=== PATIENT | female | born 1950 | race Caucasian/White ===

== ENCOUNTER 2022-09-08 12:07 | Outpatient (OUT) | payer MEDICARE, SELFPAY ==
[2022-09-08 12:39] LABS: Hematocrit 42.4 % (36.0-48.0); Hemoglobin 13.9 g/dL (12.0-16.0)
[2022-09-08 12:42] LABS: Bilirubin Urine NEGATIVE (NEGATIVE); Blood Urine NEGATIVE (NEGATIVE); Clarity Urine CLEAR (CLEAR); Color Urine LT. YELLOW (YELLOW); Glucose Urine UA NEGATIVE (NEGATIVE); Ketones Urine NEGATIVE (NEGATIVE); Leukocyte Esterase Urine LARGE (NEGATIVE); Nitrite Urine NEGATIVE (NEGATIVE); Protein Urine TRACE mg/dL (NEG/TRACE); pH Urine 6.5 (5.0-9.0)
[2022-09-08 13:08] LABS: Creatinine Urine Random 140.56 mg/dL (20.00-300.00); Protein Creatinine Ratio Urine 0.23
[2022-09-08 13:15] LABS: Alanine Aminotransferase 23 U/L (14-59); Albumin Globulin Ratio 1.1; Alkaline Phosphatase 73 U/L (46-116); Anion Gap 8.6; Aspartate Amino Transferase 20 U/L (15-37); BUN Creatinine Ratio 16.3; Bilirubin Total 0.4 mg/dL (0.2-1.0); Calcium 9.9 mg/dL (8.5-10.1); Carbon Dioxide 27.6 mmol/L (21.0-32.0); Chloride 100 mmol/L (98-107); Estimated GFR (African America >60 (>=60); Estimated GFR (Non-African Ame 55 (>=60); Globulin 3.5 g/dL; Glucose 103 mg/dL (74-106); Potassium 4.2 mmol/L (3.5-5.1); Sodium 132 mmol/L (136-145); Total Protein 7.5 g/dL (6.4-8.2); Uric Acid 2.9 mg/dL (2.6-6.0)
[2022-09-09 10:09] LABS: PTH, Intact 19 pg/mL (15-65)
== END 2022-09-08 12:08 | disposition home or self-care (01) ==
LOC: LAB 12:13
PROVIDERS: PCP Family Medicine; Visit Provider Internal Medicine Nephrology
DX: E10.21 Type 1 diabetes mellitus with diabetic nephropathy (principal); N18.32 Chronic kidney disease, stage 3b; E78.5 Hyperlipidemia, unspecified; I10 Essential (primary) hypertension
CPT/HCPCS: 36415; 80053; 81003; 82306; 82570; 83735; 83970; 84100; 84156; 84550; 85014; 85018

== ENCOUNTER 2022-12-30 14:15 | Outpatient (OUT) | payer MEDICARE, SELFPAY ==
--- NOTE | 2022-12-30 14:23 | XR_ITS ---
[address] [address] Patient Name: NETTA DAWSON MRN: [id number] date: 1950 Sex: F Assigned Patient Location: [facility] Current Patient Location: Accession/Order Number: [id number] Exam Date: 12/30/2022 14:40 Report Date: 12/31/2022 02:53 At the request of: DEWAYNE RICHEY Procedure: XR DEXA axial skeleton EXAMINATION: XR DEXA axial skeleton HISTORY: Primary Ovarian Failure Z00.01 COMPARISON: DEXA bone densitometry 09/28/2017 TECHNIQUE: Dual-energy X-ray absorptiometry (DXA) was performed. FINDINGS: SPINE ANALYSIS: Average bone mineral density is 1.209 g/cm2. T-score (standard deviation relative to young adult mean): 0.1 . -0.3% change since prior study. HIP ANALYSIS: Lowest bone mineral density is within the right femoral neck, 0.711 g/cm2. T-score (standard deviation relative to young adult mean): -2.4 . -10.7% change since prior study. XR/XR DEXA axial skeleton IMPRESSION: [employer] Classification: Osteopenia - Moderate Fracture Risk Electronically authenticated by: LISETTE FELIX Date: 12/31/2022 02:53
--- NOTE | 2022-12-30 14:23 | MM_ITS ---
Patient Name: NETTA DAWSON MR#: [id number] : 1950 Exam Date: 12/30/2022 Ordering Doctor: DR. DEWAYNE RICHEY . RADIOLOGY REPORT PROCEDURE: MM TOMOSYNTHESIS SCREENING BI COMPARISON: MG MAMM SCREEN 3D LESIA CAD, 12/01/2021. MG MAMM SCREEN 3D LESIA CAD, 11/28/2020. MG MAMM SCREEN LESIA W CAD, 11/16/2019. MG MAMM LESIA SCRN W CAD DIG, 04/17/2013. INDICATIONS: Screening Calculator Name NCI Breast Cancer Risk Assessment Tool 5 Year Breast Cancer Risk 1.50% Lifetime Breast Cancer Risk 3.50% Personal Breast Cancer No Personal Ovarian Cancer No Treatments None Family Cancers None LOCATION: [facility] BREAST COMPOSITION: Scattered areas fibroglandular density. FINDINGS: DIAGNOSTIC CATEGORY 2--BENIGN FINDING: RIGHT BREAST: No significant suspicious finding. Scattered benign-appearing calcifications are present. No significant change has occurred. LEFT BREAST: No significant suspicious finding. Scattered benign-appearing calcifications are present. No significant change has occurred. RECOMMENDATIONS: ROUTINE MAMMOGRAM AND CLINICAL EVALUATION IN 12 MONTHS. PLEASE NOTE: A NORMAL MAMMOGRAM DOES NOT EXCLUDE THE POSSIBILITY OF BREAST CANCER. A CLINICALLY SUSPICIOUS PALPABLE LUMP SHOULD BE BIOPSIED. Dictated by: Daniel Patel M.D. on 01/05/2023 at 12:59 Approved by: Daniel Patel M.D. on 01/05/2023 at 13:02
== END 2022-12-30 14:16 | disposition home or self-care (01) ==
LOC: MAMMO 14:15
PROVIDERS: PCP Family Medicine; Visit Provider Family Medicine
DX: Z12.31 Encounter for screening mammogram for malignant neoplasm of breast (principal); Z00.01 Encounter for general adult medical examination with abnormal findings; E28.39 Other primary ovarian failure; M85.80 Other specified disorders of bone density and structure, unspecified site
CPT/HCPCS: 77063; 77067; 77080

== ENCOUNTER 2023-02-22 12:31 | Outpatient (OUT) | payer MEDICARE, SELFPAY ==
--- OUTSIDE RECORDS SUMMARY | 2023-02-22 12:34 | XMS_ITS | CCD ---
Author Name Unknown Address [address] [place] [address] Organization [facility] Care Team Providers Care Midwife Practitioner Name Role Phone Darlene Hatfield Unavailable Unavailable Unavailable [facility] Consulting MIKEY Olson Attending Unavailable AMARILIS PIERCE Admitting Unavailable DARLENE HATFIEDL Primary Care Unavailable [facility], [facility] Consulting Unavailable Oxana Felipe Unavailable Ramsey Steward Unavailable Selene, Dr. Darlene Elena Primary Care Unavailab le McGuinn II, Dr. Zak Kendall Referring Unavailable McGuinn II, Dr. Zak Kendall Attending Unavailable Selene, Dr. Darlene Elena Primary Care Unavailab le McGuinn II, Dr. Zak Kendall Attending Unavailable McGuinn II, Dr. Zak Kendall Referring Unavailable Hatfield, Dr. Darlene Elena Primary Care Unavailab le McGuinpatricia II, Dr. Zak Kendall Attending Unavailable Abramuinn II, Dr. Zak Kendall Referring Unavailable Hatfield, Dr. Darlene Elena Primary Care Unavailab le McGuinn II, Dr. Zak Kendall Referring Unavailable McGuinn II, Dr. Zak Kendall Attending Unavailable Hatfield, Dr. Darlene Elena Primary Care Unavailab le McGuinn II, Dr. Zak Kendall Attending Unavailable McGuinn II, Dr. Zak Kendall Referring Unavailable Hatfield, Dr. Darlene Elena Primary Care Unavailab le McGuinn II, Dr. Zak Kendall Attending Unavailable McGuinn II, Dr. Zak Kendall Referring Unavailable Selene, Dr. Darlene Elena Primary Care Unavailab le McGuinn II, Dr. Zak Kendall Referring Unavailable McGuinn II, Dr. Zak Kendall Attending Unavailable Hatfield, Dr. Darlene Elena Primary Care Unavailab deloris Nguyen II, Dr. Zak Kendall Attending Unavailable McGuinn II, Dr. Zak Kendall Referring Unavailable Hatfield, Dr. Darlene Elena Primary Care Unavailab deloris Nguyen II, Dr. Zak Kendall Attending Unavailable McGuinn II, Dr. Zak Kendall Referring Unavailable DEWAYNE RICHEY Primary Care Unavailable HATFIELD ., DR DARLENE Cuevas Attending Unavailable HATFIELD ., DR DARLENE Cuevas Admitting Unavailable HATFIELD ., DR DARLENE Cuevas Consulting Unavailable HATFIELD ., DR DARLENE Cuevas Primary Care Unavailable RADHA OGLESBY Consulting Unavailable BAKHOUS, AZIZ Admitting Unavailable BAKHOUS, AZIZ Attending Unavailable BAKHOUS, AZIZ Consulting Unavailable HATFIELD ., DR DARLENE Cuevas Primary Care Unavailable HATFIELD ., DR DARLENE Cuevas Attending Unavailable HATFIELD ., DR DARLENE Cuevas Admitting Unavailable HATFIELD ., DR DARLENE Cuevas Consulting Unavailable HATFIELD ., DR DARLENE Cuevas Primary Care Unavailable HATFIELD ., DR DARLENE Cuevas Admitting Unavailable HATFIELD ., DR DARLENE Cuevas Attending Unavailable HATFIELD ., DR DARLENE Cuevas Consulting Unavailable HATFIELD ., DR DARLENE Cuevas Admitting Unavailable HATFIELD ., DR DARLENE Cuevas Attending Unavailable HATIFELD ., DR DARLENE Cuevas Consulting Unavailable HATFIELD ., DR DARLENE Cuevas Primary Care Unavailable [place], DR JAVAD Katz Consulting Unavailable HATFIELD ., DR DARLENE Cuevas Consulting Unavailable HATFIELD ., DR DARLENE Cuevas Admitting Unavailable HATFIELD ., DR DARLENE Cuevas Attending Unavailable HATFIELD ., DR DARLENE Cuevas Primary Care Unavailable HATFIELD ., DR DARLENE Cuevas Admitting Unavailable HATFIELD ., DR DARLENE Cuevas Attending Unavailable HATFIELD ., DR DARLENE Cuevas Consulting Unavailable HATFIELD ., DR DARLENE Cuevas Primary Care Unavailable HATFIELD ., DR DARLENE Cuevas Admitting Unavailable HATFIELD ., DR DARLENE Cuevas Attending Unavailable HATFIELD ., DR DARLENE Cuevas Consulting Unavailable HATFIELD ., DR DARLENE Cuevas Primary Care Unavailable HATFIELDDARLENE Primary Care Physician [phone] Dewayne Richey. Primary Care Physician [phone] Dewayne Richey. Attending Unavailable Pilar Rodriguez Attending Unavailable HATFIELD, DARLENE Cuevas Attending Unavailable Dewayne Richey. Admitting Unavailable Dewayne Richey. Attending Unavailable HATFIELDDARLENE Admitting Unavailable HATFIELD, DARLENE Cuevas Attending Unavailable Denia Rowell Attending Unavailable Denia Rowell Attending Unavailable Denia Rowell Attending Unavailable Denia Rowell Attending Unavailable Denia Rowell Attending Unavailable Denia Rowell Attending Unavailable Denia Rowell Attending Unavailable Denia Rowell Attending Unavailable Denia Rowell Attending Unavailable Denia Rowell Attending Unavailable Dewayne Richey Attending Unavailable Dewayne Richey Attending Unavailable DARLENE HATFIELD Attending Unavailable Allergies Allergy Classification Reported Allergen(s) Allergy Type Date of Onset Reaction(s) Facility (12 sources) Diclofenac / miSOPROStol; Translations: [diclofenac-miso prostol] Drug Allergy Unknown (qualifier value) [facility] (1 source) Diclofenac / miSOPROStol; Translations: [Arthrotec] Drug Allergy [facility] Repository Medications Current Medications Medication Drug Class(es) Dates Sig (Normalized) Sig (Original) amLODIPine 5 mg oral tablet (20 sources) Dihydropyridine Calcium Channel Autumn Start: 12-21-2022 take 5 mg by mouth once daily amlodipine 5 mg, Oral, Daily, Refills(s) 0 Start Date: 12/21/22 Status: Ordered Start: 05-25-2022 take 0.5 tablet by [facility] once daily amLODIPine 10 mg Tab See Instructions, 1/2 tab(s) Oral Daily, Refills(s) 0 Start Date: 05/25/22 Status: Ordered Start: 08-27-2021 take 1 tablet by li th once daily amLODIPine Besylate 5 MG Oral Tablet TAKE 1 TABLET DAILY. Quantity: 90 Refills: 3 Ordered: 07-Oct-2022 Zak Nguyen MD Start : 27-Aug-2021 Active dose decrease take 1 tablet by li th once daily amLODIPine Besylate 10 MG Oral Tablet TAKE 1 TABLET DAILY DIRECTED. Quantity: 90 Refills: 3 Ordered: 22-Jul-2021 DO Active Aspir-81 81 MG (4 sources) Aspir-81 81 MG Orally Once a day Active aspirin 81 mg delayed release oral tablet (20 sources) Platelet Aggregation Inhibitor, Nonsteroidal Anti-inflammatory Drug Start: 3 take 1 tablet by mouth once daily aspirin 81 mg Oral EC Tab 81 mg = 1 tab(s), Oral, Daily, Refills(s) 0 Start Date: 05/25/22 Status: Ordered calcium carbonate 1500 mg oral tablet (3 sources) take 1 tablet by mouth every twenty-four hours Calcium 600 MG 1 tablet with meals Orally Once a day Active canagliflozin (1 source) Sodium-Glucose Cotransporter 2 Inhibitor Invokana Active cinnamon preparation 500 mg oral tablet (4 sources) Non-Standardized Food Allergenic Extract take 500 mg by mouth once daily Cinnamon 500 MG as directed Orally ONCE A DAY Active Cinnamon Active clopidogrel 75 mg oral tablet (20 sources) P2Y12 Platelet Inhibitor Start: 12-11-2020 take 1 tablet by mouth once daily clopidogrel 75 mg Tab 75 mg = 1 tab(s), Oral, Daily, Refills(s) 0 Start Date: 05/25/22 Status: Ordered Foltanx oral tablet (7 sources) Start: 12-22-2022 Foltanx oral t ablet 1 tab(s), Oral, Daily, 90 tab(s), Refill(s) 0, [id number], 158, cm, 12/21/22 13:46:00 EST, Height/Length Dosing, 81.6, kg, 12/21/22 13:46:00 EST, Weight Dosing Start Date: 12/22/22 Status: Ordered HumaLOG KwikPen (1 source) HumaLOG KwikPen Active 3 ml insulin glargine 100 unt/ml pen injector (20 sources) Insulin Analog Start: 10-21-2022 Lantus Solosta r Pen 100 units/mL subcutaneous solution 15 unit(s), SubCutaneous, Once a day (at bedtime), # 15 mL, Refills(s) 3, [facility] 157.5, cm, 10/05/22 16:38:00 EDT, Height/Length Dosing, 82.4, kg, 10/05/22 16:38:00 EDT, Weight Dosing Start Date: 10/21/22 Status: Ordered Start: 05-25-2022 Lantus Solosta r Pen 100 units/mL subcutaneous solution 15 unit(s), SubCutaneous, Once a day (at bedtime), Refills(s) 0 Start Date: 05/25/22 Status: Ordered Lantus 100 UNIT/ ML Subcutaneous Solution INJECT SUBCUTANEOUSLY DIRECTED. Quantity: 0 Refills: 0 Ordered: 22-Jul-2021 DO Active inject 15 [IU] by sandhu bcutaneous injection once daily at bedtime Lantus 100 UNIT/ML 15 units Subcutaneous qhs Active inject 20 [IU] by sanhdu bcutaneous injection once daily at bedtime Lantus 100 UNIT/ML 20 units Subcutaneous qhs Active 3 ml insulin lispro 100 unt/ml pen injector (20 sources) Insulin Analog Start: 12-01-2022 HumaLOG KwikPe n 100 units/mL injectable solution See Instructions, AC & HS coverage 150-200 2U, 201-250 4U, 251-300 6U. 301-350 8U. 351-400 10U with carb coverage, # 15 EA, Refills(s) 3, Pharmacy: [facility] ([facility]), 157.5, cm, 10/05/22 16:38:00 EDT, Height/Length Dosing, 82.4, kg, 10/05/22 16:38:00 EDT, Weight Dosing Start Date: 12/01/22 Status: Ordered Start: 05-25-2022 HumaLOG KwikPe n 100 units/mL injectable solution See Instructions, AC & HS coverage 150-200 2U, 201-250 4U, 251-300 6U. 301-350 8U. 351-400 10U with carb coverage, Refills(s) 0 Start Date: 05/25/22 Status: Ordered HumaLOG KwikPen 100 UNIT/ML Subcutaneous Solution Pen-injector USE DIRECTED Quantity: 0 Refills: 0 Ordered: 22-Jul-2021 DO Active HumaLOG KwikPen 100 UNIT/ML as directed Subcutaneous SLIDING SCALE Active C-Ytcfcapylcyw-Q5-B12 3-35-2 MG (3 sources) take 1 tablet by mouth twice daily V-Ewkcpgepxzqd-W3-B12 3-35-2 MG 1 tablet Orally Twice a day Active losartan potassium 100 mg oral tablet (20 sources) Angiotensin 2 Receptor Autumn Start : 05-25 take 1 tablet by mouth once daily losartan 100 mg Tab 100 mg = 1 tab(s), Oral, Daily, Refills(s) 0 Start Date: 05/25/22 Status: Ordered Losartan Potassi um 50 MG Orally qhs Active meclizine hydrochloride 12.5 mg oral tablet (20 sources) Antiemetic Start: 05-25-2022 take 1 tablet by mouth three times daily as needed for dizziness meclizine 12.5 mg Tab 12.5 mg = 1 tab(s), Oral, TID, as needed for dizziness, Refills(s) 0 Start Date: 05/25/22 Status: Ordered Meclizine HCl Ac tive Multivitamin preparation (4 sources) take 1 tablet by li th once daily Multivitamin - 1 tablet Orally Once a day Active Multivitamin Act tra nitroglycerin 0.4 mg sublingual tablet (20 sources) Nitrate Vasodilator Start: 05-25-2022 NitroStat 0.4 mg Tab See Instructions, use as needed for chest pain, Refills(s) 0 Start Date: 05/25/22 Status: Ordered Nitroglycerin 0. 4 MG Sublingual Tablet Sublingual PL[address] 1 TABLET UNDER THE TONGUE EVERY 5 MINUTES FOR UP TO 3 DOSES NEEDED FOR CHEST PAIN.CALL 911 IF PAIN PERSISTS. Quantity: 25 Refills: 11 Ordered: 22-Jul-2021 DO Active Nitroglycerin Ac tive Pen Eighty Eight (5 sources) Start: 01-05-2023 Pen Eighty Eight Pe n Eighty Eight, See Instructions, 300 EA, 1, To be used with admin. of insulin QID. Dx: E11.22, [facility], Supply, 158, cm, 12/21/22 13:46:00 EST, Height/Length Dosing, 81.6, kg, 12/21/22 13:46:00 EST, Weight Dosing Start Date: 01/05/23 Status: Ordered rosuvastatin calcium 20 mg oral tablet (20 sources) HMG-CoA Reductase Inhibitor Start: 02-04-2021 take 1 tablet by mouth once daily rosuvastatin 20 mg Tab 20 mg = 1 tab(s), Oral, Daily, Refills(s) 0 Start Date: 05/25/22 Status: Ordered Rosuvastatin Taco [employer]ium Active SITagliptin 100 mg oral tablet (20 sources) Dipeptidyl Peptidase 4 Inhibitor Start: 12-17-2022 take 1 tablet by mouth once daily Januvia 100 mg Tab See Instructions, TAKE 1 TABLET BY MOUTH DAILY, # 90 tab(s), Refills(s) 3, Pharmacy: [facility], 157.5, cm, 10/05/22 16:38:00 EDT, Height/Length Dosing, 82.4, kg, 10/05/22 16:38:00 EDT, Weight Dosing Start Date: 12/17/22 Status: Ordered take 1 tablet by mouth once magi y Januvia 100 MG Oral Tablet TAKE 1 TABLET DAILY. Quantity: 0 Refills: 0 Ordered: 22-Jul-2021 DO Active Januvia Active Ticagrelor (1 source) Brilinta Active Completed/Discontinued Medications Medication Drug Class(es) Dates Sig (Normalized) Sig (Original) amitriptyline hydrochloride 25 mg oral tablet (5 sources) Tricyclic Antidepressant take 1 tablet by mouth at bedtime Amitriptyline HCl - 25 MG Oral Tablet TAKE 1 TABLET AT BEDTIME. Quantity: 0 Refills: 0 Ordered: 22-Jul-2021 DO Active Amitriptyline HC l 50 MG 2 Orally qhs Active biotin 1 mg oral tablet (16 sources) take 1 tablet by li th once daily Biotin 1000 MCG Oral Tablet Take 1 tablet daily Quantity: 0 Refills: 0 Ordered: 05-Dec-2021 DO Active take 1 tablet by li th every twenty-four hours Biotin 1000 MCG 1 tablet Orally Once a day Active Biotin 1000 MCG Oral Tablet TAKE DIRECTED PER PACKAGE INSTRUCTIONS. Quantity: 0 Refills: 0 Ordered: 22-Jul-2021 DO Active Biotin Active Calcium (9 sources) Phosphate Binder, Calcium Calciu m 600 TABS TAKE 1 TABLET DAILY. Quantity: 0 Refills: 0 Ordered: 05-Dec-2021 DO Active Calcium Active cinnamon bark 500 mg oral capsule (12 sources) Cinnamon 500 MG Oral Capsule TAKE DIRECTED. Quantity: 0 Refills: 0 Ordered: 22-Jul-2021 DO Active Ketorolac (6 sources) Nonsteroidal Anti-inflammatory Drug, Cyclooxygenase Inhibitor Start: 04-20-2019 Toradol per 15 mg Apr, 15 mg Start: 01-09-2018 Toradol per 15 mg Jan, 30 mg V-Bdhyozohavbv-D3-B12 3-35-2 MG Oral Tablet (8 sources) take 1 tablet by mouth once daily M-Dtplqixqyftw-Y0-B12 3-35-2 MG Oral Tablet Take 1 tablet daily Quantity: 0 Refills: 0 Ordered: 22-Jul-2021 DO Active N-Xrqbjmojgrny-P5-B12 3-35-2 MG TABS (4 sources) Z-Iqbadyrojpeo-P 6-B12 3-35-2 MG TABS Take 1 tablet daily Quantity: 0 Refills: 0 Ordered: 22-Jul-2021 DO Active lutein 25 mg / zeaxanthin 5 mg oral capsule (12 sources) take 1 capsule by mouth once daily Lutein-Zeaxanthin 25-5 MG Oral Capsule TAKE 1 CAPSULE Daily Quantity: 0 Refills: 0 Ordered: 05-Dec-2021 DO Active Lutein-Zeaxanthi n 25-5 MG as directed Orally ONCE A DAY Active Lutein-Zeaxanthi n Active melatonin 10 mg oral capsule (12 sources) take 1 capsule by mo uth at bedtime [facility] Melatonin 10 MG Oral Capsule TAKE 1 CAPSULE Bedtime Quantity: 0 Refills: 0 Ordered: 05-Dec-2021 DO Active take 1 tablet by li th once daily at bedtime as needed Melatonin 10 MG 1 tablet at bedtime as needed Orally Once a day Active Melatonin 3 MG 2 Orally qhs Active 24 hr metoprolol succinate 50 mg extended release oral tablet (5 sources) beta-Adrenergic Autumn Start: 08-27-2021 Metopr olol Succinate ER 50 MG Oral Tablet Extended Release 24 Hour take 1/2 tablet daily for 2 weeks, then take 1/2 tablet every other day for 2 weeks, then discontiune. Quantity: 90 Refills: 0 Ordered: 27-Aug-2021 Zak Nguyen MD Start : 27-Aug-2021 Active Start: 02-04-2021 take 1 tablet by li th once daily Metoprolol Succinate ER 50 MG Oral Tablet Extended Release 24 Hour Take 1 tablet daily Quantity: 90 Refills: 3 Ordered: 04-Feb-2021 Christie Hilliard Start : 04-Feb-2021 Active Metoprolol Succi sadie Active Multi Vitamin TABS (8 sources) Multi Vitamin TA BS TAKE 1 TABLET DAILY. Quantity: 0 Refills: 0 Ordered: 05-Dec-2021 DO Active Triamcinolone (6 sources) Corticosteroid Start: 04-20-2019 KENALOG - 10 m g Apr, 40 mg Start: 12-05-2018 KENALOG - 10 m g Nov, 40 mg Problems Active Problems Problem Classification Problem Date Documented Date Episodic/Chronic Adjustment disorders (12 sources) Adjustment disorder; Translations: [Prolonged grief disorder] 12-28-2022 Chronic Anxiety disorders (5 sources) Complex posttraumatic stress disorder 01-04-2023 Chronic Cardiac dysrhythmias (12 sources) Ventricular premature beats; Translations: [Other premature beats] Chronic Chronic kidney disease (15 sources) Chronic kidney disease stage 3; Translations: [Chronic kidney disease, stage 3 unspecified] 05-25-2022 Chronic Conditions associated with dizziness or vertigo (12 sources) Vertigo; Translations: [Dizziness and giddiness] Episodic Coronary atherosclerosis and other heart disease (13 sources) Coronary arteriosclerosis; Translations: [Coronary atherosclerosis of unspecified type of vessel, [place] or graft] Chronic Diabetes mellitus with complications (19 sources) Renal disorder due to type 1 diabetes mellitus; 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] Onset: 01-10-2022 Chronic Diabetes mellitus without complication (20 sources) Diabetes mellitus; Translations: [Diabetes mellitus without mention of complication, type II or unspecified type, not stated as uncontrolled] Onset: 04-06-2022 Chronic Disorders of lipid metabolism (20 sources) Hyperlipidemia; Translations: [Other and unspecified hyperlipidemia] Onset: 01-07-2022 Chronic Esophageal disorders (9 sources) Gastroesophageal reflux disease 05-25-2022 Chronic Essential hypertension (17 sources) Benign essential hypertension; Translations: [Benign essential hypertension] Chronic Hypertension with complications and secondary hypertension (1 source) Hypertensive chronic kidney disease with stage 1 through stage 4 chronic kidney disease, or unspecified chronic kidney disease; Translations: [HTN CKD W/STAGE 1-4 CKD/UNS CKD] Onset: 05-31-2022 Chronic Other bone disease and musculoskeletal deformities (4 sources) Osteopenia 01-06-2023 Episodic Other diseases of kidney and ureters (1 source) Cyst of kidney, acquired; Translations: [CYST OF KIDNEY ACQUIRED] Onset: 05-31-2022 Episodic Other disorders of stomach and duodenum (9 sources) Gastroparesis syndrome 05-25-2022 Episodic Other nutritional; endocrine; and metabolic disorders (13 sources) Obesity; Translations: [Obesity, unspecified] Chronic Unclassified (3 sources) CHRN KIDNEY DISEASE STG 3 UNSP; Translations: [CHRN KIDNEY DISEASE STG 3 UNSP] Onset: 08-08-2021 Viral infection (4 sources) Postherpetic neuralgia; Translations: [Other postherpetic nervous system involvement] Episodic Past or Other Problems Problem Classification Problem Date Documented Da te Episodic/Chronic Chronic kidney disease (3 sources) Chronic kidney disease; Translations: [CHRONIC KIDNEY DISEASE STAGE 3B] Onset: 05-31-2022 Other injuries and conditions due to external causes (1 source) Unspecified injury of lower back, initial encounter; Translations: [Injury of back, initial encounter S39.92XA] Onset: 11-18-2020 Resolved: 11-18-2020 Episodic Other screening for suspected conditions (not mental disorders or infectious disease) (4 sources) Encounter for screening mammogram for malignant neoplasm of breast; Translations: [ENC SCR MAMMO MALIG NEOPLASM BREAST] Onset: 12-01-2021 Episodic Unclassified (12 sources) Never smoked tobacco; Translations: [Never smoker] Unclassified (1 source) CHRN KIDNEY DISEASE STG 3 UNSP; Translations: [CHRN KIDNEY DISEASE STG 3 UNSP] Onset: 08-06-2021 Results Test Name Value Interpretation Reference Range Facil ity Dexa Scanson 01-06-2023 Dexa Scans [id number] 02 [id number]#1.00 TIFF Normal [facility] Outside Mammographyon 2022 Outside Mammography [id number] 10 [id number]#1.0 0TIFF Normal [facility] RAD - MISCon 01-06-2023 RAD - MISC [id number] 10 [id number]#1.0 0TIFF Normal [facility] Interdisciplinary Note - Soc ial Workeron 01-04-2023 Interdisciplinary Note - Sewing Line Baler This SW made a tc to patient today to follow up on her positive depression screen. Patient states things are going well and she has gotten connected with [facility] through [facility]. She has been following with Denia for 2 weeks. SW will remain available. Normal [facility] Family Medicine Office/Clini c Noteon 12-24-2022 Family Medicine Office/Clinic Note Chief Complaint Subsequent Medicare Wellness Visit History of Present Illness I was in the office and available for consultation and to provide direct supervision at the time of this visit. I have provided supervision of the care team and have reviewed this chart and office note and agree with the plan of care. Covid-19, MERS, Ebola Screen *Contact With Person With Highly Contagious Disease Like Ebola/MERS/COVID-19 AND Have One or More of the Symptoms Below : No *Travel to a Country With Wide-Spread Ebola/MERS/COVID-19 in the Past 21 Days AND Have One or More of the Symptoms Below : No Patient Reported Covid-19 Testing : No *Verify Droplet, Contact Precautions for Ebola (Reference for CDC) : N/A *Verify Airborne, Droplet Precautions for MERS/COVID-19 : N/A Jimy Mueller - 12/21/2022 13:43 EST Medicare/Medicaid Summary Systolic Blood Pressure : 136 mmHg Diastolic Blood Pressure : 68 mmHg Blood Pressure Location : Right arm Blood Pressure Position : Sitting O2 Sat Resting/Exertion Alpha : Resting Peripheral Pulse Rate : 80 bpm SpO2 : 98 % Jmiy Mueller - 12/21/2022 13:43 EST Chief Complaint : Subsequent Medicare Wellness Visit Patient Counseled : Nutrition, Physical activity Height/Length Measured : 158 cm(Converted to: 5 ft 2 in, 62.20 in) Weight Measured : 81.6 kg(Converted to: 179 lb 14 Ounces, 179.897 lb) Body Mass Index Measured : 32.69 kg/m2 Height in Inches : 62 in Weight in Pounds : 179.52 lb Waist Measurement : 101 cm(Converted to: 40 in) Pain Present : No actual or suspected pain Jimy Mueller - 12/21/2022 12:53 EST Hearing and Vision Screening FT FT Whisper Test Comments : no issues or concerns Jimy Mueller 12/21/2022 12:53 EST Vision Screen Comments : wears corrective lenses, follows with [facility]/ Dr. Cui yearly or as needed Jimy Mueller 12/21/2022 13:43 EST Advance Directive FT Advance Directive : Yes Type of Advance Directive : Living will, Medical durable power of assistant attorney general Location of Advance Directive : Unable to obtain copy Patient Wishes to Receive Further Information on Advance Directives : No Organ Donation Consent : Yes Jimy Mueller 12/21/2022 12:53 EST Procedures / Surgeries FT - Procedure History (As Of: 12/21/2022 13:46:58 EST) Anesthesia Minutes: 0 ; Procedure Name: Cholecystectomy ; Procedure Minutes: 0 ; Last Reviewed Dt/Tm: 12/21/2022 12:56:55 EST Anesthesia Minutes: 0 ; Procedure Name: Cataracts ; Procedure Minutes: 0 ; Last Reviewed Dt/Tm: 12/21/2022 12:56:55 EST Anesthesia Minutes: 0 ; Procedure Name: Appendectomy ; Procedure Minutes: 0 ; Last Reviewed Dt/Tm: 12/21/2022 12:56:55 EST Anesthesia Minutes: 0 ; Procedure Name: Tonsillectomy and adenoidectomy ; Procedure Minutes: 0 ; Last Reviewed Dt/Tm: 12/21/2022 12:56:55 EST Anesthesia Minutes: 0 ; Procedure Name: Arthroscopy ; Procedure Minutes: 0 ; Comments: 05/25/2022 14:14 EDT - Ivonne Singh LPN left knee ; Last Reviewed Dt/Tm: 12/21/2022 12:56:55 EST Family History Family History (As Of: 12/21/2022 13:46:58 EST) Negative History Medicare/Medicaid Social History FT Social History (As Of: 12/21/2022 13:46:58 EST) Alcohol: Household alcohol concerns: No. Comments: 12/21/2022 12:57 - Jimy Mueller: denies (Last Updated: 12/21/2022 12:57:14 EST by Jimy Mueller) Tobacco: Never (less than 100 in lifetime) Tobacco Use:. Never Smokeless Tobacco Use:. Household tobacco concerns: No. Comments: 12/21/2022 12:57 - Jimy Mueller: never a smoker (Last Updated: 12/21/2022 12:57:32 EST by Jimy Mueller) Health Risk Assessment FT Hazards in your house? : No Fall Risk Past Year : No Worried About Falling : No Use a Cane or Walker? : No Someone Helps You in the Morning : No Fallen or felt dizzy standing up? : No Assistance with personal care? : No Trouble taking meds correctly? : No HRA Pain Present : No Able to walk without help? : Yes Ability to shop w/out help : Yes Prepare your own meals? : Yes Housework without help? : Yes Handle money without help : Yes Track own medications without help? : Yes Overall mood for past four weeks : Good and bad parts about equal General health rating : Good Someone avail. to help if needed? : Yes, as much as I wanted Phys. & emotional health limit social act? : Slightly Confident you control health problems : Very confident Difficulties driving your car? : No Seatbelts : I always fasten my seat belt Jimy Mueller - 12/21/2022 13:43 EST HRA little interest or pleasure? : Yes HRA down, depressed, or hopeless? : Yes Jimy Mueller - 12/21/2022 12:53 EST Misc Health Risks Grid Trouble eating well : Seldom Teeth or denture problems : Never Problems using the telephone : Never (Comment: doesn't like cooking for self sometimes [Jimy Mueller - 12/21/2022 12:53 EST] ) Depression Screening Little Interest, Pleasure in Activities (ref) : Nearly every (more content not included)... [facility] Comment on above: Result Comment: Elec tronically Signed By: Dewayne Richey MD\.br\Date and Time Signed: 12/24/22 12:39 EST\.br\Electronically Co-Signed By: Jimy Mueller\.br\Date and Time Co-Signed: 12/21/22 15:15 EST Consent for Flu Vaccineon Consent for Flu Vaccine [id number] TIFF [facility] Screenson 12-22-2022 Screens [id number]. 00TIFF [facility] Ambulatory Visit Summaryon 1 02-20-2022 Ambulatory Visit Summary VICKI DAWSON :1950 Visit Date:12/21/2022 Ambulatory Visit Instructions Your Diagnosis Annual visit for general adult medical examination with abnormal findings Need for influenza vaccination Ovarian failure Screening mammogram for breast cancer Chronic kidney disease (CKD), stage III (moderate) DM type 2 causing CKD stage 3 Diabetic retinopathy GERD (gastroesophageal reflux disease) Hypercholesterolemia Class 1 obesity due to excess calories in adult Adult BMI 32.0-32.9 kg/sq m Tests Performed BD Bone Density DEXA -- Results Pending -- MA Mamm Screen w/CAD if perf and 3D [place] -- Results Pending -- Please visit your patient portal for your results or contact your primary care physician. Your Care Team Attending Physician - Dewayne Richey MD Primary Care Physician - Dewayne Richey MD This Is Your Medications List amlodipine aspirin (aspirin 81 mg Oral EC Tab) clopidogrel (clopidogrel 75 mg Tab) insulin glargine (Lantus Solostar Pen 100 units/mL subcutaneous solution) insulin lispro (HumaLOG KwikPen 100 units/mL injectable solution) losartan (losartan 100 mg Tab) meclizine (meclizine 12.5 mg Tab) multivitamin (Foltanx oral tablet) nitroglycerin (NitroStat 0.4 mg Tab) rosuvastatin (rosuvastatin 20 mg Tab) sitagliptin (Januvia 100 mg Tab) Procedures Performed Appendectomy, Arthroscopy, Cataracts, Cholecystectomy, Tonsillectomy and adenoidectomy. Discharge Vitals Heart Rate (Peripheral) 80 Blood Pressure 136/68 Height 158 cm Height 62 in Weight 81.6 kg Weight 179.52 lb BMI 32.69 What to do next Scheduled Follow-Up Appointments Wednesday 10:00 AM EST With: Denia Ding Where: [facility] Wednesday 10:00 AM EST With: Dewayne Richey MD Where: [place] [id number]- \.br\ Medications\.br \ What How Much When Instructions\.b r\ Unchanged amlodipine 5 Milligram By Mouth Every day\.br\ Unchanged aspirin (aspirin 81 mg Oral EC Tab) 1 Tablets By Mouth Every day\.br\ Unchanged clopidogrel (clopidogrel 75 mg Tab) 1 Tablets By Mouth Every day\.br\ Unchanged insulin glargine (Lantus Solostar Pen 100 units/ mL subcutaneous solution) 15 Units Subcutaneous Once a day (at bedtime)\.br\ Unchanged insulin lispro (HumaLOG KwikPen 100 units/ mL injectable solution) See instructions AC & HS coverage 150-200 2U, 201-250 4U, 251-300 6U. 301-350 8U. 351-400 10U with carb coverage \.br\ Unchanged losartan (losartan 100 mg Tab) 1 Tablets By Mouth Every day\.br\ Unchanged meclizine (meclizine 12.5 mg Tab) 1 Tablets By Mouth 3 times a day as needed for dizziness \.br\ Unchanged multivitamin (Foltanx oral tablet) 1 Tablets By Mouth Every day\.br\ Unchanged nitroglycerin (NitroStat 0.4 mg Tab) See instructions use as needed for chest pain \.br\ Unchanged rosuvastatin (rosuvastatin 20 mg Tab) 1 Tablets By Mouth Every day\.br\ Unchanged sitagliptin (Januvia 100 mg Tab) See instructions TAKE 1 TABLET BY MOUTH DAILY \.br\ Medications and Immunizations Administered\.b r\ Given\.br\ influenza virus vaccine, inactivated HIGH DOSE preservative-fr ee quadrivalent intramuscular susp, 0.7 mL, IntraMuscular. For: Need for influenza vaccination\.br \ influenza virus vaccine, inactivated, IntraMuscular\. br\ Allergies\.br\ Arthrotec (Unknown)\.br\ Problems\.br\ Ongoing - Any problem that you are currently receiving treatment for.\.br\ Chronic kidney disease (CKD), stage III (moderate)\.br\ Diabetic retinopathy\.br \ DM type 2 causing CKD stage 3\.br\ Gastroparesis\. br\ GERD (gastroesophage al reflux disease)\.br\ Hypercholestero lemia\.br\ Patient Survey\.br\ You may receive a survey via text or e-mail asking about your office visit. Please share your experience with us by completing your survey. We appreciate your feedback and thank you for choosing us for your care.\.br\ Education Materials\.br\ Fall Prevention in the Home, Adult\.br\ Falls can cause injuries and affect people of all ages. There are many simple things that you can do to make your home safe and to help prevent falls. Ask for help when making these changes, if needed.\.br\ What actions can I take to prevent falls?\.br\ General instructions\.b r\ ? \.br\ Use good lighting in all rooms. Replace any light bulbs that burn out, turn on lights if it is dark, and use night-lights.\. br\ ? \.br\ Place frequently used items in rgpq-ga-ctffr places. Lower the shelves around your home if necessary.\.br\ ? \.br\ Set up furniture so that there are clear paths around it. Avoid moving your furniture around.\.br\ ? \.br\ Remove throw rugs and other tripping hazards from the floor.\.br\ ? \.br\ Avoid walking on wet floors.\.br\ ? \.br\ Fix any uneven floor surfaces.\.br\ ? \.br\ Add color or contrast paint or tape to grab bars and handrails in your home. Place contrasting color strips on the first and last steps of staircases.\.br \ ? \.br\ When you use a stepladder, make sure that it is completely opened and that the sides and supports are firmly locked. Have someone hold the ladder while you are using it. Do not climb a closed stepladder.\.br \ ? \.br\ Know where your pets are when moving through your home.\.br\ What can I do in the bathroom?\.br\ \.br\ \.br\ ? \.br\ Keep the floor dry. Immediately clean up any water that is on the floor.\.br\ ? \.br\ Remove soap buildup in the tub or shower regularly.\.br\ ? \.br\ Use nonskid mats or decals on the floor of the tub or shower.\.br\ ? \.br\ Attach bath mats securely with double-sided, nonslip rug tape.\.br\ ? \.br\ If you need to sit down while you are in the shower, use a plastic, nonslip stool.\.br\ ? \.br\ Install grab bars by the toilet and in the tub and shower. Do not use towel bars as grab bars.\.br\ What can I do in the bedroom?\.br\ ? \.br\ Make sure that a bedside light is easy to reach.\.br\ ? \.br\ Do not use oversized bedding that reaches the floor.\.br\ ? \.br\ Have a firm chair that has side arms to use for getting dressed.\.br\ What can I do in the kitchen?\.br\ ? \.br\ Clean up any spills right away.\.br\ ? \.br\ If you need to reach for something above you, use a sturdy step stool that has a grab bar.\.br\ ? \.br\ Keep electrical cables out of the way.\.br\ ? \.br\ Do not use floor micronesian or wax that makes floors slippery. If you must use wax, make sure that it is non-skid floor wax.\.br\ What can I do with my stairs?\.br\ ? \.br\ Do not leave any items on the stairs.\.br\ ? \.br\ Make sure that you have a light switch at the top and the bottom of the stairs. Have them installed if you do not have them.\.br\ ? \.br\ Make sure that there are handrails on both sides of the stairs. Fix handrails that are broken or loose. Make sure that handrails are as long as the staircases.\.br \ ? \.br\ Install non-slip stair treads on all stairs in your home.\.br\ ? \.br\ Avoid having throw rugs at the top or bottom of stairs, or secure the rugs with carpet tape to prevent them from moving.\.br\ ? \.br\ Choose a carpet design that does not hide the edge of steps on the stairs.\.br\ ? \.br\ Check any carpeting to make sure that it is firmly attached to the stairs. Fix any carpet that is loose or worn.\.br\ What can I do on the outside of my home?\.br\ ? \.br\ Use bright outdoor lighting.\.br\ ? \.br\ Regularly repair the edges of walkways and driveways and fix any cracks.\.br\ ? \.br\ Remove high doorway thresholds.\.br \ ? \.br\ Trim any shrubbery on the main path into your home.\.br\ ? \.br\ Regularly check that handrails are securely fastened and in good repair. Both sides of all steps should have handrails.\.br\ ? \.br\ Install guardrails along the edges of any raised decks or porches.\.br\ ? \.br\ Clear walkways of debris and clutter, including tools and rocks.\.br\ ? \.br\ Have leaves, snow, and ice cleared regularly.\.br\ ? \.br\ Use sand or salt on walkways during winter months.\.br\ ? \.br\ In the garage, clean up any spills right away, including grease or oil spills.\.br\ What other actions can I take?\.br\ ? \.br\ Wear closed-toe shoes that fit well and support your feet. Wear shoes that have rubber soles or low heels.\.br\ ? \.br\ Use mobility aids as needed, such as canes, walkers, scooters, and crutches.\.br\ ? \.br\ Review your medicines with your health care provider. Some medicines can cause dizziness or changes in blood pressure, which increase your risk of falling.\.br\ Talk with your health care provider about other ways that you can decrease your risk of falls. This may include working with a physical therapist or applications trainer to improve your strength, balance, and endurance.\.br\ Where to find more information\.br \ ? \.br\ Centers for Disease Control and Prevention, [place]: www.cdc.gov\.br \ ? \.br\ [place] on Aging: www.melissa.nih.gov \.br\ Contact a health care provider if:\.br\ ? \.br\ You are afraid of falling at home.\.br\ ? \.br\ You feel weak, drowsy, or dizzy at home.\.br\ ? \.br\ You fall at home.\.br\ Summary\.br\ ? \.br\ There are many simple things that you can do to make your home safe [facility] Patient Educationon 12-22-19 23 Patient Education Caregiving Fall Prevention in the Home, Adult Falls can cause injuries and affect people of all ages. There are many simple things that you can do to make your home safe and to help prevent falls. Ask for help when making these changes, if needed. What actions can I take to prevent falls? General instructions ? Use good lighting in all rooms. Replace any light bulbs that burn out, turn on lights if it is dark, and use night-lights. ? Place frequently used items in gtwf-xf-otveo places. Lower the shelves around your home if necessary. ? Set up furniture so that there are clear paths around it. Avoid moving your furniture around. ? Remove throw rugs and other tripping hazards from the floor. ? Avoid walking on wet floors. ? Fix any uneven floor surfaces. ? Add color or contrast paint or tape to grab bars and handrails in your home. Place contrasting color strips on the first and last steps of staircases. ? When you use a stepladder, make sure that it is completely opened and that the sides and supports are firmly locked. Have someone hold the ladder while you are using it. Do not climb a closed stepladder. ? Know where your pets are when moving through your home. What can I do in the bathroom? ? Keep the floor dry. Immediately clean up any water that is on the floor. ? Remove soap buildup in the tub or shower regularly. ? Use nonskid mats or decals on the floor of the tub or shower. ? Attach bath mats securely with double-sided, nonslip rug tape. ? If you need to sit down while you are in the shower, use a plastic, nonslip stool. ? Install grab bars by the toilet and in the tub and shower. Do not use towel bars as grab bars. What can I do in the bedroom? ? Make sure that a bedside light is easy to reach. ? Do not use oversized bedding that reaches the floor. ? Have a firm chair that has side arms to use for getting dressed. What can I do in the kitchen? ? Clean up any spills right away. ? If you need to reach for something above you, use a sturdy step stool that has a grab bar. ? Keep electrical cables out of the way. ? Do not use floor micronesian or wax that makes floors slippery. If you must use wax, make sure that it is non-skid floor wax. What can I do with my stairs? ? Do not leave any items on the stairs. ? Make sure that you have a light switch at the top and the bottom of the stairs. Have them installed if you do not have them. ? Make sure that there are handrails on both sides of the stairs. Fix handrails that are broken or loose. Make sure that handrails are as long as the staircases. ? Install non-slip stair treads on all stairs in your home. ? Avoid having throw rugs at the top or bottom of stairs, or secure the rugs with carpet tape to prevent them from moving. ? Choose a carpet design that does not hide the edge of steps on the stairs. ? Check any carpeting to make sure that it is firmly attached to the stairs. Fix any carpet that is loose or worn. What can I do on the outside of my home? ? Use bright outdoor lighting. ? Regularly repair the edges of walkways and driveways and fix any cracks. ? Remove high doorway thresholds. ? Trim any shrubbery on the main path into your home. ? Regularly check that handrails are securely fastened and in good repair. Both sides of all steps should have handrails. ? Install guardrails along the edges of any raised decks or porches. ? Clear walkways of debris and clutter, including tools and rocks. ? Have leaves, snow, and ice cleared regularly. ? Use sand or salt on walkways during winter months. ? In the garage, clean up any spills right away, including grease or oil spills. What other actions can I take? ? Wear closed-toe shoes that fit well and support your feet. Wear shoes that have rubber soles or low heels. ? Use mobility aids as needed, such as canes, walkers, scooters, and crutches. ? Review your medicines with your health care provider. Some medicines can cause dizziness or changes in blood pressure, which increase your risk of falling. Talk with your health care provider about other ways that you can decrease your risk of falls. This may include working with a physical therapist or applications trainer to improve your strength, balance, and endurance. Where to find more information ? Centers for Disease Control and Prevention, [place]: www.cdc.gov ? National [place] A[place]: www.melissa.nih.gov Contact a health care provider if: ? You are afraid of falling at home. ? You feel weak, drowsy, or dizzy at home. ? You fall at home. Summary ? There are many simple things that you can do to make your home safe and to help prevent falls. ? Ways to make your home safe include removing tripping hazards and installing grab bars in the bathroom. ? Ask for help when making these changes in your home. This information is not intended to replace advice given to you by your health ca (more content not included)... Normal [facility] - Clinical Noteon Retail - Clinical Note [id number] 0CD:127 Normal [facility] Auto Diffon 10-06-2022 Basophils/100 WBC (Bld) 0.4 % Normal 0.0-2.0 [facility] Comment on above: Order Comment: Order Added by Discern Expert. Performed By: #### 2 999432, 0243615, 5387719, 613314663, 39665948, 8481804 ####[facility] [address] [place] [address] Basophils/Leukocytes Auto (Bld) [Pure # fraction] 0.0 E9/L Normal 0.0-0.2 [facility] Comment on above: Order Comment: Order Added by Discern Expert. Performed By: #### 2 376459, 8526864, 1752792, 984748220, 66466370, 6187739 ####[facility] [address] [place] [address] Eosinophils/100 WBC (Bld) 3.3 % Normal 0.0-8.0 [facility] Comment on above: Order Comment: Order Added by Discern Expert. Performed By: #### 2 190150, 2695084, 8466501, 876468619, 65110923, 7641769 ####[facility] [address] [place] [address] Eosinophils/Leukocyt es Auto (Bld) [Pure # fraction] 0.2 E9/L Normal 0.0-0.5 [facility] Comment on above: Order Comment: Order Added by Discern Expert. Performed By: #### 2 020895, 3044495, 4605485, 255654494, 87742408, 2796570 ####[facility] [address] [place] [address] Lymphocytes/100 WBC (Bld) 27.9 % Normal 14.0-50.0 [facility] Comment on above: Order Comment: Order Added by Discern Expert. Performed By: #### 2 340321, 2835804, 0547121, 334916811, 38280249, 4175720 ####[facility] [address] [place] [address] Lymphocytes/Leukocyt es Auto (Bld) [Pure # fraction] 2.0 E9/L Normal 1.0-4.0 [facility] Comment on above: Order Comment: Order Added by Discern Expert. Performed By: #### 2 570594, 0959419, 0084123, 823797996, 58011793, 4540047 ####[address] [address] Monocytes/100 WBC (Bld) 10.0 % Normal 4.0-14.0 [facility] Comment on above: Order Comment: Order Added by Moe Expert. Performed By: #### 2 869525, 8411354, 2349656, 221837957, 36096762, 1560533 ####[address] [address] Monocytes/Leukocytes Auto (Bld) [Pure # fraction] 0.7 E9/L Normal 0.2-1.0 [facility] Comment on above: Order Comment: Order Added by Moe Expert. Performed By: #### 2 147489, 9676104, 1145726, 999586327, 05442565, 0293882 ####[address] [address] Neutrophils/100 WBC (Bld) 58.4 % Normal 36.0-75.0 [facility] Comment on above: Order Comment: Order Added by Moe Expert. Performed By: #### 2 503772, 9412783, 5231675, 982811206, 53640344, 7422291 ####[address] [address] Neutrophils/Leukocyt es Auto (Bld) [Pure # fraction] 4.2 E9/L Normal 2.0-7.5 [facility] Comment on above: Order Comment: Order Added by Discern Expert. Performed By: #### 2 442354, 4195021, 4529729, 476511031, 12718226, 7119983 ####[place] [address] [place] [address] CBC w/ Auto Diffon 3 Erythrocyte distribution width (RBC) [Ratio] 16.9 % High 10.9-14.2 [facility] Comment on above: Performed By: #### 2 367100, 8693192, 1767522, 443945204, 29737558, 5478217 ####[place] [address] [place] [address] Hematocrit (Bld) [Volume fraction] 43.2 % Normal 34.0-46.0 [facility] Comment on above: Performed By: #### 2 466199, 9040689, 8702586, 004756412, 51882846, 7105853 ####[address] [address] Hemoglobin (Bld) [Mass/Vol] 13.6 g/dL Normal 12.0-16.0 [facility] Comment on above: Performed By: #### 2 976084, 1213488, 0387984, 810343801, 70534437, 5337339 ####[address] [address] MCH (RBC) [Entitic mass] 26.9 pg Low 27.0-34.0 [facility] Comment on above: Performed By: #### 2 424234, 4381317, 5441770, 511574105, 05915992, 3313738 ####[place] [address] [place] [address] MCHC (RBC) [Mass/Vol] 31.5 g/dL Normal 31.4-36.0 [facility] Comment on above: Performed By: #### 2 078779, 0164683, 2131914, 042100540, 94700968, 6223461 ####[facility] [address] [place] [address] MCV (RBC) [Entitic vol] 85.5 fL Normal 80.0-100.0 [facility] Comment on above: Performed By: #### 2 875038, 5795885, 0320040, 109333201, 03313066, 9605255 ####[place] [address] [place] [address] Platelet mean volume (Bld) [Entitic vol] 11.1 fL High 6.4-10.8 [facility] Comment on above: Performed By: #### 2 808677, 0199872, 6396279, 998265198, 10853559, 8764149 ####[address] [address] Platelets (Bld) [#/Vol] 184.0 E9/L Normal 150.0-500.0 [facility] Comment on above: Performed By: #### 2 218884, 2237165, 5894126, 355754134, 89413560, 0199108 ####[address] [address] RBC (Bld) [#/Vol] 5.1 E12/L Normal 4.3-5.9 [facility] Comment on above: Performed By: #### 2 777132, 6842957, 1690024, 730505890, 53199003, 8887838 ####[address] [address] WBC corrected for nucl RBC Auto (Bld) [#/Vol] 7.1 E9/L Normal 4.0-11.0 [facility] Comment on above: Performed By: #### 2 312887, 7145414, 2793386, 044699703, 82757452, 8025882 ####[place] [place] [address] CMPon 10-06-2022 Albumin [Mass/Vol] 4.0 g/dL Normal 3.3-5.0 [facility] Comment on above: Performed By: #### 2 191751, 5748322, 8985288, 216692086, 60363420, 5124693 ####[facility] [address] [place] [address] Albumin/Globulin (S) [Mass conc ratio] 1.1 Normal 1.1-2.2 [facility] Comment on above: Performed By: #### 2 229258, 1869155, 6907002, 024488841, 52827259, 3559884 ####[facility] [address] [place] [address] ALP [Catalytic activity/Vol] 62 Int._Unit/L Normal 21-98 [facility] Comment on above: Performed By: #### 2 708700, 8660200, 2119027, 939730088, 25511198, 4367655 ####[facility] [address] [place] [address] ALT No additional P-5'-P [Catalytic activity/Vol] 17 Int._Unit/L Normal 6-46 [facility] Comment on above: Performed By: #### 2 280791, 8027397, 9072833, 707862798, 64232807, 0950487 ####[facility] [address] [place] [address] Anion gap [Moles/Vol] 11 mmol/L Normal 6-16 [facility] Comment on above: Performed By: #### 2 609719, 2270897, 0013504, 979242961, 43753409, 9806067 ####[facility] [address] [place] [address] AST [Catalytic activity/Vol] 26 Int._Unit/L Normal 5-43 [facility] Comment on above: Performed By: #### 2 263956, 5565430, 0252543, 766121174, 93942497, 3261469 ####[facility] [address] [place] [address] Bilirubin [Mass/Vol] 0.3 mg/dL Normal 0.0-1.1 [facility] Comment on above: Performed By: #### 2 066092, 1448797, 3426761, 565901058, 68625827, 7737592 ####[facility] [address] [place] [address] Calcium [Mass/Vol] 10.1 mg/dL Normal 8.9-11.1 [facility] Comment on above: Performed By: #### 2 831755, 5004406, 1113575, 982873929, 96969214, 9816580 ####[facility] [address] [place] [address] Chloride [Moles/Vol] 102 mmol/L Normal 101-111 [facility] Comment on above: Performed By: #### 2 996161, 2357831, 5711644, 508536019, 56443238, 7170669 ####[facility] [address] [place] [address] CO2 [Moles/Vol] 28 mmol/L Normal 21-31 [facility] Comment on above: Performed By: #### 2 209028, 1459250, 3558633, 958948637, 86485739, 1085650 ####[facility] [address] [place] [address] Creatinine [Mass/Vol] 1.0 mg/dL Normal 0.5-1.3 [facility] Comment on above: Performed By: #### 2 778127, 9742573, 5494913, 394495942, 86739214, 6555874 ####[facility] [address] [place] [address] Globulin (S) [Mass/Vol] 3.5 g/dL Normal 1.4-4.0 [facility] Comment on above: Performed By: #### 2 463489, 9296089, 1752687, 612624714, 37577983, 2648176 ####[facility] [address] [place] [address] Glucose [Mass/Vol] 51 mg/dL Low 55-199 [facility] Comment on above: Result Comment: If t his glucose result represents a fasting glucose, interpretation should refer to the following reference range: 55-99 mg/dL Performed By: #### 2 049252, 4802952, 6425017, 560219883, 53149612, 9369196 ####[facility] [address] [place] [address] Potassium [Moles/Vol] 4.4 mmol/L Normal 3.5-5.3 [facility] Comment on above: Performed By: #### 2 011661, 6597525, 8583308, 224222273, 29204446, 9572042 ####[facility] [address] [place] [address] Protein [Mass/Vol] 7.5 g/dL Normal 6.0-7.8 [facility] Comment on above: Performed By: #### 2 580102, 4140095, 6769324, 820339762, 66907721, 6827727 ####[facility] [address] [place] [address] Sodium [Moles/Vol] 137 mmol/L Normal 135-145 [facility] Comment on above: Performed By: #### 2 367937, 1912975, 2244819, 902909484, 56407885, 0567683 ####[facility] [address] [place] [address] Urea nitrogen [Mass/Vol] 16 mg/dL Normal 5-21 [facility] Comment on above: Performed By: #### 2 789456, 0065476, 3250095, 718915038, 15838592, 9874942 ####[facility] [address] [place] [address] Urea nitrogen/Creatinine [Mass ratio] 16 No Units Normal 10-20 [facility] Comment on above: Performed By: #### 2 117839, 2009829, 2978254, 797745051, 43051107, 6153402 ####[facility] [address] [facility] [place] [address] JthS1zpp 10-06-2022 HbA1c (Bld) [Mass fraction] 7.0 % High <=5.9 [facility] Comment on above: Performed By: #### 2 935481, 9913488, 8870012, 230721298, 73397034, 1771435 ####[facility] [address] [place] [address] Lipid Panelon 10-06-2022 Cholesterol [Mass/Vol] 124 mg/dL Normal 120-200 [facility] Comment on above: Performed By: #### 2 356432, 5714326, 7614051, 858800229, [id number], [id number] ####[facility] [address] [place] [address] Cholesterol in HDL [Mass/Vol] 47 mg/dL Invalid Interpretation Code [facility] Comment on above: Result Comment: HDL > or equal to 60 mg/dL: Low cardiovascular risk HDL < 40 mg/dL : High cardiovascular risk Performed By: #### 2 [id number], [id number], [id number], [id number], [id number], [id number] ####[facility] [address] [place] [address] Cholesterol in LDL [Mass/Vol] 72 mg/dL Normal <=129 [facility] Comment on above: Performed By: #### 2 [id number], [id number], [id number], [id number], [id number], [id number] ####[facility] [address] [place] [address] Cholesterol in VLDL [Mass/Vol] 17 mg/dL Normal 7-40 [facility] Comment on above: Performed By: #### 2 [id number], [id number], [id number], [id number], [id number], [id number] ####[facility] [address] [place] [address] Triglyceride [Mass/Vol] 85 mg/dL Normal <=149 [facility] Comment on above: Performed By: #### 2 [id number], [id number], [id number], [id number], [id number], [id number] ####[facility] [address] [place] [address] U Microalbon 10-06-2022 Albumin DL <= 20 mg/L (U) [Mass/Vol] 63.6 microgram/mL High 0.0-19.0 [facility] Comment on above: Performed By: #### 1 [id number], [id number] ####[facility] [address] [place] [address] U Protein/Creat Ratioon 09-09 Albumin Elph (U) [Mass fraction] 16.5 mg/dL Invalid Interpretation Code [facility] Comment on above: Result Comment: The reference range and other method performance specifications have not been established for this test; results should be integrated into the clinical context for interpretation. Performed By: #### 1 [id number], [id number] ####[address] [address] Creatinine (U) [Mass/Vol] 85.4 mg/dL Invalid Interpretation Code [facility] Comment on above: Result Comment: The reference range and other method performance specifications have not been established for this test; results should be integrated into the clinical context for interpretation. Performed By: #### 1 [id number], [id number] ####[facility] [address] [place] [id number] U Prot/Creat Ratio 193.20 mg/gm Cr Normal .00-200.00 [facility] Comment on above: Performed By: #### 1 [id number], [id number] ####[address] [place] [address] eGFRon 10-06-2022 GFR/1.73 sq M.predicted among non-blacks MDRD (S/P/Bld) [Vol rate/Area] 59 mL/min/1.73 m2 Normal >=59 [facility] Comment on above: Order Comment: Order added by Discern Expert. Result Comment: Mutuel Teller seven kidney disease could be indicated at eGFR's of less than 60 mL/min/1.73m2. Kidney failure is indicated at less than 15 mL/min/1.73m2. Performed By: #### 2 [id number], [id number], [id number], [id number], [id number], [id number] ####[facility] [address] [place] [address] Family Medicine Office/Clini c Noteon 10-05-2022 Family Medicine Office/Clinic Note Chief Complaint establish care, medication check HPI Staff Vicki is a 72 year old female presenting to establish care Establish Care: History:DM, CKD,GERD,Hypercholeste rolemia Last provider: Selene Any recent labs: A1C 6.7 (07/07/22) Health Maintenance UTD: Colonoscopy: age 68 was normal told wouldn't need another one Mammogram: Due Nov 2022 Pelvic/Pap: doesn't do anymore covid: UTD Acute: Current issues/complaints: cold sxs but feels much better today than she did a week ago, runny nose yet ( grandson was sick and she was there last week) History of Present Illness Patient presents to establish care with me today. Patient has no concerns. Patient would like to talk about her diabetic medications. No other issues at this time. Review of Systems PHQ Score Initial Depression Screen Score: 2 Physical Exam Vitals & Measurements T: 36.8 ?C(Oral) HR: 74(Peripheral) RR: 14 BP: 140/68 SpO2: 97% HT: 62 in HT: 157.48 cm WT: 82.4 kg WT: 181.28 lb BMI: 33.23 General: alert, no acute distress ENMT: oral mucosa moist, Cardiovascular: regular rate and rhythm, normal peripheral perfusion Respiratory: Lungs CTA, respirations non labored Extremities: no deformity, no trauma Neurological: oriented x 4, LOC appropriate for age, CN II-XII intact, motor strength equal & normal bilaterally, speech normal Abdomen: Soft, Nontender, Non-distended, + BS Assessment/Plan 1. DM type 2 causing CKD stage 3 (E11.22: Type 2 diabetes mellitus with diabetic chronic kidney disease) - We will go ahead and recheck labs today -We will adjust medication as needed -At this time we will see the patient back in 6 months. ?May need to monitor blood sugars given her recent bout of hypoglycemia. Precautions discussed in detail and patient will call us when needed. Ordered: CBC w/ Auto Diff Comprehensive Metabolic Panel HgbA1c Lipid Panel Microalbumin Level Urine U Protein/Creat Ratio 2. GERD (gastroesophageal reflux disease) (K21.9: Gastro-esophageal reflux disease without esophagitis) - Controlled. ?We will refill medication when needed. Ordered: Body Mass Index (BMI) documented 3008F CBC w/ Auto Diff Comprehensive Metabolic Panel Current tobacco non-user 1036F Depression Screening Negative 3352F HgbA1c Lipid Panel Microalbumin Level Urine Most recent diastolic blood pressure <80 mm Hg 3078F Most recent systolic blood pressure >= 140 mm Hg 3077F Patient screen for fall risk: no falls in last year or 1 fall with no injury in last year 1101F U Protein/Creat Ratio 3. Hypercholesterolemia (E78.00: Pure hypercholesterolemia, unspecified) - Continue on cholesterol medication at this time. Ordered: Body Mass Index (BMI) documented 3008F CBC w/ Auto Diff Comprehensive Metabolic Panel Current tobacco non-user 1036F Depression Screening Negative 3352F HgbA1c Lipid Panel Microalbumin Level Urine Most recent diastolic blood pressure <80 mm Hg 3078F Most recent systolic blood pressure >= 140 mm Hg 3077F Patient screen for fall risk: no falls in last year or 1 fall with no injury in last year 1101F U Protein/Creat Ratio 4. Class 1 obesity due to excess calories in adult (E66.09: Other obesity due to excess calories) ? BMI education given patient is doing a phenomenal job losing weight. Ordered: Body Mass Index (BMI) documented 3008F CBC w/ Auto Diff Comprehensive Metabolic Panel Current tobacco non-user 1036F Depression Screening Negative 3352F HgbA1c Lipid Panel Microalbumin Level Urine Most recent diastolic blood pressure <80 mm Hg 3078F Most recent systolic blood pressure >= 140 mm Hg 3077F Patient screen for fall risk: no falls in last year or 1 fall with no injury in last year 1101F U Protein/Creat Ratio 5. Diabetic retinopathy (E11.319: Type 2 diabetes mellitus with unspecified diabetic retinopathy without macular edema) ? Continue to see ophthalmology Ordered: CBC w/ Auto Diff Comprehensive Metabolic Panel HgbA1c Lipid Panel Microalbumin Level Urine U Protein/Creat Ratio 6. BMI 33.0-33.9,adult (Z68.33: Body mass index [BMI] 33.0-33.9, adult) As above. Ordered: Body Mass Index (BMI) documented 3008F CBC w/ Auto Diff Comprehensive Metabolic Panel Current tobacco non-user 1036F Depression Screening Negative 3352F HgbA1c Lipid Panel Microalbumin Level Urine Most recent diastolic blood pressure <80 mm Hg 3078F Most recent systolic blood pressure >= 140 mm Hg 3077F Patient screen for fall risk: no falls in last year or 1 fall with no injury in last year 1101F U Protein/Creat Ratio Follow-up No qualifying data available Patient Education BMI for Adults Problem List/Past Medical History Ongoing Chronic kidney disease (CKD), stage III (moderate) Diabetic retinopathy DM type 2 causing CKD stage 3 Gastroparesis GERD (gastroesophageal reflux disease) Hypercholesterolemia Historical No qualifying data Pro (more content not included)... Normal [facility] Comment on above: Result Comment: Elec tronically Signed By: Mat JIMENEZ, Dewayne Zhao\.br\Date and Time Signed: 10/05/22 17:05 EDT Patient Educationon 10-06-19 Patient Education Nutrition BMI for Adults What is BMI? Body mass index (BMI) is a number that is calculated from a person's weight and height. BMI can help estimate how much of a person's weight is composed of fat. BMI does not measure body fat directly. Rather, it is an alternative to procedures that directly measure body fat, which can be difficult and expensive. BMI can help identify people who may be at higher risk for certain medical problems. What are BMI measurements used for? BMI is used as a screening tool to identify possible weight problems. It helps determine whether a person is obese, overweight, a healthy weight, or underweight. BMI is useful for: ? Identifying a weight problem that may be related to a medical condition or may increase the risk for medical problems. ? Promoting changes, such as changes in diet and exercise, to help reach a healthy weight. BMI screening can be repeated to see if these changes are working. How is BMI calculated? BMI involves measuring your weight in relation to your height. Both height and weight are measured, and the BMI is calculated from those numbers. This can be done either in [place] or metric measurements. Note that charts and online BMI calculators are available to help you find your BMI quickly and easily without having to do these calculations yourself. To calculate your BMI in [place] measurements: 1. Measure your weight in pounds (lb). 2. Multiply the number of pounds by 703. ? For example, for a person who weighs 180 lb, multiply that number by 703, which equals 126,540. 3. Measure your height in inches. Then multiply that number by itself to get a measurement called inches squared. ? For example, for a person who is 70 inches tall, the inches squared measurement is 70 inches x 70 inches, which equals 4,900 inches squared. 4. Divide the total from step 2 (number of lb x 703) by the total from step 3 (inches squared): 126,540 ? 4,900 = 25.8. This is your BMI. To calculate your BMI in metric measurements: 1. Measure your weight in kilograms (kg). 2. Measure your height in meters (m). Then multiply that number by itself to get a measurement called meters squared. ? For example, for a person who is 1.75 m tall, the meters squared measurement is 1.75 m x 1.75 m, which is equal to 3.1 meters squared. 3. Divide the number of kilograms (your weight) by the meters squared number. In this example: 70 ? 3.1 = 22.6. This is your BMI. What do the results mean? BMI charts are used to identify whether you are underweight, normal weight, overweight, or obese. The following guidelines will be used: ? Underweight: BMI less than 18.5. ? Normal weight: BMI between 18.5 and 24.9. ? Overweight: BMI between 25 and 29.9. ? Obese: BMI of 30 or above. Keep these notes in mind: ? Weight includes both fat and muscle, so someone with a muscular build, such as an athlete, may have a BMI that is higher than 24.9. In cases like these, BMI is not an accurate measure of body fat. ? To determine if excess body fat is the cause of a BMI of 25 or higher, further assessments may need to be done by a health care provider. ? BMI is usually interpreted in the same way for men and women. Where to find more information For more information about BMI, including tools to quickly calculate your BMI, go to these websites: ? Centers for Disease Control and Prevention: www.cdc.gov ? [place] [employer]: www.heart.org ? National Heart, Lung, and Blood [place]: www.nhlbi.nih.gov Summary ? Body mass index (BMI) is a number that is calculated from a person's weight and height. ? BMI may help estimate how much of a person's weight is composed of fat. BMI can help identify those who may be at higher risk for certain medical problems. ? BMI can be measured using Scottish measurements or metric measurements. ? BMI charts are used to identify whether you are underweight, normal weight, overweight, or obese. This information is not intended to replace advice given to you by your health care provider. Make sure you discuss any questions you have with your health care provider. Document Revised: 10/18/2019 Document Reviewed: 08/25/2019 [email or web address] Patient Education ? 2022 [employer] [facility] Lab Reportson 07-08-2022 Lab Reports [id number] [facility] Ambulatory Visit Summaryon 0 07-07-2022 Ambulatory Visit Summary VICKI DAWSON :1950 Visit Date:07/07/2022 Ambulatory Visit Instructions Your Diagnosis Diabetes mellitus type I Chronic kidney disease (CKD), stage III (moderate) GERD (gastroesophageal reflux disease) Gastroparesis BMI 34.0-34.9,adult Class 1 obesity due to excess calories in adult Your Care Team Attending Physician - DARLENE HATFIELD MD Primary Care Physician - DARLENE HATFIELD MD This Is Your Medications List amlodipine (amLODIPine 10 mg Tab) aspirin (aspirin 81 mg Oral EC Tab) clopidogrel (clopidogrel 75 mg Tab) insulin glargine (Lantus Solostar Pen 100 units/mL subcutaneous solution) insulin lispro (HumaLOG KwikPen 100 units/mL injectable solution) losartan (losartan 100 mg Tab) meclizine (meclizine 12.5 mg Tab) nitroglycerin (NitroStat 0.4 mg Tab) rosuvastatin (rosuvastatin 20 mg Tab) [Image Removed: STOP]Stop taking these medications amitriptyline (amitriptyline 25 mg Tab) fluoxetine (fluoxetine 10 mg oral tablet) glucagon (Glucagon Emergency Kit for Low Blood Sugar 1 mg injection) metoprolol (metoprolol 50 mg ER Tab) Procedures Performed Appendectomy, Arthroscopy, Cataracts, Cholecystectomy, Tonsillectomy and adenoidectomy. Discharge Vitals Heart Rate (Peripheral) 88 Respiratory Rate 16 Blood Pressure 120/74 Height 157.48 cm Height 62 in Weight 84.8 kg Weight 186.56 lb BMI 34.19 What to do next Scheduled Follow-Up Appointments Wednesday 4:40 PM EDT With: Mat JIMENEZ, Dewayne Zhao Where: [facility] Family [facility] Office/Clini c Noteon 07-07-2022 Family Medicine Office/Clinic Note Chief Complaint follow up and meds check HPI Staff follow up and meds check Health Maintenance: Colonoscopy: 4 years ago Dexa: nothing recent, unsure when last one was Mammo: Nov 2021 Pap: no longer does these Last Labs: A1C 3 mos ago covid: UTD questions/concerns: some sleeping issues History of Present Illness IDDM WITH EPISODES OF SEVERE HYPOGLYCEMIA WITHOUYT SYMPTOMS. GERD GASTROPARESIS hyperCHOLESTEROLEMIA SOME TROUBLE SLEEPING Review of Systems PHQ Score Initial Depression Screen Score: 1 Constitutional: no fever, no chills, no sweats, no weakness Skin: no Jaundice, no rash, no lesions, nopetechiae ENMT: no ear pain, no sore throat, no congestion, no hoarseness Respiratory: no shortness of breath, no cough, no orthopnea, no wheezing Cardiovascular: no chest pain, no palpitations, no edema Gastrointestinal: no nausea, no vomiting, no diarrhea, no GI bleeding Genitourinary: no dysuria, no hematuria, no discharge, no pain Musculoskeletal: no back pain, no trauma Neurologic: no headache, no dizziness, no numbness, no weakness Psychiatric: no sleeping problems, no irritability, no mood swings/depression. Additional ROS info: Except as noted in the above Review of Systems and in the History of Present Illness all other systems have been reviewed and are negative or noncontributory. Physical Exam Vitals & Measurements HR: 88(Peripheral) RR: 16 BP: 120/74 SpO2: 99% HT: 62 in HT: 157.48 cm WT: 84.8 kg WT: 186.56 lb BMI: 34.19 General: alert, no acute distress Skin: warm, dry Head: no trauma, normocephalic Neck: Trachea midline, no adenopathy, no tenderness Eye: normal conjunctiva, sclera clear ENMT: TM's clear, oral mucosa moist, no pharyngeal erythema or exudate Cardiovascular: regular rate and rhythm, normal peripheral perfusion Respiratory: Lungs CTA, respirations non labored Chest wall: no deformity. Gastrointestinal: soft, non distended, no tenderness, no guarding. Back: No tenderness, Normal ROM, Normal alignment. Extremities: no deformity, no trauma Neurological: oriented x 4, LOC appropriate for age, CN II-XII intact, motor strength equal & normal bilaterally, sensation equal & normal bilaterally, speech normal Psychiatric: cooperative, affect appropriate for age, normal judgement, normal psychiatric thoughts. Assessment/Plan ED. ON DX PROCESSES PROPER FU EXPLAINED. CHECK A1C TODAY. CONTINUE WITH WEIGHT LOSS DOING WELL. 1. Diabetes mellitus type I (E10.9: Type 1 diabetes mellitus without complications) Ordered: HgbA1c 2. Chronic kidney disease (CKD), stage III (moderate) (N18.30: Chronic kidney disease, stage 3 unspecified) 3. GERD (gastroesophageal reflux disease) (K21.9: Gastro-esophageal reflux disease without esophagitis) 4. Gastroparesis (K31.84: Gastroparesis) 5. BMI 34.0-34.9,adult (Z68.34: Body mass index [BMI] 34.0-34.9, adult) Ordered: Body Mass Index (BMI) documented 3008F Current tobacco non-user 1036F Depression Screening Negative 3352F Influenza immunization status assessed 1030F Most recent diastolic blood pressure <80 mm Hg 3078F Patient screen for fall risk: no falls in last year or 1 fall with no injury in last year 1101F Systolic BP <130 mm Hg (Most Recent) 3074F 6. Class 1 obesity due to excess calories in adult (E66.09: Other obesity due to excess calories) Ordered: Body Mass Index (BMI) documented 3008F Current tobacco non-user 1036F Depression Screening Negative 3352F Influenza immunization status assessed 1030F Most recent diastolic blood pressure <80 mm Hg 3078F Patient screen for fall risk: no falls in last year or 1 fall with no injury in last year 1101F Systolic BP <130 mm Hg (Most Recent) 3074F Follow-up No qualifying data available Problem List/Past Medical History Ongoing Chronic kidney disease (CKD), stage III (moderate) Diabetes mellitus type I Diabetic retinopathy Gastroparesis GERD (gastroesophageal reflux disease) Hypercholesterolemia Historical No qualifying data Procedure/Surgical History Appendectomy, Arthroscopy, Cataracts, Cholecystectomy, Tonsillectomy and adenoidectomy. Medications amLODIPine 10 mg Tab, See Instructions aspirin 81 mg Oral EC Tab, 81 mg= 1 tab(s), Oral, Daily clopidogrel 75 mg Tab, 75 mg= 1 tab(s), Oral, Daily HumaLOG KwikPen 100 units/mL injectable solution, See Instructions Lantus Solostar Pen 100 units/mL subcutaneous solution, 15 unit(s), SubCutaneous, Once a day (at bedtime) losartan 100 mg Tab, 100 mg= 1 tab(s), Oral, Daily meclizine 12.5 mg Tab, 12.5 mg= 1 tab(s), Oral, TID NitroStat 0.4 mg Tab, See Instructions rosuvastatin 20 mg Tab, 20 mg= 1 tab(s), Oral, Daily Allergies Arthrotec (Unknown) Social History Tobacco Never (less than 100 in lifetime) Tobacco Use:. Never Smokeless Tobacco Use:., 07/07/2022 Family History Family history is negative Normal [facility] Comment on above: Result Comment: Elec tronically Signed By: SELENE JIMENEZ, DARLENE Cuevas\.br\Date and Time Signed: 07/07/22 09:16 EDT GLYCOHEMOGLOBIN A1Con 2022 ADA RECOMMENDATION SEE BELOW Normal [facility] Comment on above: Result Comment: ADA RECOMMENDED LIMIT 4.0 - 6.0 ADA THERAPEUTIC TARGET < 7.0 ACTION SUGGESTED > 7.0 Performed By: #### A 1C #### [facility] [address] [address] [address] Adarsh Skinner Glucose [Mass/Vol] 146 mg/dL Normal [facility] Comment on above: Performed By: #### A 1C #### [facility] [address] [address] [address] Adarsh Skinner HbA1c (Bld) [Mass fraction] 6.7 % Critically high 4.5-6.2 [facility] Comment on above: Performed By: #### A 1C #### [facility] [address] [address] [address] Adarsh Skinner Office Visit (Cardiology)on 06-19-2022 Follow-up visit Diagnoses/Problems Assessed Diabetes (250.00) (E11.9) Hyperlipidemia (272.4) (E78.5) Benign essential hypertension (401.1) (I10) CAD (coronary artery disease) (414.00) (I25.10) PVC's (premature ventricular contractions) (427.69) (I49.3) Status post insertion of drug-eluting stent into left anterior descending (LAD) artery (V45.82) (Z95.5) Class 1 obesity with body mass index (BMI) of 34.0 to 34.9 in adult (278.00,V85.34) (E66.9,Z68.34) Never smoker Orders Benign essential hypertension, CAD (coronary artery disease), Diabetes Renew: Losartan Potassium 100 MG Oral Tablet; TAKE 1 TABLET DAILY CAD (coronary artery disease), Hyperlipidemia Renew: Aspirin 81 MG Oral Tablet Delayed Release; TAKE 1 TABLET DAILY Class 1 obesity with body mass index (BMI) of 34.0 to 34.9 in adult Healthy Weight Tips; Status:Complete - Retrospective Authorization; Done: [id number] Some eating tips that can help you lose weight.; Status:Complete - Retrospective Authorization; Done: [id number] Hyperlipidemia Renew: Rosuvastatin Calcium 20 MG Oral Tablet; TAKE 1 TABLET AT BEDTIME SocHx: Never smoker Tobacco Use Screening; Status:Complete; Done: [id number] Patient Instructions Please bring all medicines, vitamins, and herbal supplements with you when you come to the office. Prescriptions will not be filled unless you are compliant with your follow up appointments or have a follow up appointment scheduled as per instruction of your physician. Refills should be requested at the time of your visit. Follow up in 9 months - 1 year Chief Complaint NETTA DAWSON is being seen for a 6 month follow-up of. History of Present Illness Patient returns in follow-up of problems as noted. In the interim she is done well. Her coronary disease is asymptomatic and consequently we believe it to be stable. Hypertension diabetes and hyperlipidemia appear to be adequately managed. In regards to PVCs her recent Holter showed 9000 PVCs. The previous Holter 160,000 PVCs. We believe them to be potentiated and/or triggered by amitriptyline therapy and after stopping it there was a obvious dramatic reduction in the frequency of ventricular ectopy and all of her symptoms resolved. Because of this she will stay off of it. I suggested if she needs something to help sleep she try Tylenol PM. The merits of diet and weight loss were advocated. She was educated also regarding arrhythmia symptoms and encouraged to call if they arise or occur. Surgical History Problems History of Appendectomy History of Bladder surgery History of Cardiac catheterization with stent placement History of Cataract surgery History of Cholecystectomy History of Complete colonoscopy History of Exploratory laparoscopy History of Hysterectomy History of Knee surgery History of Lumpectomy History of Tonsillectomy with adenoidectomy Current Meds Medication NameInstruction amLODIPine Besylate 5 MG Oral TabletTAKE 1 TABLET DAILY. Aspirin 81 MG Oral Tablet Delayed ReleaseTAKE 1 TABLET DAILY. Biotin 1000 MCG Oral TabletTake 1 tablet daily Calcium 600 TABSTAKE 1 TABLET DAILY. Cinnamon 500 MG Oral CapsuleTAKE DIRECTED. Clopidogrel Bisulfate 75 MG Oral TabletTake 1 tablet daily [facility] Melatonin 10 MG Oral CapsuleTAKE 1 CAPSULE Bedtime HumaLOG KwikPen 100 UNIT/ML Subcutaneous Solution Pen-injectorUSE DIRECTED Januvia 100 MG Oral TabletTAKE 1 TABLET DAILY. Lantus 100 UNIT/ML Subcutaneous SolutionINJECT SUBCUTANEOUSLY DIRECTED. R-[id number] 3-35-2 MG TABSTake 1 tablet daily Losartan Potassium 100 MG Oral TabletTAKE 1 TABLET DAILY. Lutein-Zeaxanthin 25-5 MG Oral CapsuleTAKE 1 CAPSULE Daily Meclizine HCl - 12.5 MG Oral TabletTAKE 1 TABLET 3 TIMES DAILY NEEDED. Multi Vitamin TABSTAKE 1 TABLET DAILY. Nitroglycerin 0.4 MG Sublingual Tablet SublingualPLACE 1 TABLET UNDER THE TONGUE EVERY 5 MINUTES FOR UP TO 3 DOSES NEEDED FOR CHEST PAIN.CALL 911 IF PAIN PERSISTS. Rosuvastatin Calcium 20 MG Oral TabletTAKE 1 TABLET AT BEDTIME Allergies Medication No Known Drug Allergies Recorded By: Jimy Mueller; 12/11/2020 8:48:04 AM Social History Problems Caffeine use (V49.89) (Z78.9) Occas coffee Never smoker No alcohol use No illicit drug use Review of Systems Constitutional: not feeling tired. Eyes: no eyesight problems. ENT: no hearing loss and no nosebleeds. Cardiovascular: no intermittent leg claudication and as noted in HPI. Respiratory: no chronic cough and no shortness of breath. Gastrointestinal: no change in bowel habits and no blood in stools. Genitourinary: no urinary frequency. Skin: no skin rashes. Neurological: no seizures and no frequent falls. Psychiatric: no depression and not suicidal. All other systems have been reviewed and are negative for complaint. Vitals Vital Signs Recorded: [id number] 10:14AM Heart Rate66, R Radial Mbxwsruo782, RUE, Sitting Dlkyzyfxy72, RUE, Sitting Height5 ft 2 in (more content not included)... Normal [employer] Tobacco Screening.on 023 Adult depression screening assessment Yes [facility] Brenda faria 600 DO Work Phone: [phone] Adult depression screening assessment No [facility] Brenda Mahmood DO Work Phone: Adult depression screening assessment Mild (5-9) [facility] Brenda faria 600 DO Work Phone: [phone] Fall risk assessment a) No falls within the last year [facility] Brenda faria 600 DO Work Phone: Tobacco use status CP b) No [facility] Brenda faria 600 DO Work Phone: Tobacco Screening. 1-Several days [facility] Brenda faria 600 DO Work Phone: Tobacco Screening. 3-Nearly every day [facility] Brenda Mahmood DO Work Phone: Tobacco Screening. 2-More than half the days [facility] Brenda faria 600 DO Work Phone: Tobacco Screening. 0-Not at all [facility] Brenda faria 600 DO Work Phone: Tobacco Screening. Somewhat Difficult [facility] Brenda faria 600 DO Work Phone: RAD - Ultrasound Reporton RAD - Ultrasound Report [id number] 0CD:127 Normal [facility] Retail - Clinical Noteon Retail - Clinical Note [id number] 0CD:127 Normal [facility] Consultation Noteon 04-29-19 Consultation Note [id number] 0CD:127 Normal [facility] GLYCOHEMOGLOBIN A1Con 2022 ADA RECOMMENDATION SEE BELOW Normal [facility] Comment on above: Result Comment: ADA RECOMMENDED LIMIT 4.0 - 6.0 ADA THERAPEUTIC TARGET < 7.0 ACTION SUGGESTED > 7.0 Performed By: #### A 1C #### [facility] [address] [place], [place] [address] Dr. Adarsh Skinner Glucose [Mass/Vol] 148 mg/dL Normal [facility] Comment on above: Performed By: #### A 1C #### [facility] [address] [place], [place] [address] Dr. Adarsh Skinner HbA1c (Bld) [Mass fraction] 6.8 % Critically high 4.5-6.2 [facility] Comment on above: Performed By: #### A 1C #### [facility] [address] [place], [place] [address] Dr. Adarsh Skinner Cardiovas Arrhythmia Result son 02-23-2022 Cardiovasc Arrhythmia Results Reason For Visit Reason for Visit: Holter Monitor: NETTA is here for the application of a 24 hour Holter monitor. Ordering Physician: Dr. Zak Nguyen MD Diagnosis: pvc [facility] equipment agreement signed. NETTA understands monitor is to be returned on: 02/24/22 Monitor number [id number] applied. Holter monitor returned and downloaded. Holter monitor printed and placed on Dr. Zak Nguyen MD desk to dictate. Diagnosis/Problems Assessed PVC's (premature ventricular contractions) (427.69) (I49.3) Patient Discussion/Summary Patient underwent 24-hour Holter monitoring for complaints of shortness of breath, palpitation, and PVCs. The following observations are made: 1. Rhythm is sinus with heart rates ranging between 57 and 120 bpm. The average heart rate is 79 bpm. Longest pause is 1.3 seconds. 2. There were 9438 ventricular ectopic beats noted. There were predominantly isolated beats. There were 1887 couplets and 75 triplets. There were 4 runs of ventricular tachyarrhythmia up to 4 beats in length at rates up to 162 bpm. 3. There were 11 isolated PACs. 4. There were no complaints or symptoms reported in the diary. Future Appointments Date/TimeProviderSpeci altySite 06/19/2022 10:10 Zak Moe [id number] 600 DO Signatures Electronically signed by : Fanny Zelaya L.P.N.; Feb 24 2022 11:03AM EST (Author) Electronically signed by : Zak Nguyen MD; Mar 05 2022 11:58AM EST (Author) Normal [employer] Office Visit (Cardiology)on 01-19-2022 Follow-up visit Diagnoses/Problems Assessed PVC's (premature ventricular contractions) (427.69) (I49.3) Hyperlipidemia (272.4) (E78.5) CAD (coronary artery disease) (414.00) (I25.10) Benign essential hypertension (401.1) (I10) Status post insertion of drug-eluting stent into left anterior descending (LAD) artery (V45.82) (Z95.5) Diabetes (250.00) (E11.9) Never smoker Class 2 obesity with body mass index (BMI) of 35.0 to 35.9 in adult (278.00,V85.35) (E66.9,Z68.35) Orders Class 2 obesity with body mass index (BMI) of 35.0 to 35.9 in adult Healthy Weight Tips; Status:Complete; Done: [id number] Some eating tips that can help you lose weight.; Status:Complete; Done: [id number] PVC's (premature ventricular contractions) IO Holter Monitor up to 48 Hrs; Status:Complete; Done: 06Eft0647 SocHx: Never smoker Tobacco Use Screening; Status:Complete; Done: [id number] Patient Instructions Please bring all medicines, vitamins, and herbal supplements with you when you come to the office. Prescriptions will not be filled unless you are compliant with your follow up appointments or have a follow up appointment scheduled as per instruction of your physician. Refills should be requested at the time of your visit. 24 hour holter monitor. Follow up in 6 months Chief Complaint NETTA DAWSON is being seen for a 4-6 weeks week follow-up of. History of Present Illness Patient returns again in follow-up of frequent PVCs. As before auscultation and palpation demonstrates a completely regular rhythm and we find this confusing and somewhat paradoxical. I am still suspicious that there may have been an environmental trigger such as beta-blockers, amitriptyline, or possibly a resolving myocarditis from a viral infection. Nonetheless I suggested to her that now that she is off amitriptyline, doing okay, that she not resume this medicine or the metoprolol. We discussed, as before, repeating another Holter monitor to ascertain whether the arrhythmia has resolved and she and her are very interested in doing this to exclude other sim unrecognized frequent ventricular arrhythmias that may escape detection during this brief office patient encounter. Because of this we will do a Holter monitor to evaluate her PVCs and/or frequent ventricular arrhythmia. Review of her other symptoms associate with heart disease demonstrates she has no symptoms of coronary disease superseded her original diagnosis and subsequent PTCA. Lipids blood pressure also appear to be adequately addressed. As before we did advocate the merits of diet and weight loss. Surgical History Problems History of Appendectomy History of Bladder surgery History of Cardiac catheterization with stent placement History of Cataract surgery History of Cholecystectomy History of Complete colonoscopy History of Exploratory laparoscopy History of Hysterectomy History of Knee surgery History of Lumpectomy History of Tonsillectomy with adenoidectomy Current Meds Medication NameInstruction amLODIPine Besylate 5 MG Oral TabletTAKE 1 TABLET DAILY. Aspirin 81 MG Oral Tablet Delayed ReleaseTAKE 1 TABLET DAILY. Biotin 1000 MCG Oral TabletTake 1 tablet daily Calcium 600 TABSTAKE 1 TABLET DAILY. Cinnamon 500 MG Oral CapsuleTAKE DIRECTED. Clopidogrel Bisulfate 75 MG Oral TabletTake 1 tablet daily [facility] Melatonin 10 MG Oral CapsuleTAKE 1 CAPSULE Bedtime HumaLOG KwikPen 100 UNIT/ML Subcutaneous Solution Pen-injectorUSE DIRECTED Januvia 100 MG Oral TabletTAKE 1 TABLET DAILY. Lantus 100 UNIT/ML Subcutaneous SolutionINJECT SUBCUTANEOUSLY DIRECTED. Z-Hbqywvoblqnp-N8-B12 3-35-2 MG Oral TabletTake 1 tablet daily Losartan Potassium 100 MG Oral TabletTAKE 1 TABLET DAILY. Lutein-Zeaxanthin 25-5 MG Oral CapsuleTAKE 1 CAPSULE Daily Meclizine HCl - 12.5 MG Oral TabletTAKE 1 TABLET 3 TIMES DAILY NEEDED. Multi Vitamin TABSTAKE 1 TABLET DAILY. Nitroglycerin 0.4 MG Sublingual Tablet SublingualPLACE 1 TABLET UNDER THE TONGUE EVERY 5 MINUTES FOR UP TO 3 DOSES NEEDED FOR CHEST PAIN.CALL 911 IF PAIN PERSISTS. Rosuvastatin Calcium 20 MG Oral TabletTAKE 1 TABLET AT BEDTIME Patient did not bring medication list or bottles. Updated verbally with patient Allergies Medication No Known Drug Allergies Recorded By: Jimy Mueller; 12/11/2020 8:48:04 AM Social History Problems Caffeine use (V49.89) (Z78.9) Occas coffee Never smoker No alcohol use No illicit drug use Review of Systems Constitutional: not feeling tired. Eyes: no eyesight problems. ENT: no hearing loss and no nosebleeds. Cardiovascular: no intermittent leg claudication and as noted in HPI. Respiratory: no chronic cough and no shortness of breath. Gastrointestinal: no change in bowel habits and no blood in stools. Genitourinary: no urinary frequency. Skin: no skin rashes. Neurological: no seizures and no frequent falls. Psychiatric: no depression and not suicidal. All other systems have been (more content not included)... Normal [employer] Tobacco Screening.on 022 Fall risk assessment a) No falls within the last year [facility] 600 DO Work Phone: Tobacco use status CP b) No [facility] [employer] 600 DO Work Phone: CBC AUTO DIFFon 01-07-2022 BASO # 0.1 103/ul Normal 0.0-0.1 [facility] Comment on above: Performed By: #### C BC #### [facility] [address] [place], [place] [address] Dr. Adarsh Skinner Basophils/100 WBC (Bld) 0.7 % Normal 0.2-2.0 [facility] Comment on above: Performed By: #### C BC #### [facility] [address] [place], [place] [address] Dr. Adarsh Skinner EO # 0.2 103/ul Normal 0.0-0.7 [facility] Comment on above: Performed By: #### C BC #### [facility] [address] [place] [address] Dr. Adarsh Skinner Eosinophils/100 WBC (Bld) 2.0 % Normal 0.9-7.0 [facility] Comment on above: Performed By: #### C BC #### [facility] [address] [place] [address] Dr. Adarsh Skinner Erythrocyte distribution width (RBC) [Ratio] 15.9 % Critically high 11.0-15.0 [facility] Comment on above: Performed By: #### C BC #### [facility] [address] [place] [address] Dr. Adarsh Skinner Hematocrit (Bld) [Volume fraction] 41.7 % Normal 36.0-48.0 [facility] Comment on above: Performed By: #### C BC #### [facility] [address] [place] [address] Dr. Adarsh Skinner Hemoglobin (Bld) [Mass/Vol] 13.2 g/dL Normal 12.0-16.0 [facility] Comment on above: Performed By: #### C BC #### [facility] [address] [place] [address] Dr. Adarsh Skinner IG # 0.03 10e3/ul Normal 0.00-0.03 [facility] Comment on above: Performed By: #### C BC #### [facility] [address] [place] [address] Dr. Adarsh Skinner IG % 0.3 % Normal 0.0-0.5 [facility] Comment on above: Performed By: #### C BC #### [facility] [address] [place] [address] Dr. Adarsh Skinner LYMPH # 1.9 103/ul Normal 1.2-3.8 [facility] Comment on above: Performed By: #### C BC #### [facility] [address] [place] [address] Dr. Adarsh Skinner Lymphocytes/100 WBC (Bld) 20.6 % Normal 20.5-60.0 [facility] Comment on above: Performed By: #### C BC #### [facility] [address] [place] [address] Dr. Adarsh Skinner MANUAL DIFF REQ NO Normal [facility] Comment on above: Performed By: #### C BC #### [facility] [address] [place] [address] Dr. Adarsh Skinner MCH (RBC) [Entitic mass] 26.8 pg Normal 26.7-34.0 [facility] Comment on above: Performed By: #### C BC #### [facility] [address] [place] [address] Dr. Adarsh Skinner MCHC (RBC) [Mass/Vol] 31.7 g/dL Normal 29.9-35.2 [facility] Comment on above: Performed By: #### C BC #### [facility] [address] [place] [address] Dr. Adarsh Skinner MCV (RBC) [Entitic vol] 84.8 fL Normal 81.0-99.0 [facility] Comment on above: Performed By: #### C BC #### [facility] [address] [place] [address] Dr. Adarsh Skinner MONO # 0.7 103/ul Normal 0.3-0.8 [facility] Comment on above: Performed By: #### C BC #### [facility] [address] [place] [address] Dr. Adarsh Skinner Monocytes/100 WBC (Bld) 7.2 % Normal 1.7-12.0 [facility] Comment on above: Performed By: #### C BC #### [facility] [address] [place] [address] Dr. Adarsh Skinner NEUT # 6.4 103/ul Normal 1.4-6.5 [facility] Comment on above: Performed By: #### C BC #### [facility] [address] [place] [address] Dr. Adarsh Skinner Neutrophils/100 WBC (Bld) 69.2 % Normal 43.0-75.0 [facility] Comment on above: Performed By: #### C BC #### [facility] [address] [place] [address] Dr. Adarsh Skinner Platelet mean volume (Bld) [Entitic vol] 12.2 fL Normal 9.5-13.5 [facility] Comment on above: Performed By: #### C BC #### [facility] [address] [place] [address] [address] Adarsh Skinner PLT 217 103/ul Normal 150-450 [facility] Comment on above: Performed By: #### C BC #### [facility] [address] [place] [address] [address] Adarsh Skinner RBC 4.92 106/ul Normal 4.20-5.40 [facility] Comment on above: Performed By: #### C BC #### [facility] [address] [place] [address] [address] Adarsh Skinner WBC 9.2 103/ul Normal 4.0-11.0 [facility] Comment on above: Performed By: #### C BC #### [facility] [address] [place] [address] [address] Adarsh Skinner GLYCOHEMOGLOBIN A1Con 2021 ADA RECOMMENDATION SEE BELOW Normal [facility] Comment on above: Result Comment: ADA RECOMMENDED LIMIT 4.0 - 6.0 ADA THERAPEUTIC TARGET < 7.0 ACTION SUGGESTED > 7.0 Performed By: #### A 1C ####[facility] [id number] [place] [address]Dr. Adarsh Skinner Glucose [Mass/Vol] 143 mg/dL Normal [facility] Comment on above: Performed By: #### A 1C ####[facility] [id number] [place] [address]Dr. Adarsh Skinner HbA1c (Bld) [Mass fraction] 6.6 % Critically high 4.5-6.2 [facility] Comment on above: Performed By: #### A 1C ####[facility] [id number] [place] [address]Dr. Adarsh Skinner LIPID PROFILEon 01-07-2022 CHOL-HDL RATIO NORM SEE BELOW Normal [facility] Comment on above: Result Comment: 3.3 - 4.4 LOW RISK 4.4 - 7.1 AVERAGE RISK 7.1 - 11.0 MODERATE RISK >11.0 HIGH RISK Performed By: #### C MP, LIPID #### [facility] [address] [place] [address] [address] Adarsh Skinner Cholesterol [Mass/Vol] 121 mg/dL Normal <=200 [facility] Comment on above: Performed By: #### C MP, LIPID #### [facility] [address] [place] [address] Dr. Adarsh Skinner Cholesterol in HDL [Mass/Vol] 55 mg/dL Normal 40-60 [facility] Comment on above: Performed By: #### C MP, LIPID #### [facility] [address] [place] [address] Dr. Adarsh Skinner Cholesterol in LDL [Mass/Vol] 50.8 mg/dL Normal [facility] Comment on above: Performed By: #### C MP, LIPID #### [facility] [address] [place] [address] Dr. Adarsh Skinner Cholesterol.total/Ch olesterol in HDL [Mass ratio] 2.2 {ratio} Normal [facility] Comment on above: Performed By: #### C MP, LIPID #### [facility] [address] [place] [address] Dr. Adarsh Skinner HDL NORMAL > or = 60 mg/dl - LO W CARDIOVASCULAR RISK <40 mg/dl - HIGH CARDIOVASCULAR RISK Normal [facility] Comment on above: Performed By: #### C MP, LIPID #### [facility] [address] [place] [address] Dr. Adarsh Skinner LDL CALC NORMAL SEE BELOW Normal [facility] Comment on above: Result Comment: <100 mg/dl OPTIMAL 100 - 129 mg/dl NEAR OR ABOVE OPTIMAL 130 - 159 mg/dl BORDERLINE HIGH 160 - 189 mg/dl HIGH >190 mg/dl VERY HIGH Performed By: #### C MP, LIPID #### [facility] [address] [place] [address] Dr. Adarsh Skinner Triglyceride [Mass/Vol] 76 mg/dL Normal <=150 [facility] Comment on above: Performed By: #### C MP, LIPID #### [facility] [address] [place] [address] Dr. Adarsh Skinner VLDL CALC 15.2 mg/dL Normal [facility] Comment on above: Performed By: #### C MP, LIPID #### [facility] [address] [place] [address] Dr. Adarsh Skinner PROF 14(COMP METB)on 022 Albumin [Mass/Vol] 3.6 g/dL Normal 3.4-5.0 [facility] Comment on above: Performed By: #### C MP, LIPID #### [facility] [address] [place] [address] Dr. Adarsh Skinner Albumin/Globulin [Mass ratio] 1.1 {ratio} Normal [facility] Comment on above: Performed By: #### C MP, LIPID #### [facility] [address] [place] [address] Dr. Adarsh Skinner ALP [Catalytic activity/Vol] 57 U/L Normal 46-116 [facility] Comment on above: Performed By: #### C MP, LIPID #### [facility] [address] [place] [address] Dr. Adarsh Skinner ALT [Catalytic activity/Vol] 23 U/L Normal 14-59 [facility] Comment on above: Performed By: #### C MP, LIPID #### [facility] [address] [place] [address] Dr. Adarsh Skinner Anion gap [Moles/Vol] 14.7 mmol/L Normal [facility] Comment on above: Performed By: #### C MP, LIPID #### [facility] [address] [place] [address] Dr. Adarsh Skinner AST [Catalytic activity/Vol] 29 U/L Normal 15-37 [facility] Comment on above: Performed By: #### C MP, LIPID #### [facility] [address] [place] [address] Dr. Adarsh Skinner Bilirubin [Mass/Vol] 0.8 mg/dL Normal 0.2-1.0 [facility] Comment on above: Performed By: #### C MP, LIPID #### [facility] [address] [place] [address] [address] Adarsh Skinner Calcium [Mass/Vol] 10.2 mg/dL Critically high 8.5-10.1 [facility] Comment on above: Performed By: #### C MP, LIPID #### [facility] [address] [place] [address] [address] Adarsh Skinner Chloride [Moles/Vol] 104 mmol/L Normal 98-107 [facility] Comment on above: Performed By: #### C MP, LIPID #### [facility] [address] [place] [address] Dr. Adarsh Skinner CO2 [Moles/Vol] 25.0 mmol/L Normal 21.0-32.0 [facility] Comment on above: Performed By: #### C MP, LIPID #### [facility] [address] [place] [address] Dr. Adarsh Skinner Creatinine [Mass/Vol] 1.32 mg/dL Critically high 0.55-1.02 [facility] Comment on above: Performed By: #### C MP, LIPID #### [facility] [address] [place] [address] Dr. Adarsh Skinner EGFR-AF S[place]FR[place] 48 mL/min/1.73m2 Critically low >=60 [facility] Comment on above: Performed By: #### C MP, LIPID #### [facility] [address] [place] [address] Dr. Adarsh Skinner EGFR-NON AF [place] 39 mL/min/1.73m2 Critically low >=60 [facility] Comment on above: Performed By: #### C MP, LIPID #### [facility] [address] [place] [address] Dr. Adarsh Skinner Globulin (S) [Mass/Vol] 3.4 g/dL Normal [facility] Comment on above: Performed By: #### C MP, LIPID #### [facility] [address] [place] [address] Dr. Adarsh Skinner Glucose [Mass/Vol] 177 mg/dL Critically high 74-106 [facility] Comment on above: Performed By: #### C MP, LIPID #### [facility] [address] [address] [address] Adarsh Skinner Potassium [Moles/Vol] 4.7 mmol/L Normal 3.5-5.1 [facility] Comment on above: Performed By: #### C MP, LIPID #### [facility] [address] [address] [address] Adarsh Skinner Protein [Mass/Vol] 7.0 g/dL Normal 6.4-8.2 [facility] Comment on above: Performed By: #### C MP, LIPID #### [facility] [address] [place] [address] [address] Adarsh Skinner Sodium [Moles/Vol] 139 mmol/L Normal 136-145 [facility] Comment on above: Performed By: #### C MP, LIPID #### [facility] [address] [place] [address] [address] Adarsh Skinner Urea nitrogen [Mass/Vol] 20.0 mg/dL Critically high 7.0-18.0 [facility] Comment on above: Performed By: #### C MP, LIPID #### [facility] [address] [address] [address] Adarsh Skinner Urea nitrogen/Creatinine [Mass ratio] 15.2 mg/mg Normal [facility] Comment on above: Performed By: #### C MP, LIPID #### [facility] [address] [address] [address] Adarsh Skinner Tobacco Screening.on 022 Fall risk assessment a) No falls within the last year [facility] k 600 DO Work Phone: Tobacco use status CPHS b) No [facility] k 600 DO Work Phone: MG MAMM SCREEN 3D GILSON CADon 12-01-2021 MG MAMM SCREEN 3D GILSON CAD Patient: NETTA DAWSON Exam Date: 12/01/2021 : 1950 Gender:F Ordering : DR DARLENE HATFIELD . Admission #: [id number] Family : Order #: [id number] CLICK HERE TO VIEW EXAM RADIOLOGY REPORT PROCEDURE: MAMMOGRAM SCREENING 3D BILATERAL CAD COMPARISON: MG MAMM SCREEN GILSON W CAD, 11/16/2019. MG MAMM SCREEN 3D GILSON CAD, 11/28/2020. INDICATIONS: Screening mammography Calculator Name NCI Breast Cancer Risk Assessment Tool 5 Year Breast Cancer Risk 1.50% Lifetime Breast Cancer Risk 3.70% Personal Breast Cancer No Personal Ovarian Cancer No Treatments None Family Cancers None LOCATION: [facility] BREAST COMPOSITION: Scattered areas fibroglandular density. FINDINGS: DIAGNOSTIC CATEGORY 2--BENIGN FINDING. NO CHANGE FROM COMPARISON. Scattered benign-appearing calcifications are present. Scattered benign-appearing lymph nodes are present. RIGHT BREAST: No significant suspicious finding. LEFT BREAST: No significant suspicious finding. RECOMMENDATIONS: ROUTINE MAMMOGRAM AND CLINICAL EVALUATION IN 12 MONTHS. PLEASE NOTE: A NORMAL MAMMOGRAM DOES NOT EXCLUDE THE POSSIBILITY OF BREAST CANCER. A CLINICALLY SUSPICIOUS PALPABLE LUMP SHOULD BE BIOPSIED. Dictated by: Javad Kendall MD on 12/01/2021 at 11:20 Approved by: Javad Kendall MD on 12/01/2021 at 11:22 Normal [facility] GLYCOHEMOGLOBIN A1Con 2021 ADA RECOMMENDATION SEE BELOW Normal [facility] Comment on above: Result Comment: ADA RECOMMENDED LIMIT 4.0 - 6.0 ADA THERAPEUTIC TARGET < 7.0 ACTION SUGGESTED > 7.0 Performed By: #### A 1C #### [facility] [address] [place] [address] Dr. Adarsh Skinner Glucose [Mass/Vol] 154 mg/dL Normal [facility] Comment on above: Performed By: #### A 1C #### [facility] [address] [place] [address] Dr. Adarsh Skinner HbA1c (Bld) [Mass fraction] 7.0 % Critically high 4.5-6.2 [facility] Comment on above: Performed By: #### A 1C #### [facility] [address] [place] [address] Dr. Adarsh Skinner Tobacco Screening.on 022 Fall risk assessment a) No falls within the last year [facility] 600 DO Work Phone: Tobacco use status [facility]PH[facility] b) No [facility] 600 DO Work Phone: MICROALBUMIN, RAND URon 07-0 mALB 17.9 mg/L Normal <=30.0 [facility] Comment on above: Performed By: #### M ALBR #### [facility] [address] [address] [address] Adarsh Skinner PROF CHEM 8 (BAS METB)on Anion gap [Moles/Vol] 20.0 mmol/L Normal [facility] Comment on above: Performed By: #### B MP #### [facility] [address] [address] [address] Adarsh Skinner Calcium [Mass/Vol] 9.6 mg/dL Normal 8.5-10.1 [facility] Comment on above: Performed By: #### B MP #### [facility] [address] [place] [address] Dr. Adarsh Skinner Chloride [Moles/Vol] 106 mmol/L Normal 98-107 [facility] Comment on above: Performed By: #### B MP #### [facility] [address] [address] [address] Adarsh Skinner CO2 [Moles/Vol] 17.4 mmol/L Critically low 21.0-32.0 [facility] Comment on above: Performed By: #### B MP #### [facility] [address] [address] [address] Adarsh Skinner Creatinine [Mass/Vol] 1.28 mg/dL Critically high 0.55-1.02 [facility] Comment on above: Performed By: #### B MP #### [facility] [address] [address] [address] Adarsh Skinner EGFR-AF SOUTH [place]FR[place] 50 mL/min/1.73m2 Critically low >=60 [facility] Comment on above: Performed By: #### B MP #### [facility] [address] [address] [address] Adarsh Skinner EGFR-NON AF [place]FR[place] 41 mL/min/1.73m2 Critically low >=60 [facility] Comment on above: Performed By: #### B MP #### [facility] [address] [address] [address] Adarsh Skinner Glucose [Mass/Vol] 50 mg/dL Critically low 74-106 [facility] Comment on above: Performed By: #### B MP #### [facility] [address] [address] [address] Adarsh Skinner Potassium [Moles/Vol] 4.3 mmol/L Normal 3.5-5.1 [facility] Comment on above: Performed By: #### B MP #### [facility] [address] [address] [address] Adarsh Skinner Sodium [Moles/Vol] 141 mmol/L Normal 136-145 [facility] Comment on above: Performed By: #### B MP #### [facility] [address] [address] [address] Adarsh Skinner Urea nitrogen [Mass/Vol] 17.0 mg/dL Normal 7.0-18.0 [facility] Comment on above: Performed By: #### B MP #### [facility] [address] [address] [address] Adarsh Skinner Urea nitrogen/Creatinine [Mass ratio] 13.2 mg/mg Normal [facility] Comment on above: Performed By: #### B MP #### [facility] [address] [address] [address] Adarsh Skinner PHQ-2 VITALSon 07-22-2021 Adult depression screening assessment Yes [facility] [address] DO Work Phone: [phone] Adult depression screening assessment No [facility] [address] DO Work Phone: [phone] PHQ-2 VITALS 0-Not at all [facility] 250 DO Work Phone: [phone] PHQ-2 VITALS 1-Several days [facility] 250 DO Work Phone: [phone] PHQ-2 VITALS 3-Nearly every day [facility] 250 DO Work Phone: [phone] PHQ-2 VITALS Not difficult at all [facility] Pe[facility]@[employer] [facility]u 250 DO Work Phone: Tobacco Screening.on 022 Fall risk assessment b) One or more fall s in the last year [facility] [employer] [facility] 250 DO Work Phone: Tobacco use status CPHS b) No [facility] [place] 250 DO Work Phone: NM MYOCARDIAL PERFUSION MULT I SPECTon 07-02-2021 NM MYOCARDIAL PERFUSION MULTI SPECT Patient Info Name: NETTA DAWSON Age: 71 years : 1950 Gender: Female Ht: 157 cm Wt: 98 kg BSA: 2.13 m2 Exam Date: 07/02/2021 12:11 PM Patient Status: Inpatient Exam Type: NM MYOCARDIAL PERFUSION MULTI SPECT Study Info Indications - CAD screening, intermediate CAD risk, not treadmill candidate Attending Physician: Sierra Jc [id number] Primary Nurse: Violet Hope RN Secondary Nurse: Emily Sullivan RN Supervising Stress Physician: Shaheed Jc MD BMI: 39.69 kg/m2 Summary 1. Resting SPECT images and Stress Gated SPECT images obtained post Sestamibi injection. 2. Normal SPECT myocardial perfusion imaging study. No inducible ischemia identified. Normal left ventricular systolic function, with calculated ejection fraction 86 %. Normal TID = 1.2. 3. Gated SPECT imaging reveals normal myocardial wall motion. 4. Gated SPECT imaging reveals normal myocardial wall thickening with stress. 5. Non-diagnostic ECG response due to resting abnormalities. 6. Overall low-risk study based on SCAI criteria (<1% predicted annual cardiac mortality). Stress ECG Details Protocol: LEXISCAN Rest HR: 93 bpm Peak HR: 103 bpm Rest Sys BP: 125 mmHg Peak Sys BP: 125 mmHg Max Pred HR: 147 bpm % Max Pred HR: 70 % Target HR: 125 bpm Max RPP: 12,875 bpm*mmHg Termination Reason: Per Protocol Cardiac Symptoms: Shortness of breath Total Time: 4 min : 0 sec Rest Blankenship BP: 61 mmHg Peak Blankenship BP: 61 mmHg Total Dose: 0.4 mg Resting ECG Sinus rhythm with frequent and consecutive premature ventricular complexes and fusion complexes. Possible Left Atrial enlargement. Incomplete Right Bundle Branch Block. Left anterior fascicular block. Left ventricular hypertrophy with repolarization abnormality. Prolonged QT. Possible Lateral infarct, age undetermined. Stress ECG Non-diagnostic ECG response due to resting abnormalities. Arrhythmias Frequent PVCs. Frequent PACs. Exercise Tolerance Tolerated medication infusion. LEXISCAN. Radiopharmaceutical: Tc-99m Sestamibi Camera Used: [email or web address] Radiopharmaceutical: Tc-99m Sestamibi Camera Used: [email or web address] Image Protocol Protocol: Rest/Stress 1 Day Rest Radiopharmaceutical Dose: 10.7 mCi Patient Position: supine Stress Radiopharmaceutical Dose: 30.8 mCi Imaging Date AND Time: 07/02/2021 2:18 PM Patient Position: supine Injection Date AND Time: 07/02/2021 9:40 AM Injection Date AND Time: 07/02/2021 12:45 PM Procedure(s): Resting SPECT images and Stress Gated SPECT images obtained post Sestamibi injection. SPECT Results Perfusion Findings Normal left ventricular size. The stress/rest left ventricular cavity ratio (Transient Ischemic Dilatation ratio) = 1.21 . SPECT images demonstrate homogeneous tracer distribution throughout the myocardium. Study Limitations: Breast / Chest Attenuation, Patient Motion Artifact Summed Difference Score: 0 Summed Stress Score: 0 Summed Rest Score: 1 Perfusion Quantitative Results Stress Extent Global Stress Extent: 1 % Rest Extent Global Rest Extent: 0 % Ischemia Extent Global Ischemia Extent: 1 % Functional Results ---- Name Value Normal ---- Stress ---- Stress LV Ejection Fraction 86 % 55-70 Stress LV End Systolic Volume 11.00 ml Nuclear Stress Cardiac Output 5.90 l/min Stress LV End Diastolic Volume 78.00 ml Transient Ischemic Dilatation 1.21 Nuclear Stress Myocardial Mass 126.00 g Functional Results ---- Name Value Normal ---- Rest ---- Resting LV Ejection Fraction 78 % 55-70 Resting LV End Systolic Volume 16.00 ml Nuclear Rest Myocardial Mass 110.00 g Resting LV End Diastolic Volume 72.00 ml Nuclear Rest Cardiac Output 4.60 l/min Functional Findings Overall left ventricular systolic function was normal without regional wall motion abnormalities. Gated SPECT imaging reveals normal myocardial wall thickening. Post stress left ventricular ejection fraction is normal, 86 %. Left ventricular cavity size is normal. Gated SPECT imaging reveals normal myocardial wall motion. All other levy appear normal at rest. Gated SPECT imaging reveals normal myocardial wall thickening with stress. Resting left ventricular ejection fraction is hyperdynamic , 78 %. Post stress left ventricular ejection fraction is hyperdynamic, 86 %. Report Signatures MPI SPECT Finalized by Shaheed Jc MD on 07/02/2021 03:34 PM Stress Finalized by Shaheed Jc MD on 07/02/2021 03:34 PM Dict (more content not included)... Normal [facility] Comment on above: Order Comment: Injur y/Trauma or Illness?:Illness/Other How long have you had these symptoms (acute/chronic)?:Acute Reason for exam?:CAD screening Type of Exam?:Ongoing Additional signs and symptoms?:no ECHOCARDIOGRAM COMPLETEon ECHOCARDIOGRAM COMPLETE Patient Info Name: NETTA DAWSON Age: 71 years : 1950 Gender: Female Ht: 157 cm Wt: 64 kg BSA: 1.68 m2 BP: 160 / 79 mmHg Exam Date: 07/01/2021 10:16 AM Patient Status: Inpatient Child Welfare Caseworker: Laura Shaw RDMS, RVT Exam Type: ECHOCARDIOGRAM COMPLETE Study Info Indications - Other - Palpitations Attending Physician: [facility] FAYE Referring Physician: STAN Lechuga; [id number] BMI: 25.61 kg/m2 Summary 1. Normal cardiac chamber sizes. 2. Mild left ventricular concentric hypertrophy. 3. Left ventricular systolic function is normal, with ejection fraction estimated at 58%. 4. Left ventricular segmental wall motion is normal. 5. There is grade 3 diastolic dysfunction, consistent with markedly elevated left atrial pressure (restrictive LV filling). 6. There is moderate mitral valve regurgitation. 7. There is no pericardial effusion. Procedure(s): Complete two-dimensional, color flow and Doppler transthoracic echocardiogram is performed. Left Ventricle Left ventricular chamber dimension is normal. Left ventricular segmental wall motion is normal. Mild left ventricular concentric hypertrophy. Left ventricular systolic function is normal, with ejection fraction estimated at 58%. There is grade 3 diastolic dysfunction, consistent with markedly elevated left atrial pressure (restrictive LV filling). Right Ventricle Right ventricular chamber dimension is normal. Right ventricular systolic function is normal. Ventricular Septum Intact interventricular septum visualized by 2D imaging. Left Atria Left atrial chamber dimension is normal. Right Atria Right atrial chamber dimension is normal. Atrial Septum Intact interatrial septum visualized by 2D imaging. Aortic Valve The aortic valve is trileaflet. There is mild aortic valve sclerosis. There is no aortic valve stenosis with a peak velocity of 1.3 m/s, mean gradient of 3 mmHg, and aortic valve area of 1.8 cm2. There is no aortic valve regurgitation. Pulmonic Valve The pulmonic valve is normal. There is no pulmonic valve stenosis. There is trace pulmonic regurgitation. Mitral Valve The mitral valve has calcified leaflets and calcified annulus. There is no mitral valve stenosis. There is moderate mitral valve regurgitation. Tricuspid Valve The tricuspid valve leaflets are normal. There is no significant tricuspid valve stenosis. There is moderate tricuspid valve regurgitation. There is pulmonary hypertension, estimated right ventricle systolic pressure is 52 mmHg. Pericardium/Pleural The pericardium appears normal. There is no pericardial effusion. Inferior Vena Cava Normal inferior vena cava with >50% collapse upon inspiration consistent with normal right atrial pressure. Aorta The aortic measurements are indexed to age and body surface area. Normal aortic root appearance and dimension. Left Ventricular Outflow Tract ---- Name Value Normal ---- LVOT 2D ---- LVOT Diameter 1.8 cm LVOT Doppler ---- LVOT Peak Velocity 0.8 m/s LVOT Peak Gradient 3 mmHg LVOT Mean Gradient 2 mmHg LVOT VTI 23 cm LVOT VTI/AV VTI Ratio 0.7 LVOT Stroke Volume 57 ml LVOT Stroke Index 33.94 ml/m2 Pulmonic Valve ---- Name Value Normal ---- PV Doppler ---- PV Peak Velocity 0.77 m/s PV Peak Gradient 2 mmHg Mitral Valve ---- Name Value Normal ---- MV Doppler ---- MV Decel [place] 593 cm/s2 MV PHT 39 ms MV Area (PHT) 5.7 cm2 4.0-5.0 MV Regurgitation Doppler ---- MR Peak Gradient 138 mmHg MV Diastolic Function ---- MV E Peak Velocity 0.79 m/s MV A Peak Velocity 0.88 m/s MV E/A 0.9 MV Decel Time 133 ms MV Annular TDI ---- MV Septal e' Velocity 4.6 cm/s >=8.0 MV E/e' (Septal) 17.2 <=8.0 MV Lateral e' Velocity 6.2 cm/s >=10.0 MV E/e' (Lateral) 12.8 <=8.0 MV e' Average 5.38 cm/s MV E/e' (Average) 15.0 Tricuspid Valve ---- Name Value Normal - (more content not included)... Normal [facility] XR CHEST PA/APon 06-30-2021 XR CHEST PA/AP EXAMINATION: XR CHEST PA/AP 06/30/2021 9:51 pm HISTORY: ORDERING SYSTEM PROVIDED HISTORY: irreg heart davina, TECHNOLOGIST PROVIDED HISTORY: Illness/Other Reason for exam: irreg heart beat Cancer History: [place] Surgery, RadiationHistory: cardiac stent Encounter Type: Initial Additional signs and symptoms: Patient was unable to get out of vehicle and was assisted out of car by staff. Patient was screaming help me and slouched in wheelchair. Patient was taken straight back to room 14. Family states her blood sugar was really low at the [facility]. Pt is having runs of virginai harris MD aware. Pads attached to monitor at this time ORDERING SYSTEM PROVIDED DIAGNOSIS CODES: E16.2 Hypoglycemia COMPARISON: None. FINDINGS: Portable AP upright view of the chest. Prominent bilateral interstitial lung markings. Small right basilar opacity with blunting of the right costophrenic angle. No pneumothorax. Enlarged cardiomediastinal silhouette. No overt pulmonary vascular congestion. No acute osseous or soft tissue abnormalities. IMPRESSION: 1. Small right basilar opacity with blunting of the right costophrenic angle could reflect a combination of small pleural effusion, atelectasis, and/or airspace disease. 2. Prominent bilateral interstitial lung markings are nonspecific and could reflect small airways disease or pneumonitis. 3. Enlarged cardiomediastinal silhouette. Workstation ID: [id number] Dictated by: GRETCHEN MEYER on WedJune 30, 2021 10:21:35 PM EDT Transcribed by: GRETCHEN MEYER on WedJune 30, 2021 10:21:35 PM EDT Finalized by: GRETCHEN MEYER on WedJune 30, 2021 10:21:35 PM EDT Normal [facility] Comment on above: Order Comment: Injur y/Trauma or Illness?:Illness/Other How long have you had these symptoms (acute/chronic)?:Acute Reason for exam?:irreg heart beat History of cancer?:[place] Surgeries, chemotherapy, or radiation?:cardiac stent Type of Exam?:Initial Additional signs and symptoms?:Patient was unable to get out of vehicle and was assisted out of car by staff. Patient was screaming help me and slouched in wheelchair. Patient was taken straight back to room 14. [place] Pt is having runs of [place] harris MD aware. Pads attached to monitor at this time Vital Signs Date Time Vital Sign Value Performing Clinician Facility 09-15-2022 11:40-0400 Body height 157.48 cm Ramsey Steward Other [facility] Other 09-15-2022 11:40-0400 Body mass index (BMI) [Ratio] 32.92 kg/m2 Ramsey Steward Other [facility] Other 09-15-2022 11:40-0400 Body temperature 96.1 [degF] Ramsey Stewrad Other [facility] Other 09-15-2022 11:40-0400 Body weight 81.65 kg Ramsey Steward Other [facility] Other 09-15-2022 11:40-0400 Diastolic blood pressure 72 mm[Hg] Ramsey Steward Other [facility] Other 09-15-2022 11:40-0400 Respiratory rate 18 /min Ramsey Steward Other [facility] Other 09-15-2022 11:40-0400 SaO2% (BldA) [Mass fraction] 97 % Ramsey Steward Other [facility] Other 09-15-2022 11:40-0400 Systolic blood pressure 140 mm[Hg] Ramsey Steward Other [facility] Other 06-19-2022 10:14-0400 Body height 157.48 cm Darlene Mason [place] Work Phone: [employer] [place] [employer] 600 DO Work Phone: 06-19-2022 10:14-0400 Body mass index (BMI) [Ratio] 34.39 kg/m2 Darlene Mason [place] Work Phone: [place] [employer] [place] [employer] 600 DO Work Phone: 06-19-2022 10:14-0400 Body surface area Derived from formula 1.86 m2 Darlene Hatfield Work Phone: [facility] 600 DO Work Phone: 06-19-2022 10:14-0400 Body weight 85.28 kg Darlene Hatfield Work Phone: [facility] 600 DO Work Phone: 06-19-2022 10:14-0400 Diastolic blood pressure 68 mm[Hg] Darlene Mason [place]field Work Phone: [facility] 600 DO Work Phone: 06-19-2022 10:14-0400 Heart rate 66 /min Darlene Hatfield Work Phone: [facility] 600 DO Work Phone: 06-19-2022 10:14-0400 Systolic blood pressure 138 mm[Hg] Darlene Mason [place] Work Phone: [facility] 600 DO Work Phone: 06-19-2022 10:14-0400 7 1 Darlene Hatfield Work Phone: [facility] 600 DO Work Phone: Comment on above: PHQ-9 TS 04-22-2022 11:20-0400 Body height 157.48 cm [employer] [place] [employer] Other [facility] Other 04-22-2022 11:20-0400 Body mass index (BMI) [Ratio] 34.53 kg/m2 [employer] Other [facility] Other 04-22-2022 11:20-0400 Body temperature 97.3 [degF] [employer] [place] [employer] Other [facility] Other 04-22-2022 11:20-0400 Body weight 85.64 kg [employer]wan [employer] [place] [employer] Other [facility] Other 04-22-2022 11:20-0400 Diastolic blood pressure 80 mm[Hg] Ramsey Steward Other [facility] Other 04-22-2022 11:20-0400 Respiratory rate 18 /min Ramsey Steward Other [facility] Other 04-22-2022 11:20-0400 SaO2% (BldA) [Mass fraction] 98 % Ramsey Steward Other [facility] Other 04-22-2022 11:20-0400 Systolic blood pressure 154 mm[Hg] Ramsey Steward Other [facility] Other 01-19-2022 10:58-0500 Body height 157.48 cm Darlene Hatfield Work Phone: [facility] [employer] 600 DO Work Phone: 01-19-2022 10:58-0500 Body mass index (BMI) [Ratio] 35.48 kg/m2 Darlene Hatfield Work Phone: [facility] [employer] 600 DO Work Phone: 01-19-2022 10:58-0500 Body surface area Derived from formula 1.89 m2 Darlene Hatfield Work Phone: [facility] [employer] 600 DO Work Phone: 01-19-2022 10:58-0500 Body weight 88 kg Darlene Hatfield Work Phone: [facility] [employer] 600 DO Work Phone: 01-19-2022 10:58-0500 Diastolic blood pressure 60 mm[Hg] Darlene Hatfield Work Phone: [facility] 600 DO Work Phone: 01-19-2022 10:58-0500 Heart rate 68 /min Darlene Cuevas [place] Work Phone: [facility] 600 DO Work Phone: 01-19-2022 10:58-0500 Systolic blood pressure 136 mm[Hg] Darlene Cuevas [place] Work Phone: [facility] 600 DO Work Phone: 12-05-2021 10:36-0400 Body height 157.48 cm Darlene Cuevas [place] Work Phone: [facility] 600 DO Work Phone: 12-05-2021 10:36-0400 Body mass index (BMI) [Ratio] 36.03 kg/m2 Darlene Cuevas [place] Work Phone: [facility] 600 DO Work Phone: 12-05-2021 10:36-0400 Body surface area Derived from formula 1.9 m2 Darlene Cuevas [place] Work Phone: [facility] 600 DO Work Phone: 12-05-2021 10:36-0400 Body weight 89.36 kg Darlene Cuevas [place] Work Phone: [facility] 600 DO Work Phone: 12-05-2021 10:36-0400 Diastolic blood pressure 64 mm[Hg] Darlene Mason [place] Work Phone: [facility] 600 DO Work Phone: 12-05-2021 10:36-0400 Heart rate 88 /min Darlene Mason [place] Work Phone: [facility] 600 DO Work Phone: 12-05-2021 10:36-0400 Systolic blood pressure 120 mm[Hg] Darlene Cuevas [place] Work Phone: [facility] 600 DO Work Phone: 08-27-2021 09:21-0400 Body height 157.48 cm Darlene Gonzalezight Work Phone: [facility] 600 DO Work Phone: 08-27-2021 09:21-0400 Body mass index (BMI) [Ratio] 37.31 kg/m2 Darlene Gonzalezight Work Phone: [facility] 600 DO Work Phone: 08-27-2021 09:21-0400 Body surface area Derived from formula 1.93 m2 Darlene Hatfield Work Phone: [facility] 600 DO Work Phone: 08-27-2021 09:21-0400 Body weight 92.53 kg Darlene Hatfield Work Phone: [facility] 600 DO Work Phone: 08-27-2021 09:21-0400 Diastolic blood pressure 64 mm[Hg] Darlene Hatfield Work Phone: [facility] 600 DO Work Phone: 08-27-2021 09:21-0400 Heart rate 80 /min Darlene Hatfield Work Phone: [facility] 600 DO Work Phone: 08-27-2021 09:21-0400 Systolic blood pressure 110 mm[Hg] Darlene Hatfield Work Phone: [facility] 600 DO Work Phone: 07-22-2021 08:58-0400 Diastolic blood pressure 60 mm[Hg] Darlene Hatfield Work Phone: [facility] 250 DO Work Phone: 07-22-2021 08:58-0400 Systolic blood pressure 126 mm[Hg] Darlene Cuevas Selene Work Phone: [facility] 250 DO Work Phone: 07-22-2021 08:58-0400 Systolic blood pressure 134 mm[Hg] Darlene Cuevas Selene Work Phone: [facility] 250 DO Work Phone: 07-22-2021 08:40-0400 Diastolic blood pressure 60 mm[Hg] Darlene Cuevas Selene Work Phone: [facility] 250 DO Work Phone: 07-22-2021 08:40-0400 Systolic blood pressure 128 mm[Hg] Darlene Cuevas Selene Work Phone: [facility] 250 DO Work Phone: 07-22-2021 08:36-0400 Body height 157.48 cm Darlene Cuevas Selene Work Phone: [facility] 250 DO Work Phone: 07-22-2021 08:36-0400 Body mass index (BMI) [Ratio] 38.23 kg/m2 Darlene Cuevas Selene Work Phone: [facility] [facility] 250 DO Work Phone: 07-22-2021 08:36-0400 Body surface area Derived from formula 1.95 m2 Darlene Gonzalezight Work Phone: [facility] 250 DO Work Phone: 07-22-2021 08:36-0400 Body weight 94.8 kg Darlene Gonzalezight Work Phone: [facility] 250 DO Work Phone: 07-22-2021 08:36-0400 Diastolic blood pressure 62 mm[Hg] Darlene Gonzalezight Work Phone: [facility] 250 DO Work Phone: 07-22-2021 08:36-0400 Heart rate 56 /min Darlene Hatfield Work Phone: [facility] 250 DO Work Phone: 07-22-2021 08:36-0400 Systolic blood pressure 130 mm[Hg] Darlene Hatfield Work Phone: [facility] 250 DO Work Phone: 07-22-2021 08:27-0400 6 1 Darlene Hatfield Work Phone: [facility] 250 DO Work Phone: Comment on above: PHQ-9 TS 11-18-2020 13:35-0400 Body height 157.48 cm Oxana Bermanault Other [employer] Other 11-18-2020 13:35-0400 Body mass index (BMI) [Ratio] 36.58 kg/m2 Oxana Matteo Other [employer] Other 11-18-2020 13:35-0400 Body temperature 97.1 [degF] Oxana Matteo Other [employer] Other 11-18-2020 13:35-0400 Body weight 90.72 kg Oxana Matteo Other [employer] Other 11-18-2020 13:35-0400 Diastolic blood pressure 61 mm[Hg] Oxana Matteo Other [employer] Other 11-18-2020 13:35-0400 Respiratory rate 18 /min Oxana Matteo Other [employer] Other 11-18-2020 13:35-0400 SaO2% (BldA) [Mass fraction] 98 % Oxana Felipe Other [employer] Other 11-18-2020 13:35-0400 Systolic blood pressure 120 mm[Hg] Oxana Felipe Other [facility] [employer] Other Encounters Encounter Date Encounter Type Care Provider Facility Start: 12-22-2023 ambulatory Pilar Rodriguez Facility: [facility] Start: 03-30-2023 ambulatory Dewayne CuevasRodger Mat Facility :[facility] Start: 02-23-2023 ambulatory Denia Rowell [facility] Start: 02-16-2023 End: 02-17-2023 ambulatory Denia Rowell Facility:[facility] Start: 02-16-2023 End: 02-16-2023 Patient encounter procedure Denia Rowell [facility] Start: 02-09-2023 End: 02-10-2023 ambulatory Denia Rowell Facility:[facility] Start: 02-09-2023 End: 02-09-2023 Patient encounter procedure Denia Rowell [facility] Start: 02-02-2023 End: 02-03-2023 ambulatory Denia Rowell Facility:[facility] Start: 02-02-2023 End: 02-02-2023 Patient encounter procedure Denia Rowell [facility] Start: 01-26-2023 End: 01-27-2023 ambulatory Denia Rowell Facility:[facility] Start: 01-19-2023 End: 01-20-2023 ambulatory Denia Rowell Facility:[facility] Start: 01-12-2023 End: 01-13-2023 ambulatory Denia Rowell Facility:[facility] Start: 01-12-2023 End: 01-12-2023 Patient encounter procedure Denia Rowell [facility] Start: 01-05-2023 End: 01-06-2023 ambulatory Denia Rowell Facility:[facility] Start: 01-05-2023 End: 01-05-2023 Patient encounter procedure Denia Rowell [facility] Start: 12-29-2022 End: 12-30-2022 ambulatory Denia Rowell Facility:[facility] Start: 12-29-2022 End: 12-29-2022 Patient encounter procedure Denia Rowell [facility] Start: 12-22-2022 End: 12-23-2022 ambulatory Denia Rowell Facility:[facility] Start: 12-22-2022 End: 12-22-2022 Patient encounter procedure Denia Rowell [facility] Start: 12-21-2022 End: 12-22-2022 ambulatory Dewayne Richey Facility:[facility] Anum reaves Start: 10-07-2022 Rx Renewal Darlene Hatfield Work Phone: [facility] [place] 600 DO Work Phone: Start: 10-05-2022 End: 10-06-2022 ambulatory Dewayne Richey Facility:[facility] Start: 10-05-2022 End: 10-05-2022 Lab Drop off Dewayne Richey [facility] Start: 09-15-2022 End: 09-15-2022 ambulatory Ramsey Steward Other [facility] [employer] Other Start: 09-15-2022 Office outpatient visit 15 minutes Ramsey Steward [facility] A Start: 07-07-2022 End: 07-08-2022 ambulatory DEWAYNE RICHEY Facility:[facility] Start: 07-07-2022 End: 07-08-2022 ambulatory DARLENE HATFIELD Facility:[facility] Start: 07-07-2022 End: 07-07-2022 Lab Drop off DARLENE HATFIELD [facility] Start: 06-19-2022 Office outpatient visit 25 minutes Darlene Hatfield Work Phone: [facility] 600 DO Work Phone: Start: 06-19-[address] Darlene Miranda acility: Start: 06-01-2022 End: 06-01-2022 ambulatory Ramsey Houstons Other [facility] [employer] Other Start: 06-01-2022 Telephone encounter Azyecenia Vargashous [facility] Start: 05-26-2022 End: 05-27-[address] DARLENE HATFIELD . Facility:[facility] Start: 04-22-2022 End: 04-22-2022 ambulatory Ramsey Houstons Other [facility] [employer] Other Start: 04-22-2022 Office outpatient ne w 30 minutes Aziz Bakhous [facility] Start: 04-06-2022 End: 04-07-[address] DARLENE HATFIELD . Facility:[facility] Start: 04-03-2022 ambulatory DARLENE HATFIELD Facility:[facility] Start: 03-05-[address] Darlene Miranda acility: Start: 03-04-2022 Rx Renewal Darlene Hatfield Work Phone: [facility] 250 DO Work Phone: Start: 02-23-2022 Patient encounter procedure Darlene Hatfield Work Phone: [facility] 250 DO Work Phone: Start: 02-23-[address] Darlene Miranda acility: Start: 01-27-2022 AUDIT Darlene Hatfield Work Phone: [facility] 250 DO Work Phone: Start: 01-19-[address] Darlene Miranda acility: Start: 01-19-2022 Office outpatient visit 25 minutes Darlene Hatfield Work Phone: [facility] 250 DO Work Phone: Start: 01-19-2022 Patient encounter procedure Darlene Hatfield Work Phone: [facility] 600 DO Work Phone: Start: 01-07-2022 End: 01-08-[address] DARLENE HATFIELD . Facility:[facility] Start: 12-05-2021 Office outpatient visit 25 minutes Darlene Hatfield Work Phone: [facility] 600 DO Work Phone: Start: 12-05-[address] Darlene Miranda acility: Start: 12-01-2021 End: 12-02-[address] DARLENE HATFIELD . Facility:[facility] Start: 11-13-2021 Rx Renewal Darlene Hatfield Work Phone: [facility] 250 DO Work Phone: Start: 10-31-[address] Darlene Miranda acility: Start: 10-28-2021 Patient encounter procedure Darlene Hatfield Work Phone: [facility] 600 DO Work Phone: Start: 10-28-[address] Darlene Miranda acility: Start: 10-01-2021 End: 10-02-[address] DARLENE HATFIELD . Facility:[facility] Start: 08-27-2021 Office outpatient visit 25 minutes Darlene Hatfield Work Phone: [facility] 600 DO Work Phone: Start: 08-27-[address] Darlene Miranda acility: Start: 08-09-2021 End: 08-10-[address] DARLENE HATFIELD . Facility:[facility] Start: 08-06-2021 End: 08-07-[address] DARLENE HATFIELD . Facility: Start: 07-22-2021 Patient encounter procedure Darlene Hatfield Work Phone: [facility] 250 DO Work Phone: Start: 07-22-[address] Darlene Miranda acility: Start: 06-30-2021 End: 07-03-2021 Evaluation and management of inpatient [facility] Start: 12-11-2020 Telephone encounter Darlene Bobo ht Work Phone: [facility] 250 DO Work Phone: Start: 11-18-2020 (URG) Urgent Care Visit Oxana Felipe [facility] Miguel A Procedures Date Procedure Procedure Detail Performing Clinician Appendectomy Darlene Hatfield Work Phone: Appendectomy DARLENE HATFIELD Arthroscopy DARLENE HATFIELD Comment on above: left knee Bilateral cataracts (disorder) DARLENE HATFIELD Cardiac catheterization Darlene Hatfield Work Phone: Cataract surgery Darlene rios Work Phone: Cholecystectomy Darlene Hatfield Work Phone: Cholecystectomy DARLENE HATFIELD History of placement of stent in anterior descending branch of left coronary artery Status post insertion of drug-eluting stent into left anterior descending (LAD) artery Darlene Hatfield Work Phone: Hysterectomy Darlene Hatfield Work Phone: Laparoscopy Darlene Hatfield Work Phone: Lumpectomy of breast Darlene Faria night Work Phone: Operation on bladder Darlene Faria night Work Phone: Operative procedure on knee Darlene Hatfield Work Phone: Tonsillectomy and adenoidectomy Darlene Hatfield Work Phone: Tonsillectomy and adenoidectomy DARLENE HATFIELD Total colonoscopy Darlene Bobo Work Phone: Plan of Treatment Date Care Activity Detail Author Start: 04-21-2023 FUV, Provider: Zak Nguyen, Status: Pen, Time: 10:20 AM FUV, Provider: Zak Nguyen, Status: Pen, Time: 10:20 AM -[facility] 600 DO Work Phone: Start: 06-19-2022 FUV, Provider: Zak Nguyen, Status: Pen, Time: 10:10 AM FUV, Provider: Zak Nguyen, Status: Pen, Time: 10:10 AM -[facility] 250 DO Work Phone: Start: 01-19-2022 FUV, Provider: Zak Nguyen, Status: Pen, Time: 10:40 AM FUV, Provider: Zak Nguyen, Status: Pen, Time: 10:40 AM -[facility] 600 DO Work Phone: Start: 12-05-2021 FUV, Provider: Zak Nguyen, Status: Pen, Time: 10:20 AM FUV, Provider: Zak Nguyen, Status: Pen, Time: 10:20 AM -[facility] 600 DO Work Phone: Start: 10-28-2021 HOLTER 48, Provider: SHAUN TADEO OUTPLACEMENT CONSULTANT 1,[id number], Status: Pen, Time: 1:00 PM HOLTER 48, Provider: SHAUN TADEO OUTPLACEMENT CONSULTANT 1,[id number], Status: Pen, Time: 1:00 PM -[facility] 600 DO Work Phone: Start: 08-27-2021 FUV, Provider: Zak Nguyen, Status: Pen, Time: 9:20 AM FUV, Provider: Zak Nguyen, Status: Pen, Time: 9:20 AM -[facility] 250 DO Work Phone: Start: 08-13-2021 FUV, Provider: Zak Nguyen, Status: Pen, Time: 9:15 AM FUV, Provider: Zak Nguyen, Status: Pen, Time: 9:15 AM [facility] 250 DO Work Phone: Immunizations Immunization Date Immunization Notes Care Provider Dony cross 12-21-2022 influenza, high dose seasonal, preservative-free Denia Rowell [facility] 01-17-2021 Pfizer-BioNTech COVID-19 Vacc 30 MCG/0.3ML Intramuscular Suspension Darlene Hatfield Work Phone: [facility] 01-14-2021 influenza virus vaccine, unspecified formulation Dewayne Richey [facility] 01-14-2021 Seasonal, quadrivale nt, recombinant, injectable influenza vaccine, preservative free Darlene Hatfield Work Phone: [facility] 250 DO Work Phone: 04-22-2020 Pfizer-BioNTech COVID-19 Vacc 30 MCG/0.3ML Intramuscular Suspension Darlene Hatfield Work Phone: [facility] Comment on above: Result Comment: 2022: [id number] 04-01-2020 Pfizer-BioNTech COVID-19 Vacc 30 MCG/0.3ML Intramuscular Suspension Darlene Hatfield Work Phone: [facility] Comment on above: Result Comment: 2022: [id number] 11-27-2019 influenza virus vaccine, unspecified formulation Dewayne Richey [facility] 11-25-2019 influenza, high dose seasonal, preservative-free Darlene Hatfield Work Phone: [facility] 250 DO Work Phone: 04-20-2019 KENALOG - 10 mg Oxana long Other [employer] Other 04-20-2019 Toradol per 15 mg Oxana Matteo Other [employer] Other 12-05-2018 KENALOG - 10 mg Oxanabryon long Other [employer] Other 11-08-2018 pneumococcal polysaccharide vaccine, 23 valent Darlene Mason Hatfield Work Phone: [facility] 01-09-2018 Toradol per 15 mg Oxanabryn Felipe Other [employer] Other Payers Date Payer Category Payer Private Health Insurance [id number] 1961 Medicare [id number] 1961 Private Health Insurance [id number] 1950 Unknown [id number] .16.8 40.1.199097.3.579.2.727 1948 Unknown [id number] 2.16. 840.1.055925.3.579.2.903 1948 Unknown [id number] 2.16. 840.1.727835.3.579.2.356 1948 Unknown [id number] 2.16. 840.1.160815.3.579.2.356 1948 Unknown [id number] 2.16. 840.1.309865.3.579.2.356 1948 Unknown [id number] 2.16. 840.1.693743.3.579.2.356 1948 Unknown [id number] 2.16. 840.1.042560.3.579.2. 1948 Unknown [id number] 2.16. 840.1.945159.3.579.2.356 1948 Unknown [id number] 2.16. 840.1.478153.3.579.2.356 1948 Unknown [id number] 2.16. 840.1.609039.3.579.2.356 1948 Unknown [id number] 2.16. 840.1.722702.3.579.2.356 1948 Unknown [id number] 2.16.84 0.1.784324.3.579.2.593 1948 Unknown [id number] 2.16.84 0.1.698612.3.579.2.593 1948 Unknown [id number] 2.16.84 0.1.448806.3.579.2.593 1948 Unknown [id number] 2.16.84 0.1.776760.3.579.2.593 1948 Unknown [id number] 2.16.84 0.1.859058.3.579.2.593 1948 Unknown [id number] 2.16.84 0.1.262717.3.579.2.593 1948 Unknown [id number] 2.16.84 0.1.623947.3.579.2.593 1948 Unknown [id number] 2.16.84 0.1.726186.3.579.2.593 1948 Unknown [id number] 2.16.8 40.1.282568.3.579.2.727 1948 Unknown [id number] 2.16.8 40.1.697550.3.579.2.727 1948 Unknown [id number] 2.16.8 40.1.411353.3.579.2.727 1948 Unknown [id number] 2.16.8 40.1.451965.3.579.2.727 1948 Unknown [id number] 2.16.8 40.1.669149.3.579.2.727 1948 Unknown [id number] 2.16.8 40.1.209264.3.579.2. 1948 Unknown [id number] 2.16.8 40.1.027821.3.579.2. 1948 Unknown [id number] 2.16.8 40.1.916288.3.579.2. 1948 Unknown [id number] 2.16.8 40.1.392386.3.579.2. 1948 Unknown [id number] 2.16.8 40.1.771160.3.579.2. 1948 Unknown [id number] 2.16.8 40.1.143873.3.579.2. 1948 Unknown [id number] 2.16.8 40.1.229792.3.579.2. 1948 Unknown [id number] 2.16.8 40.1.685353.3.579.2. 1948 Unknown [id number] 2.16.8 40.1.574720.3.579.2. 1948 Unknown [id number] 2.16.8 40.1.946116.3.579.2. 1948 Unknown [id number] 2.16.8 40.1.010925.3.579.2. 1948 Unknown [id number] 2.16.8 40.1.106004.3.579.2 Medicare [id number] 2.16.8 40.1.335847.19 Medicare [id number] 2.1 6.840.1.278725.19 Unknown Social History Date Type Detail Facility Caffeine use Caffeine use [employer] Other Comment on above: Occas coffee; Sex Assigned At [facility] Start: 07-07-2022 End: 12-21-2022 Tobacco smoking status [facility] Comment on above: never a smoker [facility] Comment on above: never a smoker Functional Status Date Assessment Result Facility 07-22-2021 PHQ-9 [id number] Mild (5-9) [facility] Nayak DO Work Phone: Clinical Notes 11-18-2020 to 09-15-2022 Note Date & Type Note Facility 09-15-2022 Evaluation note Encounter Date Diagnosis Assessment Notes Sep, Diabetic nephropathy associated with type 1 diabetes mellitus (ICD-10 - E10.21) Patient follows with Dr. Hatfield in primary care office for diabetes management. Last hemoglobin A1c remains below 7%. I explained the patient the necessity of controlling diabetes to preserve kidney function. Patient might benefit from adding SLG 2 inhibitor which proven to slow CKD progression.I will defer this to the primary physician Sep, Chronic kidney disease, stage 3b (ICD-10 - N18.32) Likely from hypertensive and diabetic nephropathy. Serum creatinine fluctuate between 1.0 to 1.3 mg/dL and GFR between 40 and 55. UA is benign except leukocyte esterase large. Protein to creatinine ratio 200 mg/g. Patient is already on max dose of losartan. I explained the patient that necessity of controlling diabetes and hypertension to preserve kidney function. Keep hemoglobin A1c below 7% and blood pressure below 130/80. PTH, calcium and phosphorus are all within normal limit. Advised the patient to avoid all NSAIDs and to keep good hydration. I will follow-up with the patient in 6 months Sep, Hyperlipidemia, unspecified hyperlipidemia type (ICD-10 - E78.5) LDL within target. LDL goal below 100 to reduce cardiovascular disease and CKD patient. Patient is on statin. She follows with her PCP Sep, Primary hypertension (ICD-10 - I10) Blood pressure target is below 130/80. Patient on max dose of losartan. Patient remains on the same dose of amlodipine 5 mg p.o. daily [employer] Other 04-18-2023 NotePROCEDURE: US KIDNEYS DATE: 05/26/2022 8:54 AM CDT COMPARISONS: None. INDICATION FOR EXAMINATION: 71 years Female Renal disorder associated with type I diabetes mellitus TECHNIQUE: Grayscale and color Doppler technique were utilized to evaluate the retroperitoneum. FINDINGS: KIDNEYS: The right kidney measures 11.2 x 4.9 x 4.9 cm. The left kidney measures 10.6 x 5.9 x 5.2 cm. There is no evidence of hydronephrosis. There is no ultrasonic evidence of solid focal renal masses or other significant renal parenchymal abnormalities. The renal cortices appear to be within normal limits without evidence of cortical thinning. There is evidence of a cyst in the mid lateral right kidney measuring 2.7 x 2.6 x 2.0 cm. Similarly, there is evidence of a cyst inferior aspect left kidney measuring 1.0 x 1.0 x 0.9 cm URINARY BLADDER: There is no ultrasonic evidence of urinary bladder abnormalities. ASSESSMENT: The kidneys and urinary bladder show no ultrasonic evidence of significant abnormalities. Bilateral renal cysts as described above. Electronically authenticated by: RADHA OGLESBY Date: 2022-05-26 12:07[facility]03-15-2023 Evaluation note* Encounter Date Diagnosis Assessment Notes Treatment Notes Treatment Clinical Notes Apr, Diabetic nephropathy associated with type 1 diabetes mellitus (ICD-10 - E10.21) Patient follows with Dr. Hatfield in primary care office for diabetes management. Last hemoglobin A1c 6.8%. I explained the patient the necessity of controlling diabetes to preserve kidney function. Patient might benefit from adding SLG 2 inhibitor which proven to slow CKD progression Apr, Chronic kidney disease, stage 3b (ICD-10 - N18.32) Likely from hypertensive and diabetic nephropathy. Serum creatinine 1.3 mg/dL. GFR 39 mm/min I explained the patient that necessity of controlling diabetes and hypertension to preserve kidney function. Keep hemoglobin A1c below 7% and blood pressure below 130/80. It is unknown if the patient has proteinuria and/or hematuria. I will check UA along with protein to creatinine ratio. I will start CKD work-up. I will check renal ultrasound along with PTH, calcium and phosphorus level Advised the patient to avoid all NSAIDs and to keep good hydration. I will follow-up with the patient in 3 months Apr, Hyperlipidemia, unspecified hyperlipidemia type (ICD-10 - E78.5) LDL within target. LDL goal below 100 to reduce cardiovascular disease and CKD patient. Patient is on statin. She follows with her PCP Apr, Primary hypertension (ICD-10 - I10) Blood pressure target is below 130/80. Blood pressure is elevated here in the clinic. I asked the patient to monitor her blood pressure at home and to to call my office if blood pressure persistently more than 150/90. Patient on max dose of losartan. Mild increase amlodipine to 10 mg if blood pressure remains uncontrolled [place] [employer] Other 10-11-2021 Evaluation note* Encounter Date Diagnosis Assessment Notes Treatment Notes Treatment Clinical Notes Nov, Injury of back, initial encounter (ICD-10 - S39.92XA) patient is in so much pain she is unable to speak and breath; patient is tearful and states pain is intolerable. Recommend ER due to level of discomfort at this time. [employer] Other Evaluation + Plan note Future Appointments Appointment Date:10/05/2022 04:40:00 PM Scheduled Provider:Dewayne Richey MD [facility]ments Appointment Date:12/29/2022 11:00:00 AM Scheduled Provider: Location:[facility] Appointment Type:FM Medicare Wellness Subsequent Appointment Date:04/05/2023 10:00:00 AM Scheduled Provider:Dewayne Richey MD Location:[facility] Appointment Type:[facility] Diagnostic Tests Pending * CBC w/ Auto Diff 10/05/22 * Comprehensive Metabolic Panel 10/05/22 * Lipid Panel 10/05/22 * HgbA1c 10/05/22 * Microalbumin Level Urine 10/05/22 * U Protein/Creat Ratio [facility]ments Appointment Date:12/29/2022 10:00:00 AM Scheduled Provider:Denia Ding Location:[facility] Appointment Type:BH Therapy 60 Appointment Date:04/05/2023 10:00:00 AM Scheduled Provider:Dewayne Richey MD Location:[facility] Appointment Type:FM Open Appointment Date:12/22/2023 11:00:00 AM Scheduled Provider: Location:[facility] Appointment Type: Medicare Wellness Subsequent [facility] evaluation + Plan note Future Appointments Appointment Date:01/05/2023 10:00:00 AM Scheduled Provider:Denia Ding Location:[facility] Appointment Type:BH Therapy 60 Appointment Date:04/05/2023 10:00:00 AM Scheduled Provider:Dewayne Richey MD Location:[facility] Appointment Type:FM Open Appointment Date:12/22/2023 11:00:00 AM Scheduled Provider: Location:[facility] Appointment Type: Medicare Wellness [facility] evaluation + Plan note Future Appointments Appointment Date:01/12/2023 10:00:00 AM Scheduled Provider:Denia Ding Location:[facility] Appointment Type:BH Therapy 60 Appointment Date:04/05/2023 10:00:00 AM Scheduled Provider:Dewayne Richey MD Location:[facility] Appointment Type: Open Appointment Date:12/22/2023 11:00:00 AM Scheduled Provider: Location:[facility] Appointment Type: Medicare Wellness [facility] evaluation + Plan note Future Appointments Appointment Date:01/19/2023 01:00:00 PM Scheduled Provider:Denia Ding Location:[facility] Appointment Type:BH Therapy 60 Appointment Date:04/05/2023 10:00:00 AM Scheduled Provider:Dewayne Richey MD Location:[facility] Appointment Type:FM Open Appointment Date:12/22/2023 11:00:00 AM Scheduled Provider: Location:[facility] Appointment Type:FM Medicare Wellness [facility] evaluation + Plan note Future Appointments Appointment Date:02/09/2023 11:00:00 AM Scheduled Provider:Denia Ding Location:[facility] Appointment Type:BH Therapy 60 Appointment Date:03/30/2023 10:00:00 AM Scheduled Provider:Dewayne Richey MD Location:[facility] Appointment Type:FM Open Appointment Date:12/22/2023 11:00:00 AM Scheduled Provider: Location:[facility] Appointment Type: Medicare Wellness [facility] evaluation + Plan note Future Appointments Appointment Date:02/16/2023 10:00:00 AM Scheduled Provider:Denia Ding Location:[facility] Appointment Type:BH Therapy 60 Appointment Date:03/30/2023 10:00:00 AM Scheduled Provider:Dewayne Richey MD Location:[facility] Appointment Type: Open Appointment Date:12/22/2023 11:00:00 AM Scheduled Provider: Location:[facility] Appointment Type: Medicare Wellness [facility] evaluation + Plan note Future Appointments Appointment Date:02/23/2023 02:00:00 PM Scheduled Provider:Denia Ding Location:[facility] Appointment Type:BH Therapy 60 Appointment Date:03/30/2023 10:00:00 AM Scheduled Provider:Dewayne Richey MD Location:[facility] Appointment Type: Open Appointment Date:12/22/2023 11:00:00 AM Scheduled Provider: Location:[facility] Appointment Type:FM Medicare Wellness Subsequent [facility] [employer] Other [place] [facility] Narrative - Reported* Type Description Date Medical History Insomnia Medical History Anxiety Medical History OAB (overactive bladder) Medical History type I diabetes Medical History high cholesterol Surgical History tonsillectomy and adenoidectomy Surgical History appendectomy Surgical History knee surgery Surgical History cyst removal Surgical History hysterectomy Surgical History cholecystectomy Surgical History bowel surgery Surgical History eyes Surgical History lumpectomy Surgical History bladder sling Hospitalization History see above [employer] Other Hisbw[facility] general Narrative - Reported* Type Description Date Medical History Insomnia Medical History Anxiety Medical History OAB (overactive bladder) Medical History type I diabetes Medical History high cholesterol Medical History CHRONIC KIDNEY DISEASE 3 Medical 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 Medical History GASTROPARESIS Medical History GERD Medical History PURE HYPERCHOLESTEROLEMIA Surgical History tonsillectomy and adenoidectomy Surgical History appendectomy Surgical History knee surgery Surgical History cyst removal Surgical History hysterectomy Surgical History cholecystectomy Surgical History bowel surgery Surgical History eyes Surgical History lumpectomy Surgical History bladder sling Surgical History BOWEL BLOCKAGE Surgical History BREAST LUMP Hospitalization History see above Hospitalization History 4 CHILD BIRTHS [employer] Other History of Present illness Narrative* Patient is seen in follow-up with suggestion of her primary care physician. Recently she was hospitalized in a hospital out of town for a hypoglycemic reaction. While there she was noted to have frequent PVCs. A 7-day event monitor was applied by primary care and it demonstrates frequent PVCs with up to 40% PVCs. Advised the patient that this is interesting and obviously its understanding that she is concerned. Review of medicines demonstrates that her hypertension diabetes and hyperlipidemia are well controlled. Her PVCs could be on the basis of an escape rhythm potentiated by beta-blockers which slowed down her sinus rate. Because of this I recommended she wean off her metoprolol and after that we will perform another Holter monitor to identify the frequency and/or quantity of PVCs. It is very possible that stopping beta-blockers will clear up the PVCs. If not, though, further evaluation will be undertaken * I reviewed her chart and not too long ago we evaluated her coronary disease and ventricle with an echocardiogram and there were no significant findings that would suggest PVCs or malignant. Because of this we will proceed with metoprolol weaning and a follow-up Holter and then she will come back and I will decide what our next steps are going to be. -[facility] Work Phone: History of Present illness Narrative* Patient returns in follow-up of problems as noted. In the interim she has had no angina CHF or arrhythmia symptomatology. She weaned off beta-autumn therapy and repeat Holter demonstrated frequent PVCs about 50% of all heartbeats. Because of this I advised her its difficult to understand why she continues to have these extra beats. We discussed possible etiologies including her use of amitriptyli ne which could be proarrhythmic and/or predispose her to these arrhythmias. Because of this I recommended stopping it. * Interestingly, auscultation today demonstrates a perfectly regular rhythm. No extrasystoles at all.This is exactly the opposite of what we saw on the Holter monitor and because of this its not clearto me whether or not the ventricular arrhythmia persist. Nonetheless our plan is to stop amitriptyline and reassess with physical exam in 4 to 6 weeks. If there is frequent ectopy we will attempt a suppressive mechanism. There is absence of ectopy we will repeat the Holter monitor again to quantifythe improvement and/or perceived improvement in the arrhythmia. The reason and rationale for this approach was discussed in great detail with her and her . They agree to plan. Again I explained to them that I do not believe that the ventricular arrhythmias appear to be malignant and/or life-threatening because of a recently normal stress test and echocardiogram and they understand this concept as well. * Fortunately, off metoprolol, blood pressure is controlled. Diabetes and lipids also appear to be adequately addressed. [facility] 600 DO Work Phone: History of Present illness Narrative* Patient returns again in follow-up of frequent PVCs. As before auscultation and palpation demonstrates a completely regular rhythm and we find this confusing and somewhat paradoxical. I am still suspicious that there may have been an environmental trigger such as beta-blockers, amitriptyline, or possibly a resolving myocarditis from a viral infection. Nonetheless I suggested to her that now that she is off amitriptyline, doing okay, that she not resume this medicine or the metoprolol. We discussed, as before, repeating another Holter monitor to ascertain whether the arrhythmia has resolved and she and her are very interested in doing this to exclude other sim unrecognized frequent ventricular arrhythmias that may escape detection during this brief office patient encounter. Because of this we will do a Holter monitor to evaluate her PVCs and/or frequent ventricular arrhythmia. * Review of her other symptoms associate with heart disease demonstrates she has no symptoms of coronary disease superseded her original diagnosis and subsequent PTCA. Lipids blood pressure also appearto be adequately addressed. As before we did advocate the merits of diet and weight loss. [facility] 250 DO Work Phone: History of Present illness Narrative* Patient returns in follow-up of problems as noted. In the interim she is done well. Her coronary disease is asymptomatic and consequently we believe it to be stable. Hypertension diabetes and hyperlipidemia appear to be adequately managed. * In regards to PVCs her recent Holter showed 9000 PVCs. The previous Holter 160,000 PVCs. We believethem to be potentiated and/or triggered by amitriptyline therapy and after stopping it there was a obvious dramatic reduction in the frequency of ventricular ectopy and all of her symptoms resolved. Because of this she will stay off of it. I suggested if she needs something to help sleep she try Tylenol PM. * The merits of diet and weight loss were advocated. She was educated also regarding arrhythmia symptoms and encouraged to call if they arise or occur. [facility] 600 DO Work Phone: Hospital course Narrative No data available for this section [facility] No data available for this section [facility] No data available for this section [facility] Family History No Family History Records FoundUnknown Family Member Name Dates Details Family history of cardiovasc ular disease: Mother, Father(V17.49, Z82.49) Status:Active Family history of diabetes m ellitus: Sister(V18.0, Z83.3) Status:Active Unknown Family Member Name Dates Details Family history of cardiovasc ular disease: Mother, Father(V17.49, Z82.49) Status:Active Family history of diabetes m ellitus: Sister(V18.0, Z83.3) Status:Active Unknown Family Member Name Dates Details Family history of cardiovasc ular disease: Mother, Father(V17.49, Z82.49) Status:Active Family history of diabetes m ellitus: Sister(V18.0, Z83.3) Status:Active Unknown Family Member Name Dates Details Family history of cardiovasc ular disease: Mother, Father(V17.49, Z82.49) Status:Active Family history of diabetes m ellitus: Sister(V18.0, Z83.3) Status:Active Unknown Family Member Name Dates Details Family history of cardiovasc ular disease: Mother, Father(V17.49, Z82.49) Status:Active Family history of diabetes m ellitus: Sister(V18.0, Z83.3) Status:Active Unknown Family Member Name Dates Details Family history of cardiovasc ular disease: Mother, Father(V17.49, Z82.49) Status:Active Family history of diabetes m ellitus: Sister(V18.0, Z83.3) Status:Active Unknown Family Member Name Dates Details Family history of cardiovasc ular disease: Mother, Father(V17.49, Z82.49) Status:Active Family history of diabetes m ellitus: Sister(V18.0, Z83.3) Status:Active Unknown Family Member Name Dates Details Family history of cardiovasc ular disease: Mother, Father(V17.49, Z82.49) Status:Active Family history of diabetes m ellitus: Sister(V18.0, Z83.3) Status:Active Unknown Family Member Name Dates Details Family history of diabetes m ellitus: Sister(V18.0, Z83.3) Status:Active Family history of cardiovasc ular disease: Mother, Father(V17.49, Z82.49) Status:Active Unknown Family Member Name Dates Details Family history of cardiovasc ular disease: Mother, Father(V17.49, Z82.49) Status:Active Family history of diabetes m ellitus: Sister(V18.0, Z83.3) Status:Active Unknown Family Member Name Dates Details Family history of cardiovasc ular disease: Mother, Father(V17.49, Z82.49) Status:Active Family history of diabetes m ellitus: Sister(V18.0, Z83.3) Status:Active Unknown Family Member Name Dates Details Family history of cardiovasc ular disease: Mother, Father(V17.49, Z82.49) Status:Active Family history of diabetes m ellitus: Sister(V18.0, Z83.3) Status:Active Summary Purpose Advance Directives No Advanced Directives Records FoundNo Advanced Directives Records FoundNo Advanced Directives Records FoundNo Advanced Directives Records FoundNo Advanced Directives Records Found Chief Complaint NETTA DAWSON is being seen for an annual follow-up of [place] Abnormal Holter.NETTA DAWSON is being seen for Testing results.NETTA DAWSON is being seen for a 4-6 weeks week follow-up of.NETTA DAWSON is being seen for a 4-6 weeks week follow-up of.NETTA DAWSON is being seen for a 6 month follow-up of. Additional Source Comments INFORMATION SOURCE (unrecogn ized section and content) DATE CREATED AUTHOR 07/31/2021 [facility] DATE CREATED AUTHOR AUTHOR'S ORGANIZ ATION 06/21/2022 [facility] [place] DATE CREATED AUTHOR AUTHOR'S ORGANIZ ATION 07/17/2022 [facility] DATE CREATED AUTHOR AUTHOR'S ORGANIZ ATION 12/25/2022 [employer] DATE CREATED AUTHOR AUTHOR'S ORGANIZ ATION 02/17/2023 [facility] REASON FOR VISIT (unrecogniz ed section and content) LOW BACK PAIN, SPASMS, BENT OVER TO TIE SHOE AND COULD BARELY STAND UPReason for Visit:Holter Monitor:NETTA is here for the application of a 48 hour Holter monitor.Ordering Physician: Dr. Zak Nguyen, MDDiagnosis: PVC I49.3NO equipment agreement signed. NETTA understands monitor is to be returned on: 10/30/2021Monitor number [id number] applied.Reason for Visit:Holter Monitor:NETTA is here for the application of a 24 hour Holter monitor.Ordering Physician: Dr. Zak Nguyen, MDDiagnosis: pvcNOHC equipment agreement signed. NETTA cisneross monitor is to be returned on: 02/24/22Monitor number [id number] applied.Holter monitor returned and downloaded.Holter monitor printed and placed on Dr. Zak Nguyen MD desk to dictate.RENAL CKD 3RENAL USRENAL 3 month Follow up Patient Care team informatio n (unrecognized section and content) Personnel Name: DARLENE HATFIELD MD Address: Address: [address] [place] [address] Personnel Name: Dewayne Richey MD Address: Address: [address] [place] [address] Personnel Name: Dewayne Richey MD Address: Address: [address] [place] [address] Personnel Name: Dewayne Richey MD Address: Address: [address] [place] [address] Personnel Name: Dewayne Richey MD Address: Address: [facility] [address] Personnel Name: Dewayne Richey MD Address: Address: [facility] [address] Personnel Name: Dewayne Richey MD Address: Address: [address] [place], [place] [address] [address] Personnel Name: Dewayne Richey MD Address: Address: [address] [place], [place] [address] [address] Personnel Name: Dewayne Richey MD Address: Address: [address] [place], [place] [address] [address] FOR RECORDS PERTAINING TO PATIENTS WHO ARE OR HAVE BEEN ENROLLED IN A CHEMICAL DEPENDENCY/SUBSTANCEABUSE PROGRAM, SOME INFORMATION MAY BE OMITTED. This clinical summary was aggregated from multiple sources. Caution should be exercised in using it in the provision of clinical care. This summary normalizes information from multiple sources, and as a consequence, information in this document may materially change the coding, format and clinical context of patient data. In addition, data may be omitted in some cases. CLINICAL DECISIONS SHOULD BE BASED ON THE PRIMARY CLINICAL RECORDS. [facility] [employer] [facility] provides no warranty or guarantee of the accuracy or completeness of information in this document.
[2023-02-22 13:20] LABS: Alanine Aminotransferase 24 U/L (14-59); Albumin Globulin Ratio 0.9; Albumin Level 3.4 g/dL (3.4-5.0); Alkaline Phosphatase 63 U/L (46-116); Anion Gap 11.8; Aspartate Amino Transferase 23 U/L (15-37); BUN Creatinine Ratio 16.4; Bilirubin Total 0.4 mg/dL (0.2-1.0); Calcium 9.6 mg/dL (8.5-10.1); Carbon Dioxide 26.6 mmol/L (21.0-32.0); Chloride 105 mmol/L (98-107); Estimated GFR (African America 59 (>=60); Estimated GFR (Non-African Ame 49 (>=60); Globulin 3.7 g/dL; Glucose 85 mg/dL (74-106); Magnesium 2.1 mg/dL (1.8-2.4); Potassium 4.4 mmol/L (3.5-5.1); Sodium 139 mmol/L (136-145); Total Protein 7.1 g/dL (6.4-8.2)
[2023-02-22 13:22] LABS: Hematocrit 42.7 % (36.0-48.0); Hemoglobin 13.6 g/dL (12.0-16.0); Mean Corpuscular HGB Conc 31.9 g/dL (29.9-35.2); Mean Corpuscular Hemoglobin 26.5 pg (26.7-34.0); Mean Corpuscular Volume 83.2 fL (81.0-99.0); Mean Platelet Volume 12.4 fL (9.5-13.5); Platelet Count 178 10^3/uL (150-450); Red Blood Count 5.13 10^6/uL (4.20-5.40); Red Cell Distribution Width 15.9 % (11.0-15.0); White Blood Count 8.3 10^3/uL (4.0-11.0)
[2023-02-22 13:29] LABS: Bilirubin Urine NEGATIVE (NEGATIVE); Blood Urine NEGATIVE (NEGATIVE); Clarity Urine CLEAR (CLEAR); Color Urine YELLOW (YELLOW); Glucose Urine UA NEGATIVE (NEGATIVE); Ketones Urine NEGATIVE (NEGATIVE); Leukocyte Esterase Urine LARGE (NEGATIVE); Nitrite Urine NEGATIVE (NEGATIVE); Protein Urine NEGATIVE (NEG/TRACE); Specific Gravity Urine >=1.030 (1.005-1.025); Urobilinogen Urine 0.2 EU/dL (0.2-1.0); pH Urine 5.5 (5.0-9.0)
== END 2023-02-22 12:32 | disposition home or self-care (01) ==
LOC: LAB 12:32
PROVIDERS: PCP Family Medicine; Visit Provider Internal Medicine Nephrology
DX: E10.21 Type 1 diabetes mellitus with diabetic nephropathy (principal); N18.32 Chronic kidney disease, stage 3b; E78.5 Hyperlipidemia, unspecified; I10 Essential (primary) hypertension
CPT/HCPCS: 36415; 80053; 81003; 83735; 84100; 85027

== ENCOUNTER 2023-09-22 07:56 | Outpatient (OUT) | payer MEDICARE, SELFPAY ==
[2023-09-22 11:10] LABS: Hematocrit 40.3 % (36.0-48.0); Hemoglobin 12.9 g/dL (12.0-16.0); Mean Corpuscular Volume 84.3 fL (81.0-99.0); Platelet Count 174 10^3/uL (150-450); Red Blood Count 4.78 10^6/uL (4.20-5.40); Red Cell Distribution Width 15.5 % (11.0-15.0); White Blood Count 8.5 10^3/uL (4.0-11.0)
[2023-09-22 11:53] LABS: Creatinine Urine Random 86.39 mg/dL (20.00-300.00); Protein Creatinine Ratio Urine 0.15; Total Protein Urine Random 12.7 mg/dL (<=11.9)
[2023-09-22 12:25] LABS: Alanine Aminotransferase 23 U/L (14-59); Albumin Globulin Ratio 1.2; Albumin Level 3.8 g/dL (3.4-5.0); Alkaline Phosphatase 63 U/L (46-116); Anion Gap 9.1; Aspartate Amino Transferase 16 U/L (15-37); Bilirubin Total 0.6 mg/dL (0.2-1.0); Calcium 10.3 mg/dL (8.5-10.1); Carbon Dioxide 30.1 mmol/L (21.0-32.0); Chloride 102 mmol/L (98-107); Estimated GFR (African America >60 (>=60); Estimated GFR (Non-African Ame 51 (>=60); Globulin 3.3 g/dL; Glucose 60 mg/dL (74-106); Magnesium 1.8 mg/dL (1.8-2.4); Phosphorus 3.5 mg/dL (2.6-4.7); Potassium 4.2 mmol/L (3.5-5.1); Sodium 137 mmol/L (136-145); Total Protein 7.1 g/dL (6.4-8.2); Uric Acid 3.2 mg/dL (2.6-6.0)
[2023-09-23 12:09] LABS: PTH, Intact 19 pg/mL (15-65)
--- OUTSIDE RECORDS SUMMARY | 2023-09-27 08:08 | XMS_ITS | CCD ---
Author Organization [facility] Care Team Providers Care Switchboard Operator Supervisor Name Role Phone Domonique Hatfield Unavailable Unavailable Unavailable [facility] Consulting MIKEY Olson Attending Unavailable AMARILIS PIERCE Admitting Unavailable DOMONIQUE HATFIELD Primary Care Unavailable H AND V, [facility] Consulting Unavailable Oxana Felipe Unavailable CelsoamandeepRamsey Unavailable Liu, Dr. Domonique Elena Primary Care Unavailab le McGuinn II, Dr. Zak Kendall Referring Unavailable McGuinn II, Dr. Zak Kendall Attending Unavailable Hatfield, Dr. Domonique Elena Primary Care Unavailab le McGuinn II, Dr. Zak Kendall Attending Unavailable McGuinn II, Dr. Zak Kendall Referring Unavailable Hatfield, Dr. Domonique Elena Primary Care Unavailab le McGuinn II, Dr. Zak Kendall Attending Unavailable McGuinn II, Dr. Zak Kendall Referring Unavailable Hatfield, Dr. Domonique Elena Primary Care Unavailab le McGuinn II, Dr. Zak Kendall Referring Unavailable McGuinn II, Dr. Zak Kendall Attending Unavailable Hatfield, Dr. Domonique Elena Primary Care Unavailab le McGuinn II, Dr. Zak Kendall Attending Unavailable McGuinn II, Dr. Zak Kendall Referring Unavailable Hatfield, Dr. Domonique Elena Primary Care Unavailab le McGuinn II, Dr. Zak Kendall Attending Unavailable McGuinn II, Dr. Zak Kendall Referring Unavailable Hatfield, Dr. Domonique Elena Primary Care Unavailab le McGuinn II, Dr. Zak Kendall Referring Unavailable McGuinn II, Dr. Zak Kendall Attending Unavailable Hatfield, Dr. Domonique Elena Primary Care Unavailab le McGuinn II, Dr. Zak Kendall Attending Unavailable McGuinn II, Dr. Zak Kendall Referring Unavailable Hatfield, Dr. Domonique Elena Primary Care Unavailab le Wendy HUERTA, Dr. Zak Kendall Attending Unavailable McGuinn II, Dr. Zak Kendall Referring Unavailable DEWAYNE RICHEY Primary Care Unavailable HATFIELD ., DR DOMONIQUE Cuevas Attending Unavailable HATFIELD ., DR DOMONIQUE Cuevas Admitting Unavailable HATFIELD ., DR DOMONIQUE Cuevas Consulting Unavailable HATFIELD ., DR DOMONIQUE Cuevas Primary Care Unavailable RADHA OGLESBY Consulting Unavailable BAKHOUS, AZIZ Admitting Unavailable BAKHOUS, AZIZ Attending Unavailable BAKHOUS, AZIZ Consulting Unavailable HATFIELD ., DR DOMONIQUE Cuevas Primary Care Unavailable HATFIELD ., DR DOMONIQUE Cuevas Attending Unavailable HATFIELD ., DR DOMONIQUE Cuevas Admitting Unavailable HATFIELD ., DR DOMONIQUE Cuevas Consulting Unavailable HATFIELD ., DR DOMONIQUE Cuevas Primary Care Unavailable HATFIELD ., DR DOMONIQUE Cuevas Admitting Unavailable HATFIELD ., DR DOMONIQUE Cuevas Attending Unavailable HATFIELD ., DR DOMONIQUE Cuevas Consulting Unavailable HATFIELD ., DR DOMONIQUE Cuevas Admitting Unavailable HATFIELD ., DR DOMONIQUE Cuevas Attending Unavailable HATFIELD ., DR DOMONIQUE Cuevas Consulting Unavailable HATFIELD ., DR DOMONIQUE Cuevas Primary Care Unavailable GOOD[place], DR JAVAD Katz Consulting Unavailable HATFIELD ., DR DOMONIQUE Cuevas Consulting Unavailable HATFIELD ., DR DOMONIQUE Cuevas Admitting Unavailable HATFIELD ., DR DOMONIQUE Cuevas Attending Unavailable HATFIELD ., DR DOMONIQUE Cuevas Primary Care Unavailable HATFIELD ., DR DOMONIQUE Cuevas Admitting Unavailable HATFIELD ., DR DOMONIQUE Cuevas Attending Unavailable HATFIELD ., DR DOMONIQUE Cuevas Consulting Unavailable HATFIELD ., DR DOMONIQUE Cuevas Primary Care Unavailable HATFIELD ., DR DOMONIQUE Cuevas Admitting Unavailable HATFIELD ., DR DOMONIQUE Cuevas Attending Unavailable HATFIELD ., DR DOMONIQUE Cuevas Consulting Unavailable HATFIELD ., DR DOMONIQUE Cuevas Primary Care Unavailable HATFIELDDOMONIQUE Primary Care Physician Dewayne Richey. Primary Care Physician Domonique Hatfield MD Primary Care Provider [phone] GARY CHÁVEZ Attending Unavailable DOMONIQUE HATFIELD Primary Care Unavailable Denia Rowell Attending Unavailable RowellDenia coronado Attending Unavailable RowellDenia coronado L Attending Unavailable RowellRiley coronadoa L Attending Unavailable RowellRiley coronadoa L Attending Unavailable RowellRiley coronadoa L Attending Unavailable RowellRiley coronadoa L Attending Unavailable RowellRiley coronadoa L Attending Unavailable Rowell, Denia L Attending Unavailable Dewayne Richey Attending Unavailable DOMINIC ORTEGA Attending Unavailable Dewayne Richey Attending Unavailable Dewayne Richey Admitting Unavailable Dewayne Richey Attending Unavailable Dewayne Richey Admitting Unavailable Rowell, Denia L Attending Unavailable Rowell, Denia L Attending Unavailable Rowell, Denia L Attending Unavailable Dewayne Richey Attending Unavailable Pilar Rodriguez Attending Unavailable Dewayne Richey Attending Unavailable Dewayne Richey Attending Unavailable Dewayne Richey Attending Unavailable Rowell, Denia L Attending Unavailable Rowell, Denia L Attending Unavailable Rowell, Denia L Attending Unavailable Rowell, Denia L Attending Unavailable Rowell, Denia L Attending Unavailable Rowell, Denia L Attending Unavailable Rowell, Denia L Attending Unavailable Rowell, Denia L Attending Unavailable Rowell, Denia L Attending Unavailable Allergies Allergy Classification Reported Allergen(s) Allergy Type Date of Onset Reaction(s) Facility (20 sources) Diclofenac / miSOPROStol; Translations: [diclofenac-mis oprostol] Drug Allergy Unknown (qualifier value) [facility] (1 source) Diclofenac / miSOPROStol; Translations: [Arthrotec] Drug Allergy [facility] (1 source) No Known Medication Allergies; Translations: [No Known Medication Allergies] Propensity to adverse reactions (disorder) [facility] Medications Current Medications Medication Drug Class(es) Dates Sig (Normalized) Sig (Original) amLODIPine 5 mg oral tablet (20 sources) Dihydropyridine Calcium Channel Feng Start: 05-25-2022 take 0.5 tablet by mouth once daily amLODIPine 10 mg Tab See Instructions, 1/2 tab(s) Oral Daily, Refills(s) 0 Start Date: 05/25/22 Status: Ordered Start: 08-27-2021 take 5 mg by mouth once daily amlodipine 5 mg, Oral, Daily, Refills(s) 0 Start Date: 12/21/22 Status: Ordered take 1 tablet by li th once daily amLODIPine Besylate 10 MG Oral Tablet TAKE 1 TABLET DAILY DIRECTED. Quantity: 90 Refills: 3 Ordered: 22-Jul-2021 DO Active Aspir-81 81 MG (5 sources) Aspir-81 81 MG Orally Once a day Active aspirin 81 mg delayed release oral tablet (20 sources) Platelet Aggregation Inhibitor, Nonsteroidal Anti-inflammatory Drug Start: 05-25-2022 take 1 tablet by mouth once daily aspirin 81 mg Oral EC Tab 81 mg = 1 tab(s), Oral, Daily, Refills(s) 0 Start Date: 05/25/22 Status: Ordered biotin 1 mg oral tablet (17 sources) take 1 tablet by mouth every twenty-four hours Biotin 1000 MCG 1 tablet Orally Once a day Active take 1 tablet by li th every twenty-four hours Biotin 1000 MCG 1 tablet Orally Once a day Active Biotin 1000 MCG Oral Tablet TAKE DIRECTED PER PACKAGE INSTRUCTIONS. Quantity: 0 Refills: 0 Ordered: 22-Jul-2021 DO Active Biotin Active calcium carbonate 1500 mg oral tablet (4 sources) take 1 tablet by li th every twenty-four hours Calcium 600 MG 1 tablet with meals Orally Once a day Active take 1 tablet by li th every twenty-four hours Calcium 600 MG 1 tablet with meals Orally Once a day Active canagliflozin (1 source) Sodium-Glucose Cotransporter 2 Inhibitor Invokana Activ e cinnamon bark 500 mg oral capsule (13 sources) take 500 mg by mouth once daily Cinnamon 500 MG as directed Orally ONCE A DAY Active cinnamon preparation 500 mg oral tablet (4 sources) Non-Standardized Food Allergenic Extract take 500 mg by mouth once daily Cinnamon 500 MG as directed Orally ONCE A DAY Active Cinnamon Active clopidogrel 75 mg oral tablet (20 sources) [id number] Platelet Inhibitor Start: 12-11-2020 End: 04-29-2023 take 1 tablet by mouth once daily clopidogrel 75 mg Tab 75 mg = 1 tab(s), Oral, Daily, Refills(s) 0 Start Date: 05/25/22 Status: Ordered Foltanx oral tablet (14 sources) Start: 03-30-2023 Foltanx oral tablet 1 tab(s), Oral, Daily, 90 tab(s), Refill(s) 0, [facility] #[id number], 158, cm, 03/30/23 10:02:00 EST, Height/Length Dosing, 82.6, kg, 03/30/23 10:02:00 EST, Weight Dosing Start Date: 03/30/23 Status: Ordered Start: 12-22-2022 Foltanx oral t ablet 1 tab(s), Oral, Daily, 90 tab(s), Refill(s) 0, [facility] #[id number], 158, cm, 12/21/22 13:46:00 EST, Height/Length Dosing, 81.6, kg, 12/21/22 13:46:00 EST, Weight Dosing Start Date: 12/22/22 Status: Ordered Freestyle Sam 2 Flash Glucose Monitoring 14 Day System (Sensor) (5 sources) Start: 08-17-2023 Freestyle Libr e 2 Flash Glucose Monitoring 14 Day System (Sensor) Freestyle Sam 2 Flash Glucose Monitoring 14 Day System (Sensor), See Instructions, 6 EA, 0, Freestyle Sam 2 Flash Glucose Monitoring 14 Day System (Sensor). Replace sensor every 14 days., [facility], Supply, 158, cm, 07/20/23 13:42:00 EDT, Height/Length Dosing, 79.3, kg, 07/20/23 13:55:00 EDT, Weight Dosing Start Date: 08/17/23 Status: Ordered Start: 04-20-2023 Freestyle Libr e 2 Flash Glucose Monitoring 14 Day System (Sensor) Freestyle Sam 2 Flash Glucose Monitoring 14 Day System (Sensor), See Instructions, 6 EA, 0, Freestyle Sam 2 Flash Glucose Monitoring 14 Day System (Sensor). Replace sensor every 14 days., [facility] #[id number], Supply, 158, cm, 03/30/23 10:02:00 EST, Height/Length Dosing, 82.6, kg, 03/30/23 10:02:00 EST, Weight Dosing Start Date: 04/20/23 Status: Ordered HumaLOG KwikPen (1 source) HumaLOG KwikPen Active 3 ml insulin glargine 100 unt/ml pen injector (20 sources) Insulin Analog Start: 10-21-2022 Lantus Solostar Pen 100 units/mL subcutaneous solution 15 unit(s), SubCutaneous, Once a day (at bedtime), # 15 mL, Refills(s) 3, Pharmacy: [facility] ([facility]), 157.5, cm, 10/05/22 16:38:00 EDT, Height/Length Dosing, 82.4, kg, 10/05/22 16:38:00 EDT, Weight Dosing Start Date: 10/21/22 Status: Ordered Start: 05-25-2022 Lantus Solosta r Pen 100 units/mL subcutaneous solution 15 unit(s), SubCutaneous, Once a day (at bedtime), Refills(s) 0 Start Date: 05/25/22 Status: Ordered insulin glargine (Lantus U-100 Insulin) 100 unit/mL injection Inject under the skin. 0 Active inject 15 [IU] by sandhu bcutaneous injection once daily at bedtime Lantus 100 UNIT/ML 15 units Subcutaneous qhs Active inject 20 [IU] by sandhu bcutaneous injection once daily at bedtime Lantus 100 UNIT/ML 20 units Subcutaneous qhs Active 3 ml insulin lispro 100 unt/ml pen injector (20 sources) Insulin Analog Start: 12-01-2022 HumaLOG KwikPe n 100 units/mL injectable solution See Instructions, AC & HS coverage 150-200 2U, 201-250 4U, 251-300 6U. 301-350 8U. 351-400 10U with carb coverage, # 15 EA, Refills(s) 3, Pharmacy: [facility] ([facility]), 157.5, cm, 10/05/22 16:38:00 EDT, Height/Length Dosing, 82.4, kg, 10/05/22 16:38:00 EDT, Weight Dosing Start Date: 12/01/22 Status: Ordered Start: 05-25-2022 HumaLOG KwikPe n 100 units/mL injectable solution See Instructions, AC & HS coverage 150-200 2U, 201-250 4U, 251-300 6U. 301-350 8U. 351-400 10U with carb coverage, Refills(s) 0 Start Date: 05/25/22 Status: Ordered HumaLOG KwikPen Insulin 100 unit/mL injection Inject under the skin. 0 Active HumaLOG KwikPen 100 UNIT/ML as directed Subcutaneous SLIDING SCALE Active A-Jlpcfrgmaisx-L6-B12 3-35-2 MG (4 sources) take 1 tablet by mouth twice daily V-Dbzbjpuqwhvy-Q3-B12 3-35-2 MG 1 tablet Orally Twice a day Active latanoprost 0.05 mg/ml ophthalmic solution (2 sources) Prostaglandin Analog Start : 07-19 latanoprost Opth 0.005% Gunjan 1 drop(s), INSERT 1 drop IN BOTH EYES AT BEDTIME Start Date: 07/20/23 Status: Ordered losartan potassium 100 mg oral tablet (20 sources) Angiotensin 2 Receptor Feng Start : 07-13 take 1 tablet by mouth once daily losartan 100 mg Tab See Instructions, TAKE 1 TABLET BY MOUTH DAILY, # 90 tab(s), Refills(s) 3, Pharmacy: [facility], 158, cm, 06/29/23 10:10:00 EDT, Height/Length Dosing, 79.5, kg, 06/29/23 10:10:00 EDT, Weight Dosing Start Date: 07/14/23 Status: Ordered Start: 05-25-2022 take 1 tablet by li th once daily losartan 100 mg Tab 100 mg = 1 tab(s), Oral, Daily, # 90 tab(s), Refills(s) 1, Pharmacy: [facility], 158, cm, 12/21/22 13:46:00 EST, Height/Length Dosing, 81.6, kg, 12/21/22 13:46:00 EST, Weight Dosing Start Date: 02/22/23 Status: Ordered Losartan Potassi um 50 MG Orally qhs Active lutein 25 mg / zeaxanthin 5 mg oral capsule (13 sources) Lutein-Zeaxanthi n 25-5 MG as directed Orally ONCE A DAY Active Lutein-Zeaxanthi n 25-5 MG as directed Orally ONCE A DAY Active Lutein-Zeaxanthi n Active meclizine hydrochloride 12.5 mg oral tablet (20 sources) Antiemetic Start: 05-25-2022 take 1 tablet by mouth three times daily as needed for dizziness meclizine 12.5 mg Tab 12.5 mg = 1 tab(s), Oral, TID, as needed for dizziness, Refills(s) 0 Start Date: 05/25/22 Status: Ordered Meclizine HCl Ac tive Multivitamin preparation (5 sources) take 1 tablet by li th once daily Multivitamin - 1 tablet Orally Once a day Active Multivitamin Act tra nitroglycerin 0.4 mg sublingual tablet (20 sources) Nitrate Vasodilator Start: 03-30-2023 NitroStat 0.4 mg Tab See Instructions, use as needed for chest pain, # 25 tab(s), Refills(s) 0, Pharmacy: [id number], 158, cm, 03/30/23 10:02:00 EST, Height/Length Dosing, 82.6, kg, 03/30/23 10:02:00 EST, Weight Dosing Start Date: 03/30/23 Status: Ordered Start: 05-25-2022 NitroStat 0.4 mg Tab See Instructions, use as needed for chest pain, Refills(s) 0 Start Date: 05/25/22 Status: Ordered nitroglycerin (N itrostat) 0.[address] 1 tablet (0.4 mg) under the tongue every 5 minutes if needed for chest pain. 0 Active Nitroglycerin Ac tive [place] (20 sources) Start: 08-11-2023 [place], See Instructions, 3 EA, 3, To be used with admin. of insulin QID. Dx: E11. 1ea equals 1box, [facility], Supply, 158, cm, 07/20/23 13:42:00 EDT, Height/Length Dosing, 79.3, kg, 07/20/23 13:55:00 EDT, Weight Dosing Start Date: 08/11/23 Status: Ordered Start: 02-22-2023 [place], See Instructions, 12 EA, 1, To be used with admin. of insulin QID. Dx: E11.22 1 EA equals 1box, [facility], Supply, 158, cm, 12/21/22 13:46:00 EST, Height/Length Dosing, 81.6, kg, 12/21/22 13:46:00 EST, Weight Dosing Start Date: 02/22/23 Status: Ordered Start: 02-22-2023 [place], See Instructions, 1 EA, 1, To be used with admin. of insulin QID. Dx: E11.22 1ea equals 1box, [id number], Supply, 158, cm, 12/21/22 13:46:00 EST, Height/Length Dosing, 81.6, kg, 12/21/22 13:46:00 EST, Weight Dosing Start Date: 02/22/23 Status: Ordered Start: 01-05-2023 [place], See Instructions, 300 EA, 1, To be [...] Weight Dosing Start Date: 12/17/22 Status: Ordered Januvia Active Ticagrelor (1 source) Brilinta Active traZODone hydrochloride 50 mg oral tablet (8 sources) Serotonin Reuptake Inhibitor Start: take 0.5 tablet by mouth once daily at bedtime traZODONE 50 mg Tab See Instructions, TAKE ONE-HALF TABLET BY MOUTH ONCE DAILY AT BEDTIME, # 45 tab(s), Refills(s) 3, Pharmacy: [facility], 158, cm, 07/20/23 13:42:00 EDT, Height/Length Dosing, 79.3, kg, 07/20/23 13:55:00 EDT, Weight Dosing Start Date: 09/07/23 Status: Ordered Start: 06-29-2023 traZODONE 50 m g Tab 25 mg = 0.5 tab(s), Oral, Once a day (at bedtime), # 45 tab(s), Refills(s) 0, Pharmacy: [facility], 158, cm, 06/29/23 10:10:00 EDT, Height/Length Dosing, 79.5, kg, 06/29/23 10:10:00 EDT, Weight Dosing Start Date: 06/29/23 Status: Ordered Start: 06-07-2023 traZODONE 50 m g Tab 25 mg = 0.5 tab(s), Oral, Once a day (at bedtime), # 15 tab(s), Refills(s) 0, Pharmacy: [facility] #[id number], 158, cm, 03/30/23 10:02:00 EST, Height/Length Dosing, 82.6, kg, 03/30/23 10:02:00 EST, Weight Dosing Start Date: 06/07/23 Status: Ordered Start: 03-30-2023 traZODONE 50 m g Tab 25 mg = 0.5 tab(s), Oral, Once a day (at bedtime), # 15 tab(s), Refills(s) 0, Pharmacy: [id number], 158, cm, 03/30/23 10:02:00 EST, Height/Length Dosing, 82.6, kg, 03/30/23 10:02:00 EST, Weight Dosing Start Date: 04/28/23 Status: Ordered take 0.5 tablet by m outh once daily at bedtime traZODone (Desyrel) 50 mg tablet Take 0.5 tablets (25 mg) by mouth once daily at bedtime. 0 Active Completed/Discontinued Medications Medication Drug Class(es) Dates Sig (Normalized) Sig (Original) amitriptyline hydrochloride 25 mg oral tablet (5 sources) Tricyclic Antidepressant take 1 tablet by mouth at bedtime Amitriptyline HCl - 25 MG Oral Tablet TAKE 1 TABLET AT BEDTIME. Quantity: 0 Refills: 0 Ordered: 22-Jul-2021 DO Active Amitriptyline HC l 50 MG 2 Orally qhs Active Calcium (9 sources) Phosphate Binder, Calcium Calciu m 600 TABS TAKE 1 TABLET DAILY. Quantity: 0 Refills: 0 Ordered: 05-Dec-2021 DO Active Calcium Active Ketorolac (8 sources) Nonsteroidal Anti-inflammatory Drug, Cyclooxygenase Inhibitor Start: 04-20-2019 Toradol p er 15 mg Apr, 15 mg Start: 01-09-2018 Toradol per 15 mg Jan, 30 mg R-Xwrkzxgyuulh-S4-B12 3-35-2 MG Oral Tablet (8 sources) take 1 tablet by mouth once daily T-Fedvibjprpuu-T5-B12 3-35-2 MG Oral Tablet Take 1 tablet daily Quantity: 0 Refills: 0 Ordered: 22-Jul-2021 DO Active T-Wantejuugmvo-B8-B12 3-35-2 MG TABS (4 sources) B-Nzvldxqwcnej-S 6-B12 3-35-2 MG TABS Take 1 tablet daily Quantity: 0 Refills: 0 Ordered: 22-Jul-2021 DO Active melatonin 10 mg oral capsule (12 sources) take 1 capsule by mouth at bedtime [facility] Melatonin 10 MG Oral [...] extended release oral tablet (5 sources) beta-Adrenergic Feng Start: 08-27-2021 Metopr olol Succinate ER 50 [...] daily Quantity: 90 Refills: 3 Ordered: 04-Feb-2021 Gary Hilliard Start : 04-Feb-2021 Active Metoprolol Succi sadie Active Multi Vitamin TABS (8 sources) Multi Vitamin TA BS TAKE 1 TABLET DAILY. Quantity: 0 Refills: 0 Ordered: 05-Dec-2021 DO Active Triamcinolone (8 sources) Corticosteroid Start: 04-20-2019 KENALOG - 10 m g Apr, 40 mg Start: 12-05-2018 KENALOG - 10 m g Nov, 40 mg Problems Active Problems Problem Classification Problem Date Documented Date Episodic/Chronic Adjustment disorders (20 sources) Adjustment disorder; Translations: [Prolonged grief disorder] 12-28-2022 Chronic Anxiety disorders (15 sources) Complex posttraumatic stress disorder; Translations: [Posttraumatic stress disorder] Onset: 09-15-2023 01-04-2023 Chronic Cardiac dysrhythmias (18 sources) Ventricular premature beats; Translations: [Other premature beats] Onset: 02-22-2023 04-29-2023 Chronic Comment on above: noted in 04/29/2023 Cardiology Consult Note page 4. added per [facility] policy. Chronic kidney disease (20 sources) Chronic kidney disease stage 3; Translations: [Chronic kidney disease, stage 3 unspecified] Onset: 03-30-2023 05-25-2022 Chronic Comment on above: linked HTN with CKD per [facility] policy. Conditions associated with dizziness or vertigo (13 sources) Vertigo; Translations: [Dizziness and giddiness] Onset: 02-22-2023 02-22-2023 Episodic Coronary atherosclerosis and other heart disease (19 sources) Coronary arteriosclerosis; Translations: [Coronary atherosclerosis of unspecified type of vessel, nooksack or graft] Onset: 02-22-2023 04-29-2023 Chronic Comment on above: noted in 04/29/2023 Cardiology Consult Note page 3. added per [facility] policy. Diabetes mellitus with complications (20 sources) Renal disorder due to type 1 diabetes mellitus; 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] Onset: 01-10-2022 Chronic Comment on above: linked DM with gastr oparesis per [facility] policy. Diabetes mellitus without complication (20 sources) Diabetes mellitus; Translations: [Diabetes mellitus without mention of complication, type II or unspecified type, not stated as uncontrolled] Onset: 04-06-2022 Chronic Comment on above: linked DM with CKD p er OP [facility] policy. linked DM with HLD p er [facility] policy. Disorders of lipid metabolism (20 sources) Hyperlipidemia; Translations: [Other and unspecified hyperlipidemia] Onset: 01-07-2022 Chronic Esophageal disorders (18 sources) Gastroesophageal reflux disease 05-25-2022 Chronic Essential hypertension (20 sources) Benign essential hypertension; Translations: [Benign essential hypertension] Onset: 02-22-2023 Chronic Comment on above: noted in 04/29/2023 Cardiology Consult Note page 3. added per [facility] policy. Hypertension with complications and secondary hypertension (1 source) Hypertensive chronic kidney disease with stage 1 through stage 4 chronic kidney disease, or unspecified chronic kidney disease; Translations: [HTN CKD W/STAGE 1-4 CKD/UNS CKD] Onset: 04-23-2023 Chronic Other bone disease and musculoskeletal deformities (13 sources) Osteopenia 01-06-2023 Episodic Other diseases of kidney and ureters (1 source) Cyst of kidney, acquired; Translations: [CYST OF KIDNEY ACQUIRED] Onset: 05-31-2022 Episodic Other disorders of stomach and duodenum (18 sources) Gastroparesis syndrome 05-25-2022 Episodic Other nutritional; endocrine; and metabolic disorders (13 sources) Obesity; Translations: [Obesity, unspecified] Chronic Other nutritional; endocrine; and metabolic disorders (4 sources) Body mass index 30+ - obesity; Translations: [Body mass index (BMI) 32.0-32.9, adult] Onset: 04-29-2023 04-29-2023 Chronic Other nutritional; endocrine; and metabolic disorders (2 sources) Body mass index (BMI) 32.0-32.9, adult; Translations: [Body mass index (BMI) 32.0-32.9, adult] Onset: 04-29-2023 Chronic Residual codes; unclassified (7 sources) Insomnia 03-30-2023 Episodic Unclassified (3 sources) CHRN KIDNEY DISEASE STG 3 UNSP; Translations: [CHRN KIDNEY DISEASE STG 3 UNSP] Onset: 08-08-2021 Unclassified (2 sources) Long-term current use of insulin 06-28-2023 Comment on above: Current Medication L ist includes Lantus. added per [facility] policy. Viral infection (5 sources) Postherpetic neuralgia; Translations: [Other postherpetic nervous system involvement] Episodic Past or Other Problems Problem Classification Problem Date Documented Da te Episodic/Chronic Chronic kidney disease (4 sources) Chronic kidney disease; Translations: [CHRONIC KIDNEY DISEASE STAGE 3B] Onset: 05-31-2022 Mood disorders (1 source) Mood disorders Onset: 06-19-2022 08-03-2022 Other injuries and conditions due to external causes (1 source) Unspecified injury of lower back, initial encounter; Translations: [Injury of back, initial encounter S39.92XA] Onset: 11-18-2020 Resolved: 11-18-2020 Episodic Other screening for suspected conditions (not mental disorders or infectious disease) (4 sources) Encounter for screening mammogram for malignant neoplasm of breast; Translations: [ENC SCR MAMMO MALIG NEOPLASM BREAST] Onset: 10-24-2022 Episodic Unclassified (12 sources) Never smoked tobacco; Translations: [Never smoker] Unclassified (1 source) CHRN KIDNEY DISEASE STG 3 UNSP; Translations: [CHRN KIDNEY DISEASE STG 3 UNSP] Onset: 08-06-2021 Unclassified (1 source) Onset: 04-29-2023 04-29-2023 Unclassified (1 source) Prolonged grief disorder; Translations: [Prolonged grief disorder] Onset: 09-15-2023 Results Test Name Value Interpretation Reference Range Facil ity Ambulatory Visit Summaryon 0 07-20-2023 Ambulatory Visit Summary OLIVA MCNULTY :1950 Visit Date:07/20/2023 Ambulatory Visit Instructions Your Diagnosis BMI 31.0-31.9,adult Your Care Team Attending Physician - DOMINIC ORTEGA CNP Primary Care Physician - Dewayne Richey MD This Is Your Medications List Misc Prescription (Freestyle Sam 2 Flash Glucose Monitoring 14 Day System (Sensor)) Misc Prescription ([place]) Misc Prescription ([place]) amlodipine aspirin (aspirin 81 mg Oral EC Tab) insulin glargine (Lantus Solostar Pen 100 units/mL subcutaneous solution) insulin lispro (HumaLOG KwikPen 100 units/mL injectable solution) latanoprost ophthalmic (latanoprost Opth 0.005% Gunjan) losartan (losartan 100 mg Tab) nitroglycerin (NitroStat 0.4 mg Tab) rosuvastatin (rosuvastatin 20 mg Tab) sitagliptin (Januvia 100 mg Tab) trazodone (traZODONE 50 mg Tab) Procedures Performed Appendectomy, Arthroscopy, Cataracts, Cholecystectomy, Tonsillectomy and adenoidectomy. Discharge Vitals Temperature (Temporal Artery) 36.8 ?C Heart Rate (Peripheral) 79 Respiratory Rate 15 Blood Pressure 136/84 Height 158 cm Height 62 in Weight 79.3 kg Weight 174.46 lb BMI 31.77 What to do next Scheduled Follow-Up Appointments Wednesday 10:00 AM EDT With: Dewayne Richey MD Where: [facility] Normal [address] [place] [phone]- \.br\ Medications\.br \ What How Much When Why Instructions\.b r\ Unchanged amlodipine 5 Milligram By [...] 351-400 10U with carb coverage \.br\ Unchanged latanoprost ophthalmic (latanoprost Opth 0.005% Gunjan) 1 Drops INSERT 1 drop IN BOTH EYES AT BEDTIME \.br\ Unchanged losartan (losartan 100 mg Tab) See instructions TAKE 1 TABLET BY MOUTH DAILY \.br\ Unchanged Misc Prescription (Freestyle Sam 2 Flash Glucose Monitoring 14 Day System (Sensor)) See instructions Osteopenia Long-term insulin use DM type 2 causing ESRD Freestyle Sam 2 Flash Glucose Monitoring 14 Day System (Sensor). Replace sensor every 14 days. \.br\ Unchanged Misc Prescription ([place]) See instructions To be used with admin. of insulin QID. Dx: E11 1ea equals 1box \.br\ Unchanged Misc Prescription ([place]) See instructions To be used with admin. of insulin QID. Dx: E11 1 EA equals 1box \.br\ Unchanged nitroglycerin (NitroStat 0.4 mg Tab) See instructions use as needed for chest pain \.br\ Unchanged rosuvastatin (rosuvastatin 20 mg Tab) 1 Tablets By Mouth Every day\.br\ Unchanged sitagliptin (Januvia 100 mg Tab) See instructions TAKE 1 TABLET BY MOUTH DAILY \.br\ Unchanged trazodone (traZODONE 50 mg Tab) 0.5 Tablets By Mouth Once a day (at bedtime) DM type 2 causing CKD stage 3 BMI 33.0-33.9,adult Class 1 obesity due to excess calories in adult Nonsmoker GERD (gastroesophage al reflux disease) Insomnia\.br\ Allergies\.br\ No Known Medication Allergies\.br\ Problems\.br\ Ongoing - Any problem that you are currently receiving treatment for.\.br\ Adjustment disorder with disturbance of emotion\.br\ Benign essential HTN\.br\ Benign hypertension with chronic kidney disease, stage III\.br\ BMI 31.0-31.9,adult \.br\ Chronic kidney disease (CKD), stage III (moderate)\.br\ 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 br\ GERD (gastroesophage al reflux disease)\.br\ Hypercholestero lemia\.br\ Insomnia\.br\ Long-term insulin use\.br\ Osteopenia\.br\ PVC's (premature ventricular contractions)\. br\ Type 2 diabetes mellitus with hypercholestero lemia\.br\ Type 2 diabetes mellitus with stage 3 chronic kidney disease\.br\ Patient Survey\.br\ You may receive a survey via text or e-mail asking about your office visit. Please share your experience with us by completing your survey. We appreciate your feedback and thank you for choosing us for your care.\.br\ \.br\ [facility] Family Medicine Office/Clini c Noteon 07-20-2023 Family Medicine Office/Clinic Note HPI Staff Oliva Mcnulty 73 presents today for acute visit for URI Respiratory C/O: Duration: two week Body aches: no Chest congestion: no Chills: yes Cough: no Ear complaints: no Eye itching/watering: yes Fever: no Headache: no Nasal congestion: no Nasal discharge: yes Poor appetite: yes Reduced activity: yes Sinus pain/pressure: no Sneezing: no Sputum production: no Wheezing: no Ill contacts: no Remedies tried: _ _ _ NyQuil and DayQuil History of Present Illness 73 [address] old patient of Dr. Parekh presents today for an acute visit. She reports about two weeks ago she started with a cold. She experienced a sore throat, cough, and a runny nose. She took OTC nyquil & dayquil and thought she had conquer the cold but it came back yesterday and today she feels terrible. SHe has a non-productive cough, poor appetite , and nasal drainage. SHe again tried Nyquil last PM but it has not done anything. She has been monitoring her blood sugar and it has been < 150. Review of Systems PHQ Score Initial Depression Screen Score: 2 SCORE Constitutional: no fever, no chills, no sweats, no weakness Skin: no Jaundice, no rash, no lesions, nopetechiae ENMT: no ear pain, mild sore throat, no congestion, no hoarseness Respiratory: no shortness of breath, moderate cough, no orthopnea, no wheezing Cardiovascular: no chest pain, no palpitations, no edema Psychiatric: no sleeping problems, no irritability, no mood swings/depression. Additional ROS info: Except as noted in the above Review of Systems and in the History of Present Illness all other systems have been reviewed and are negative or noncontributory. Physical Exam Vitals & Measurements T: 36.8 ?C(Temporal Artery) HR: 79(Peripheral) RR: 15 BP: 136/84 SpO2: 96% HT: 62 in HT: 158 cm WT: 79.3 kg WT: 174.46 lb BMI: 31.77 General: alert, no acute distress ENMT: TM's clear, oral mucosa moist, yes pharyngeal erythema or exudate, bilateral submaxillary lymph enlargement Cardiovascular: regular rate and rhythm, normal peripheral perfusion Respiratory: Lungs diminished in the bases CTA, respirations non labored Extremities: no deformity, no trauma Neurological: oriented x 4, LOC appropriate for age speech normal Assessment/Plan 1. Bacterial URI (J06.9: Acute upper respiratory infection, unspecified) Encouraged to increase fluids Monitor blood sugars f/u if no improvement in 3-5 days Ordered: azithromycin, 250 mg = 1 tab(s), Oral, As Directed, as directed on package labeling, X 5 day(s), # 6 tab(s), Refills(s) 0, Pharmacy: [facility], 158, cm, 07/20/23 13:42:00 EDT, Height/Length Dosing, 79.3, kg, 07/20/23 13:55:00 EDT, Weight Dosing benzonatate, 100 mg = 1 cap(s), Oral, TID, X 7 day(s), # 21 cap(s), Refills(s) 0, Pharmacy: [facility], 158, cm, 07/20/23 13:42:00 EDT, Height/Length Dosing, 79.3, kg, 07/20/23 13:55:00 EDT, Weight Dosing 3. BMI 31.0-31.9,adult (Z68.31: Body mass index [BMI] 31.0-31.9, adult) The standard range for ages 18 and older is >=18.5 and < 25 kg/m2. Your BMI today was above this range, this falls in the overweight to obese category and there are medical benefits to weight loss. We can offer counselling, referral, and/or medical support in addressing this problem. Your BMI and weight management will be followed at subsequent visits. Chronic kidney disease, stage 3 unspecified (N18.30: Chronic kidney disease, stage 3 unspecified) Other specified bacterial agents as the cause of diseases classified elsewhere (B96.89: Other specified bacterial agents as the cause of diseases classified elsewhere) Follow-up No qualifying data available Patient Education Upper Respiratory Infection, Adult, Orvy-db-Upoa Problem List/Past Medical History Ongoing Adjustment disorder with disturbance of emotion Benign essential HTN Benign hypertension with chronic kidney disease, stage III BMI 31.0-31.9,adult Chronic kidney disease (CKD), stage III (moderate) 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 Complex posttraumatic stress disorder Coronary artery disease involving nooksack coronary artery without angina pectoris Diabetic gastroparesis associated with type 2 diabetes mellitus Diabetic retinopathy DM type 2 causing CKD stage 3 Gastroparesis GERD (gastroesophageal reflux disease) Hypercholesterolemia Insomnia Long-term insulin use Osteopenia PVC's (premature ventricular contractions) Type 2 diabetes mellitus with hypercholesterolemia Type 2 diabetes mellitus with stage 3 chronic kidney disease Historical No qualifying data Procedure/Surgical History Appendectomy, Arthroscopy, Cataracts, Cholecystectomy, Tonsillectomy and adenoidectomy. Medications amlodipine, 5 mg, Oral, Daily aspirin 81 mg Oral EC Tab, 81 mg= 1 tab(s), Oral, Daily azithromycin 250 mg Tab 5-day Dose Pack (Z-Issac), 250 mg= 1 tab(s), Oral, As Directed Freestyle Sam 2 Flash Glucose Monitoring 14 Day System (Se (more content not included)... Normal [facility] Comment on above: Result Comment: Elec tronically Signed By: DOMINIC ORTEGA CNP\.br\Date and Time Signed: 07/20/23 15:16 EDT Patient Educationon 07-20-19 Patient Education Infectious Disease Upper Respiratory Infection, Adult An upper respiratory infection (URI) affects the nose, throat, and upper airways that lead to the lungs. The most common type of URI is often called the common cold. URIs usually get better on their own, without medical treatment. What are the causes? A URI is caused by a germ (virus). You may catch these germs by: ? Breathing in droplets from an infected person's cough or sneeze. ? Touching something that has the germ on it (is contaminated) and then touching your mouth, nose, or eyes. What increases the risk? You are more likely to get a URI if: ? You are very young or very old. ? You have close contact with others, such as at work, school, or a health care facility. ? You smoke. ? You have long-term (chronic) heart or lung disease. ? You have a weakened disease-fighting system (immune system). ? You have nasal allergies or asthma. ? You have a lot of stress. ? You have poor nutrition. What are the signs or symptoms? ? Runny or stuffy (congested) nose. ? Cough. ? Sneezing. ? Sore throat. ? Headache. ? Feeling tired (fatigue). ? Fever. ? Not wanting to eat as much as usual. ? Pain in your forehead, behind your eyes, and over your cheekbones (sinus pain). ? Muscle aches. ? Redness or irritation of the eyes. ? Pressure in the ears or face. How is this treated? URIs usually get better on their own within 7?10 days. Medicines cannot cure URIs, but your doctor may recommend certain medicines to help relieve symptoms, such as: ? Njni-gra-fobkecq cold medicines. ? Medicines to reduce coughing (cough suppressants). Coughing is a type of defense against infection that helps to clear the nose, throat, windpipe, and lungs (respiratory system). Take these medicines only as told by your doctor. ? Medicines to lower your fever. Follow these instructions at home: Activity ? Rest as needed. ? If you have a fever, stay home from work or school until your fever is gone, or until your doctor says you may return to work or school. ? You should stay home until you cannot spread the infection anymore (you are not contagious). ? Your doctor may have you wear a face mask so you have less risk of spreading the infection. Relieving symptoms ? Rinse your mouth often with salt water. To make salt water, dissolve ??1 tsp (3?6 g) of salt in 1 cup (237 mL) of warm water. ? Use a cool-mist humidifier to add moisture to the air. This can help you breathe more easily. Eating and drinking ? Drink enough fluid to keep your pee (urine) pale yellow. ? Eat soups and other clear broths. General instructions ? Take bwzn-cnv-lyudhko and prescription medicines only as told by your doctor. ? Do not smoke or use any products that contain nicotine or tobacco. If you need help quitting, ask your doctor. ? Avoid being where people are smoking (avoid secondhand smoke). ? Stay up to date on all your shots (immunizations), and get the flu shot every year. ? Keep all follow-up visits. How to prevent the spread of infection to others ? Wash your hands with soap and water for at least 20 seconds. If you cannot use soap and water, use hand audiometrist. ? Avoid touching your mouth, face, eyes, or nose. ? Cough or sneeze into a tissue or your sleeve or elbow. Do not cough or sneeze into your hand or into the air. Contact a doctor if: ? You are getting worse, not better. ? You have any of these: ? A fever or chills. ? Brown or red mucus in your nose. ? Yellow or brown fluid (discharge)coming from your nose. ? Pain in your face, especially when you bend forward. ? Swollen neck glands. ? Pain when you swallow. ? White areas in the back of your throat. Get help right away if: ? You have shortness of breath that gets worse. ? You have very bad or constant: ? Headache. ? Ear pain. ? Pain in your forehead, behind your eyes, and over your cheekbones (sinus pain). ? Chest pain. ? You have long-lasting (chronic) lung disease along with any of these: ? Making high-pitched whistling sounds when you breathe, most often when you breathe out (wheezing). ? Long-lasting cough (more than 14 days). ? Coughing up blood. ? A change in your usual mucus. ? You have a stiff neck. ? You have changes in your: ? Vision. ? Hearing. ? Thinking. ? Mood. These symptoms may be an emergency. Get help right away. Call 911. ? Do not wait to see if the symptoms will go away. ? Do not drive yourself to the hospital. Summary ? An upper respiratory infection (URI) is caused by a germ (virus). The most common type of URI is often called the common cold. ? URIs usually get better within 7?10 days. ? Take gupz-dgm-nmxgfzl and prescription medicines only as told by your doctor. This information is not intended to replace advice given to you by your health care (more content not included)... Normal [facility] Ambulatory Visit Summaryon 0 06-29-2023 Ambulatory Visit Summary OLIVA MCNULTY :1950 Visit Date:06/29/2023 Ambulatory Visit Instructions Your Diagnosis Type 2 diabetes mellitus with stage 3 chronic kidney disease, DM type 2 causing CKD stage 3 Benign hypertension with chronic kidney disease, stage III Diabetic gastroparesis associated with type 2 diabetes mellitus Long-term insulin use Benign essential HTN Coronary artery disease involving [place]oksack coronary artery without angina pectoris PVC's (premature ventricular contractions) BMI 31.0-31.9,adult Class 1 obesity due to excess calories in adult Nonsmoker Adjustment disorder with disturbance of emotion Insomnia BMI 33.0-33.9,adult Chronic kidney disease, stage 3 unspecified GERD (gastroesophageal reflux disease) Your Care Team Attending Physician - Dewayne Richey MD Primary Care Physician - Dewayne Richey MD This Is Your Medications List trazodone (traZODONE 50 mg Tab) Contact prescribing physician if questions or concerns Misc Prescription (Freestyle Sam 2 Flash Glucose Monitoring 14 Day System (Sensor)) Misc Prescription ([place]) Misc Prescription ([place]) amlodipine aspirin (aspirin 81 mg Oral EC Tab) insulin glargine (Lantus Solostar Pen 100 units/mL subcutaneous solution) insulin lispro (HumaLOG KwikPen 100 units/mL injectable solution) losartan (losartan 100 mg Tab) meclizine (meclizine 12.5 mg Tab) multivitamin (Foltanx oral tablet) nitroglycerin (NitroStat 0.4 mg Tab) rosuvastatin (rosuvastatin 20 mg Tab) sitagliptin (Januvia 100 mg Tab) Procedures Performed Appendectomy, Arthroscopy, Cataracts, Cholecystectomy, Tonsillectomy and adenoidectomy. Discharge Vitals Temperature (Temporal Artery) 37.1 ?C Heart Rate (Peripheral) 68 Respiratory Rate 18 Blood Pressure 126/74 Height 158 cm Height 62 in Weight 79.5 kg Weight 174.9 lb BMI 31.85 What to do next Scheduled Follow-Up Appointments Wednesday 1:00 PM EDT With: Denia Ding Where: [facility] Wednesday 10:00 AM EDT With: Mat JIMENEZ, Dewayne Zhao Where: [facility] Normal [address] [place], [place] [phone]- \.br\ Medications\.br \ What How Much When Why Instructions\.b r\ Unchanged trazodone (traZODONE 50 mg Tab) 0.5 Tablets By Mouth Once a day (at bedtime) DM type 2 causing CKD stage 3 BMI 33.0-33.9,adult Class 1 obesity due to excess calories in adult Nonsmoker GERD (gastroesophage al reflux disease) Insomnia Pickup at [facility]\.br\ Unchanged amlodipine 5 Milligram By Mouth Every day Contact prescribing physician if questions or concerns \.br\ Unchanged aspirin (aspirin 81 mg Oral EC Tab) 1 Tablets By Mouth Every day Contact prescribing physician if questions or concerns \.br\ Unchanged insulin glargine (Lantus Solostar Pen 100 units/ mL subcutaneous solution) 15 Units Subcutaneous Once a day (at bedtime) Contact prescribing physician if questions or concerns \.br\ Unchanged insulin lispro (HumaLOG KwikPen 100 units/ mL injectable solution) See instructions AC & HS coverage 150-200 2U, 201-250 4U, 251-300 6U. 301-350 8U. 351-400 10U with carb coverage Contact prescribing physician if questions or concerns \.br\ Unchanged losartan (losartan 100 mg Tab) 1 Tablets By Mouth Every day Contact prescribing physician if questions or concerns \.br\ Unchanged meclizine (meclizine 12.5 mg Tab) 1 Tablets By Mouth 3 times a day as needed for dizziness Contact prescribing physician if questions or concerns \.br\ Unchanged Misc Prescription (Freestyle Sam 2 Flash Glucose Monitoring 14 Day System (Sensor)) See instructions Osteopenia Long-term insulin use DM type 2 causing ESRD Freestyle Sam 2 Flash Glucose Monitoring 14 Day System (Sensor). Replace sensor every 14 days. Contact prescribing physician if questions or concerns \.br\ Unchanged Misc Prescription ([place]) See instructions To be used with admin. of insulin QID. Dx: 1ea equals 1box Contact prescribing physician if questions or concerns \.br\ Unchanged Misc Prescription ([place]) See instructions To be used with admin. of insulin QID. Dx: 1 EA equals 1box Contact prescribing physician if questions or concerns \.br\ Unchanged multivitamin (Foltanx oral tablet) 1 Tablets By Mouth Every day Contact prescribing physician if questions or concerns \.br\ Unchanged nitroglycerin (NitroStat 0.4 mg Tab) See instructions use as needed for chest pain Contact prescribing physician if questions or concerns \.br\ Unchanged rosuvastatin (rosuvastatin 20 mg Tab) 1 Tablets By Mouth Every day Contact prescribing physician if questions or concerns \.br\ Unchanged sitagliptin (Januvia 100 mg Tab) See instructions TAKE 1 TABLET BY MOUTH DAILY Contact prescribing physician if questions or concerns \.br\ Pharmacy Information\.br \ [facility]: [address] [place], [place] [id number] [phone]\.br\ Allergies\.br\ Arthrotec (Unknown)\.br\ Problems\.br\ Ongoing - Any problem that you are currently receiving treatment for.\.br\ Adjustment disorder with disturbance of emotion\.br\ Benign essential HTN\.br\ Benign hypertension with chronic kidney disease, stage III\.br\ Chronic kidney disease (CKD), stage III (moderate)\.br\ 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 br\ GERD (gastroesophage al reflux disease)\.br\ Hypercholestero lemia\.br\ Insomnia\.br\ Long-term insulin use\.br\ Osteopenia\.br\ PVC's (premature ventricular contractions)\. br\ Type 2 diabetes mellitus with hypercholestero lemia\.br\ Type 2 diabetes mellitus with stage 3 chronic kidney disease\.br\ Patient Survey\.br\ You may receive a survey via text or e-mail asking about your office visit. Please share your experience with us by completing your survey. We appreciate your feedback and thank you for choosing us for your care.\.br\ \.br\ [facility] Family Medicine Office/Clini c Noteon 06-29-2023 Family Medicine Office/Clinic Note HPI Staff Oliva is a 72 year old female presenting for 3 month follow up DM, CKD Do you have any of the following symptoms? Foot Exam: not up to date Eye Exam: UTD and goes 07/13/23 Last A1C: Hgb A1C %: 6.4 % High (03/30/23 10:51:00) Statin: rosuvastatin questions/concerns: would like you to send trazadone 90 day supply to her mail away with refills History of Present Illness - See staff HPI. Review of Systems PHQ Score Initial Depression Screen Score: 2 SCORE Physical Exam Vitals & Measurements T: 37.1 ?C(Temporal Artery) HR: 68(Peripheral) RR: 18 BP: 126/74 SpO2: 99% HT: 62 in HT: 158 cm WT: 79.5 kg WT: 174.9 lb BMI: 31.85 General: alert, no acute distress ENMT: oral mucosa moist, Cardiovascular: regular rate and rhythm, normal peripheral perfusion Respiratory: Lungs CTA, respirations non labored Extremities: no deformity, no trauma Neurological: oriented x 4, LOC appropriate for age, CN II-XII intact, motor strength equal & normal bilaterally, speech normal Abdomen: Soft, Nontender, Non-distended, + BS Assessment/Plan 1. Type 2 diabetes mellitus with stage 3 chronic kidney disease, (E11.22: Type 2 diabetes mellitus with diabetic chronic kidney disease) - Doing well. - Checking an A1c today as she states she feels she has not been eating appropriately. - Wants to make sure her A1c is still at goal. - Follow up in 3 months DM type 2 causing CKD stage 3 Ordered: trazodone, 25 mg = 0.5 tab(s), Oral, Once a day (at bedtime), # 45 tab(s), Refills(s) 0, Pharmacy: [facility], 158, cm, 06/29/23 10:10:00 EDT, Height/Length Dosing, 79.5, kg, 06/29/23 10:10:00 EDT, Weight Dosing A1c POC 80420 Body Mass Index (BMI) documented 3008F Current tobacco non-user 1036F Depression Screening Negative 3352F Influenza immunization administered or previously received 4274F Most recent diastolic blood pressure <80 mm Hg 3078F Patient screen for fall risk: no falls in last year or 1 fall with no injury in last year 1101F Systolic BP <130 mm Hg (Most Recent) 3074F 2. Benign hypertension with chronic kidney disease, stage III (I12.9: Hypertensive chronic kidney disease with stage 1 through stage 4 chronic kidney disease, or unspecified chronic kidney disease) - Bps are at goal. - Labs in 3 months Ordered: Body Mass Index (BMI) documented 3008F Current tobacco non-user 1036F Depression Screening Negative 3352F Influenza immunization administered or previously received 4274F Most recent diastolic blood pressure <80 mm Hg 3078F Patient screen for fall risk: no falls in last year or 1 fall with no injury in last year 1101F Systolic BP <130 mm Hg (Most Recent) 3074F 3. Diabetic gastroparesis associated with type 2 diabetes mellitus (E11.43: Type 2 diabetes mellitus with diabetic autonomic (poly)neuropathy) - As per number 1. Ordered: Body Mass Index (BMI) documented 3008F Current tobacco non-user 1036F Depression Screening Negative 3352F Influenza immunization administered or previously received 4274F Most recent diastolic blood pressure <80 mm Hg 3078F Patient screen for fall risk: no falls in last year or 1 fall with no injury in last year 1101F Systolic BP <130 mm Hg (Most Recent) 3074F 4. Long-term insulin use (Z79.4: USP (current) use of insulin) - Diet and exercise advised Ordered: Body Mass Index (BMI) documented 3008F Current tobacco non-user 1036F Depression Screening Negative 3352F Influenza immunization administered or previously received 4274F Most recent diastolic blood pressure <80 mm Hg 3078F Patient screen for fall risk: no falls in last year or 1 fall with no injury in last year 1101F Systolic BP <130 mm Hg (Most Recent) 3074F 5. Benign essential HTN (I10: Essential (primary) hypertension) - As per number 2 Ordered: Body Mass Index (BMI) documented 3008F Current tobacco non-user 1036F Depression Screening Negative 3352F Influenza immunization administered or previously received 4274F Most recent diastolic blood pressure <80 mm Hg 3078F Patient screen for fall risk: no falls in last year or 1 fall with no injury in last year 1101F Systolic BP <130 mm Hg (Most Recent) 3074F 6. Coronary artery disease involving nooksack coronary artery without angina pectoris (I25.10: Atherosclerotic heart disease of nooksack coronary artery without angina pectoris) - No CP today. - Doing well Ordered: Body Mass Index (BMI) documented 3008F Current tobacco non-user 1036F Depression Screening Negative 3352F Influenza immunization administered or previously received 4274F Most recent diastolic blood pressure <80 mm Hg 3078F Patient screen for fall risk: no falls in last year or 1 fall with no injury in last year 1101F Systolic BP <130 mm Hg (Most Recent) 3074F 7. PVC's (premature ventricular contractions) (I49.3: Ventricular premature depolarization) - No issues at this time. Ordered: Body Mass Index (BMI) documented 3008F Current (more content not included)... Normal [facility] Comment on above: Result Comment: Elec tronically Signed By: Mat JIMENEZ, Dewayne Lynn.demarcus\Date and Time Signed: 06/29/23 10:38 EDT Consultation Noteon 05-04-19 Consultation Note [id number] 0TIFF [facility] Ambulatory Visit Summaryon 0 03-30-2023 Ambulatory Visit Summary BREEOLIVA MARTINEZ :1950 Visit Date:03/30/2023 Ambulatory Visit Instructions Your Diagnosis DM type 2 causing CKD stage 3 BMI 33.0-33.9,adult Class 1 obesity due to excess calories in adult Nonsmoker GERD (gastroesophageal reflux disease) Insomnia Chronic kidney disease, stage 3 unspecified Your Care Team Attending Physician - Dewayne Richey MD Primary Care Physician - Dewayne Richey MD This Is Your Medications List trazodone (traZODONE 50 mg Tab) Contact prescribing physician if questions or concerns Misc Prescription ([place]) Misc Prescription ([place]) amlodipine aspirin (aspirin 81 mg Oral EC [...] Cataracts, Cholecystectomy, Tonsillectomy and adenoidectomy. Discharge Vitals Temperature (Oral) 36.5 ?C Heart Rate (Peripheral) 66 Respiratory Rate 18 Blood Pressure 118/66 Height 158 cm Height 62 in Weight 82.6 kg Weight 181.72 lb BMI 33.09 What to do next Scheduled Follow-Up Appointments Wednesday 11:00 AM EST With: Denia Ding Where: [facility] Wednesday 10:00 AM EDT With: Dewayne Richey MD Where: [facility] Invalid Interpretation Code [address] [place] [address]- \.br\ You Need to Complete the Following\.br\ HgbA1c, Blood, Routine collect, 03/30/23, Order for future visit, Lab Collect, DM type 2 causing CKD stage 3 [facility] CHEMISTRYOrdered By: Bertha Chávez on 03-30-2023 HbA1c (Bld) [Mass fraction] 6.4 % High <=5.9% [facility] ChemAutoSS Family Medicine Office/Clini c Noteon 03-30-2023 Family Medicine Office/Clinic Note HPI Staff Oliva is a 72 year old female presenting for 6 month follow up dm Do you have any of the following symptoms? Foot Exam: none Eye Exam: UTD Last A1C: Hgb A1C %: 7 % High (10/05/22 17:13:00) Statin: rosuvastatin 20mg flu: UTD 12/21/22 questions/concerns: [facility] miguel a History of Present Illness Pt here for follow up. - No issues today. - Needs refills in meds. - BS have been good. - Some insomnia - Would like to try something for sleep. Review of Systems PHQ Score Initial Depression Screen Score: 1 SCORE Physical Exam Vitals & Measurements T: 36.5 ?C(Oral) HR: 66(Peripheral) RR: 18 BP: 118/66 SpO2: 98% HT: 62 in HT: 158 cm WT: 82.6 kg WT: 181.72 lb BMI: 33.09 General: alert, no acute distress ENMT: oral [...] mellitus with diabetic chronic kidney disease) - Will order labs. - Will adjust meds as needed Ordered: trazodone, 25 mg = 0.5 tab(s), Oral, Once a day (at bedtime), # 15 tab(s), Refills(s) 0, Pharmacy: [facility] #[id number], 158, cm, 03/30/23 10:02:00 EST, Height/Length Dosing, 82.6, kg, 03/30/23 10:02:00 EST, Weight Dosing Body Mass Index (BMI) documented 3008F Current tobacco non-user 1036F Depression Screening Negative 3352F HgbA1c Influenza immunization administered or previously received 4274F Most recent diastolic blood pressure <80 mm Hg 3078F Patient screen for fall risk: no falls in last year or 1 fall with no injury in last year 1101F Systolic BP <130 mm Hg (Most Recent) 3074F 2. BMI 33.0-33.9,adult (Z68.33: Body mass index [BMI] 33.0-33.9, adult) - BMI education given Ordered: trazodone, 25 mg = 0.5 tab(s), Oral, Once a day (at bedtime), # 15 tab(s), Refills(s) 0, Pharmacy: [facility] #[id number], 158, cm, 03/30/23 10:02:00 EST, Height/Length Dosing, 82.6, kg, 03/30/23 10:02:00 EST, Weight Dosing Body Mass Index (BMI) documented 3008F Current tobacco non-user 1036F Depression Screening Negative 3352F HgbA1c Influenza immunization administered or previously received 4274F Most recent diastolic blood pressure <80 mm Hg 3078F Patient screen for fall risk: no falls in last year or 1 fall with no injury in last year 1101F Systolic BP <130 mm Hg (Most Recent) 3074F 3. Class 1 obesity due to excess calories in adult (E66.09: Other obesity due to excess calories) - Diet and exercise advised Ordered: trazodone, 25 mg = 0.5 tab(s), Oral, Once a day (at bedtime), # 15 tab(s), Refills(s) 0, Pharmacy: [facility] #[id number], 158, cm, 03/30/23 10:02:00 EST, Height/Length Dosing, 82.6, kg, 03/30/23 10:02:00 EST, Weight Dosing Body Mass Index (BMI) documented 3008F Current tobacco non-user 1036F Depression Screening Negative 3352F HgbA1c Influenza immunization administered or previously received 4274F Most recent diastolic blood pressure <80 mm Hg 3078F Patient screen for fall risk: no falls in last year or 1 fall with no injury in last year 1101F Systolic BP <130 mm Hg (Most Recent) 3074F 4. Nonsmoker (Z78.9: Other specified health status) - Please stop smoking Ordered: trazodone, 25 mg = 0.5 tab(s), Oral, Once a day (at bedtime), # 15 tab(s), Refills(s) 0, Pharmacy: [facility] #[id number], 158, cm, 03/30/23 10:02:00 EST, Height/Length Dosing, 82.6, kg, 03/30/23 10:02:00 EST, Weight Dosing Body Mass Index (BMI) documented 3008F Current tobacco non-user 1036F Depression Screening Negative 3352F HgbA1c Influenza immunization administered or previously received 4274F Most recent diastolic blood pressure <80 mm Hg 3078F Patient screen for fall risk: no falls in last year or 1 fall with no injury in last year 1101F Systolic BP <130 mm Hg (Most Recent) 3074F 5. GERD (gastroesophageal reflux disease) (K21.9: Gastro-esophageal reflux disease without esophagitis) - Controlled without meds. Ordered: trazodone, 25 mg = 0.5 tab(s), Oral, Once a day (at bedtime), # 15 tab(s), Refills(s) 0, Pharmacy: [facility] #[id number], 158, cm, 03/30/23 10:02:00 EST, Height/Length Dosing, 82.6, kg, 03/30/23 10:02:00 EST, Weight Dosing HgbA1c 6. Insomnia (G47.00: Insomnia, unspecified) - Will try trazodone. Ordered: trazodone, 25 mg = 0.5 tab(s), Oral, Once a day (at bedtime), # 15 tab(s), Refills(s) 0, Pharmacy: [facility] #[id number], 158, cm, 03/30/23 10:02:00 EST, Height/Length Dosing, 82.6, kg, 03/30/23 10:02:00 EST, Weight Dosing Chronic kidney disease, stage 3 unspecified (N18.30: Chronic kidney disease, stage 3 unspecified) Orders: multivitamin, 1 tab(s), Oral, Daily, 90 tab(s), Refill(s) 0, [facility] #[facility] (more content not included)... Normal [facility] Comment on above: Result Comment: Elec tronically Signed By: Mat JIMENEZ, Dewayne Lynn.br\Date and Time Signed: 03/30/23 10:35 EST [id number] 03-30-2023 HbA1c (Bld) [Mass fraction] 6.4 % High <=5.9 [facility] Comment on above: Performed By: #### 7 [id number] ####[facility] [address] [address] Patient Educationon 03-30-19 Patient Education Nutrition BMI for Adults What [...] numbers. This can be done either in [place]ian (U.S.) or metric measurements. Note that charts and online BMI calculators are available to help you find your BMI quickly and easily without having to do these calculations yourself. To calculate your BMI in [place] ([place] measurements: 1. Measure your weight in [...] for Disease Control and Prevention: www.cdc.gov ? [place] Heart Association: www.heart.org ? National Heart, Lung, and Blood [place]: www.nhlbi.nih.gov Summary ? Body mass index (BMI) is a number that is calculated from a person's weight and height. ? BMI may help estimate how much of a person's weight is composed of fat. BMI can help identify those who may be at higher risk for certain medical problems. ? BMI can be measured using Gu[place]ian measurements or metric measurements. ? BMI charts are used to identify whether you are underweight, normal weight, overweight, or obese. This information is not intended to replace advice given to you by your health care provider. Make sure you discuss any questions you have with your health care provider. Document Revised: 10/18/2019 Document Reviewed: 08/25/2019 Elsevier Patient Education ? 2022 [employer]. 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 Patient states things are going well and she has gotten connected with B[facility]IN [facility] through [facility]. She has been following with Denia for 2 weeks. SW will remain available. Normal [facility] Family Medicine Office/Clini c Noteon 12-24-2022 Family [...] : 80 bpm SpO2 : 98 % ErvinMarcoin R - 12/21/2022 13:43 EST Chief Complaint : [...] : no issues or concerns Jimy Mueller - 12/21/2022 12:53 EST Vision Screen Comments : wears corrective lenses, follows with Cheikh/ Dr. Cui yearly or as needed Jimy Mueller 12/21/2022 13:43 EST Advance Directive FT Advance Directive : Yes Type of Advance Directive : Living will, Medical durable power of mental health counselor Location of Advance Directive : Unable to obtain copy Patient Wishes to Receive Further Information on Advance Directives : No Organ Donation Consent : Yes Jimy Mueller - 12/21/2022 12:53 EST Procedures / Surgeries FT [...] 0 ; Comments: 05/25/2022 14:14 EDT - Samantha FITCH Ivonne Cordero left knee ; Last Reviewed Dt/Tm: 12/21/2022 [...] : Nearly every (more content not included)... Normal [facility] Comment on above: Result Comment: Elec tronically Signed By: Dewayne Richey MD\.br\Date and Time Signed: 12/24/22 12:39 EST\.br\Electronically Co-Signed By: Jimy Mueller\.br\Date and Time Co-Signed: 12/21/22 15:15 EST Consent for Flu Vaccineon Consent for Flu Vaccine [id number] TIFF [facility] Screenson 12-22-2022 Screens [id number]#1. 00TIFF [facility] Ambulatory Visit Summaryon 1 02-20-2022 Ambulatory Visit Summary OLIVA MCNULTY :1950 Visit Date:12/21/2022 Ambulatory Visit Instructions Your [...] 10:00 AM EST With: Denia Ding Where: [facility] Wednesday 10:00 AM EST With: Dewayne Richey MD Where: [facility] Normal [address] [id number] \.br\ Medications\.br \ What How Much When [...] ? \.br\ Place frequently used items in vitz-di-ctaoq places. Lower the shelves around your home [...] way.\.br\ ? \.br\ Do not use floor uzbek or wax that makes floors slippery. If [...] include working with a physical therapist or resident athletic trainer to improve your strength, balance, and endurance.\.br\ Where to find more information\.br \ ? \.br\ Centers for Disease Control and Prevention, [place]: www.cdc.gov\.br \ ? \.br\ National [place] on Aging: www.melissa.nih.gov \.br\ Contact a health care provider if:\.br\ ? \.br\ You are afraid of falling at home.\.br\ ? \.br\ You feel weak, drowsy, or dizzy at home.\.br\ ? \.br\ You fall at home.\.br\ Summary\.br\ ? \.br\ There are many simple things that you can do to make your home safe [facility] Patient Educationon 12-22-19 23 Patient Education Caregiving [...] night-lights. ? Place frequently used items in rcsd-rx-kouwt places. Lower the shelves around your home [...] the way. ? Do not use floor uzbek or wax that makes floors slippery. If [...] include working with a physical therapist or resident athletic trainer to improve your strength, balance, and endurance. Where to find more information ? Centers for Disease Control and Prevention, [place]: www.cdc.gov ? National [place] on Aging: www.melissa.nih.gov Contact a health care [...] health ca (more content not included)... Normal [facility] Retail - Clinical Noteon Retail - Clinical Note [id number] 0CD:127 Normal [facility] Auto Diffon 10-06-2022 Basophils/100 WBC (Bld) 0.4 % Normal 0.0-2.0 [facility] Comment on above: Order Comment: Order Added by Discern Expert. Performed By: #### 2 193036, 7421340, 7174912, 6561810, 881995135, 80755508 ####[address] [address] Basophils/Leukocytes Auto (Bld) [Pure # fraction] 0.0 E9/L Normal 0.0-0.2 [facility] Comment on above: Order Comment: Order Added by Discern Expert. Performed By: #### 2 213309, 7932853, 1135340, 8367495, 560875364, 27348732 ####[address] [address] Eosinophils/100 WBC (Bld) 3.3 % Normal 0.0-8.0 [facility] Comment on above: Order Comment: Order Added by Discern Expert. Performed By: #### 2 456573, 9212707, 1533112, 6029139, 300063608, 42428878 ####[address] [address] Eosinophils/Leukocyt es Auto (Bld) [Pure # fraction] 0.2 E9/L Normal 0.0-0.5 [facility] Comment on above: Order Comment: Order Added by Discern Expert. Performed By: #### 2 377868, 4616802, 3913323, 3567809, 117869277, 12746167 ####[address] [address] Lymphocytes/100 WBC (Bld) 27.9 % Normal 14.0-50.0 [facility] Comment on above: Order Comment: Order Added by Moe Expert. Performed By: #### 2 290108, 4001820, 1710356, 9888662, 921172529, 50077307 ####[address] [address] Lymphocytes/Leukocyt es Auto (Bld) [Pure # fraction] 2.0 E9/L Normal 1.0-4.0 [facility] Comment on above: Order Comment: Order Added by Discern Expert. Performed By: #### 2 737368, 2705723, 3594870, 1353810, 355904988, 76300301 ####[address] [address] Monocytes/100 WBC (Bld) 10.0 % Normal 4.0-14.0 [facility] Comment on above: Order Comment: Order Added by Discern Expert. Performed By: #### 2 101883, 9715717, 3281787, 8960668, 779266114, 82311883 ####[address] [address] Monocytes/Leukocytes Auto (Bld) [Pure # fraction] 0.7 E9/L Normal 0.2-1.0 [facility] Comment on above: Order Comment: Order Added by Discern Expert. Performed By: #### 2 799208, 8282747, 0220403, 6218997, 414506241, 39679958 ####[address] [address] Neutrophils/100 WBC (Bld) 58.4 % Normal 36.0-75.0 [facility] Comment on above: Order Comment: Order Added by Discern Expert. Performed By: #### 2 008585, 5541765, 8243295, 3853758, 325200773, 16342131 ####[address] [address] Neutrophils/Leukocyt es Auto (Bld) [Pure # fraction] 4.2 E9/L Normal 2.0-7.5 [facility] Comment on above: Order Comment: Order Added by Moe Expert. Performed By: #### 2 647629, 7209805, 4503510, 4860848, 147630434, 80054510 ####[address] [place] [address] CBC w/ Auto Diffon 08-29-202 3 Erythrocyte distribution width (RBC) [Ratio] 16.9 % High 10.9-14.2 [facility] Comment on above: Performed By: #### 2 822790, 7643134, 6656565, 9712611, 242325338, 13497282 ####[address] [place] [address] Hematocrit (Bld) [Volume fraction] 43.2 % Normal 34.0-46.0 [facility] Comment on above: Performed By: #### 2 495960, 0018659, 3349755, 1520808, 815117457, 56668731 ####[address] [place] [address] Hemoglobin (Bld) [Mass/Vol] 13.6 g/dL Normal 12.0-16.0 [facility] Comment on above: Performed By: #### 2 442087, 2651450, 7967613, 1271421, 594065457, 40644794 ####[address] [address] MCH (RBC) [Entitic mass] 26.9 pg Low 27.0-34.0 [facility] Comment on above: Performed By: #### 2 795513, 3066045, 3093429, 0544939, 102374760, 03314103 ####[address] [address] MCHC (RBC) [Mass/Vol] 31.5 g/dL Normal 31.4-36.0 [facility] Comment on above: Performed By: #### 2 646688, 5929712, 6478368, 8191294, 207615158, 10520126 ####[address] [place] [address] MCV (RBC) [Entitic vol] 85.5 fL Normal 80.0-100.0 [facility] Comment on above: Performed By: #### 2 123116, 7577817, 5223109, 7967719, 972627212, 57383324 ####[facility] [address] [place] [address] Platelet mean volume (Bld) [Entitic vol] 11.1 fL High 6.4-10.8 [facility] Comment on above: Performed By: #### 2 032312, 5537816, 6894957, 1398582, 519929483, 87582720 ####[address] [place] [address] Platelets (Bld) [#/Vol] 184.0 E9/L Normal 150.0-500.0 [facility] Comment on above: Performed By: #### 2 751772, 5316734, 5405315, 4985464, 621034279, 13341930 ####[address] [address] RBC (Bld) [#/Vol] 5.1 E12/L Normal 4.3-5.9 [facility] Comment on above: Performed By: #### 2 847841, 3489896, 6334489, 3124409, 734970419, 00937667 ####[address] [place] [address] WBC corrected for nucl RBC Auto (Bld) [#/Vol] 7.1 E9/L Normal 4.0-11.0 [facility] Comment on above: Performed By: #### 2 228410, 8873375, 8527662, 7715723, 379126151, 25129327 ####[facility] [address] [place] [address] CMPon 10-06-2022 Albumin [Mass/Vol] 4.0 g/dL Normal 3.3-5.0 [facility] Comment on above: Performed By: #### 2 192450, 0940472, 6052982, 6075915, 400174047, 82583976 ####[facility] [address] [place] [address] Albumin/Globulin (S) [Mass conc ratio] 1.1 Normal 1.1-2.2 [facility] Comment on above: Performed By: #### 2 749902, 9768531, 6919293, 0851104, 426113275, 77583811 ####[facility] [address] [place] [address] ALP [Catalytic activity/Vol] 62 Int._Unit/L Normal 21-98 [facility] Comment on above: Performed By: #### 2 198029, 7679385, 6826786, 5517291, 257004257, 99870224 ####[facility] [address] [place] [address] ALT No additional P-5'-P [Catalytic activity/Vol] 17 Int._Unit/L Normal 6-46 [facility] Comment on above: Performed By: #### 2 472805, 1053311, 6104831, 3585097, 855013279, 02643365 ####[facility] [address] [place] [address] Anion gap [Moles/Vol] 11 mmol/L Normal 6-16 [facility] Comment on above: Performed By: #### 2 318248, 9264587, 2363477, 6982241, 756534854, 77402874 ####[facility] [address] [place] [address] AST [Catalytic activity/Vol] 26 Int._Unit/L Normal 5-43 [facility] Comment on above: Performed By: #### 2 077142, 1705842, 8023905, 8581526, 997764672, 50583457 ####[facility] [address] [place] [address] Bilirubin [Mass/Vol] 0.3 mg/dL Normal 0.0-1.1 [facility] Comment on above: Performed By: #### 2 309041, 5241053, 9028762, 5148329, 571904440, 70287172 ####[facility] [address] [place] [address] Calcium [Mass/Vol] 10.1 mg/dL Normal 8.9-11.1 [facility] Comment on above: Performed By: #### 2 506434, 9047364, 8290203, 9498397, 997290353, 79849913 ####[facility] [address] [place] [address] Chloride [Moles/Vol] 102 mmol/L Normal 101-111 [facility] Comment on above: Performed By: #### 2 022412, 0650914, 0189638, 7888482, 362915397, 48730284 ####[facility] [address] [place] [address] CO2 [Moles/Vol] 28 mmol/L Normal 21-31 [facility] Comment on above: Performed By: #### 2 023225, 6276463, 9900170, 4599124, 864445583, 61145831 ####[facility] [address] [place] [address] Creatinine [Mass/Vol] 1.0 mg/dL Normal 0.5-1.3 [facility] Comment on above: Performed By: #### 2 494883, 6168593, 5959545, 3505953, 612277041, 15773254 ####[facility] [address] [place] [address] Globulin (S) [Mass/Vol] 3.5 g/dL Normal 1.4-4.0 [facility] Comment on above: Performed By: #### 2 286560, 4752529, 3754313, 4296771, 160589787, 80241211 ####[facility] [address] [place] [address] Glucose [Mass/Vol] 51 mg/dL Low 55-199 [facility] Comment on above: Result Comment: If t his glucose result represents a fasting glucose, interpretation should refer to the following reference range: 55-99 mg/dL Performed By: #### 2 965833, 2743382, 0971347, 2522955, 445858460, 47332412 ####[facility] [address] [place] [address] Potassium [Moles/Vol] 4.4 mmol/L Normal 3.5-5.3 [facility] Comment on above: Performed By: #### 2 334090, 2253277, 3545699, 9616671, 995736760, 14295908 ####[facility] [address] [place] [address] Protein [Mass/Vol] 7.5 g/dL Normal 6.0-7.8 [facility] Comment on above: Performed By: #### 2 115621, 9560016, 8404095, 2839799, 598137472, 62899982 ####[facility] [address] [place] [address] Sodium [Moles/Vol] 137 mmol/L Normal 135-145 [facility] Comment on above: Performed By: #### 2 924096, 0055749, 5199701, 0575880, 108868703, 68005944 ####[facility] [address] [place] [address] Urea nitrogen [Mass/Vol] 16 mg/dL Normal 5-21 [facility] Comment on above: Performed By: #### 2 214461, 8718332, 5795368, 2411052, 043496208, 88654325 ####[facility] [address] [place] [address] Urea nitrogen/Creatinine [Mass ratio] 16 No Units Normal 10-20 [facility] Comment on above: Performed By: #### 2 686953, 8879098, 3645186, 5751459, 972425831, 78070066 ####[facility] [address] [place] [address] OwnV8int 10-06-2022 HbA1c (Bld) [Mass fraction] 7.0 % High <=5.9 [facility] Comment on above: Performed By: #### 2 942420, 0331785, 7706857, 0081913, 223259366, 07519729 ####[facility] [address] [place] [facility] [place] [address] Lipid Panelon 10-06-2022 Cholesterol [Mass/Vol] 124 mg/dL Normal 120-200 [facility] Comment on above: Performed By: #### 2 441543, 0546918, 6386316, 0278937, 699420127, 88765279 ####[facility] [address] [place] [address] Cholesterol in HDL [Mass/Vol] 47 mg/dL Invalid Interpretation Code [facility] Comment on above: Result Comment: HDL > or equal to 60 mg/dL: Low cardiovascular risk HDL < 40 mg/dL : High cardiovascular risk Performed By: #### 2 941156, 1409568, 0280739, 1196652, 694112633, 62233898 ####[facility] [address] [place] [address] Cholesterol in LDL [Mass/Vol] 72 mg/dL Normal <=129 [facility] Comment on above: Performed By: #### 2 118037, 2324084, 3495434, 6616543, 058703924, 51627572 ####[facility] [address] [place] [address] Cholesterol in VLDL [Mass/Vol] 17 mg/dL Normal 7-40 [facility] Comment on above: Performed By: #### 2 681425, 4477905, 5844414, 1243559, 406227719, 35767413 ####[facility] [address] [place] [address] Triglyceride [Mass/Vol] 85 mg/dL Normal <=149 [facility] Comment on above: Performed By: #### 2 010099, 7103073, 0764799, 8037974, 276144160, 94398984 ####[facility] [address] [place] [address] U Microalbon 10-06-2022 Albumin DL <= 20 mg/L (U) [Mass/Vol] 63.6 microgram/mL High 0.0-19.0 [facility] Comment on above: Performed By: #### 1 821819935, 65847887 ####[facility] [address] [place] [address] U Protein/Creat Ratioon 09-09 Albumin Elph (U) [Mass fraction] 16.5 mg/dL Invalid Interpretation Code [facility] Comment on above: Result Comment: The reference range and other method performance specifications have not been established for this test; results should be integrated into the clinical context for interpretation. Performed By: #### 1 [id number], [id number] ####[address] [place] [address] Creatinine (U) [Mass/Vol] 85.4 mg/dL Invalid Interpretation Code [facility] Comment on above: Result Comment: The reference range and other method performance specifications have not been established for this test; results should be integrated into the clinical context for interpretation. Performed By: #### 1 [id number], [id number] ####[address] [address] U Prot/Creat Ratio 193.20 mg/gm Cr Normal .00-200.00 F [facility] Comment on above: Performed By: #### 1 [id number], [id number] ####[address] [place] [address] eGFRon 10-06-2022 GFR/1.73 sq M.predicted among non-blacks MDRD (S/P/Bld) [Vol rate/Area] 59 mL/min/1.73 m2 Normal >=59 [facility] Comment on above: Order Comment: Order added by Discern Expert. Result Comment: Home Care Companion seven kidney disease could be indicated at eGFR's of less than 60 mL/min/1.73m2. Kidney failure is indicated at less than 15 mL/min/1.73m2. Performed By: #### 2 [id number], [id number] ####[address] [place] [address] Family Medicine Office/Clini c Noteon 10-05-2022 Family Medicine Office/Clinic Note Chief Complaint establish care, medication check HPI Staff Oliva is a 72 year old female presenting to establish care Establish Care: History:DM, CKD,GERD,Hypercholeste rolemia Last provider: Liu Any recent labs: A1C 6.7 (07/07/22) Health [...] data Pro (more content not included)... Normal [facility] Comment on above: Result Comment: Elec tronically Signed By: Mat JIMENEZ, Dewayne Lynn.br\Date and Time Signed: 10/05/22 17:05 EDT Patient [...] numbers. This can be done either in [place]ian ([place] or metric measurements. Note that charts and online BMI calculators are available to help you find your BMI quickly and easily without having to do these calculations yourself. To calculate your BMI in [place]ian ([place] measurements: 1. Measure your weight in [...] for Disease Control and Prevention: www.cdc.gov ? [place] Heart Association: www.heart.org ? National Heart, Lung, and Blood [place]: www.nhlbi.nih.gov Summary ? Body mass index (BMI) is a number that is calculated from a person's weight and height. ? BMI may help estimate how much of a person's weight is composed of fat. BMI can help identify those who may be at higher risk for certain medical problems. ? BMI can be measured using Guamanian measurements or metric measurements. ? BMI charts are used to identify whether you are underweight, normal weight, overweight, or obese. This information is not intended to replace advice given to you by your health care provider. Make sure you discuss any questions you have with your health care provider. Document Revised: 10/18/2019 Document Reviewed: 08/25/2019 [employer] Patient Education ? 2022 [email or web address] Normal [facility] GLYCOHEMOGLOBIN A1Con 2022 ADA RECOMMENDATION SEE BELOW Normal [facility] Comment on above: Result Comment: ADA RECOMMENDED LIMIT 4.0 - 6.0 ADA THERAPEUTIC TARGET < 7.0 ACTION SUGGESTED > 7.0 Performed By: #### A 1C #### [facility] [address] [address] [address] Adarsh Skinner Glucose [Mass/Vol] 146 mg/dL Normal [facility] Comment on above: Performed By: #### A 1C #### [facility] [address] [address] [address] Adarsh Skinner HbA1c (Bld) [Mass fraction] 6.7 % Critically high 4.5-6.2 [facility] Comment on above: Performed By: #### A 1C #### [facility] [address] [place], [place] [address] Dr. Adarsh Skinner Office Visit (Cardiology)on 06-19-2022 [...] Weight Tips; Status:Complete - Retrospective Authorization; Done: 19Jun2022 Some eating tips that can help you lose weight.; Status:Complete - Retrospective Authorization; Done: 19Jun2022 Hyperlipidemia Renew: Rosuvastatin Calcium 20 MG Oral Tablet; TAKE 1 TABLET AT BEDTIME SocHx: Never smoker Tobacco Use Screening; Status:Complete; Done: 19Jun2022 Patient Instructions Please bring all medicines, vitamins, [...] months - 1 year Chief Complaint NETTA MCNULTY is being seen for a 6 month [...] Lantus 100 UNIT/ML Subcutaneous SolutionINJECT SUBCUTANEOUSLY DIRECTED. G-Kbumfygdwqiz-X3-B12 3-35-2 MG TABSTake 1 tablet daily Losartan [...] negative for complaint. Vitals Vital Signs Recorded: [id number] 10:14AM Heart Rate66, R Radial Mizweyor067, RUE, Sitting Wqhxlhbxd24, RUE, Sitting Height5 ft 2 in (more content not included)... Normal cicayda Tobacco Screening.on 023 Adult depression screening assessment Yes [facility] Work Phone: Adult depression screening assessment No [facility] DO Work Phone: Adult depression screening assessment Mild (5-9) [facility] DO Work Phone: Fall risk assessment a) No falls within the last year [facility] Brenda faria 600 DO Work Phone: [id number] Tobacco use status [facility] b) No [facility] faria 600 DO Work Phone: [id number] Tobacco Screening. 1-Several days [facility] Brenda faria 600 DO Work Phone: [id number] Tobacco Screening. 3-Nearly every day [facility] faria 600 DO Work Phone: [phone] Tobacco Screening. 2-More than half the days [facility] Mahmood DO Work Phone: [phone] Tobacco Screening. 0-Not at all [facility] faria 600 DO Work Phone: [phone] Tobacco Screening. Somewhat Difficult [facility] Mahmood DO Work Phone: GLYCOHEMOGLOBIN A1Con 2022 ADA RECOMMENDATION SEE BELOW Normal [facility] Comment on above: Result Comment: ADA RECOMMENDED LIMIT 4.0 - 6.0 ADA THERAPEUTIC TARGET < 7.0 ACTION SUGGESTED > 7.0 Performed By: #### A 1C #### [facility] [address] [place] [address] Dr. Adarsh Skinner Glucose [Mass/Vol] 148 mg/dL Normal [facility] Comment on above: Performed By: #### A 1C #### [facility] [address] [address] [address] Adarsh Skinner HbA1c (Bld) [Mass fraction] 6.8 % Critically high 4.5-6.2 [facility] Comment on above: Performed By: #### A 1C #### [facility] [address] [address] [address] Adarsh Skinner Cardiovasc Arrhythmia Result son 02-23-2022 Cardiovasc Arrhythmia Results Reason For Visit Reason for Visit: Holter Monitor: NETTA is here for the application of a 24 hour Holter monitor. Ordering Physician: Dr. Zak Nguyen MD Diagnosis: pvc NO equipment agreement signed. NETTA understands monitor is to be returned on: 1/17/23 Monitor number [id number] applied. Holter monitor returned and downloaded. Holter [...] Future Appointments Date/TimeProviderSpeci altySite 06/19/2022 10:10 Zak Moe, [id number] [facility] Signatures Electronically signed by : Fanny Zelaya L.P.N.; Feb 24 2022 11:03AM EST (Author) Electronically signed by : Zak Nguyen MD; Mar 05 2022 11:58AM EST (Author) Normal cicayda Office Visit (Cardiology)on 01-19-2022 Follow-up visit Diagnoses/Problems [...] in adult Healthy Weight Tips; Status:Complete; Done: [id number] Some eating tips that can help you lose weight.; Status:Complete; Done: [id number] PVC's (premature ventricular contractions) IO Holter Monitor up to 48 Hrs; Status:Complete; Done: [id number] SocHx: Never smoker Tobacco Use Screening; Status:Complete; Done: [id number] Patient Instructions Please bring all medicines, vitamins, [...] up in 6 months Chief Complaint NETTA MCNULTY is being seen for a 4-6 weeks [...] Lantus 100 UNIT/ML Subcutaneous SolutionINJECT SUBCUTANEOUSLY DIRECTED. B-Irongvvucdhe-A9-B12 3-35-2 MG Oral TabletTake 1 tablet daily [...] have been (more content not included)... Normal cicayda Tobacco Screening.on 022 Fall risk assessment a) No falls within the last year [facility] DO Work Phone: Tobacco use status [facility] b) No [facility] DO Work Phone: CBC AUTO DIFFon 01-07-2022 BASO # 0.1 103/ul Normal 0.0-0.1 [facility] Comment on above: Performed By: #### C BC #### [facility] [address] [address] [address] Adarsh Skinner Basophils/100 WBC (Bld) 0.7 % Normal 0.2-2.0 [facility] Comment on above: Performed By: #### C BC #### [facility] [address] [place] [address] Dr. Adarsh Skinner EO # 0.2 103/ul Normal 0.0-0.7 [facility] Comment on above: Performed By: #### C BC #### [facility] [address] [place] [address] Dr. Adarsh Skinner Eosinophils/100 WBC (Bld) 2.0 % Normal 0.9-7.0 [facility] Comment on above: Performed By: #### C BC #### [facility] [address] [place] [address] Dr. Adarsh Skinner Erythrocyte distribution width (RBC) [Ratio] 15.9 % Critically high 11.0-15.0 [facility] Comment on above: Performed By: #### C BC #### [facility] [address] [place] [address] Dr. Adarsh Skinner Hematocrit (Bld) [Volume fraction] 41.7 % Normal 36.0-48.0 [facility] Comment on above: Performed By: #### C BC #### [facility] [address] [place] [address] Dr. Adarsh Skinner Hemoglobin (Bld) [Mass/Vol] 13.2 g/dL Normal 12.0-16.0 [facility] Comment on above: Performed By: #### C BC #### [facility] [address] [place] [address] Dr. Adarsh Skinner IG # 0.03 10e3/ul Normal 0.00-0.03 [facility] Comment on above: Performed By: #### C BC #### [facility] [address] [place] [address] Dr. Adarsh Skinner IG % 0.3 % Normal 0.0-0.5 [facility] Comment on above: Performed By: #### C BC #### [facility] [address] [place] [address] Dr. Adarsh Skinner LYMPH # 1.9 103/ul Normal 1.2-3.8 [facility] Comment on above: Performed By: #### C BC #### [facility] [address] [place] [address] Dr. Adarsh Skinner Lymphocytes/100 WBC (Bld) 20.6 % Normal 20.5-60.0 [facility] Comment on above: Performed By: #### C BC #### [facility] [address] [place] [address] Dr. Adarsh Skinner MANUAL DIFF REQ NO Normal [facility] Comment on above: Performed By: #### C BC #### [facility] [address] [place] [address] Dr. Adarsh Skinner MCH (RBC) [Entitic mass] 26.8 pg Normal 26.7-34.0 [facility] Comment on above: Performed By: #### C BC #### [facility] [address] [place] [address] Dr. Adarsh Skinner MCHC (RBC) [Mass/Vol] 31.7 g/dL Normal 29.9-35.2 [facility] Comment on above: Performed By: #### C BC #### [facility] [address] [place] [address] Dr. Adarsh Skinner MCV (RBC) [Entitic vol] 84.8 fL Normal 81.0-99.0 [facility] Comment on above: Performed By: #### C BC #### [facility] [address] [place] [address] Dr. Adarsh Skinner MONO # 0.7 103/ul Normal 0.3-0.8 [facility] Comment on above: Performed By: #### C BC #### [facility] [address] [place] [address] Dr. Adarsh Skinner Monocytes/100 WBC (Bld) 7.2 % Normal 1.7-12.0 [facility] Comment on above: Performed By: #### C BC #### [facility] [address] [address] [address] Adarsh Skinner NEUT # 6.4 103/ul Normal 1.4-6.5 [facility] Comment on above: Performed By: #### C BC #### [facility] [address] [address] [address] Adarsh Skinner Neutrophils/100 WBC (Bld) 69.2 % Normal 43.0-75.0 [facility] Comment on above: Performed By: #### C BC #### [facility] [address] [address] [address] Adarsh Skinner Platelet mean volume (Bld) [Entitic vol] 12.2 fL Normal 9.5-13.5 [facility] Comment on above: Performed By: #### C BC #### [facility] [address] [place] [address] Dr. Adarsh Skinner PLT 217 103/ul Normal 150-450 [facility] Comment on above: Performed By: #### C BC #### [facility] [address] [place] [address] Dr. Adarsh Skinner RBC 4.92 106/ul Normal 4.20-5.40 [facility] Comment on above: Performed By: #### C BC #### [facility] [address] [place] [address] Dr. Adarsh Skinner WBC 9.2 103/ul Normal 4.0-11.0 [facility] Comment on above: Performed By: #### C BC #### [facility] [address] [place] [address] Dr. Adarsh Skinner GLYCOHEMOGLOBIN A1Con 2021 ADA RECOMMENDATION SEE BELOW Normal [facility] Comment on above: Result Comment: ADA RECOMMENDED LIMIT 4.0 - 6.0 ADA THERAPEUTIC TARGET < 7.0 ACTION SUGGESTED > 7.0 Performed By: #### A 1C ####[facility] [id number] [address]Dr[address] Adarsh Skinner Glucose [Mass/Vol] 143 mg/dL Normal [facility] Comment on above: Performed By: #### A 1C ####[facility] [id number] [place], [place] [address]VsDr. Adarsh Skinner HbA1c (Bld) [Mass fraction] 6.6 % Critically high 4.5-6.2 [facility] Comment on above: Performed By: #### A 1C ####[facility] [id number] [address]Dr[address] Adarsh Skinner LIPID PROFILEon 01-07-2022 CHOL-HDL RATIO NORM SEE BELOW Normal [facility] Comment on above: Result Comment: 3.3 - 4.4 LOW RISK 4.4 - 7.1 AVERAGE RISK 7.1 - 11.0 MODERATE RISK >11.0 HIGH RISK Performed By: #### C MP, LIPID #### [facility] [address] [address] [address] Adarsh Skinner Cholesterol [Mass/Vol] 121 mg/dL Normal <=200 [facility] Comment on above: Performed By: #### C MP, LIPID #### [facility] [address] [address] [address] Adarsh Skinner Cholesterol in HDL [Mass/Vol] 55 mg/dL Normal 40-60 [facility] Comment on above: Performed By: #### C MP, LIPID #### [facility] [address] [address] [address] Adarsh Skinner Cholesterol in LDL [Mass/Vol] 50.8 mg/dL Normal [facility] Comment on above: Performed By: #### C MP, LIPID #### [facility] [address] [address] [address] Adarsh Skinner Cholesterol.total/Ch olesterol in HDL [Mass ratio] 2.2 {ratio} Normal [facility] Comment on above: Performed By: #### C MP, LIPID #### [facility] [address] [address] [address] Adarsh Skinner HDL NORMAL > or = 60 mg/dl - LO W CARDIOVASCULAR RISK <40 mg/dl - HIGH CARDIOVASCULAR RISK Normal [facility] Comment on above: Performed By: #### C MP, LIPID #### [facility] [address] [address] [address] Adarsh Skinner LDL CALC NORMAL SEE BELOW Normal [facility] Comment on above: Result Comment: <100 mg/dl OPTIMAL 100 - 129 mg/dl NEAR OR ABOVE OPTIMAL 130 - 159 mg/dl BORDERLINE HIGH 160 - 189 mg/dl HIGH >190 mg/dl VERY HIGH Performed By: #### C MP, LIPID #### [facility] [address] [address] [address] Adarsh Skinner Triglyceride [Mass/Vol] 76 mg/dL Normal <=150 [facility] Comment on above: Performed By: #### C MP, LIPID #### [facility] [address] [address] [address] Adarsh Skinner VLDL CALC 15.2 mg/dL Normal [facility] Comment on above: Performed By: #### C MP, LIPID #### [facility] [address] [place] [address] Dr. Adarsh Skinner PROF 14(COMP METB)on 022 Albumin [Mass/Vol] 3.6 g/dL Normal 3.4-5.0 [facility] Comment on above: Performed By: #### C MP, LIPID #### [facility] [address] [place] [address] Dr. Adarsh Skinner Albumin/Globulin [Mass ratio] 1.1 {ratio} Normal [facility] Comment on above: Performed By: #### C MP, LIPID #### [facility] [address] [address] [address] Adarsh Skinner ALP [Catalytic activity/Vol] 57 U/L Normal 46-116 [facility] Comment on above: Performed By: #### C MP, LIPID #### [facility] [address] [address] [address] Adarsh Skinner ALT [Catalytic activity/Vol] 23 U/L Normal 14-59 [facility] Comment on above: Performed By: #### C MP, LIPID #### [facility] [address] [place] [address] Dr. Adarsh Skinner Anion gap [Moles/Vol] 14.7 mmol/L Normal [facility] Comment on above: Performed By: #### C MP, LIPID #### [facility] [address] [address] [address] Adarsh Skinner AST [Catalytic activity/Vol] 29 U/L Normal 15-37 [facility] Comment on above: Performed By: #### C MP, LIPID #### [facility] [address] [address] [address] Adarsh Skinner Bilirubin [Mass/Vol] 0.8 mg/dL Normal 0.2-1.0 [facility] Comment on above: Performed By: #### C MP, LIPID #### [facility] [address] [address] [address] Adarsh Skinner Calcium [Mass/Vol] 10.2 mg/dL Critically high 8.5-10.1 [facility] [place] [facility] Comment on above: Performed By: #### C MP, LIPID #### [facility] [address] [address] [address] Adarsh Skinner Chloride [Moles/Vol] 104 mmol/L Normal 98-107 [facility] Comment on above: Performed By: #### C MP, LIPID #### [facility] [address] [address] [address] Adarsh Skinner CO2 [Moles/Vol] 25.0 mmol/L Normal 21.0-32.0 [facility] Comment on above: Performed By: #### C MP, LIPID #### [facility] [address] [address] [address] Adarsh Skinner Creatinine [Mass/Vol] 1.32 mg/dL Critically high 0.55-1.02 [facility] Comment on above: Performed By: #### C MP, LIPID #### [facility] [address] [address] [address] Adarsh Skinner EGFR-AF GAMBIAN 48 mL/min/1.73m2 Critically low >=60 [facility] Comment on above: Performed By: #### C MP, LIPID #### [facility] [address] [address] [address] Adarsh Skinner EGFR-NON AF GAMBIAN 39 mL/min/1.73m2 Critically low >=60 [facility] Comment on above: Performed By: #### C MP, LIPID #### [facility] [address] [address] [address] Adarsh Skinner Globulin (S) [Mass/Vol] 3.4 g/dL Normal [facility] Comment on above: Performed By: #### C MP, LIPID #### [facility] [address] [address] [address] Adarsh Skinner Glucose [Mass/Vol] 177 mg/dL Critically high 74-106 [facility] [place] [facility] Comment on above: Performed By: #### C MP, LIPID #### [facility] [address] [address] [address] Adarsh Skinner Potassium [Moles/Vol] 4.7 mmol/L Normal 3.5-5.1 [facility] Comment on above: Performed By: #### C MP, LIPID #### [facility] [address] [place] [address] Dr. Adarsh Skinner Protein [Mass/Vol] 7.0 g/dL Normal 6.4-8.2 [facility] Comment on above: Performed By: #### C MP, LIPID #### [facility] [address] [place] [address] Dr. Adarsh Skinner Sodium [Moles/Vol] 139 mmol/L Normal 136-145 [facility] Comment on above: Performed By: #### C MP, LIPID #### [facility] [address] [place] [address] Dr. Adarsh Skinner Urea nitrogen [Mass/Vol] 20.0 mg/dL Critically high 7.0-18.0 [facility] Comment on above: Performed By: #### C MP, LIPID #### [facility] [address] [place] [address] Dr. Adarsh Skinner Urea nitrogen/Creatinine [Mass ratio] 15.2 mg/mg Normal [facility] Comment on above: Performed By: #### C MP, LIPID #### [facility] [address] [place] [address] Dr. Adarsh Skinner Tobacco Screening.on 022 Fall risk assessment a) No falls within the last year [facility] k 600 DO Work Phone: Tobacco use status [facility] b) No [facility] k 600 DO Work Phone: MG MAMM SCREEN 3D GILSON CADon 12-01-2021 MG MAMM SCREEN 3D GILSON CAD Patient: NETTA MCNULTY Exam Date: 12/01/2021 : 1950 Gender:F Ordering : DR DOMONIQUE HATFIELD . Admission #: [id number] Family : Order #: [id number] CLICK HERE TO VIEW EXAM RADIOLOGY REPORT [...] Treatments None Family Cancers None LOCATION: [facility] BREAST COMPOSITION: Scattered areas fibroglandular density. FINDINGS: [...] Kendall MD on 12/01/2021 at 11:22 Normal [facility] GLYCOHEMOGLOBIN A1Con 2021 ADA RECOMMENDATION SEE BELOW Normal [facility] Comment on above: Result Comment: ADA RECOMMENDED LIMIT 4.0 - 6.0 ADA THERAPEUTIC TARGET < 7.0 ACTION SUGGESTED > 7.0 Performed By: #### A 1C #### [facility] [address] [address] [address] Adarsh Skinner Glucose [Mass/Vol] 154 mg/dL Normal [facility] Comment on above: Performed By: #### A 1C #### [facility] [address] [place] [address] Dr. Adarsh Skinner HbA1c (Bld) [Mass fraction] 7.0 % Critically high 4.5-6.2 [facility] Comment on above: Performed By: #### A 1C #### [facility] [address] [place] [address] Dr. Adarsh Skinner Tobacco Screening.on 022 Fall risk assessment a) No falls within the last year [facility] k 600 DO Work Phone: Tobacco use status [facility] b) No -[facility] k 600 DO Work Phone: MICROALBUMIN, RAND URon 07-0 mALB 17.9 mg/L Normal <=30.0 [facility] Comment on above: Performed By: #### M ALBR #### [facility] [address] [place] [address] Dr. Adarsh Skinner PROF CHEM 8 (BAS METB)on Anion gap [Moles/Vol] 20.0 mmol/L Normal [facility] Comment on above: Performed By: #### B MP #### [facility] [address] [place] [address] Dr. Adarsh Skinner Calcium [Mass/Vol] 9.6 mg/dL Normal 8.5-10.1 [facility] Comment on above: Performed By: #### B MP #### [facility] [address] [place] [address] Dr. Adarsh Skinner Chloride [Moles/Vol] 106 mmol/L Normal 98-107 [facility] Comment on above: Performed By: #### B MP #### [facility] [address] [place] [address] Dr. Adarsh Skinner CO2 [Moles/Vol] 17.4 mmol/L Critically low 21.0-32.0 [facility] Comment on above: Performed By: #### B MP #### [facility] [address] [place] [address] Dr. Adarsh Skinner Creatinine [Mass/Vol] 1.28 mg/dL Critically high 0.55-1.02 [facility] Comment on above: Performed By: #### B MP #### [facility] [address] [address] [address] Adarsh Skinner EGFR-AF GAMBIAN 50 mL/min/1.73m2 Critically low >=60 [facility] Comment on above: Performed By: #### B MP #### [facility] [address] [address] [address] Adarsh Skinner EGFR-NON AF GAMBIAN 41 mL/min/1.73m2 Critically low >=60 [facility] Comment on above: Performed By: #### B MP #### [facility] [address] [address] [address] Adarsh Skinner Glucose [Mass/Vol] 50 mg/dL Critically low 74-106 [facility] Comment on above: Performed By: #### B MP #### [facility] [address] [address] [address] Adarsh Skinner Potassium [Moles/Vol] 4.3 mmol/L Normal 3.5-5.1 [facility] Comment on above: Performed By: #### B MP #### [facility] [address] [address] [address] Adarsh Skinner Sodium [Moles/Vol] 141 mmol/L Normal 136-145 [facility] Comment on above: Performed By: #### B MP #### [facility] [address] [address] [address] Adarsh Skinner Urea nitrogen [Mass/Vol] 17.0 mg/dL Normal 7.0-18.0 [facility] Comment on above: Performed By: #### B MP #### [facility] [id number] Aadrsh Skinner Urea nitrogen/Creatinine [Mass ratio] 13.2 mg/mg Normal [facility] Comment on above: Performed By: #### B MP #### [facility] [address] [address] [address] Adarsh Skinner PHQ-2 VITALSon 07-22-2021 Adult depression screening assessment Yes [facility] Sonia Nayak DO Work Phone: Adult depression screening assessment No [facility] Sonia Nayak DO Work Phone: PHQ-2 VITALS 0-Not at all [facility] Sonia Nayak DO Work Phone: PHQ-2 VITALS 1-Several days [facility] Sonia Nayak DO Work Phone: [phone] PHQ-2 VITALS 3-Nearly every day [facility] Sonia Nayak DO Work Phone: [phone] PHQ-2 VITALS Not difficult at all [facility] Sonia Nayak DO Work Phone: Tobacco Screening.on 022 Fall risk assessment b) One or more fall s in the last year [facility] Sonia Nayak DO Work Phone: Tobacco use status CPHS b) No [facility] Sonia Nayak DO Work Phone: NM MYOCARDIAL PERFUSION MULT I SPECTon 07-02-2021 NM MYOCARDIAL PERFUSION MULTI SPECT Patient Info Name: NETTA MCNULTY Age: 71 years : 1950 Gender: Female Ht: 157 cm Wt: 98 kg BSA: 2.13 m2 Exam Date: 07/02/2021 12:11 PM Patient Status: Inpatient Exam Type: NM MYOCARDIAL PERFUSION MULTI SPECT Study Info Indications - CAD screening, intermediate CAD risk, not treadmill candidate Attending Physician: Sierra Jc [id number] Primary Nurse: Violet Hope RN Secondary Nurse: [...] infusion. LEXISCAN. Radiopharmaceutical: Tc-99m Sestamibi Camera Used: [employer] Radiopharmaceutical: Tc-99m Sestamibi Camera Used: [employer] Image Protocol Protocol: Rest/Stress 1 Day Rest [...] PM Dict (more content not included)... Normal [facility] Comment on above: Order Comment: Injur y/Trauma or Illness?:Illness/Other How long have you had these symptoms (acute/chronic)?:Acute Reason for exam?:CAD screening Type of Exam?:Ongoing Additional signs and symptoms?:no ECHOCARDIOGRAM COMPLETEon ECHOCARDIOGRAM COMPLETE Patient Info Name: NETTA MCNULTY Age: 71 years : 1950 Gender: Female Ht: 157 cm Wt: 64 kg BSA: 1.68 m2 BP: 160 / 79 mmHg Exam Date: 07/01/2021 10:16 AM Patient Status: Inpatient Hand I Thermal Cutter: Laura Shaw RDMS, RVT Exam Type: ECHOCARDIOGRAM COMPLETE Study Info Indications - Other - Palpitations Attending Physician: [facility] FAYE Referring Physician: STAN Lechuga; [id number] BMI: 25.61 kg/m2 Summary 1. Normal cardiac [...] Normal ---- MV Doppler ---- MV Decel Millard 593 cm/s2 MV PHT 39 ms MV [...] Normal - (more content not included)... Normal [facility] XR CHEST PA/APon 06-30-2021 XR CHEST PA/AP EXAMINATION: XR CHEST PA/AP 06/30/2021 9:51 pm HISTORY: ORDERING SYSTEM PROVIDED HISTORY: irreg heart ryjohannm, TECHNOLOGIST PROVIDED HISTORY: Illness/Other Reason for exam: [...] blood sugar was really low at the [facility]. Pt is having runs of virginia harris [...] WedJune 30, 2021 10:21:35 PM EDT Normal [facility] Comment on above: Order Comment: Injur y/Trauma [...] blood sugar was really low at the [facility]. Pt is having runs of [place]ia harris MD aware. Pads attached to monitor at this time Vital Signs Date Time Vital Sign Value Performing Clinician Facility 04-29-2023 13:41-0400 Body height 157.5 cm Gary Chávez PLUMBING AND HEATING MECHANIC-AUTOMOTIVE WELDER Work Phone: [facility] 04-29-2023 13:41-0400 Body mass index (BMI) [Ratio] 32.37 kg/m2 Gary Chávez PLUMBING AND HEATING MECHANIC-AUTOMOTIVE WELDER Work Phone: [facility] 04-29-2023 13:41-0400 Body weight 80.29 kg Gary Chávez PLUMBING AND HEATING MECHANIC-AUTOMOTIVE WELDER Work Phone: [facility] 04-29-2023 13:41-0400 Diastolic blood pressure 60 mm[Hg] Gary Chávez PLUMBING AND HEATING MECHANIC-AUTOMOTIVE WELDER Work Phone: [facility] 04-29-2023 13:41-0400 Heart rate 80 /min Gary Chávez PLUMBING AND HEATING MECHANIC-AUTOMOTIVE WELDER Work Phone: [facility] 04-29-2023 13:41-0400 Systolic blood pressure 116 mm[Hg] Gary Chávez PLUMBING AND HEATING MECHANIC-AUTOMOTIVE WELDER Work Phone: [facility] 03-02-2023 10:00-0500 Body height 157.48 cm OptM[employer]enia [employer] Other [employer] (Social Influence Quotient) [facility] [place] Other 03-02-2023 10:00-0500 Body mass index (BMI) [Ratio] 32.55 kg/m2 [employer] Other NPM Other 03-02-2023 10:00-0500 Body temperature 96.6 [degF] [employer] Other [facility] Other 03-02-2023 10:00-0500 Body weight 80.74 kg Azyecenia Bakchantels Other [facility] Other 03-02-2023 10:00-0500 Diastolic blood pressure 70 mm[Hg] Aziz Bakhous Other [facility] Other 03-02-2023 10:00-0500 Respiratory rate 18 /min Azyecenia Bakhous Other [facility] Other 03-02-2023 10:00-0500 SaO2% (BldA) [Mass fraction] 99 % Placidoiz Bakhous Other [facility] Other 03-02-2023 10:00-0500 Systolic blood pressure 110 mm[Hg] Aziz Bakhous Other [facility] Other 09-15-2022 11:40-0400 Body height 157.48 cm Ramsey Bakchantels Other [facility] Other 09-15-2022 11:40-0400 Body mass index (BMI) [Ratio] 32.92 kg/m2 Azyecenia Bakhous Other [facility] Other 09-15-2022 11:40-0400 Body temperature 96.1 [degF] Aziz Bakhous Other [facility] Other 09-15-2022 11:40-0400 Body weight 81.65 kg Aziz Bakhous Other [facility] Other 09-15-2022 11:40-0400 Diastolic blood pressure 72 mm[Hg] Aziz Bakhous Other [facility] Other 09-15-2022 11:40-0400 Respiratory rate 18 /min Ramsey Steward Other [facility] Other 09-15-2022 11:40-0400 SaO2% (BldA) [Mass fraction] 97 % Ramsey Steward Other [facility] Other 09-15-2022 11:40-0400 Systolic blood pressure 140 mm[Hg] Ramsey Steward Other [facility] Other 06-19-2022 10:14-0400 Body height 157.48 cm Domonique Hatfield Work Phone: [facility] [employer] 600 DO Work Phone: 06-19-2022 10:14-0400 Body mass index (BMI) [Ratio] 34.39 kg/m2 Domonique Hatfield Work Phone: [facility] 600 DO Work Phone: 06-19-2022 10:14-0400 Body surface area Derived from formula 1.86 m2 Domonique Hatfield Work Phone: [facility] 600 DO Work Phone: 06-19-2022 10:14-0400 Body weight 85.28 kg Domonique Hatfield Work Phone: [facility] 600 DO Work Phone: 06-19-2022 10:14-0400 Diastolic blood pressure 68 mm[Hg] Domonique Cuevas Hatfield Work Phone: [facility] 600 DO Work Phone: 06-19-2022 10:14-0400 Heart rate 66 /min Domonique Mason Hatfield Work Phone: [facility] [employer] 600 DO Work Phone: 06-19-2022 10:14-0400 Systolic blood pressure 138 mm[Hg] Domonique Hatfield Work Phone: [facility] [employer] 600 DO Work Phone: 06-19-2022 10:14-0400 7 1 Domonique Hatfield Work Phone: [facility] [employer] 600 DO Work Phone: Comment on above: PHQ-9 TS 04-22-2022 11:20-0400 Body height 157.48 cm Ramsey [employer] Other N[facility] Other 04-22-2022 11:20-0400 Body mass index (BMI) [Ratio] 34.53 kg/m2 Ramsey [employer] Other [facility] Other 04-22-2022 11:20-0400 Body temperature 97.3 [degF] Ramsey [employer] Other [facility] Other 04-22-2022 11:20-0400 Body weight 85.64 kg Ramsey [employer] Other N[facility] Other 04-22-2022 11:20-0400 Diastolic blood pressure 80 mm[Hg] Azyecenia V[employer]Parade [employer] Other N[facility] Other 04-22-2022 11:20-0400 Respiratory rate 18 /min Azyecenia [employer] Other [facility] Other 04-22-2022 11:20-0400 SaO2% (BldA) [Mass fraction] 98 % Azyecenia [employer] Other [facility] Other 04-22-2022 11:20-0400 Systolic blood pressure 154 mm[Hg] Ramsey Steward Other [facility] [place] Other 01-19-2022 10:58-0500 Body height 157.48 cm Domonique Hatfield Work Phone: [facility] 600 DO Work Phone: 01-19-2022 10:58-0500 Body mass index (BMI) [Ratio] 35.48 kg/m2 Domonique Cuevas Hatfield Work Phone: [facility] 600 DO Work Phone: 01-19-2022 10:58-0500 Body surface area Derived from formula 1.89 m2 Domonique Mason Hatfield Work Phone: [facility] 600 DO Work Phone: 01-19-2022 10:58-0500 Body weight 88 kg Domonique Hatfield Work Phone: [facility] 600 DO Work Phone: 01-19-2022 10:58-0500 Diastolic blood pressure 60 mm[Hg] Domonique Hatfield Work Phone: [facility] 600 DO Work Phone: 01-19-2022 10:58-0500 Heart rate 68 /min Domonique Gonzalezight Work Phone: [facility] 600 DO Work Phone: 01-19-2022 10:58-0500 Systolic blood pressure 136 mm[Hg] Domonique Mason GonzalezHatfield Work Phone: [facility] 600 DO Work Phone: 12-05-2021 10:36-0400 Body height 157.48 cm Domonique Mason Hatfield Work Phone: [facility] 600 DO Work Phone: 12-05-2021 10:36-0400 Body mass index (BMI) [Ratio] 36.03 kg/m2 Domonique Mason Hatfield Work Phone: [facility] 600 DO Work Phone: 12-05-2021 10:36-0400 Body surface area Derived from formula 1.9 m2 Domonique Mason Hatfield Work Phone: [facility] 600 DO Work Phone: 12-05-2021 10:36-0400 Body weight 89.36 kg Domonique Mason Hatfield Work Phone: [facility] 600 DO Work Phone: 12-05-2021 10:36-0400 Diastolic blood pressure 64 mm[Hg] Domonique Mason Hatfield Work Phone: [facility] 600 DO Work Phone: 12-05-2021 10:36-0400 Heart rate 88 /min Domonique Hatfield Work Phone: [facility] 600 DO Work Phone: 12-05-2021 10:36-0400 Systolic blood pressure 120 mm[Hg] Domonique Mason Hatfield Work Phone: [facility] 600 DO Work Phone: 08-27-2021 09:21-0400 Body height 157.48 cm Domonique Mason Hatfield Work Phone: [facility] 600 DO Work Phone: 08-27-2021 09:21-0400 Body mass index (BMI) [Ratio] 37.31 kg/m2 Domonique Mason Hatfield Work Phone: [facility] 600 DO Work Phone: 08-27-2021 09:21-0400 Body surface area Derived from formula 1.93 m2 Domonique Cuevas Hatfield Work Phone: [facility] 600 DO Work Phone: 08-27-2021 09:21-0400 Body weight 92.53 kg Domonique Mason Hatfield Work Phone: [facility] 600 DO Work Phone: 08-27-2021 09:21-0400 Diastolic blood pressure 64 mm[Hg] Domonique Cuevas Hatfield Work Phone: [facility] 600 DO Work Phone: 08-27-2021 09:21-0400 Heart rate 80 /min Domonique Mason Hatfield Work Phone: [facility] 600 DO Work Phone: 08-27-2021 09:21-0400 Systolic blood pressure 110 mm[Hg] Domonique Cuevas Hatfield Work Phone: [facility] 600 DO Work Phone: 07-22-2021 08:58-0400 Diastolic blood pressure 60 mm[Hg] Domonique E Hatfield Work Phone: [facility] 250 DO Work Phone: 07-22-2021 08:58-0400 Systolic blood pressure 126 mm[Hg] Domonique Cuevas Hatfield Work Phone: [facility] 250 DO Work Phone: 07-22-2021 08:58-0400 Systolic blood pressure 134 mm[Hg] Domonique E Hatfield Work Phone: [facility] 250 DO Work Phone: 07-22-2021 08:40-0400 Diastolic blood pressure 60 mm[Hg] Domonique E Hatfield Work Phone: [facility] 250 DO Work Phone: 07-22-2021 08:40-0400 Systolic blood pressure 128 mm[Hg] Domonique E Hatfield Work Phone: [facility] 250 DO Work Phone: 07-22-2021 08:36-0400 Body height 157.48 cm Domonique Hatfield Work Phone: [facility] 250 DO Work Phone: 07-22-2021 08:36-0400 Body mass index (BMI) [Ratio] 38.23 kg/m2 Domonique Mason Hatfield Work Phone: [facility] 250 DO Work Phone: 07-22-2021 08:36-0400 Body surface area Derived from formula 1.95 m2 Domonique Mason Hatfield Work Phone: [facility] 250 DO Work Phone: 07-22-2021 08:36-0400 Body weight 94.8 kg Domonique Mason Hatfield Work Phone: [facility] 250 DO Work Phone: 07-22-2021 08:36-0400 Diastolic blood pressure 62 mm[Hg] Domonique Mason Hatfield Work Phone: [facility] 250 DO Work Phone: 07-22-2021 08:36-0400 Heart rate 56 /min Domonique Mason Hatfield Work Phone: [facility] 250 DO Work Phone: 07-22-2021 08:36-0400 Systolic blood pressure 130 mm[Hg] Domonique aMson Hatfield Work Phone: [facility] 250 DO Work Phone: 07-22-2021 08:27-0400 6 1 Domonique Mason Hatfield Work Phone: [facility] 250 DO Work Phone: Comment on above: PHQ-9 TS 11-18-2020 13:35-0400 Body height 157.48 cm Oxana Felipe Other [facility] Other 11-18-2020 13:35-0400 Body mass index (BMI) [Ratio] 36.58 kg/m2 Oxana Felipe Other [facility] Other 11-18-2020 13:35-0400 Body temperature 97.1 [degF] Oxana Felipe Other [facility] Other 11-18-2020 13:35-0400 Body weight 90.72 kg Oxana Felipe Other [facility] Other 11-18-2020 13:35-0400 Diastolic blood pressure 61 mm[Hg] Oxana Felipe Other [facility] Other 11-18-2020 13:35-0400 Respiratory rate 18 /min Oxana Felipe Other [facility] Other 11-18-2020 13:35-0400 SaO2% (BldA) [Mass fraction] 98 % Oxana Felipe Other [facility] Other 11-18-2020 13:35-0400 Systolic blood pressure 120 mm[Hg] Oxana Felipe Other [facility] Other Encounters Encounter Date Encounter Type Care Provider Facility Start: 12-23-2023 ambulatory Pilar Rodriguez Facility: [facility] Start: 10-13-2023 ambulatory Denia Rowell [facility] Start: 09-29-2023 ambulatory Denia Rowell [facility] Start: 09-28-2023 ambulatory Dewanye Richey Facility :[facility] Start: 09-15-2023 End: 09-15-2023 ambulatory Denia Rowell [facility] Start: 09-15-2023 End: 09-15-2023 Patient encounter procedure Denia Rowell [facility] Start: 09-01-2023 End: 09-01-2023 ambulatory Denia Rowell [facility] Start: 09-01-2023 End: 09-01-2023 Patient encounter procedure Denia Rowell [facility] Start: 08-13-2023 ambulatory Denia Rowell Facility:[facility] Start: 07-21-2023 ambulatory Denia Rowell Facility [facility] Start: 07-20-2023 End: 07-20-2023 ambulatory DOMINIC ORTEGA Facility:[facility] Start: 06-30-2023 ambulatory Denia Rowell Facility [facility] Start: 06-29-2023 End: 06-29-2023 ambulatory Dewayne Richey Facility:[facility] [place] Start: 06-09-2023 End: 06-09-2023 ambulatory Denia Rowell Facility:[facility] Start: 06-09-2023 End: 06-09-2023 Patient encounter procedure Denia Rowell [facility] Start: 05-26-2023 End: 05-26-2023 ambulatory Denia Rowell Facility[facility] Start: 05-26-2023 End: 05-26-2023 Patient encounter procedure Denia Rowell [facility] Start: 04-29-2023 End: 04-29-2023 Office outpatient visit 15 minutes Gary Chávez PLUMBING AND HEATING MECHANIC-AUTOMOTIVE WELDER Work Phone: [facility] Comment on above: Coronary artery dise ase involving nooksack coronary artery of nooksack heart without angina pectoris (Primary Dx); Benign essential hypertension; Mixed hyperlipidemia; PVC's (premature ventricular contractions); 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 ([facility]); BMI 32.0-32.9,adult Start: 04-29-2023 End: 04-29-2023 ambulatory [facility] Start: 04-27-2023 End: 04-27-2023 ambulatory Denia Cordero Sorin Facility:[facility] Start: 04-27-2023 End: 04-27-2023 Patient encounter procedure Denia Rowell [facility] Start: 03-30-2023 End: 03-30-2023 Lab Drop off Dewayne Richey [facility] Start: 03-30-2023 End: 03-30-2023 Patient encounter procedure Denia Arambulaler [facility] Start: 03-30-2023 End: 03-30-2023 ambulatory Dewayne Richey Facility:[facility] Start: 03-09-2023 End: 03-09-2023 ambulatory Denia Cordero Sorin Facility[facility] Start: 03-09-2023 End: 03-09-2023 Patient encounter procedure Denia Rowell [facility] Start: 03-02-2023 End: 03-02-2023 ambulatory Ramsey Steward Other [facility] Other Start: 03-02-2023 Office outpatient vi sit 25 minutes Ramsey Steward [facility] Miguel A Start: 02-23-2023 End: 02-23-2023 ambulatory Denia L Sorin Facility[facility] Start: 02-23-2023 End: 02-23-2023 Patient encounter procedure Denia Rowell [facility] Start: 02-16-2023 End: 02-16-2023 ambulatory Denia Cordero Rowell Facility:[facility] Start: 02-16-2023 End: 02-16-2023 Patient encounter procedure Denia Rowell [facility] Start: 02-09-2023 End: 02-09-2023 ambulatory Denia Rowell Facility[facility] Start: 02-09-2023 End: 02-09-2023 Patient encounter procedure Denia Rowell [facility] Start: 02-02-2023 End: 02-02-2023 ambulatory Denia Rowell Facility[facility] Start: 02-02-2023 End: 02-02-2023 Patient encounter procedure Denia Rowell [facility] Start: 01-26-2023 End: 01-26-2023 ambulatory Denia Rowell [facility] Start: 01-19-2023 End: 01-19-2023 ambulatory Denia Rowell Facility[facility] Start: 01-12-2023 End: 01-12-2023 ambulatory Denia Rowell Facility[facility] Start: 01-12-2023 End: 01-12-2023 Patient encounter procedure Denia Rowell [facility] Start: 01-05-2023 End: 01-05-2023 ambulatory Denia Rowell Facility[facility] Start: 01-05-2023 End: 01-05-2023 Patient encounter procedure Denia Rowell [facility] Start: 12-29-2022 End: 12-29-2022 ambulatory Denia Rowell Facility[facility] Start: 12-29-2022 End: 12-29-2022 Patient encounter procedure Denia Rowell [facility] Start: 12-22-2022 End: 12-22-2022 ambulatory Denia Rowell Facility:[facility] Start: 12-22-2022 End: 12-22-2022 Patient encounter procedure Denia Rowell [facility] Start: 12-21-2022 End: 12-21-2022 ambulatory Dewayne Richey Facility:[facility] Mariaelena Start: 10-07-2022 Rx Renewal Domonique Hatfield Work Phone: [facility] 600 DO Work Phone: Start: 10-05-2022 End: 10-05-2022 Lab Drop off Dewayne Richey [facility] Start: 10-05-2022 End: 10-05-2022 ambulatory Dewayne Richey Facility:[facility] Start: 09-15-2022 End: 09-15-2022 ambulatory Aziz Bakchantels Other [facility] Other Start: 09-15-2022 Office outpatient vi sit 15 minutes Aziz Bakhous [facility] Miguel A Start: 07-07-2022 End: 07-08-2022 ambulatory DEWAYNE RICHEY Facility: Start: 07-07-2022 End: 07-07-2022 Lab Drop off DOMONIQUE HATFIELD [facility] Start: 06-19-2022 Office outpatient vi sit 25 minutes Domonique Hatfield Work Phone: [facility] 600 DO Work Phone: Start: 06-19-[address] Domonique Miranda acility: Start: 06-01-2022 End: 06-01-2022 ambulatory Aziz Bakhous Other [facility] Other Start: 06-01-2022 Telephone encounter Aziz Bakhous [facility] Start: 05-26-2022 End: 05-27-[address] DOMONIQUE HATFIELD . Facility: Start: 04-22-2022 End: 04-22-2022 ambulatory Aziz Bakhous Other [facility] Other Start: 04-22-2022 Office outpatient ne w 30 minutes Aziz Bakhous [facility] Start: 04-06-2022 End: 04-07-[address] DOMONIQUE HATFIELD . Facility:[facility] Start: 03-05-[address] Domonique Miranda acility: Start: 03-04-2022 Rx Renewal Domonique Hatfield Work Phone: [facility] 250 DO Work Phone: Start: 02-23-2022 Patient encounter procedure Domonique Hatfield Work Phone: [facility] 250 DO Work Phone: Start: 02-23-[address] Domonique Miranda acility: Start: 01-27-2022 AUDIT Domonique Hatfield Work Phone: [facility] 250 DO Work Phone: Start: 01-19-[address] Domonique Miranda acility: Start: 01-19-2022 Office outpatient vi sit 25 minutes Domonique Hatfield Work Phone: [facility] 250 DO Work Phone: Start: 01-19-2022 Patient encounter procedure Domonique Hatfield Work Phone: [facility] 600 DO Work Phone: Start: 01-07-2022 End: 01-08-[address] DOMONIQUE HATFIELD . Facility:[facility] Start: 12-05-2021 Office outpatient vi sit 25 minutes Domonique Hatfield Work Phone: [facility] 600 DO Work Phone: Start: 12-05-[address] Domonique Miranda acility: Start: 12-01-2021 End: 12-02-[address] DOMONIQUE HATFIELD . Facility:[facility] Start: 11-13-2021 Rx Renewal Domonique Hatfield Work Phone: [facility] 250 DO Work Phone: Start: 10-31-[address] Domonique Miranda acility: Start: 10-28-2021 Patient encounter procedure Domonique Hatfield Work Phone: [facility] 600 DO Work Phone: Start: 10-28-[address] Domonique Miranda acility: Start: 10-01-2021 End: 10-02-[address] DOMONIQUE HATFIELD . Facility: Start: 08-27-2021 Office outpatient vi sit 25 minutes Domonique Hatfield Work Phone: [facility] 600 DO Work Phone: Start: 08-27-[address] Domonique Miranda acility: Start: 08-09-2021 End: 08-10-[address] DOMONIQUE HATFIELD . Facility: Start: 08-06-2021 End: 08-07-[address] DOMONIQUE HATFIELD . Facility: Start: 07-22-2021 Patient encounter procedure [facility] Work Phone: Start: 07-22-[address] Domonique Miranda acility: Start: 06-30-2021 End: 07-03-2021 Evaluation and management of inpatient [facility] Start: 12-11-2020 Telephone encounter Domonique Bobo ht Work Phone: [facility] DO Work Phone: Start: 11-18-2020 (URG) Urgent Care Visit [facility] Urgent Care Miguel A Procedures Date Procedure Procedure Detail Performing Clinician Start: 02-22-2023 End: 04-29-2023 History of placement of stent in anterior descending branch of left coronary artery Status post insertion of drug-eluting stent into left anterior descending (LAD) artery Gary Chávez PLUMBING AND HEATING MECHANIC-AUTOMOTIVE WELDER Work Phone: Start: 07-01-2021 Thyrotropin [Units/v olume] in Serum or Plasma Gary Chávez PLUMBING AND HEATING MECHANIC-AUTOMOTIVE WELDER Work Phone: Start: 11-16-2019 Mammography Gary jane PLUMBING AND HEATING MECHANIC-AUTOMOTIVE WELDER Work Phone: Appendectomy Domonique Hatfield Work Phone: Appendectomy DOMONIQUE HATFIELD Arthroscopy DOMONIQUE HATFIELD Comment on above: left knee Bilateral cataracts (disorder) DOMONIQUE HATFIELD Cardiac catheterization Domonique Hatfield Work Phone: Cataract surgery Domonique rios Work Phone: Cholecystectomy Domonique Hatfield Work Phone: Cholecystectomy DOMONIQUE HATFIELD History of placement of stent in anterior descending branch of left coronary artery Status post insertion of drug-eluting stent into left anterior descending (LAD) artery Domonique Gonzalezight Work Phone: Hysterectomy Domonique Mason Hatfield Work Phone: Laparoscopy Domonique Hatfield Work Phone: Lumpectomy of breast Domonique Mason Faria night Work Phone: Operation on bladder Domonique Faria night Work Phone: Operative procedure on knee Domonique Hatfield Work Phone: Tonsillectomy and adenoidectomy Domonique Hatfield Work Phone: Tonsillectomy and adenoidectomy DOMONIQUE HATFIELD Total colonoscopy Domonique Bobo ht Work Phone: Plan of Treatment Date Care Activity Detail Author Start: 01-26-2024 End: 01-26-2024 Patient encounter procedure 01/26/2024 10:00 AM EST Office Visit [facility] [address] [facility] [address] [place] [address] Zak Hancock DO [address] [facility] [address] [place] [address] [facility] Start: 04-21-2023 FUV, Provider: Zak Nguyen, Status: Pen, Time: 10:20 AM FUV, Provider: Zak Nguyen, Status: Pen, Time: 10:20 AM -[facility] 600 DO Work Phone: Start: 07-01-2022 Thyroid stimulating hormone measurement TSH Level [facility] Start: 06-19-2022 FUV, Provider: Zak Nguyen, Status: Pen, Time: 10:10 AM FUV, Provider: Zak Nguyen, Status: Pen, Time: 10:10 AM -[facility] 250 DO Work Phone: Start: 01-19-2022 FUV, Provider: Zak Nguyen, Status: Pen, Time: 10:40 AM FUV, Provider: Zak Nguyen, Status: Pen, Time: 10:40 AM -[facility] 600 DO Work Phone: Start: 12-05-2021 FUV, Provider: Zak Nguyen, Status: Pen, Time: 10:20 AM FUV, Provider: Zak Nguyen, Status: Pen, Time: 10:20 AM -[facility] 600 DO Work Phone: Start: 10-28-2021 HOLTER 48, Provider: SHAUN TADEO TELEVISION ANCHOR 1,[id number], Status: Pen, Time: 1:00 PM HOLTER 48, Provider: SHAUN TADEO TELEVISION ANCHOR 1,[id number], Status: Pen, Time: 1:00 PM -[facility] 600 DO Work Phone: Start: 10-01-2021 Hemoglobin A1c measurement Diabetes: Hemoglobin A1C [facility] Start: 08-27-2021 FUV, Provider: Zak Nguyen, Status: Pen, Time: 9:20 AM FUV, Provider: Zak Nguyen, Status: Pen, Time: 9:20 AM -[facility] 250 DO Work Phone: Start: 08-13-2021 FUV, Provider: Zak Nguyen, Status: Pen, Time: 9:15 AM FUV, Provider: Zak Nguyen, Status: Pen, Time: 9:15 AM [facility] 250 DO Work Phone: Start: 11-15-2020 Screening for malignant neoplasm of breast Mammogram [facility] Start: 11-09-2019 Pneumococcal Vaccine: 65+ Years (2 - PCV) Pneumococcal Vaccine: 65+ Years (2 - PCV) [facility] Start: 1998 Zoster Vaccines (1 of 2) Zoster Vaccines (1 of 2) [facility] Start: 1970 DTaP/Tdap/Td Vaccines (1 - Tdap) DTaP/Tdap/Td Vaccines (1 - Tdap) [facility] Start: 1966 Hepatitis C screening Hepatitis C Screening [facility] Start: 1958 Diabetic foot examination Diabetes: Foot Exam [facility] Start: 1958 Glaucoma screening Diabetes: Retinopathy Screening [facility] Start: 1948 Cyanocobalamin vitamin b-12 Vitamin B-12 [facility] Start: 1948 Diabetes: Celiac Disease Screening Diabetes: Celiac Disease Screening [facility] Start: 1948 Lipid panel Lipid Panel [facility] Start: 1948 Medicare Annual Wellness Visit Medicare Annual Wellness Visit (AWV) [facility] Start: 1948 Screening for malignant neoplasm of colon [facility] Start: 1948 Screening for osteoporosis Bone Density Scan [facility] Immunizations Immunization Date Immunization Notes Care Provider Fa doc 12-21-2022 influenza, high dose seasonal, preservative-free Denia Rowell [facility] 01-17-2021 Pfizer-BioNTech COVID-19 Vacc 30 MCG/0.3ML Intramuscular Suspension Domonique Hatfield Work Phone: [facility] 01-14-2021 influenza virus vaccine, unspecified formulation Dewayne Richey [facility] 01-14-2021 Seasonal, quadrivale nt, recombinant, injectable influenza vaccine, preservative free Domonique Hatfield Work Phone: [facility] 250 DO Work Phone: 04-22-2020 Pfizer-BioNTech COVID-19 Vacc 30 MCG/0.3ML Intramuscular Suspension Domonique Mason GonzalezHatfield Work Phone: [facility] Comment on above: Result Comment: 2022: [id number] 04-01-2020 Pfizer-BioNTech COVID-19 Vacc 30 MCG/0.3ML Intramuscular Suspension Domonique Gonzalezight Work Phone: [facility] Comment on above: Result Comment: 2022: [id number] 11-27-2019 Flu vaccine, quadrivalent, high-dose, preservative free, age 65y+ (FLUZONE) [facility] Work Phone: [facility] Work Phone: 11-27-2019 influenza virus vaccine, unspecified formulation Dewayne Richey [facility] 11-25-2019 influenza, high dose seasonal, preservative-free Domonique Hatfield Work Phone: [facility] 04-20-2019 KENALOG - 10 mg Oxana Br [place]ault Other [facility] [place] Other 04-20-2019 Toradol per 15 mg Oxana Matteo Other Social IQ (Social Influence Quotient) [facility] [place] Other 12-05-2018 KENALOG - 10 mg Oxana Br [place] Other Social IQ (Social Influence Quotient) [facility] Other 11-08-2018 pneumococcal polysaccharide vaccine, 23 valent Domonique Hatfield Work Phone: [facility] 01-09-2018 Toradol per 15 mg Oxana Matteo Other NPM Other Payers Date Payer Category Payer Medicare [employer]ARE [id number] 2022-Present [address] [place] [address] [id number] 1959 Medicare [id number] 1959 Private Health Insurance [id number] 1948 Unknown [id number] 2.16.840.1.440751.3.579.2. 903 1948 Unknown [id number] 2.16.840.1.640613.3.579.2. 356 1948 Unknown [id number] 2.16.840.1.220072.3.579.2. 356 1948 Unknown [id number] 2.16.840.1.440573.3.579.2. 356 1948 Unknown [id number] 2.16.840.1.210970.3.579.2. 356 1948 Unknown [id number] 2.16.840.1.317611.3.579.2. 356 1948 Unknown [id number] 2.16.840.1.832287.3.579.2. 356 1948 Unknown [id number] 2.16.840.1.655665.3.579.2. 356 1948 Unknown [id number] 2.16.840.1.136179.3.579.2. 356 1948 Unknown [id number] 2.16.840.1.279327.3.579.2. 356 1948 Unknown [id number] 2.16.840.1.298937.3.579.2. 593 1948 Unknown [id number] 2.16.840.1.776542.3.579.2. 593 1948 Unknown [id number] 2.16.840.1.014579.3.579.2. 593 1948 Unknown [id number] 2.16.840.1.094302.3.579.2. 593 1948 Unknown [id number] 2.16.840.1.370450.3.579.2. 593 1948 Unknown [id number] 2.16.840.1.175707.3.579.2. 593 1948 Unknown [id number] 2.16.840.1.839092.3.579.2 59 1948 Unknown [id number] 2.16.840.1.478884.3.579.2 593 1948 Unknown [id number] 2.16.840.1.473694.3.579.2. 1244 1948 Unknown [id number] 2.16.840.1.109806.3.579.2. 72 1948 Unknown [id number] 2.16.840.1.920615.3.579.2 72 1948 Unknown [id number] 2.16.840.1.571570.3.579.2. 72 1948 Unknown [id number] 2.16.840.1.480745.3.579.2 72 1948 Unknown [id number] 2.16.840.1.037153.3.579.2. 72 1948 Unknown [id number] 2.16.840.1.348254.3.579.2 72 1948 Unknown [id number] 2.16.840.1.435108.3.579.2. 72 1948 Unknown [id number] 2.16.840.1.913893.3.579.2 1948 Unknown [id number] 2.16.840.1.606448.3.579.2 1948 Unknown [id number] 2.16.840.1.438729.3.579.2 1948 Unknown [id number] 2.16.840.1.713699.3.579.2 1948 Unknown [id number] 2.16.840.1.373994.3.579.2 1948 Unknown [id number] 2.16.840.1.032994.3.579.2 1948 Unknown [id number] 2.16.840.1.259739.3.579. 1948 Unknown [id number] 2.16.840.1.681794.3.579. 1948 Unknown [id number] 2.16.840.1.028053.3.579.2 1948 Unknown [id number] 2.16.840.1.150145.3.579. 1948 Unknown [id number] 2.16.840.1.072885.3.579.2 1948 Unknown [id number] 2.16.840.1.033035.3.579.2 1948 Unknown [id number] 2.16.840.1.994805.3.579.2 1948 Unknown [id number] 2.16.840.1.875676.3.579.2 1948 Unknown [id number] 2.16.840.1.937589.3.579.2 1948 Unknown [id number] 2.16.840.1.120428.3.579.2 1948 Unknown [id number] 2.16.840.1.616485.3.579.2. 727 1948 Unknown [id number] 2.16.840.1.759140.3.579.2. 727 1948 Unknown [id number] 2.16.840.1.680417.3.579.2. 72 1948 Unknown [id number] 2.16.840.1.970498.3.579.2. 72 1948 Unknown [id number] 2.16.840.1.143497.3.579.2. 72 1948 Unknown [id number] 2.16.840.1.966410.3.579.2. 72 1948 Unknown [id number] 2.16.840.1.282787.3.579.2. Medicare [id number] 2.16.840.1.509746.19 Medicare [id number] 2.16.840.1.338226.19 Unknown Social History Date Type Detail Facility Start: 06-19-2022 End: 04-29-2023 Caffeine use Caffeine use [facility] Comment on above: Occas coffee; Start: 06-19-2022 End: 04-29-2023 Sex Assigned At [facility] Start: 07-07-2022 End: 07-20-2023 Tobacco smoking status Never smoked tobacco (finding) [facility] Comment on above: never a smoker Tobacco smoking status Never [facility] Comment on above: never a smoker Start: 04-29-2023 Tobacco use and exposure Smokeless tobacco non-user [facility] Work Phone: Start: 04-29-2023 Alcohol intake Lifetime non-d megan (finding) [facility] Work Phone: Start: 1950 Sex Assigned At Not on file U [facility] Work Phone: Start: 04-19-2023 End: 04-29-2023 Exposure to SARS-CoV-2 (event) Not sure [facility] Functional Status Date Assessment Result Facility 07-22-2021 PHQ-9 [id number] Mild (5-9) [facility] 250 DO Work Phone: Clinical Notes 11-18-2020 to 04-29-2023 Assessment & Plan Note - ANA Mac - 04/29/2023 2:24 PM EDTAssessment & Plan Note - ANA Mac - 04/29/2023 2:24 PM EDTPatient Instructions Note Date & Type Note Facility 04-29-2023 Evaluation + Plan note Associated Problem(s): BMI 32.0-32.9,adult She is actively making lifestyle changes Weight is down 11 pounds Encouraged to continue [facility] Work Phone: 04-29-2023 Evaluation + Plan note Associated Problem(s): Diabetes (CMS/HCC) Maintained on ARB/statin Reports most recent hemoglobin A1c 6.4 [facility] Work Phone: 04-29-2023 Evaluation + Plan note Associated Problem(s): PVC's (premature ventricular contractions) CAD was initially identified during workup for PVC burden. February 2022 Holter 8.4% PVC burden Denies dizziness lightheadedness, no prior syncope. [facility] Work Phone: 04-29-2023 Miscellaneous Notes Associated Problem(s): BMI 32.0-32.9,adult She is actively making lifestyle changes Weight is down 11 pounds Encouraged to continue Associated Problem(s): Diabetes ([facility]) Maintained on ARB/statin Reports most recent hemoglobin A1c 6.4 Associated Problem(s): PVC's (premature ventricular contractions) CAD was initially identified during workup for PVC burden. February 2022 Holter 8.4% PVC burden Denies dizziness lightheadedness, no prior syncope. Associated Problem(s): Hyperlipidemia High intensity statin Annual labs through PCP Associated Problem(s): Coronary artery disease involving nooksack coronary artery of nooksack heart without angina pectoris No ACS admit or acute SD. CAD was identified on testing for high PVC burden. November 2019 mLAD PCI/Mauro 2.5/22mm (+IFR) Circumflex negative RCA negative LVEF 65% May 2021 MPI no ischemia Associated Problem(s): Benign essential hypertension Optimal in office documented in this encounter [facility] Work Phone: 04-29-2023 Evaluation + Plan note Associated Problem(s): Hyperlipidemia High intensity statin Annual labs through PCP [facility] Work Phone: 04-29-2023 Evaluation + Plan note Associated Problem(s): Coronary artery disease involving nooksack coronary artery of nooksack heart without angina pectoris No ACS admit or acute SD. CAD was identified on testing for high PVC burden. November 2019 mLAD PCI/Mauro 2.5/22mm (+IFR) Circumflex negative RCA negative LVEF 65% May 2021 MPI no ischemia T [facility] Work Phone: 04-29-2023 Evaluation + Plan note Associated Problem(s): Benign essential hypertension Optimal in office T [facility] Work Phone: 04-29-2023 History of Presen t illness Narrative Chief Complaint Doing okay Reason for Visit 9-month follow-up Patient presents to the office today for outpatient follow-up for coronary artery disease and secondary prevention. Last evaluated in clinic by Dr. Jernigan June 2022. Presents today ambulatory with steady gait. Accompanied by patient Patient denies any hospitalizations or significant changes to interval medical history since last office follow-up. She follows routinely with PCP and nephrology. History of Present Illness Patient is an extremely pleasant 72-year-old female who presents the office today without voiced cardiovascular complaints. She is able to do housework including sweeping and mopping her floors, has no stairs at home. She does go to the grocery store. She denies any change in exercise capacity or functional tolerance. Her CAD was identified during routine testing for PVC burden, she had no type of symptoms. She continues to deny any change in exercise capacity or functional tolerance. Patient reports that overall has no complaint(s) of chest pain, chest pressure/discomfort, claudication, dyspnea, exertional chest pressure/discomfort, fatigue, and irregular heart beat Daily activity: ADLs, housework, grocery store. Denies any change in exercise capacity or functional tolerance since last office visit. The importance of secondary prevention reviewed: HTN: Optimal HLD: Treated DM: Treated Smoker: Denies BMI: Reviewed the merits of healthy lifestyle choices on overall cardiovascular health. Overall patient is pleased with current state of cardiovascular health. At this time there are no indications for additional cardiovascular testing. She is now greater than 3.5 years from Mauro stenting, no high ischemic wrist and therefore we will discontinue clopidogrel. Review of Systems Cardiovascular: Negative for chest pain, dyspnea on exertion, irregular heartbeat, leg swelling, near-syncope, orthopnea, palpitations, paroxysmal nocturnal dyspnea and syncope. Visit Vitals BP 116/60 (BP Location: Left arm, Patient Position: Sitting) Pulse 80 Ht 1.575 m (5' 2 ) Wt 80.3 kg (177 lb) BMI 32.37 kg/m Smoking Status Never BSA 1.87 m Physical Exam Vitals and nursing note reviewed. HENT: Head: Normocephalic. Cardiovascular: Rate and Rhythm: Normal rate and regular rhythm. Heart sounds: Normal heart sounds. Pulmonary: Effort: Pulmonary effort is normal. Breath sounds: Normal breath sounds. Abdominal: Palpations: Abdomen is soft. Musculoskeletal: Right lower leg: No edema. Left lower leg: No edema. Skin: General: Skin is warm and dry. Neurological: General: No focal deficit present. Mental Status: She is alert. Psychiatric: Mood and Affect: Mood normal. Behavior: Behavior normal. No Known Allergies Current Outpatient Medications Medication Instructions amLODIPine (Norvasc) 5 mg tablet 1 tablet, oral, Daily aspirin 81 mg EC tablet 1 tablet, oral, Daily HumaLOG KwikPen Insulin 100 unit/mL injection subcutaneous insulin glargine (Lantus U-100 Insulin) 100 unit/mL injection subcutaneous Januvia 100 mg tablet 1 tablet, oral, Daily losartan (Cozaar) 100 mg tablet 1 tablet, oral, Daily meclizine (Antivert) 12.5 mg tablet 1 tablet, oral, 3 times daily PRN nitroglycerin (NITROSTAT) 0.4 mg, sublingual, Every 5 min PRN rosuvastatin (CRESTOR) 20 mg, oral, Nightly traZODone (DESYREL) 25 mg, oral, Nightly Assessment: Benign essential hypertension Optimal in office Coronary artery disease involving nooksack coronary artery of nooksack heart without angina pectoris No ACS admit or acute SD. CAD was identified on testing for high PVC burden. November 2019 mLAD PCI/Mauro 2.5/22mm (+IFR) Circumflex negative RCA negative LVEF 65% May 2021 MPI no ischemia Hyperlipidemia High intensity statin Annual labs through PCP PVC's (premature ventricular contractions) CAD was initially identified during workup for PVC burden. February 2022 Holter 8.4% PVC burden Denies dizziness lightheadedness, no prior syncope. Diabetes (CMS/HCC) Maintained on ARB/statin Reports most recent hemoglobin A1c 6.4 BMI 32.0-32.9,adult She is actively making lifestyle changes Weight is down 11 pounds Encouraged to continue Plan: Through informed decision making process incorporating patients unique circumstances, the following treatment plan will be initiated: 1. Prescription drug management of cardiovascular medication for efficacy, adherence to treatment, side effect assessment and polypharmacy. Current treatment clinically warranted and to continue with following modifications: - Stop clopidogrel 2. Return for follow-up; in the interim, contact the office if new symptoms arise. 9 months Discussed the dynamic nature of coronary artery disease and the importance of seeking medical attention if new symptoms arise. Gary Chávez MSN, PLUMBING AND HEATING MECHANIC-AUTOMOTIVE WELDER, PMHNP-[facility] Please excuse any errors in grammar or translation related to this dictation. Voice recognition software was utilized to prepare this document. documented in this encounter [facility] Work Phone: 04-29-2023 Instructions ANA Mac - 04/29/2023 2:00 PM EDT Please bring all medicines, vitamins, and herbal supplements with you when you come to the office. Prescriptions will not be filled unless you are compliant with your follow up appointments or have a follow up appointment scheduled as per instruction of your physician. Refills should be requested at the time of your visit. PLAN: Through informed decision making process incorporating patients unique circumstances, the following treatment plan will be initiated: 1. Prescription drug management of cardiovascular medication for efficacy, adherence to treatment, side effect assessment and polypharmacy. Current treatment clinically warranted and to continue with following modifications: - Stop clopidogrel 2. Return for follow-up; in the interim, contact the office if new symptoms arise. 9 months Discussed the dynamic nature of coronary artery disease and the importance of seeking medical attention if new symptoms arise. documented in this encounter [facility] Work Phone: 03-02-2023 Evaluation note Encounter Date Diagnosis Assessment Notes Feb, Diabetic nephropathy associated with type 1 diabetes mellitus (ICD-10 - E10.21) Patient follows with Dr. Hatfield in primary care office for diabetes management. Last hemoglobin A1c remains below 7%. I explained the patient the necessity of controlling diabetes to preserve kidney function. Patient might benefit from adding SLG 2 inhibitor which proven to slow CKD progression.I will defer this to the primary physician Feb, Chronic kidney disease, stage 3b (ICD-10 - N18.32) Likely from hypertensive and diabetic nephropathy. Serum creatinine fluctuate between 1.0 to 1.3 mg/dL and GFR between 40 and 55 ml/min/1.7 m2. UA is benign except leukocyte esterase large. No UTI symptoms. Protein to creatinine ratio 200 mg/g. Patient [...] follow-up with the patient in 6 months Feb, Hyperlipidemia, unspecified hyperlipidemia type (ICD-10 - E78.5) LDL within target. LDL goal below 100 to reduce cardiovascular disease and CKD patient. Patient is on statin. She follows with her PCP Feb, Primary hypertension (ICD-10 - I10) Blood pressure target is below 130/80. Will continue same BP medications Advised the patient to follow low Na diet and to monitor BP at home NPM Other 08-08-2023 Evaluation note* Encounter Date Diagnosis Assessment Notes Treatment Notes Treatment Clinical Notes Sep, Diabetic nephropathy associated with type [...] dose of amlodipine 5 mg p.o. daily NPM Other 04-18-2023 NotePROCEDURE: US KIDNEYS DATE: 05/26/2022 [...] Electronically authenticated by: RADHA OGLESBY Date: 2022-05-26 12:07[facility]03-15-2023 Evaluation note* Encounter Date Diagnosis Assessment Notes [...] 10 mg if blood pressure remains uncontrolled NPM Other 10-11-2021 Evaluation note* Encounter Date Diagnosis Assessment Notes Treatment Notes Treatment Clinical Notes Nov, Injury of back, initial encounter (ICD-10 - S39.92XA) patient is in so much pain she is unable to speak and breath; patient is tearful and states pain is intolerable. Recommend ER due to level of discomfort at this time. NPM Other Evaluation + Plan note Future Appointments Appointment Date:10/05/2022 04:40:00 PM Scheduled Provider:Dewayne Richey MD Location:[facility] Future Appointments Appointment Date:12/29/2022 11:00:00 AM Scheduled Provider: Location:[facility] Appointment Type: Medicare Wellness Subsequent Appointment Date:04/05/2023 10:00:00 AM Scheduled Provider:Dewayne Richey MD Location:[facility] Appointment Type: Open Diagnostic Tests Pending * CBC w/ Auto Diff 10/05/22 * Comprehensive Metabolic Panel 10/05/22 * Lipid Panel 10/05/22 * HgbA1c 10/05/22 * Microalbumin Level Urine 10/05/22 * U Protein/Creat Ratio 10/05/22 [facility] Future Appointments Appointment Date:12/29/2022 10:00:00 AM Scheduled Provider:Denia Ding Location:[facility] Appointment Type:BH Therapy 60 Appointment Date:04/05/2023 10:00:00 AM Scheduled Provider:Deawyne Richey MD Location:[facility] Appointment Type: Open Appointment Date:12/22/2023 11:00:00 AM Scheduled Provider: Location:[facility] Appointment Type:FM Medicare Wellness Subsequent [facility] evaluation + Plan note Future Appointments Appointment Date:01/05/2023 10:00:00 AM Scheduled Provider:Denia Ding Location:[facility] Appointment Type:BH Therapy 60 Appointment Date:04/05/2023 10:00:00 AM Scheduled Provider:Dewayne Richey MD Location:[facility] Appointment Type:FM Open Appointment Date:12/22/2023 11:00:00 AM Scheduled Provider: Location:[facility] Appointment Type:FM Medicare Wellness Subsequent [facility] evaluation + Plan note Future Appointments Appointment Date:01/12/2023 10:00:00 AM Scheduled Provider:Denia Ding Location:[facility] Appointment Type:BH Therapy 60 Appointment Date:04/05/2023 10:00:00 AM Scheduled Provider:Dewayne Richey MD Location:[facility] Appointment Type: Open Appointment Date:12/22/2023 11:00:00 AM Scheduled Provider: Location:[facility] Appointment Type: Medicare [facility] Behavioral Health evaluation + Plan note Future Appointments Appointment Date:01/19/2023 01:00:00 PM Scheduled Provider:Denia Ding Location:[facility] Appointment Type:BH Therapy 60 Appointment Date:04/05/2023 10:00:00 AM Scheduled Provider:Dewayne Richey MD [facility] Appointment Type: Open Appointment Date:12/22/2023 11:00:00 AM Scheduled Provider: Location:[facility] Appointment Type:FM Medicare Wellness Subsequent [facility] Behavioral Health evaluation + Plan note Future Appointments Appointment Date:02/09/2023 11:00:00 AM Scheduled Provider:Denia Ding Location:[facility] Appointment Type:BH Therapy 60 Appointment Date:03/30/2023 10:00:00 AM Scheduled Provider:Dewayne Richey MD [facility] Appointment Type: Open Appointment Date:12/22/2023 11:00:00 AM Scheduled Provider: Location:[facility] Appointment Type:FM Medicare Wellness Subsequent [facility] Behavioral Health evaluation + Plan note Future Appointments Appointment Date:02/16/2023 10:00:00 AM Scheduled Provider:Denia Ding Location:[facility] Appointment Type:BH Therapy 60 Appointment Date:03/30/2023 10:00:00 AM Scheduled Provider:Dewayne Richey MD [facility] Appointment Type:FM Open Appointment Date:12/22/2023 11:00:00 AM Scheduled Provider: Location:[facility] Appointment Type:FM Medicare Wellness Subsequent [facility] Behavioral Health evaluation + Plan note Future Appointments Appointment Date:02/23/2023 02:00:00 PM Scheduled Provider:Denia Ding Location:[facility] Appointment Type:BH Therapy 60 Appointment Date:03/30/2023 10:00:00 AM Scheduled Provider:Dewayne Richey MD Location:[facility] Appointment Type:FM Open Appointment Date:12/22/2023 11:00:00 AM Scheduled Provider: Location:[facility] Appointment Type: Medicare Wellness [facility] Behavioral Health evaluation + Plan note Future Appointments Appointment Date:03/09/2023 11:00:00 AM Scheduled Provider:Denia Ding Location:[facility] Appointment Type:BH Therapy 60 Appointment Date:03/30/2023 10:00:00 AM Scheduled Provider:Dewayne Richey MD Location:[facility] Appointment Type:FM Open Appointment Date:12/22/2023 11:00:00 AM Scheduled Provider: Location:[facility] Appointment Type: Medicare Wellness [facility] Behavioral Health evaluation + Plan note Future Appointments Appointment Date:03/23/2023 10:00:00 AM Scheduled Provider:Denia Ding Location:[facility] Appointment Type:BH Therapy 60 Appointment Date:03/30/2023 10:00:00 AM Scheduled Provider:Dewayne Richey MD Location:[facility] Appointment Type:FM Open Appointment Date:12/23/2023 09:30:00 AM Scheduled Provider: Location:[facility] Appointment Type:FM Medicare Wellness [facility] Behavioral Health evaluation + Plan note Future Appointments Appointment Date:04/13/2023 09:00:00 AM Scheduled Provider:Denia Ding Location:[facility] Appointment Type:BH Therapy 60 Appointment Date:06/29/2023 10:00:00 AM Scheduled Provider:Dewayne Richey MD Location:[facility] Appointment Type:FM Open Appointment Date:12/23/2023 09:30:00 AM Scheduled Provider: Location:[facility] Appointment Type: Medicare [facility] Behavioral Health evaluation + Plan note Future Appointments Appointment Date:05/12/2023 12:00:00 PM Scheduled Provider:Denia Ding Location:[facility] Appointment Type:BH Therapy 60 Appointment Date:06/29/2023 10:00:00 AM Scheduled Provider:Dewayne Richey MD Location:[facility] Appointment Type: Open Appointment Date:12/23/2023 09:30:00 AM Scheduled Provider: Location:[facility] Appointment Type:FM Medicare Wellness [facility] Behavioral Health evaluation + Plan note Future Appointments Appointment Date:06/09/2023 05:00:00 PM Scheduled Provider:Denia Ding Location:[facility] Appointment Type:BH Therapy 60 Appointment Date:06/29/2023 10:00:00 AM Scheduled Provider:Dewayne Richey MD Location:[facility] Appointment Type: Open Appointment Date:12/23/2023 09:30:00 AM Scheduled Provider: Location:[facility] Appointment Type: Medicare Wellness [facility] Behavioral Health evaluation + Plan note Future Appointments Appointment Date:06/29/2023 10:00:00 AM Scheduled Provider:Dewayne Richey MD Location:[facility] Appointment Type:FM Open Appointment Date:12/23/2023 09:30:00 AM Scheduled Provider: Location:[facility] Appointment Type:FM Medicare Wellness Subsequent [facility] Behavioral Health evaluation + Plan note Future Appointments Appointment Date:09/15/2023 10:00:00 AM Scheduled Provider:Denia Ding Location:[facility] Appointment Type:BH Therapy 60 Appointment Date:09/28/2023 10:00:00 AM Scheduled Provider:Dewayne Richey MD Location:[facility] Appointment Type:FM Open Appointment Date:09/29/2023 10:00:00 AM Scheduled Provider:Denia Ding Location:[facility] Appointment Type:BH Therapy 60 Appointment Date:10/13/2023 10:00:00 AM Scheduled Provider:Denia Ding Location:[facility] Appointment Type:BH Therapy 60 Appointment Date:12/23/2023 01:00:00 PM Scheduled Provider: Location:[facility] Appointment Type: Medicare Wellness [facility] Behavioral Health evalceqqov + Plan note Future Appointments Appointment Date:09/28/2023 10:00:00 AM Scheduled Provider:Dewayne Richey MD Location:[facility] Appointment Type: Open Appointment Date:09/29/2023 10:00:00 AM Scheduled Provider:Denia Ding Location:[facility] Appointment Type:BH Therapy 60 Appointment Date:10/13/2023 10:00:00 AM Scheduled Provider:Denia Ding Location:[facility] Appointment Type:BH Therapy 60 Appointment Date:12/23/2023 01:00:00 PM Scheduled Provider: Location:[facility] Appointment Type: Medicare [facility] Behavioral Health evalvmrxve noteNo [facility] [employer] [facility] Other Evaluation note* Diagnosis Coronary artery disease involving nooksack coronary artery of nooksack heart without angina pectoris- Primary Benign essential hypertension Essential hypertension, benign Mixed hyperlipidemia PVC's (premature ventricular contractions) Other premature beats 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 ([facility]) BMI 32.0-32.9,adult documented in this encounter [facility] Work Phone: History general Narrative - Reported* Type Description Date [...] History bladder sling Hospitalization History see above NPM Other History general Narrative - Reported* Type Description Date [...] see above Hospitalization History 4 CHILD BIRTHS NPM Other History of Present illness Narrative* Patient [...] our next steps are going to be. -[facility] 600 DO Work Phone: History of Present illness Narrative* Patient returns in follow-up of problems as noted. In the interim she has had no angina CHF or arrhythmia symptomatology. She weaned off beta-feng therapy and repeat Holter demonstrated frequent PVCs [...] lipids also appear to be adequately addressed. [facility] [employer] Work Phone: History of Present illness Narrative* [...] the merits of diet and weight loss. [facility] 250 DO Work Phone: History of Present [...] to call if they arise or occur. [facility] 600 DO Work Phone: Hospital course Narrative No data available for this section [facility] Dis[facility] instructions No data available for this section [facility] No data available for this section [facility]Reason for [facility] (narrative)* Consultation (Routine) - Authorized Specialty Diagnoses / Procedures Referred By Fallon rios Referred To Contact Cardiology Diagnoses Coronary artery disease involving nooksack coronary artery of nooksack heart without angina pectoris Procedures Follow Up In Cardiology Gary Chávez APRN-CNP [address] [facility] [address], [address] [address] Referral ID Status Reason Start Date Expiration Date V isits Requested Visits Authorized [id number] Authorized 04/29/2023 04/28/2024 1 1 [facility] Work Phone: Family History No Family History Records FoundUnknown [...] Advanced Directives Records Found Chief Complaint NETTA MCNULTY is being seen for an annual follow-up of [place] Abnormal Holter.NETTA MCNULTY is being seen for Testing results.NETTA MCNULTY is being seen for a 4-6 weeks week follow-up of.NETTA MCNULTY is being seen for a 4-6 weeks week follow-up of.NETTA MCNULTY is being seen for a 6 month follow-up of. Additional Source Comments INFORMATION SOURCE (unrecogn ized section and content) DATE CREATED AUTHOR 07/31/2021 [facility] DATE CREATED AUTHOR AUTHOR'S ORGANIZ ATION 06/21/2022 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 [facility] [employer] [facility]. provides no warranty or guarantee of the accuracy or completeness of information in this document.
== END 2023-09-22 07:57 | disposition home or self-care (01) ==
LOC: LAB 09-27 07:56
PROVIDERS: PCP Family Medicine; Visit Provider Internal Medicine Nephrology
DX: E10.21 Type 1 diabetes mellitus with diabetic nephropathy (principal); N18.32 Chronic kidney disease, stage 3b; E78.5 Hyperlipidemia, unspecified; I12.9 Hypertensive chronic kidney disease with stage 1 through stage 4 chronic kidney disease, or unspecified chronic kidney disease
CPT/HCPCS: 36415; 80053; 82306; 82570; 83735; 83970; 84100; 84156; 84550; 85027

== ENCOUNTER 2024-01-03 09:13 | Outpatient (OUT) | payer MEDICARE, SELFPAY ==
--- NOTE | 2024-01-03 09:21 | MM_ITS ---
Patient Name: NETTA DAWSON MR#: [id number] : 1950 Exam Date: 01/03/2024 Ordering Doctor: DR. DEWAYNE RICHEY . RADIOLOGY REPORT PROCEDURE: MM TOMOSYNTHESIS SCREENING BI COMPARISON: MM TOMOSYNTHESIS SCREENING BI, 12/30/2022. MG MAMM SCREEN 3D LESIA CAD, 12/01/2021. MG MAMM SCREEN 3D LESIA CAD, 11/28/2020. MG MAMM LESIA SCRN W CAD DIG, 04/17/2013. INDICATIONS: Screening Calculator Name NCI Breast Cancer Risk Assessment Tool 5 Year Breast Cancer Risk 1.50% Lifetime Breast Cancer Risk 3.30% Personal Breast Cancer No Personal Ovarian Cancer No Treatments None Family Cancers None LOCATION: [facility] BREAST COMPOSITION: There are scattered areas of fibroglandular density. FINDINGS: DIAGNOSTIC CATEGORY 2--BENIGN FINDING: RIGHT BREAST: No significant suspicious finding. No significant change has occurred. Scattered benign-appearing calcifications are present. LEFT BREAST: No significant suspicious finding. No significant change has occurred. Scattered benign-appearing calcifications are present. RECOMMENDATIONS: ROUTINE MAMMOGRAM AND CLINICAL EVALUATION IN 12 MONTHS. PLEASE NOTE: A NORMAL MAMMOGRAM DOES NOT EXCLUDE THE POSSIBILITY OF BREAST CANCER. A CLINICALLY SUSPICIOUS PALPABLE LUMP SHOULD BE BIOPSIED. Dictated by: Daniel Patel M.D. on 01/04/2024 at 14:06 Approved by: Daniel Patel M.D. on 01/04/2024 at 14:09
--- OUTSIDE RECORDS SUMMARY | 2024-01-03 09:36 | XMS_ITS | CCD ---
Author Organization [facility] CliniSyil Care Team Providers Care 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 Name Role Phone Domonique Hatfield Unavailable Unavailable Unavailable [facility] Consulting MIKEY Olson Attending Unavailable [...] Zak Kendall Attending Unavailable McGuinn II, Dr. aZk Kendall Referring Unavailable Hatfield, Dr. Domonique Elena [...] Wendy HUERTA, Dr. Zak Kendall Attending Unavailable Abramuinpatricia II, Dr. Zak Kendall Referring Unavailable DEWAYNE [...] HATFIELD ., DR DOMONIQUE Cuevas Consulting Unavailable AHTFIELD ., DR DOMONIQUE Cuevas Primary Care Unavailable HATFIELD ., DR DOMONIQUE Cuevas Admitting Unavailable HATFIELD ., DR DOMONIQUE Cuevas Attending Unavailable HATFIELD ., DR DOMONIQUE Cuevas Consulting Unavailable HATFIELD ., DR DOMONIQUE Cuevas Admitting Unavailable HATFIELD ., DR DOMONIQUE Cuevas Attending Unavailable HATFIELD ., DR DOMONIQUE Cuevas Consulting Unavailable HATFIELD ., DR DOMONIQUE Cuevas Primary Care Unavailable [place], DR JAVAD Katz Consulting Unavailable HATFIELD ., [...] Physician Domonique Hatfield MD Primary Care Provider GARY CHÁVEZ Attending Unavailable DOMONIQUE HATFIELD Primary Care Unavailable BRAIN Rowell Attending Unavailable BRAIN Rowell Attending Unavailable BRAIN Rowell Attending Unavailable BRAIN Rowell Attending Unavailable DOMINIC ORTEGA Attending Unavailable Dewayne Richey. Attending Unavailable BRAIN Rowell Attending Unavailable Rowell, STAFF AIR DEFENSE OFFICER Denia L Attending Unavailable Rowell, STAFF AIR DEFENSE OFFICER Denia L Attending Unavailable Rowell, STAFF AIR DEFENSE OFFICER Denia L Attending Unavailable Rowell, STAFF AIR DEFENSE OFFICER Denia L Attending Unavailable Rowell, STAFF AIR DEFENSE OFFICER Denia L Attending Unavailable Rowell, STAFF AIR DEFENSE OFFICER Denia L Attending Unavailable Rowell, STAFF AIR DEFENSE OFFICER Denia L Attending Unavailable Dewayne Richey ERodger Attending Unavailable Dewayne Richey ERodger Attending Unavailable Mat, Dewayne E. Admitting Unavailable Mat Dewayne ERodger Admitting Unavailable Dewayne Richey E. Attending Unavailable Rowell, STAFF AIR DEFENSE OFFICER Denia L Attending Unavailable Jennifer, Pilar L Attending Unavailable Dewayne Richey ERodger Attending Unavailable Dewayne Richey ERodger Attending Unavailable Rowell, STAFF AIR DEFENSE OFFICER Denia L Attending Unavailable Rowell, STAFF AIR DEFENSE OFFICER Denia L Attending Unavailable Rowell, STAFF AIR DEFENSE OFFICER Denia L Attending Unavailable Rowell, STAFF AIR DEFENSE OFFICER Denia L Attending Unavailable Rowell, STAFF AIR DEFENSE OFFICER Denia L Attending Unavailable Rowell, STAFF AIR DEFENSE OFFICER Denia L Attending Unavailable Rowell, STAFF AIR DEFENSE OFFICER Denia L Attending Unavailable Dewayne Richey ERodger Attending Unavailable Dewayne Richey ERodger Attending Unavailable Junaid Richeyuel ERodger Admitting Unavailable Dewayne Richey ERodger Attending Unavailable Mat, Dewayne ERodger Admitting Unavailable Rowell, Denia L Attending Unavailable Rowell, Denia L Attending Unavailable Rowell, Denia L Attending Unavailable Rowell, Denia L Attending Unavailable Rowell, Denia L Attending Unavailable Rowell, Denia L Attending Unavailable Mat Dewayne ERodger Attending Unavailable Allergies Allergy Classification Reported Allergen(s) Allergy Type Date of Onset Reaction(s) Facility (20 sources) Diclofenac / miSOPROStol; Translations: [diclofenac-mis oprostol] Drug Allergy Unknown (qualifier value) [facility] (2 sources) Diclofenac / miSOPROStol; Translations: [Arthrotec] Drug Allergy [facility] (2 sources) No Known Medication Allergies; Translations: [No Known Medication Allergies] Propensity to adverse reactions (disorder) [facility] Medications Current Medications Medication Drug Class(es) [...] 0 Start Date: 05/25/22 Status: Ordered Start: 11-28-2019 take 81 mg by mouth once daily Aspirin Active 81 MG PO Daily 0 November 28, 2019 12:00am biotin 1 mg chewable tablet (18 sources) Start: 09-28-2023 take 1000 ug by mouth once daily Biotin Active 1000 MCG PO Daily September 28, 2023 12:00am take 1 tablet by li th every [...] with meals Orally Once a day Active cinnamon bark 500 mg oral capsule (13 [...] Refills(s) 0 Start Date: 05/25/22 Status: Ordered escitalopram 5 mg oral tablet (8 sources) Serotonin Reuptake Inhibitor Start: 09-27-2023 take 1 tablet by mouth once daily Lexapro 5 mg oral tablet 5 mg = 1 tab(s), Oral, Daily, # 90 tab(s), Refills(s) 0, Pharmacy: [id number], 158, cm, 09/27/23 13:00:00 EDT, Height/Length Dosing, 77.8, kg, 09/27/23 13:00:00 EDT, Weight Dosing Start Date: 09/27/23 Status: Ordered Foltanx oral tablet (14 sources) Start: 03-30-2023 Foltanx oral tablet 1 tab(s), Oral, Daily, 90 tab(s), Refill(s) 0, [facility] #[id number], 158, cm, 03/30/23 10:02:00 EST, Height/Length Dosing, 82.6, kg, 03/30/23 10:02:00 EST, Weight Dosing Start Date: 03/30/23 Status: Ordered Start: 12-22-2022 Foltanx oral t ablet 1 tab(s), Oral, Daily, 90 tab(s), Refill(s) 0, [facility] #[id number], 158, cm, 12/21/22 13:46:00 EST, Height/Length Dosing, 81.6, kg, 12/21/22 13:46:00 EST, Weight Dosing Start Date: 12/22/22 Status: Ordered Freestyle Sam 2 Flash Glucose Monitoring 14 Day System (Sensor) (13 sources) Start: 11-12-2023 Freestyle Libr e 2 Flash Glucose Monitoring 14 Day System (Sensor) Freestyle Sam 2 Flash Glucose Monitoring 14 Day System (Sensor), See Instructions, 6 EA, 0, Freestyle Sam 2 Flash Glucose Monitoring 14 Day System (Sensor). Replace sensor every 14 days., [facility], Supply, 158, cm, 09/27/23 13:00:00 EDT, Height/Length Dosing, 77.8, kg, 09/27/23 13:00:00 EDT, Weight Dosing Start Date: 11/12/23 Status: Ordered Start: 08-17-2023 Freestyle Libr e 2 Flash [...] Replace sensor every 14 days., [facility] #[id number], Supply, 158, cm, 03/30/23 10:02:00 EST, Height/Length Dosing, 82.6, kg, 03/30/23 10:02:00 EST, Weight Dosing Start Date: 04/20/23 Status: Ordered HumaLOG KwikPen (1 source) HumaLOG KwikPen Active 3 ml insulin glargine 100 unt/ml pen injector (20 sources) Insulin Analog Start: 10-29-2023 Lantus Solostar Pen 100 units/mL subcutaneous solution See Instructions, INJECT SUBCUTANEOUSLY 15 UNITS ONCE DAILY AT BEDTIME, # 15 mL, Refills(s) 3, Pharmacy: [facility], 158, cm, 09/27/23 13:00:00 EDT, Height/Length Dosing, 77.8, kg, 09/27/23 13:00:00 EDT, Weight Dosing Start Date: 10/29/23 Status: Ordered Start: 09-28-2023 inject 15 [IU] by sandhu bcutaneous injection once daily in the evening Insulin Glargine (Lantus U-100 Insulin) 100 unit/mL solution Active 15 UNIT SUBCUT Every evening September 28, 2023 10:35am Start: 10-21-2022 Lantus Solosta r Pen 100 units/mL subcutaneous solution 15 unit(s), SubCutaneous, Once a day (at bedtime), # 15 mL, Refills(s) 3, Pharmacy: [facility] ([facility]), 157.5, cm, 10/05/22 16:38:00 EDT, Height/Length Dosing, 82.4, kg, 10/05/22 16:38:00 EDT, Weight Dosing Start Date: 10/21/22 Status: Ordered Start: 05-25-2022 Lantus Solosta r Pen 100 units/mL subcutaneous solution 15 unit(s), SubCutaneous, Once a day (at bedtime), Refills(s) 0 Start Date: 05/25/22 Status: Ordered Start: 11-26-2019 End: 09-28-2023 inject 20 [IU] by subcutaneous injection twice daily Insulin Glargine (Lantus U-100 Insulin) 100 unit/mL solution Discontinued 20 UNIT SUBCUT Twice daily November 26, 2019 12:00am September 28, 2023 10:40am sliding scale insulin glargine (Lantus U-100 Insulin) 100 unit/mL [...] pen injector (20 sources) Insulin Analog Start: 10-12-2023 HumaLOG KwikPe n 100 units/mL injectable solution See Instructions, INJECT SUBCUTANEOUSLY BEFORE MEALS & AT BEDTIME COVERAGE 150-200 2U, 201-250 4U, 251-300 6U. 301-350 8U. 351-400 10U WITH CARB COVERAGE, # 45 mL, Refills(s) 3, Pharmacy: [facility], 158, cm, 09/27/23 13:00:00 EDT, Height/Length Dosing, 77.8, kg, 09/27/23 13:00:00 EDT, Weight Dosing Start Date: 10/12/23 Status: Ordered Start: 12-01-2022 HumaLOG KwikPe n 100 units/mL injectable solution See Instructions, AC & HS coverage 150-200 2U, 201-250 4U, 251-300 6U. 301-350 8U. 351-400 10U with carb coverage, # 15 EA, Refills(s) 3, [facility]), 157.5, cm, 10/05/22 16:38:00 EDT, Height/Length Dosing, 82.4, kg, 10/05/22 16:38:00 EDT, Weight Dosing Start Date: 12/01/22 Status: Ordered Start: 05-25-2022 HumaLOG KwikPe n 100 units/mL injectable solution See Instructions, AC & HS coverage 150-200 2U, 201-250 4U, 251-300 6U. 301-350 8U. 351-400 10U with carb coverage, Refills(s) 0 Start Date: 05/25/22 Status: Ordered Start: 11-26-2019 End: 11-26-2019 Insulin Lispro (Humalog Kwik pen Insulin) 100 unit/mL insulin pen Discontinued 20 UNIT SUBCUT Twice daily November 26, 2019 12:00am November 26, 2019 12:18pm HumaLOG KwikPen 100 UNIT/ML as directed Subcutaneous SLIDING SCALE Active P-Tzprenfmorks-X0-B12 3-35-2 MG (4 sources) take 1 tablet by mouth twice daily S-Oeqmeprjqcof-H7-B12 3-35-2 MG 1 tablet Orally Twice a day Active latanoprost 0.05 mg/ml ophthalmic solution (11 sources) Prostaglandin Analog Start : 09-27 take 1 drop(s) into the eye(s) once daily in the evening Latanoprost Active 1 DROPS OPHTHALMIC Every evening September 28, 2023 12:00am Start: 07-20-2023 latanoprost Op th 0.005% Gunjan 1 drop(s), INSERT 1 drop IN BOTH EYES AT BEDTIME Start Date: 07/20/23 Status: Ordered losartan potassium 100 mg oral tablet (20 sources) Angiotensin 2 Receptor Feng Start: 11-26-2019 take 1 tablet by mouth once daily losartan 100 mg Tab See Instructions, TAKE 1 TABLET BY MOUTH DAILY, # 90 tab(s), Refills(s) 3, Pharmacy: [facility], 158, cm, 06/29/23 10:10:00 EDT, Height/Length Dosing, 79.5, kg, 06/29/23 10:10:00 EDT, Weight Dosing Start Date: 07/14/23 Status: Ordered Losartan Potassi um 50 MG Orally qhs Active lutein 20 mg / zeaxanthin 1 mg oral capsule (14 sources) Start: 09-28-2023 take 1 capsule by mouth once daily Lutein-Zeaxanthin Active 1 CAP PO daily September 28, 2023 12:00am Lutein-Zeaxanthi n 25-5 MG as directed Orally ONCE A DAY Active Lutein-Zeaxanthi n 25-5 MG as directed Orally ONCE A DAY Active Lutein-Zeaxanthi n Active meclizine hydrochloride 12.5 mg oral tablet (20 sources) Antiemetic Start: 11-28-2019 End: 09-28-2023 take 1 tablet by mouth three times daily as needed for dizziness meclizine 12.5 mg Tab 12.5 mg = 1 tab(s), Oral, TID, as needed for dizziness, Refills(s) 0 Start Date: 05/25/22 Status: Ordered Meclizine HCl Ac tive Multivitamin preparation (6 sources) Start: 09-28-2023 take 1 tablet by mouth once daily Multivitamin Active 1 TAB PO Daily September 28, 2023 12:00am take 1 tablet by mouth once magi y Multivitamin - 1 tablet Orally Once a day Active Multivitamin Act tra nitroglycerin 0.4 mg sublingual tablet (20 sources) Nitrate Vasodilator Start: 03-30-2023 NitroStat 0.4 mg Tab See Instructions, use as needed for chest pain, # 25 tab(s), Refills(s) 0, Pharmacy: [id number], 158, cm, 03/30/23 10:02:00 EST, Height/Length Dosing, 82.6, kg, 03/30/23 10:02:00 EST, Weight Dosing Start Date: 03/30/23 Status: Ordered Start: 05-25-2022 NitroStat 0.4 mg Tab See Instructions, use as needed for chest pain, Refills(s) 0 Start Date: 05/25/22 Status: Ordered Start: 11-28-2019 Nitroglycerin Active 0.4 MG SUBLINGUAL Q5M November 28, 2019 12:00am do not exceed 3 doses per episode Nitroglycerin Ac tive Pen [place] (20 sources) Start: 08-11-2023 Pen [place] Pe n [place], See Instructions, 3 EA, 3, To be used with admin. of insulin QID. Dx: E11. 1ea equals 1box, [facility], Supply, 158, cm, 07/20/23 13:42:00 EDT, Height/Length Dosing, 79.3, kg, 07/20/23 13:55:00 EDT, Weight Dosing Start Date: 08/11/23 Status: Ordered Start: 02-22-2023 Pen [place] Pe n [place], See Instructions, 12 EA, 1, To be used with admin. of insulin QID. Dx: E11. 1 EA equals 1box, [facility], [facility], 158, cm, 12/21/22 13:46:00 EST, Height/Length Dosing, 81.6, kg, 12/21/22 13:46:00 EST, Weight Dosing Start Date: 02/22/23 Status: Ordered Start: 02-22-2023 Pen [place] Pe n [place], See Instructions, 1 EA, 1, To be used with admin. of insulin QID. Dx: E11. 1ea equals 1box, [facility], Supply, 158, cm, 12/21/22 13:46:00 EST, Height/Length Dosing, 81.6, kg, 12/21/22 13:46:00 EST, Weight Dosing Start Date: 02/22/23 Status: Ordered Start: 01-05-2023 Pen [place] Pe n [place], See Instructions, 300 EA, 1, To be used with admin. of insulin QID. Dx: E11., [facility], [facility], 158, cm, 12/21/22 [...] (20 sources) Dipeptidyl Peptidase 4 Inhibitor Start: 10-19-2023 take 1 tablet by mouth once daily Januvia 100 mg Tab See Instructions, TAKE 1 TABLET BY MOUTH DAILY, # 90 tab(s), Refills(s) 3, Pharmacy: [facility], 158, cm, 09/27/23 13:00:00 EDT, Height/Length Dosing, 77.8, kg, 09/27/23 13:00:00 EDT, Weight Dosing Start Date: 10/19/23 Status: Ordered Start: 11-26-2019 End: 09-28-2023 take 1 tablet by mouth once daily Januvia 100 mg Tab See Instructions, TAKE 1 TABLET BY MOUTH DAILY, # 90 tab(s), Refills(s) 3, Pharmacy: [facility], 157.5, cm, 10/05/22 16:38:00 EDT, Height/Length Dosing, 82.4, kg, 10/05/22 16:38:00 EDT, Weight Dosing Start Date: 12/17/22 Status: Ordered Januvia Active traZODone 25 mg oral capsule (17 sources) Serotonin Reuptake Inhibitor Start: 09-28-2023 take 25 mg by mouth once daily at bedtime Trazodone Active 25 MG PO Daily at bedtime September 28, 2023 12:00am Start: 09-07-2023 take 0.5 tablet by m outh once daily at bedtime traZODONE 50 mg [...] bedtime), # 15 tab(s), Refills(s) 0, Pharmacy: [facility] #[id number], 158, cm, 03/30/23 10:02:00 EST, Height/Length Dosing, 82.6, kg, 03/30/23 10:02:00 EST, Weight Dosing Start Date: 06/07/23 Status: Ordered Start: 03-30-2023 traZODONE 50 m g Tab 25 mg = 0.5 tab(s), Oral, Once a day (at bedtime), # 15 tab(s), Refills(s) 0, Pharmacy: [id number], 158, cm, 03/30/23 10:02:00 EST, Height/Length [...] (Original) amitriptyline hydrochloride 25 mg oral tablet (6 sources) Tricyclic Antidepressant Start: 11-26-2019 End: 09-28-2023 take 50 mg by mouth once daily at bedtime Amitriptyline Discontinued 50 MG PO Daily at bedtime November 26, 2019 12:00am September 28, 2023 10:35am take 1 tablet by mouth at bedtim e Amitriptyline HCl - 25 MG Oral Tablet TAKE 1 TABLET AT BEDTIME. Quantity: 0 Refills: 0 Ordered: 22-Jul-2021 DO Active Amitriptyline HC l 50 MG 2 Orally qhs Active atorvastatin 20 mg oral tablet (1 source) HMG-CoA Reductase Inhibitor Start: 11-26-2019 End: 09-28-2023 take 20 mg by mouth once daily at bedtime Atorvastatin Discontinued 20 MG PO Daily at bedtime November 26, 2019 12:00am September 28, 2023 10:36am Calcium (9 sources) Phosphate Binder, Calcium Calcium 600 TABS TAKE 1 TABLET DAILY. Quantity: 0 Refills: 0 Ordered: 05-Dec-2021 DO Active Calcium Active canagliflozin 100 mg oral tablet (2 sources) Sodium-Glucose Cotransporter 2 Inhibitor Start: 11-26-2019 End: 09-28-2023 take 1 tablet by mouth once daily in the morning Canagliflozin (Invokana) 100 mg tablet Discontinued 100 MG PO Every morning November 26, 2019 12:00am September 28, 2023 10:36am Invokana Active Ketorolac (8 sources) Nonsteroidal Anti-inflammatory Drug, Cyclooxygenase Inhibitor Start: 04-20-2019 Toradol p er 15 mg Apr, 15 mg Start: 01-09-2018 Toradol per 15 mg Jan, 30 mg F-Qpqzvsoacdrn-W7-B12 3-35-2 MG Oral Tablet (8 sources) take 1 tablet by mouth once daily S-Qyilmdzynmey-V3-B12 3-35-2 MG Oral Tablet Take 1 tablet daily Quantity: 0 Refills: 0 Ordered: 22-Jul-2021 DO Active F-Xzomqaooiosp-T8-B12 3-35-2 MG TABS (4 sources) G-Vhdfhmllarag-V 6-B12 3-35-2 MG TABS Take 1 tablet daily Quantity: 0 Refills: 0 Ordered: 22-Jul-2021 DO Active Mecobal-Levomefolat Ca-B6 Ph os (U-Dxvokz-P7-B12) 3-35-2 mg tablet (1 source) Start: 0 End: 4 take 1 tablet by mouth once daily in the morning Mecobal-Levomefolat Ca-B6 Phos (M-Itaxkk-T6-B12) 3-35-2 mg tablet Discontinued 1 TAB PO Every morning November 26, 2019 12:00am September 28, 2023 10:36am melatonin 10 mg oral capsule (12 sources) [...] succinate 50 mg extended release oral tablet (7 sources) beta-Adrenergic Feng Start: 08-27-2021 Metopr olol Succinate ER 50 MG Oral Tablet Extended Release 24 Hour take 1/2 tablet daily for 2 weeks, then take 1/2 tablet every other day for 2 weeks, then discontiune. Quantity: 90 Refills: 0 Ordered: 27-Aug-2021 Zak Nguyen MD Start : 27-Aug-2021 Active Start: 11-28-2019 End: 09-28-2023 take 1 tablet by mouth once daily Metoprolol Succinate ER 50 MG Oral Tablet Extended Release 24 Hour Take 1 tablet daily Quantity: 90 Refills: 3 Ordered: 04-Feb-2021 Gary Hilliard Start : 04-Feb-2021 Active Start: 11-26-2019 End: 11-28-2019 take 25 mg by mouth once daily in the morning Metoprolol Succinate Discontinued 25 MG PO Every morning November 26, 2019 12:00am November 28, 2019 3:42pm Metoprolol Succi sadie Active Multi Vitamin TABS (8 sources) Multi Vitamin TA BS TAKE 1 TABLET DAILY. Quantity: 0 Refills: 0 Ordered: 05-Dec-2021 DO Active ticagrelor 90 mg oral tablet (2 sources) Start: 11-28-2019 End: 09-28-2023 take 1 tablet by mouth twice daily Ticagrelor (Brilinta) 90 mg Tablet Discontinued 90 MG PO Twice daily 180 90 November 28, 2019 12:00am September 28, 2023 10:36am Brilinta Active Triamcinolone (8 sources) Corticosteroid Start: 04-20-2019 KENALOG - 10 m g Apr, 40 mg Start: 12-05-2018 KENALOG - 10 m g Nov, 40 mg Problems Active Problems Problem Classification Problem Date Documented Date Episodic/Chronic Adjustment disorders (20 sources) Adjustment disorder; Translations: [Prolonged grief disorder] 12-28-2022 Chronic Anxiety disorders (20 sources) Complex posttraumatic stress disorder; Translations: [Posttraumatic stress disorder] Onset: 09-15-2023 01-04-2023 Chronic Attention-deficit, conduct, and disruptive behavior disorders (3 sources) Compulsive behavior 11-29-2023 Episodic Cardiac dysrhythmias (20 sources) Ventricular premature beats; Translations: [Other premature [...] policy. Conditions associated with dizziness or vertigo (14 sources) Vertigo; Translations: [Dizziness and giddiness] Onset: 02-22-2023 02-22-2023 Episodic Coronary atherosclerosis and other heart disease (20 sources) Coronary arteriosclerosis; Translations: [Coronary atherosclerosis of unspecified type of vessel, [place] or graft] Onset: 02-22-2023 04-29-2023 Chronic Comment [...] unspecified hyperlipidemia] Onset: 01-07-2022 Chronic Esophageal disorders (20 sources) Gastroesophageal reflux disease 05-25-2022 Chronic Essential hypertension (20 sources) Benign essential hypertension; Translations: [Benign essential hypertension] Onset: 02-22-2023 Chronic Comment on above: noted in 04/29/2023 Cardiology Consult Note page 3. added per OP [facility] policy. Hypertension with complications and secondary hypertension (3 sources) Hypertensive chronic kidney disease with stage 1 through stage 4 chronic kidney disease, or unspecified chronic kidney disease; Translations: [Hypertensive renal disease] Onset: 05-31-2022 09-25-2023 Chronic Nonspecific chest pain (1 source) Chest pain; Translations: [Chest pain, unspecified] 11-26-2019 Episodic Other bone disease and musculoskeletal deformities (20 sources) Osteopenia 01-06-2023 Episodic Other diseases of kidney and ureters (1 source) Cyst of kidney, acquired; Translations: [CYST OF KIDNEY ACQUIRED] Onset: 05-31-2022 Episodic Other disorders of stomach and duodenum (18 sources) Gastroparesis syndrome 05-25-2022 Episodic Other lower respiratory disease (1 source) Dyspnea; Translations: [Shortness of breath] 11-26-2019 Episodic Other nutritional; endocrine; and metabolic disorders (14 sources) Obesity; Translations: [Obesity, unspecified] 09-25-2023 Chronic Other nutritional; endocrine; and metabolic disorders (12 sources) Body mass index 30+ - obesity; Translations: [Body mass index (BMI) 32.0-32.9, adult] Onset: 04-29-2023 04-29-2023 Chronic Other nutritional; endocrine; and metabolic disorders (2 sources) Body mass index (BMI) 32.0-32.9, adult; Translations: [Body mass index (BMI) 32.0-32.9, adult] Onset: 04-29-2023 Chronic Other nutritional; endocrine; and metabolic disorders (1 source) Hypercalcemia; Translations: [Hypercalcemia] 09-28-2023 Chronic Other nutritional; endocrine; and metabolic disorders (1 source) Hypercalcemia; Translations: [Hypercalcemia] 09-28-2023 Chronic Other nutritional; endocrine; and metabolic disorders (1 source) Obesity, unspecified; Translations: [Obesity, unspecified] 09-28-2023 Chronic Other screening for suspected conditions (not mental disorders or infectious disease) (5 sources) Encounter for screening mammogram for malignant neoplasm of breast; Translations: [Cardiovascular stress test abnormal] Onset: 12-01-2021 Episodic Residual codes; unclassified (1 source) Sleep apnea; Translations: [Sleep apnea, unspecified] 11-26-2019 Chronic Residual codes; unclassified (15 sources) Insomnia 03-30-2023 Episodic Unclassified (3 sources) CHRN KIDNEY DISEASE STG 3 UNSP; Translations: [CHRN KIDNEY DISEASE STG 3 UNSP] Onset: 08-08-2021 Unclassified (10 sources) Long-term current use of insulin 06-28-2023 [...] encounter [id number]] Onset: 11-18-2020 Resolved: 11-18-2020 Episodic Unclassified (12 sources) Never smoked tobacco; Translations: [Never smoker] Unclassified (1 source) CHRN KIDNEY DISEASE STG 3 UNSP; Translations: [CHRN KIDNEY DISEASE STG 3 UNSP] Onset: 08-06-2021 Unclassified (1 source) Onset: 04-29-2023 04-29-2023 Unclassified (1 source) Prolonged grief disorder; Translations: [Prolonged grief disorder] Onset: 09-15-2023 Results Test Name Value Interpretation Reference Range Facil ity CHEMISTRYOrdered By: Kendy Fontaine on 12-31-2023 HbA1c (Bld) [Mass fraction] 6.7 % High <=5.9% [facility] [place] [facility] Amb[place] Visit Summaryon 0 09-27-2023 Ambulatory Visit Summary Ambulatory Visit Summary OLIVA DAWSON :1950 Visit Date:09/27/2023 Ambulatory Visit Instructions Your Diagnosis Benign essential HTN DM type 2 causing CKD stage 3 Hypercholesterolemia Insomnia Adjustment disorder with disturbance of emotion GERD (gastroesophageal reflux disease) BMI 31.0-31.9,adult Class 1 obesity due to excess calories in adult Nonsmoker Chronic kidney disease, stage 3 unspecified Your Care Team Attending Physician - Dewayne Richey MD Primary Care Physician - Dewayne Richey MD This Is Your Medications List escitalopram (Lexapro 5 mg oral tablet) Contact prescribing physician if questions or concerns Misc Prescription (Freestyle Sam 2 Flash Glucose Monitoring 14 Day System (Sensor)) Misc Prescription (Pen [place]) Misc Prescription (Pen [place]) amlodipine aspirin (aspirin 81 mg Oral EC [...] (Temporal Artery) 36.8 ?C Heart Rate (Peripheral) 66 Respiratory Rate 16 Blood Pressure 122/68 Height 158 cm Height 62 in Weight 77.8 kg Weight 171.16 lb BMI 31.16 What to do next Scheduled Follow-Up Appointments Wednesday 10:00 AM EDT With: Denia Ding Where: [facility] Wednesday 10:00 AM EDT With: Denia Ding Where: [facility] 2023 1:00 PM EST With: Where: [address] [address]- Wednesday 10:00 AM EST With: Dewayne Richey MD Where: [address] [phone]- Medications What How Much When Why Instructions New escitalopram (Lexapro 5 mg oral tablet) 1 Tablets By Mouth Every day Pickup at [id number] Unchanged amlodipine 5 Milligram By Mouth Every day Contact prescribing physician if questions or concerns Unchanged aspirin (aspirin 81 mg Oral EC Tab) 1 Tablets By Mouth Every day Contact prescribing physician if questions or concerns Unchanged insulin glargine (Lantus Solostar Pen 100 units/ mL subcutaneous solution) 15 Units Subcutaneous Once a day (at bedtime) Contact prescribing physician if questions or concerns Unchanged insulin lispro (HumaLOG KwikPen 100 units/ mL injectable solution) See instructions AC & HS coverage 150-200 2U, 201-250 4U, 251-300 6U. 301-350 8U. 351-400 10U with carb coverage Contact prescribing physician if questions or concerns Unchanged latanoprost ophthalmic (latanoprost Opth 0.005% [place]) 1 Drops INSERT 1 drop IN BOTH EYES AT BEDTIME Contact prescribing physician if questions or concerns Unchanged losartan (losartan 100 mg Tab) See instructions TAKE 1 TABLET BY MOUTH DAILY Contact prescribing physician if questions or concerns Unchanged Misc Prescription (Freestyle Sam 2 Flash Glucose Monitoring 14 Day System (Sensor)) See instructions Osteopenia Long-term insulin use DM type 2 causing ESRD Freestyle Sam 2 Flash Glucose Monitoring 14 Day System (Sensor). Replace sensor every 14 days. Contact prescribing physician if questions or concerns Unchanged Misc Prescription ([place]) See instructions To be used with admin. of insulin QID. Dx: E11 1ea equals 1box Contact prescribing physician if questions or concerns Unchanged Misc Prescription ([place]) See instructions To be used with admin. of insulin QID. Dx: 1 EA equals 1box Contact prescribing physician if questions or concerns Unchanged nitroglycerin (NitroStat 0.4 mg Tab) See instructions use as needed for chest pain Contact prescribing physician if questions or concerns Unchanged rosuvastatin (rosuvastatin 20 mg Tab) 1 Tablets By Mouth Every day Contact prescribing physician if questions or concerns Unchanged sitagliptin (Januvia 100 mg Tab) See instructions TAKE 1 TABLET BY MOUTH DAILY Contact prescribing physician if questions or concerns Unchanged trazodone (traZODONE 50 mg Tab) See instructions TAKE ONE-HALF TABLET BY MOUTH ONCE DAILY AT BEDTIME Contact prescribing physician if questions or concerns Pharmacy Information [facility]: [address] [place], [place] [id number] [phone] Allergies No Known Medication Allergies Problems Ongoing - Any problem that you are currently receiving treatment for. Adjustmen (more content not included)... Normal [facility] CBC w/ Auto Diffon 4 Basophils/100 WBC (Bld) 0.9 % Normal 0.0-2.0 [facility] Comment on above: Performed By: #### 2 [id number] #### [facility] [address] [place] [address] Basophils/Leukocytes Auto (Bld) [Pure # fraction] 0.1 E9/L Normal 0.0-0.2 [facility] Comment on above: Performed By: #### 2 [id number] #### [facility] [address] [place] [address] Eosinophils (Bld) [#/Vol] 0.1 E9/L Normal 0.0-0.5 [facility] Comment on above: Performed By: #### 2 [id number] #### [facility] [address] [place] [address] Eosinophils/100 WBC (Bld) 1.2 % Normal 0.0-8.0 [facility] Comment on above: Performed By: #### 2 [id number] #### [facility] [address] [place] [address] Erythrocyte distribution width (RBC) [Ratio] 15.8 % High 10.9-14.2 [facility] Comment on above: Performed By: #### 2 [id number] #### [facility] [address] [place] [address] Hematocrit (Bld) [Volume fraction] 40.1 % Normal 34.0-46.0 [facility] Comment on above: Performed By: #### 2 [id number] #### [facility] [address] [place] [address] Hemoglobin (Bld) [Mass/Vol] 13.1 g/dL Normal 12.0-16.0 [facility] Comment on above: Performed By: #### 2 [id number] #### [facility] [address] [place] [address] Lymphocytes (Bld) [#/Vol] 1.9 E9/L Normal 1.0-4.0 [facility] Comment on above: Performed By: #### 2 [id number] #### [facility] [address] [place] [address] Lymphocytes/100 WBC (Bld) 24.3 % Normal 14.0-50.0 [facility] Comment on above: Performed By: #### 2 [id number] #### [facility] [address] [place] [address] MCH (RBC) [Entitic mass] 27.4 pg Normal 27.0-34.0 [facility] Comment on above: Performed By: #### 2 [id number] #### [facility] [address] [place] [address] MCHC (RBC) [Mass/Vol] 32.6 g/dL Normal 31.4-36.0 [facility] Comment on above: Performed By: #### 2 [id number] #### [facility] [address] [place] [address] MCV (RBC) [Entitic vol] 84.1 fL Normal 80.0-100.0 [facility] Comment on above: Performed By: #### 2 [id number] #### [facility] [address] [place] [address] Monocytes (Bld) [#/Vol] 0.6 E9/L Normal 0.2-1.0 [facility] Comment on above: Performed By: #### 2 [id number] #### [facility] [address] [place] [address] Neutrophils (Bld) [#/Vol] 5.2 E9/L Normal 2.0-7.5 [facility] Comment on above: Performed By: #### 2 [id number] #### [facility] [address] [place] [address] Neutrophils/100 WBC (Bld) 65.6 % Normal 36.0-75.0 [facility] Comment on above: Performed By: #### 2 [id number] #### [facility] [address] [place] [address] Platelet mean volume (Bld) [Entitic vol] 11.0 fL High 6.4-10.8 [facility] Comment on above: Performed By: #### 2 [id number] #### [facility] [address] [place] [address] Platelets (Bld) [#/Vol] 174.0 E9/L Normal 150.0-500.0 [facility] Comment on above: Performed By: #### 2 [id number] #### [facility] [address] [place] [address] RBC (Bld) [#/Vol] 4.8 E12/L Normal 4.3-5.9 [facility] Comment on above: Performed By: #### 2 [id number] #### [facility] [address] [place] [address] WBC corrected for nucl RBC Auto (Bld) [#/Vol] 8.0 E9/L Normal 4.0-11.0 [facility] Comment on above: Performed By: #### 2 [id number] #### [facility] [address] [place] [address] CHEMISTRYOrdered By: SYSTEM SYSTEM on 09-27-2023 Albumin [Mass/Vol] 4.1 g/dL Normal 3.3 - 5.0 gm/dL R emisol Chem Albumin/Globulin [Mass ratio] 1.4 {ratio} Normal 1.1 - 2.2 [facility] ALP [Catalytic activity/Vol] 56 [iU]/d Normal 21 - 98 Int._Unit/L [facility] ALT No additional P-5'-P [Catalytic activity/Vol] 20 [iU]/d Normal 6 - 46 Int._Unit/L [facility] Anion gap [Moles/Vol] 13 mmol/L Normal 6 - 16 mEq/L [facility] AST [Catalytic activity/Vol] 25 [iU]/d Normal 5 - 43 Int._Unit/L [facility] Bilirubin [Mass/Vol] 0.5 mg/dL Normal 0.0 - 1.1 mg/dL [facility] Calcium [Mass/Vol] 10.2 mg/dL Normal 8.9 - 11. 1 mg/dL [facility] Chloride [Moles/Vol] 101 mmol/L Normal 101 - 1 11 mmol/L [facility] Cholesterol [Mass/Vol] 140 mg/dL Normal 120 - 200 mg/dL [facility] Cholesterol in HDL [Mass/Vol] 55 mg/dL Invalid Interpretation Code [facility] Comment on above: Result Comment: '>= 60 LOW RISK' '<= 40 HIGH RISK' Cholesterol in LDL [Mass/Vol] 64 mg/dL Normal <=129mg/dL [facility] Cholesterol in VLDL [Mass/Vol] 16 mg/dL Normal 7 - 40 mg/dL [facility] CO2 [Moles/Vol] 26 mmol/L Normal 21 - 31 mmol/L Remis [facility] Chem Creatinine [Mass/Vol] 1.2 mg/dL Normal 0.5 - 1.3 mg/dL [facility] eGFR 47 mL/min/1.73 m2 Low >=59mL/min /1.73 m2 [facility] Globulin (S) [Mass/Vol] 2.9 g/dL Normal 1.4 - 4.0 gm/dL [facility] Glucose [Mass/Vol] 112 mg/dL Normal 55 - 199 mg/dL Re misol Chem Potassium [Moles/Vol] 4.6 mmol/L Normal 3.5 - 5.3 mmol/L [facility] Protein [Mass/Vol] 7.0 g/dL Normal 6.0 - 7.8 gm/dL R emisol Chem Sodium [Moles/Vol] 135 mmol/L Normal 135 - 145 mmol/L [facility] Triglyceride [Mass/Vol] 78 mg/dL Normal <=149mg/dL [facility] Urea nitrogen [Mass/Vol] 19 mg/dL Normal 5 - 21 mg/dL [facility] Urea nitrogen/Creatinine [Mass ratio] 16 mg/mg Normal 10 - 20 [facility] Albumin DL <= 20 mg/L (U) [Mass/Vol] 6.5 mg/dL High 0.0 - 1.9 mg/dL [facility] Protein/Creatinine (U) [Ratio] 16.30 mg/gm Cr Normal 0.00 - 200.00 mg/gm Cr [facility] U Creatinine 160.3 mg/dL Invalid Interpretation Code [facility] Ur Total Protein 26.1 mg/dL Invalid Interpretation Code [facility] CHEMISTRYOrdered By: Lazaro yusuf on 09-27-2023 HbA1c (Bld) [Mass fraction] 6.0 % High <=5.9% [facility] ChemAutoSS CMPon 09-27-2023 Albumin [Mass/Vol] 4.1 g/dL Normal 3.3-5.0 [facility] Comment on above: Performed By: #### 2 [id number] #### [facility] [address] [place] [address] Albumin/Globulin (S) [Mass conc ratio] 1.4 Normal 1.1-2.2 [facility] Comment on above: Performed By: #### 2 [id number] #### [facility] [address] [place] [address] ALP [Catalytic activity/Vol] 56 Int._Unit/L Normal 21-98 [facility] Comment on above: Performed By: #### 2 [id number] #### [facility] [address] [place] [address] ALT No additional P-5'-P [Catalytic activity/Vol] 20 Int._Unit/L Normal 6-46 [facility] Comment on above: Performed By: #### 2 [id number] #### [facility] [address] [place] [address] Anion gap [Moles/Vol] 13 mmol/L Normal 6-16 [facility] Comment on above: Performed By: #### 2 [id number] #### [facility] [address] [place] [address] AST [Catalytic activity/Vol] 25 Int._Unit/L Normal 5-43 [facility] Comment on above: Performed By: #### 2 [id number] #### [facility] [address] [place] [address] Bilirubin [Mass/Vol] 0.5 mg/dL Normal 0.0-1.1 [facility] Comment on above: Performed By: #### 2 [id number] #### [facility] [address] [place] [address] Calcium [Mass/Vol] 10.2 mg/dL Normal 8.9-11.1 [facility] Comment on above: Performed By: #### 2 [id number] #### [facility] [address] [place] [address] Chloride [Moles/Vol] 101 mmol/L Normal 101-111 [facility] Comment on above: Performed By: #### 2 [id number] #### [facility] [address] [place] [address] CO2 [Moles/Vol] 26 mmol/L Normal 21-31 [facility] Comment on above: Performed By: #### 2 [id number] #### [facility] [address] [place] [address] Creatinine [Mass/Vol] 1.2 mg/dL Normal 0.5-1.3 [facility] Comment on above: Performed By: #### 2 [id number] #### [facility] [address] [place] [address] Globulin (S) [Mass/Vol] 2.9 g/dL Normal 1.4-4.0 [facility] Comment on above: Performed By: #### 2 [id number] #### [facility] [address] [place] [address] Glucose [Mass/Vol] 112 mg/dL Normal 55-199 [facility] Comment on above: Performed By: #### 2 [id number] #### [facility] [address] [place] [address] Potassium [Moles/Vol] 4.6 mmol/L Normal 3.5-5.3 [facility] Comment on above: Performed By: #### 2 [id number] #### [facility] [address] [place] [address] Protein [Mass/Vol] 7.0 g/dL Normal 6.0-7.8 [facility] Comment on above: Performed By: #### 2 548656 #### [facility] [address] [place] [address] Sodium [Moles/Vol] 135 mmol/L Normal 135-145 [facility] Comment on above: Performed By: #### 2 [id number] #### [facility] [address] [place] [address] Urea nitrogen [Mass/Vol] 19 mg/dL Normal 5-21 [facility] Comment on above: Performed By: #### 2 [id number] #### [facility] [address] [place] [address] Urea nitrogen/Creatinine [Mass ratio] 16 No Units Normal 10-20 [facility] Comment on above: Performed By: #### 2 [id number] #### [facility] [address] [place] [address] Family Medicine Office/Clini c Noteon 09-27-2023 Family Medicine Office/Clinic Note Family Medicine Office/Clinic Note HPI Staff Oliva is a 73 year old female presenting for 3 month follow up DM, CKD Do you have any of the following symptoms? Foot Exam: NONE Eye Exam: UTD Last A1C: Hgb A1C %: 6.4 % High (03/30/23 10:51:00) Hgb A1c POC: 6.3 % (06/29/23 11:16:00) Statin: rosuvastatin 20mg QUESITONS/CONCERNS: NONE History of Present Illness - Here for follow up - See staff HPI. Review of Systems PHQ Score Initial Depression Screen Score: 2 SCORE Physical Exam Vitals & Measurements T: 36.8 ?C(Temporal Artery) HR: 66(Peripheral) RR: 16 BP: 122/68 SpO2: 98% HT: 62 in HT: 158 cm WT: 77.8 kg WT: 171.16 lb BMI: 31.16 General: alert, no acute distress ENMT: oral mucosa moist, Cardiovascular: regular rate and rhythm, normal peripheral perfusion Respiratory: Lungs CTA, respirations non labored Extremities: no deformity, no trauma Neurological: oriented x 4, LOC appropriate for age, CN II-XII intact, motor strength equal & normal bilaterally, speech normal Abdomen: Soft, Nontender, Non-distended, + BS Assessment/Plan 1. Benign essential HTN (I10: Essential (primary) hypertension) - At goal. - Meds doing well. - No issues. Ordered: Body Mass Index (BMI) documented 3008F CBC w/ Auto Diff Comprehensive Metabolic Panel Current tobacco non-user 1036F Depression Screening Negative 3352F HgbA1c Influenza immunization administered or previously received 4274F Lipid Panel Microalbumin Level Urine Most recent diastolic blood pressure <80 mm Hg 3078F Patient screen for fall risk: no falls in last year or 1 fall with no injury in last year 1101F Systolic BP <130 mm Hg (Most Recent) 3074F U Protein/Creat Ratio 2. 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 - BS have been well controlled. - Follow up in 6 months Ordered: Body Mass Index (BMI) documented 3008F CBC w/ Auto Diff Comprehensive Metabolic Panel Current tobacco non-user 1036F Depression Screening Negative 3352F HgbA1c Influenza immunization administered or previously received 4274F Lipid Panel Microalbumin Level Urine Most recent diastolic blood pressure <80 mm Hg 3078F Patient screen for fall risk: no falls in last year or 1 fall with no injury in last year 1101F Systolic BP <130 mm Hg (Most Recent) 3074F U Protein/Creat Ratio 3. Hypercholesterolemia (E78.00: Pure hypercholesterolemia, unspecified) - Continue diet and exercise - Meds doing well. - Follow up in 6 months Ordered: Body Mass Index (BMI) documented 3008F CBC w/ Auto Diff Comprehensive Metabolic Panel Current tobacco non-user 1036F Depression Screening Negative 3352F HgbA1c Influenza immunization administered or previously received 4274F Lipid Panel Microalbumin Level Urine Most recent diastolic blood pressure <80 mm Hg 3078F Patient screen for fall risk: no falls in last year or 1 fall with no injury in last year 1101F Systolic BP <130 mm Hg (Most Recent) 3074F U Protein/Creat Ratio 4. Insomnia (G47.00: Insomnia, unspecified) - Controlled on Trazodone - Refill meds as needed - NO side affects Ordered: Body Mass Index (BMI) documented 3008F CBC w/ Auto Diff Comprehensive Metabolic Panel Current tobacco non-user 1036F Depression Screening Negative 3352F HgbA1c Influenza immunization administered or previously received 4274F Lipid Panel Microalbumin Level Urine Most recent diastolic blood pressure <80 mm Hg 3078F Patient screen for fall risk: no falls in last year or 1 fall with no injury in last year 1101F Systolic BP <130 mm Hg (Most Recent) 3074F U Protein/Creat Ratio 5. Adjustment disorder with disturbance of emotion (F43.29: Adjustment disorder with other symptoms) - Doing ok. - Seeing counseling - Will try lexapro at this time. - If no improvement, follow up in 1 month. Ordered: Body Mass Index (BMI) documented 3008F CBC w/ Auto Diff Comprehensive Metabolic Panel Current tobacco non-user 1036F Depression Screening Negative 3352F HgbA1c Influenza immunization administered or previously received 4274F Lipid Panel Microalbumin Level Urine Most recent diastolic blood pressure <80 mm Hg 3078F Patient screen for fall risk: no falls in last year or 1 fall with no injury in last year 1101F Systolic BP <130 mm Hg (Most Recent) 3074F U Protein/Creat Ratio 6. GERD (gastroesophageal reflux disease) (K21.9: Gastro-esophageal reflux disease without esophagitis) - Well controlled off meds Ordered: Body Mass Index (BMI) documented 3008F CBC w/ Auto Diff Comprehensive Metabolic Panel Current tobacco non-user 1036F Depression Screening Negative 3352F HgbA1c Influenza immunization administered or previously received 4274F Lipid Panel Microalbumin Level Urine Most recent diastolic blood pressure <80 mm Hg 3078F Patient screen for fall risk: no falls in last (more content not included)... Normal [facility] Comment on above: Result Comment: Elec tronically Signed By: Mat JIMENEZ, Dewayne Zhao\.br\Date and Time Signed: 09/27/23 13:19 EDT HEMATOLOGYOrdered By: SYSTEM SYSTEM on 09-27-2023 Basophils/100 WBC (Bld) 0.9 % Normal 0.0 - 2.0 % [facility] Basophils/Leukocytes Auto (Bld) [Pure # fraction] 0.1 E9/L Normal 0.0 - 0.2 E9/L [facility] Eosinophils (Bld) [#/Vol] 0.1 E9/L Normal 0.0 - 0.5 E9/L [facility] Eosinophils/100 WBC (Bld) 1.2 % Normal 0.0 - 8.0 % [facility] Erythrocyte distribution width (RBC) [Ratio] 15.8 % High 10.9 - 14.2 % [facility] Hematocrit (Bld) [Volume fraction] 40.1 % Normal 34.0 - 46.0 % [facility] Hemoglobin (Bld) [Mass/Vol] 13.1 g/dL Normal 12.0 - 16.0 gm/dL [facility] Lymphocytes (Bld) [#/Vol] 1.9 E9/L Normal 1.0 - 4.0 E9/L [facility] Lymphocytes/100 WBC (Bld) 24.3 % Normal 14.0 - 50.0 % [facility] MCH (RBC) [Entitic mass] 27.4 pg Normal 27.0 - 34.0 pg [facility] MCHC (RBC) [Mass/Vol] 32.6 g/dL Normal 31.4 - 36.0 gm/dL [facility] MCV (RBC) [Entitic vol] 84.1 fL Normal 80.0 - 100.0 fL [facility] Monocytes (Bld) [#/Vol] 0.6 E9/L Normal 0.2 - 1.0 E9/L [facility] Monocytes/100 WBC (Bld) 8.0 % Normal 4.0 - 14.0 % [facility] Neutrophils (Bld) [#/Vol] 5.2 E9/L Normal 2.0 - 7.5 E9/L [facility] Neutrophils/100 WBC (Bld) 65.6 % Normal 36.0 - 75.0 % [facility] Platelet mean volume (Bld) [Entitic vol] 11.0 fL High 6.4 - 10.8 fL [facility] Platelets (Bld) [#/Vol] 174.0 E9/L Normal 150.0 - 500.0 E9/L [facility] RBC (Bld) [#/Vol] 4.8 E12/L Normal 4.3 - 5.9 E12/L Re misol Heme WBC corrected for nucl RBC Auto (Bld) [#/Vol] 8.0 E9/L Normal 4.0 - 11.0 E9/L [facility] [id number] 09-27-2023 HbA1c (Bld) [Mass fraction] 6.0 % High <=5.9 [facility] Comment on above: Performed By: #### 7 [id number] #### [facility] [address] [place] [address] Lipid Panelon 09-27-2023 Cholesterol [Mass/Vol] 140 mg/dL Normal 120-200 [facility] Comment on above: Performed By: #### 2 [id number] #### [facility] [address] [place] [address] Cholesterol in HDL [Mass/Vol] 55 mg/dL Invalid Interpretation Code [facility] Comment on above: Result Comment: '>= 60 LOW RISK' '<= 40 HIGH RISK' Performed By: #### 2 [id number] #### [facility] [address] [place] [address] Cholesterol in LDL [Mass/Vol] 64 mg/dL Normal <=129 [facility] Comment on above: Performed By: #### 2 [id number] #### [facility] [address] [place] [address] Cholesterol in VLDL [Mass/Vol] 16 mg/dL Normal 7-40 [facility] Comment on above: Performed By: #### 2 [id number] #### [facility] [address] [place] [address] Triglyceride [Mass/Vol] 78 mg/dL Normal <=149 [facility] Comment on above: Performed By: #### 2 [id number] #### [facility] [address] [place] [address] U Microalbon 09-27-2023 Albumin DL <= 20 mg/L (U) [Mass/Vol] 6.5 mg/dL High 0.0-1.9 [facility] Comment on above: Performed By: #### 1 [id number] #### [facility] [address] [place] [address] U Protein/Creat Ratioon 09-08 Protein/Creatinine (U) [Ratio] 16.30 mg/gm Cr Normal .00-200.00 [facility] Comment on above: Performed By: #### 1 [id number] #### [facility] [address] [place] [address] U Creatinine 160.3 mg/dL Invalid Interpretation Code [facility] Comment on above: Performed By: #### 1 [id number] #### [facility] [address] [place] [address] Ur Total Protein 26.1 mg/dL Invalid Interpretation Code [facility] Comment on above: Performed By: #### 1 [id number] #### [facility] [address] [place] [address] eGFRon 09-27-2023 eGFR 47 mL/min/1.73 m2 Low >=59 [facility] Comment on above: Order Comment: Order added by Discern Expert. Performed By: #### 1 [id number] #### [facility] [address] [place] [address] Erythrocyte distribution wid th Auto (RBC) [Ratio]on 09-22-2023 Erythrocyte distribution width (RBC) [Ratio] 15.5 % High 11.0-15.0 [facility] Estimated glomerular filtrat ion rate (GFR) non- Americanon 09-22-2023 GFR/1.73 sq M.predicted among non-blacks MDRD (S/P/Bld) [Vol rate/Area] 51 mL/min/{1.73_m2} Low >=60 [facility] Globulin Calc (S) [Mass/Vol] on 09-22-2023 Globulin (S) [Mass/Vol] 3.3 g/dL [facility] Hematocrit Auto (Bld) [Volum e fraction]on 09-22-2023 Hematocrit (Bld) [Volume fraction] 40.3 % 36.0-48.0 [facility] Hemoglobin [Mass/volume] in Bloodon 09-22-2023 Hemoglobin (Bld) [Mass/Vol] 12.9 g/dL 12.0-16.0 [facility] Laboratory - Chemistry and C hemistry - challengeon 09-22-2023 Albumin [Mass/Vol] 3.8 g/dL 3.4-5.0 [facility] ALP [Catalytic activity/Vol] 63 U/L 46-116 [facility] ALT [Catalytic activity/Vol] 23 U/L 14-59 [facility] AST [Catalytic activity/Vol] 16 U/L 15-37 [facility] Bilirubin [Mass/Vol] 0.6 mg/dL 0.2-1.0 [facility] Calcium [Mass/Vol] 10.3 mg/dL High 8.5-10.1 [facility] Chloride [Moles/Vol] 102 mmol/L 98-107 [facility] CO2 [Moles/Vol] 30.1 mmol/L 21.0-32.0 [facility] Creatinine [Mass/Vol] 1.05 mg/dL High 0.55-1.02 [facility] GFR/1.73 sq M.predicted MDRD (S/P/Bld) [Vol rate/Area] mL/min/{1.73_m2} >=60 [facility] Glucose [Mass/Vol] 60 mg/dL Low 74-106 [facility] Magnesium [Mass/Vol] 1.8 mg/dL 1.8-2.4 [facility] Potassium [Moles/Vol] 4.2 mmol/L 3.5-5.1 [facility] Protein [Mass/Vol] 7.1 g/dL 6.4-8.2 [facility] Sodium [Moles/Vol] 137 mmol/L 136-145 [facility] Urate [Mass/Vol] 3.2 mg/dL 2.6-6.0 [facility] Urea nitrogen [Mass/Vol] 21.0 mg/dL High 7.0-18.0 [facility] Urea nitrogen/Creatinine [Mass ratio] 20.0 mg/mg [facility] Laboratory - Urinalysison Protein (U) [Mass/Vol] 12.7 mg/dL High <=11.9 [facility] Leukocytes [#/volume] correc jeff for nucleated erythrocytes in Blood by Automated counon 09-22-2023 WBC corrected for nucl RBC Auto (Bld) [#/Vol] 8.5 10 3/uL 4.0-11.0 [facility] MCH Auto (RBC) [Entitic mass ]on 09-22-2023 MCH (RBC) [Entitic mass] 27.0 pg 26.7-34.0 [facility] MCHC Auto (RBC) [Mass/Vol]on 09-22-2023 MCHC (RBC) [Mass/Vol] 32.0 g/dL 29.9-35.2 [facility] MCV Auto (RBC) [Entitic vol] on 09-22-2023 MCV (RBC) [Entitic vol] 84.3 fL 81.0-99.0 [facility] No Panel Informationon 09-21 25-Hydroxy Vitamin D Total 56.6 ng/mL [facility] Comment on above: <20 ng/mL Vit D defi cient20-<30 ng/mL Vit D ozbvdmayegch21-582 ng/mL Vit D sufficient>100 ng/mL Potential Toxicity Parathyroid Hormone (Intact) 19 pg/mL 15-65 [facility] Comment on above: Performed at: - [address] [id number] Director: Eduardo Francis PhD, Phone: [phone] Phosphorus Level 3.5 mg/dL 2.6-4.7 [facility] Urine Random Creatinine 86.39 mg/dL 20.00-300.00 [facility] Platelet mean volume Auto (B ld) [Entitic vol]on 09-22-2023 Platelet mean volume (Bld) [Entitic vol] 12.0 fL 9.5-13.5 [facility] Platelets Auto (Bld) [#/Vol] on 09-22-2023 Platelets (Bld) [#/Vol] 174 10 3/uL 150-450 [facility] RBC Auto (Bld) [#/Vol]on RBC (Bld) [#/Vol] 4.78 10 6/uL 4.20-5.40 [facility] Serum or plasma albumin/glob ulin mass ratioon 09-22-2023 Albumin/Globulin [Mass ratio] 1.2 {ratio} [facility] Serum or plasma anion gap de terminationon 09-22-2023 Anion gap [Moles/Vol] 9.1 mmol/L [facility] Urine protein/creatinine rat ioon 09-22-2023 Protein/Creatinine (U) [Ratio] 0.15 [facility] Ambulatory Visit Summaryon 0 07-20-2023 Ambulatory Visit Summary OLIVA DAWSON :1950 Visit Date:07/20/2023 Ambulatory Visit Instructions Your Diagnosis BMI 31.0-31.9,adult Your Care Team Attending Physician - DOMINIC ORTEGA CNP Primary Care Physician - Dewayne Richey MD This Is Your Medications List Misc Prescription (Freestyle Sam 2 Flash Glucose Monitoring 14 Day System (Sensor)) Misc Prescription ([place]) Mis Prescription ([place]) amlodipine aspirin (aspirin 81 mg Oral EC [...] Follow-Up Appointments Wednesday 10:00 AM EDT With: Mat JIMENEZ, Dewayne Zhao Where: [facility] Normal [address] [place], [place] [id number]- \.br\ Medications\.br \ What How Much When [...] 1 TABLET BY MOUTH DAILY \.br\ Unchanged [facility] [place] [place] Prescription (Freestyle Sam 2 Flash Glucose Monitoring 14 Day System (Sensor)) See instructions Osteopenia Long-term insulin use DM type 2 causing ESRD Freestyle Sam 2 Flash Glucose Monitoring 14 Day System (Sensor). Replace sensor every 14 days. \.br\ Unchanged Misc Prescription ([place]) See instructions To be used with admin. of insulin QID. Dx: 1ea equals 1box \.br\ Unchanged Misc Prescription ([place]) See instructions To be used with admin. of insulin QID. Dx: 1 EA equals 1box \.br\ Unchanged nitroglycerin [...] posttraumatic stress disorder\.br\ Coronary artery disease involving [place] coronary artery without angina pectoris\.br\ Diabetic gastroparesis [...] for choosing us for your care.\.br\ \.br\ [facility] Medicine Office/Clini c Noteon 07-20-2023 Family Medicine Office/Clinic Note HPI Staff Oliva Villalobosnorman 73 presents today for acute visit for [...] available Patient Education Upper Respiratory Infection, Adult, Mvil-gb-Xagj Problem List/Past Medical History Ongoing Adjustment disorder with disturbance of emotion Benign essential HTN Benign hypertension with chronic kidney disease, stage III BMI 31.0-31.9,adult Chronic kidney disease (CKD), stage III (moderate) 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 Normal [facility] Comment on above: Result Comment: Elec tronically Signed By: DOMINIC ORTEGA CNP\.br\Date and Time Signed: 07/20/23 15:16 EDT Patient Educationon 07-20-19 24 Patient Education Infectious Disease Upper Respiratory Infection, [...] to help relieve symptoms, such as: ? Jqjg-mku-vilxmqv cold medicines. ? Medicines to reduce coughing [...] other clear broths. General instructions ? Take segf-htj-dfaopfc and prescription medicines only as told by [...] cannot use soap and water, use hand behavioral analyst. ? Avoid touching your mouth, face, eyes, [...] get better within 7?10 days. ? Take zznb-hly-xkxbjnd and prescription medicines only as told by your doctor. This information is not intended to replace advice given to you by your health care (more content not included)... Normal [facility] Ambulatory Visit Summaryon 0 06-29-2023 Ambulatory Visit Summary OLIVA DAWSON :1950 Visit Date:06/29/2023 Ambulatory Visit Instructions Your Diagnosis Type 2 diabetes mellitus with stage 3 chronic kidney disease, DM type 2 causing CKD stage 3 Benign hypertension with chronic kidney disease, stage III Diabetic gastroparesis associated with type 2 diabetes mellitus Long-term insulin use Benign essential HTN Coronary artery disease involving [place] coronary artery without angina pectoris PVC's (premature [...] physician if questions or concerns Misc Prescription ([place] Sam 2 Flash Glucose Monitoring 14 Day System (Sensor)) Misc Prescription ([place]) Misc Prescription ([place]) amlodipine aspirin (aspirin 81 mg Oral EC [...] 1:00 PM EDT With: Denia Ding Where: [facility] Wednesday 10:00 AM EDT With: Dewayne Richey MD Where: [facility] Mariaelena Normal [address] [id number]- \.br\ Medications\.br \ What How Much When [...] or concerns \.br\ Unchanged Misc Prescription ([place]) See instructions To be used with admin. of insulin QID. Dx: 1ea equals 1box Contact prescribing physician if questions or concerns \.br\ Unchanged Misc Prescription ([place]) See instructions To be used with admin. 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 Long-term insulin use (Z79.4: intermediate accountant (current) use of insulin) - Diet and [...] Recent) 3074F 6. Coronary artery disease involving [place] coronary artery without angina pectoris (I25.10: Atherosclerotic heart disease of [place] coronary artery without angina pectoris) - No [...] 3008F Current (more content not included)... Normal [facility] Comment on above: Result Comment: Elec tronically Signed By: Dewayne Richey MD\.br\Date and Time Signed: 06/29/23 10:38 EDT Consultation Noteon 05-04-19 Consultation Note [id number]#[id number] 0TIFF Normal [facility] Ambulatory Visit Summaryon 0 03-30-2023 Ambulatory Visit Summary OLIVA DAWSON :1950 Visit Date:03/30/2023 Ambulatory Visit Instructions Your [...] if questions or concerns Misc Prescription ([place]) Misc Prescription ([place]) amlodipine aspirin (aspirin 81 mg Oral EC [...] 11:00 AM EST With: Denia Ding Where: [facility] Wednesday 10:00 AM EDT With: Mat JIMENEZ, Dewayne Zhao Where: [facility] Invalid Interpretation Code [address] [place] [address] \.br\ You Need to Complete the Following\.br\ HgbA1c, Blood, Routine collect, 03/30/23, Order for future visit, Lab Collect, DM type 2 causing CKD stage 3 [facility] CHEMISTRYOrdered By: Bertha Chávez on 03-30-2023 HbA1c (Bld) [Mass fraction] 6.4 % High <=5.9% [facility] ChemAuto[facility] Family Medicine Office/Clini c Noteon 03-30-2023 [...] bedtime), # 15 tab(s), Refills(s) 0, Pharmacy: [facility] #[id number], 158, cm, 03/30/23 10:02:00 EST, Height/Length Dosing, [...] bedtime), # 15 tab(s), Refills(s) 0, Pharmacy: [facility] #[id number], 158, cm, 03/30/23 10:02:00 EST, Height/Length Dosing, [...] bedtime), # 15 tab(s), Refills(s) 0, Pharmacy: [facility] #[id number], 158, cm, 03/30/23 10:02:00 EST, Height/Length Dosing, [...] bedtime), # 15 tab(s), Refills(s) 0, Pharmacy: [facility] #[id number], 158, cm, 03/30/23 10:02:00 EST, Height/Length Dosing, [...] 15 tab(s), Refills(s) 0, Pharmacy: [facility] #[id number], 158, cm, 03/30/23 10:02:00 EST, Height/Length Dosing, 82.6, kg, 03/30/23 10:02:00 EST, Weight Dosing HgbA1c 6. Insomnia (G47.00: Insomnia, unspecified) - Will try trazodone. Ordered: trazodone, 25 mg = 0.5 tab(s), Oral, Once a day (at bedtime), # 15 tab(s), Refills(s) 0, Pharmacy: [facility] #[id number], 158, cm, 03/30/23 10:02:00 EST, Height/Length Dosing, 82.6, kg, 03/30/23 10:02:00 EST, Weight Dosing Chronic kidney disease, stage 3 unspecified (N18.30: Chronic kidney disease, stage 3 unspecified) Orders: multivitamin, 1 tab(s), Oral, Daily, 90 tab(s), Refill(s) 0, [facility] #0 (more content not included)... Normal [facility] Comment on above: Result Comment: Elec tronically Signed By: Mat JIMENEZ, Dewayne Zhao\.br\Date and Time Signed: 03/30/23 10:35 EST [id number] 03-30-2023 HbA1c (Bld) [Mass fraction] 6.4 % High <=5.9 [facility] Comment on above: Performed By: #### 7 [id number] ####[facility] [address] [place] [address] Patient Educationon 03-30-19 24 Patient Education Nutrition BMI for Adults What [...] numbers. This can be done either in [place] ([place].S[place] or metric measurements. Note that charts and online BMI calculators are available to help you find your BMI quickly and easily without having to do these calculations yourself. To calculate your BMI in [place] ([place] measurements: 1. Measure your weight in [...] for Disease Control and Prevention: www.cdc.gov ? [place] [employer]: www.heart.org ? National Heart, Lung, and Blood [place]: www.nhlbi.nih.gov Summary ? Body mass index (BMI) is a number that is calculated from a person's weight and height. ? BMI may help estimate how much of a person's weight is composed of fat. BMI can help identify those who may be at higher risk for certain medical problems. ? BMI can be measured using Czech measurements or metric measurements. ? BMI charts are used to identify whether you are underweight, normal weight, overweight, or obese. This information is not intended to replace advice given to you by your health care provider. Make sure you discuss any questions you have with your health care provider. Document Revised: 10/18/2019 Document Reviewed: 08/25/2019 [employer] Patient Education ? 2022 [employer] [facility] Dexa Scanson 01-06-2023 Dexa Scans [id number] TIFF [facility] Outside Mammographyon 2022 Outside Mammography [id number] 0TIFF [facility] RAD - MISCon 01-06-2023 RAD - MISC [id number]#1.0 0TIFF [facility] Interdisciplinary Note - Soc ial Workeron 01-04-2023 Interdisciplinary Note - Falafel Cart Cook This SW made a tc to patient today to follow up on her positive depression screen. Patient states things are going well and she has gotten connected with BRAIN [facility] through [facility]. She has been following with Denia for 2 weeks. SW will remain available. Normal [facility] GLYCOHEMOGLOBIN A1Con 2022 ADA RECOMMENDATION SEE BELOW Normal [facility] Comment on above: Result Comment: ADA RECOMMENDED LIMIT 4.0 - 6.0 ADA THERAPEUTIC TARGET < 7.0 ACTION SUGGESTED > 7.0 Performed By: #### A 1C #### [facility] [address] [place], [place] [address] Dr. Adarsh Skinner Glucose [Mass/Vol] 146 mg/dL Normal [facility] Comment on above: Performed By: #### A 1C #### [facility] [address] [place], [place] [address] Dr. Adarsh Skinner HbA1c (Bld) [Mass fraction] 6.7 % Critically high 4.5-6.2 [facility] Comment on above: Performed By: #### A 1C #### [facility] [address] [place], [place] [address] Dr. Adarsh Skinner Office Visit (Cardiology)on 06-19-2022 [...] Lantus 100 UNIT/ML Subcutaneous SolutionINJECT SUBCUTANEOUSLY DIRECTED. J-Uahkwtaacvkn-F0-B12 3-35-2 MG TABSTake 1 tablet daily Losartan [...] negative for complaint. Vitals Vital Signs Recorded: 55Flj0533 10:14AM Heart Rate66, R Radial Jigtefjk821, RUE, Sitting Ioflvxkfm45, RUE, Sitting Height5 ft 2 in (more content not included)... Normal [facility] Tobacco Screening.on 023 Adult depression screening assessment Yes [facility] Social [facility] DO Work Phone: [phone] Adult depression screening assessment No [facility] Social Plus DO Work Phone: [phone] Adult depression screening assessment Mild (5-9) [facility] Social Plus DO Work Phone: [phone] Fall risk assessment a) No falls within the last year [facility] Social Plus DO Work Phone: [phone] Tobacco use status [facility] b) No [facility] Heart-Norwal k 600 DO Work Phone: Tobacco Screening. 1-Several days [facility] Centers[facility] faria 600 DO Work Phone: Tobacco Screening. 3-Nearly every day [facility] Mahmood DO Work Phone: Tobacco Screening. 2-More than half the days [facility] Mahmood DO Work Phone: Tobacco Screening. 0-Not at all [facility] Centers[facility] Mahmood DO Work Phone: Tobacco Screening. Somewhat Difficult [facility] Mahmood DO Work Phone: GLYCOHEMOGLOBIN A1Con 2022 ADA RECOMMENDATION SEE BELOW Normal [facility] Comment on above: Result Comment: ADA RECOMMENDED LIMIT 4.0 - 6.0 ADA THERAPEUTIC TARGET < 7.0 ACTION SUGGESTED > 7.0 Performed By: #### A 1C #### [facility] [address] [address] [address] Adarsh Skinner Glucose [Mass/Vol] 148 mg/dL Normal [facility] Comment on above: Performed By: #### A 1C #### [facility] [address] [address] [address] Adarsh Skinner HbA1c (Bld) [Mass fraction] 6.8 % Critically high 4.5-6.2 [facility] Comment on above: Performed By: #### A 1C #### [facility] [address] [address] [address] Adarsh Skinner Cardiovasc Arrhythmia Result son 02-23-2022 Cardiovasc Arrhythmia Results Reason For Visit Reason for Visit: Holter Monitor: NETTA is here for the application of a 24 hour Holter monitor. Ordering Physician: Dr. Zak Nguyen MD Diagnosis: pvc [facility] equipment agreement signed. NETTA understands monitor is to be returned on: 02/24/22 Monitor number [id number] applied. Holter monitor returned and downloaded. Holter [...] Appointments Date/TimeProviderSpeci altySite 06/19/2022 10:10 Zak Moe [id number] DO Signatures Electronically signed by : Katrin MoranPSully; Feb 24 2022 11:03AM EST (Author) Electronically signed by : Zak Nguyen MD; Mar 05 2022 11:58AM EST (Author) Normal [facility] Office Visit (Cardiology)on 01-19-2022 Follow-up visit Diagnoses/Problems [...] in adult Healthy Weight Tips; Status:Complete; Done: 66Iek6599 Some eating tips that can help you lose weight.; Status:Complete; Done: 40Ufl5413 PVC's (premature ventricular contractions) IO Holter Monitor up to 48 Hrs; Status:Complete; Done: 99Afl0262 SocHx: Never smoker Tobacco Use Screening; Status:Complete; Done: 27Lsy0203 Patient Instructions Please bring all medicines, vitamins, [...] Lantus 100 UNIT/ML Subcutaneous SolutionINJECT SUBCUTANEOUSLY DIRECTED. Q-Zlsfofedbsdb-H6-B12 3-35-2 MG Oral TabletTake 1 tablet daily [...] have been (more content not included)... Normal [facility] Tobacco Screening.on 022 Fall risk assessment a) No falls within the last year [facility] 600 DO Work Phone: Tobacco use status [facility] b) No [facility] [employer]ius [address] DO Work Phone: CBC AUTO DIFFon 01-07-2022 BASO # 0.1 103/ul Normal 0.0-0.1 [facility] Comment on above: Performed By: #### C BC #### [facility] [address] [address] [address] Adarsh Skinner Basophils/100 WBC (Bld) 0.7 % Normal 0.2-2.0 [facility] Comment on above: Performed By: #### C BC #### [facility] [address] [place] [address] Dr. Adarsh Skinner EO # 0.2 103/ul Normal 0.0-0.7 [facility] Comment on above: Performed By: #### C BC #### [facility] [address] [place] [address] Dr. Adarsh Skinner Eosinophils/100 WBC (Bld) 2.0 % Normal 0.9-7.0 [facility] Comment on above: Performed By: #### C BC #### [facility] [address] [place] [address] Dr. Adarsh Skinner Erythrocyte distribution width (RBC) [Ratio] 15.9 % Critically high 11.0-15.0 [facility] Comment on above: Performed By: #### C BC #### [facility] [address] [place] [address] Dr. Adarsh Skinner Hematocrit (Bld) [Volume fraction] 41.7 % Normal 36.0-48.0 [facility] Comment on above: Performed By: #### C BC #### [facility] [address] [place] [address] Dr. Adrash Skinner Hemoglobin (Bld) [Mass/Vol] 13.2 g/dL Normal 12.0-16.0 [facility] Comment on above: Performed By: #### C BC #### [facility] [address] [place] [address] Dr. Adarsh Skinner IG # 0.03 10e3/ul Normal 0.00-0.03 [facility] Comment on above: Performed By: #### C BC #### [facility] [address] [place] [address] Dr. Adarsh Skinner IG % 0.3 % Normal 0.0-0.5 [facility] Comment on above: Performed By: #### C BC #### [facility] [address] [place] [address] Dr. Adarsh Skinner LYMPH # 1.9 103/ul Normal 1.2-3.8 [facility] Comment on above: Performed By: #### C BC #### [facility] [address] [place] [address] Dr. Adarsh Skinner Lymphocytes/100 WBC (Bld) 20.6 % Normal 20.5-60.0 [facility] Comment on above: Performed By: #### C BC #### [facility] [address] [place] [address] Dr. Adarsh Skinner MANUAL DIFF REQ NO Normal [facility] Comment on above: Performed By: #### C BC #### [facility] [address] [place] [address] Dr. Adarsh Skinner MCH (RBC) [Entitic mass] 26.8 pg Normal 26.7-34.0 [facility] Comment on above: Performed By: #### C BC #### [facility] [address] [place] [address] Dr. Adarsh Skinner MCHC (RBC) [Mass/Vol] 31.7 g/dL Normal 29.9-35.2 [facility] Comment on above: Performed By: #### C BC #### [facility] [address] [place] [address] Dr. Adarsh Skinner MCV (RBC) [Entitic vol] 84.8 fL Normal 81.0-99.0 [facility] Comment on above: Performed By: #### C BC #### [facility] [address] [place] [address] Dr. Adarsh Skinner MONO # 0.7 103/ul Normal 0.3-0.8 [facility] Comment on above: Performed By: #### C BC #### [facility] [address] [place] [address] Dr. Adrash Skinner Monocytes/100 WBC (Bld) 7.2 % Normal 1.7-12.0 [facility] Comment on above: Performed By: #### C BC #### [facility] [address] [place] [address] Dr. Adarsh Skinner NEUT # 6.4 103/ul Normal 1.4-6.5 [facility] Comment on above: Performed By: #### C BC #### [facility] [address] [address] [address] Adarsh Skinner Neutrophils/100 WBC (Bld) 69.2 % Normal 43.0-75.0 [facility] Comment on above: Performed By: #### C BC #### [facility] [address] [address] [address] Adarsh Skinner Platelet mean volume (Bld) [Entitic vol] 12.2 fL Normal 9.5-13.5 [facility] Comment on above: Performed By: #### C BC #### [facility] [address] [address] [address] Adarsh Skinner PLT 217 103/ul Normal 150-450 [facility] Comment on above: Performed By: #### C BC #### [facility] [address] [address] [address] Adarsh Skinner RBC 4.92 106/ul Normal 4.20-5.40 [facility] Comment on above: Performed By: #### C BC #### [facility] [address] [address] [address] Adarsh Skinner WBC 9.2 103/ul Normal 4.0-11.0 [facility] Comment on above: Performed By: #### C BC #### [facility] [address] [address] [address] Adarsh Skinner GLYCOHEMOGLOBIN A1Con 2021 ADA RECOMMENDATION SEE BELOW Normal [facility] Comment on above: Result Comment: ADA RECOMMENDED LIMIT 4.0 - 6.0 ADA THERAPEUTIC TARGET < 7.0 ACTION SUGGESTED > 7.0 Performed By: #### A 1C ####[facility] [address] [id number]. Adarsh Skinner Glucose [Mass/Vol] 143 mg/dL Normal [facility] Comment on above: Performed By: #### A 1C ####[facility] [address] [id number]. Adarsh Skinner HbA1c (Bld) [Mass fraction] 6.6 % Critically high 4.5-6.2 [facility] Comment on above: Performed By: #### A 1C ####[facility] [address] [place], [place] [address]QbDr. Adarsh Skinner LIPID PROFILEon 01-07-2022 CHOL-HDL RATIO NORM SEE BELOW Normal [facility] Comment on above: Result Comment: 3.3 - 4.4 LOW RISK 4.4 - 7.1 AVERAGE RISK 7.1 - 11.0 MODERATE RISK >11.0 HIGH RISK Performed By: #### C MP, LIPID #### [facility] [address] [place], [place] [address] Dr. Adarsh Skinner Cholesterol [Mass/Vol] 121 mg/dL Normal <=200 [facility] Comment on above: Performed By: #### C MP, LIPID #### [facility] [address] [place], [place] [address] Dr. Adarsh Skinner Cholesterol in HDL [Mass/Vol] 55 mg/dL Normal 40-60 [facility] Comment on above: Performed By: #### C MP, LIPID #### [facility] [address] [address] [address] Adarsh Skinner Cholesterol in LDL [Mass/Vol] 50.8 mg/dL Normal [facility] Comment on above: Performed By: #### C MP, LIPID #### [facility] [address] [place], [place] [address] Dr. Adarsh Skinner Cholesterol.total/Ch olesterol in HDL [Mass ratio] 2.2 {ratio} Normal [facility] Comment on above: Performed By: #### C MP, LIPID #### [facility] [address] [place], [place] [address] Dr. Adarsh Skinner HDL NORMAL > or = 60 mg/dl - LO W CARDIOVASCULAR RISK <40 mg/dl - HIGH CARDIOVASCULAR RISK Normal [facility] Comment on above: Performed By: #### C MP, LIPID #### [facility] [address] [place], [place] [address] Dr. Adarsh Skinner LDL CALC NORMAL SEE BELOW Normal [facility] Comment on above: Result Comment: <100 mg/dl OPTIMAL 100 - 129 mg/dl NEAR OR ABOVE OPTIMAL 130 - 159 mg/dl BORDERLINE HIGH 160 - 189 mg/dl HIGH >190 mg/dl VERY HIGH Performed By: #### C MP, LIPID #### [facility] [address] [place] [address] Dr. Adarsh Skinner Triglyceride [Mass/Vol] 76 mg/dL Normal <=150 [facility] Comment on above: Performed By: #### C MP, LIPID #### [facility] [address] [place] [address] Dr. Adarsh Skinner VLDL CALC 15.2 mg/dL Normal [facility] Comment on above: Performed By: #### C MP, LIPID #### [facility] [address] [place] [address] Dr. Adarsh Skinner PROF 14(COMP METB)on 022 Albumin [Mass/Vol] 3.6 g/dL Normal 3.4-5.0 [facility] Comment on above: Performed By: #### C MP, LIPID #### [facility] [address] [place] [address] Dr. Adarsh Skinner Albumin/Globulin [Mass ratio] 1.1 {ratio} Normal [facility] Comment on above: Performed By: #### C MP, LIPID #### [facility] [address] [place] [address] Dr. Adarsh Skinner ALP [Catalytic activity/Vol] 57 U/L Normal 46-116 [facility] Comment on above: Performed By: #### C MP, LIPID #### [facility] [address] [place] [address] Dr. Adarsh Skinner ALT [Catalytic activity/Vol] 23 U/L Normal 14-59 [facility] Comment on above: Performed By: #### C MP, LIPID #### [facility] [address] [place] [address] Dr. Adarsh Skinner Anion gap [Moles/Vol] 14.7 mmol/L Normal [facility] Comment on above: Performed By: #### C MP, LIPID #### [facility] [address] [place] [address] Dr. Adarsh Skinner AST [Catalytic activity/Vol] 29 U/L Normal 15-37 [facility] Comment on above: Performed By: #### C MP, LIPID #### [facility] [address] [place] [address] Dr. Adarsh Skinner Bilirubin [Mass/Vol] 0.8 mg/dL Normal 0.2-1.0 [facility] Comment on above: Performed By: #### C MP, LIPID #### [facility] [address] [place] [address] Dr. Adarsh Skinner Calcium [Mass/Vol] 10.2 mg/dL Critically high 8.5-10.1 [facility] Comment on above: Performed By: #### C MP, LIPID #### [facility] [address] [place] [address] Dr. Adarsh Skinner Chloride [Moles/Vol] 104 mmol/L Normal 98-107 [facility] Comment on above: Performed By: #### C MP, LIPID #### [facility] [address] [place] [address] Dr. Adarsh Skinner CO2 [Moles/Vol] 25.0 mmol/L Normal 21.0-32.0 [facility] Comment on above: Performed By: #### C MP, LIPID #### [facility] [address] [place] [address] Dr. Adarsh Skinner Creatinine [Mass/Vol] 1.32 mg/dL Critically high 0.55-1.02 [facility] Comment on above: Performed By: #### C MP, LIPID #### [facility] [address] [place] [address] Dr. Adarsh Skinner EGFR-AF CAMBODIAN 48 mL/min/1.73m2 Critically low >=60 [facility] Comment on above: Performed By: #### C MP, LIPID #### [facility] [address] [place] [address] Dr. Adarsh Skinner EGFR-NON AF CAMBODIAN 39 mL/min/1.73m2 Critically low >=60 [facility] Comment on above: Performed By: #### C MP, LIPID #### [facility] [address] [place] [address] Dr. Adarsh Skinner Globulin (S) [Mass/Vol] 3.4 g/dL Normal [facility] Comment on above: Performed By: #### C MP, LIPID #### [facility] [address] [address] [address] Adarsh Skinner Glucose [Mass/Vol] 177 mg/dL Critically high 74-106 [facility] Comment on above: Performed By: #### C MP, LIPID #### [facility] [address] [address] [address] Adarsh Skinner Potassium [Moles/Vol] 4.7 mmol/L Normal 3.5-5.1 [facility] Comment on above: Performed By: #### C MP, LIPID #### [facility] [address] [place] [address] Dr. Adarsh Skinner Protein [Mass/Vol] 7.0 g/dL Normal 6.4-8.2 [facility] Comment on above: Performed By: #### C MP, LIPID #### [facility] [address] [address] [address] Adarsh Skinner Sodium [Moles/Vol] 139 mmol/L Normal 136-145 [facility] Comment on above: Performed By: #### C MP, LIPID #### [facility] [address] [place] [address] Dr. Adarsh Skinner Urea nitrogen [Mass/Vol] 20.0 mg/dL Critically high 7.0-18.0 [facility] Comment on above: Performed By: #### C MP, LIPID #### [facility] [address] [place] [address] Dr. Adarsh Skinner Urea nitrogen/Creatinine [Mass ratio] 15.2 mg/mg Normal [facility] Comment on above: Performed By: #### C MP, LIPID #### [facility] [address] [place] [address] Dr. Adarsh Skinner Tobacco Screening.on 022 Fall risk assessment a) No falls within the last year -[facility] [employer] k 600 DO Work Phone: Tobacco use status [facility] b) No -[facility] [place] 600 DO Work Phone: MG MAMM SCREEN 3D LESIA CADon 12-01-2021 MG MAMM SCREEN 3D LESIA CAD Patient: NETTA DAWSON Exam Date: 12/01/2021 : 1950 Gender:F Ordering : DR DOMONIQUE HATFIELD . Admission #: [id number] Family : Order #: [id number] CLICK HERE TO VIEW EXAM RADIOLOGY REPORT PROCEDURE: MAMMOGRAM SCREENING 3D BILATERAL CAD COMPARISON: MG MAMM SCREEN LESIA W CAD, 11/16/2019. MG MAMM SCREEN 3D LESIA CAD, 11/28/2020. INDICATIONS: Screening mammography Calculator Name NCI Breast Cancer Risk Assessment Tool 5 Year Breast Cancer Risk 1.50% Lifetime Breast Cancer Risk 3.70% Personal Breast Cancer No Personal Ovarian Cancer No Treatments None Family Cancers None LOCATION: [facility] BREAST COMPOSITION: Scattered areas fibroglandular density. [...] Kendall MD on 12/01/2021 at 11:[address] [facility] GLYCOHEMOGLOBIN A1Con 2021 ADA RECOMMENDATION SEE BELOW Normal [facility] Comment on above: Result Comment: ADA RECOMMENDED LIMIT 4.0 - 6.0 ADA THERAPEUTIC TARGET < 7.0 ACTION SUGGESTED > 7.0 Performed By: #### A 1C #### [facility] [address] [address] [address] Adarsh Skinner Glucose [Mass/Vol] 154 mg/dL Normal [facility] Comment on above: Performed By: #### A 1C #### [facility] [address] [place], [place] [address] Dr. Adarsh Skinner HbA1c (Bld) [Mass fraction] 7.0 % Critically high 4.5-6.2 [facility] Comment on above: Performed By: #### A 1C #### [facility] [address] [place] [address] Dr. Adarsh Skinner Tobacco Screening.on 022 Fall risk assessment a) No falls within the last year [facility] k 600 DO Work Phone: Tobacco use status [facility] b) No [facility] k 600 DO Work Phone: MICROALBUMIN, RAND URon 07-0 mALB 17.9 mg/L Normal <=30.0 [facility] Comment on above: Performed By: #### M ALBR #### [facility] [address] [place] [address] Dr. Adarsh Skinner PROF CHEM 8 (BAS METB)on Anion gap [Moles/Vol] 20.0 mmol/L Normal [facility] Comment on above: Performed By: #### B MP #### [facility] [address] [place] [address] Dr. Adarsh Skinner Calcium [Mass/Vol] 9.6 mg/dL Normal 8.5-10.1 [facility] Comment on above: Performed By: #### B MP #### [facility] [address] [place] [address] Dr. Adarsh Skinner Chloride [Moles/Vol] 106 mmol/L Normal 98-107 [facility] Comment on above: Performed By: #### B MP #### [facility] [address] [place] [address] Dr. Adarsh Skinner CO2 [Moles/Vol] 17.4 mmol/L Critically low 21.0-32.0 [facility] Comment on above: Performed By: #### B MP #### [facility] [address] [place] [address] Dr. Adarsh Skinner Creatinine [Mass/Vol] 1.28 mg/dL Critically high 0.55-1.02 [facility] Comment on above: Performed By: #### B MP #### [facility] [address] [place] [address] Dr. Adarsh Skinner EGFR-AF CAMBODIAN 50 mL/min/1.73m2 Critically low >=60 [facility] Comment on above: Performed By: #### B MP #### [facility] [address] [address] [address] Adarsh Skinner EGFR-NON AF CAMBODIAN 41 mL/min/1.73m2 Critically low >=60 [facility] Comment on above: Performed By: #### B MP #### [facility] [address] [address] [address] Adarsh Skinner Glucose [Mass/Vol] 50 mg/dL Critically low 74-106 [facility] Comment on above: Performed By: #### B MP #### [facility] [address] [address] [address] Adarsh Skinner Potassium [Moles/Vol] 4.3 mmol/L Normal 3.5-5.1 [facility] Comment on above: Performed By: #### B MP #### [facility] [address] [address] [address] Adarsh Skinner Sodium [Moles/Vol] 141 mmol/L Normal 136-145 [facility] Comment on above: Performed By: #### B MP #### [facility] [address] [address] [address] Adarsh Skinner Urea nitrogen [Mass/Vol] 17.0 mg/dL Normal 7.0-18.0 [facility] Comment on above: Performed By: #### B MP #### [facility] [address] Adarsh Skinner Urea nitrogen/Creatinine [Mass ratio] 13.2 mg/mg Normal [facility] Comment on above: Performed By: #### B MP #### [facility] [address] Adarsh Skinner PHQ-2 VITALSon 07-22-2021 Adult depression screening assessment Yes -[facility] [address] DO Work Phone: Adult depression screening assessment No -[facility] [address] DO Work Phone: PHQ-2 VITALS 0-Not at all [facility] [employer]oughtMarcela Nayak DO Work Phone: PHQ-2 VITALS 1-Several days [facility] Sonia Nayak DO Work Phone: PHQ-2 VITALS 3-Nearly every day [facility] KymetaMikki Nayak DO Work Phone: PHQ-2 VITALS Not difficult at all [facility] Sonia Nayak DO Work Phone: Tobacco Screening.on 022 Fall risk assessment b) One or more fall s in the last year [facility] KymetaMikki Nayak DO Work Phone: Tobacco use status [facility] b) No [facility] KymetaMikki Nayak DO Work Phone: NM MYOCARDIAL PERFUSION [...] not treadmill candidate Attending Physician: Sierra Jc [id number] Primary Nurse: Violet Hope RN Secondary Nurse: [...] infusion. LEXISCAN. Radiopharmaceutical: Tc-99m Sestamibi Camera Used: [employer] Radiopharmaceutical: Tc-99m Sestamibi Camera Used: [employer] Image Protocol Protocol: Rest/Stress 1 Day Rest [...] PM Dict (more content not included)... Normal [facility] Comment on above: Order Comment: Injur y/Trauma [...] Date: 07/01/2021 10:16 AM Patient Status: Inpatient Field Nurse Case Manager: Laura Shaw RDMS, RVT Exam Type: ECHOCARDIOGRAM COMPLETE Study Info Indications - Other - Palpitations Attending Physician: [facility] [place] [facility] Referring Physician: STAN Lechuga; [id number] BMI: 25.61 kg/m2 Summary 1. Normal cardiac [...] Normal ---- MV Doppler ---- MV Decel [place] 593 cm/s2 MV PHT 39 ms MV [...] Normal - (more content not included)... Normal [facility] XR CHEST PA/APon 05-23-2022 XR CHEST PA/AP EXAMINATION: XR CHEST PA/AP 06/30/2021 9:51 pm HISTORY: ORDERING SYSTEM PROVIDED HISTORY: irreg heart rythm, TECHNOLOGIST PROVIDED HISTORY: Illness/Other Reason for exam: [...] blood sugar was really low at the [facility]. Pt is having runs of [place] [...] WedJune 30, 2021 10:21:35 PM EDT Normal [facility] Comment on above: Order Comment: Injur y/Trauma [...] blood sugar was really low at the [facility]. Pt is having runs of [place] harris MD aware. Pads attached to monitor at this time Vital Signs Date Time Vital Sign Value Performing Clinician Facility 09-28-2023 10:29040 Body height 157.48 cm [facility] 09-28-2023 10:290400 Body mass index (BMI) [Ratio] 31.6 kg/m2 [facility] 09-28-2023 10:29040 Body temperature 97.4 [degF] [facility] 09-28-2023 10:29040 Body weight 78.47 kg [facility] 09-28-2023 10:29040 Diastolic blood pressure 68 mm[Hg] [facility] 09-28-2023 10:29040 Heart rate 84 /min [facility] 09-28-2023 10:29040 Respiratory rate 16 /min [facility] 09-28-2023 10:290400 SaO2% (BldA) [Mass fraction] 96 % [facility] 09-28-2023 10:290400 Systolic blood pressure 138 mm[Hg] [facility] 04-29-2023 13:41-0400 Body height 157.5 cm Gary Chávez CALL CENTER OPERATOR-ORDER CLERK Work Phone: [facility] 04-29-2023 13:41-0400 Body mass index (BMI) [Ratio] 32.37 kg/m2 Gary Chávez CALL CENTER OPERATOR-ORDER CLERK Work Phone: [facility] 04-29-2023 13:41-0400 Body weight 80.29 kg Gary Chávez CALL CENTER OPERATOR-ORDER CLERK Work Phone: [facility] 04-29-2023 13:41-0400 Diastolic blood pressure 60 mm[Hg] Gary Chávez CALL CENTER OPERATOR-ORDER CLERK Work Phone: [facility] 04-29-2023 13:41-0400 Heart rate 80 /min Gary Chávez CALL CENTER OPERATOR-ORDER CLERK Work Phone: [facility] 04-29-2023 13:41-0400 Systolic blood pressure 116 mm[Hg] Gary Chávez CALL CENTER OPERATOR-ORDER CLERK Work Phone: [facility] 03-02-2023 10:00-0500 Body height 157.48 cm Azyecenia Houstons Other [employer] Other 03-02-2023 10:00-0500 Body mass index (BMI) [Ratio] 32.55 kg/m2 Aziz Aliciahous Other [employer] Other 03-02-2023 10:00-0500 Body temperature 96.6 [degF] Aziz Aliciahous Other [employer] Other 03-02-2023 10:00-0500 Body weight 80.74 kg Azyecenia Vargashous Other [employer] Other 03-02-2023 10:00-0500 Diastolic blood pressure 70 mm[Hg] Aziz Aliciahous Other [employer] Other 03-02-2023 10:00-0500 Respiratory rate 18 /min Ramsey Vargashous Other [employer] Other 03-02-2023 10:00-0500 SaO2% (BldA) [Mass fraction] 99 % Aziz Aliciahous Other [employer] Other 03-02-2023 10:00-0500 Systolic blood pressure 110 mm[Hg] Aziz Bakhous Other [employer] Other 09-15-2022 11:40-0400 Body height 157.48 cm Aziz Aliciahous Other [employer] Other 09-15-2022 11:40-0400 Body mass index (BMI) [Ratio] 32.92 kg/m2 Ramsey Steward Other [employer] Other 09-15-2022 11:40-0400 Body temperature 96.1 [degF] Ramsey Steward Other [employer] Other 09-15-2022 11:40-0400 Body weight 81.65 kg Ramsey Steward Other [employer] Other 09-15-2022 11:40-0400 Diastolic blood pressure 72 mm[Hg] Ramsey Steward Other [employer] Other 09-15-2022 11:40-0400 Respiratory rate 18 /min Ramsey Steward Other [employer] Other 09-15-2022 11:40-0400 SaO2% (BldA) [Mass fraction] 97 % Ramsey Steward Other [employer] Other 09-15-2022 11:40-0400 Systolic blood pressure 140 mm[Hg] Ramsey Steward Other [employer] Other 06-19-2022 10:14-0400 Body height 157.48 cm Domonique Mason Hatfield Work Phone: [employer] 600 DO Work Phone: 06-19-2022 10:14-0400 Body mass index (BMI) [Ratio] 34.39 kg/m2 Domonique Mason Hatfield Work Phone: [employer] 600 DO Work Phone: 06-19-2022 10:14-0400 Body surface area Derived from formula 1.86 m2 Domonique Hatfield Work Phone: [facility] 600 DO Work Phone: 06-19-2022 10:14-0400 Body weight 85.28 kg Domonique Hatfield Work Phone: [facility] 600 DO Work Phone: 06-19-2022 10:14-0400 Diastolic blood pressure 68 mm[Hg] Domonique Mason Hatfield Work Phone: [facility] 600 DO Work Phone: 06-19-2022 10:14-0400 Heart rate 66 /min Domonique Hatfield Work Phone: [facility] 600 DO Work Phone: 06-19-2022 10:14-0400 Systolic blood pressure 138 mm[Hg] Domonique Mason Hatfield Work Phone: [facility] 600 DO Work Phone: 06-19-2022 10:14-0400 7 1 Domonique Hatfield Work Phone: [facility] [employer] 600 DO Work Phone: Comment on above: PHQ-9 TS 04-22-2022 11:20-0400 Body height 157.48 cm [employer] Other [employer] Other 04-22-2022 11:20-0400 Body mass index (BMI) [Ratio] 34.53 kg/m2 [employer] Other [employer] Other 04-22-2022 11:20-0400 Body temperature 97.3 [degF] [employer] Other [employer] Other 04-22-2022 11:20-0400 Body weight 85.64 kg [employer] Other [employer] Other 04-22-2022 11:20-0400 Diastolic blood pressure 80 mm[Hg] Ramsey Steward Other [employer] Other 04-22-2022 11:20-0400 Respiratory rate 18 /min Ramsey Steward Other [employer] Other 04-22-2022 11:20-0400 SaO2% (BldA) [Mass fraction] 98 % Ramsey Steward Other [employer] Other 04-22-2022 11:20-0400 Systolic blood pressure 154 mm[Hg] Ramsey Steward Other [employer] Other 01-19-2022 10:58-0500 Body height 157.48 cm Domonique Hatfield Work Phone: [facility] [employer] 600 DO Work Phone: 01-19-2022 10:58-0500 Body mass index (BMI) [Ratio] 35.48 kg/m2 Domonique Hatfield Work Phone: [facility] [employer] 600 DO Work Phone: 01-19-2022 10:58-0500 Body surface area Derived from formula 1.89 m2 Domonique Hatfield Work Phone: [facility] [employer] 600 DO Work Phone: 01-19-2022 10:58-0500 Body weight 88 kg Domonique Hatfield Work Phone: [facility] [employer] 600 DO Work Phone: 01-19-2022 10:58-0500 Diastolic blood pressure 60 mm[Hg] Domonique Hatfield Work Phone: [facility] 600 DO Work Phone: 01-19-2022 10:58-0500 Heart rate 68 /min Domonique Cuevas Hatfield Work Phone: [facility] 600 DO Work Phone: 01-19-2022 10:58-0500 Systolic blood pressure 136 mm[Hg] Domonique Cuevas Hatfield Work Phone: [facility] 600 DO Work Phone: 12-05-2021 10:36-0400 Body height 157.48 cm Domonique Cuevas Hatfield Work Phone: [facility] 600 DO Work Phone: 12-05-2021 10:36-0400 Body mass index (BMI) [Ratio] 36.03 kg/m2 Domonique Cuevas Hatfield Work Phone: [facility] 600 DO Work Phone: 12-05-2021 10:36-0400 Body surface area Derived from formula 1.9 m2 Domonique Cuevas Hatfield Work Phone: [facility] 600 DO Work Phone: 12-05-2021 10:36-0400 Body weight 89.36 kg Domonique Cuevas Hatfield Work Phone: [facility] 600 DO Work Phone: 12-05-2021 10:36-0400 Diastolic blood pressure 64 mm[Hg] Domonique Mason Hatfield Work Phone: [facility] 600 DO Work Phone: 12-05-2021 10:36-0400 Heart rate 88 /min Domonique Mason Hatfield Work Phone: [facility] 600 DO Work Phone: 12-05-2021 10:36-0400 Systolic blood pressure 120 mm[Hg] Domonique Cuevas Hatfield Work Phone: [facility] 600 DO Work Phone: 08-27-2021 09:21-0400 Body height 157.48 cm Domonique Gonzalezight Work Phone: [facility] 600 DO Work Phone: 08-27-2021 09:21-0400 Body mass index (BMI) [Ratio] 37.31 kg/m2 Domonique Gonzalezight Work Phone: [facility] 600 DO Work Phone: 08-27-2021 09:21-0400 Body surface area Derived from formula 1.93 m2 Domonique Hatfield Work Phone: [facility] 600 DO Work Phone: 08-27-2021 09:21-0400 Body weight 92.53 kg Domonique Hatfield Work Phone: [facility] 600 DO Work Phone: 08-27-2021 09:21-0400 Diastolic blood pressure 64 mm[Hg] Domonique Hatfield Work Phone: [facility] 600 DO Work Phone: 08-27-2021 09:21-0400 Heart rate 80 /min Domonique Hatfield Work Phone: [facility] 600 DO Work Phone: 08-27-2021 09:21-0400 Systolic blood pressure 110 mm[Hg] Domonique Hatfield Work Phone: [facility] 600 DO Work Phone: 07-22-2021 08:58-0400 Diastolic blood pressure 60 mm[Hg] Domoniqeu Hatfield Work Phone: [facility] 250 DO Work Phone: 07-22-2021 08:58-0400 Systolic blood pressure 126 mm[Hg] Domonique Cuevas Liu Work Phone: [facility] 250 DO Work Phone: 07-22-2021 08:58-0400 Systolic blood pressure 134 mm[Hg] Domonique Cuevas Liu Work Phone: [facility] 250 DO Work Phone: 07-22-2021 08:40-0400 Diastolic blood pressure 60 mm[Hg] Domonique Cuevas Liu Work Phone: [facility] 250 DO Work Phone: 07-22-2021 08:40-0400 Systolic blood pressure 128 mm[Hg] Domonique Cuevas Liu Work Phone: [facility] 250 DO Work Phone: 07-22-2021 08:36-0400 Body height 157.48 cm Domonique Cuevas Liu Work Phone: [facility] 250 DO Work Phone: 07-22-2021 08:36-0400 Body mass index (BMI) [Ratio] 38.23 kg/m2 Domonique Cuevas Liu Work Phone: [facility] 250 DO Work Phone: 07-22-2021 08:36-0400 Body surface area Derived from formula 1.95 m2 Domonique Gonzalezight Work Phone: [facility] 250 DO Work Phone: 07-22-2021 08:36-0400 Body weight 94.8 kg Domonique Gonzalezight Work Phone: [facility] 250 DO Work Phone: 07-22-2021 08:36-0400 Diastolic blood pressure 62 mm[Hg] Domonique Gonzalezight Work Phone: [facility] 250 DO Work Phone: 07-22-2021 08:36-0400 Heart rate 56 /min Domonique Hatfield Work Phone: [facility] 250 DO Work Phone: 07-22-2021 08:36-0400 Systolic blood pressure 130 mm[Hg] Domonique Hatfield Work Phone: [facility] 250 DO Work Phone: 07-22-2021 08:27-0400 6 1 Domonique Hatfield Work Phone: [facility] 250 DO Work Phone: Comment on above: PHQ-9 TS 11-18-2020 13:35-0400 Body height 157.48 cm Oxana Bermanault Other [employer] Other 11-18-2020 13:35-0400 Body mass index (BMI) [Ratio] 36.58 kg/m2 Oxana Matteo Other [employer] Other 11-18-2020 13:35-0400 Body temperature 97.1 [degF] Oxana Matteo Other [employer] Other 11-18-2020 13:35-0400 Body weight 90.72 kg Oxana Matteo Other [employer] Other 11-18-2020 13:35-0400 Diastolic blood pressure 61 mm[Hg] Oxana Matteo Other [employer] Other 11-18-2020 13:35-0400 Respiratory rate 18 /min Oxana Matteo Other [employer] Other 11-18-2020 13:35-0400 SaO2% (BldA) [Mass fraction] 98 % Oxana Felipe Other [employer] Other 11-18-2020 13:35-0400 Systolic blood pressure 120 mm[Hg] Oxana Felipe Other [employer] Other Encounters Encounter Date Encounter Type Care Provider Facility Start: 12-25-2024 ambulatory Dewayne CuevasRodger Richey Facility :[facility] [place] Start: 03-27-2024 ambulatory Dewayne Richey Facility :[facility] [place] Start: 01-04-2024 ambulatory Denia Rowell [facility] Start: 12-31-2023 End: 12-31-2023 Lab Drop off Dewayne Richey [facility] Start: 12-31-2023 End: 12-31-2023 ambulatory Dewayne Zhao Mat Facility:[facility] [place] Start: 12-28-2023 End: 12-28-2023 ambulatory Denia Rowell Facility:[facility] Start: 12-28-2023 End: 12-28-2023 Patient encounter procedure Denia Rowell [facility] Start: 12-23-2023 End: 12-23-2023 ambulatory Pilar Rodriguez Facility:[facility] [place] Start: 12-21-2023 End: 12-21-2023 ambulatory Denia Rowell Facility:[facility] Start: 12-21-2023 End: 12-21-2023 Patient encounter procedure Denia Rowell [facility] Start: 12-14-2023 ambulatory Denia Rowell Facility [facility] Start: 11-24-2023 End: 11-24-2023 ambulatory Denia Rowell Facility:[facility] Start: 11-24-2023 End: 11-24-2023 Patient encounter procedure Denia Rowell [facility] [facility] Start: 11-10-2023 End: 11-10-2023 ambulatory Denia Rowell Facility:[facility] Start: 11-10-2023 End: 11-10-2023 Patient encounter procedure Denia Rowell [facility] Start: 10-13-2023 End: 10-13-2023 ambulatory RBAIN Arambulaler Facility:[facility] Start: 10-13-2023 End: 10-13-2023 Patient encounter procedure Denia Rowell [facility] Start: 09-29-2023 End: 09-29-2023 ambulatory BRAIN Rowell Facility:[facility] Start: 09-29-2023 End: 09-29-2023 Patient encounter procedure Denia Rowell [facility] Start: 09-28-2023 End: 09-28-2023 ambulatory [facility] Work Phone: Start: 09-28-2023 End: 09-28-2023 Patient encounter procedure [facility] Physician [facility] Nephrology Miguel A Work Phone: Start: 09-27-2023 End: 09-27-2023 Lab Drop off Dewayne Richey [facility] Start: 09-27-2023 End: 09-27-2023 ambulatory Dewayne Richey Facility:[facility] Start: 09-22-2023 Non-patient / Non-visit [facility] Physician [facility] Professional Co Work Phone: Start: 09-15-2023 End: 09-15-2023 ambulatory BRAIN Arambulaler Facility:[facility] Start: 09-15-2023 End: 09-15-2023 Patient encounter procedure Denia Rowell [facility] Start: 09-01-2023 End: 09-01-2023 ambulatory STAFF [employer] DEFENSE OFFICER Denia Cordero Rowell Facility:[facility] Start: 09-01-2023 End: 09-01-2023 Patient encounter procedure Denia Cordero Sorin [facility] Start: 08-13-2023 ambulatory BRAIN Loza Rowell Facil ity:[facility] Mariaelena Start: 07-21-2023 ambulatory BRAIN Denia Gil Rowell Fac ility:[facility] Start: 07-20-2023 End: 07-20-2023 ambulatory DOMINIC ORTEGA Facility:[facility] Start: 06-30-2023 ambulatory STAFF [employer] DEFENSE OFFICER Denia Rowell Fac ility:[facility] Start: 06-29-2023 End: 06-29-2023 ambulatory Dewayne Richey Facility:[facility] Start: 06-09-2023 End: 06-09-2023 ambulatory BRAIN Rowell Facility:[facility] Start: 06-09-2023 End: 06-09-2023 Patient encounter procedure Denia Gil Rowell [facility] Start: 05-26-2023 End: 05-26-2023 ambulatory BRAIN Rowell Facility:[facility] Start: 05-26-2023 End: 05-26-2023 Patient encounter procedure Denia Cordero Sorin [facility] Start: 04-29-2023 End: 04-29-2023 Office outpatient visit 15 minutes [facility] CALL CENTER OPERATOR-ORDER CLERK Work Phone: [facility] Comment on above: Coronary artery dise ase involving [place] coronary artery of [place] heart without angina pectoris (Primary Dx); Benign essential hypertension; Mixed hyperlipidemia; PVC's (premature ventricular contractions); 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 ([facility]); BMI 32.0-32.9,adult Start: 04-29-2023 End: 04-29-2023 ambulatory [facility] Ambulatory Start: 04-27-2023 End: 04-27-2023 ambulatory BRAIN Rowell Facility:[facility] Start: 04-27-2023 End: 04-27-2023 Patient encounter procedure Denia Gil Rowell [facility] Start: 03-30-2023 End: 03-30-2023 Lab Drop off Dewayne Richey [facility] Start: 03-30-2023 End: 03-30-2023 Patient encounter procedure Denia Rowell [facility] Start: 03-30-2023 End: 03-30-2023 ambulatory Dewayne Richey [facility] Start: 03-09-2023 End: 03-09-2023 ambulatory BRAIN Rowell Facility:[facility] Start: 03-09-2023 End: 03-09-2023 Patient encounter procedure Denia Rowell [facility] Start: 03-02-2023 End: 03-02-2023 ambulatory Ramsey Steward Other [employer] Other Start: 03-02-2023 Office outpatient vi sit 25 minutes Ramsey Steward [facility] Nephrology Miguel A Start: 02-23-2023 End: 02-23-2023 ambulatory [employer]AFF [employer] OFFICER Denia Rowell Facility:[facility] Start: 02-23-2023 End: 02-23-2023 Patient encounter procedure Denia Rowell [facility] Start: 02-16-2023 End: 02-16-2023 ambulatory [employer]AFF [employer] DEFENSE OFFICER Denia Rowell Facility:[facility] Start: 02-16-2023 End: 02-16-2023 Patient encounter procedure Denia Rowell [facility] Start: 02-09-2023 End: 02-09-2023 ambulatory STAFF [employer] DEFENSE OFFICER Denia Rowell Facility:[facility] Start: 02-09-2023 End: 02-09-2023 Patient encounter procedure Denia Rowell [facility] Start: 02-02-2023 End: 02-02-2023 ambulatory BRAIN Rowell Facility:[facility] Start: 02-02-2023 End: 02-02-2023 Patient encounter procedure Denia Rowell [facility] Start: 01-26-2023 End: 01-26-2023 ambulatory BRAIN Rwoell Facility:[facility] Start: 01-19-2023 End: 01-19-2023 ambulatory BRAIN Rowell Facility:[facility] Start: 01-12-2023 End: 01-12-2023 ambulatory [employer]AFF [employer] OFFICER Denia Rowell Facility:[facility] Start: 01-12-2023 End: 01-12-2023 Patient encounter procedure Denia Rowell [facility] Start: 01-05-2023 End: 01-05-2023 ambulatory BRAIN Rowell Facility:[facility] Start: 01-05-2023 End: 01-05-2023 Patient encounter procedure Denia Rowell [facility] Start: 12-29-2022 End: 12-29-2022 ambulatory BRAIN Rowell Facility:[facility] Start: 12-29-2022 End: 12-29-2022 Patient encounter procedure Denia Rowell [facility] Start: 12-22-2022 End: 12-22-2022 Patient encounter procedure Denia Rowell [facility] Start: 10-07-2022 Rx Renewal Domonique Hatfield Work Phone: [facility] 600 DO Work Phone: Start: 10-05-2022 End: 10-05-2022 Lab Drop off Dewayne Richey [facility] Start: 09-15-2022 End: 09-15-2022 ambulatory Ramsey Steward Other [place] Other Start: 09-15-2022 Office outpatient vi sit 15 minutes Aziz Bakhous [facility] Miguel A Start: 07-07-2022 End: 07-08-2022 ambulatory DEWAYNE RICHEY Facility:[facility] Start: 07-07-2022 End: 07-07-2022 Lab Drop off DOMONIQUE HATFIELD [facility] Start: 06-19-2022 Office outpatient vi sit 25 minutes Domonique Hatfield Work Phone: [facility] 600 DO Work Phone: Start: 06-19-[address] Domonique Miranda acility: Start: 06-01-2022 End: 06-01-2022 ambulatory Ramsey Aliciaamalia Other [place] Other Start: 06-01-2022 Telephone encounter Azyecenia Bakchantels [facility] Start: 05-26-2022 End: 05-27-[address] DOMONIQUE HATFIELD . Facility:[facility] Start: 04-22-2022 End: 04-22-2022 ambulatory Ramsey Steward Other [place] Other Start: 04-22-2022 Office outpatient ne w 30 minutes Azyecenia Houstons [facility] Start: 04-06-2022 End: 04-07-[address] DOMONIQUE HATFIELD . Facility:[facility] Start: 03-05-[address] Domonique Miranda acility: Start: 03-04-2022 Rx Renewal Domonique Hatfield Work Phone: [facility] 250 DO Work Phone: Start: 02-23-2022 Patient encounter procedure Domonique Hatfield Work Phone: [facility] 250 DO Work Phone: Start: 02-23-[address] Domonique Miranda acility: Start: 01-27-2022 AUDIT Domonique Hatfield Work Phone: [facility] 250 DO Work Phone: Start: 01-19-[address] Domonique Miranda acility: Start: 01-19-2022 Office outpatient vi sit 25 minutes Domonique Hatfield Work Phone: [facility] 250 DO Work Phone: Start: 01-19-2022 Patient encounter procedure Domonique Hatfield Work Phone: [facility] 600 DO Work Phone: Start: 01-07-2022 End: 01-08-[address] DOMONIQUE HATFIELD . Facility:[facility] Start: 12-05-2021 Office outpatient vi sit 25 minutes Domonique Hatfield Work Phone: [facility] 600 DO Work Phone: Start: 12-05-[address] Domonique Miranda acility: Start: 12-01-2021 End: 12-02-[address] DOMONIQUE HATFIELD . Facility:[facility] Start: 11-13-2021 Rx Renewal Domonique Hatfield Work Phone: [facility] 250 DO Work Phone: Start: 10-31-[address] Domonique Miranda acility: Start: 10-28-2021 Patient encounter procedure Domonique Hatfield Work Phone: [facility] 600 DO Work Phone: Start: 10-28-[address] Domonique Miranda acility: Start: 10-01-2021 End: 10-02-[address] DOMONIQUE HATFIELD . Facility:[facility] Start: 08-27-2021 Office outpatient vi sit 25 minutes Domonique Hatfield Work Phone: [facility] 600 DO Work Phone: Start: 08-27-[address] Domonique Miranda acility: Start: 08-09-2021 End: 08-10-[address] DOMONIQUE HATFIELD . Facility:[facility] Start: 08-06-2021 End: 08-07-[address] DOMONIQUE HATFIELD . Facility: Start: 07-22-2021 Patient encounter procedure Domonique Hatfield Work Phone: [facility] 250 DO Work Phone: Start: 07-22-[address] Domonique Miranda acility: Start: 06-30-2021 End: 07-03-2021 Evaluation and management of inpatient [facility] Start: 12-11-2020 Telephone encounter Domonique Bobo ht Work Phone: [facility] 250 DO Work Phone: Start: 11-18-2020 (URG) Urgent Care Visit Oxana long [facility] Urgent Care Miguel A Procedures Date Procedure Procedure Detail Performing Clinician Start: 02-22-2023 End: 04-29-2023 History of placement of stent in anterior descending branch of left coronary artery Status post insertion of drug-eluting stent into left anterior descending (LAD) artery Gary Chávez CALL CENTER OPERATOR-ORDER CLERK Work Phone: Start: 07-01-2021 Thyrotropin [Units/v olume] in Serum or Plasma Gary Chávez CALL CENTER OPERATOR-ORDER CLERK Work Phone: Start: 11-16-2019 Mammography Gary jane CALL CENTER OPERATOR-ORDER CLERK Work Phone: Appendectomy Domonique Hatfield Work Phone: Appendectomy DOMONIQUE HATFIELD Arthroscopy DOMONIQUE HATFIELD Comment on above: left knee Bilateral cataracts (disorder) DOMONIQUE HATFIELD Cardiac catheterization Domonique Hatfield Work Phone: Cataract surgery Domonique E Knigh t Work Phone: Cholecystectomy Domonique Hatfield Work Phone: Cholecystectomy DOMONIQUE HATFIELD History of placement of stent in anterior descending branch of left coronary artery Status post insertion of drug-eluting stent into left anterior descending (LAD) artery Domonique Hatfield Work Phone: Hysterectomy Domonique Hatfield Work Phone: Laparoscopy Domonique Hatfield Work Phone: Lumpectomy of breast Domonique Faria night Work Phone: Operation on bladder Domonique Faria night Work Phone: Operative procedure on knee Domonique Hatfield Work Phone: Tonsillectomy and adenoidectomy Domonique Hatfield Work Phone: Tonsillectomy and adenoidectomy DOMONIQUE HATFIELD Total colonoscopy Domonique Bobo ht Work Phone: Plan of Treatment Date Care Activity Detail Author Start: 01-26-2024 End: 01-26-2024 Patient encounter procedure 01/26/2024 10:00 AM EST Office Visit [facility] [address] [facility] [address] [place] [address] Zak Hancock, DO [address] [facility] [address] [place], [place] [id number] [facility] Start: 04-21-2023 FUV, Provider: Zak Nguyen, Status: Sourav, Time: 10:20 AM FUV, Provider: Zak Nguyen, Status: Pen, Time: 10:20 AM [facility] 600 DO Work Phone: Start: 07-01-2022 Thyroid stimulating hormone measurement TSH Level [facility] Start: 06-19-2022 FUV, Provider: Zak Nguyen, Status: Sourav, Time: 10:10 AM FUV, Provider: Zak Nguyen, Status: Sourav, Time: 10:10 AM [facility] 250 DO Work Phone: Start: 01-19-2022 FUV, Provider: Zak Nguyen, Status: Pen, Time: 10:40 AM FUV, Provider: Zak Nguyen, Status: Pen, Time: 10:40 AM -[facility] 600 DO Work Phone: Start: 12-05-2021 FUV, Provider: Zak Nguyen, Status: Pen, Time: 10:20 AM FUV, Provider: Zak Nguyen, Status: Pen, Time: 10:20 AM [facility] 600 DO Work Phone: Start: 10-28-2021 HOLTER 48, Provider: SHAUN TADEO STEEL PAN FORM PLACING SUPERVISOR 1,[id number], Status: Pen, Time: 1:00 PM HOLTER 48, Provider: SHAUN TADEO STEEL PAN FORM PLACING SUPERVISOR 1,[id number], Status: Pen, Time: 1:00 PM -[facility] 600 DO Work Phone: Start: 10-01-2021 Hemoglobin A1c measurement Diabetes: Hemoglobin A1C [facility] Start: 08-27-2021 FUV, Provider: Zak Nguyen, Status: Pen, Time: 9:20 AM FUV, Provider: Zak Nguyen, Status: Pen, Time: 9:20 AM -[facility] 250 DO Work Phone: Start: 08-13-2021 FUV, Provider: Zak Nguyen, Status: Pen, Time: 9:15 AM FUV, Provider: Zak Nguyen, Status: Pen, Time: 9:15 AM -[facility] 250 DO Work Phone: Start: 11-15-2020 Screening for malignant neoplasm of breast Mammogram [facility] Start: 11-09-2019 Pneumococcal Vaccine: 65+ Years (2 - PCV) Pneumococcal Vaccine: 65+ Years (2 - PCV) [facility] Start: 1998 Zoster Vaccines (1 of 2) Zoster Vaccines (1 of 2) [facility] Start: 1970 DTaP/Tdap/Td Vaccines (1 - Tdap) DTaP/Tdap/Td Vaccines (1 - Tdap) [facility] Start: 1966 Hepatitis C screening Hepatitis C Screening [facility] Start: 1958 Diabetic foot examination Diabetes: Foot Exam [facility] Start: 1958 Glaucoma screening Diabetes: Retinopathy Screening [facility] Start: 1948 Cyanocobalamin vitamin b-12 Vitamin B-12 [facility] Start: 1948 Diabetes: Celiac Disease Screening Diabetes: Celiac Disease Screening [facility] Start: 1948 Lipid panel Lipid Panel [facility] Start: 1948 Medicare Annual Wellness Visit Medicare Annual Wellness Visit (AWV) [facility] Start: 1948 Screening for malignant neoplasm of colon [facility] Start: 1948 Screening for osteoporosis Bone Density Scan [facility] Immunizations Immunization Date Immunization Notes Care Provider [facility] 12-23-2023 influenza, high dose seasonal, preservative-free; Translations: [Fluzone High Dose Vaccine] Denia Rowell [facility] 12-21-2022 influenza, high dose seasonal, preservative-free Denia Rowell [facility] 01-17-2021 Pfizer-BioNTech COVID-19 Vacc 30 MCG/0.3ML Intramuscular Suspension Domonique Hatfield Work Phone: [facility] 01-14-2021 influenza virus vaccine, unspecified formulation Dewayne Richey [facility] 01-14-2021 Seasonal, quadrivale nt, recombinant, injectable influenza vaccine, preservative free Domonique Hatfield Work Phone: [facility] 250 DO Work Phone: 04-22-2020 Pfizer-BioNTech COVID-19 Vacc 30 MCG/0.3ML Intramuscular Suspension Domonique Hatfield Work Phone: [facility] Comment on above: Result Comment: 2022: TPV70 04-01-2020 Pfizer-BioNTUpstream [employer] COVID-19 Vacc 30 MCG/0.3ML Intramuscular Suspension Domonique Hatfield Work Phone: [facility] Comment on above: Result Comment: 2022: TPV70 11-27-2019 Flu vaccine, quadrivalent, high-dose, preservative free, age 65y+ (FLUZONE) 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 Work Phone: [facility] Work Phone: 11-27-2019 influenza virus vaccine, unspecified formulation Dewayne Mat [facility] 11-25-2019 influenza, high dose seasonal, preservative-free Domonique Hatfield Work Phone: [facility] 04-20-2019 KENALOG - 10 mg Oxana Br eault Other [employer] Other 04-20-2019 Toradol per 15 mg Oxana Matteo Other [employer] Other 12-05-2018 KENALOG - 10 mg Oxana [place] e[place] Other [employer] Other 11-08-2018 pneumococcal polysaccharide vaccine, 23 valent Domonique Hatfield Work Phone: [facility] 01-09-2018 Toradol per 15 mg Oxana Matteo Other [employer] Other Payers Date Payer Category Payer Medicare [employer]ICARE [employer] MEDICARE [id number] 2022-Present [address] [place] [address] [id number] 1959 Medicare [id number] 1959 Private Health Insurance [id number] 1948 Unknown [id number] 2.16.840.1.726913.3.579.2. 903 1948 Unknown [id number] 2.16.840.1.005328.3.579.2. 356 1948 Unknown [id number] 2.16.840.1.008682.3.579.2. 356 1948 Unknown [id number] 2.16.840.1.002605.3.579.2. 356 1948 Unknown [id number] 2.16.840.1.807456.3.579.2. 356 1948 Unknown [id number] 2.16.840.1.601807.3.579.2. 356 1948 Unknown [id number] 2.16.840.1.746189.3.579.2. 356 1948 Unknown [id number] 2.16.840.1.899624.3.579.2. 356 1948 Unknown [id number] 2.16.840.1.019051.3.579.2. 356 1948 Unknown [id number] 2.16.840.1.974616.3.579.2. 356 1948 Unknown [id number] 2.16.840.1.165296.3.579.2. 593 1948 Unknown [id number] 2.16.840.1.063877.3.579.2. 593 1948 Unknown [id number] 2.16.840.1.211434.3.579.2. 593 1948 Unknown [id number] 2.16.840.1.549943.3.579.2. 593 1948 Unknown [id number] 2.16.840.1.269904.3.579.2. 593 1948 Unknown [id number] 2.16.840.1.202475.3.579.2. 593 1948 Unknown [id number] 2.16.840.1.338434.3.579.2. 593 1948 Unknown [id number] 2.16.840.1.797679.3.579.2. 593 1948 Unknown [id number] 2.16.840.1.043800.3.579.2. 1244 1948 Unknown [id number] 2.16.840.1.073024.3.579.2 72 1948 Unknown [id number] 2.16.840.1.632782.3.579.2. 72 1948 Unknown [id number] 2.16.840.1.191307.3.579.2 72 1948 Unknown [id number] 2.16.840.1.040082.3.579.2 72 1948 Unknown [id number] 2.16.840.1.638250.3.579.2 72 1948 Unknown [id number] 2.16.840.1.059096.3.579.2. 72 1948 Unknown [id number] 2.16.840.1.706208.3.579.2 72 1948 Unknown [id number] 2.16.840.1.641611.3.579.2. 72 1948 Unknown [id number] 2.16.840.1.520601.3.579.2 72 1948 Unknown [id number] 2.16.840.1.005831.3.579.2. 72 1948 Unknown [id number] 2.16.840.1.316545.3.579.2 1948 Unknown [id number] 2.16.840.1.644832.3.579.2 1948 Unknown [id number] 2.16.840.1.723812.3.579.2 1948 Unknown [id number] 2.16.840.1.241810.3.579.2 1948 Unknown [id number] 2.16.840.1.678409.3.579.2 1948 Unknown [id number] 2.16.840.1.343574.3.579. 1948 Unknown [id number] 2.16.840.1.135381.3.579. 1948 Unknown [id number] 2.16.840.1.758497.3.579. 1948 Unknown [id number] 2.16.840.1.043652.3.579.2 1948 Unknown [id number] 2.16.840.1.708891.3.579.2 1948 Unknown [id number] 2.16.840.1.160918.3.579.2 1948 Unknown [id number] 2.16.840.1.668861.3.579.2 1948 Unknown [id number] 2.16.840.1.346116.3.579.2 1948 Unknown [id number] 2.16.840.1.575583.3.579.2 1948 Unknown [id number] 2.16.840.1.873342.3.579.2 1948 Unknown [id number] 2.16.840.1.491018.3.579.2 1948 Unknown [id number] 2.16.840.1.389999.3.579.2. 1948 Unknown [id number] 2.16.840.1.915451.3.579.2. 1948 Unknown [id number] 2.16.840.1.276770.3.579.2. 1948 Unknown [id number] 2.16.840.1.666822.3.579.2. 1948 Unknown [id number] 2.16.840.1.611188.3.579.2. 1948 Unknown [id number] 2.16.840.1.544531.3.579.2 1948 Unknown [id number] 2.16.840.1.441831.3.579.2. 1948 Unknown [id number] 2.16.840.1.540281.3.579.2 1948 Unknown [id number] 2.16.840.1.630324.3.579.2 1948 Unknown [id number] 2.16.840.1.885220.3.579.2 1948 Unknown [id number] 2.16.840.1.128471.3.579.2 Medicare [id number] 2.16.840.1.752122.19 Medicare [id number] 2.16.840.1.661141.19 Private Health Insurance [employer] MCR PFFS M [id number] Self-pay Self Pay [id number] Unknown Unknown Brady BC/BS [id number] Social History Date Type Detail Facility Start: 06-19-2022 End: 04-29-2023 Caffeine use Caffeine use [facility] Comment on above: Occas coffee; Start: 06-19-2022 End: 04-29-2023 Sex Assigned At [facility] Start: 07-07-2022 End: 12-23-2023 Tobacco smoking status Never smoked tobacco (finding) [facility] Comment on above: never a smoker denies use. Tobacco smoking status Never [facility] Comment on above: never a smoker Start: 04-29-2023 Tobacco use and exposure Smokeless tobacco non-user [facility] Work Phone: Start: 04-29-2023 Alcohol intake Lifetime non-d megan (finding) [facility] Work Phone: Start: 1950 Sex Assigned At Not on file U [facility] Work Phone: Start: 04-19-2023 End: 04-29-2023 Exposure to SARS-CoV-2 (event) Not sure [facility] Start: 1950 Sex Assigned At Female F [facility] Medical Equipment Procedure Code Equipment Code Equipment Origin al Text Equipment Identifier Dates Drug-eluting coronary artery stent, apm-sethyjmnbpflx-ic lymer-coated ()[id number] FDA Start: 11-27-2019 Functional Status Date Assessment Result Facility 07-22-2021 PHQ-9 [id number] Mild (5-9) [facility] DO Work Phone: Clinical Notes 11-18-2020 to 12-31-2023 Assessment & Plan Note - ANA Mac - 04/29/2023 2:24 PM EDTAssessment & Plan Note - ANA Mac - 04/29/2023 2:24 PM EDTPatient Instructions Note Date & Type Note Facility 12-31-2023 Note Nurse Consultation N ote Reason for Visit Pt presents today for lab draw Medications amlodipine, 5 mg, Oral, Daily aspirin 81 mg Oral EC Tab, 81 mg= 1 tab(s), Oral, Daily Freestyle Sam 2 Flash Glucose Monitoring 14 Day System (Sensor), See Instructions HumaLOG KwikPen 100 units/mL injectable solution, See Instructions Januvia 100 mg Tab, See Instructions Lantus Solostar Pen 100 units/mL subcutaneous solution, See Instructions latanoprost Opth 0.005% Gunjan, 1 drop(s) Lexapro 5 mg oral tablet, 5 mg= 1 tab(s), Oral, Daily losartan 100 mg Tab, See Instructions NitroStat 0.4 mg Tab, See Instructions Pen [place], See Instructions, 3 refills rosuvastatin 20 mg Tab, 20 mg= 1 tab(s), Oral, Daily traZODONE 50 mg Tab, See Instructions Allergies No Known Medication Allergies Immunizations Vaccine Date Status Comments influenza virus vaccine, inactivated 12/23/2023 Given influenza virus vaccine, inactivated 12/21/2022 Given SARS-CoV-2 (COVID-19) mRNA BNT-162b2 vax 01/17/2021 Recorded influenza virus vaccine, inactivated 01/14/2021 Recorded SARS-CoV-2 (COVID-19) mRNA BNT-162b2 vax 04/22/2020 Recorded 2022-09-24: TPV70 SARS-CoV-2 (COVID-19) mRNA BNT-162b2 vax 04/01/2020 Recorded 2022-09-24: TPV70 influenza virus vaccine, inactivated 11/27/2019 Recorded pneumococcal 23-valent vaccine 11/08/2018 Recorded [facility] 12-23-2023 Note Patient Education Correction Insulin Correction insulin, also called a supplemental dose, is a small amount of insulin that can be used to lower your blood sugar (glucose) if it is too high. This dose brings your glucose level back to the target range. You will be instructed to check your glucose at certain times of the day and to use correction insulin as needed to lower your blood glucose. Correction insulin is primarily used as part of diabetes management. It may also be prescribed for people who do not have diabetes. What is a correction scale? A correction scale, also called a supplemental dose, is prescribed by your health care provider to help you determine when you need correction insulin. Your correction scale is based on your individual treatment goals, and it has two parts: ??? Ranges of blood glucose levels. ??? How much correction insulin to give yourself if your blood sugar is not in your desired range. If your blood glucose is in your desired range, you will not need correction insulin. What type of insulin do I need? You may be prescribed rapid-acting or short-acting insulin as correction insulin. Talk with your health care provider or pharmacist about which type of correction insulin to take and when to take it. Rapid-acting insulin This insulin: ??? Starts working in the body (onset) in as little as 15 minutes. ??? Is at its highest strength (peak) in 1?2 hours. ??? Lasts (duration) for 2?4 hours. Short-acting insulin This insulin: ??? Onset is in about 30 minutes. ??? Peak is in 2?3 hours. ??? Duration lasts for 3?6 hours. How do I manage my blood glucose with correction insulin? Giving a correction dose ??? Check your blood glucose as directed by your health care provider. ??? Use your correction scale to find the range that your blood glucose is in. ??? Identify the units of insulin that match your blood glucose range. ??? Give yourself the dose of correction insulin that your health care provider has prescribed in your correction scale. Always make sure you are using the right type of insulin. Keeping a blood glucose log ??? Write down your blood glucose test results and the amount of insulin that you give yourself. Do this every time you check blood glucose or take insulin, even if it is in the correct range. Bring this log with you to your medical visits. This information will help your health care provider manage your medicines. ??? Note anything that may affect your blood glucose, such as: ? Changes in normal exercise or activity. ? Changes in your normal schedule, such as changes in your sleep routine, going on vacation, changing your diet, or holidays. ? New qzis-euu-nzhkjob or prescription medicines. ? Illness, stress, or anxiety. ? Changes in the time that you took your medicine or insulin. ? Changes in your meals, such as skipping a meal, having a late meal, or dining out. ? Eating things that may affect blood glucose, such as snacks, change in size of meal portions, drinks that contain sugar, or eating less than usual. Why do I need correction insulin if I do not have diabetes? If you do not have diabetes, your health care provider may prescribe insulin because: ??? Keeping your blood glucose in the target range is important for your overall health. ??? You are taking medicines that cause your blood glucose to be higher than normal. Contact a health care provider if: ??? You have high blood glucose that you are not able to correct with correction insulin. ??? You develop a low blood glucose that you are not able to treat yourself. ??? Your blood glucose is often too low. Get help right away if: ??? You become unresponsive. If this happens, someone else should call emergency services (911 in the [place] right away. ??? Your blood glucose is lower than 54 mg/dL (3.0 mmol/L). ??? You become confused or you have trouble thinking clearly. ??? You have difficulty breathing. These symptoms may represent a serious problem that is an emergency. Do not wait to see if the symptoms will go away. Get medical help right away. Call your local emergency services (911 in the [place] Do not drive yourself to the hospital. Summary ??? Correction insulin is primarily used in diabetes management. It can also be prescribed for people who do not have diabetes. ??? Correction insulin is a small amount of insulin that can be used to lower your blood glucose if it is too high. It brings your glucose level to the target range. ??? You will be instructed to check your blood glucose at certain times of the day and to use correction insulin as needed. Always keep a log of your blood glucose values and the amount of insulin you take. ??? Talk with your health care provider or pharmacist about the type of correction insulin to take and when to take it. This information is not intended to replace advice given to you by your he (more content not included)... [facility] 09-27-2023 Note Nurse Consultation N ote Physical Exam Vitals & Measurements T: 36.8 ?C(Temporal Artery) HR: 66(Peripheral) RR: 16 BP: 122/68 SpO2: 98% HT: 62 in HT: 158 cm WT: 77.8 kg WT: 171.16 lb BMI: 31.16 Assessment/Plan 1. Benign essential HTN (I10: Essential (primary) hypertension) 2. DM type 2 causing CKD stage 3 (E11.22: Type 2 diabetes mellitus with diabetic chronic kidney disease) 3. Hypercholesterolemia (E78.00: Pure hypercholesterolemia, unspecified) 4. Insomnia (G47.00: Insomnia, unspecified) 5. Adjustment disorder with disturbance of emotion (F43.29: Adjustment disorder with other symptoms) 6. GERD (gastroesophageal reflux disease) (K21.9: Gastro-esophageal reflux disease without esophagitis) 7. BMI 31.0-31.9,adult (Z68.31: Body mass index [BMI] 31.0-31.9, adult) 8. Class 1 obesity due to excess calories in adult (E66.09: Other obesity due to excess calories) 9. Nonsmoker (Z78.9: Other specified health status) Chronic kidney disease, stage 3 unspecified (N18.30: Chronic kidney disease, stage 3 unspecified) Medications amlodipine, 5 mg, Oral, Daily aspirin 81 mg Oral EC Tab, 81 mg= 1 tab(s), Oral, Daily Freestyle Sam 2 Flash Glucose Monitoring 14 Day System (Sensor), See Instructions HumaLOG KwikPen 100 units/mL injectable solution, See Instructions, 3 refills Januvia 100 mg Tab, See Instructions Lantus Solostar Pen 100 units/mL subcutaneous solution, 15 unit(s), SubCutaneous, Once a day (at bedtime), 3 refills latanoprost Opth 0.005% Gunjan, 1 drop(s) Lexapro 5 mg oral tablet, 5 mg= 1 tab(s), Oral, Daily losartan 100 mg Tab, See Instructions NitroStat 0.4 mg Tab, See Instructions [place], See Instructions, 3 refills [place], See Instructions, 1 refills rosuvastatin 20 mg Tab, 20 mg= 1 tab(s), Oral, Daily traZODONE 50 mg Tab, See Instructions Allergies No Known Medication Allergies Immunizations Vaccine Date Status Comments influenza virus vaccine, inactivated 12/21/2022 Given SARS-CoV-2 (COVID-19) mRNA BNT-162b2 vax 01/17/2021 Recorded influenza virus vaccine, inactivated 01/14/2021 Recorded SARS-CoV-2 (COVID-19) mRNA BNT-162b2 vax 04/22/2020 Recorded 2022-09-24: TPV70 SARS-CoV-2 (COVID-19) mRNA BNT-162b2 vax 04/01/2020 Recorded 2022-09-24: TPV70 influenza virus vaccine, inactivated 11/27/2019 Recorded pneumococcal 23-valent vaccine 11/08/2018 Recorded [facility] 09-27-2023 Note Patient Education Cardiovascular Hypertension, Adult High blood pressure (hypertension) is when the force of blood pumping through the arteries is too strong. The arteries are the blood vessels that carry blood from the heart throughout the body. Hypertension forces the heart to work harder to pump blood and may cause arteries to become narrow or stiff. Untreated or uncontrolled hypertension can lead to a heart attack, heart failure, a stroke, kidney disease, and other problems. A blood pressure reading consists of a higher number over a lower number. Ideally, your blood pressure should be below 120/80. The first ( top ) number is called the systolic pressure. It is a measure of the pressure in your arteries as your heart beats. The second ( bottom ) number is called the diastolic pressure. It is a measure of the pressure in your arteries as the heart relaxes. What are the causes? The exact cause of this condition is not known. There are some conditions that result in high blood pressure. What increases the risk? Certain factors may make you more likely to develop high blood pressure. Some of these risk factors are under your control, including: ? Smoking. ? Not getting enough exercise or physical activity. ? Being overweight. ? Having too much fat, sugar, calories, or salt (sodium) in your diet. ? Drinking too much alcohol. Other risk factors include: ? Having a personal history of heart disease, diabetes, high cholesterol, or kidney disease. ? Stress. ? Having a family history of high blood pressure and high cholesterol. ? Having obstructive sleep apnea. ? Age. The risk increases with age. What are the signs or symptoms? High blood pressure may not cause symptoms. Very high blood pressure (hypertensive crisis) may cause: ? Headache. ? Fast or irregular heartbeats (palpitations). ? Shortness of breath. ? Nosebleed. ? Nausea and vomiting. ? Vision changes. ? Severe chest pain, dizziness, and seizures. How is this diagnosed? This condition is diagnosed by measuring your blood pressure while you are seated, with your arm resting on a flat surface, your legs uncrossed, and your feet flat on the floor. The cuff of the blood pressure monitor will be placed directly against the skin of your upper arm at the level of your heart. Blood pressure should be measured at least twice using the same arm. Certain conditions can cause a difference in blood pressure between your right and left arms. If you have a high blood pressure reading during one visit or you have normal blood pressure with other risk factors, you may be asked to: ? Return on a different day to have your blood pressure checked again. ? Monitor your blood pressure at home for 1 week or longer. If you are diagnosed with hypertension, you may have other blood or imaging tests to help your health care provider understand your overall risk for other conditions. How is this treated? This condition is treated by making healthy lifestyle changes, such as eating healthy foods, exercising more, and reducing your alcohol intake. You may be referred for counseling on a healthy diet and physical activity. Your health care provider may prescribe medicine if lifestyle changes are not enough to get your blood pressure under control and if: ? Your systolic blood pressure is above 130. ? Your diastolic blood pressure is above 80. Your personal target blood pressure may vary depending on your medical conditions, your age, and other factors. Follow these instructions at home: Eating and drinking ? Eat a diet that is high in fiber and potassium, and low in sodium, added sugar, and fat. An example of this eating plan is called the DASH diet. DASH stands for Dietary Approaches to Stop Hypertension. To eat this way: ? Eat plenty of fresh fruits and vegetables. Try to fill one half of your plate at each meal with fruits and vegetables. ? Eat whole grains, such as whole-wheat pasta, brown rice, or whole-grain bread. Fill about one fourth of your plate with whole grains. ? Eat or drink low-fat dairy products, such as skim milk or low-fat yogurt. ? Avoid fatty cuts of meat, processed or cured meats, and poultry with skin. Fill about one fourth of your plate with lean proteins, such as fish, chicken without skin, beans, eggs, or tofu. ? Avoid pre-made and processed foods. These tend to be higher in sodium, added sugar, and fat. ? Reduce your daily sodium intake. Many people with hypertension should eat less than 1,500 mg of sodium a day. ? Do not drink alcohol if: ? Your health care provider tells you not to drink. ? You are , may be , or are planning to become . ? If you drink alcohol: ? Limit how much you have to: ? 0?1 drink a day for women. ? 0?2 drinks a day for men. ? Know how much alcohol is in your drink. In the [place] one drink equals one 12 oz bottle of beer (355 mL), one 5 oz glass of wine (148 mL), (more content not included)... [facility] 04-29-2023 Evaluation + Plan note Associated Problem(s): BMI 32.0-32.9,adult She is actively making lifestyle changes Weight is down 11 pounds Encouraged to continue [facility] Work Phone: 04-29-2023 Evaluation + Plan note Associated Problem(s): Diabetes (CMS/[facility]) Maintained on ARB/statin Reports most recent hemoglobin A1c 6.4 [facility] Work Phone: 04-29-2023 Evaluation + Plan note Associated Problem(s): PVC's (premature ventricular contractions) CAD was initially identified during workup for PVC burden. February 2022 Holter 8.4% PVC burden Denies dizziness lightheadedness, no prior syncope. [facility] Work Phone: 04-29-2023 Miscellaneous Notes Associated Problem(s): BMI 32.0-32.9,adult She is actively making lifestyle changes Weight is down 11 pounds Encouraged to continue Associated Problem(s): Diabetes (CMS/HCC) Maintained on ARB/statin Reports most recent hemoglobin A1c 6.4 Associated Problem(s): PVC's (premature ventricular contractions) CAD was initially identified during workup for PVC burden. February 2022 Holter 8.4% PVC burden Denies dizziness lightheadedness, no prior syncope. Associated Problem(s): Hyperlipidemia High intensity statin Annual labs through PCP Associated Problem(s): Coronary artery disease involving [place] coronary artery of [place] heart without angina pectoris No ACS admit or acute [place]. CAD was identified on testing for high PVC burden. November 2019 mLAD PCI/Mauro 2.5/22mm (+IFR) Circumflex negative RCA negative LVEF 65% May 2021 MPI no ischemia Associated Problem(s): Benign essential hypertension Optimal in office documented in this encounter [facility] Work Phone: 04-29-2023 Evaluation + Plan note Associated Problem(s): Hyperlipidemia High intensity statin Annual labs through PCP [facility] Work Phone: 04-29-2023 Evaluation + Plan note Associated Problem(s): Coronary artery disease involving [place] coronary artery of [place] heart without angina pectoris No ACS admit or acute [place]. CAD was identified on testing for high PVC burden. November 2019 mLAD PCI/Mauro 2.5/22mm (+IFR) Circumflex negative RCA negative LVEF 65% May 2021 MPI no ischemia [facility] Work Phone: 04-29-2023 Evaluation + Plan note Associated Problem(s): Benign essential hypertension Optimal in office [facility] Work Phone: 04-29-2023 History of Present illness Narrative Chief Complaint Doing okay Reason [...] Optimal in office Coronary artery disease involving [place] coronary artery of [place] heart without angina pectoris No ACS admit or acute [place]. CAD was identified on testing for high PVC burden. November 2019 mLAD PCI/Mauro 2.5/22mm (+IFR) Circumflex negative RCA negative LVEF 65% May 2021 MPI no ischemia Hyperlipidemia High intensity statin Annual labs through PCP PVC's (premature ventricular contractions) CAD was initially identified during workup for PVC burden. February 2022 Holter 8.4% PVC burden Denies dizziness lightheadedness, no prior syncope. Diabetes ([facility]) Maintained on ARB/statin Reports most recent hemoglobin [...] if new symptoms arise. Gary Chávez MSN, BRYANT-YANY, PMHNP-[facility] Please excuse any errors in grammar or translation related to this dictation. Voice recognition software was utilized to prepare this document. documented in this encounter [facility] Work Phone: 04-29-2023 Instructions ANA Mac - [...] new symptoms arise. documented in this encounter [facility] Work Phone: 03-02-2023 Evaluation note Encounter Date [...] diet and to monitor BP at home [facility] Other [id number] Evaluation note* Encounter Date Diagnosis Assessment Notes [...] dose of amlodipine 5 mg p.o. daily [facility] Other 04-18-2023 NotePROCEDURE: US KIDNEYS DATE: 05/26/2022 [...] Electronically authenticated by: RADHA OGLESBY Date: 2022-05-26 12:07[facility]03-15-2023 Evaluation note* Encounter Date Diagnosis Assessment [...] 10 mg if blood pressure remains uncontrolled [facility] Other 10-11-2021 Evaluation note* Encounter Date Diagnosis Assessment Notes Treatment Notes Treatment Clinical Notes Nov, Injury of back, initial encounter (ICD-10 - S39.92XA) patient is in so much pain she is unable to speak and breath; patient is tearful and states pain is intolerable. Recommend ER due to level of discomfort at this time. [facility] Other Evaluation + Plan note Future Appointments Appointment Date:10/05/2022 04:40:00 PM Scheduled Provider:Dewayne Richey MD Location:[facility] [place] [facility]ments Appointment Date:12/29/2022 11:00:00 AM Scheduled Provider: Location:[facility] Appointment Type: Medicare Wellness Subsequent Appointment Date:04/05/2023 10:00:00 AM Scheduled Provider:Dewayne Richey MD Location:[facility] Appointment Type: Open Diagnostic Tests Pending * CBC w/ Auto Diff 10/05/22 * Comprehensive Metabolic Panel 10/05/22 * Lipid Panel 10/05/22 * HgbA1c 10/05/22 * Microalbumin Level Urine 10/05/22 * U Protein/Creat Ratio [facility]05[facility]ments Appointment Date:12/29/2022 10:00:00 AM Scheduled Provider:Denia Ding Location:[facility] Appointment Type:BH Therapy 60 Appointment Date:04/05/2023 10:00:00 AM Scheduled Provider:Dewayne Richey MD Location:[facility] Appointment Type: Open Appointment Date:12/22/2023 11:00:00 AM Scheduled Provider: Location:[facility] Appointment Type: Medicare Wellness Subsequent [facility] Behavior[facility] Health evaluation + Plan note Future Appointments Appointment Date:01/05/2023 10:00:00 AM Scheduled Provider:Denia Ding Location:[facility] Appointment Type:BH Therapy 60 Appointment Date:04/05/2023 10:00:00 AM Scheduled Provider:Dewayne Richey MD Location:[facility] Appointment Type:FM Open Appointment Date:12/22/2023 11:00:00 AM Scheduled Provider: Location:[facility] Appointment Type:FM Medicare Wellness Subsequent [facility] Behavioral Health evaluation + Plan note Future Appointments Appointment Date:01/12/2023 10:00:00 AM Scheduled Provider:Denia Ding Location:[facility] Appointment Type:BH Therapy 60 Appointment Date:04/05/2023 10:00:00 AM Scheduled Provider:Dewayne Richey MD Location:[facility] Appointment Type:FM Open Appointment Date:12/22/2023 11:00:00 AM Scheduled Provider: Location:[facility] Appointment Type: Medicare Wellness [facility] Behavioral Health evaluation + Plan note Future Appointments Appointment Date:01/19/2023 01:00:00 PM Scheduled Provider:Denia Dnig Location:[facility] Appointment Type:BH Therapy 60 Appointment Date:04/05/2023 10:00:00 AM Scheduled Provider:Dewayne Richey MD Location:[facility] Appointment Type: Open Appointment Date:12/22/2023 11:00:00 AM Scheduled Provider: Location:[facility] Appointment Type: Medicare Wellness [facility] Behavioral Health evaluation + Plan note Future Appointments Appointment Date:02/09/2023 11:00:00 AM Scheduled Provider:Denia Ding Location:[facility] Appointment Type:BH Therapy 60 Appointment Date:03/30/2023 10:00:00 AM Scheduled Provider:Dewayne Richey MD Location:[facility] Appointment Type: Open Appointment Date:12/22/2023 11:00:00 AM Scheduled Provider: Location:[facility] Appointment Type: Medicare Wellness [facility] Behavioral Health evaluation + Plan note Future Appointments Appointment Date:02/16/2023 10:00:00 AM Scheduled Provider:Denia Ding Location:[facility] Appointment Type:BH Therapy 60 Appointment Date:03/30/2023 10:00:00 AM Scheduled Provider:Dewayne Richey MD Location:[facility] Appointment Type:FM Open Appointment Date:12/22/2023 11:00:00 AM Scheduled Provider: Location:[facility] Appointment Type: Medicare Wellness [facility] Behavioral Health evaluation + Plan note Future Appointments Appointment Date:02/23/2023 02:00:00 PM Scheduled Provider:Denia Ding Location:[facility] Appointment Type:BH Therapy 60 Appointment Date:03/30/2023 10:00:00 AM Scheduled Provider:Dewayne Richey MD Location:[facility] Appointment Type:FM Open Appointment Date:12/22/2023 11:00:00 AM Scheduled Provider: Location:[facility] Appointment Type:FM Medicare Wellness Subsequent [facility] Behavioral Health evaluation + Plan note Future Appointments Appointment Date:03/09/2023 11:00:00 AM Scheduled Provider:Denia Ding Location:[facility] Appointment Type:BH Therapy 60 Appointment Date:03/30/2023 10:00:00 AM Scheduled Provider:Dewayne Richey MD Location:[facility] Appointment Type: Open Appointment Date:12/22/2023 11:00:00 AM Scheduled Provider: Location:[facility] Appointment Type: Medicare Wellness [facility] Behavioral Health evaluation + Plan note Future Appointments Appointment Date:03/23/2023 10:00:00 AM Scheduled Provider:Denia Ding Location:[facility] Appointment Type:BH Therapy 60 Appointment Date:03/30/2023 10:00:00 AM Scheduled Provider:Dewayne Richey MD Location:[facility] Appointment Type:FM Open Appointment Date:12/23/2023 09:30:00 AM Scheduled Provider: Location:[facility] Appointment Type:FM Medicare Wellness Subsequent [facility] Behavioral Health evaluation + Plan note Future Appointments Appointment Date:04/13/2023 09:00:00 AM Scheduled Provider:Denia Ding Location:[facility] Appointment Type:BH Therapy 60 Appointment Date:06/29/2023 10:00:00 AM Scheduled Provider:Dewayne Richey MD Location:[facility] Appointment Type:FM Open Appointment Date:12/23/2023 09:30:00 AM Scheduled Provider: Location:[facility] Appointment Type:FM Medicare Wellness Subsequent [facility] Behavioral Health evaluation + Plan note Future Appointments Appointment Date:05/12/2023 12:00:00 PM Scheduled Provider:Denia Ding Location:[facility] Appointment Type:BH Therapy 60 Appointment Date:06/29/2023 10:00:00 AM Scheduled Provider:Dewayne Richey MD Location:[facility] Appointment Type:FM Open Appointment Date:12/23/2023 09:30:00 AM Scheduled Provider: Location:[facility] Appointment Type: Medicare Wellness [facility] Behavioral Health evaluation + Plan note Future Appointments Appointment Date:06/09/2023 05:00:00 PM Scheduled Provider:Denia Ding Location:[facility] Appointment Type:BH Therapy 60 Appointment Date:06/29/2023 10:00:00 AM Scheduled Provider:Dewayne Richey MD Location:[facility] Appointment Type:FM Open Appointment Date:12/23/2023 09:30:00 AM Scheduled Provider: Location:[facility] Appointment Type: Medicare Wellness [facility] Behavioral Health evaluation + Plan note Future Appointments Appointment Date:06/29/2023 10:00:00 AM Scheduled Provider:Dewayne Richey MD Location:[facility] Appointment Type:FM Open Appointment Date:12/23/2023 09:30:00 AM Scheduled Provider: Location:[facility] Appointment Type: Medicare Wellness [facility] Behavioral Health evaluation + Plan note Future Appointments Appointment Date:09/15/2023 10:00:00 AM Scheduled Provider:Denia Ding Location:[facility] Appointment Type:BH Therapy 60 Appointment Date:09/28/2023 10:00:00 AM Scheduled Provider:Dewayne Richey MD Location:[facility] Appointment Type:FM Open Appointment Date:09/29/2023 10:00:00 AM Scheduled Provider:Denia Ding Location:[facility] [place] Appointment Type:BH Therapy 60 Appointment Date:10/13/2023 10:00:00 AM Scheduled Provider:Denia Ding Location:[facility] [place] Appointment Type:BH Therapy 60 Appointment Date:12/23/2023 01:00:00 PM Scheduled Provider: Location:[facility] Appointment Type:FM Medicare Wellness Subsequent [facility] Behavioral Health evaluation + Plan note Future Appointments Appointment Date:09/28/2023 10:00:00 AM Scheduled Provider:Dewayne Richey MD Location:[facility] Appointment Type: Open Appointment Date:09/29/2023 10:00:00 AM Scheduled Provider:Denia Ding Location:[facility] [place] Appointment Type:BH Therapy 60 Appointment Date:10/13/2023 10:00:00 AM Scheduled Provider:Denia Ding Location:[facility] [place] Appointment Type:BH Therapy 60 Appointment Date:12/23/2023 01:00:00 PM Scheduled Provider: Location:[facility] Appointment Type:FM Medicare Wellness Subsequent [facility] Behavioral Health evaluation + Plan note Future Appointments Appointment Date:09/29/2023 10:00:00 AM Scheduled Provider:Denia Ding Location:[facility] [place] Appointment Type:BH Therapy 60 Appointment Date:10/13/2023 10:00:00 AM Scheduled Provider:Denia Ding Location:[facility] [place] Appointment Type:BH Therapy 60 Appointment Date:12/23/2023 01:00:00 PM Scheduled Provider: Location[facility] Appointment Type:FM Medicare Wellness Subsequent Appointment Date:03/27/2024 10:00:00 AM Scheduled Provider:Dewayne Richey MD Location:[facility] Appointment Type: Open [facility] Evaluation + Plan note Future Appointments Appointment Date:10/13/2023 10:00:00 AM Scheduled Provider:Denia Ding Location:[facility] Appointment Type:BH Therapy 60 Appointment Date:12/23/2023 01:00:00 PM Scheduled Provider: Location:[facility] Appointment Type: Medicare Wellness Subsequent Appointment Date:03/27/2024 10:00:00 AM Scheduled Provider:Dewayne Richey MD Location:[facility] Appointment Type:[facility] evaluation + Plan note Future Appointments Appointment Date:11/10/2023 10:00:00 AM Scheduled Provider:Denia Ding Location:[facility] Appointment Type:BH Therapy 60 Appointment Date:12/23/2023 01:00:00 PM Scheduled Provider: Location:[facility] Appointment Type: Medicare Wellness Subsequent Appointment Date:03/27/2024 10:00:00 AM Scheduled Provider:Dewayne Richey MD Location:[facility] Appointment Type:[facility] evaluation + Plan note Future Appointments Appointment Date:11/24/2023 10:00:00 AM Scheduled Provider:Denia Ding Location:[facility] Appointment Type:BH Therapy 60 Appointment Date:12/23/2023 01:00:00 PM Scheduled Provider: Location:[facility] Appointment Type: Medicare Wellness Subsequent Appointment Date:03/27/2024 10:00:00 AM Scheduled Provider:Dewayne Richey MD Location:[facility] Appointment Type:[facility] evaluation + Plan note Future Appointments Appointment Date:12/08/2023 10:00:00 AM Scheduled Provider:Denia Ding Location:[facility] Appointment Type:BH Therapy 60 Appointment Date:12/23/2023 01:00:00 PM Scheduled Provider: Location:[facility] Appointment Type: Medicare Wellness Subsequent Appointment Date:03/27/2024 10:00:00 AM Scheduled Provider:Dewayne Richey MD Location:[facility] Appointment Type:[facility] evaluation + Plan note Future Appointments Appointment Date:12/23/2023 01:00:00 PM Scheduled Provider: Location:[facility] Appointment Type: Medicare Wellness Subsequent Appointment Date:12/28/2023 10:00:00 AM Scheduled Provider:Denia Ding Location:[facility] Appointment Type:BH Therapy 60 Appointment Date:03/27/2024 10:00:00 AM Scheduled Provider:Dewayne Richey MD Location:[facility] Appointment Type:[facility] evaluation + Plan note Future Appointments Appointment Date:12/31/2023 01:20:00 PM Scheduled Provider: Location:[facility] Appointment Type: Lab Draw Appointment Date:01/04/2024 10:00:00 AM Scheduled Provider:Denia Ding Location:[facility] Appointment Type:BH Therapy 60 Appointment Date:03/27/2024 10:00:00 AM Scheduled Provider:Dewayne Richey MD Location:[facility] Appointment Type: Open Appointment Date:12/25/2024 01:00:00 PM Scheduled Provider: Location:[facility] Appointment Type: Medicare Wellness Subsequent Future Scheduled Tests Laboratory* HgbA1c 12/23/23 * HCV Antibody RFX to Quant PCR 12/23/23 [facility] Behavioral Health evaluation + Plan note Future Appointments Appointment Date:01/04/2024 10:00:00 AM Scheduled Provider:Denia Ding Location:[facility] Appointment Type:BH Therapy 60 Appointment Date:03/27/2024 10:00:00 AM Scheduled Provider:Dewayne Richey MD Location:[facility] Appointment Type:FM Open Appointment Date:12/25/2024 01:00:00 PM Scheduled Provider: Location:[facility] Appointment Type:FM Medicare Wellness Subsequent Diagnostic Tests Pending * HCV Antibody RFX to Quant PCR 12/31/23 [facility] Evaluation noteNo InformationNort Unata Other Evaluation note* Diagnosis 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 Benign essential hypertension Essential hypertension, benign Mixed hyperlipidemia PVC's (premature ventricular contractions) Other premature beats 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) BMI 32.0-32.9,adult documented in this encounter [facility] Work Phone: Evaluation note* Diagnosis Onset Date Resolution Status Chronic kidney disease, stage 3b acute 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 acute Hypercalcemia acute Hyperlipemia acute Hypertensive nephropathy acu te Obesity acute [facility] Work Phone: Hiszrxa general Narrative - Reported* Type Description Date [...] History bladder sling Hospitalization History see above [facility] Other Hisbcry general Narrative - Reported* Type Description Date [...] see above Hospitalization History 4 CHILD BIRTHS [facility] Other History of Present illness Narrative* Patient [...] our next steps are going to be. -[facility] Work Phone: History of Present illness Narrative* [...] lipids also appear to be adequately addressed. [facility] 600 DO Work Phone: History of Present [...] the merits of diet and weight loss. [facility] 250 DO Work Phone: History of Present [...] to call if they arise or occur. [facility] 600 [facility] Work Phone: Hospital course Narrative No data available for this section [facility] No data available for this section [facility] No data available for this section [facility] (narrative)* Consultation (Routine) - Authorized Specialty Diagnoses / Procedures Referred By Fallon rios Referred To Contact Cardiology Diagnoses Coronary artery disease involving georgetown coronary artery of [place] heart without angina pectoris Procedures Follow Up In Cardiology Gary Chávez, BRYANT-ORDER CLERK [address] [facility] [address] [place] [address] Referral ID Status Reason Start Date Expiration Date V isits Requested Visits Authorized [id number] Authorized 04/29/2023 04/28/2024 1 1 [facility] Work Phone: Family History No Family History [...] of diabetes m ellitus: Sister(V18.0, Z83.3) Status:Active Relationship Condition Age at Onset Recorded Date/T erasto father Malignant neoplasm Unknown Heart disease Unknown Unknown Hypertension Unknown mother Hypertension Unknown son Hypertension Unknown Diabetes mellitus Unknown sister Diabetes mellitus Unknown Summary Purpose Advance Directives No Advanced Directives Records Found Advance Directive Response Recorded Date/ Time Advance Directives No April 19 4:20pm Chief Complaint NETTA EUNICE is being seen for an annual follow-up of [place] Abnormal Holter.NETTA DAWSON is being seen for Testing results.NETTA DAWSON is being seen for a 4-6 weeks week follow-up of.NETTA DAWSON is being seen for a 4-6 weeks week follow-up of.NETTA DAWSON is being seen for a 6 month follow-up of. Chief Complaint and Reason for Visit Chief Complaint RENAL 6 month f/u Reason for Visit Chronic kidney disea se, stage 3b Diabetic nephropathy associated with type 2 diabetes mellitus Hypercalcemia Hyperlipemia Hypertensive nephropathy Obesity Additional Source Comments INFORMATION SOURCE (unrecogn ized section and content) DATE CREATED AUTHOR 07/31/2021 [facility] DATE CREATED AUTHOR AUTHOR'S ORGANIZ ATION 06/21/2022 [facility] DATE CREATED AUTHOR AUTHOR'S ORGANIZ ATION 07/17/[address] [facility] pital DATE CREATED AUTHOR AUTHOR'S ORGANIZ ATION 12/25/2022 [facility] DATE CREATED AUTHOR AUTHOR'S ORGANIZ ATION 07/30/2023 [facility] DATE CREATED AUTHOR AUTHOR'S ORGANIZ ATION 09/29/2023 Peres Madera [facility] DATE CREATED AUTHOR AUTHOR'S ORGANIZ ATION 12/25/2023 Peres Guero [facility] DATE CREATED AUTHOR AUTHOR'S ORGANIZ ATION 01/03/2024 [facility] REASON FOR VISIT (unrecogniz ed section and content) Reason Comments Follow-up 9 months Patient Care team informatio n (unrecognized section and content) 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 Relationship Specialty Start Date End Date Domonique Hatfield MD [address] [place] [address] PCP - General 05/18/02 Team Status: Active Member Role Status Dates Domonique Hatfield MD Primary Care Provider Active Team Status: Active Member Role Status Dates Domonique Hatfield MD Primary Care Provider Active S tart: September 22, 2023 Ramsey Steward MD Attending Provider Active Star t: September 22, 2023 Team Status: Inactive Member Role Status Dates Domonique Hatfield MD Primary Care Provider Active S tart: September 28, 2023 End: September 28, 2023 Ramsey Steward MD Attending Provider Active Star t: September 28, 2023 End: September 28, 2023 Goals (unrecognized section and content) Goals may be documented in a n alternate section FOR RECORDS PERTAINING TO PATIENTS WHO ARE [...] BE BASED ON THE PRIMARY CLINICAL RECORDS. [facility] [employer] provides no warranty or guarantee of the accuracy or completeness of information in this document.
== END 2024-01-03 09:14 | disposition home or self-care (01) ==
LOC: MAMMO 09:13
PROVIDERS: PCP Family Medicine; Visit Provider Family Medicine
DX: Z12.31 Encounter for screening mammogram for malignant neoplasm of breast (principal)
CPT/HCPCS: 77063; 77067

== ENCOUNTER 2024-03-07 10:18 | Outpatient (OUT) | payer MEDICARE, SELFPAY ==
[2024-03-07 11:35] LABS: Alanine Aminotransferase 32 U/L (14-59); Albumin Globulin Ratio 1.1; Albumin Level 3.6 g/dL (3.4-5.0); Alkaline Phosphatase 75 U/L (46-116); Anion Gap 10.7; Aspartate Amino Transferase 24 U/L (15-37); BUN Creatinine Ratio 13.8; Bilirubin Total 0.3 mg/dL (0.2-1.0); Calcium 9.6 mg/dL (8.5-10.1); Chloride 103 mmol/L (98-107); Estimated GFR (African America 52 (>=60 mL/min/1.73m^2); Estimated GFR (Non-African Ame 43 (>=60 mL/min/1.73m^2); Globulin 3.4 g/dL; Phosphorus 2.6 mg/dL (2.6-4.7); Potassium 3.7 mmol/L (3.5-5.1); Sodium 139 mmol/L (136-145); Uric Acid 3.3 mg/dL (2.6-6.0)
[2024-03-07 11:41] LABS: Glucose 43 mg/dL (74-106)
== END 2024-03-07 10:19 | disposition home or self-care (01) ==
LOC: LAB 10:21
PROVIDERS: PCP Family Medicine; Visit Provider Internal Medicine Nephrology
DX: E10.21 Type 1 diabetes mellitus with diabetic nephropathy (principal); N18.32 Chronic kidney disease, stage 3b; E78.5 Hyperlipidemia, unspecified; I12.9 Hypertensive chronic kidney disease with stage 1 through stage 4 chronic kidney disease, or unspecified chronic kidney disease
CPT/HCPCS: 36415; 80053; 84100; 84550

== ENCOUNTER 2024-07-30 22:19 | Emergency (ER) | payer MEDICARE, SELFPAY ==
[2024-07-30] VITALS (11 sets, daily range): BP systolic 121–139; BP diastolic 50–77; PULSE 90–106; TEMP 36.5; O2SAT 95–100; BMI 29.6
--- OUTSIDE RECORDS SUMMARY | 2024-07-30 22:27 | XMS_ITS | Encounter Summary ---
Author Organization [facility] Address [address] [place] [address] Phone Care Team Providers Care Plug Paster Name Role Phone Darlene Hatfield MD Primary Care Provider [phone] Delmar Rivero MD Primary Care Provider [phone]- [phone] Encounter Details Date Type Department Care Team (Late st Contact Info) Description 11/10/2019 Orders Only [facility] [address] [place] [address] Conversion, Onbase Social History Tobacco Use Types Packs/Day Years Used Date Smoking Tobacco: Never Assessed Comments Unknown Sex and Gender Information Value Date Recorded Sex Assigned at Not on file Legal Sex Female 8:51 PM EST Gender Identity Not on file Sexual Orientation Not on file documented as of this encounter Plan of Treatment Upcoming Encounters Date Type Department Care Team (Late st Contact Info) Description 02/06/2025 3:10 PM EST Office Visit [facility] [address] [facility] [address] [place] [address] Zak Hancock DO [address] [facility] [address], [address] [place], [place] [id number] Scheduled Orders Name Type Priority Associated Diagnoses Orde r Schedule OUTSIDE LAB SCAN Lab Ordered: 11/10/2019 documented as of this encounter Visit Diagnoses Not on filedocumented in this encounter Care Teams Plug Paster Relationship Specialty Start Date End Date Darlene Hatfield MD [address] [place] [address] PCP - General 05/18/02 01/25/24 Delmar Rivero MD [facility] [facility] [place] [address] PCP - General Family Medicine 01/26/24 documented as of this encounter
--- OUTSIDE RECORDS SUMMARY | 2024-07-30 22:27 | XMS_ITS | Encounter Summary ---
Author Organization [facility] Address [address] [place] [address] Phone Care Team Providers Care Operations Representative Name Role Phone Darlene Hatfield MD Primary Care Provider [phone] Delmar Rivero MD Primary Care Provider [phone] Encounter Details Date Type Department Care Team (Late st Contact Info) Description 11/28/2019 Orders Only [facility] [address] [place] [address] Conversion, Onbase Social History Tobacco Use Types [...] Description 02/06/2025 3:10 PM EST Office Visit [facility] [address] [facility] [address] [place] [address] Zak Hancock DO [address] [facility] [address], [address] [place], [place] [phone] Scheduled Orders Name Type Priority Associated Diagnoses Orde r Schedule OUTSIDE LAB SCAN Lab Ordered: 11/28/2019 documented as of this encounter Visit Diagnoses Not on filedocumented in this encounter Care Teams Operations Representative Relationship Specialty Start Date End Date Darlene Hatfield MD [address] [place] [address] PCP - General 05/18/02 01/25/24 Delmar Rivero MD [facility] [place] [address] PCP - General Family Medicine 01/26/24 documented as of this encounter
--- OUTSIDE RECORDS SUMMARY | 2024-07-30 22:27 | XMS_ITS | Encounter Summary ---
Author Organization [facility] Address [address] [place] [address] Phone Care Team Providers Care Quantitative Research Analyst Name Role Phone Darlene Hatfield MD Primary Care Provider [phone] Delmar Rivero MD Primary Care Provider [phone] Encounter Details Date Type Department Care Team (Late st Contact Info) Description 09/22/2023 Scanned Document [facility] [address] [place] [id number] Scanning, Generic Provider Social History Tobacco Use Types Packs/Day Years Used Date Smoking Tobacco: Never Smokeless Tobacco: Never Alcohol Use Standard Drinks/Week Comments Never 0 (1 standard drink = 0.6 oz pur e alcohol) PHQ-2 Answer Date Recorded Patient Health Questionnaire-2 Score 2 06/19/2022 Comments Unknown Sex and Gender Information Value Date Recorded Sex Assigned at Not on file Legal Sex Female 8:51 PM EST Gender Identity Not on file Sexual Orientation Not on file documented as of this encounter Plan of Treatment Upcoming Encounters Date Type Department Care Team (Late st Contact Info) Description 02/06/2025 3:10 PM EST Office Visit [place] [id number] [facility] [address] [place] [address] Zak Hancock DO [address] [facility] [address], [address] [place] [address] documented as of this encounter Visit Diagnoses Not on filedocumented in this encounter Additional Health Concerns Assessment Noted Time PHQ-9 Depression Total Score: 7 06/20/19 23 10:14 AM EDT A fall risk assessment has been complete d for the patient 04/29/2023 1:41 PM EDT documented as of this encounter Care Teams Quantitative Research Analyst Relationship Specialty Start Date End Date Darlene Hatfield MD [address] [facility] [place] [address] PCP - General 05/18/02 01/25/24 Delmar Rivero MD [address] [facility] [place] [address] PCP - General Family Medicine 01/26/24 documented as of this encounter
--- OUTSIDE RECORDS SUMMARY | 2024-07-30 22:27 | XMS_ITS | Encounter Summary ---
Author Organization [facility] Address [address] [place] [address] Phone Care Team Providers Care General Car Supervisor Yard Name Role Phone Darlene Hatfield MD Primary Care Provider [phone] Delmar Rivero MD Primary Care Provider [phone] Encounter Details Date Type Department Care Team (Late st Contact Info) Description 05/09/2021 Orders Only [facility] [address] [place] [address] Conversion, Onbase Social History Tobacco Use Types [...] Description 02/06/2025 3:10 PM EST Office Visit [facility] [address] [facility] [address] [place] [address] Zak Hancock DO [address] [facility] [address], [address] [place] [address] Scheduled Orders Name Type Priority Associated Diagnoses Orde r Schedule OUTSIDE LAB SCAN Lab Ordered: 05/09/2021 documented as of this encounter Visit Diagnoses Not on filedocumented in this encounter Care Teams General Car Supervisor Yard Relationship Specialty Start Date End Date Darlene Hatfield MD [address] [place] [address] PCP - General 05/18/02 01/25/24 Delmar Rivero MD [address] [facility] [place] [address] PCP - General Family Medicine 01/26/24 documented as of this encounter
--- OUTSIDE RECORDS SUMMARY | 2024-07-30 22:27 | XMS_ITS | Clinical Summary ---
Author Organization [facility] tem Address [id number] [place] [address] Care Team Providers Care Manager Assisted Living Name Role Phone Unavailable Primary Care Provider Unavailabl e Immunizations Immunization Administration Dates Next Due COVID-19, mRNA, LNP-S, PF, 30mcg/0.3mL Dose 04/08,04/01/2020 Social History Tobacco Use Types Packs/Day Years Used Date Smoking Tobacco: Never Assessed Childcare Answer Date Recorded Childcare Unknown 11/30/2019 Employment Answer Date Recorded Employment Unknown 11/30/2019 Purpose - Life Answer Date Recorded Purpose and direction in life Unknown Comments Unknown Sex and Gender Information Value Date Recorded Sex Assigned at Not on file Legal Sex Female 11:38 AM EDT Gender Identity Not on file Sexual Orientation Not on file Plan of Treatment Health Maintenance Due Date Last Done Comments Depression Screening 1960 Tobacco Screening 1962 DTaP,Tdap and Td Vaccines (1 - Tdap) 06/23/1967 Zoster (Shingles) Vaccine (1 of 2) 1998 Fall Risk Screening 2013 COVID-19 Vaccine ( season) 2023, 04/01/2020 Influenza Vaccine 10/09/2024 11/27/2019 Medical Devices Not on file Insurance [employer] MEDICARE
--- OUTSIDE RECORDS SUMMARY | 2024-07-30 22:27 | XMS_ITS | Encounter Summary ---
Author Organization [facility] Address [address] [place] [address] Phone Care Team Providers Care Genetic Coordinator Name Role Phone Darlene Hatfield MD Primary Care Provider [phone] Delmar Rivero MD Primary Care Provider [phone] Encounter Details Date Type Department Care Team (Late st Contact Info) Description 01/07/2022 Orders Only [facility] [address] [place] [address] Conversion, Onbase Social History Tobacco Use Types Packs/Day Years Used Date Smoking Tobacco: Never Assessed PHQ-2 Answer Date Recorded Patient Health Questionnaire-2 Score 1 07/22/2021 Comments Unknown Sex and Gender Information Value Date Recorded Sex Assigned at Not on file Legal Sex Female 8:51 PM EST Gender Identity Not on file Sexual Orientation Not on file documented as of this encounter Plan of Treatment Upcoming Encounters Date Type Department Care Team (Late st Contact Info) Description 02/06/2025 3:10 PM EST Office Visit [facility] [address] [facility] [address] [place] [address] Zak Hancock DO [address] [facility] [address], [address] [place] [address] Scheduled Orders Name Type Priority Associated Diagnoses Orde r Schedule OUTSIDE LAB SCAN Lab Ordered: 01/07/2022 OUTSIDE LAB SCAN Lab Ordered: 01/07/2022 documented as of this encounter Visit Diagnoses Not on filedocumented in this encounter Additional Health Concerns Assessment Noted Time PHQ-9 Depression Total Score: 6 07/23/19 22 8:27 AM EDT documented as of this encounter Care Teams Genetic Coordinator Relationship Specialty Start Date End Date Darlene Hatfield MD [address] [place] [address] PCP - General 05/18/02 01/25/24 Delmar Rivero MD [address] [facility] [place] [address] PCP - General Family Medicine 01/26/24 documented as of this encounter
--- OUTSIDE RECORDS SUMMARY | 2024-07-30 22:27 | XMS_ITS | Clinical Summary ---
Author Organization [facility] Address [address] [place] [id number] Care Team Providers Care Operating Table Assembler Name Role Phone Darlene Hatfield MD Primary Care Provider [phone] Allergies No known active allergies Medications insulin lispro 100 unit/mL InPnIndications :type 2 diabetes mellitus Inject under the skin 3 (three) times a day Sliding Scale Reasons: type 2 diabetes mellitus. Active sitagliptin (JANUVIA) 100 MG tablet Take 100 mg by mouth daily . Active aspirin 81 MG EC tablet Take 81 mg by mouth daily . Active clopidogreL (PLAVIX) 75 mg tablet Take 75 mg by mouth daily . Active amitriptyline (ELAVIL) 25 MG tablet Take 25 mg by mouth nightly . Active rosuvastatin (CRESTOR) 20 MG tablet Take 20 mg by mouth nightly . Active losartan (COZAAR) 100 MG tablet Take 100 mg by mouth at bedtime . Active levomefolate-B2 -B6-B12 (l-methylfolate -b2-b6-b12) 6-5-50-1 mg TabIndications: vitamin deficiency prevention Take 1 tablet by mouth every morning Reasons: treatment to prevent vitamin deficiency. Active meclizine (ANTIVERT) 12.5 mg tablet Take 12.5 mg by mouth 3 (three) times a day as needed for dizziness . Active nitroGLYCERIN (NITROSTAT) 0.[address] 0.4 mg under the tongue every 5 (five) minutes as needed for chest pain , if no relief after 3 doses call 911 . Active multivitamin (THERAGRAN) per tablet Take 1 tablet by mouth daily . Active calcium carbonate (OS-RADHA) 600 mg calcium (1,500 mg) tablet Take 600 mg by mouth daily . Active biotin 1 mg cap Take 100 mg by mouth daily . Active cinnamon bark (CINNAMON ORAL) Take 350 mg by mouth daily . Active lutein-zeaxanth in 25-5 mg cap Take by mouth daily . Active insulin glargine (LANTUS SOLOSTAR/BASAGL AR KWIKPEN) 100 unit/mL (3 mL) InPnIndications :type 2 diabetes mellitus Inject 15 (fifteen) Units under the skin nightly for 27 days Reasons: type 2 diabetes mellitus. 4 mL 2 Active amLODIPine (NORVASC) 10 MG tablet Take 1 (one) tablet (10 mg total) by mouth daily with lunch . 30 tablet 2 Active metoprolol succinate (TOPROL-XL) 50 MG 24 hr tablet Take 0.5 (one-half) tablet (25 mg total) by mouth 2 (two) times a day Then increase dose to 50 mg two times a day for 5 days . 5 tablet 2 Active Active Problems Problem Noted Date Diagnosed Date Sustained ventricular tachycardia 07/01/2021 Family History Medical History Relation Comments Heart disease Father Hypertension Father Cancer Maternal Aunt Cancer Maternal Uncle Hypertension Mother Cancer Paternal Aunt Cancer Paternal Uncle Diabetes Sister Relation Status Comments Father Maternal Aunt Maternal Uncle Mother Paternal Aunt Paternal Uncle Sister Social History Tobacco Use Types Packs/Day Years Used Date Smoking Tobacco: Never Smokeless Tobacco: Never Tobacco Cessation:Counseling Given: No Alcohol Use Standard Drinks/Week Comments Not Currently 0 (1 standard drink = 0.6 oz pur e alcohol) Comments Unknown Sex and Gender Information Value Date Recorded Sex Assigned at Not on file Legal Sex Female 9:06 PM EDT Gender Identity Not on file Sexual Orientation Not on file Last Filed Vital Signs Vital Sign Reading Time Taken Comments Blood Pressure 137/115 07/03/2021 11:00 AM EDT Pulse 85 07/03/2021 11:20 AM EDT Temperature 36.6 C (97.8 F) 07/03/2021 11:00 AM EDT Respiratory Rate 18 07/03/2021 11:2 0 AM EDT Oxygen Saturation 94% 07/03/2021 11: 00 AM EDT Inhaled Oxygen Concentration - - Weight 99.7 kg (219 lb 12.8 oz) 022 11:05 PM EDT Height 157.5 cm (5' 2 ) 07/01/2021 4:04 AM EDT Body Mass Index 40.2 07/01/2021 4:04 AM EDT Plan of Treatment Health Maintenance Due Date Last Done Comments Dexa Scan 1950 Tetanus: Every 10yrs 1950 Medicare Wellness Visit 06/23/1953 Depression Screening/Follow- Up (PHQ-2/9) 1960 Hepatitis C Screening 1966 Mammogram 1988 Zoster Vaccines (1 of 2) 1998 Falls Risk Assessment 2013 Pneumococcal Vaccine: Age 50 + (2 of 2 - PCV) 11/09/2019 11/08/2018 Respiratory Syncytial Virus Immunization: Risk, 60-74 Risk, or 75+ (1 - 1-dose 75+ series) 06/23/2023 COVID-19 Vaccine ( season) 2023 01/17/2021, 04/22/2020, 04/01/2020 Influenza Vaccine (Season Ended) 2024 01/15/20 21, 11/27/2019 Insurance [employer] MED[employer]ARE PLAN (PPO) Advance Directives For more information, please contact: [phone] * Full Code (Latest Code Status on File) Date Activated Date Inactivated Comments 07/01/2021 12:09 AM 07/03/2021 4:33 PM Care Teams Operating Table Assembler Relationship Specialty Start Date End Date Darlene Hatfield MD [address] [place] [address] PCP - General Family Medicine 06/30/21
--- OUTSIDE RECORDS SUMMARY | 2024-07-30 22:27 | XMS_ITS | Clinical Summary ---
Author Organization [facility] Address [address] [place] [address] Phone Care Team Providers Care Theatrical Rigger Name Role Phone Delmar Rivero MD Primary Care Provider [phone] Allergies No known active allergies Medications aspirin 81 mg EC tablet Take 1 tablet (81 mg) by mouth once daily. Active HumaLOG KwikPen Insulin 100 unit/mL injection Inject under the skin 3 times daily (morning, midday, late afternoon). Per sliding scale Active Januvia 100 mg tablet Take 1 tablet (100 mg) by mouth once daily. Active losartan (Cozaar) 100 mg tablet Take 1 tablet (100 mg) by mouth once daily. Active nitroglycerin (Nitrostat) 0.[address] 1 tablet (0.4 mg) under the tongue every 5 minutes if needed for chest pain. Active traZODone (Desyrel) 50 mg tablet Take 1 tablet (50 mg) by mouth once daily at bedtime. Active Lantus Solostar U-100 Insulin 100 unit/mL (3 mL) pen Inject 15 Units under the skin once daily at bedtime. 4 Active latanoprost (Xalatan) 0.005 % ophthalmic solution INSERT 1 drop IN BOTH EYES AT BEDTIME 4 Active Wellbutrin XL 150 mg 24 hr tablet Take 1 tablet (150 mg) by mouth once daily in the morning. 4 Active Cinnamon 500 mg capsule Take 1 capsule (500 mg) by mouth once daily. Active mv-mn/folic ac/calcium/vit K1 (WOMEN'S 50 PLUS MULTIVITAMIN ORAL) Take 1 tablet by mouth once daily. Active rosuvastatin (Crestor) 20 mg tabletIndications:M ixed hyperlipidemia TAKE 1 TABLET BY MOUTH AT BEDTIME 90 tablet 3 5 Active amLODIPine (Norvasc) 5 mg tabletIndications:B enign essential hypertension TAKE 1 TABLET BY MOUTH DAILY 90 tablet 3 5 Active Active Problems Problem Noted Date Diagnosed Date Never smoked tobacco 01/26/[address] percutaneous transluminal coronary angioplasty (PTCA) 01/26/2024 BMI 32.0-32.9,adult 04/29/2023 Assessment & Plan (04/29/2023 2:24 PM EDT): She is actively making lifestyle changes Weight is down 11 pounds Encouraged to continue Benign essential hypertension 02/22/2023 Assessment & Plan (04/29/2023 2:22 PM EDT): Optimal in office Coronary artery disease invo lving [place] coronary artery of [place] heart without angina pectoris 02/22/2023 Assessment & Plan (04/29/2023 2:23 PM EDT): No ACS admit or acute MO. CAD was identified on testing for high PVC burden. November 2019 mLAD PCI/[place] 2.5/22mm (+IFR) Circumflex negative RCA negative LVEF 65% May 2021 MPI no ischemia Diabetes (Multi) 02/22/2023 Assessment & Plan (04/29/2023 2:24 PM EDT): Maintained on ARB/statin Reports most recent hemoglobin A1c 6.4 Hyperlipidemia 02/22/2023 Assessment & Plan (04/29/2023 2:23 PM EDT): High intensity statin Annual labs through PCP PVC's (premature ventricular contractions) 02/22 Assessment & Plan (04/29/2023 2:24 PM EDT): CAD was initially identified during workup for PVC burden. February 2022 Holter 8.4% PVC burden Denies dizziness lightheadedness, no prior syncope. Vertigo 02/22/2023 Resolved Problems Problem Noted Date Diagnosed Date Resolved Date Status post insertion of chris g-eluting stent into left anterior descending (LAD) artery 02/22/2023 04/29/2023 Encounters Date Type Department Care Team Description 06/08/[address] [phone] Zak Hancock, Benign essential hypertension from Last 3 Months Immunizations Immunization Administration Dates Next Due Flu vaccine, quadrivalent, h igh-dose, preservative free, age 65y+ (FLUZONE) 11/27/2019 Flu vaccine, quadrivalent, r ecombinant, preservative free, adult (FLUBLOK) 01/14/2021 Flu vaccine, trivalent, pres ervative free, HIGH-DOSE, age 65y+ (Fluzone) 11/25/2019 Pneumococcal polysaccharide vaccine, 23-valent, age 2 years and older (PNEUMOVAX 23) 11/08/2018 Social History Tobacco Use Types Packs/Day Years Used Date Smoking Tobacco: Never Smokeless Tobacco: Never Tobacco Cessation:Counseling Given: Not Answered Alcohol Use Standard Drinks/Week Comments Never 0 [...] Sign Reading Time Taken Comments Blood Pressure 126/62 01/26/2024 10:02 AM EST Pulse 82 01/26/2024 10:02 AM EST Temperature - - Respiratory Rate - - Oxygen Saturation - - Inhaled Oxygen Concentration - - Weight 78.7 kg (173 lb 9.6 oz) 01/26/2024 10:02 AM EST Height 157.5 cm (5' 2 ) 01/26/2024 10:02 AM EST Body Mass Index 31.75 01/26/2024 10:02 AM EST Plan of Treatment Upcoming Encounters Date Type Department Care Team (Late st Contact Info) Description 02/06/2025 3:10 PM EST Office Visit [address] [phone] Zak Hancock, DO [address] [facility] [address] [place] [address] Health Maintenance Due Date Last Done Comments Bone Density Scan 1950 Diabetes: Celiac Disease Screening 1948 Lipid Panel 1950 Medicare Annual Wellness Visit (AWV) 1950 Vitamin B-12 1948 Diabetes: Retinopathy Screening 1958 Hepatitis C Screening 1966 DTaP/Tdap/Td Vaccines (1 - Tdap) 1970 Zoster Vaccines (1 of 2) 1998 Pneumococcal Vaccine (2 of 2 - PCV) 11/09/2019 11/08/2018 Diabetes: Hemoglobin A1C 10/01/2021 07/01/2021 TSH Level 07/01/2022 07/01/2021 RSV High Risk: (Elderly (60+) or Population) (1 - 1-dose 75+ series) 06/23/2023 COVID-19 Vaccine (2 - season) 2023 01/19/2023 Mammogram Discontinued 11/16/2019 Influenza Vaccine Completed 12/23/2023, , 01/14/2021, Additional history exists HIB Vaccines Aged Out No longer eligi ble based on patient's age to complete this topic HPV Vaccines Aged Out No longer eligi ble based on patient's age to complete this topic Hepatitis A Vaccines Aged Out No long er eligible based on patient's age to complete this topic Hepatitis B Vaccines Aged Out No long er eligible based on patient's age to complete this topic IPV Vaccines Aged Out No longer eligi ble based on patient's age to complete this topic Meningococcal Vaccine Aged Out No darryn kimberly eligible based on patient's age to complete this topic Rotavirus Vaccines Aged Out No longer eligible based on patient's age to complete this topic Procedures Procedure Name Priority Date/Time Associated Diagnosis Comments MAMMOGRAM - ONBASE SCAN 11/16/2019 from Last 3 Months or Most Recently Relevant to Health Maintenance Results * MAMMOGRAM - ONBASE SCAN (11/16/2019) Anatomical Region Laterality Modality Mammography Narrative 11/16/2019 Ordered by an unspecified provider. us Onbase Conversion IMG BI PROCEDURES Final Result from Last 3 Months or Most Recently Relevant to Health Maintenance Insurance [employer] MEDICARE [employer] MEDICARE Care Teams Theatrical Rigger Relationship Specialty Start Date End Date Delmar Rivero MD [address] [facility] [place] [address] PCP - General Family Medicine 01/26/24
--- OUTSIDE RECORDS SUMMARY | 2024-07-30 22:27 | XMS_ITS | Encounter Summary ---
Author Organization [facility] Address [address] [place] [address] Phone Care Team Providers Care Tube Pusher Name Role Phone Darlene Hatfield MD Primary Care Provider [phone] Delmar Rivero MD Primary Care Provider [phone] Encounter Details Date Type Department Care Team (Late st Contact Info) Description 08/06/2021 Orders Only [facility] [address] [place] [address] Conversion, Onbase Social History Tobacco Use Types [...] Description 02/06/2025 3:10 PM EST Office Visit [facility] [address] [facility] [address] [place] [address] Zak Hancock DO [address] [facility] [address] [place] [address] Scheduled Orders Name Type Priority Associated Diagnoses Orde r Schedule OUTSIDE LAB SCAN Lab Ordered: 08/06/2021 documented as of this encounter Visit Diagnoses Not on filedocumented in this encounter Additional Health Concerns Assessment Noted Time PHQ-9 Depression Total Score: 6 07/23/19 22 8:27 AM EDT documented as of this encounter Care Teams Tube Pusher Relationship Specialty Start Date End Date Darlene Hatfield MD [address] [facility] [place] [address] PCP - General 05/18/02 01/25/24 Delmar Rivero MD [address] [facility] [place] [address] PCP - General Family Medicine 01/26/24 documented as of this encounter
--- OUTSIDE RECORDS SUMMARY | 2024-07-30 22:27 | XMS_ITS | Clinical Summary ---
Author Organization [facility] Address [address] [place] [address] Care Team Providers Care Document Specialist Name Role Phone Unavailable Primary Care Provider Unavailabl e Social History Tobacco Use Types Packs/Day Years Used Date Smoking Tobacco: Never Assessed Comments Unknown Sex and Gender Information Value Date Recorded Sex Assigned at Not on file Legal Sex Female 6:56 PM EDT Gender Identity Not on file Sexual Orientation Not on file Last Filed Vital Signs Vital Sign Reading Time Taken Comments Blood Pressure 138/80 08/02/2017 12:00 PM EDT Pulse - - Temperature - - Respiratory Rate - - Oxygen Saturation - - Inhaled Oxygen Concentration - - Weight 93.4 kg (206 lb) 08/02/2017 12:00 PM EDT Height 157.5 cm (5' 2 ) 08/02/2017 12:00 PM EDT Body Mass Index 37.68 08/02/2017 12:00 PM EDT Plan of Treatment Not on file
--- OUTSIDE RECORDS SUMMARY | 2024-07-30 22:28 | XMS_ITS | CCD ---
Author Organization [facility] Care Team Providers Care Developer Architect Name Role Phone Domonique Hatfield Unavailable Unavailable Unavailable [facility] Consult[facility] MIKEY Olson Attending Unavailable [...] Domonique Elena Primary Care Unavailab le Wendy II, Dr. Zak Kendall Attending Unavailable McGuinn [...] ., DR DOMONIQUE Cuevas Primary Care Unavailable MCCRACKEN, DR JAVAD Katz Consulting Unavailable HATFIELD ., [...] Care Physician Dewayne Richey. Primary Care Physician [phone] Domonique Hatfield MD Primary Care Provider [phone] Dewayne Richey. Attending Unavailable Dewayne Richey. Admitting Unavailable Dewayne Richey. Attending Unavailable Dewayne Richey. Attending Unavailable Dewayne Richey. Admitting Unavailable Denia Rowell Attending Unavailable RowellDenia coronado L Attending Unavailable RowellDenia coronado L Attending Unavailable RowellRiley coronadoa L Attending Unavailable RowellRiley coronadoa L Attending Unavailable Rowell, Denia L Attending Unavailable Dewayne Richey ERodger Attending Unavailable Dewayne Richey ERodger Admitting Unavailable Dewayne Richey Attending Unavailable Dewayne Richey MD Primary Care Provider [phone] GARY CHÁVEZ Attending Unavailable DOMONIQUE HATFIELD Primary Care Unavailable ZAK HANCOCK Attending Unavailable GARY CHÁVEZ Referring Unavailable DEWAYNE RICHEY Primary Care Unavailable Dewayne Richey Attending Unavailable DOMINIC ORTEGA Attending Unavailable Mat Dewayne ERodger Attending Unavailable Mat, Dewayne ERodger Attending Unavailable Mat, Dewayne ERodger Admitting Unavailable Mat, Dewayne ERodger Admitting Unavailable Mat Dewayne ERodger Attending Unavailable Rowell, Denia L Attending Unavailable Rowell, Denia L Attending Unavailable Rowell, Denia L Attending Unavailable Rowell, Denia L Attending Unavailable Rowell, Denia L Attending Unavailable Rowell, Denia L Attending Unavailable Rowell, Denia L Attending Unavailable Rowell, Denia L Attending Unavailable Rowell, Denia L Attending Unavailable Rowell, Denia L Attending Unavailable Dewayne Richey Attending Unavailable Mat Dewayne E. Attending Unavailable Jennifer, FLANGING 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 Pilar L Attending Unavailable Mat, Dewayne ERodger Attending Unavailable Mat, Dewayne E. Attending Unavailable Rowell, Denia L Attending Unavailable [...] Attending Unavailable Rowell, Denia L Attending Unavailable Mat, Dewayne E. Attending Unavailable Mat Dewayne ERodger Attending Unavailable Allergies Allergy Classification Reported Allergen(s) Allergy Type Date of Onset Reaction(s) Facility (20 sources) Diclofenac / miSOPROStol; Translations: [diclofenac-mis oprostol] Drug Allergy Unknown (qualifier value) [facility] (3 sources) Diclofenac / miSOPROStol; Translations: [Arthrotec] Drug Allergy [facility] (3 sources) No Known Medication Allergies; Translations: [No Known Medication Allergies] Propensity to adverse reactions (disorder) [facility] Medications Current Medications Medication Drug [...] Date: 05/25/22 Status: Ordered Start: 11-28-2019 take 1 tablet by li th once daily Aspirin 81 mg Tablet,Chewable Active 81 MG PO Daily 0 November 27, 2019 11:00pm biotin 1 mg chewable tablet (19 sources) Start: 09-28-2023 take 1 tablet by mouth once daily Biotin 1,000 mcg tablet,chewable Active 1000 MCG PO Daily September 27, 2023 11:00pm take 1 tablet by li th every twenty-four hours Biotin 1000 MCG 1 tablet Orally Once a day Active take 1 tablet by li th every twenty-four hours Biotin 1000 MCG 1 tablet Orally Once a day Active Biotin 1000 MCG Oral Tablet TAKE DIRECTED PER PACKAGE INSTRUCTIONS. Quantity: 0 Refills: 0 Ordered: 22-Jul-2021 DO Active Biotin Active 24 hr buPROPion hydrochloride 300 mg extended release oral tablet (6 sources) Aminoketone Start: 03-31-2024 take 1 tablet by mouth once daily buPROPion 300 mg/24 hours ER Tab 300 mg = 1 tab(s), Oral, Daily, # 90 tab(s), Refills(s) 1, Pharmacy: [id number], 158, cm, 03/28/24 15:03:00 EST, Height/Length Dosing, 77.1, kg, 03/28/24 15:03:00 EST, Weight Dosing Start Date: 03/31/24 Status: Ordered Start: 01-17-2024 take 1 tablet by il th once daily in the morning Wellbutrin XL 150 mg 24 hr tablet Take 1 tablet (150 mg) by mouth once daily in the morning. 01/17/2024 Active Start: 01-17-2024 take 1 tablet by li th every twenty-four hours Wellbutrin XL 150 mg/24 hours Tab-ER 150 mg = 1 tab(s), Oral, q24hr, # 90 tab(s), Refills(s) 0, Pharmacy: [id number], 158, cm, 01/17/24 9:38:00 EST, Height/Length Dosing, 79.9, kg, 01/17/24 9:38:00 EST, Weight Dosing Start Date: 01/17/24 Status: Ordered calcium carbonate 1500 mg oral tablet (4 sources) take 1 tablet by il th every twenty-four hours Calcium 600 MG 1 tablet with meals Orally Once a day Active take 1 tablet by li th every twenty-four hours Calcium 600 MG 1 tablet with meals Orally Once a day Active cinnamon bark 500 mg oral capsule (15 sources) Start: 03-14-2024 take 1 capsule by mouth once daily Cinnamon Bark 500 mg capsule Active 1000 MG PO Daily March 14, 2024 12:00am take 1 capsule by mouth once jero ly Cinnamon 500 mg capsule Take 1 capsule (500 mg) by mouth once daily. Active cinnamon preparation 500 mg oral tablet [...] Status: Ordered escitalopram 5 mg oral tablet (10 sources) Serotonin Reuptake Inhibitor Start: 09-27-2023 take 1 tablet by mouth once daily Lexapro 5 mg oral tablet 5 mg = 1 tab(s), Oral, Daily, # 90 tab(s), Refills(s) 0, Pharmacy: [id number], 158, cm, 09/27/23 13:00:00 EDT, Height/Length Dosing, 77.8, kg, 09/27/23 13:00:00 EDT, Weight Dosing Start Date: 09/27/23 Status: Ordered Foltanx oral tablet (14 sources) Start: 03-30-2023 Foltanx oral tablet 1 tab(s), Oral, Daily, 90 tab(s), Refill(s) 0, [facility] #[id number], 158, cm, 03/30/23 10:02:00 EST, Height/Length Dosing, 82.6, kg, 03/30/23 10:02:00 EST, Weight Dosing Start Date: 03/30/23 Status: Ordered Start: 12-22-2022 Foltanx oral t ablet 1 tab(s), Oral, Daily, 90 tab(s), Refill(s) 0, [facility] #[id number], 158, cm, 12/21/22 13:46:00 EST, Height/Length Dosing, 81.6, kg, 12/21/22 13:46:00 EST, Weight Dosing Start Date: 12/22/22 Status: Ordered Freestyle Sam 2 Flash Glucose Monitoring 14 Day System (Sensor) (20 sources) Start: 01-27-2024 Freestyle Libr e 2 Flash Glucose Monitoring 14 Day System (Sensor) Freestyle Sam 2 Flash Glucose Monitoring 14 Day System (Sensor), See Instructions, 6 EA, 0, Freestyle Sam 2 Flash Glucose Monitoring 14 Day System (Sensor). Replace sensor every 14 days., [facility], Supply, 158, cm, 01/17/24 9:38:00 EST, Height/Length Dosing, 79.9, kg, 01/17/24 9:38:00 EST, Weight Dosing Start Date: 01/27/24 Status: Ordered Start: 11-12-2023 Freestyle Libr e 2 Flash [...] Replace sensor every 14 days., [facility] #[id number], Supply, 158, cm, 03/30/23 10:02:00 EST, Height/Length [...] UNIT SUBCUT Every evening September 28, 2023 9:35am Start: 05-19-2023 Lantus Solosta r U-100 Insulin 100 unit/mL (3 mL) pen Inject 15 Units under the skin once daily at bedtime. 05/19/2023 Active Start: 10-21-2022 Lantus Solosta r Pen 100 units/mL subcutaneous solution 15 unit(s), SubCutaneous, Once a day (at bedtime), # 15 mL, Refills(s) 3, Pharmacy: [facility] ([facility]), 157.5, cm, 10/05/22 16:38:00 EDT, [...] Discontinued 20 UNIT SUBCUT Twice daily November 25, 2019 11:00pm September 28, 2023 9:40am sliding scale insulin glargine (Lantus U-100 Insulin) [...] coverage, # 15 EA, Refills(s) 3, Pharmacy: [facility] ([facility]), 157.5, cm, [...] Kwik pen Insulin) 100 unit/mL insulin pen Active 0 UNIT SUBCUT Before meals and at bedtime November 25, 2019 11:00pm Please contact the information source for Protocol details. HumaLOG KwikPen Insulin 100 unit/mL injection Inject under the skin 3 times daily (morning, midday, late afternoon). Per sliding scale Active HumaLOG KwikPen 100 UNIT/ML as directed Subcutaneous SLIDING SCALE Active E-Dyrhkithyncj-L3-B12 3-35-2 MG (4 sources) take 1 tablet by mouth twice daily D-Uqigvowlktir-N9-B12 3-35-2 MG 1 tablet Orally Twice a day Active latanoprost 0.05 mg/ml ophthalmic solution (20 sources) Prostaglandin Analog Start : 09-27 take 1 drop(s) into the eye(s) once daily in the evening Latanoprost 0.005 % drops Active 1 DROPS OPHTHALMIC Every evening September 27, 2023 11:00pm Start: 09-28-2023 take 1 drop(s) into the eye(s) once daily in the evening Latanoprost Active 1 DROPS OPHTHALMIC Every evening September 28, 2023 12:00am Start: 07-20-2023 latanoprost Op th 0.005% Gunjan 1 drop(s), INSERT 1 drop IN BOTH EYES AT BEDTIME Start Date: 07/20/23 Status: Ordered Start: 07-13-2023 take 1 drop(s) into the eye(s) at bedtime latanoprost (Xalatan) 0.005 % ophthalmic solution INSERT 1 drop IN BOTH EYES AT BEDTIME 07/13/2023 Active losartan potassium 100 mg oral tablet [...] mg / zeaxanthin 1 mg oral capsule (15 sources) Start: 09-28-2023 take 1 capsule by mouth once daily Lutein-Zeaxanthin 20 mg- 1,000 mcg capsule Active 1 CAP PO daily September 27, 2023 11:00pm Lutein-Zeaxanthi n 25-5 MG as directed Orally ONCE A DAY Active Lutein-Zeaxanthi n 25-5 MG as directed Orally ONCE A DAY Active Lutein-Zeaxanthi n Active Multivitamin preparation (6 sources) Start: 09-28-2023 take 1 tablet by mouth once daily Multivitamin Active 1 TAB PO Daily September 28, 2023 12:00am take 1 tablet by mouth once magi y Multivitamin - 1 tablet Orally Once a day Active Multivitamin Act tra Multivitamin tablet (1 source) Start: 09-28-2023 take 1 tablet by mouth once daily Multivitamin tablet Active 1 TAB PO Daily September 27, 2023 11:00pm mv-mn/folic ac/calcium/vit K1 (WOMEN'S 50 PLUS MULTIVITAMIN ORAL) (1 source) take 1 tablet by mouth once daily before mealtime mv-mn/folic ac/calcium/vit K1 (WOMEN'S 50 PLUS MULTIVITAMIN ORAL) Take 1 tablet by mouth once daily. Active nitroglycerin 0.4 mg sublingual tablet (20 sources) Nitrate Vasodilator Start: 03-30-2023 NitroStat 0.4 mg Tab See Instructions, use as needed for chest pain, # 25 tab(s), Refills(s) 0, Pharmacy: [facility], 158, cm, 03/30/23 10:02:00 EST, Height/Length Dosing, 82.6, kg, 03/30/23 10:02:00 EST, Weight Dosing Start Date: 03/30/23 Status: Ordered Start: 05-25-2022 NitroStat 0.4 mg Tab See Instructions, use as needed for chest pain, Refills(s) 0 Start Date: 05/25/22 Status: Ordered Start: 11-28-2019 Nitroglycerin 0.4 mg tablet, sublingual Active 0.4 MG SUBLINGUAL Q5M as needed for chest pain November 27, 2019 11:00pm do not exceed 3 doses per episode Nitroglycerin Ac tive Pen Napavine (20 sources) Start: 08-11-2023 Pen Napavine Pe n Napavine, See Instructions, 3 EA, 3, To be used with admin. of insulin QID. Dx: E11.22 1ea equals 1box, [facility], Supply, 158, cm, 07/20/23 13:42:00 EDT, Height/Length Dosing, 79.3, kg, 07/20/23 13:55:00 EDT, Weight Dosing Start Date: 08/11/23 Status: Ordered Start: 02-22-2023 Pen Napavine Pe n Napavine, See Instructions, 12 EA, 1, To be used with admin. of insulin QID. Dx: E11.22 1 EA equals 1box, [facility], Supply, 158, cm, 12/21/22 13:46:00 EST, Height/Length Dosing, 81.6, kg, 12/21/22 13:46:00 EST, Weight Dosing Start Date: 02/22/23 Status: Ordered Start: 02-22-2023 Pen Napavine Pe n Napavine, See Instructions, 1 EA, 1, To be used with admin. of insulin QID. Dx: E11. 1ea equals 1box, [facility], Supply, 158, cm, 12/21/22 13:46:00 EST, Height/Length Dosing, 81.6, kg, 12/21/22 13:46:00 EST, Weight Dosing Start Date: 02/22/23 Status: Ordered Start: 01-05-2023 Pen Napavine Pe n Napavine, See Instructions, 300 EA, 1, To be [...] Status: Ordered Rosuvastatin Taco cium Active SITagliptin 25 mg oral tablet (20 sources) Dipeptidyl Peptidase 4 Inhibitor Start: 03-14-2024 take 4 tablets by mouth once daily Sitagliptin Phosphate (Januvia) 25 mg tablet Active 100 MG PO Daily March 14, 2024 10:29am Start: 03-14-2024 End: 03-14-2024 take 1 tablet by mouth once daily Sitagliptin Phosphate (Januvia) 25 mg tablet Discontinued 25 MG PO Daily March 14, 2024 12:00am March 14, 2024 10:29am Start: 11-26-2019 End: 03-14-2024 take 1 tablet by mouth once daily Januvia 100 mg Tab See Instructions, TAKE 1 TABLET BY MOUTH DAILY, # 90 tab(s), Refills(s) 3, Pharmacy: [facility], 158, cm, 09/27/23 13:00:00 EDT, Height/Length Dosing, 77.8, kg, 09/27/23 13:00:00 EDT, Weight Dosing Start Date: 10/19/23 Status: Ordered Januvia Active traZODone hydrochloride 50 mg oral tablet (20 sources) Serotonin Reuptake Inhibitor Start: 09-28-2023 Trazodone 50 mg tablet Active 25 MG PO Daily at bedtime September 27, 2023 11:00pm Start: 09-28-2023 take 25 mg by mouth [...] bedtime), # 45 tab(s), Refills(s) 0, Pharmacy: [facility], 158, cm, 06/29/23 10:10:00 EDT, Height/Length Dosing, 79.5, kg, 06/29/23 10:10:00 EDT, Weight Dosing Start Date: 06/29/23 Status: Ordered Start: 06-07-2023 traZODONE 50 m g Tab 25 mg = 0.5 tab(s), Oral, Once a day (at bedtime), # 15 tab(s), Refills(s) 0, Pharmacy: [facility] #[id number], 158, cm, 03/30/23 10:02:00 EST, Height/Length Dosing, 82.6, kg, 03/30/23 10:02:00 EST, Weight Dosing Start Date: 06/07/23 Status: Ordered Start: 03-30-2023 traZODONE 50 m g Tab 25 mg = 0.5 tab(s), Oral, Once a day (at bedtime), # 15 tab(s), Refills(s) 0, Pharmacy: [id number], 158, cm, 03/30/23 10:02:00 EST, Height/Length Dosing, 82.6, kg, 03/30/23 10:02:00 EST, Weight Dosing Start Date: 04/28/23 Status: Ordered take 1 tablet by li th once daily at bedtime traZODone (Desyrel) 50 mg tablet Take 1 tablet (50 mg) by mouth once daily at bedtime. Active take 0.5 tablet by m outh once daily at bedtime traZODone (Desyrel) 50 mg tablet Take 0.5 tablets (25 mg) by mouth once daily at bedtime. 0 Active Completed/Discontinued Medications Medication Drug Class(es) Dates Sig (Normalized) Sig (Original) amitriptyline hydrochloride 25 mg oral tablet (7 sources) Tricyclic Antidepressant Start: 11-26-2019 End: 09-28-2023 take 2 tablets by mouth once daily at bedtime Amitriptyline 25 mg tablet Discontinued 50 MG PO Daily at bedtime November 25, 2019 11:00pm September 28, 2023 9:35am Start: 11-26-2019 End: 09-28-2023 take 50 mg by mouth once daily at bedtime Amitriptyline Discontinued 50 MG PO Daily at bedtime November 26, 2019 12:00am September 28, 2023 10:35am take 1 tablet by li at bedtime Amitriptyline HCl - 25 MG Oral Tablet TAKE 1 TABLET AT BEDTIME. Quantity: 0 Refills: 0 Ordered: 22-Jul-2021 DO Active Amitriptyline HC l 50 MG 2 Orally qhs Active atorvastatin 20 mg oral tablet (2 sources) HMG-CoA Reductase Inhibitor Start: 11-26-2019 End: 09-28-2023 take 1 tablet by mouth once daily at bedtime Atorvastatin 20 mg tablet Discontinued 20 MG PO Daily at bedtime November 25, 2019 11:00pm September 28, 2023 9:36am Calcium (9 sources) Phosphate Binder, Calcium Calcium 600 TABS TAKE 1 TABLET DAILY. Quantity: 0 Refills: 0 Ordered: 05-Dec-2021 DO Active Calcium Active canagliflozin 100 mg oral tablet (3 sources) Sodium-Glucose Cotransporter 2 Inhibitor Start: 11-26-2019 End: 09-28-2023 take 1 tablet by mouth once daily in the morning Canagliflozin (Invokana) 100 mg tablet Discontinued 100 MG PO Every morning November 25, 2019 11:00pm September 28, 2023 9:36am Invokana Active Ketorolac (8 sources) Nonsteroidal Anti-inflammatory Drug, Cyclooxygenase Inhibitor Start: 04-20-2019 Toradol p er 15 mg Apr, 15 mg Start: 01-09-2018 Toradol per 15 mg Jan, 30 mg J-Nvmidwhcqbtc-V8-B12 3-35-2 MG Oral Tablet (8 sources) take 1 tablet by mouth once daily R-Qghdmdnzbigh-N9-B12 3-35-2 MG Oral Tablet Take 1 tablet daily Quantity: 0 Refills: 0 Ordered: 22-Jul-2021 DO Active D-Ulmddhxltvuj-G7-B12 3-35-2 MG TABS (4 sources) Y-Bynjyivscoah-O 6-B12 3-35-2 MG TABS Take 1 tablet daily Quantity: 0 Refills: 0 Ordered: 22-Jul-2021 DO Active meclizine hydrochloride 12.5 mg oral tablet (20 sources) Antiemetic Start: 2019 End: 2023 take 1 tablet by mouth three times daily as needed for dizziness Meclizine 12.5 mg tablet Discontinued 12.5 MG PO Three times daily as needed for dizziness 90 30 November 27, 2019 11:00pm September 28, 2023 9:36am Meclizine HCl Ac tive Mecobal-Levomefolat Ca-B6 Phos (X-Nrqikw-Q9-B12) 3-35-2 mg tablet (2 sources) Start: 11-26-2019 End: 09-28-2023 take 1 tablet by mouth once daily in the morning Mecobal-Levomefolat Ca-B6 Phos (A-Lkaalp-K3-B12) 3-35-2 mg tablet Discontinued 1 TAB PO Every morning November 25, 2019 11:00pm September 28, 2023 9:36am Start: 11-26-2019 End: 09-28-2023 take 1 tablet by mouth once daily in the morning Mecobal-Levomefolat Ca-B6 Phos (U-Hnqdbd-W2-B12) 3-35-2 mg tablet Discontinued 1 TAB PO Every morning November 26, 2019 12:00am September 28, 2023 10:36am melatonin 10 mg oral capsule (12 sources) take 1 capsule by vt okh at bedtime [facility] Melatonin 10 MG Oral Capsule TAKE 1 CAPSULE Bedtime Quantity: 0 Refills: 0 Ordered: 05-Dec-2021 DO Active take 1 tablet by li once daily at bedtime as needed Melatonin 10 MG 1 tablet at bedtime as needed Orally Once a day Active Melatonin 3 MG 2 Orally qhs Active 24 hr metoprolol succinate 50 mg extended release oral tablet (9 sources) beta-Adrenergic Feng Start: 08-27-2021 Metopr olol [...] once daily in the morning Metoprolol Succinate 50 mg Tablet Extended Release 24 Hr Discontinued 50 MG PO Every morning 30 November 27, 2019 11:00pm September 28, 2023 9:36am Start: 11-26-2019 End: 11-28-2019 take 1 tablet by mouth once daily in the morning Metoprolol Succinate 25 mg tablet extended release 24 hr Discontinued 25 MG PO Every morning November 25, 2019 11:00pm November 28, 2019 2:42pm Metoprolol Succi sadie Active Multi Vitamin TABS (8 sources) Multi Vitamin TA BS TAKE 1 TABLET DAILY. 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] 12-28-2022 Chronic Anxiety disorders (20 sources) Complex posttraumatic stress disorder; Translations: [Posttraumatic stress disorder] Onset: 4 01-04-2023 Chronic Attention-deficit, conduct, and disruptive behavior disorders (7 sources) Attention deficit hyperactivity disorder, predominantly inattentive type 01-02-2024 Chronic Attention-deficit, conduct, and disruptive behavior disorders (10 sources) Compulsive behavior 11-29-2023 Episodic Cardiac dysrhythmias (20 sources) Ventricular premature beats; Translations: [Other premature beats] Onset: 4 04-29-2023 Chronic Comment on above: noted in 04/29/2023 Cardiology Consult Note page 4. added per [facility] policy. Chronic kidney disease (20 sources) Chronic kidney disease stage 3; Translations: [Chronic kidney disease, stage 3 unspecified] Onset: 4 05-25-2022 Chronic Comment on above: linked HTN with CKD per [facility] policy. Conditions associated with dizziness or vertigo (16 sources) Vertigo; Translations: [Dizziness and giddiness] Onset: 4 02-22-2023 Episodic Coronary atherosclerosis and other heart disease (20 sources) Coronary arteriosclerosis; Translations: [Coronary atherosclerosis of unspecified type of vessel, sokaogon or graft] Onset: 4 04-29-2023 Chronic Comment on above: noted in 04/29/2023 Cardiology Consult Note page 3. added per [facility] policy. Coronary atherosclerosis and other heart disease (2 sources) Coronary angioplasty status; Translations: [Coronary angioplasty status] Onset: 4 Episodic Diabetes mellitus with complications (20 sources) Renal disorder due to type 1 diabetes mellitus; 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] Onset: 2 Chronic Comment on above: linked DM with gastr oparesis per [facility] policy. Diabetes mellitus without complication (20 sources) Diabetes mellitus; Translations: [Diabetes mellitus without mention of complication, type II or unspecified type, not stated as uncontrolled] Onset: 3 Chronic Comment on above: linked DM with CKD p er [facility] policy. linked DM with HLD p er [facility] policy. Disorders of lipid metabolism (20 sources) Hyperlipidemia; Translations: [Other and unspecified hyperlipidemia] Onset: 2 Chronic Esophageal disorders (20 sources) Gastroesophageal reflux disease 05-25-2022 Chronic Essential hypertension (20 sources) Benign essential hypertension; Translations: [Benign essential hypertension] Onset: 4 Chronic Comment on above: noted in 04/29/2023 Cardiology Consult Note page 3. added per [facility] policy. Hypertension with complications and secondary hypertension (5 sources) Hypertensive chronic kidney disease with stage 1 through stage 4 chronic kidney disease, or unspecified chronic kidney disease; Translations: [Hypertensive renal disease] Onset: 3 09-25-2023 Chronic Nonspecific chest pain (2 sources) Chest pain; Translations: [Chest pain, unspecified] 11-26-2019 Episodic Other bone disease and musculoskeletal deformities (20 sources) Osteopenia 01-06-2023 Episodic Other diseases of kidney and ureters (1 source) Cyst of kidney, acquired; Translations: [CYST OF KIDNEY ACQUIRED] Onset: 3 Episodic Other disorders of stomach and duodenum (18 sources) Gastroparesis syndrome 05-25-2022 Episodic Other gastrointestinal disorders (1 source) Constipation 03-28-2024 Episodic Other lower respiratory disease (2 sources) Dyspnea; Translations: [Shortness of breath] 11-26-2019 Episodic Other nutritional; endocrine; and metabolic disorders (15 sources) Obesity; Translations: [Obesity, unspecified] 09-25-2023 Chronic Other nutritional; endocrine; and metabolic disorders (20 sources) Body mass index 30+ - obesity; Translations: [Body mass index (BMI) 32.0-32.9, adult] Onset: 4 04-29-2023 Chronic Other nutritional; endocrine; and metabolic disorders (2 sources) Hypercalcemia; Translations: [Hypercalcemia] 09-28-2023 Chronic Other nutritional; endocrine; and metabolic disorders (2 sources) Hypercalcemia; Translations: [Hypercalcemia] 09-28-2023 Chronic Other nutritional; endocrine; and metabolic disorders (2 sources) Obesity, unspecified; Translations: [Obesity, unspecified] 09-28-2023 Chronic Other nutritional; endocrine; and metabolic disorders (2 sources) Body mass index (BMI) 32.0-32.9, adult; Translations: [Body mass index (BMI) 32.0-32.9, adult] Onset: 4 Chronic Other screening for suspected conditions (not mental disorders or infectious disease) (6 sources) Encounter for screening mammogram for malignant neoplasm of breast; Translations: [Cardiovascular stress test abnormal] Onset: 2 Episodic Residual codes; unclassified (2 sources) Sleep apnea; Translations: [Sleep apnea, unspecified] 11-26-2019 Chronic Residual codes; unclassified (20 sources) Insomnia 03-30-2023 Episodic Residual codes; unclassified (2 sources) Never smoked tobacco; Translations: [Other specified health status] Onset: 4 01-26-2024 Episodic Residual codes; unclassified (2 sources) Other specified health status; Translations: [Other specified health status] Onset: 4 Episodic Unclassified (3 sources) CHRN KIDNEY DISEASE STG 3 UNSP; Translations: [CHRN KIDNEY DISEASE STG 3 UNSP] Onset: 2 Unclassified (17 sources) Long-term current use of insulin 06-28-2023 Comment on above: Current Medication L ist includes Lantus. added per [facility] policy. Unclassified (1 source) Non-smoker 03-28-2024 Viral infection (5 sources) Postherpetic neuralgia; Translations: [Other postherpetic nervous system involvement] Episodic Past or Other Problems Problem Classification Problem Date Documented Da te Episodic/Chronic Chronic kidney disease (4 sources) Chronic kidney disease; Translations: [CHRONIC KIDNEY DISEASE STAGE 3B] Onset: 05-31-2022 Mood disorders (2 sources) Mood disorders Onset: 06-19-2022 08-03-2022 Other injuries and conditions due to external causes (1 source) Unspecified injury of lower back, initial encounter; Translations: [Injury of back, initial encounter S39.92XA] Onset: 11-18-2020 Resolved: 11-18-2020 Episodic Unclassified (12 sources) Never smoked tobacco; Translations: [Never smoker] Unclassified (1 source) CHRN KIDNEY DISEASE STG 3 UNSP; Translations: [CHRN KIDNEY DISEASE STG 3 UNSP] Onset: 08-06-2021 Unclassified (2 sources) Onset: 04-29-2023 04-29-2023 Unclassified (1 source) Prolonged grief disorder; Translations: [Prolonged grief disorder] Onset: 09-15-2023 Results Test Name Value Interpretation Reference Range Facil ity Ambulatory Visit Summaryon 0 05-09-2024 Ambulatory Visit Summary Ambulatory Visit Summary OLIVA MCNULTY :1950 Visit Date:05/09/2024 Ambulatory Visit Instructions Your Diagnosis BMI 29.0-29.9,adult Overweight (BMI 25.0-29.9) Nonsmoker DM type 2 causing CKD stage 3 Complex posttraumatic stress disorder Attention deficit disorder (ADD) Chronic kidney disease, stage 3 unspecified Your Care Team Attending Physician - Dewayne Richey MD Primary Care Physician - Dewayne Richey MD This Is Your Medications [place] [facility] [place] (Freestyle Sam 2 Flash Glucose Monitoring 14 Day System (Sensor)) Mis Prescription (Pen Napavine) amlodipine aspirin (aspirin 81 mg Oral EC Tab) buPROPion (buPROPion 300 mg/24 hours ER Tab) insulin glargine (Lantus Solostar Pen 100 units/mL subcutaneous solution) insulin lispro (HumaLOG KwikPen 100 units/mL injectable solution) latanoprost ophthalmic (latanoprost Opth 0.005% Gunjan) losartan (losartan 100 mg Tab) nitroglycerin (NitroStat 0.4 mg Tab) rosuvastatin (rosuvastatin 20 mg Tab) sitagliptin (Januvia 100 mg Tab) trazodone (traZODONE 50 mg Tab) Procedures Performed Appendectomy, Arthroscopy, Cataracts, Cholecystectomy, Tonsillectomy and adenoidectomy. Discharge Vitals Temperature (Tympanic) 36.8 ???C Heart Rate (Peripheral) 88 Respiratory Rate 18 Blood Pressure 128/76 Height 158 cm Height 62 in Weight 74.8 kg Weight 164.906 lb BMI 29.96 What to do next Scheduled Follow-Up Appointments Wednesday 10:00 AM EDT With: Denia Ding Where: [facility] [place] Wednesday 9:00 AM EDT With: Denia Ding Where: [facility] Wednesday 9:00 AM EDT With: Denia Ding Where: [facility] Wednesday 9:00 AM EDT With: Denia Ding Where: [facility] 2024 8:20 AM EDT With: Dewayne Richey MD Where: [address] [id number]- Wednesday 1:00 PM EST With: Where: [address] [address]- Medications What How Much When Why Instructions Unchanged amlodipine 5 Milligram By Mouth Every day Unchanged aspirin (aspirin 81 mg Oral EC Tab) 1 Tablets By Mouth Every day Unchanged buPROPion (buPROPion 300 mg/ 24 hours ER Tab) 1 Tablets By Mouth Every day Unchanged insulin glargine (Lantus Solostar Pen 100 units/ mL subcutaneous solution) See instructions INJECT SUBCUTANEOUSLY 15 UNITS ONCE DAILY AT BEDTIME Unchanged insulin lispro (HumaLOG KwikPen 100 units/ mL injectable solution) See instructions INJECT SUBCUTANEOUSLY BEFORE MEALS & AT BEDTIME COVERAGE 150-200 2U, 201-250 4U, 251-300 6U. 301-350 8U. 351-400 10U WITH CARB COVERAGE Unchanged latanoprost ophthalmic (latanoprost Opth 0.005% Gunjan) 1 Drops INSERT 1 drop IN BOTH EYES AT BEDTIME Unchanged losartan (losartan 100 mg Tab) See instructions TAKE 1 TABLET BY MOUTH DAILY Unchanged Misc Prescription (Freestyle Sam 2 Flash Glucose Monitoring 14 Day System (Sensor)) See instructions Osteopenia Long-term insulin use DM type 2 causing ESRD Freestyle Sam 2 Flash Glucose Monitoring 14 Day System (Sensor). Replace sensor every 14 days. Unchanged Misc Prescription (Pen Napavine) See instructions To be used with admin. of insulin QID. Dx: E11.22 1ea equals 1box Unchanged nitroglycerin (NitroStat 0.4 mg Tab) See instructions use as needed for chest pain Unchanged rosuvastatin (rosuvastatin 20 mg Tab) 1 Tablets By Mouth Every day Unchanged sitagliptin (Januvia 100 mg Tab) See instructions TAKE 1 TABLET BY MOUTH DAILY Unchanged trazodone (traZODONE 50 mg Tab) See instructions TAKE ONE-HALF TABLET BY MOUTH ONCE DAILY AT BEDTIME Allergies No Known Medication Allergies Problems Ongoing - Any problem that you are currently receiving treatment for. 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 Normal [facility] Family Medicine Office/Clini c Noteon 05-09-2024 Family Medicine Office/Clinic Note Family Medicine Office/Clinic Note Chief Complaint Follow up to change in medication dose. Routine follow-up visit for chronic conditions management. HPI Staff 6wk follow up to increasing Wellbutrin to 300mg Follow up for Mental Status: Medication adherence- Yes, takes medication as prescribed Medication refill needed: no Suicidal thoughts-Not at this time Most recent MARANDA: 5 Most recent PHQ: 2 Overall satisfied with increased dosage. No other concerns. No refills needed at this time. History of Present Illness The patient is a 73-year-old female presenting with a routine follow-up appointment for chronic conditions management. She has a documented history of Attention Deficit Disorder (ADD) and manages these symptoms through continued care. Chronic Kidney Disease Stage 3 and Type 2 Diabetes Mellitus with Diabetic Chronic Kidney Disease are primary long-term health concerns. These conditions are monitored through regular assessments and maintenance of blood glucose and kidney function stability. There is an indication of a stable lifestyle, with the patient identifying as a nonsmoker. Overweight issues noted involve a BMI of 29.0-29.9, with ongoing efforts in social and activity participation being part of her strategy for weight management and overall well-being. She engages in supportive social forums such as Shankar meetings, which aid in mitigating the psychological aspects related to her health conditions. - Continue monitoring Hemoglobin A1c to maintain it below 7 for diabetes management. - Engage in community activities and support groups like Shankar to support mental health and social interaction. - Ongoing tracking of kidney function tests to manage Chronic Kidney Disease. - Encourage lifestyle activities that promote weight management. Review of Systems PHQ Score Initial Depression Screen Score: 2 SCORE Physical Exam Vitals & Measurements T: 36.8 ???C(Tympanic) HR: 88(Peripheral) RR: 18 BP: 128/76 SpO2: 100% HT: 158 cm HT: 62 in WT: 164.906 lb WT: 74.8 kg BMI: 29.96 General: alert, no acute distress ENMT: oral mucosa moist Cardiovascular: Regular rate and rhythm, normal peripheral perfusion Respiratory: Lungs clear to auscultation, respirations non labored Extremities: no deformity, no trauma Neurological: oriented x 4, level of consciousness appropriate for age, CN II-XII intact, motor strength equal & normal bilaterally, speech normal Abdomen: Soft, Non-tender, Non-distended, + Bowel sounds Assessment/Plan 1. BMI 29.0-29.9,adult (Z68.29: Body mass index [BMI] 29.0-29.9, adult) The patient is encouraged to remain active through participation in social and lifestyle activities, which aids in maintaining or reducing weight. 2. Overweight (BMI 25.0-29.9) (E66.3: Overweight) Diet exercise advised. Weight is down 5 pounds since March. Continue good work. 3. Nonsmoker (Z78.9: Other specified health status) Please do not smoke 4. DM type 2 causing CKD stage 3 (E11.22: Type 2 diabetes mellitus with diabetic chronic kidney disease) A management plan for diabetes aligns with maintaining Hemoglobin A1c levels below 7, focusing on lifestyle factors and medication adherence to prevent further complications. Ordered: A1c POC [id number] 5. Complex posttraumatic stress disorder (F43.10: Post-traumatic stress disorder, unspecified) Continue Wellbutrin. Discussed continuing counseling. Patient has improved significantly. Will refill meds today so we can see her back in 6 months. 6. Attention deficit disorder (ADD) (F98.8: Other specified behavioral and emotional disorders with onset usually occurring in childhood and adolescence) Attention Deficit Disorder management includes ongoing participation in social activities like meetings, which has helped stabilize mood and does not necessitate additional interventions at this time. Chronic kidney disease, stage 3 unspecified (N18.30: Chronic kidney disease, stage 3 unspecified) Management of Chronic Kidney Disease will continue with regular monitoring of kidney function and adherence to medications and dietary recommendations to prevent disease progression. The 73-year-old female with a history of Attention Deficit Disorder, Chronic Kidney Disease Stage 3, and Type 2 Diabetes Mellitus, presents for a routine follow-up appointment to monitor her chronic conditions. Attention Deficit Disorder remains stable, assisted by participation in social support activities. Chronic Kidney Disease and diabetes management focus on maintaining blood sugar and kidney function stability, with her efforts directed at weight management by engaging in lifestyle activities that promote overall well-being. During today's consultation, discussions were conducted regarding the ongoing management and treatment plans for the patient's chronic health conditions. I emphasized the importance of maintaining Hemoglobin A1c levels below 7 and confirmed the patient's understanding of the (more content not included)... Normal [facility] Comment on above: Result Comment: Elec tronically Signed By: Dewayne Richey MD\.br\Date and Time Signed: 05/09/24 09:20 EDT Ambulatory Visit Summaryon 0 03-28-2024 Ambulatory Visit Summary Ambulatory Visit Summary OLIVA MCNULTY :1950 Visit Date:03/28/2024 Ambulatory Visit Instructions Your Diagnosis Diabetic gastroparesis associated with type 2 diabetes mellitus Chronic kidney disease (CKD), stage III (moderate) Long-term insulin use Type 2 diabetes mellitus with hypercholesterolemia BMI 30.0-30.9,adult Obesity (BMI 30-39.9) Nonsmoker Complex posttraumatic stress disorder Gastroparesis Pure hypercholesterolemia, unspecified Your Care Team Attending Physician - Dewayne Richey MD Primary Care Physician - Dewayne Richey MD This Is Your Medications List Misc Prescription (Freestyle Sam 2 Flash Glucose Monitoring 14 Day System (Sensor)) Misc Prescription (Pen Napavine) amlodipine aspirin (aspirin 81 mg Oral EC Tab) buPROPion (Wellbutrin XL 150 mg/24 hours Tab-ER) insulin glargine (Lantus Solostar Pen 100 units/mL subcutaneous solution) insulin lispro (HumaLOG KwikPen 100 units/mL injectable solution) latanoprost ophthalmic (latanoprost Opth 0.005% Gunjan) losartan (losartan 100 mg Tab) nitroglycerin (NitroStat 0.4 mg Tab) rosuvastatin (rosuvastatin 20 mg Tab) sitagliptin (Januvia 100 mg Tab) trazodone (traZODONE 50 mg Tab) Procedures Performed Appendectomy, Arthroscopy, Cataracts, Cholecystectomy, Tonsillectomy and adenoidectomy. Discharge Vitals Temperature (Tympanic) 36.8 ???C Heart Rate (Peripheral) 54 Respiratory Rate 18 Blood Pressure 124/80 Height 158 cm Height 62 in Weight 77.1 kg Weight 169.976 lb BMI 30.88 What to do next Scheduled Follow-Up Appointments Wednesday 10:00 AM EST With: Denia Ding Where: [facility] Wednesday 9:00 AM EDT With: Denia Ding Where: [facility] Wednesday 10:00 AM EDT With: Denia Ding Where: [facility] Wednesday 9:00 AM EDT With: Denia Ding Where: [facility] Wednesday 8:15 AM EDT With: Mat JIMENEZ, Dewayne Zhao Where: [address] [id number]- Wednesday 1:00 PM EST With: Where: [address] [address]- Medications What How Much When Why Instructions Unchanged amlodipine 5 Milligram By Mouth Every day Unchanged aspirin (aspirin 81 mg Oral EC Tab) 1 Tablets By Mouth Every day Unchanged buPROPion (Wellbutrin XL 150 mg/ 24 hours Tab-ER) 1 Tablets By Mouth Every 24 hours Depression Obesity BMI 32.0-32.9,adult Exogenous obesity Nonsmoker Attention deficit disorder (ADD) Obsessive-compulsive behavior DM type 2 causing CKD stage 3 Insomnia Unchanged insulin glargine (Lantus Solostar Pen 100 units/ mL subcutaneous solution) See instructions INJECT SUBCUTANEOUSLY 15 UNITS ONCE DAILY AT BEDTIME Unchanged insulin lispro (HumaLOG KwikPen 100 units/ mL injectable solution) See instructions INJECT SUBCUTANEOUSLY BEFORE MEALS & AT BEDTIME COVERAGE 150-200 2U, 201-250 4U, 251-300 6U. 301-350 8U. 351-400 10U WITH CARB COVERAGE Unchanged latanoprost ophthalmic (latanoprost Opth 0.005% Gunjan) 1 Drops INSERT 1 drop IN BOTH EYES AT BEDTIME Unchanged losartan (losartan 100 mg Tab) See instructions TAKE 1 TABLET BY MOUTH DAILY Unchanged Misc Prescription (Freestyle Sam 2 Flash Glucose Monitoring 14 Day System (Sensor)) See instructions Osteopenia Long-term insulin use DM type 2 causing ESRD Freestyle Sam 2 Flash Glucose Monitoring 14 Day System (Sensor). Replace sensor every 14 days. Unchanged Misc Prescription (Pen Napavine) See instructions To be used with admin. of insulin QID. Dx: E11.22 1ea equals 1box Unchanged nitroglycerin (NitroStat 0.4 mg Tab) See instructions use as needed for chest pain Unchanged rosuvastatin (rosuvastatin 20 mg Tab) 1 Tablets By Mouth Every day Unchanged sitagliptin (Januvia 100 mg Tab) See instructions TAKE 1 TABLET BY MOUTH DAILY Unchanged trazodone (traZODONE 50 mg Tab) See instructions TAKE ONE-HALF TABLET BY MOUTH ONCE DAILY AT BEDTIME Allergies No Known Medication Allergies Problems Ongoing - Any problem that you are currently receiving treatment for. 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 Normal [facility] Family Medicine Office/Clini c Noteon 03-28-2024 Family Medicine Office/Clinic Note Family Medicine Office/Clinic Note Chief Complaint Follow up to starting Wellbutrin Emotional loneliness and concern about being a burden to family. HPI Staff 2m follow up to starting Wellbutrin Trazodone also increased to full tablet for tx of insomnia. DOES HELP Follow up for Mental Status: Medication adherence- Yes, takes medication as prescribed Medication refill needed: _ Suicidal thoughts-Not at this time Most recent MARANDA: 7 Most recent PHQ: 8 Other Concerns: Bowel habits. Occasional incontinence w/loose stools. History of Present Illness The patient is a 73-year-old female presenting with emotional concerns regarding loneliness and feeling like a burden to her family. The patient has a significant history of chronic medical conditions, including a Body Mass Index (BMI) in the range of 30.0-30.9, which denotes obesity. Alongside, she has chronic kidney disease at stage III, indicative of moderate renal impairment. Her medical history includes diabetic gastroparesis associated with type 2 diabetes mellitus, which necessitates long-term insulin use. She maintains a diagnosis of pure hypercholesterolemia and continues to manage type 2 diabetes mellitus with additional complexities due to hypercholesterolemia. Socially, the patient feels isolated due to limited mobility and less frequent visits from family due to geographical distances and busy family schedules. She narrated experiencing a fulfilling weekend visiting family, highlighting the howell contrast of her return home and subsequent loneliness. She is considering volunteer options to mitigate her sense of being a burden, however, she faces challenges such as poor vision. Past interventions include social gatherings like attending [employer] meetings for social interaction, and although beneficial, she missed a session due to travel. - Discussion on volunteering activities to enhance mental well-being and social interaction. - Encouragement to continue participation in community groups such as restorationism and [employer]-An[employer]. - Evaluation of emotional health and potential need for medication adjustments discussed. Review of Systems PHQ Score Initial Depression Screen Score: 0 SCORE Physical Exam Vitals & Measurements T: 36.8 ???C(Tympanic) HR: 54(Peripheral) RR: 18 BP: 124/80 SpO2: 96% HT: 62 in HT: 158 cm WT: 77.1 kg WT: 169.976 lb BMI: 30.88 General: alert, no acute distress ENMT: oral mucosa moist Cardiovascular: Regular rate and rhythm, normal peripheral perfusion Respiratory: Lungs clear to auscultation, respirations non labored Extremities: no deformity, no trauma Neurological: oriented x 4, level of consciousness appropriate for age, CN II-XII intact, motor strength equal & normal bilaterally, speech normal Abdomen: Soft, Non-tender, Non-distended, + Bowel sounds Assessment/Plan 1. Diabetic gastroparesis associated with type 2 diabetes mellitus (E11.43: Type 2 diabetes mellitus with diabetic autonomic (poly)neuropathy) Maintain current diabetes management plan with regular monitoring of blood glucose levels. 2. Chronic kidney disease (CKD), stage III (moderate) (N18.30: Chronic kidney disease, stage 3 unspecified) Continued monitoring of renal function, highlighting the importance of avoiding nephrotoxic agents. 3. Long-term insulin use (Z79.4: medical terminologist (current) use of insulin) Assured adherence to insulin therapy and addressed possible need for dosing adjustments considering behavioral and activity changes. 4. Type 2 diabetes mellitus with hypercholesterolemia (E11.69: Type 2 diabetes mellitus with other specified complication) Discussion on maintaining optimal glycemic control and lipid levels to prevent cardiovascular complications. 5. BMI 30.0-30.9,adult (Z68.30: Body mass index [BMI] 30.0-30.9, adult) Encouraged continued management of BMI through diet and physical activity, alignment with existing care for obesity. 6. Obesity (BMI 30-39.9) (E66.9: Obesity, unspecified) Continued lifestyle interventions to manage weight, discussed potential support from nutrition and physical activity programs. 7. Nonsmoker (Z78.9: Other specified health status) Please continue to not smoke. Ordered: buPROPion, 150 mg = 1 tab(s), Oral, q24hr, # 90 tab(s), Refills(s) 1, Pharmacy: [id number], 158, cm, 03/28/24 15:03:00 EST, Height/Length Dosing, 77.1, kg, 03/28/24 15:03:00 EST, Weight Dosing 8. Complex posttraumatic stress disorder (F43.10: Post-traumatic stress disorder, unspecified) Will increase the Wellbutrin. Advised getting into groups. Advised volunteering. Follow up PRN. 9. Constipation (K59.00: Constipation, unspecified) Believe this is overflow incontinence. Discussed ways to make it better. 73-year-old female with a history of type 2 diabetes mellitus, chronic kidney disease stage III, diabetic gastroparesis, and obesity presenting with emotional concerns. The patient's expressed feelings of loneliness and being a burden (more content not included)... Normal [facility] Comment on above: Result Comment: Elec tronically Signed By: Mat JIMENEZ, Dewayne Lynn.br\Date and Time Signed: 03/28/24 15:38 EST Estimated glomerular filtrat ion rate (GFR) non- Americanon 03-07-2024 GFR/1.73 sq M.predicted among non-blacks MDRD (S/P/Bld) [Vol rate/Area] Estimated glomerular filtration rate (GFR) non- Low >=60 mL/min/1.73m 2 [facility] Globulin Calc (S) [Mass/Vol] on 03-07-2024 Globulin (S) [Mass/Vol] Serum globulin measurement by calculation (mass/volume) [facility] Laboratory - Chemistry and C hemistry - challengeon 03-07-2024 Albumin [Mass/Vol] 3.6 g/dL 3.4-5.0 [facility] ALP [Catalytic activity/Vol] 75 U/L 46-116 [facility] ALT [Catalytic activity/Vol] 32 U/L 14-59 [facility] AST [Catalytic activity/Vol] 24 U/L 15-37 [facility] Bilirubin [Mass/Vol] 0.3 mg/dL 0.2-1.0 [facility] Calcium [Mass/Vol] 9.6 mg/dL 8.5-10.1 [facility] Chloride [Moles/Vol] 103 mmol/L 98-107 [facility] CO2 [Moles/Vol] 29.0 mmol/L 21.0-32.0 [facility] Creatinine [Mass/Vol] 1.23 mg/dL High 0.55-1.02 [facility] GFR/1.73 sq M.predicted MDRD (S/P/Bld) [Vol rate/Area] 52 mL/min/{1.73_m2} Low >=60 mL/min/1.73m 2 [facility] Glucose [Mass/Vol] 43 mg/dL Critically low 74-106 [facility] Comment on above: RESULTS CALLED TO ABBY NELSON LPN @BY Agatha Lyons [id number] Potassium [Moles/Vol] 3.7 mmol/L 3.5-5.1 [facility] Protein [Mass/Vol] 7.0 g/dL 6.4-8.2 [facility] Sodium [Moles/Vol] 139 mmol/L 136-145 [facility] Urate [Mass/Vol] 3.3 mg/dL 2.6-6.0 [facility] Urea nitrogen [Mass/Vol] 17.0 mg/dL 7.0-18.0 [facility] Urea nitrogen/Creatinine [Mass ratio] 13.8 mg/mg [facility] No Panel Informationon 03-07 Phosphorus Level 2.6 mg/dL 2.6-4.7 [facility] Serum or plasma albumin/glob ulin mass ratioon 03-07-2024 Albumin/Globulin [Mass ratio] Serum or plasma albumin/globulin mass ratio [facility] Serum or plasma anion gap de terminationon 03-07-2024 Anion gap [Moles/Vol] Serum or plasma anion gap determination [facility] Ambulatory Visit Summaryon 1 03-19-2023 Ambulatory Visit Summary Ambulatory Visit Summary OLIVA MCNULTY :1950 Visit Date:01/17/2024 Ambulatory Visit Instructions Your Diagnosis BMI 32.0-32.9,adult Exogenous obesity Nonsmoker Attention deficit disorder (ADD) Obsessive-compulsive behavior DM type 2 causing CKD stage 3 Insomnia Chronic kidney disease, stage 3 unspecified Your Care Team Attending Physician - Dewayne Richey MD Primary Care Physician - Dweayne Richey MD This Is Your Medications List Misc Prescription (Freestyle Sam 2 Flash Glucose Monitoring 14 Day System (Sensor)) Misc Prescription (Pen Napavine) amlodipine aspirin (aspirin 81 mg Oral EC [...] and adenoidectomy. Discharge Vitals Temperature (Temporal Artery) 36.9 ???C Heart Rate (Peripheral) 78 Respiratory Rate 16 Blood Pressure 122/70 Height 158 cm Height 62 in Weight 79.9 kg Weight 176.149 lb BMI 32.01 What to do next Scheduled Follow-Up Appointments Wednesday 10:00 AM EST With: Denia Ding Where: [facility] Wednesday 10:00 AM EST With: Mat JIMENEZ, Dewayne Zhao Where: [address] [address] Wednesday 1:00 PM EST With: Where: [address] [address] Medications What How Much When Why Instructions Unchanged amlodipine 5 Milligram By Mouth Every day Unchanged aspirin (aspirin 81 mg Oral EC Tab) 1 Tablets By Mouth Every day Unchanged insulin glargine (Lantus Solostar Pen 100 units/ mL subcutaneous solution) See instructions INJECT SUBCUTANEOUSLY 15 UNITS ONCE DAILY AT BEDTIME Unchanged insulin lispro (HumaLOG KwikPen 100 units/ mL injectable solution) See instructions INJECT SUBCUTANEOUSLY BEFORE MEALS & AT BEDTIME COVERAGE 150-200 2U, 201-250 4U, 251-300 6U. 301-350 8U. 351-400 10U WITH CARB COVERAGE Unchanged latanoprost ophthalmic (latanoprost Opth 0.005% Gunjan) 1 Drops INSERT 1 drop IN BOTH EYES AT BEDTIME Unchanged losartan (losartan 100 mg Tab) See instructions TAKE 1 TABLET BY MOUTH DAILY Unchanged Misc Prescription (Freestyle Sam 2 Flash Glucose Monitoring 14 Day System (Sensor)) See instructions Osteopenia Long-term insulin use DM type 2 causing ESRD Freestyle Sam 2 Flash Glucose Monitoring 14 Day System (Sensor). Replace sensor every 14 days. Unchanged Misc Prescription (Pen Napavine) See instructions To be used with admin. of insulin QID. Dx: E11.22 1ea equals 1box Unchanged nitroglycerin (NitroStat 0.4 mg Tab) See instructions use as needed for chest pain Unchanged rosuvastatin (rosuvastatin 20 mg Tab) 1 Tablets By Mouth Every day Unchanged sitagliptin (Januvia 100 mg Tab) See instructions TAKE 1 TABLET BY MOUTH DAILY Unchanged trazodone (traZODONE 50 mg Tab) See instructions TAKE ONE-HALF TABLET BY MOUTH ONCE DAILY AT BEDTIME Allergies No Known Medication Allergies Problems Ongoing - Any problem that you are currently receiving treatment for. 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 Adjustment disorder with disturbance of emotion Patient Survey You may receive a survey via text or e-mail asking about your office visit. Please share your experience with us by completing your survey. We appreciate your feedback and thank you for choosing us for your care. Normal [facility] Family Medicine Office/Clini c Noteon 01-17-2024 Family Medicine Office/Clinic Note Family Medicine Office/Clinic Note Chief Complaint Feeling down and difficulty maintaining routine due to depressive symptoms and insomnia. HPI Staff Oliva is a 73 year old female presenting to discuss medication Ran out of lexapro and just stopped it, didn't feel it was working Phq: 3 phq9: 13 History of Present Illness The patient is a 73-year-old female presenting with issues regarding depression, anxiety, and insomnia. The depression has been more difficult this year than before, and despite previous improvement in scores, it is harder for her to cope, particularly around the holidays. The patient experiences sadness, has a lack of motivation to get out of bed in the morning, and finds it hard to fall asleep at night. Previously, she was on a low dose of Lexapro, which did not provide significant improvement. Trazodone for sleep was initially effective, but is now less so. Recent addition of family interactions, such as outings with her grandson and participation in [employer] meetings, offer some social support. However, feelings of loneliness are exacerbated by restrictions on nighttime driving. Additional comorbidities include type 2 diabetes mellitus causing chronic kidney disease stage 3, managed with Lantus insulin and a sliding scale for blood sugars, BMI being elevated between 32.0-32.9, and a history of exogenous obesity. The patient reports difficulty with higher blood sugar levels when routine is altered, like during less physical activity periods. A recent A1C test showed an increase, but levels remain at 6.7%. She is not currently smoking. - Recent A1c was 6.7% indicating controlled blood sugar levels with room for improvement through increased physical activity. - Encouraged participation in social activities and restorationism as a means to improve mental health. - Recommended full dose of Trazodone for insomnia. - Consideration of Wellbutrin as an adjunct treatment for depression. Review of Systems PHQ Score Initial Depression Screen Score: 3 SCORE Detailed Depression Screen Score: 10 Total Depression Screen Score: 13 - Psychiatric: Reports anxiety and depressive symptoms, denies current suicidal thoughts. - Sleep: Reports insomnia, difficulty initiating sleep. Physical Exam Vitals & Measurements T: 36.9 ???C(Temporal Artery) HR: 78(Peripheral) RR: 16 BP: 122/70 SpO2: 98% HT: 62 in HT: 158 cm WT: 79.9 kg WT: 176.149 lb BMI: 32.01 General: alert, no acute distress ENMT: oral mucosa moist Cardiovascular: Regular rate and rhythm, normal peripheral perfusion Respiratory: Lungs clear to auscultation, respirations non labored Extremities: no deformity, no trauma Neurological: oriented x 4, level of consciousness appropriate for age, CN II-XII intact, motor strength equal & normal bilaterally, speech normal Abdomen: Soft, Non-tender, Non-distended, + Bowel sounds Assessment/Plan 1. Depression (F32.A) Continue treatment with modifications discussed including potentially adding Wellbutrin and maintaining social engagements.Discussed adjuvant therapies. Continue counseling. Follow up in 2 months. Ordered: buPROPion, 150 mg = 1 tab(s), Oral, q24hr, # 90 tab(s), Refills(s) 0, Pharmacy: [facility], 158, cm, 01/17/24 9:38:00 EST, Height/Length Dosing, 79.9, kg, 01/17/24 9:38:00 EST, Weight Dosing 2. Obesity (E66.811) Discuss continued weight management strategies and the benefits of physical activity. Ordered: buPROPion, 150 mg = 1 tab(s), Oral, q24hr, # 90 tab(s), Refills(s) 0, Pharmacy: [facility], 158, cm, 01/17/24 9:38:00 EST, Height/Length Dosing, 79.9, kg, 01/17/24 9:38:00 EST, Weight Dosing 3. BMI 32.0-32.9,adult (Z68.32: Body mass index [BMI] 32.0-32.9, adult) BMI education added. Ordered: buPROPion, 150 mg = 1 tab(s), Oral, q24hr, # 90 tab(s), Refills(s) 0, Pharmacy: [facility], 158, cm, 01/17/24 9:38:00 EST, Height/Length Dosing, 79.9, kg, 01/17/24 9:38:00 EST, Weight Dosing Body Mass Index (BMI) documented 3008F Current tobacco non-user 1036F Depression Screening Negative 3352F Depression Screening Positive 3354F Influenza immunization administered or previously received 4274F Most recent diastolic blood pressure <80 mm Hg 3078F Patient screen for fall risk: no falls in last year or 1 fall with no injury in last year 1101F Systolic BP <130 mm Hg (Most Recent) 3074F 4. Exogenous obesity (E66.09: Other obesity due to excess calories) Diet and exercise advised Ordered: buPROPion, 150 mg = 1 tab(s), Oral, q24hr, # 90 tab(s), Refills(s) 0, Pharmacy: [facility], 158, cm, 01/17/24 9:38:00 EST, Height/Length Dosing, 79.9, kg, 01/17/24 9:38:00 EST, Weight Dosing Body Mass Index (BMI) documented 3008F Current tobacco non-user 1036F Depression Screening Negative 3352F Depression Screening Positive 3354F Influenza immunization administered or previously received 4274F Most recent diastolic blood pressure <80 mm Hg 3078F (more content not included)... Normal [facility] Comment on above: Result Comment: Elec tronically Signed By: Mat JIMENEZ, Dewayne Lynn.br\Date and Time Signed: 01/17/24 10:17 EST Ambulatory Visit Summaryon 1 03-04-2023 Ambulatory Visit Summary Ambulatory Visit Summary OLIVA MCNULTY :1950 Visit Date:12/23/2023 Ambulatory Visit Instructions Your Diagnosis Encounter for annual general medical examination with abnormal findings in adult Type 2 diabetes mellitus with hypercholesterolemia Type 2 diabetes mellitus with stage 3 chronic kidney disease, DM type 2 causing CKD stage 3 Diabetic gastroparesis associated with type 2 diabetes mellitus Diabetic retinopathy Chronic kidney disease (CKD), stage III (moderate) Long-term insulin use Benign hypertension with chronic kidney disease, stage III Encounter for hepatitis C screening test for low risk patient Immunization due Benign essential HTN Hypercholesterolemia Breast cancer screening by mammogram 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 Your Care Team Attending Physician - Pilar Moreno Primary Care Physician - Dewayne Richey MD This Is Your Medications List Misc Prescription (Freestyle Sam 2 Flash Glucose Monitoring 14 Day System (Sensor)) Misc Prescription (Pen Napavine) amlodipine aspirin (aspirin 81 mg Oral EC Tab) escitalopram (Lexapro 5 mg oral tablet) insulin glargine (Lantus Solostar Pen 100 units/mL subcutaneous solution) insulin lispro (HumaLOG KwikPen 100 units/mL injectable solution) latanoprost ophthalmic (latanoprost Opth 0.005% Gunjan) losartan (losartan 100 mg Tab) nitroglycerin (NitroStat 0.4 mg Tab) rosuvastatin (rosuvastatin 20 mg Tab) sitagliptin (Januvia 100 mg Tab) trazodone (traZODONE 50 mg Tab) Procedures Performed Appendectomy, Arthroscopy, Cataracts, Cholecystectomy, Tonsillectomy and adenoidectomy. Discharge Vitals Heart Rate (Peripheral) 86 Respiratory Rate 14 Blood Pressure 138/70 Height 158 cm Height 62 in Weight 77.5 kg Weight 170.858 lb BMI 31.04 What to do next Scheduled Follow-Up Appointments Wednesday 10:00 AM EST With: Denia Ding Where: [facility] Wednesday 1:20 PM EST With: Where: [address] [address]- Wednesday 10:00 AM EST With: Mat JIMENEZ, Dewayne Zhao Where: [address] [address]- Wednesday 1:00 PM EST With: Where: [address] [address]- You Need to Complete the Following HCV Antibody RFX to Quant PCR, Blood, Routine collect, 12/23/23, Order for future visit, Lab Collect, Encounter for hepatitis C screening test for low risk patient, Print Label By Order Location HgbA1c, Blood, Routine collect, 12/23/23, Order for future visit, Lab Collect, Type 2 diabetes mellitus with hypercholesterolemia, Print Label By Order Location Medications What How Much When Why Instructions Unchanged amlodipine 5 Milligram By Mouth Every day Unchanged aspirin (aspirin 81 mg Oral EC Tab) 1 Tablets By Mouth Every day Unchanged escitalopram (Lexapro 5 mg oral tablet) 1 Tablets By Mouth Every day Unchanged insulin glargine (Lantus Solostar Pen 100 units/ mL subcutaneous solution) See instructions INJECT SUBCUTANEOUSLY 15 UNITS ONCE DAILY AT BEDTIME Unchanged insulin lispro (HumaLOG KwikPen 100 units/ mL injectable solution) See instructions INJECT SUBCUTANEOUSLY BEFORE MEALS & AT BEDTIME COVERAGE 150-200 2U, 201-250 4U, 251-300 6U. 301-350 8U. 351-400 10U WITH CARB COVERAGE Unchanged latanoprost ophthalmic (latanoprost Opth 0.005% Gunjan) 1 Drops INSERT 1 drop IN BOTH EYES AT BEDTIME Unchanged losartan (losartan 100 mg Tab) See instructions TAKE 1 TABLET BY MOUTH DAILY Unchanged Misc Prescription (Freestyle Sam 2 Flash Glucose Monitoring 14 Day System (Sensor)) See instructions Osteopenia Long-term insulin use DM type 2 causing ESRD Freestyle Sam 2 Flash Glucose Monitoring 14 Day System (Sensor). Replace sensor every 14 days. Unchanged Misc Prescription (Pen Napavine) See instructions To be used with admin. of insulin QID. Dx: E11.22 1ea equals 1box Unchanged nitroglycerin (NitroStat 0.4 mg Tab) See instructions use as needed for chest pain Unchanged rosuvastatin (rosuvastatin 20 mg Tab) 1 Tablets By Mouth Every day Unchanged sitagliptin (Januvia 100 mg Tab) See instructions TAKE 1 TABLET BY MOUTH DAILY Unchanged trazodone (traZODONE 50 mg Tab) See instructions TAKE ONE-HALF TABLET BY MOUTH ONCE DAILY AT BEDTIME Medications and Immunizations Administered Given Fluzone High-Dose PF Prefilled Syringe , 0.5 mL, IntraMuscular. For: Immunization due influenza virus vaccine, inactivated, (more content not included)... Normal [facility] Family Medicine Office/Clini c Noteon 01-03-2024 Family Medicine Office/Clinic Note Family Medicine Office/Clinic Note Chief Complaint Subsequent Medicare Wellness History of Present Illness Covid-19, MERS, Ebola Screen *Contact With Person [...] Airborne, Droplet Precautions for MERS/COVID-19 : N/A Demi Amaya - 12/23/2023 13:12 EST Medicare/Medicaid Summary Chief Complaint : Subsequent Medicare Wellness Patient Counseled : Nutrition, Physical activity, Elevated BMI Height/Length Measured : 158 cm(Converted to: 5 ft 2 in, 62.20 in) Weight Measured : 77.5 kg(Converted to: 170 lb 14 Ounces, 170.858 lb) Body Mass Index Measured : 31.04 kg/m2 Height in Inches : 62 in Weight in Pounds : 170.858 lb Systolic Blood Pressure : 138 mmHg Diastolic Blood Pressure : 70 mmHg Blood Pressure Location : Right arm Blood Pressure Position : Sitting O2 Sat Resting/Exertion Alpha : Resting Peripheral Pulse Rate : 86 bpm Respiratory Rate : 14 br/min SpO2 : 99 % Pain Present : No actual or suspected pain Demi Amaya - 12/23/2023 13:12 EST Hearing and Vision Screening FT FT Whisper Test Comments : no hearing deficits Vision Screen Comments : wears corrective lens. Dr. Cui yearly. Demi Amaya - 12/23/2023 13:12 EST Advance Directive FT Advance Directive : Yes Type of Advance Directive : Living will, Medical durable power of real estate attorney Location of Advance Directive : Scanned into EMR Organ Donation Consent : Yes Demi Amaya - 12/23/2023 13:12 EST Procedures / Surgeries FT - Procedure History (As Of: 12/23/2023 13:35:14 EST) Anesthesia Minutes: 0 ; Procedure Name: Cholecystectomy ; Procedure Minutes: 0 ; Last Reviewed Dt/Tm: 12/23/2023 13:18:57 EST Anesthesia Minutes: 0 ; Procedure Name: Cataracts ; Procedure Minutes: 0 ; Last Reviewed Dt/Tm: 12/23/2023 13:18:57 EST Anesthesia Minutes: 0 ; Procedure Name: Appendectomy ; Procedure Minutes: 0 ; Last Reviewed Dt/Tm: 12/23/2023 13:18:57 EST Anesthesia Minutes: 0 ; Procedure Name: Tonsillectomy and adenoidectomy ; Procedure Minutes: 0 ; Last Reviewed Dt/Tm: 12/23/2023 13:18:57 EST Anesthesia Minutes: 0 ; Procedure Name: Arthroscopy ; Procedure Minutes: 0 ; Comments: 05/25/2022 14:14 EDT - Samantha FITCH, Ivonne L left knee ; Last Reviewed Dt/Tm: 12/23/2023 13:18:57 EST Family History Family History (As Of: 12/23/2023 13:35:14 EST) Negative History Medicare/Medicaid Social History FT Social History (As Of: 12/23/2023 13:35:14 EST) Alcohol: Denies Alcohol Use Never Comments: 12/23/2023 13:19 - Demi Amaya: denies use. 12/21/2022 12:57 - Jimy Mueller: denies (Last Updated: 12/23/2023 13:19:46 EST by Demi Amaya) Tobacco: Denies Tobacco Use Never (less than 100 in lifetime) Tobacco Use:. Comments: 12/23/2023 13:19 - Demi Amaya: denies use. 12/21/2022 12:57 - Jimy Mueller: never a smoker (Last Updated: 12/23/2023 13:19:59 EST by Demi Amaya) Substance Abuse: Denies Substance Abuse Comments: 12/23/2023 13:20 - Demi Amaya: denies use. (Last Updated: 12/23/2023 13:20:20 EST by Demi Amaya) Health Risk Assessment FT HRA little interest or pleasure? : Yes HRA down, depressed, or hopeless? : Yes Hazards in your house? : No Fall Risk Past Year : No Worried About Falling : No Someone Helps You in the [...] emotional health limit social act? : Slightly Demi Amaya - 12/23/2023 13:12 EST Misc Health Risks Grid Sexual problems : Never Trouble eating well : Never Teeth or denture problems : Never Problems using the telephone : Never Demi Amaya - 12/23/2023 13:12 EST Confident you control health problems : Very confident Difficulties driving your car? : Sometimes Seatbelts : I always fasten my seat belt Demi Amaya - 12/23/2023 13:12 EST Depression Screening Little Interest, Pleasure in Activities (ref) : More than half the days Feeling Down, Depressed, Hopeless : More than half the days Initial Depression Screening Score : 4 SCORE Depression Screening Result : Positive Depression Screening Result Interp : Yes Demi Amaya - 12/23/2023 13:12 EST FT PHQ9 (Positive Screen) Trouble (more content not included)... Normal [facility] Comment on above: Result Comment: Elec tronically Signed By: Dewayne Richey MD\.br\Date and Time Signed: 01/03/24 15:07 EST\.br\Electronically Co-Signed By: Demi Amaya\Date and Time Co-Signed: 12/23/23 16:47 EST .Interpretation:on HCV Ab IA Ql Comment Invalid Interpretation Code [facility] Comment on above: Result Comment: Not infected with HCV unless early or acute infection is suspected (which may be delayed in an immunocompromised individual), or other evidence exists to indicate HCV infection. Performed at: [facility] [id number] PhD Tito Clark Performed By: #### 2 [id number] #### [facility] [address] [place] [address] HCV Antibody RFX to Quant PC Marcus 01-02-2024 HCV IgG IA Ql Non-Reactive Invalid Interpretation Code Non Reactive [facility] Comment on above: Result Comment: Perf ormed at: [employer] [address] [id number] PhD Tito Clark Performed By: #### 2 [id number] #### [facility] [address] [place] [address] CHEMISTRYOrdered By: Kendy Fontaine on 12-31-2023 HbA1c (Bld) [Mass fraction] 6.7 % High <=5.9% [facility] [employer] [id number] 12-31-2023 HbA1c (Bld) [Mass fraction] 6.7 % High <=5.9 [facility] Comment on above: Performed By: #### 7 [id number] #### [facility] [address] [place] [address] Ambulatory Visit Summaryon 0 09-27-2023 Ambulatory Visit Summary Ambulatory Visit Summary OLIVA MCNULTY :1950 Visit Date:09/27/2023 Ambulatory Visit Instructions Your Diagnosis Benign essential HTN DM type 2 causing CKD stage 3 Hypercholesterolemia Insomnia Adjustment disorder with disturbance of emotion GERD (gastroesophageal reflux disease) BMI 31.0-31.9,adult Class 1 obesity due to excess calories in adult Nonsmoker Chronic kidney disease, stage 3 unspecified Your Care Team Attending Physician - Mat JIMENEZ, Dewayne Zhao Primary Care Physician - Dewayne Richey MD This Is Your Medications List escitalopram (Lexapro 5 mg oral tablet) Contact prescribing physician if questions or concerns Misc Prescription (Freestyle Sam 2 Flash Glucose Monitoring 14 Day System (Sensor)) Misc Prescription (Pen Napavine) Misc Prescription (Pen Napavine) amlodipine aspirin (aspirin 81 mg Oral EC [...] 10:00 AM EDT With: Denia Ding Where: [facility] Wednesday 10:00 AM EDT With: Denia Ding Where: [facility] 2023 1:00 PM EST With: Where: [address] [id number]- Wednesday 10:00 AM EST With: Dewayne Richey MD Where: [address] [id number]- Medications What How Much When Why Instructions New escitalopram (Lexapro 5 mg oral tablet) 1 Tablets By Mouth Every day Pickup at [facility] Unchanged amlodipine 5 Milligram By Mouth [...] questions or concerns Unchanged Misc Prescription (Pen Napavine) See instructions To be used with admin. of insulin QID. Dx: E11. 1ea equals 1box Contact prescribing physician if questions or concerns Unchanged Misc Prescription (Pen Napavine) See instructions To be used with admin. of insulin QID. Dx: E11. 1 EA equals 1box Contact prescribing physician [...] physician if questions or concerns Pharmacy Information [facility]: [address] [place], [place] [id number] [phone] Allergies No Known Medication Allergies Problems Ongoing - Any problem that you are currently receiving treatment for. Adjustmen (more content not included)... Normal [facility] CBC w/ Auto Diffon 4 Basophils/100 WBC (Bld) 0.9 % Normal 0.0-2.0 [facility] Comment on above: Performed By: #### 2 [id number] #### [facility] [address] [place] [address] Basophils/Leukocytes Auto (Bld) [Pure # fraction] 0.1 E9/L Normal 0.0-0.2 [facility] Comment on above: Performed By: #### 2 [id number] #### [facility] [address] [place] [address] Eosinophils (Bld) [#/Vol] 0.1 E9/L Normal 0.0-0.5 [facility] Comment on above: Performed By: #### 2 [id number] #### [facility] [address] [place] [address] Eosinophils/100 WBC (Bld) 1.2 % Normal 0.0-8.0 [facility] Comment on above: Performed By: #### 2 [id number] #### [facility] [address] [place] [address] Erythrocyte distribution width (RBC) [Ratio] 15.8 % High 10.9-14.2 [facility] Comment on above: Performed By: #### 2 [id number] #### [facility] [address] [place] [address] Hematocrit (Bld) [Volume fraction] 40.1 % Normal 34.0-46.0 [facility] Comment on above: Performed By: #### 2 [id number] #### [facility] [address] [place] [address] Hemoglobin (Bld) [Mass/Vol] 13.1 g/dL Normal 12.0-16.0 [facility] Comment on above: Performed By: #### 2 [id number] #### [facility] [address] [place] [address] Lymphocytes (Bld) [#/Vol] 1.9 E9/L Normal 1.0-4.0 [facility] Comment on above: Performed By: #### 2 [id number] #### [facility] [address] [place] [address] Lymphocytes/100 WBC (Bld) 24.3 % Normal 14.0-50.0 [facility] Comment on above: Performed By: #### 2 [id number] #### [facility] [address] [place] [address] MCH (RBC) [Entitic mass] 27.4 pg Normal 27.0-34.0 [facility] Comment on above: Performed By: #### 2 [id number] #### [facility] [address] [place] [address] MCHC (RBC) [Mass/Vol] 32.6 g/dL Normal 31.4-36.0 [facility] Comment on above: Performed By: #### 2 [id number] #### [facility] [address] [place] [address] MCV (RBC) [Entitic vol] 84.1 fL Normal 80.0-100.0 [facility] Comment on above: Performed By: #### 2 [id number] #### [facility] [address] [place] [address] Monocytes (Bld) [#/Vol] 0.6 E9/L Normal 0.2-1.0 [facility] Comment on above: Performed By: #### 2 [id number] #### [facility] [address] [place] [address] Neutrophils (Bld) [#/Vol] 5.2 E9/L Normal 2.0-7.5 [facility] Comment on above: Performed By: #### 2 [id number] #### [facility] [address] [place] [address] Neutrophils/100 WBC (Bld) 65.6 % Normal 36.0-75.0 [facility] Comment on above: Performed By: #### 2 [id number] #### [facility] [address] [place] [address] Platelet mean volume (Bld) [Entitic vol] 11.0 fL High 6.4-10.8 [facility] Comment on above: Performed By: #### 2 [id number] #### [facility] [address] [place] [address] Platelets (Bld) [#/Vol] 174.0 E9/L Normal 150.0-500.0 [facility] Comment on above: Performed By: #### 2 [id number] #### [facility] [address] [place] [address] RBC (Bld) [#/Vol] 4.8 E12/L Normal 4.3-5.9 [facility] Comment on above: Performed By: #### 2 [id number] #### [facility] [address] [place] [address] WBC corrected for nucl RBC Auto (Bld) [#/Vol] 8.0 E9/L Normal 4.0-11.0 [facility] Comment on above: Performed By: #### 2 [id number] #### [facility] [address] [place] [address] CHEMISTRYOrdered By: SYSTEM SYSTEM on 09-27-2023 Albumin [...] (Bld) [Mass fraction] 6.0 % High <=5.9% [facility] ChemAutoSS CMPon 09-27-2023 Albumin [Mass/Vol] 4.1 g/dL Normal 3.3-5.0 [facility] Comment on above: Performed By: #### 2 [id number] #### [facility] [address] [place] [address] Albumin/Globulin (S) [Mass conc ratio] 1.4 Normal 1.1-2.2 [facility] Comment on above: Performed By: #### 2 [id number] #### [facility] [address] [place] [address] ALP [Catalytic activity/Vol] 56 Int._Unit/L Normal 21-98 [facility] Comment on above: Performed By: #### 2 [id number] #### [facility] [address] [place] [address] ALT No additional P-5'-P [Catalytic activity/Vol] 20 Int._Unit/L Normal 6-46 [facility] [facility] Comment on above: Performed By: #### 2 [id number] #### [facility] [address] [place] [address] Anion gap [Moles/Vol] 13 mmol/L Normal 6-16 [facility] Comment on above: Performed By: #### 2 [id number] #### [facility] [address] [place] [address] AST [Catalytic activity/Vol] 25 Int._Unit/L Normal 5-43 [facility] Comment on above: Performed By: #### 2 [id number] #### [facility] [address] [place] [address] Bilirubin [Mass/Vol] 0.5 mg/dL Normal 0.0-1.1 [facility] Comment on above: Performed By: #### 2 [id number] #### [facility] [address] [place] [address] Calcium [Mass/Vol] 10.2 mg/dL Normal 8.9-11.1 [facility] Comment on above: Performed By: #### 2 [id number] #### [facility] [address] [place] [address] Chloride [Moles/Vol] 101 mmol/L Normal 101-111 [facility] Comment on above: Performed By: #### 2 [id number] #### [facility] [address] [place] [address] CO2 [Moles/Vol] 26 mmol/L Normal 21-31 [facility] Comment on above: Performed By: #### 2 [id number] #### [facility] [address] [place] [address] Creatinine [Mass/Vol] 1.2 mg/dL Normal 0.5-1.3 [facility] Comment on above: Performed By: #### 2 [id number] #### [facility] [address] [place] [address] Globulin (S) [Mass/Vol] 2.9 g/dL Normal 1.4-4.0 [facility] Comment on above: Performed By: #### 2 [id number] #### [facility] [address] [place] [address] Glucose [Mass/Vol] 112 mg/dL Normal 55-199 [facility] Comment on above: Performed By: #### 2 [id number] #### [facility] [address] [place] [address] Potassium [Moles/Vol] 4.6 mmol/L Normal 3.5-5.3 [facility] Comment on above: Performed By: #### 2 [id number] #### [facility] [address] [place] [address] Protein [Mass/Vol] 7.0 g/dL Normal 6.0-7.8 [facility] Comment on above: Performed By: #### 2 [id number] #### [facility] [address] [place] [address] Sodium [Moles/Vol] 135 mmol/L Normal 135-145 [facility] Comment on above: Performed By: #### 2 [id number] #### [facility] [address] [place] [address] Urea nitrogen [Mass/Vol] 19 mg/dL Normal 5-21 [facility] Comment on above: Performed By: #### 2 [id number] #### [facility] [address] [place] [address] Urea nitrogen/Creatinine [Mass ratio] 16 No Units Normal 10-20 [facility] Comment on above: Performed By: #### 2 [id number] #### [facility] [address] [place] [address] Family Medicine Office/Clini c Noteon 09-27-2023 Family [...] (more content not included)... Normal [facility] Comment on above: Result Comment: Elec [...] Normal 4.0 - 11.0 E9/L Remisol Heme [id number] 09-27-2023 HbA1c (Bld) [Mass fraction] 6.0 % High <=5.9 [facility] Comment on above: Performed By: #### 7 [id number] #### [facility] [address] [place] [address] Lipid Panelon 09-27-2023 Cholesterol [Mass/Vol] 140 mg/dL Normal 120-200 [facility] Comment on above: Performed By: #### 2 [id number] #### [facility] [address] [place] [address] Cholesterol in HDL [Mass/Vol] 55 mg/dL Invalid Interpretation Code [facility] Comment on above: Result Comment: '>= 60 LOW RISK' '<= 40 HIGH RISK' Performed By: #### 2 [id number] #### [facility] [address] [place] [address] Cholesterol in LDL [Mass/Vol] 64 mg/dL Normal <=129 [facility] Comment on above: Performed By: #### 2 [id number] #### [facility] [address] [place] [address] Cholesterol in VLDL [Mass/Vol] 16 mg/dL Normal 7-40 [facility] Comment on above: Performed By: #### 2 [id number] #### [facility] [address] [place] [address] Triglyceride [Mass/Vol] 78 mg/dL Normal <=149 [facility] Comment on above: Performed By: #### 2 [id number] #### [facility] [address] [place] [address] U Microalbon 09-27-2023 Albumin DL <= 20 mg/L (U) [Mass/Vol] 6.5 mg/dL High 0.0-1.9 [facility] Comment on above: Performed By: #### 1 [id number] #### [facility] [address] [place] [address] U Protein/Creat Ratioon 09-08 Protein/Creatinine (U) [Ratio] 16.30 mg/gm Cr Normal .00-200.00 [facility] Comment on above: Performed By: #### 1 [id number] #### [facility] [address] [place] [address] U Creatinine 160.3 mg/dL Invalid Interpretation Code [facility] Comment on above: Performed By: #### 1 [id number] #### [facility] [address] [place] [address] Ur Total Protein 26.1 mg/dL Invalid Interpretation Code [facility] Comment on above: Performed By: #### 1 [id number] #### [facility] [address] [place] [address] eGFRon 09-27-2023 eGFR 47 mL/min/1.73 m2 Low >=59 [facility] Comment on above: Order Comment: Order added by Discern Expert. Performed By: #### 1 [id number] #### [facility] [address] [place] [address] Erythrocyte distribution wid th Auto (RBC) [Ratio]on 09-22-2023 Erythrocyte distribution width (RBC) [Ratio] 15.5 % High 11.0-15.0 [facility] Estimated glomerular filtrat ion rate (GFR) non- Americanon 09-22-2023 GFR/1.73 sq M.predicted among non-blacks MDRD (S/P/Bld) [Vol rate/Area] 51 mL/min/{1.73_m2} Low >=60 [facility] Globulin Calc (S) [Mass/Vol] on 09-22-2023 Globulin (S) [Mass/Vol] 3.3 g/dL [facility] Hematocrit Auto (Bld) [Volum e fraction]on 09-22-2023 Hematocrit (Bld) [Volume fraction] 40.3 % 36.0-48.0 [facility] Hemoglobin [Mass/volume] in Bloodon 09-22-2023 Hemoglobin (Bld) [Mass/Vol] 12.9 g/dL 12.0-16.0 [facility] Laboratory - Chemistry and C hemistry - challengeon 09-22-2023 Albumin [Mass/Vol] 3.8 g/dL 3.4-5.0 [facility] ALP [Catalytic activity/Vol] 63 U/L 46-116 [facility] ALT [Catalytic activity/Vol] 23 U/L 14-59 [facility] AST [Catalytic activity/Vol] 16 U/L 15-37 [facility] Bilirubin [Mass/Vol] 0.6 mg/dL 0.2-1.0 [facility] Calcium [Mass/Vol] 10.3 mg/dL High 8.5-10.1 [facility] Chloride [Moles/Vol] 102 mmol/L 98-107 [facility] CO2 [Moles/Vol] 30.1 mmol/L 21.0-32.0 [facility] Creatinine [Mass/Vol] 1.05 mg/dL High 0.55-1.02 [facility] GFR/1.73 sq M.predicted MDRD (S/P/Bld) [Vol rate/Area] mL/min/{1.73_m2} >=60 [facility] Glucose [Mass/Vol] 60 mg/dL Low 74-106 [facility] Magnesium [Mass/Vol] 1.8 mg/dL 1.8-2.4 [facility] Potassium [Moles/Vol] 4.2 mmol/L 3.5-5.1 [facility] Protein [Mass/Vol] 7.1 g/dL 6.4-8.2 [facility] Sodium [Moles/Vol] 137 mmol/L 136-145 [facility] Urate [Mass/Vol] 3.2 mg/dL 2.6-6.0 [facility] Urea nitrogen [Mass/Vol] 21.0 mg/dL High 7.0-18.0 [facility] Urea nitrogen/Creatinine [Mass ratio] 20.0 mg/mg [facility] - Urinalysison Protein (U) [Mass/Vol] 12.7 mg/dL High <=11.9 [facility] Leukocytes [#/volume] correc jeff for nucleated erythrocytes in Blood by Automated counon 09-22-2023 WBC corrected for nucl RBC Auto (Bld) [#/Vol] 8.5 10 3/uL 4.0-11.0 [facility] MCH Auto (RBC) [Entitic mass ]on 09-22-2023 MCH (RBC) [Entitic mass] 27.0 pg 26.7-34.0 [facility] MCHC Auto (RBC) [Mass/Vol]on 09-22-2023 MCHC (RBC) [Mass/Vol] 32.0 g/dL 29.9-35.2 [facility] MCV Auto (RBC) [Entitic vol] on 09-22-2023 MCV (RBC) [Entitic vol] 84.3 fL 81.0-99.0 [facility] No Panel Informationon 09-21 25-Hydroxy Vitamin D Total 56.6 ng/mL [facility] Comment on above: <20 ng/mL Vit D defi cient20-<30 ng/mL Vit D etihkxdgmruv01-571 ng/mL Vit D sufficient>100 ng/mL Potential Toxicity Parathyroid Hormone (Intact) 19 pg/mL 15-65 [facility] Comment on above: Performed at: [address] [id number] Director: Eduardo Francis PhD, Phone: [phone] Phosphorus Level 3.5 mg/dL 2.6-4.7 [facility] Urine Random Creatinine 86.39 mg/dL 20.00-300.00 [facility] Platelet mean volume Auto (B ld) [Entitic vol]on 09-22-2023 Platelet mean volume (Bld) [Entitic vol] 12.0 fL 9.5-13.5 [facility] Platelets Auto (Bld) [#/Vol] on 09-22-2023 Platelets (Bld) [#/Vol] 174 10 3/uL 150-450 [facility] RBC Auto (Bld) [#/Vol]on RBC (Bld) [#/Vol] 4.78 10 6/uL 4.20-5.40 [facility] Serum or plasma albumin/glob ulin mass ratioon 09-22-2023 Albumin/Globulin [Mass ratio] 1.2 {ratio} [facility] Serum or plasma anion gap de terminationon 09-22-2023 Anion gap [Moles/Vol] 9.1 mmol/L [facility] Urine protein/creatinine rat ioon 09-22-2023 Protein/Creatinine (U) [Ratio] 0.15 [facility] Ambulatory Visit Summaryon 0 07-20-2023 Ambulatory Visit Summary OLIVA MCNULTY :1950 Visit Date:07/20/2023 Ambulatory Visit Instructions Your Diagnosis BMI 31.0-31.9,adult Your Care Team Attending Physician - DOMINIC ORTEGA CNP Primary Care Physician - Mat JIMENEZ, Dewayne Zhao This Is Your Medications List Misc Prescription (Freestyle Sam 2 Flash Glucose Monitoring 14 Day System (Sensor)) Misc Prescription (Pen Napavine) Misc Prescription (Pen Napavine) amlodipine aspirin (aspirin 81 mg Oral EC [...] EDT With: Mat JIMENEZ, Dewayne Zhao Where: [place] [id number]- \.br\ Medications\.br \ What How Much When [...] 14 days. \.br\ Unchanged Misc Prescription (Pen Napavine) See instructions To be used with admin. of insulin QID. Dx: 1ea equals 1box \.br\ Unchanged Misc Prescription (Pen Napavine) See instructions To be used with admin. 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\.br\ Diabetic gastroparesis [...] choosing us for your care.\.br\ \.br\ [facility] Family Medicine Office/Clini c Noteon 07-20-2023 Family [...] available Patient Education Upper Respiratory Infection, Adult, Nkdi-vt-Nzff Problem List/Past Medical History Ongoing Adjustment disorder with disturbance of emotion Benign essential HTN Benign hypertension with chronic kidney disease, stage III BMI 31.0-31.9,adult Chronic kidney disease (CKD), stage III (moderate) 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 Normal [facility] Comment on above: Result Comment: Elec tronically Signed By: DOMINIC ORTEGA CNP\.demarcus\Date and Time Signed: 07/20/23 15:16 EDT Patient [...] to help relieve symptoms, such as: ? Nhrx-ksx-jsbvucs cold medicines. ? Medicines to reduce coughing [...] other clear broths. General instructions ? Take ayuz-kwb-kbazzsf and prescription medicines only as told by [...] cannot use soap and water, use hand water chemist. ? Avoid touching your mouth, face, eyes, [...] get better within 7?10 days. ? Take dedj-gaz-hbbbjvu and prescription medicines only as told by your doctor. This information is not intended to replace advice given to you by your health care (more content not included)... 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 Primary Care Physician - Dewayne Richey MD. This Is Your Medications List trazodone (traZODONE 50 mg Tab) Contact prescribing physician if questions or concerns Misc Prescription (Freestyle Sam 2 Flash Glucose Monitoring 14 Day System (Sensor)) Misc Prescription (Pen Napavine) Misc Prescription (Pen Napavine) amlodipine aspirin (aspirin 81 mg Oral EC [...] 1:00 PM EDT With: Denia Ding Where: [facility] Wednesday 10:00 AM EDT With: Dewayne Richey MD Where: [facility] Normal [address] [id number]- \.br\ Medications\.br \ What How Much When [...] or concerns \.br\ Unchanged Misc Prescription (Pen Napavine) See instructions To be used with admin. of insulin QID. Dx: 1ea equals 1box Contact prescribing physician if questions or concerns \.br\ Unchanged Misc Prescription (Pen Napavine) See instructions To be used with admin. 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 Long-term insulin use (Z79.4: penitentiary (current) use of insulin) - Diet and [...] Recent) 3074F 6. 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 Normal [facility] Comment on above: Result Comment: Elec tronically Signed By: Mat JIMENEZ, Dewayne Zhao\.br\Date and Time Signed: 06/29/23 10:38 EDT Consultation Noteon 05-04-19 Consultation Note [id number] [id number] Normal [facility] Ambulatory Visit Summaryon 0 03-30-2023 Ambulatory Visit Summary OLIVA MCNULTY :1950 Visit Date:03/30/2023 Ambulatory Visit Instructions Your [...] if questions or concerns Misc Prescription (Pen Napavine) Misc Prescription (Pen Napavine) amlodipine aspirin (aspirin 81 mg Oral EC [...] 11:00 AM EST With: Denia Ding Where: [facility] Wednesday 10:00 AM EDT With: Mat JIMENEZ, Dewayne Zhao Where: [facility] Invalid Interpretation Code [address] [place] [address]- \.br\ You Need to Complete the Following\.br\ HgbA1c, Blood, Routine collect, 03/30/23, Order for future visit, Lab Collect, DM type 2 causing CKD stage 3 [facility] CHEMISTRYOrdered By: Bertha Chávez on 03-30-2023 HbA1c (Bld) [Mass fraction] 6.4 % High <=5.9% [facility] Chem[employer] Family Medicine Office/Clini c Noteon 03-30-2023 [...] mart and foltanx [facility] [facility] a History of Present Illness Pt [...] bedtime), # 15 tab(s), Refills(s) 0, Pharmacy: [facility] #[id number], 158, cm, 03/30/23 10:02:00 EST, Height/Length Dosing, [...] bedtime), # 15 tab(s), Refills(s) 0, Pharmacy: [facility] #[id number], 158, cm, 03/30/23 10:02:00 EST, Height/Length Dosing, [...] bedtime), # 15 tab(s), Refills(s) 0, Pharmacy: [facility] #[id number], 158, cm, 03/30/23 10:02:00 EST, Height/Length Dosing, [...] bedtime), # 15 tab(s), Refills(s) 0, Pharmacy: [facility] #[id number], 158, cm, 03/30/23 10:02:00 EST, Height/Length Dosing, [...] 15 tab(s), Refills(s) 0, Pharmacy: [facility] #[id number], 158, cm, 03/30/23 10:02:00 EST, Height/Length Dosing, 82.6, kg, 03/30/23 10:02:00 EST, Weight Dosing HgbA1c 6. Insomnia (G47.00: Insomnia, unspecified) - Will try trazodone. Ordered: trazodone, 25 mg = 0.5 tab(s), Oral, Once a day (at bedtime), # 15 tab(s), Refills(s) 0, Pharmacy: [facility] #[id number], 158, cm, 03/30/23 10:02:00 EST, Height/Length Dosing, 82.6, kg, 03/30/23 10:02:00 EST, Weight Dosing Chronic kidney disease, stage 3 unspecified (N18.30: Chronic kidney disease, stage 3 unspecified) Orders: multivitamin, 1 tab(s), Oral, Daily, 90 tab(s), Refill(s) 0, [facility] #0 (more content not included)... Normal [facility] Comment on above: Result Comment: Elec tronically Signed By: Mat JIMENEZ, Dewayne Lynn.br\Date and Time Signed: 03/30/23 10:35 EST [id number] 03-30-2023 HbA1c (Bld) [Mass fraction] 6.4 % High <=5.9 [facility] Comment on above: Performed By: #### 7 [id number] ####[facility] [address] [place] [address] Patient Educationon 03-30-19 Patient Education Nutrition BMI [...] numbers. This can be done either in [place] or metric measurements. Note that charts and online BMI calculators are available to help you find your BMI quickly and easily without having to do these calculations yourself. To calculate your BMI in [place] measurements: 1. Measure your weight in [...] for Disease Control and Prevention: www.cdc.gov ? [place] Heart Association: www.heart.org ? National Heart, Lung, and Blood [place]: www.nhlbi.nih.gov Summary ? Body mass index (BMI) is a number that is calculated from a person's weight and height. ? BMI may help estimate how much of a person's weight is composed of fat. BMI can help identify those who may be at higher risk for certain medical problems. ? BMI can be measured using [place] measurements or metric measurements. ? BMI charts are used to identify whether you are underweight, normal weight, overweight, or obese. This information is not intended to replace advice given to you by your health care provider. Make sure you discuss any questions you have with your health care provider. Document Revised: 10/18/2019 Document Reviewed: 08/25/2019 [employer] Patient Education ? 2022 [employer] Normal [facility] GLYCOHEMOGLOBIN A1Con 2022 ADA RECOMMENDATION SEE BELOW Normal [facility] Comment on above: Result Comment: ADA RECOMMENDED LIMIT 4.0 - 6.0 ADA THERAPEUTIC TARGET < 7.0 ACTION SUGGESTED > 7.0 Performed By: #### A 1C #### [facility] [address], [place] [address] Dr. Adarsh Skinner Glucose [Mass/Vol] 146 mg/dL Normal [facility] Comment on above: Performed By: #### A 1C #### [facility] [address], [place] [address] Dr. Adarsh Skinner HbA1c (Bld) [Mass fraction] 6.7 % Critically high 4.5-6.2 [facility] Comment on above: Performed By: #### A 1C #### [facility] [address] [place], [place] [address] Dr. Adarsh Skinner Office Visit (Cardiology)on 06-19-2022 [...] 9 months - 1 year Chief Complaint JADE MCNULTY is being seen for a 6 [...] Lantus 100 UNIT/ML Subcutaneous SolutionINJECT SUBCUTANEOUSLY DIRECTED. B-Idzkparjmmgt-E1-B12 3-35-2 MG TABSTake 1 tablet daily Losartan [...] negative for complaint. Vitals Vital Signs Recorded: [id number] 10:14AM Heart Rate66, R Radial Ejnvccwm698, RUE, Sitting Ynglthwxv98, RUE, Sitting Height5 ft 2 in (more content not included)... Normal [facility] Tobacco Screening.on 023 Adult depression screening assessment Yes [facility] Work Phone: Adult depression screening assessment No [facility] [employer] 600 DO Work Phone: [phone] Adult depression screening assessment Mild (5-9) [facility] Work Phone: Fall risk assessment a) No falls within the last year [facility] [employer] 600 DO Work Phone: [phone] Tobacco use status CP b) No [facility] [employer] 600 DO Work Phone: [phone] Tobacco Screening. 1-Several days [facility] [employer] 600 DO Work Phone: [phone] Tobacco Screening. 3-Nearly every day [facility] [employer] 600 DO Work Phone: [phone] Tobacco Screening. 2-More than half the days [facility] [employer] 600 DO Work Phone: Tobacco Screening. 0-Not at all [facility] k 600 DO Work Phone: Tobacco Screening. Somewhat Difficult [facility] k 600 DO Work Phone: GLYCOHEMOGLOBIN A1Con 2022 ADA RECOMMENDATION SEE BELOW Normal [facility] Comment on above: Result Comment: ADA RECOMMENDED LIMIT 4.0 - 6.0 ADA THERAPEUTIC TARGET < 7.0 ACTION SUGGESTED > 7.0 Performed By: #### A 1C #### [facility] [address] [place] [address] [address] Adarsh Skinner Glucose [Mass/Vol] 148 mg/dL Normal [facility] Comment on above: Performed By: #### A 1C #### [facility] [address] [place] [address] [address] Adarsh Skinner HbA1c (Bld) [Mass fraction] 6.8 % Critically high 4.5-6.2 [facility] Comment on above: Performed By: #### A 1C #### [facility] [address] [place] [address] [address] Adarsh Skinner Cardiovasc Arrhythmia Result son 02-23-2022 Cardiovasc Arrhythmia Results Reason For Visit Reason for Visit: Holter Monitor: JADE is here for the application of a 24 hour Holter monitor. Ordering Physician: Dr. Zak Nguyen MD Diagnosis: pvc [facility] equipment agreement signed. JADE understands monitor is to be returned on: 02/24/22 Monitor number [id number] applied. Holter monitor returned and downloaded. Holter [...] Appointments Date/TimeProviderSpeci altySite 06/19/2022 10:10 Zak Moe [address] DO Signatures Electronically signed by : Fanny Zelaya L.P.N.; Feb 24 2022 11:03AM EST (Author) Electronically signed by : Zak Nguyen MD; Mar 05 2022 11:58AM EST (Author) Normal [facility] Office Visit (Cardiology)on 01-19-2022 Follow-up visit Diagnoses/Problems [...] in adult Healthy Weight Tips; Status:Complete; Done: [id number] Some eating tips that can help you lose weight.; Status:Complete; Done: [id number] PVC's (premature ventricular contractions) IO Holter Monitor up to 48 Hrs; Status:Complete; Done: [id number] SocHx: Never smoker Tobacco Use Screening; Status:Complete; Done: [id number] Patient Instructions Please bring all medicines, vitamins, [...] Follow up in 6 months Chief Complaint JADE MCNULTY is being seen for a 4-6 [...] Lantus 100 UNIT/ML Subcutaneous SolutionINJECT SUBCUTANEOUSLY DIRECTED. X-Ghuwwzmmhnbu-P1-B12 3-35-2 MG Oral TabletTake 1 tablet daily [...] have been (more content not included)... Normal [facility] Tobacco Screening.on 022 Fall risk assessment a) No falls within the last year [facility] [employer] [facility] DO Work Phone: Tobacco use status CP b) No [facility] DO Work Phone: CBC AUTO DIFFon 01-07-2022 BASO # 0.1 103/ul Normal 0.0-0.1 [facility] Comment on above: Performed By: #### C BC #### [facility] [address] [place] [address] Dr. Adarsh Skinner Basophils/100 WBC (Bld) 0.7 % Normal 0.2-2.0 [facility] Comment on above: Performed By: #### C BC #### [facility] [address] [place] [address] Dr. Adarsh Skinner EO # 0.2 103/ul Normal 0.0-0.7 [facility] Comment on above: Performed By: #### C BC #### [facility] [address] [place] [address] Dr. Adarsh Skinner Eosinophils/100 WBC (Bld) 2.0 % Normal 0.9-7.0 [facility] Comment on above: Performed By: #### C BC #### [facility] [address] [place] [address] Dr. Adarsh Skinner Erythrocyte distribution width (RBC) [Ratio] 15.9 % Critically high 11.0-15.0 [facility] Comment on above: Performed By: #### C BC #### [facility] [address] [place] [address] Dr. Adarsh Skinner Hematocrit (Bld) [Volume fraction] 41.7 % Normal 36.0-48.0 [facility] Comment on above: Performed By: #### C BC #### [facility] [address] [place] [address] Dr. Adarsh Skinner Hemoglobin (Bld) [Mass/Vol] 13.2 g/dL Normal 12.0-16.0 [facility] Comment on above: Performed By: #### C BC #### [facility] [address] [place] [address] Dr. Adarsh Skinner IG # 0.03 10e3/ul Normal 0.00-0.03 [facility] Comment on above: Performed By: #### C BC #### [facility] [address] [place] [address] Dr. Adarsh Skinner IG % 0.3 % Normal 0.0-0.5 [facility] Comment on above: Performed By: #### C BC #### [facility] [address] [place] [address] Dr. Adarsh Skinner LYMPH # 1.9 103/ul Normal 1.2-3.8 [facility] Comment on above: Performed By: #### C BC #### [facility] [address] [place] [address] Dr. Adarsh Skinner Lymphocytes/100 WBC (Bld) 20.6 % Normal 20.5-60.0 [facility] Comment on above: Performed By: #### C BC #### [facility] [address] [place] [address] Dr. Adarsh Skinner MANUAL DIFF REQ NO Normal [facility] Comment on above: Performed By: #### C BC #### [facility] [address] [place] [address] Dr. Adarsh Skinner MCH (RBC) [Entitic mass] 26.8 pg Normal 26.7-34.0 [facility] Comment on above: Performed By: #### C BC #### [facility] [address] [place] [address] Dr. Adarsh Skinner MCHC (RBC) [Mass/Vol] 31.7 g/dL Normal 29.9-35.2 [facility] Comment on above: Performed By: #### C BC #### [facility] [address] [place] [address] Dr. Adarsh Skinner MCV (RBC) [Entitic vol] 84.8 fL Normal 81.0-99.0 [facility] Comment on above: Performed By: #### C BC #### [facility] [address] [place] [address] Dr. Adarsh Skinner MONO # 0.7 103/ul Normal 0.3-0.8 [facility] Comment on above: Performed By: #### C BC #### [facility] [address] [place] [address] Dr. Adarsh Skinner Monocytes/100 WBC (Bld) 7.2 % Normal 1.7-12.0 [facility] Comment on above: Performed By: #### C BC #### [facility] [address] [place] [address] Dr. Adarsh Skinner NEUT # 6.4 103/ul Normal 1.4-6.5 [facility] Comment on above: Performed By: #### C BC #### [facility] [address] [place] [address] Dr. Adarsh Skinner Neutrophils/100 WBC (Bld) 69.2 % Normal 43.0-75.0 [facility] Comment on above: Performed By: #### C BC #### [facility] [address] [place] [address] Dr. Adarsh Skinner Platelet mean volume (Bld) [Entitic vol] 12.2 fL Normal 9.5-13.5 [facility] Comment on above: Performed By: #### C BC #### [facility] [address] [address] [address] Adarsh Skinner PLT 217 103/ul Normal 150-450 [facility] Comment on above: Performed By: #### C BC #### [facility] [address] [address] [address] Adarsh Skinner RBC 4.92 106/ul Normal 4.20-5.40 [facility] Comment on above: Performed By: #### C BC #### [facility] [address] [address] [address] Adarsh Skinner WBC 9.2 103/ul Normal 4.0-11.0 [facility] Comment on above: Performed By: #### C BC #### [facility] [address] [address] [address] Adarsh Skinner GLYCOHEMOGLOBIN A1Con 2021 ADA RECOMMENDATION SEE BELOW Normal [facility] Comment on above: Result Comment: ADA RECOMMENDED LIMIT 4.0 - 6.0 ADA THERAPEUTIC TARGET < 7.0 ACTION SUGGESTED > 7.0 Performed By: #### A 1C ####[facility] [id number] [address]Dr. Adarsh Skinner Glucose [Mass/Vol] 143 mg/dL Normal [facility] Comment on above: Performed By: #### A 1C ####[facility] [id number] [address]Dr. Adarsh Skinner HbA1c (Bld) [Mass fraction] 6.6 % Critically high 4.5-6.2 [facility] Comment on above: Performed By: #### A 1C ####[facility] [id number] [address]Dr. Adarsh Skinner LIPID PROFILEon 01-07-2022 CHOL-HDL RATIO NORM SEE BELOW Normal [facility] Comment on above: Result Comment: 3.3 - 4.4 LOW RISK 4.4 - 7.1 AVERAGE RISK 7.1 - 11.0 MODERATE RISK >11.0 HIGH RISK Performed By: #### C MP, LIPID #### [facility] [address] [address] [address] Adarsh Skinner Cholesterol [Mass/Vol] 121 mg/dL Normal <=200 [facility] Comment on above: Performed By: #### C MP, LIPID #### [facility] [address] [address] [address] Adarsh Skinner Cholesterol in HDL [Mass/Vol] 55 mg/dL Normal 40-60 [facility] Comment on above: Performed By: #### C MP, LIPID #### [facility] [address] [address] [address] Adarsh Skinner Cholesterol in LDL [Mass/Vol] 50.8 mg/dL Normal [facility] Comment on above: Performed By: #### C MP, LIPID #### [facility] [address] [place] [address] Dr. Adarsh Skinner Cholesterol.total/Ch olesterol in HDL [Mass ratio] 2.2 {ratio} Normal [facility] Comment on above: Performed By: #### C MP, LIPID #### [facility] [address] [address] [address] Adarsh Skinner HDL NORMAL > or = 60 mg/dl - LO W CARDIOVASCULAR RISK <40 mg/dl - HIGH CARDIOVASCULAR RISK Normal [facility] Comment on above: Performed By: #### C MP, LIPID #### [facility] [address] [address] [address] Adarsh Skinner LDL CALC NORMAL SEE BELOW Normal [facility] Comment on above: Result Comment: <100 mg/dl OPTIMAL 100 - 129 mg/dl NEAR OR ABOVE OPTIMAL 130 - 159 mg/dl BORDERLINE HIGH 160 - 189 mg/dl HIGH >190 mg/dl VERY HIGH Performed By: #### C MP, LIPID #### [facility] [address] [address] [address] Adarsh Skinner Triglyceride [Mass/Vol] 76 mg/dL Normal <=150 [facility] Comment on above: Performed By: #### C MP, LIPID #### [facility] [address] [address] [address] Adarsh Skinner VLDL CALC 15.2 mg/dL Normal [facility] Comment on above: Performed By: #### C MP, LIPID #### [facility] [address] [place] [address] Dr. Adarsh Skinner PROF 14(COMP METB)on 022 Albumin [Mass/Vol] 3.6 g/dL Normal 3.4-5.0 [facility] Comment on above: Performed By: #### C MP, LIPID #### [facility] [address] [place] [address] Dr. Adarsh Skinner Albumin/Globulin [Mass ratio] 1.1 {ratio} Normal [facility] Comment on above: Performed By: #### C MP, LIPID #### [facility] [address] [place] [address] Dr. Adarsh Skinner ALP [Catalytic activity/Vol] 57 U/L Normal 46-116 [facility] Comment on above: Performed By: #### C MP, LIPID #### [facility] [address] [place] [address] Dr. Adarsh Skinner ALT [Catalytic activity/Vol] 23 U/L Normal 14-59 [facility] Comment on above: Performed By: #### C MP, LIPID #### [facility] [address] [place] [address] Dr. Adarsh Skinner Anion gap [Moles/Vol] 14.7 mmol/L Normal [facility] Comment on above: Performed By: #### C MP, LIPID #### [facility] [address] [place] [address] Dr. Adarsh Skinner AST [Catalytic activity/Vol] 29 U/L Normal 15-37 [facility] Comment on above: Performed By: #### C MP, LIPID #### [facility] [address] [place] [address] Dr. Adarsh Skinner Bilirubin [Mass/Vol] 0.8 mg/dL Normal 0.2-1.0 [facility] Comment on above: Performed By: #### C MP, LIPID #### [facility] [address] [place] [address] Dr. Adarsh Skinner Calcium [Mass/Vol] 10.2 mg/dL Critically high 8.5-10.1 [facility] Comment on above: Performed By: #### C MP, LIPID #### [facility] [address] [place] [address] Dr. Adarsh Skinner Chloride [Moles/Vol] 104 mmol/L Normal 98-107 [facility] Comment on above: Performed By: #### C MP, LIPID #### [facility] [address] [place] [address] Dr. Adarsh Skinner CO2 [Moles/Vol] 25.0 mmol/L Normal 21.0-32.0 [facility] Comment on above: Performed By: #### C MP, LIPID #### [facility] [address] [place] [address] Dr. Adarsh Skinner Creatinine [Mass/Vol] 1.32 mg/dL Critically high 0.55-1.02 [facility] Comment on above: Performed By: #### C MP, LIPID #### [facility] [address] [place] [address] Dr. Adarsh Skinner EGFR-AF TURKISH 48 mL/min/1.73m2 Critically low >=60 [facility] Comment on above: Performed By: #### C MP, LIPID #### [facility] [address] [place] [address] Dr. Adarsh Skinner EGFR-NON AF TURKISH 39 mL/min/1.73m2 Critically low >=60 [facility] Comment on above: Performed By: #### C MP, LIPID #### [facility] [address] [place] [address] Dr. Adarsh Skinner Globulin (S) [Mass/Vol] 3.4 g/dL Normal [facility] Comment on above: Performed By: #### C MP, LIPID #### [facility] [address] [place] [address] Dr. Adarsh Skinner Glucose [Mass/Vol] 177 mg/dL Critically high 74-106 [facility] Comment on above: Performed By: #### C MP, LIPID #### [facility] [address] [place] [address] Dr. Adarsh Skinner Potassium [Moles/Vol] 4.7 mmol/L Normal 3.5-5.1 [facility] Comment on above: Performed By: #### C MP, LIPID #### [facility] [address] [address] [address] Adarsh Skinner Protein [Mass/Vol] 7.0 g/dL Normal 6.4-8.2 [facility] Comment on above: Performed By: #### C MP, LIPID #### [facility] [address] [address] [address] Adarsh Skinner Sodium [Moles/Vol] 139 mmol/L Normal 136-145 [facility] Comment on above: Performed By: #### C MP, LIPID #### [facility] [address] [place] [address] Dr. Adarsh Skinner Urea nitrogen [Mass/Vol] 20.0 mg/dL Critically high 7.0-18.0 [facility] Comment on above: Performed By: #### C MP, LIPID #### [facility] [address] [address] [address] Adarsh Skinner Urea nitrogen/Creatinine [Mass ratio] 15.2 mg/mg Normal [facility] Comment on above: Performed By: #### C MP, LIPID #### [facility] [address] [place] [address] Dr. Adarsh Skinner Tobacco Screening.on 022 Fall risk assessment a) No falls within the last year [facility] 600 DO Work Phone: Tobacco use status [facility] b) No [facility] DO Work Phone: MG MAMM SCREEN 3D GILSON CADon 12-01-2021 MG MAMM SCREEN 3D GILSON CAD Patient: JADE MCNULTY Exam Date: 12/01/2021 : 1950 Gender:F Ordering : DR DOMONIQUE HATFIELD . Admission #: [id number] Family : Order #: [id number] CLICK HERE TO VIEW EXAM RADIOLOGY REPORT [...] Treatments None Family Cancers None LOCATION: [facility] BREAST COMPOSITION: Scattered areas fibroglandular density. FINDINGS: [...] Kendall MD on 12/01/2021 at 11:22 Normal [facility] GLYCOHEMOGLOBIN A1Con 2021 ADA RECOMMENDATION SEE BELOW Normal [facility] Comment on above: Result Comment: ADA RECOMMENDED LIMIT 4.0 - 6.0 ADA THERAPEUTIC TARGET < 7.0 ACTION SUGGESTED > 7.0 Performed By: #### A 1C #### [facility] [address] [address] [address] Adarsh Skinner Glucose [Mass/Vol] 154 mg/dL Normal [facility] Comment on above: Performed By: #### A 1C #### [facility] [address] [address] [address] Adarsh Skinner HbA1c (Bld) [Mass fraction] 7.0 % Critically high 4.5-6.2 [facility] Comment on above: Performed By: #### A 1C #### [facility] [address] [address] [address] Adarsh Skinner Tobacco Screening.on 022 Fall risk assessment a) No falls within the last year [facility] [address] DO Work Phone: Tobacco use status [facility] b) No [facility] 600 DO Work Phone: MICROALBUMIN, RAND URon 07-0 2-2022 mALB 17.9 mg/L Normal <=30.0 [facility] Comment on above: Performed By: #### M ALBR #### [facility] [address] [address] [address] Adarsh Skinner PROF CHEM 8 (BAS METB)on Anion gap [Moles/Vol] 20.0 mmol/L Normal [facility] Comment on above: Performed By: #### B MP #### [facility] [address] [place] [address] Dr. Adarsh Skinner Calcium [Mass/Vol] 9.6 mg/dL Normal 8.5-10.1 [facility] Comment on above: Performed By: #### B MP #### [facility] [address] [place] [address] Dr. Adarsh Skinner Chloride [Moles/Vol] 106 mmol/L Normal 98-107 [facility] Comment on above: Performed By: #### B MP #### [facility] [address] [address] [address] Adarsh Skinner CO2 [Moles/Vol] 17.4 mmol/L Critically low 21.0-32.0 [facility] Comment on above: Performed By: #### B MP #### [facility] [address] [place] [address] Dr. Adarsh Skinner Creatinine [Mass/Vol] 1.28 mg/dL Critically high 0.55-1.02 [facility] Comment on above: Performed By: #### B MP #### [facility] [address] [place] [address] Dr. Adarsh Skinner EGFR-AF TURKISH 50 mL/min/1.73m2 Critically low >=60 [facility] Comment on above: Performed By: #### B MP #### [facility] [address] [place] [address] Dr. Adarsh Skinner EGFR-NON AF TURKISH 41 mL/min/1.73m2 Critically low >=60 [facility] Comment on above: Performed By: #### B MP #### [facility] [address] [address] [address] Adarsh Skinner Glucose [Mass/Vol] 50 mg/dL Critically low 74-106 [facility] Comment on above: Performed By: #### B MP #### [facility] [address] [address] [address] Adarhs Skinner Potassium [Moles/Vol] 4.3 mmol/L Normal 3.5-5.1 [facility] Comment on above: Performed By: #### B MP #### [facility] [address] [address] [address] Adarsh Skinner Sodium [Moles/Vol] 141 mmol/L Normal 136-145 [facility] Comment on above: Performed By: #### B MP #### [facility] [address] [address] [address] Adarsh Skinner Urea nitrogen [Mass/Vol] 17.0 mg/dL Normal 7.0-18.0 [facility] Comment on above: Performed By: #### B MP #### [facility] [address] [address] [address] Adarsh Skinner Urea nitrogen/Creatinine [Mass ratio] 13.2 mg/mg Normal [facility] Comment on above: Performed By: #### B MP #### [facility] [address] [address] [address] Adarsh Skinner PHQ-2 VITALSon 07-22-2021 Adult depression screening assessment Yes [facility] [place] [address] DO Work Phone: [phone] Adult depression screening assessment No [facility] [place] [address] DO Work Phone: [phone] PHQ-2 VITALS 0-Not at all [facility] [address] DO Work Phone: [phone] PHQ-2 VITALS 1-Several days [facility] [place] [address] DO Work Phone: [phone] PHQ-2 VITALS 3-Nearly every day [facility] [address] DO Work Phone: [phone] PHQ-2 VITALS Not difficult at all [facility] [address] DO Work Phone: Tobacco Screening.on 022 Fall risk assessment b) One or more fall s in the last year [facility] DO Work Phone: Tobacco use status [facility] b) No [facility] DO Work Phone: NM MYOCARDIAL PERFUSION MULT I SPECTon 07-02-2021 NM MYOCARDIAL PERFUSION MULTI SPECT Patient Info Name: JADE MCNULTY Age: 71 years : 1950 Gender: Female Ht: 157 cm Wt: 98 kg BSA: 2.13 m2 Exam Date: 07/02/2021 12:11 PM Patient Status: Inpatient Exam Type: NM MYOCARDIAL PERFUSION MULTI SPECT Study Info Indications - CAD screening, intermediate CAD risk, not treadmill candidate Attending Physician: Sierra Jc [id number] Primary Nurse: Violet Hope RN Secondary Nurse: [...] infusion. LEXISC[employer]. Radiopharmaceutical: Tc-99m Sestamibi Camera Used: Hylete Radiopharmaceutical: Tc-99m Sestamibi Camera Used: Hylete Image Protocol Protocol: Rest/Stress 1 Day Rest [...] PM Dict (more content not included)... Normal [facility] Comment on above: Order Comment: Injur y/Trauma or Illness?:Illness/Other How long have you had these symptoms (acute/chronic)?:Acute Reason for exam?:CAD screening Type of Exam?:Ongoing Additional signs and symptoms?:no ECHOCARDIOGRAM COMPLETEon ECHOCARDIOGRAM COMPLETE Patient Info Name: JADE MCNULTY Age: 71 years : 1950 Gender: Female Ht: 157 cm Wt: 64 kg BSA: 1.68 m2 BP: 160 / 79 mmHg Exam Date: 07/01/2021 10:16 AM Patient Status: Inpatient Horseshoer: Laura Shaw RDMS, RVT Exam Type: ECHOCARDIOGRAM COMPLETE Study Info Indications - Other - Palpitations Attending Physician: [facility] Referring Physician: STAN Lechuga; [id number] BMI: 25.61 kg/m2 Summary 1. Normal cardiac [...] Normal ---- MV Doppler ---- MV [employer]el [place] 593 cm/s2 MV PHT 39 ms MV [...] Normal - (more content not included)... Normal [facility] XR CHEST PA/APon 06-30-2021 XR CHEST PA/AP EXAMINATION: XR CHEST PA/AP 06/30/2021 9:51 pm HISTORY: ORDERING SYSTEM PROVIDED HISTORY: leonides ghosh, TECHNOLOGIST PROVIDED HISTORY: Illness/Other Reason for exam: [...] blood sugar was really low at the [facility]. Pt is having runs of [place] [...] WedJune 30, 2021 10:21:35 PM EDT Normal [facility] Comment on above: Order Comment: Injur y/Trauma [...] blood sugar was really low at the [facility]. Pt is having runs of [place] harris MD aware. Pads attached to monitor at this time Vital Signs Date Time Vital Sign Value Performing Clinician Facility 03-14-2024 10:22-0500 Body height 157.48 cm [facility] 03-14-2024 10:22-0500 Body mass index (BMI) [Ratio] 30.5 kg/m2 [facility] 03-14-2024 [id number] Body temperature 97.3 [degF] [facility] 03-14-2024 10:22-0500 Body weight 75.74 kg [facility] 03-14-2024 10:22-0500 Diastolic blood pressure 55 mm[Hg] [facility] 03-14-2024 10:22-0500 Heart rate 88 /min [facility] 03-14-2024 10:22-0500 Respiratory rate 16 /min [facility] 03-14-2024 10:22-0500 SaO2% (BldA) [Mass fraction] 97 % [facility] 03-14-2024 10:22-0500 Systolic blood pressure 126 mm[Hg] [facility] 01-26-2024 10:02-0500 Body height 157.5 cm Zak Hancock DO Work Phone: [facility] 01-26-2024 10:02-0500 Body mass index (BMI) [Ratio] 31.75 kg/m2 Zak Hancock DO Work Phone: [facility] 01-26-2024 10:02-0500 Body weight 78.74 kg Zak Hancock DO Work Phone: [facility] 01-26-2024 10:02-0500 Diastolic blood pressure 62 mm[Hg] Zak Hancock DO Work Phone: [facility] 01-26-2024 10:02-0500 Heart rate 82 /min Zak Hancock DO Work Phone: [facility] 01-26-2024 10:02-0500 Systolic blood pressure 126 mm[Hg] Zak Hancock DO Work Phone: [facility] 09-28-2023 10:29-0400 Body height 157.48 cm [facility] 09-28-2023 10:29-0400 Body mass index (BMI) [Ratio] 31.6 kg/m2 [facility] 09-28-2023 10:29-0400 Body temperature 97.4 [degF] [facility] 09-28-2023 10:290400 Body weight 78.47 kg [facility] 09-28-2023 10:29-0400 Diastolic blood pressure 68 mm[Hg] [facility] 09-28-2023 10:29-0400 Heart rate 84 /min [facility] 09-28-2023 10:29-0400 Respiratory rate 16 /min [facility] 09-28-2023 10:29-0400 SaO2% (BldA) [Mass fraction] 96 % [facility] 09-28-2023 10:29-0400 Systolic blood pressure 138 mm[Hg] [facility] 04-29-2023 13:41-0400 Body height 157.5 cm Gary hCávez [employer] Work Phone: [facility] 04-29-2023 13:41-0400 Body mass index (BMI) [Ratio] 32.37 kg/m2 Gary Chávez [employer] Work Phone: [facility] 04-29-2023 13:41-0400 Body weight 80.29 kg Gary Chávez [employer] Work Phone: [facility] 04-29-2023 13:41-0400 Diastolic blood pressure 60 mm[Hg] Gary Chávez [employer] Work Phone: [facility] 04-29-2023 13:41-0400 Heart rate 80 /min Gary Chávez [employer] Work Phone: [facility] 04-29-2023 13:41-0400 Systolic blood pressure 116 mm[Hg] Gary Chávez [employer] Work Phone: [facility] 03-02-2023 10:00-0500 Body height 157.48 cm Sellvanayecenia [employer] Other [employer] [facility] [employer] Other 03-02-2023 10:00-0500 Body mass index (BMI) [Ratio] 32.55 kg/m2 [employer] Other [employer] [facility] [employer] Other 03-02-2023 10:00-0500 Body temperature 96.6 [degF] Aziz Bakchantels Other [employer] Other 03-02-2023 10:00-0500 Body weight 80.74 kg Azyecenia Bakhous Other [employer] Other 03-02-2023 10:00-0500 Diastolic blood pressure 70 mm[Hg] Aziz Bakhous Other [employer] Other 03-02-2023 10:00-0500 Respiratory rate 18 /min Ramsey Houstons Other [employer] Other 03-02-2023 10:00-0500 SaO2% (BldA) [Mass fraction] 99 % Ramsey Houstons Other [employer] Other 03-02-2023 10:00-0500 Systolic blood pressure 110 mm[Hg] Aziz Bakhous Other [employer] Other 09-15-2022 11:40-0400 Body height 157.48 cm Ramsey Houstons Other [employer] Other 09-15-2022 11:40-0400 Body mass index (BMI) [Ratio] 32.92 kg/m2 Azyecenia Bakhous Other [employer] Other 09-15-2022 11:40-0400 Body temperature 96.1 [degF] Aziz Bakhous Other [employer] Other 09-15-2022 11:40-0400 Body weight 81.65 kg Azyecenia Bakhous Other [employer] Other 09-15-2022 11:40-0400 Diastolic blood pressure 72 mm[Hg] Ramsey Steward Other [employer] Other 09-15-2022 11:40-0400 Respiratory rate 18 /min Ramsey Steward Other [employer] Other 09-15-2022 11:40-0400 SaO2% (BldA) [Mass fraction] 97 % Ramsey Steward Other [employer] Other 09-15-2022 11:40-0400 Systolic blood pressure 140 mm[Hg] Ramsey Steward Other [employer] Other 06-19-2022 10:14-0400 Body height 157.48 cm Domonique Cuevas Liu Work Phone: [facility] [employer] 600 DO Work Phone: 06-19-2022 10:14-0400 Body mass index (BMI) [Ratio] 34.39 kg/m2 Domonique Cuevas Liu Work Phone: [facility] [employer] 600 DO Work Phone: 06-19-2022 10:14-0400 Body surface area Derived from formula 1.86 m2 Domonique Cuevas Liu Work Phone: [facility] [employer] 600 DO Work Phone: 06-19-2022 10:14-0400 Body weight 85.28 kg Domonique Cuevas Liu Work Phone: [facility] [employer] 600 DO Work Phone: 06-19-2022 10:14-0400 Diastolic blood pressure 68 mm[Hg] Domonique Cuevas [place] Work Phone: [facility] [employer] 600 DO Work Phone: 06-19-2022 10:14-0400 Heart rate 66 /min Domonique Hatfield Work Phone: [facility] [employer] 600 DO Work Phone: 06-19-2022 10:14-0400 Systolic blood pressure 138 mm[Hg] Domonique Hatfield Work Phone: [facility] [employer] 600 DO Work Phone: 06-19-2022 10:14-0400 7 1 Domonique Hatfield Work Phone: [facility] [employer] 600 DO Work Phone: Comment on above: PHQ-9 TS 04-22-2022 11:20-0400 Body height 157.48 cm Sellvanayecenia [employer] Other [employer] Other 04-22-2022 11:20-0400 Body mass index (BMI) [Ratio] 34.53 kg/m2 Sellvanayecenia [employer] Other [employer] Other 04-22-2022 11:20-0400 Body temperature 97.3 [degF] Sellvanayecenia [employer] Other [employer] Other 04-22-2022 11:20-0400 Body weight 85.64 kg Sellvanayecenia [employer] Other [employer] Other 04-22-2022 11:20-0400 Diastolic blood pressure 80 mm[Hg] Sellvanayecenia [employer] Other [employer] Other 04-22-2022 11:20-0400 Respiratory rate 18 /min Sellvanayecenia [employer] Other [employer] Other 04-22-2022 11:20-0400 SaO2% (BldA) [Mass fraction] 98 % Ramsey Steward Other [facility] [employer] Other 04-22-2022 11:20-0400 Systolic blood pressure 154 mm[Hg] Ramsey Steward Other [facility] [employer] Other 01-19-2022 10:58-0500 Body height 157.48 cm Domonique Cuevas Liu Work Phone: [facility] [employer] 600 DO Work Phone: 01-19-2022 10:58-0500 Body mass index (BMI) [Ratio] 35.48 kg/m2 Domonique Cuevas [place] Work Phone: [facility] [employer] 600 DO Work Phone: 01-19-2022 10:58-0500 Body surface area Derived from formula 1.89 m2 Domonique Cuevas [place] Work Phone: [facility] [employer] 600 DO Work Phone: 01-19-2022 10:58-0500 Body weight 88 kg Domonique Cuevas [place] Work Phone: [facility] [employer] 600 DO Work Phone: 01-19-2022 10:58-0500 Diastolic blood pressure 60 mm[Hg] Domonique Gonzalezight Work Phone: [facility] [employer] 600 DO Work Phone: 01-19-2022 10:58-0500 Heart rate 68 /min Domonique Cuevas [place] Work Phone: [facility] [employer] 600 DO Work Phone: 01-19-2022 10:58-0500 Systolic blood pressure 136 mm[Hg] Domonique Gonzalezight Work Phone: [facility] [employer] 600 DO Work Phone: 10-28-2022 10:36-0400 Body height 157.48 cm Domonique Mason [place] Work Phone: [facility] 600 DO Work Phone: 12-05-2021 10:36-0400 Body mass index (BMI) [Ratio] 36.03 kg/m2 Domonique Cuevas [place] Work Phone: [facility] 600 DO Work Phone: 12-05-2021 10:36-0400 Body surface area Derived from formula 1.9 m2 Domonique Cuevas [place] Work Phone: [facility] 600 DO Work Phone: 12-05-2021 10:36-0400 Body weight 89.36 kg Domonique Cuevas [place] Work Phone: [facility] 600 DO Work Phone: 12-05-2021 10:36-0400 Diastolic blood pressure 64 mm[Hg] Domonique Mason [place] Work Phone: [facility] 600 DO Work Phone: 12-05-2021 10:36-0400 Heart rate 88 /min Domonique Hatfield Work Phone: [facility] 600 DO Work Phone: 12-05-2021 10:36-0400 Systolic blood pressure 120 mm[Hg] Domonique Cuevas [place] Work Phone: [facility] 600 DO Work Phone: 08-27-2021 09:21-0400 Body height 157.48 cm Domonique Cuevas [place] Work Phone: [facility] 600 DO Work Phone: 08-27-2021 09:21-0400 Body mass index (BMI) [Ratio] 37.31 kg/m2 Domonique Cuevas Hatfeild Work Phone: [facility] 600 DO Work Phone: 08-27-2021 09:21-0400 Body surface area Derived from formula 1.93 m2 Domonique Gonzalezight Work Phone: [facility] 600 DO Work Phone: 08-27-2021 09:21-0400 Body weight 92.53 kg Domonique Cuevas [place] Work Phone: [facility] 600 DO Work Phone: 08-27-2021 09:21-0400 Diastolic blood pressure 64 mm[Hg] Domonique Gonzalezight Work Phone: [facility] 600 DO Work Phone: 08-27-2021 09:21-0400 Heart rate 80 /min Domonique Hatfield Work Phone: [facility] 600 DO Work Phone: 08-27-2021 09:21-0400 Systolic blood pressure 110 mm[Hg] Domonique Gonzalezight Work Phone: [facility] 600 DO Work Phone: 07-22-2021 08:58-0400 Diastolic blood pressure 60 mm[Hg] Domonique Cuevas [place] Work Phone: [facility] 250 DO Work Phone: 07-22-2021 08:58-0400 Systolic blood pressure 126 mm[Hg] Domonique Cuevas [place] Work Phone: [facility] 250 DO Work Phone: 07-22-2021 08:58-0400 Systolic blood pressure 134 mm[Hg] Domonique Cuevas [place] Work Phone: [facility] 250 DO Work Phone: 07-22-2021 08:40-0400 Diastolic blood pressure 60 mm[Hg] Domonique Gonzalezight Work Phone: [facility] 250 DO Work Phone: 07-22-2021 08:40-0400 Systolic blood pressure 128 mm[Hg] Domonique Gonzalezight Work Phone: [facility] 250 DO Work Phone: 07-22-2021 08:36-0400 Body height 157.48 cm Domonique Hatfield Work Phone: [facility] 250 DO Work Phone: 07-22-2021 08:36-0400 Body mass index (BMI) [Ratio] 38.23 kg/m2 Domonique Hatfield Work Phone: [facility] 250 DO Work Phone: 07-22-2021 08:36-0400 Body surface area Derived from formula 1.95 m2 Domonique Hatfield Work Phone: [facility] 250 DO Work Phone: 07-22-2021 08:36-0400 Body weight 94.8 kg Domonique Hatfield Work Phone: [facility] 250 DO Work Phone: 07-22-2021 08:36-0400 Diastolic blood pressure 62 mm[Hg] Domonique Hatfield Work Phone: [facility] 250 DO Work Phone: 07-22-2021 08:36-0400 Heart rate 56 /min Domonique Hatfield Work Phone: [facility] 250 DO Work Phone: 07-22-2021 08:36-0400 Systolic blood pressure 130 mm[Hg] Domonique Hatfield Work Phone: [facility] 250 DO Work Phone: 07-22-2021 08:27-0400 6 1 Domonique E [place]field Work Phone: [facility] 250 DO Work Phone: Comment on above: PHQ-9 TS 11-18-2020 13:35-0400 Body height 157.48 cm Oxana Bermanault Other [employer] Other 11-18-2020 13:35-0400 Body mass index (BMI) [Ratio] 36.58 kg/m2 Oxana Matteo Other [employer] Other 11-18-2020 13:35-0400 Body temperature 97.1 [degF] Oxana Matteo Other [employer] Other 11-18-2020 13:35-0400 Body weight 90.72 kg Oxana Bermanault Other [employer] Other 11-18-2020 13:35-0400 Diastolic blood pressure 61 mm[Hg] Oxana Matteo Other [employer] Other 11-18-2020 13:35-0400 Respiratory rate 18 /min Oxana Matteo Other [employer] Other 11-18-2020 13:35-0400 SaO2% (BldA) [Mass fraction] 98 % Oxana Bermanault Other [employer] Other 11-18-2020 13:35-0400 Systolic blood pressure 120 mm[Hg] Oxana Matteo Other [employer] Other Encounters Encounter Date Encounter Type Care Provider Facility Start: 12-25-2024 ambulatory Dewayne Richey Facility :[facility] [place] Start: 11-09-2024 ambulatory Dewayne Richey Facility :[facility] Start: 06-06-2024 End: 06-06-2024 ambulatory Denia Rowell [facility] Start: 05-30-2024 End: 05-30-2024 ambulatory Denia Rowell [facility] Start: 05-23-2024 ambulatory Denia Rowell Facility [facility] Start: 05-16-2024 End: 05-16-2024 ambulatory Denia Rowell [facility] Start: 05-09-2024 End: 05-09-2024 ambulatory Denia Rowell [facility] Start: 05-02-2024 ambulatory Denia Rowell [facility] Start: 04-25-2024 End: 04-25-2024 ambulatory Denia Rowell [facility] Start: 04-18-2024 ambulatory Denia Rowell Facility [facility] Start: 04-11-2024 End: 04-11-2024 ambulatory Denia Rowell [facility] Start: 04-11-2024 End: 04-11-2024 Patient encounter procedure Denia Rowell [facility] Start: 03-28-2024 End: 03-28-2024 ambulatory Dewayne Richey Facility:[facility] Start: 03-23-2024 End: 03-23-2024 ambulatory Dewayne Richey Facility:[facility] Start: 03-14-2024 End: 03-14-2024 ambulatory [facility] Work Phone: Start: 03-14-2024 End: 03-14-2024 Patient encounter procedure [facility] Nephrology Miguel A Work Phone: Start: 03-07-2024 Non-patient / Non-visit [facility] [employer] Work Phone: Start: 03-07-2024 End: 03-07-2024 ambulatory Denia Rowell Facility:[facility] Start: 03-07-2024 End: 03-07-2024 Patient encounter procedure Denia Rowell [facility] Start: 02-22-2024 End: 02-22-2024 ambulatory Denia Gil Sorin Facility:[facility] Start: 02-22-2024 End: 02-22-2024 Patient encounter procedure Denia Arambulaler [facility] Start: 02-15-2024 End: 02-15-2024 ambulatory Denia Cordero Sorin Facility:[facility] Start: 02-15-2024 End: 02-15-2024 Patient encounter procedure Denia Rowell [facility] Start: 02-08-2024 End: 02-08-2024 ambulatory Denia L Sorin Facility:[facility] Start: 02-08-2024 End: 02-08-2024 Patient encounter procedure Denia Rowell [facility] Start: 02-01-2024 ambulatory Denia Roewll Facility :[facility] Start: 01-26-2024 End: 01-26-2024 Office outpatient visit 25 minutes [facility] DO Work Phone: [facility] Comment on above: 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; PVC's (premature ventricular contractions); Benign essential hypertension; 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; 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); Mixed hyperlipidemia; BMI 32.0-32.9,adult; Never smoked tobacco Start: 01-26-2024 End: 01-26-2024 ambulatory [facility] Start: 01-17-2024 End: 01-17-2024 ambulatory Dewayne Richey Facility:[facility] Start: 01-11-2024 End: 01-11-2024 ambulatory Denia Rowell [facility] Start: 01-11-2024 End: 01-11-2024 Patient encounter procedure Denia Arambulaler [facility] Start: 01-04-2024 End: 01-04-2024 ambulatory Denia Rowell Facility:[facility] Start: 01-04-2024 End: 01-04-2024 Patient encounter procedure Denia Rowell [facility] Start: 12-31-2023 End: 12-31-2023 Lab Drop off Dewayne Richey [facility] Start: 12-31-2023 End: 12-31-2023 ambulatory Dewayne Richey Facility:[facility] Start: 12-28-2023 End: 12-28-2023 ambulatory Denia Cordero Sorin Facility[facility] Start: 12-28-2023 End: 12-28-2023 Patient encounter procedure Denia Rowell [facility] Start: 12-23-2023 End: 12-23-2023 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 Pilar Rodriguez Facility:[facility] Start: 12-21-2023 End: 12-21-2023 ambulatory Denia Rowell Facility:[facility] Start: 12-21-2023 End: 12-21-2023 Patient encounter procedure Denia Rowell [facility] Start: 12-14-2023 ambulatory Denia L Sorin Facility [facility] Start: 11-24-2023 End: 11-24-2023 ambulatory Denia Cordero Rowell Facility:[facility] Start: 11-24-2023 End: 11-24-2023 Patient encounter procedure Denia Rowell [facility] Start: 11-10-2023 End: 11-10-2023 ambulatory Denia L Sorin Facility:[facility] Start: 11-10-2023 End: 11-10-2023 Patient encounter procedure Denia Rowell [facility] Start: 10-13-2023 End: 10-13-2023 ambulatory Denia L Sorin Facility:[facility] Start: 10-13-2023 End: 10-13-2023 Patient encounter procedure Denia Rowell [facility] Start: 09-29-2023 End: 09-29-2023 ambulatory Denia Arambulaler Facility:[facility] Start: 09-29-2023 End: 09-29-2023 Patient encounter procedure Denia Rowell [facility] Start: 09-28-2023 End: 09-28-2023 ambulatory [facility] Work Phone: Start: 09-28-2023 End: 09-28-2023 Patient encounter procedure [facility] Miguel A Work Phone: Start: 09-27-2023 End: 09-27-2023 Lab Drop off Dewayne Richey [facility] Start: 09-27-2023 End: 09-27-2023 ambulatory Dewayne Richey Facility:[facility] Start: 09-22-2023 Non-patient / Non-visit [facility] Work Phone: Start: 09-15-2023 End: 09-15-2023 ambulatory Denia Rowell [facility] Start: 09-15-2023 End: 09-15-2023 Patient encounter procedure Denia Rowell [facility] Start: 09-01-2023 End: 09-01-2023 ambulatory Denia L Sorin Facility[facility] Start: 09-01-2023 End: 09-01-2023 Patient encounter procedure Denia Rowell [facility] Start: 08-13-2023 ambulatory Dewayne Richey Facility:[facility] Start: 07-21-2023 ambulatory Denia Rowell Facility [facility] Start: 07-20-2023 End: 07-20-2023 ambulatory DOMINIC ORTEGA Facility:[facility] Start: 06-30-2023 ambulatory Denia Rowell Facility [facility] Start: 06-29-2023 End: 06-29-2023 ambulatory Dewayne Richey Facility:[facility] Start: 06-09-2023 End: 06-09-2023 ambulatory Denia Rowell [facility] Start: 06-09-2023 End: 06-09-2023 Patient encounter procedure Denia Rowell [facility] Start: 05-26-2023 End: 05-26-2023 ambulatory Denia Rowell Facility[facility] Start: 05-26-2023 End: 05-26-2023 Patient encounter procedure Denia Rowell [facility] Start: 04-29-2023 End: 04-29-2023 Office outpatient visit 15 minutes [facility] [employer] Work Phone: [facility] Comment on above: 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 (Primary Dx); Benign essential hypertension; Mixed hyperlipidemia; PVC's (premature ventricular contractions); 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 ([facility]); BMI 32.0-32.9,adult Start: 04-29-2023 End: 04-29-2023 ambulatory [facility] Start: 04-27-2023 End: 04-27-2023 ambulatory Denia Rowell Facility[facility] Start: 04-27-2023 End: 04-27-2023 Patient encounter procedure Denia Rowell [facility] Start: 03-30-2023 End: 03-30-2023 Lab Drop off Dewayne Richey [facility] Start: 03-30-2023 End: 03-30-2023 Patient encounter procedure Denia Rowell [facility] Start: 03-30-2023 End: 03-30-2023 ambulatory Dewayne Richey Facility:[facility] Start: 03-09-2023 End: 03-09-2023 Patient encounter procedure Denia Rowell [facility] Start: 03-02-2023 End: 03-02-2023 ambulatory Ramsey Steward Other [facility] [employer] Other Start: 03-02-2023 Office outpatient vi sit 25 minutes Ramsey Houstonamandeep [facility] Nephrology Miguel A Start: 02-23-2023 End: 02-23-2023 Patient encounter procedure Denia Rowell [facility] Start: 02-16-2023 End: 02-16-2023 Patient encounter procedure Denia Rowell [facility] Start: 02-09-2023 End: 02-09-2023 Patient encounter procedure Denia Rowell [facility] Start: 02-02-2023 End: 02-02-2023 Patient encounter procedure Denia Rowell [facility] Start: 01-12-2023 End: 01-12-2023 Patient encounter procedure Denia Cordero Rowell [facility] Start: 01-05-2023 End: 01-05-2023 Patient encounter procedure Denia Rowell [facility] Start: 12-29-2022 End: 12-29-2022 Patient encounter procedure Denia Cordero Rowell [facility] Start: 12-22-2022 End: 12-22-2022 Patient encounter procedure Denia Cordero Rowell [facility] Start: 10-07-2022 Rx Renewal Domonique Hatfield Work Phone: [facility] 600 DO Work Phone: Start: 10-05-2022 End: 10-05-2022 Lab Drop off Dewayne Richey [facility] Start: 09-15-2022 End: 09-15-2022 ambulatory Aziz Bakhous Other [facility] [employer] Other Start: 09-15-2022 Office outpatient vi sit 15 minutes Aziz Bakhous [facility] Miguel A Start: 07-07-2022 End: 07-08-2022 ambulatory DEWAYNE RICHEY Facility:[facility] Start: 07-07-2022 End: 07-07-2022 Lab Drop off DOMONIQUE HATFIELD [facility] Start: 06-19-2022 Office outpatient vi sit 25 minutes Domonique Hatfield Work Phone: [facility] 600 DO Work Phone: Start: 06-19-[address] Domonique Miranda acility: Start: 06-01-2022 End: 06-01-2022 ambulatory Aziz Bakhous Other [facility] [employer] Other Start: 06-01-2022 Telephone encounter Aziz Bakhous [facility] Start: 05-26-2022 End: 05-27-[address] DOMONIQUE HATFIELD . Facility:[facility] Start: 04-22-2022 End: 04-22-2022 ambulatory Aziz Bakhous Other [facility] [employer] Other Start: 04-22-2022 Office outpatient ne w 30 minutes Aziz Bakhous [facility] Start: 04-06-2022 End: 04-07-[address] DOMONIQUE HATFIELD . Facility:[facility] Start: 03-05-[address] Domonique Miranda acility: Start: 03-04-2022 Rx Renewal Domonique Hatfield Work Phone: [facility] 250 DO Work Phone: Start: 02-23-2022 Patient encounter procedure Domonique Hatfield Work Phone: [facility] 250 DO Work Phone: Start: 02-23-[address] Domonique Miranda acility: Start: 01-27-2022 AUDIT Domonique Hatfield Work Phone: [facility] 250 DO Work Phone: Start: 01-19-[address] Domonique Miranda acility: Start: 01-19-2022 Office outpatient vi sit 25 minutes Domonique Hatfield Work Phone: [facility] DO Work Phone: Start: 01-19-2022 Patient encounter procedure Domonique Hatfield Work Phone: [facility] 600 DO Work Phone: Start: 01-07-2022 End: 01-08-[address] DOMONIQUE HATFIELD . Facility:[facility] Start: 12-05-2021 Office outpatient vi sit 25 minutes Domonique Hatfield Work Phone: [facility] 600 DO Work Phone: Start: 12-05-[address] Domonique Miranda acility: Start: 12-01-2021 End: 12-02-[address] DOMONIQUE HATFIELD . Facility:[facility] Start: 11-13-2021 Rx Renewal Domonique Hatfield Work Phone: [facility] 250 DO Work Phone: Start: 10-31-[address] Domonique Miranda acility: Start: 10-28-2021 Patient encounter procedure Domonique Hatfield Work Phone: [facility] 600 DO Work Phone: Start: 10-28-[address] Domonique Miranda acility: Start: 10-01-2021 End: 10-02-[address] DOMONIQUE HATFIELD . Facility:[facility] Start: 08-27-2021 Office outpatient vi sit 25 minutes Domonique Hatfield Work Phone: [facility] 600 DO Work Phone: Start: 08-27-[address] Domonique Miranda acility: Start: 08-09-2021 End: 08-10-[address] DOMONIQUE HATFIELD . Facility: Start: 08-06-2021 End: 08-07-[address] DOMONIQUE HATFIELD . Facility: Start: 07-22-2021 Patient encounter procedure Domonique Hatfield Work Phone: [facility] 250 DO Work Phone: Start: 07-22-[address] Domonique Miranda acility: Start: 06-30-2021 End: 07-03-2021 Evaluation and management of inpatient [facility] Start: 12-11-2020 Telephone encounter Domonique Bobo ht Work Phone: [facility] 250 DO Work Phone: Start: 11-18-2020 (URG) Urgent Care Visit Oxana long [facility] Urgent Care Miguel A Procedures Date Procedure Procedure Detail Performing Clinician Start: 02-22-2023 End: 04-29-2023 History of placement of stent in anterior descending branch of left coronary artery Status post insertion of drug-eluting stent into left anterior descending (LAD) artery Gary Chávez [employer] Work Phone: Start: 07-01-2021 Thyrotropin [Units/v olume] in Serum or Plasma Gary Chávez [employer] Work Phone: Start: 11-16-2019 Mammography Gary agudelo [employer] Work Phone: Appendectomy Domonique Hatfield Work Phone: [...] Hatfield Work Phone: Lumpectomy of breast Domonique Hein night Work Phone: Operation on bladder Domonique Hein night Work Phone: Operative procedure on knee Domonique Hatfield Work Phone: Tonsillectomy and adenoidectomy Domonique Hatfield Work Phone: Tonsillectomy and adenoidectomy DOMONIQUE HATFIELD Total colonoscopy Domonique Bobo ht Work Phone: Plan of Treatment Date Care Activity Detail Author Start: 01-25-2025 End: 01-25-2025 Patient encounter procedure 01/25/2025 10:00 AM EST Office Visit [facility] [address] [facility] [address] [place] [address] Zak Hancock DO [address] [facility] [address] [place] [address] [facility] Start: 01-26-2024 End: 01-25-2025 Lipid 1996 panel - Serum or Plasma Lipid Panel Lab Routine Coronary artery disease involving sokaogon coronary artery of sokaogon heart without angina pectoris Mixed hyperlipidemia Expected: 01/26/2024 (Approximate), Expires: 01/25/2025 [facility] Service Area Work Phone: Comment on above: Expected: 01/26/2024 (Approximate), Expires: 01/25/2025 Start: 01-26-2024 End: 01-26-2024 Patient encounter procedure 01/26/2024 10:00 AM EST Office Visit [facility] [address] [place] [id number] Zak Hancock, DO [address] [place] [address] [facility] Start: 10-10-2023 COVID-19 Vaccine ( season) COVID-19 Vaccine ( season) [facility] Start: 06-23-2023 RSV High Risk: (Elde rly (60+) or Population) (1 - 1-dose 75+ series) RSV High Risk: (Elderly (60+) or Population) (1 - 1-dose 75+ series) [facility] Start: 04-21-2023 FUV, Provider: Zak Nguyen, Status: Pen, Time: 10:20 AM FUV, Provider: Zak Nguyen, Status: Pen, Time: 10:20 AM -[facility] 600 DO Work Phone: Start: 07-01-2022 Thyroid stimulating hormone measurement TSH Level [facility] Start: 06-19-2022 FUV, Provider: Zak Nguyen, Status: Pen, Time: 10:10 AM FUV, Provider: Zak Nguyen, Status: Pen, Time: 10:10 AM [facility] Work Phone: Start: 01-19-2022 FUV, Provider: Zak Nguyen, Status: Pen, Time: 10:40 AM FUV, Provider: Zak Nguyen, Status: Pen, Time: 10:40 AM [facility] Work [facility]: Start: 12-05-2021 FUV, Provider: Zak Nguyen, Status: Pen, Time: 10:20 AM FUV, Provider: Zak Nguyen, Status: Pen, Time: 10:20 AM -[facility] 600 DO Work Phone: Start: 10-28-2021 HOLTER 48, Provider: SHAUN TADEO TECHNICAL SUPPORT DIRECTOR 1,[id number], Status: Pen, Time: 1:00 PM HOLTER 48, Provider: SHAUN TADEO TECHNICAL SUPPORT DIRECTOR 1,[id number], Status: Pen, Time: 1:00 PM -[facility] 600 DO Work Phone: Start: 10-01-2021 Hemoglobin A1c measurement Diabetes: Hemoglobin A1C [facility] Start: 08-27-2021 FUV, Provider: Zak Nguyen, Status: Pen, Time: 9:20 AM FUV, Provider: Zak Nguyen, Status: Pen, Time: 9:20 AM -[facility] 250 DO Work Phone: Start: 08-13-2021 FUV, Provider: Zak Nguyen, Status: Pen, Time: 9:15 AM FUV, Provider: Zak Nguyen, Status: Pen, Time: 9:15 AM -[facility] 250 DO Work Phone: Start: 11-15-2020 Screening for malign ant neoplasm of breast Mammogram [facility] Start: 11-09-2019 Pneumococcal Vaccine : 65+ Years (2 - PCV) Pneumococcal Vaccine: 65+ Years (2 - PCV) [facility] Start: 11-09-2019 Pneumococcal Vaccine : 65+ Years (2 of 2 - PCV) Pneumococcal Vaccine: 65+ Years (2 of 2 - PCV) [facility] Start: 1998 Zoster Vaccines (1 of 2) Zoster Vacc anup (1 of 2) [facility] Start: 1970 DTaP/Tdap/Td Vaccine s (1 - Tdap) DTaP/Tdap/Td Vaccines (1 - Tdap) [facility] Start: 1966 Hepatitis C screening Hepatitis C Sc reening [facility] Start: 1958 Diabetic foot examination Diabetes: Foot Exam [facility] Start: 1958 Glaucoma screening Diabetes: R etinopathy Screening [facility] Start: 1948 Cyanocobalamin vitam in b-12 Vitamin B-12 [facility] Start: 1948 Diabetes: Celiac Dis ease Screening Diabetes: Celiac Disease Screening [facility] Start: 1948 Lipid panel Lipid Panel [facility] Start: 1948 Medicare Annual Well ness Visit Medicare Annual Wellness Visit (AWV) [facility] Start: 1948 Screening for malign ant neoplasm of colon [facility] Start: 1948 Screening for osteoporosis Bone Density Scan [facility] Renal function 2000 panel - Serum or Plasma [facility] Immunizations Immunization Date Immunization Notes Care Provider Dony roach 12-23-2023 influenza, high dose seasonal, preservative-free; Translations: [Fluzone High Dose Vaccine] Denia Rowell [facility] 12-21-2022 influenza, high dose seasonal, preservative-free Denia Rowell [facility] 01-17-2021 Pfizer-BioNTech COVID-19 Vacc 30 MCG/0.3ML Intramuscular Suspension Domonique Hatfield Work Phone: [facility] 01-14-2021 influenza virus vaccine, unspecified formulation Dewayne Richey [facility] 01-14-2021 Seasonal, quadrivale nt, recombinant, injectable influenza vaccine, preservative free Domonique Hatfield Work Phone: [facility] 250 DO Work Phone: 04-22-2020 Pfizer-BioNTech COVID-19 Vacc 30 MCG/0.3ML Intramuscular Suspension Domonique Hatfield Work Phone: [facility] Comment on above: Result Comment: 2022: TPV70 04-01-2020 Pfizer-BioNTech COVID-19 Vacc 30 MCG/0.3ML Intramuscular Suspension Domonique Hatfield Work Phone: [facility] Comment on above: Result Comment: 2022: TPV70 11-27-2019 Flu vaccine, quadrivalent, high-dose, preservative free, age 65y+ (FLUZONE) Gary Chávez [employer] Work Phone: [facility] Work Phone: 11-27-2019 influenza virus vaccine, unspecified formulation Dewayne Mat [facility] 11-25-2019 influenza, high dose seasonal, preservative-free Domonique Hatfield Work Phone: [facility] 04-20-2019 KENALOG - 10 mg Oxana Br eault Other [employer] Other 04-20-2019 Toradol per 15 mg Oxana Matteo Other [employer] Other 12-05-2018 KENALOG - 10 mg Oxana Br eault Other [employer] Other 11-08-2018 pneumococcal polysaccharide vaccine, 23 valent Domonique Hatfield Work Phone: [facility] 01-09-2018 Toradol per 15 mg Oxana Matteo Other [employer] Other Payers Date Payer Category [facility]ayer [facility] [id number] 2022-Present [address] [place] [address] [id number] 2022 Medicare (Managed Care) [facility] [id number] 1959 Medicare [id number] 1959 Private Health Insurance [id number] 1948 Unknown [id number] 2.16.840.1.928505.3.579.2. 903 1948 Unknown [id number] 2.16.840.1.939230.3.579.2. 356 1948 Unknown [id number] 2.16.840.1.657373.3.579.2. 1948 Unknown [id number] 2.16.840.1.591787.3.579.2. 356 1948 Unknown [id number] 2.16.840.1.364402.3.579.2. 356 1948 Unknown [id number] 2.16.840.1.593203.3.579.2. 356 1948 Unknown [id number] 2.16.840.1.459112.3.579.2. 356 1948 Unknown [id number] 2.16.840.1.521950.3.579.2. 356 1948 Unknown [id number] 2.16.840.1.991234.3.579.2. 356 1948 Unknown [id number] 2.16.840.1.476510.3.579.2. 356 1948 Unknown [id number] 2.16.840.1.545445.3.579.2. 593 1948 Unknown [id number] 2.16.840.1.815754.3.579.2. 59 1948 Unknown [id number] 2.16.840.1.659224.3.579.2. 59 1948 Unknown [id number] 2.16.840.1.811128.3.579.2 59 1948 Unknown [id number] 2.16.840.1.469222.3.579.2. 59 1948 Unknown [id number] 2.16.840.1.269324.3.579.2. 59 1948 Unknown [id number] 2.16.840.1.909392.3.579.2. 59 1948 Unknown [id number] 2.16.840.1.227011.3.579.2 59 1948 Unknown [id number] 2.16.840.1.116753.3.579.2 72 1948 Unknown [id number] 2.16.840.1.512988.3.579.2 72 1948 Unknown [id number] 2.16.840.1.881154.3.579.2 72 1948 Unknown [id number] 2.16.840.1.712867.3.579.2 72 1948 Unknown [id number] 2.16.840.1.731016.3.579.2 72 1948 Unknown [id number] 2.16.840.1.718251.3.579.2 72 1948 Unknown [id number] 2.16.840.1.548936.3.579.2 72 1948 Unknown [id number] 2.16.840.1.658119.3.579.2 72 1948 Unknown [id number] 2.16.840.1.662289.3.579.2 72 1948 Unknown [id number] 2.16.840.1.510888.3.579.2. 124 1948 Unknown [id number] 2.16.840.1.841440.3.579.2. 1243 1948 Unknown [id number] 2.16.840.1.363557.3.579.2. 1948 Unknown [id number] 2.16.840.1.903998.3.579.2 1948 Unknown [id number] 2.16.840.1.635878.3.579.2 1948 Unknown [id number] 2.16.840.1.321583.3.579.2 1948 Unknown [id number] 2.16.840.1.587522.3.579. 1948 Unknown [id number] 2.16.840.1.790953.3.579.2 1948 Unknown [id number] 2.16.840.1.731210.3.579. 1948 Unknown [id number] 2.16.840.1.801042.3.579. 1948 Unknown [id number] 2.16.840.1.780609.3.579.2 1948 Unknown [id number] 2.16.840.1.865873.3.579.2 1948 Unknown [id number] 2.16.840.1.576418.3.579.2 1948 Unknown [id number] 2.16.840.1.101762.3.579.2 1948 Unknown [id number] 2.16.840.1.778709.3.579.2 1948 Unknown [id number] 2.16.840.1.341213.3.579.2 1948 Unknown [id number] 2.16.840.1.317763.3.579.2 1948 Unknown [id number] 2.16.840.1.110346.3.579.2 1948 Unknown [id number] 2.16.840.1.682938.3.579. 1948 Unknown [id number] 2.16.840.1.543182.3.579.2 1948 Unknown [id number] 2.16.840.1.246168.3.579. 1948 Unknown [id number] 2.16.840.1.178557.3.579. 1948 Unknown [id number] 2.16.840.1.705113.3.579. 1948 Unknown [id number] 2.16.840.1.188035.3.579. 1948 Unknown [id number] 2.16.840.1.742383.3.579. 1948 Unknown [id number] 2.16.840.1.485406.3.579.2 1948 Unknown [id number] 2.16.840.1.254385.3.579.2 1948 Unknown [id number] 2.16.840.1.282890.3.579.2 1948 Unknown [id number] 2.16.840.1.764775.3.579.2 1948 Unknown [id number] 2.16.840.1.170228.3.579.2 1948 Unknown [id number] 2.16.840.1.923857.3.579. 1948 Unknown [id number] 2.16.840.1.053067.3.579.2. 72 1948 Unknown [id number] 2.16.840.1.171718.3.579.2. 1948 Unknown [id number] 2.16.840.1.054814.3.579.2. 72 1948 Unknown [id number] 2.16.840.1.129371.3.579.2. 1948 Unknown [id number] 2.16.840.1.289421.3.579.2. 1948 Unknown [id number] 2.16.840.1.757782.3.579.2. 1948 Unknown [id number] 2.16.840.1.618553.3.579.2. 1948 Unknown [id number] 2.16.840.1.853646.3.579.2. Medicare [id number] 2.16.840.1.207897.19 Medicare [id number] 2.16.840.1.726614.19 Private Health Insurance [employer] [facility] M [id number] Self-pay Self Pay [id number] Unknown Unknown [place] BC/BS [id number] Social History Date Type Detail Facility Start: 06-19-2022 End: 04-29-2023 Caffeine use Caffeine use [facility] Comment on above: Occas coffee; Start: 06-19-2022 End: 04-29-2023 [facility] Start: 07-07-2022 End: 03-28-2024 Tobacco smoking status Never smoked tobacco (finding) [facility] Comment on above: never a smoker denies use. Tobacco smoking status Never Alie dye[facility]ahairaGuero [facility] Comment on above: never a smoker denies use. Start: 04-29-2023 Tobacco use and exposure Smokeless tobacco non-user [facility] Work Phone: Start: 04-29-2023 End: 01-26-2024 Alcohol intake Lifetime non-drinker (finding) [facility] Work Phone: Start: 1950 Sex Assigned At Not on file [facility] Work Phone: Start: 04-19-2023 End: 01-26-2024 Exposure to SARS-CoV-2 (event) Not sure [facility] Start: 1950 Sex Assigned At Female [facility] Start: 03-14-2024 Sex Female (finding) [facility] Medical Equipment Procedure Code Equipment Code Equipment Origin al Text Equipment Identifier Dates Drug-eluting coronary artery stent, [id number] lymer-coated ()[id number] [facility] Start: 11-27-2019 Functional Status Date Assessment Result Facility 07-22-2021 PHQ-9 [id number] Mild (5-9) [facility] 250 DO Work Phone: Clinical Notes 11-18-2020 to 03-28-2024 Zak Hancock DO - 01/26/2024 10:00 AM ESTPatient InstructionsAssessment & Plan Note - ANA Mac - 04/29/2023 2:24 PM EDTCHULA Mac CNP - 04/29/2023 2:00 PM EDT Note Date & Type Note Facility 03-28-2024 Note Patient Education Nutrition BMI for Adults Body mass index (BMI) is a number found using a person's weight and height. BMI can help tell how much of a person's weight is made up of fat. BMI does not measure body fat directly. It is used instead of tests that directly measure body fat, which can be difficult and expensive. What are BMI measurements used for? BMI is useful to: ??? Find out if your weight puts you at higher risk for medical problems. ??? Help recommend changes, such as in diet and exercise. This can help you reach a healthy weight. BMI screening can be done again to see if these changes are working. How is BMI calculated? Your height and weight are measured. The BMI is found from those numbers. This can be done with U.S. or metric measurements. Note that charts and online BMI calculators are available to help you find your BMI quickly and easily without doing these calculations. To calculate your BMI in U.S. measurements: 1. Measure your weight in pounds (lb). 2. Multiply the number of pounds by 703. ??? So, for an adult who weighs 150 lb, multiply that number by 703: 150 x 703, which equals 105,450. 3. Measure your height in inches. Then multiply that number by itself to get a measurement called inches squared. ??? So, for an adult who is 70 inches tall, the inches squared measurement is 70 inches x 70 inches, which equals 4,900 inches squared. 4. Divide the total from step 2 (number of lb x 703) by the total from step 3 (inches squared): 105,450 ? 4,900 = 21.5. This is your BMI. To calculate your BMI in metric measurements: 1. Measure your weight in kilograms (kg). ??? For this example, the weight is 70 kg. 2. Measure your height in meters (m). Then multiply that number by itself to get a measurement called meters squared. ??? So, for an adult who is 1.75 m tall, the meters squared measurement is 1.75 m x 1.75 m, which equals 3.1 meters squared. 3. Divide the number of kilograms (your weight) by the meters squared number. In this example: 70 ? 3.1 = 22.6. This is your BMI. What do the results mean? BMI charts are used to see if you are underweight, normal weight, overweight, or obese. The following guidelines will be used: ??? Underweight: BMI less than 18.5. ??? Normal weight: BMI between 18.5 and 24.9. ??? Overweight: BMI between 25 and 29.9. ??? Obese: BMI of 30 or above. BMI is a tool and cannot diagnose a condition. Talk with your health care provider about what your BMI means for you. Keep these notes in mind: ??? Weight includes fat and muscle. Someone with a muscular build, such as an athlete, may have a BMI that is higher than 24.9. In cases like these, BMI is not a correct measure of body fat. ??? If you have a BMI of 25 or higher, your provider may need to do more testing to find out if excess body fat is the cause. ??? BMI is measured the same way for males and females. Females usually have more body fat than males of the same height and weight. Where to find more information For more information about BMI, including tools to quickly find your BMI, go to: ??? Centers for Disease Control and Prevention: cdc.gov ??? [place] Heart Association: heart.org ??? National Heart, Lung, and Blood [place]: nhlbi.nih.gov This information is not intended to replace advice given to you by your health care provider. Make sure you discuss any questions you have with your health care provider. Document Revised: 10/15/2022 Document Reviewed: 10/08/2022 [employer] Patient Education ? 2023 [email or web address]. [facility] 01-26-2024 History of Present illness Narrative Fabricio Mcnulty is a 73 y.o. female Chief Complaint Follow-up 73-year-old female returns for follow-up, former patient of Dr. Nguyen's now I am assuming her cardiovascular management following his prison. She has no cardiovascular symptoms or hospitalizations, denies nitrate usage, syncope or palpitations, arrhythmia, heart failure, shortness of breath or edema or angina She has a history of remote elective PCI LAD in 2019 following abnormal stress imaging with Mcnamara with 2.5 mm drug-eluting stent and preserved LV function. Subsequently normal stress perfusion imaging in 2021 details of which are reviewed She has history of PVCs that are asymptomatic previously large-volume but substantially diminished with the withdrawal of amitriptyline She has underlying diabetes, insulin requiring, is otherwise doing well Recent labs from this past year are reviewed she has no lipid panel will acquire this within the next several weeks. Impression/recommendations: Stable coronary artery disease, NYHA class I-2; follow-up again in 1 year obtain a lipid panel Review of Systems All other systems reviewed and are negative. Vitals: 01/26/24 1002 BP: 126/62 BP Location: Left arm Patient Position: Sitting Pulse: 82 Weight: 78.7 kg (173 lb 9.6 oz) Height: 1.575 m (5' 2 ) Objective Physical Exam Constitutional: Appearance: Normal appearance. HENT: Nose: Nose normal. Neck: Vascular: No carotid bruit. Cardiovascular: Rate and Rhythm: Normal rate. Pulses: Normal pulses. Heart sounds: Normal heart sounds. Pulmonary: Effort: Pulmonary effort is normal. Abdominal: General: Bowel sounds are normal. Palpations: Abdomen is soft. Musculoskeletal: General: Normal range of motion. Cervical back: Normal range of motion. Right lower leg: No edema. Left lower leg: No edema. Skin: General: Skin is warm and dry. Neurological: General: No focal deficit present. Mental Status: She is alert. Psychiatric: Mood and Affect: Mood normal. Behavior: Behavior normal. Thought Content: Thought content normal. Judgment: Judgment normal. Allergies Patient has no known allergies. Current Medications Current Outpatient Medications: amLODIPine (Norvasc) 5 mg tablet, TAKE 1 TABLET BY MOUTH DAILY, Disp: 90 tablet, Rfl: 3 aspirin 81 mg EC tablet, Take 1 tablet (81 mg) by mouth once daily., Disp: , Rfl: Cinnamon 500 mg capsule, Take 1 capsule (500 mg) by mouth once daily., Disp: , Rfl: HumaLOG KwikPen Insulin 100 unit/mL injection, Inject under the skin 3 times daily (morning, midday, late afternoon). Per sliding scale, Disp: , Rfl: Januvia 100 mg tablet, Take 1 tablet (100 mg) by mouth once daily., Disp: , Rfl: Lantus Solostar U-100 Insulin 100 unit/mL (3 mL) pen, Inject 15 Units under the skin once daily at bedtime., Disp: , Rfl: latanoprost (Xalatan) 0.005 % ophthalmic solution, INSERT 1 drop IN BOTH EYES AT BEDTIME, Disp: , Rfl: losartan (Cozaar) 100 mg tablet, Take 1 tablet (100 mg) by mouth once daily., Disp: , Rfl: mv-mn/folic ac/calcium/vit K1 (WOMEN'S 50 PLUS MULTIVITAMIN ORAL), Take 1 tablet by mouth once daily., Disp: , Rfl: nitroglycerin (Nitrostat) 0.4 mg SL tablet, Place 1 tablet (0.4 mg) under the tongue every 5 minutes if needed for chest pain., Disp: , Rfl: rosuvastatin (Crestor) 20 mg tablet, TAKE 1 TABLET BY MOUTH AT BEDTIME, Disp: 90 tablet, Rfl: 3 traZODone (Desyrel) 50 mg tablet, Take 1 tablet (50 mg) by mouth once daily at bedtime., Disp: , Rfl: Wellbutrin XL 150 mg 24 hr tablet, Take 1 tablet (150 mg) by mouth once daily in the morning., Disp: , Rfl: Assessment/Plan 1. 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 PVC's (premature ventricular contractions) 3. Benign essential hypertension 4. 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) 6. Mixed hyperlipidemia 7. BMI 32.0-32.9,adult 8. Never smoked tobacco Scribe Attestation By signing my name below, I, Wilbert Stack LPN attest that this documentation has been prepared under the direction and in the presence of Zak Hancock DO. Provider Attestation - Scribe documentation All medical record entries made by the Scribe were at my direction and personally dictated by me. I have reviewed the chart and agree that the record accurately reflects my personal performance of the history, physical exam, discussion and plan. documented in this encounter [facility] Work Phone: 01-26-2024 Instructions Rosita Nunn LPN - 01/26/2024 10:00 AM EST Please bring all medicines, vitamins, and herbal supplements with you when you come to the office. Prescriptions will not be filled unless you are compliant with your follow up appointments or have a follow up appointment scheduled as per instruction of your physician. Refills should be requested at the time of your visit. BMI was above normal measurement. Current weight: 78.7 kg (173 lb 9.6 oz) Weight change since last visit (-) denotes wt loss -3.4 lbs Weight loss needed to achieve BMI 25: 37.2 Lbs Weight loss needed to achieve BMI 30: 9.9 Lbs Provided instructions on dietary changes Provided instructions on exercise. documented in this encounter [facility] Work Phone: 01-24-2024 Note Interdisciplinary No te - Pelt Shearer Consult for positive depression screen received. Per chart notes, patient is current with counseling for these concerns. SW will remain available. [facility] 12-31-2023 Note Nurse Consultation N ote Reason [...] NitroStat 0.4 mg Tab, See Instructions Pen Napavine, See Instructions, 3 refills rosuvastatin 20 mg [...] pneumococcal 23-valent vaccine 11/08/2018 Recorded [facility] 12-23-2023 Note Patient Education Correction Insulin [...] changing your diet, or holidays. ? New oatj-uvo-mglndwi or prescription medicines. ? Illness, stress, or [...] happens, someone else should call emergency services (025 in the [place] right away. ??? Your blood glucose is lower than 54 mg/dL (3.0 mmol/L). ??? You become confused or you have trouble thinking clearly. ??? You have difficulty breathing. These symptoms may represent a serious problem that is an emergency. Do not wait to see if the symptoms will go away. Get medical help right away. Call your local emergency services (148 in the [place] Do not drive yourself [...] he (more content not included)... [facility] 09-27-2023 Note Nurse Consultation N ote [...] NitroStat 0.4 mg Tab, See Instructions Pen Napavine, See Instructions, 3 refills Pen Napavine, See Instructions, 1 refills rosuvastatin 20 mg [...] pneumococcal 23-valent vaccine 11/08/2018 Recorded [facility] 09-27-2023 Note Patient Education Cardiovascular Hypertension, [...] mL), (more content not included)... [facility] 04-29-2023 Evaluation + Plan note Associated Problem(s): BMI 32.0-32.9,adult She is actively making lifestyle changes Weight is down 11 pounds Encouraged to continue [facility] Work Phone: 04-29-2023 Evaluation + Plan note Associated Problem(s): Diabetes (CMS/HCC) Maintained on ARB/statin Reports most recent hemoglobin A1c 6.4 [facility] Work Phone: 04-29-2023 Evaluation + Plan note Associated Problem(s): PVC's (premature ventricular contractions) CAD was initially identified during workup for PVC burden. February 2022 Holter 8.4% PVC burden Denies dizziness lightheadedness, no prior syncope. [facility] Work Phone: 04-29-2023 Miscellaneous Notes Associated [...] PCP Associated Problem(s): Coronary artery disease involving sokaogon coronary artery of sokaogon heart without angina pectoris No ACS admit or acute AR. CAD was identified on testing for high PVC burden. November 2019 mLAD PCI/[place] 2.5/22mm (+IFR) Circumflex negative RCA negative LVEF 65% May 2021 MPI no ischemia Associated Problem(s): Benign essential hypertension Optimal in office documented in this encounter [facility] Work Phone: 04-29-2023 Evaluation + Plan note Associated Problem(s): Hyperlipidemia High intensity statin Annual labs through PCP [facility] Work Phone: 04-29-2023 Evaluation + Plan note Associated Problem(s): Coronary artery disease involving sokaogon coronary artery of sokaogon heart without angina pectoris No ACS admit or acute AR. CAD was identified on testing for high PVC burden. November 2019 mLAD PCI/Mauro 2.5/22mm (+IFR) Circumflex negative RCA negative LVEF 65% May 2021 MPI no ischemia [facility] Work Phone: 04-29-2023 Evaluation + Plan note Associated Problem(s): Benign essential hypertension Optimal in office [facility] Work Phone: 04-29-2023 History of Present illness [...] is now greater than 3.5 years from [place] stenting, no high ischemic wrist and therefore [...] Optimal in office Coronary artery disease involving sokaogon coronary artery of sokaogon heart without angina pectoris No ACS admit or acute AR. CAD was identified on testing for high [...] if new symptoms arise. Gary Chávez MSN, [employer], PMHNP-BC [facility] Please excuse any errors in grammar or translation related to this dictation. Voice recognition software was utilized to prepare this document. documented in this encounter [facility] Work Phone: 04-29-2023 Instructions ANA Mac [...] new symptoms arise. documented in this encounter [facility] Work Phone: 03-02-2023 Evaluation note Encounter [...] diet and to monitor BP at home [facility] Other 08-08-2023 Evaluation note* Encounter Date Diagnosis [...] dose of amlodipine 5 mg p.o. daily [facility] Other 04-18-2023 NotePROCEDURE: US KIDNEYS DATE: 05/26/2022 [...] Electronically authenticated by: RADHA OGLESBY Date: 2022-05-26 12:07[facility]03-15-2023 Evaluation note* Encounter Date Diagnosis Assessment [...] 10 mg if blood pressure remains uncontrolled [facility] [employer] Other 10-11-2021 Evaluation note* Encounter Date Diagnosis Assessment Notes Treatment Notes Treatment Clinical Notes Nov, Injury of back, initial encounter (ICD-10 - S39.92XA) patient is in so much pain she is unable to speak and breath; patient is tearful and states pain is intolerable. Recommend ER due to level of discomfort at this time. [facility] Other Evaluation + Plan note Future Appointments Appointment Date:10/05/2022 04:40:00 PM Scheduled Provider:Dewayne Richey MD Location:[facility] Appointment Type: Open [facility] Future Appointments Appointment Date:12/29/2022 11:00:00 AM Scheduled Provider: Location:[facility] Appointment Type:FM Medicare Wellness Subsequent Appointment Date:04/05/2023 10:00:00 AM Scheduled Provider:Dewayne Richey MD Location:[facility] Appointment Type: Open Diagnostic Tests Pending * CBC w/ Auto Diff 10/05/22 * Comprehensive Metabolic Panel 10/05/22 * Lipid Panel 10/05/22 * HgbA1c 10/05/22 * Microalbumin Level Urine 10/05/22 * U Protein/Creat Ratio 10/05/22 [facility] note Future Appointments Appointment Date:12/29/2022 10:00:00 AM Scheduled Provider:Denia Ding Location:[facility] Behavioral Health [facility] Appointment Type:BH Therapy 60 Appointment Date:04/05/2023 10:00:00 AM Scheduled Provider:Dewayne Richey MD Location:[facility] Appointment Type:FM Open Appointment Date:12/22/2023 11:00:00 AM Scheduled Provider: Location:[facility] Appointment Type: Medicare Wellness Subsequent [facility] Behavioral Health evaluation + Plan note Future Appointments Appointment Date:01/05/2023 10:00:00 AM Scheduled Provider:Denia Ding Location:[facility] Appointment Type:BH Therapy 60 Appointment Date:04/05/2023 10:00:00 AM Scheduled Provider:Dewayne Richey MD Location:[facility] Appointment Type:FM Open Appointment Date:12/22/2023 11:00:00 AM Scheduled Provider: Location:[facility] Appointment Type: Medicare Wellness [facility] Behavioral Health evaluation + Plan note Future Appointments Appointment Date:01/12/2023 10:00:00 AM Scheduled Provider:Denia Ding Location:[facility] Appointment Type:BH Therapy 60 Appointment Date:04/05/2023 10:00:00 AM Scheduled Provider:Dewayne Richey MD Location:[facility] Appointment Type: Open Appointment Date:12/22/2023 11:00:00 AM Scheduled Provider: Location:[facility] Appointment Type: Medicare Wellness [facility] Behavioral Health evaluation + Plan note Future Appointments Appointment Date:01/19/2023 01:00:00 PM Scheduled Provider:Denia Ding Location:[facility] Appointment Type:BH Therapy 60 Appointment Date:04/05/2023 10:00:00 AM Scheduled Provider:Dewayne Richey MD Location:[facility] Appointment Type:FM Open Appointment Date:12/22/2023 11:00:00 AM Scheduled Provider: Location:[facility] Appointment Type:FM Medicare Wellness Subsequent [facility] Behavioral Health evaluation + Plan note Future Appointments Appointment Date:02/09/2023 11:00:00 AM Scheduled Provider:Denia Ding Location:[facility] Appointment Type:BH Therapy 60 Appointment Date:03/30/2023 10:00:00 AM Scheduled Provider:Dewayne Richey MD Location:[facility] Appointment Type:FM Open Appointment Date:12/22/2023 11:00:00 AM Scheduled Provider: Location:[facility] Appointment Type: Medicare Wellness [facility] Behavioral Health evaluation + Plan note Future Appointments Appointment Date:02/16/2023 10:00:00 AM Scheduled Provider:Denia Ding Location:[facility] Appointment Type:BH Therapy 60 Appointment Date:03/30/2023 10:00:00 AM Scheduled Provider:Dewayne Richey MD Location:[facility] Appointment Type: Open Appointment Date:12/22/2023 11:00:00 AM Scheduled Provider: Location:[facility] Appointment Type: Medicare Wellness [facility] Behavioral Health evaluation + Plan note Future Appointments Appointment Date:02/23/2023 02:00:00 PM Scheduled Provider:Denia Ding Location:[facility] Appointment Type:BH Therapy 60 Appointment Date:03/30/2023 10:00:00 AM Scheduled Provider:Dweayne Richey MD Location:[facility] Appointment Type: Open Appointment Date:12/22/2023 11:00:00 AM Scheduled Provider: Location:[facility] Appointment Type: Medicare Wellness [facility] Behavioral Health evaluation + Plan note Future Appointments Appointment Date:03/09/2023 11:00:00 AM Scheduled Provider:Denia Ding Location:[facility] Appointment Type:BH Therapy 60 Appointment Date:03/30/2023 10:00:00 AM Scheduled Provider:Dewayne Richey MD Location:[facility] Appointment Type:FM Open Appointment Date:12/22/2023 11:00:00 AM Scheduled Provider: Location:[facility] Appointment Type: Medicare Wellness Subsequent [facility] Behavioral Health evaluation + Plan note Future Appointments Appointment Date:03/23/2023 10:00:00 AM Scheduled Provider:Denia Ding Location:[facility] Appointment Type:BH Therapy 60 Appointment Date:03/30/2023 10:00:00 AM Scheduled Provider:Dewayne Richey MD Location:[facility] Appointment Type:FM Open Appointment Date:12/23/2023 09:30:00 AM Scheduled Provider: Location:[facility] Appointment Type:FM Medicare Wellness [facility] Behavioral Health evaluation + Plan note Future Appointments Appointment Date:04/13/2023 09:00:00 AM Scheduled Provider:Denia Ding Location:[facility] Appointment Type:BH Therapy 60 Appointment Date:06/29/2023 10:00:00 AM Scheduled Provider:Dewayne Richey MD Location:[facility] Appointment Type:FM Open Appointment Date:12/23/2023 09:30:00 AM Scheduled Provider: Location:[facility] Appointment Type:FM Medicare Wellness Subsequent [facility] Behavioral Health evaluation + Plan note Future Appointments Appointment Date:05/12/2023 12:00:00 PM Scheduled Provider:Denia Ding Location:[facility] Appointment Type:BH Therapy 60 Appointment Date:06/29/2023 10:00:00 AM Scheduled Provider:Dewayne Richey MD Location:[facility] Appointment Type:FM Open Appointment Date:12/23/2023 09:30:00 AM Scheduled Provider: Location:[facility] Appointment Type:FM Medicare Wellness Subsequent [facility] Behavioral Health evaluation + Plan note Future Appointments Appointment Date:06/09/2023 05:00:00 PM Scheduled Provider:Denia Ding Location:[facility] Appointment Type:BH Therapy 60 Appointment Date:06/29/2023 10:00:00 AM Scheduled Provider:Dewayne Richey MD Location:[facility] Appointment Type:FM Open Appointment Date:12/23/2023 09:30:00 AM Scheduled Provider: Location:[facility] Appointment Type:FM Medicare Wellness Subsequent [facility] Behavioral Health evaluation + Plan note Future Appointments Appointment Date:06/29/2023 10:00:00 AM Scheduled Provider:Dewayne Richey MD Location:[facility] Appointment Type:FM Open Appointment Date:12/23/2023 09:30:00 AM Scheduled Provider: Location:[facility] Appointment Type:FM Medicare Wellness Subsequent [facility] Behavioral Health evaluation + Plan note Future Appointments Appointment Date:09/15/2023 10:00:00 AM Scheduled Provider:Denia Ding Location:[facility] Appointment Type:BH Therapy 60 Appointment Date:09/28/2023 10:00:00 AM Scheduled Provider:Dewayne Richey MD Location:[facility] Appointment Type:FM Open Appointment Date:09/29/2023 10:00:00 AM Scheduled Provider:Denia Ding Location:[facility] Appointment Type:BH Therapy 60 Appointment Date:10/13/2023 10:00:00 AM Scheduled Provider:Denia Ding Location:[facility] Appointment Type:BH Therapy 60 Appointment Date:12/23/2023 01:00:00 PM Scheduled Provider: Location:[facility] Appointment Type: Medicare Wellness [facility] Behavioral Health evaluation + Plan note Future Appointments Appointment Date:09/28/2023 10:00:00 AM Scheduled Provider:Dewayne Richey MD Location:[facility] Appointment Type:FM Open Appointment Date:09/29/2023 10:00:00 AM Scheduled Provider:Den[facility] Ding [facility] Type:BH Therapy 60 Appointment Date:10/13/2023 10:00:00 AM Scheduled Provider:Denia Ding [facility] Type:BH Therapy 60 Appointment Date:12/23/2023 01:00:00 PM Scheduled Provider: Location:[facility] Appointment Type:FM Medicare Wellness Subsequent [facility] Behavioral Health evaluation + Plan note Future Appointments Appointment Date:09/29/2023 10:00:00 AM Scheduled Provider:Denia Ding Location:[facility] Appointment Type:BH Therapy 60 Appointment Date:10/13/2023 10:00:00 AM Scheduled Provider:Denia Ding Location:[facility] Appointment Type:BH Therapy 60 Appointment Date:12/23/2023 01:00:00 PM Scheduled Provider: Location:[facility] Appointment Type: Medicare Wellness Subsequent Appointment Date:03/27/2024 10:00:00 AM Scheduled Provider:Dewayne Richey MD Location:[facility] Appointment Type:[facility] evaluation + Plan note Future Appointments Appointment Date:10/13/2023 10:00:00 AM Scheduled Provider:Denia Ding Location:[facility] Appointment Type:BH Therapy 60 Appointment Date:12/23/2023 01:00:00 PM Scheduled Provider: Location:[facility] Appointment Type: Medicare Wellness Subsequent Appointment Date:03/27/2024 10:00:00 AM Scheduled Provider:Dewayne Richey MD Location:[facility] Appointment Type:[facility] Behavioral Health evaluation + Plan note Future Appointments Appointment Date:11/10/2023 10:00:00 AM Scheduled Provider:Denia Ding Location:[facility] Appointment Type:BH Therapy 60 Appointment Date:12/23/2023 01:00:00 PM Scheduled Provider: Location:[facility] Appointment Type: Medicare Wellness Subsequent Appointment Date:03/27/2024 10:00:00 AM Scheduled Provider:Dewayne Richey MD Location:[facility] Appointment Type:[facility] Behavioral Health evaluation + Plan note Future Appointments Appointment Date:11/24/2023 10:00:00 AM Scheduled Provider:Denia Ding Location:[facility] Appointment Type:BH Therapy 60 Appointment Date:12/23/2023 01:00:00 PM Scheduled Provider: Location:[facility] Appointment Type: Medicare Wellness Subsequent Appointment Date:03/27/2024 10:00:00 AM Scheduled Provider:Dewayne Richey MD Location:[facility] Appointment Type:[facility] Behavioral Health evaluation + Plan note Future Appointments Appointment Date:12/08/2023 10:00:00 AM Scheduled Provider:Denia Ding Location:[facility] Appointment Type:BH Therapy 60 Appointment Date:12/23/2023 01:00:00 PM Scheduled Provider: Location:[facility] Appointment Type: Medicare Wellness Subsequent Appointment Date:03/27/2024 10:00:00 AM Scheduled Provider:Dewayne Richey MD Location:[facility] Appointment Type:[facility] Behavioral Health evaluation + Plan note Future Appointments Appointment Date:12/23/2023 01:00:00 PM Scheduled Provider: Location:[facility] Appointment Type: Medicare Wellness Subsequent Appointment Date:12/28/2023 10:00:00 AM Scheduled Provider:Denia Ding Location:[facility] Appointment Type:BH Therapy 60 Appointment Date:03/27/2024 10:00:00 AM Scheduled Provider:Dewayne Richey MD Location:[facility] Appointment Type:[facility] Behavioral Health evaluation + Plan note Future Appointments Appointment Date:12/31/2023 01:20:00 PM Scheduled Provider: Location:[facility] Appointment Type:FM Lab Draw Appointment Date:01/04/2024 10:00:00 AM Scheduled Provider:Denia Ding Location:[facility] Appointment Type:BH Therapy 60 Appointment Date:03/27/2024 10:00:00 AM Scheduled Provider:Dewayne Richey MD Location:[facility] Appointment Type: Open Appointment Date:12/25/2024 01:00:00 PM Scheduled Provider: Location:[facility] Appointment Type: Medicare Wellness Subsequent Future Scheduled Tests Laboratory* HgbA1c 12/23/23 * HCV Antibody RFX to Quant PCR 12/23/23 [facility] Behavioral Health evaluation + Plan note Future Appointments Appointment Date:01/04/2024 10:00:00 AM Scheduled Provider:Denia Ding Location:[facility] Appointment Type:BH Therapy 60 Appointment Date:03/27/2024 10:00:00 AM Scheduled Provider:Dewayne Richey MD Location:[facility] Appointment Type: Open Appointment Date:12/25/2024 01:00:00 PM Scheduled Provider: Location:[facility] Appointment Type: Medicare Wellness Subsequent Diagnostic Tests Pending * HCV Antibody RFX to Quant PCR 12/31/23 [facility] evaluation + Plan note Future Appointments Appointment Date:01/11/2024 09:00:00 AM Scheduled Provider:Denia Ding Location:[facility] Appointment Type:BH Therapy 60 Appointment Date:03/27/2024 10:00:00 AM Scheduled Provider:Dewayne Richey MD Location:[facility] Appointment Type: Open Appointment Date:12/25/2024 01:00:00 PM Scheduled Provider: Location:[facility] Appointment Type: Medicare Wellness Subsequent [facility] Behavioral Health evaluation + Plan note Future Appointments Appointment Date:01/17/2024 09:30:00 AM Scheduled Provider:Dewayne Richey MD Location:[facility] Appointment Type: Open Appointment Date:01/18/2024 10:00:00 AM Scheduled Provider:Denia Ding Location:[facility] Appointment Type:BH Therapy 60 Appointment Date:03/27/2024 10:00:00 AM Scheduled Provider:Dewayne Richey MD Location:[facility] Appointment Type:FM Open Appointment Date:12/25/2024 01:00:00 PM Scheduled Provider: Location:[facility] Appointment Type:FM Medicare Wellness [facility] Behavioral Health evaluation + Plan note Future Appointments Appointment Date:02/15/2024 09:00:00 AM Scheduled Provider:Denia Ding Location:[facility] Appointment Type:BH Therapy 60 Appointment Date:02/22/2024 09:00:00 AM Scheduled Provider:Denia Ding Location:[facility] Appointment Type:BH Therapy 60 Appointment Date:03/27/2024 10:00:00 AM Scheduled Provider:Dewayne Richey MD Location:[facility] Appointment Type: Open Appointment Date:12/25/2024 01:00:00 PM Scheduled Provider: Location:[facility] Appointment Type:FM Medicare Wellness [facility] Behavioral Health evaluation + Plan note Future Appointments Appointment Date:02/22/2024 09:00:00 AM Scheduled Provider:Denia Ding Location:[facility] Appointment Type:BH Therapy 60 Appointment Date:03/27/2024 10:00:00 AM Scheduled Provider:Dewayne Richey MD Location:[facility] Appointment Type: Open Appointment Date:12/25/2024 01:00:00 PM Scheduled Provider: Location:[facility] Appointment Type:FM Medicare Wellness Subsequent [facility] Behavioral Health evaluation + Plan note Future Appointments Appointment Date:03/07/2024 09:00:00 AM Scheduled Provider:Denia Ding Location:[facility] Appointment Type:BH Therapy 60 Appointment Date:03/27/2024 10:00:00 AM Scheduled Provider:Dewayne Richey MD Location:[facility] Appointment Type:FM Open Appointment Date:12/25/2024 01:00:00 PM Scheduled Provider: [facility]:FM Medicare Wellness [facility] Behavioral Health evaluation + Plan note Future Appointments Appointment Date:03/21/2024 09:00:00 AM Scheduled Provider:Den[facility] Ding [facility] Type:BH Therapy 60 Appointment Date:03/23/2024 10:30:00 AM Scheduled Provider:Dewayne Richey MD Location:[facility] Appointment Type: Open Appointment Date:12/25/2024 01:00:00 PM Scheduled Provider: Location:[facility] Appointment Type:FM Medicare Wellness Subsequent [facility] Behavioral Health evaluation + Plan note Future Appointments Appointment Date:04/18/2024 09:00:00 AM Scheduled Provider:Denia Ding Location:[facility] Appointment Type:BH Therapy 60 Appointment Date:04/25/2024 10:00:00 AM Scheduled Provider:Denia Ding [facility] Type:BH Therapy 60 Appointment Date:05/02/2024 09:00:00 AM Scheduled Provider:Denia Ding [facility] Type:BH Therapy 60 Appointment Date:05/09/2024 08:15:00 AM Scheduled Provider:Dewayne Richey MD Location:[facility] Appointment Type: Open Appointment Date:12/25/2024 01:00:00 PM Scheduled Provider: Location:[facility] Appointment Type:FM Medicare Wellness 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 ([facility]) BMI 32.0-32.9,adult documented in this encounter [facility] Work Phone: Evaluation note* Diagnosis Onset Date Resolution Status Chronic kidney disease, stage 3b acute 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 acute Hypercalcemia acute Hyperlipemia acute Hypertensive nephropathy acu te Obesity acute [facility] Work Phone: Evaluation note* Diagnosis Coronary artery disease involving sokaogon coronary artery of sokaogon heart without angina pectoris- Primary Benign essential hypertension Essential hypertension, benign Mixed hyperlipidemia PVC's (premature ventricular contractions) Other premature beats 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 BMI 32.0-32.9,adult Coronary artery disease involving sokaogon coronary artery of sokaogon heart without angina pectoris PVC's (premature ventricular contractions) Other premature beats Benign essential hypertension Essential hypertension, benign 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) Mixed hyperlipidemia BMI 32.0-32.9,adult Never smoked tobacco documented in this encounter [facility] Work Phone: Evaluation note* Diagnosis Onset Date Resolution Status Admit Date Chronic kidney disease, stag e 3b acute March 14 10:18am 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 acute Fe 2024 10:18am Hypercalcemia acute March 10:18am Hyperlipemia acute March 10:18am Hypertensive nephropathy acute March 14, 2024 10:18am Obesity acute March 14, 2024 10:18am [facility] Work Phone: Hisctqj general Narrative - Reported* Type Description Date [...] History bladder sling Hospitalization History see above [facility] Other Hisyucn general Narrative - Reported* Type Description Date [...] see above Hospitalization History 4 CHILD BIRTHS [facility] Other History of Present illness Narrative* Patient [...] our next steps are going to be. [facility] [employer] DO Work Phone: History of Present illness [...] lipids also appear to be adequately addressed. [facility] 600 DO Work Phone: History of Present [...] the merits of diet and weight loss. [facility] 250 DO Work Phone: History of [...] to call if they arise or occur. [facility] 600 DO Work Phone: Hospital course Narrative No data available for this section [facility] instructions No data available for this section [facility] note No data available for this section [facility] HealthcareReason for referral (narrative)* Consultation (Routine) - Authorized Specialty Diagnoses / Procedures Referred By Fallon rios Referred To Contact Cardiology Diagnoses Coronary artery disease involving sokaogon coronary artery of sokaogon heart without angina pectoris Procedures Follow Up In Cardiology Gary Chávez, ANA [address] [facility] [address], [place] [id number] Referral ID Status Reason Start Date Expiration Date V isits Requested Visits Authorized [id number] Authorized 04/29/2023 04/28/2024 1 1 [facility] Work Phone: Family History No Family [...] Z82.49) Status:Active Family history of diabetes m miltonitus: Sister(V18.0, Z83.3) Status:Active Relationship Condition Age at Onset Recorded Date/T erasto father Malignant neoplasm Unknown Heart disease Unknown Unknown Hypertension Unknown mother Hypertension Unknown son Hypertension Unknown Diabetes mellitus Unknown sister Diabetes mellitus Unknown Summary Purpose Advance Directives No Advanced Directives Records Found Advance Directive Response Recorded Date/ Time Advance Directives No April 19 4:20pm Advance Directive Response Recorded Date/ Time Advance Directives No April 19 3:20pm Chief Complaint JADE MCNULTY is being seen for an annual follow-up of [place] Abnormal Holter.JADE MCNULTY is being seen for Testing results.AJDE MCNULTY is being seen for a 4-6 weeks week follow-up of.JADE MCNULTY is being seen for a 4-6 weeks week follow-up of.JADE MCNULTY is being seen for a 6 month follow-up of. Chief Complaint and Reason for Visit Chief Complaint RENAL 6 month f/u Reason for Visit Chronic kidney disea se, stage 3b Diabetic nephropathy associated with type 2 diabetes mellitus Hypercalcemia Hyperlipemia Hypertensive nephropathy Obesity Chief Complaint Admit Date RENAL 6 MONTH F/U March 14, 2024 1 0:18am Reason for Visit Admit Date Chronic kidney disease, stage 3b 2024 10:18am 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 March 14, 2024 10:18am Hypercalcemia March 14, 2024 1 0:18am Hyperlipemia March 14, 2024 1 0:18am Hypertensive nephropathy March 14 10:18am Obesity March 14, 2024 1 0:18am Additional Source Comments INFORMATION SOURCE (unrecogn ized section and content) DATE CREATED AUTHOR 07/31/2021 [facility] DATE CREATED AUTHOR AUTHOR'S ORGANIZ ATION 06/21/2022 [facility] DATE CREATED AUTHOR AUTHOR'S ORGANIZ ATION 07/17/2022 [facility] DATE CREATED AUTHOR AUTHOR'S ORGANIZ ATION 12/25/2022 [facility] DATE CREATED AUTHOR AUTHOR'S ORGANIZ ATION 09/29/2023 [facility] DATE CREATED AUTHOR AUTHOR'S ORGANIZ ATION 01/04/2024 [facility] DATE CREATED AUTHOR AUTHOR'S ORGANIZ ATION 01/06/2024 [facility] DATE CREATED AUTHOR AUTHOR'S ORGANIZ ATION 01/29/2024 [facility] DATE CREATED AUTHOR AUTHOR'S ORGANIZ ATION 03/24/2024 [facility] DATE CREATED AUTHOR AUTHOR'S ORGANIZ ATION 06/08/2024 [facility] REASON FOR VISIT (unrecogniz ed section and content) Reason Comments Follow-up 9 months Reason Comments Follow-up 9 month Specialty Diagnoses / Procedures Referred By Contac t Referred To Contact Cardiology Diagnoses Coronary artery disease involving sokaogon coronary artery of sokaogon heart without angina pectoris Procedures Follow Up In Cardiology Gary Chávez, [employer] [address] [facility] [address], [address] [address] Phone: tel: fax: Referral ID Status Reason Start Date Expiration Date V isits Requested Visits Authorized [id number] Authorized 04/29/2023 04/28/2024 1 1 Patient Care team informatio n (unrecognized section and content) Developer Architect Relationship Specialty Start Date End Date Domonique [place] MD [address] [facility] [place] [address] PCP - General 05/18/02 Team Status: Active [...] September 28, 2023 End: September 28, 2023 Developer Architect Relationship Specialty Start Date End Date Dewayne Richey MD [address] [facility] [place] [address] PCP - General Family Medicine 01/26/24 Team Status: Active Member Role Status Dates Dewayne Richey MD Primary Care Provider Active Team Status: Active Member Role Status Dates Domonique [place] MD Primary Care Provider Active S tart: March 07, 2024 Ramsey Steward MD Attending Provider Active Star t: March 07, 2024 Team Status: Inactive Member Role Status Dates Ramsey Steward MD Attending Provider Active Star t: March 14, 2024 End: March 14, 2024 Dewayne Richey MD Primary Care Provider Active Start: March 14, 2024 End: March 14, 2024 Goals (unrecognized section and content) Goals may [...] BE BASED ON THE PRIMARY CLINICAL RECORDS. [employer] provides no warranty or guarantee of the accuracy or completeness of information in this document.
[2024-07-30 22:32] LABS: Glucometer 144 mg/dL (74-106)
--- NOTE | 2024-07-30 22:37 | ECG_ITS ---
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 Measurements Intervals [place] Rate: 99 P: 73 HI: 166 QRS: -26 QRSD: 114 T: 68 QT: 382 QTc: 438 Interpretive Statements 1100 Sinus rhythm 3114 Cannot rule out anterior myocardial infarction, age undetermined Nonspecific ST and T wave abnormality 9150 abnormal ECG Compared to ECG 07/30/2024 22:47:03 Premature ventricular complexes no longer present Electronically Signed On 07-31-2024 18:15:09 EDT by DAVONTE DUARTE M.D.
--- NOTE | 2024-07-30 22:37 | ED.WEAKNESS1 ---
HPI - Weakness General Chief complaint: Weakness Stated complaint: BLOOD SUGAR Time Seen by Provider: 07/30/24 22:26 History of Present Illness HPI Narrative: patient states she was going through her clothes deciding what she was going to keep or give/throw away. Sat down to take a break and woke up on the floor. History of IDDM. Hypoglycemic per squad. Hypoglycemia treated by Squad. Arrives awake but complaint of freezing. No chest pain or abdominal pain. Denies urinary symptoms. History of CAD and has one stent Related Data Home Medications ?Medication ?Instructions ?Recorded ?Confirmed amlodipine 5 mg tablet 5 mg PO DAILY 07/31/24 07/31/24 bupropion HCl 300 mg 24 hr tablet, 300 mg PO DAILY 07/31/24 07/31/24 extended release latanoprost 0.005 % eye drops 1 drp ophthalmic (eye) QPM 07/31/24 07/31/24 losartan 100 mg tablet 100 mg PO DAILY 07/31/24 07/31/24 rosuvastatin 20 mg tablet 20 mg PO DAILY 07/31/24 07/31/24 sitagliptin phosphate 100 mg 100 mg PO DAILY 07/31/24 07/31/24 tablet (Januvia) trazodone 50 mg tablet 50 mg PO DAILY 07/31/24 07/31/24 Allergies Allergy/AdvReac Type Severity Reaction Status Date / Time No Known Drug Allergies Allergy Verified 07/30/24 22:28 Review of Systems ROS Status of ROS 10 or more systems reviewed and unremarkable except as noted in history and below [facility] Medical History (Updated 07/31/24 @ 03:41 by Wily Blount MD) High cholesterol ?E78.00 - Pure hypercholesterolemia, unspecified (ICD-10) Diabetes ?E11.9 - Type 2 diabetes mellitus without complications (ICD-10) HTN (hypertension) ?I10 - Essential (primary) hypertension (ICD-10) Exam Constitutional Vital Signs, click to edit/add: Last Vital Signs Temp 97.6 F 07/31/24 00:42 Pulse 90 07/31/24 02:45 Resp 12 07/31/24 02:45 BP 124/62 07/31/24 02:45 Pulse Ox 97 07/31/24 02:45 O2 Del Method Room Air 07/30/24 22:23 Common normals: no apparent distress (shivering), oriented x3 and alert HENMT Common normals: normocephalic and head/scalp atraumatic Eye Common normals: conjunctivae normal Respiratory Common normals: normal respiratory effort, no retractions, no use of accessory muscles and clear to auscultation bilaterally Cardio Common normals: S1 normal heart sound and S2 normal heart sound Rate: tachycardic GI Common normals: Normal to inspection, nondistended, normoactive bowel sounds present, soft to palpation and non-tender Extremity Common normals: normal to inspection and full ROM Neuro Common normals: oriented x3, CN's II-XII intact bilaterally and moves all extremities Psych Appearance: grossly normal Course Vital Signs Vital signs: Vital Signs Temperature 97.7 F 07/30/24 22:23 Pulse Rate 106 H 07/30/24 22:23 Respiratory Rate 26 H 07/30/24 22:23 Blood Pressure 135/77 07/30/24 22:23 Pulse Oximetry 100 07/30/24 22:23 Oxygen Delivery Method Room Air 07/30/24 22:23 Temperature 97.6 F 07/31/24 00:42 Pulse Rate 90 07/31/24 02:45 Respiratory Rate 12 07/31/24 02:45 Blood Pressure 124/62 07/31/24 02:45 Pulse Oximetry 97 07/31/24 02:45 Oxygen Delivery Method Room Air 07/30/24 22:23 MDM - Weakness MDM Narrative Medical decision making narrative: patient hypoglycemic at home. At scene ate peanut butter. by the time she arrived here she was asymptomatic except she felt cold. Serial troponin neg. d-dimer elevated but CTA chest without acute findings. BS remained elevated while here. UA clear. Patient discharged home to follow up with her doctor Lab Data Labs: Lab Results 07/30/24 07/30/24 07/31/24 Range/Units 22:26 22:34 01:52 WBC 9.1 (4.0-11.0) 10^3/uL RBC 5.03 (4.20-5.40) 10^6/uL Hgb 13.5 (12.0-16.0) g/dL Hct 42.1 (36.0-48.0) % MCV 83.7 (81.0-99.0) fL MCH 26.8 (26.7-34.0) pg MCHC 32.1 (29.9-35.2) g/dL RDW 15.9 H (11.0-15.0) % Plt Count 176 (150-450) 10^3/uL MPV 11.7 (9.5-13.5) fL Neut % (Auto) 84.1 H (43.0-75.0) % Lymph % (Auto) 10.6 L (20.5-60.0) % [place] % (Auto) 4.2 (1.7-12.0) % Eos % (Auto) 0.1 L (0.9-7.0) % Baso % (Auto) 0.7 (0.2-2.0) % Neut # (Auto) 7.7 H (1.4-6.5) 10^3/uL Lymph # (Auto) 1.0 L (1.2-3.8) 10^3/uL [place] # (Auto) 0.4 (0.3-0.8) 10^3/uL Eos # (Auto) 0.0 (0.0-0.7) 10^3/uL Baso # (Auto) 0.1 (0.0-0.1) 10^3/uL Abs Immat Gran (auto) 0.03 (0.00-0.03) 10^3/uL Imm/Tot Granulo (auto) 0.3 (0.0-0.5) % D-Dimer 0.97 H* (<=0.59) mg/L FEU Sodium 138 (136-145) mmol/L Potassium 4.8 (3.5-5.1) mmol/L Chloride 101 (98-107) mmol/L Carbon Dioxide 28.4 (21.0-32.0) mmol/L Anion Gap 13.4 BUN 24.0 H (7.0-18.0) mg/dL Creatinine 1.19 H (0.55-1.02) mg/dL Est GFR ( Amer) 53 L (>=60 mL/min/1.73m^2) Est GFR (Non-Af Amer) 44 L (>=60 mL/min/1.73m^2) BUN/Creatinine Ratio 20.2 Glucose 160 H (74-106) mg/dL Lactate 2.3 H* (0.4-2.0) mmol/L Calcium 10.4 H (8.5-10.1) mg/dL Total Bilirubin 0.6 (0.2-1.0) mg/dL AST 37 (15-37) U/L ALT 32 (14-59) U/L Alkaline Phosphatase 83 (46-116) U/L Troponin I High Sens 18.6 (4.0-51.3) pg/mL Total Protein 7.7 (6.4-8.2) g/dL Albumin 4.0 (3.4-5.0) g/dL Globulin 3.7 g/dL Albumin/Globulin Ratio 1.1 Urine Color Lt. yellow (YELLOW) Urine Clarity Clear (CLEAR) Urine pH 6.0 (5.0-9.0) Ur Specific [place] <=1.005 A (1.005-1.025) Urine Protein Negative (NEG/TRACE) mg/dL Urine Glucose (UA) 500 A (NEGATIVE) mg/dL Urine Ketones 15 A (NEGATIVE) mg/dL Urine Occult Blood Negative (NEGATIVE) Urine Nitrite Negative (NEGATIVE) Urine Bilirubin Negative (NEGATIVE) Urine Urobilinogen 1.0 (0.2-1.0) EU/dL Ur Leukocyte Esterase Small A (NEGATIVE) Urine RBC 0-2 (0-2) #/HPF Urine WBC 2-5 A (NONE SEEN) #/HPF Ur Squamous Epith Cells Rare (NONE/RARE) #/LPF Urine Crystals None seen (None Seen) #/HPF Urine Bacteria None seen (NONE SEEN) #/HPF Urine Casts None seen (NONE SEEN) #/LPF Urine Mucus None seen (NONE SEEN) Ur Culture Indicated? No POC Glucose 144 H (74-106) mg/dL 07/31/24 07/31/24 Range/Units 02:21 02:56 WBC (4.0-11.0) 10^3/uL RBC (4.20-5.40) 10^6/uL Hgb (12.0-16.0) g/dL Hct (36.0-48.0) % MCV (81.0-99.0) fL MCH (26.7-34.0) pg MCHC (29.9-35.2) g/dL RDW (11.0-15.0) % Plt Count (150-450) 10^3/uL MPV (9.5-13.5) fL Neut % (Auto) (43.0-75.0) % Lymph % (Auto) (20.5-60.0) % [place] % (Auto) (1.7-12.0) % Eos % (Auto) (0.9-7.0) % Baso % (Auto) (0.2-2.0) % Neut # (Auto) (1.4-6.5) 10^3/uL Lymph # (Auto) (1.2-3.8) 10^3/uL [place] # (Auto) (0.3-0.8) 10^3/uL Eos # (Auto) (0.0-0.7) 10^3/uL Baso # (Auto) (0.0-0.1) 10^3/uL Abs Immat Gran (auto) (0.00-0.03) 10^3/uL Imm/Tot Granulo (auto) (0.0-0.5) % D-Dimer (<=0.59) mg/L FEU Sodium (136-145) mmol/L Potassium (3.5-5.1) mmol/L Chloride (98-107) mmol/L Carbon Dioxide (21.0-32.0) mmol/L Anion Gap BUN (7.0-18.0) mg/dL Creatinine (0.55-1.02) mg/dL Est GFR ( Amer) (>=60 mL/min/1.73m^2) Est GFR (Non-Af Amer) (>=60 mL/min/1.73m^2) BUN/Creatinine Ratio Glucose (74-106) mg/dL Lactate 0.8 (0.4-2.0) mmol/L Calcium (8.5-10.1) mg/dL Total Bilirubin (0.2-1.0) mg/dL AST (15-37) U/L ALT (14-59) U/L Alkaline Phosphatase (46-116) U/L Troponin I High Sens 25.6 (4.0-51.3) pg/mL Total Protein (6.4-8.2) g/dL Albumin (3.4-5.0) g/dL Globulin g/dL Albumin/Globulin Ratio Urine Color (YELLOW) Urine Clarity (CLEAR) Urine pH (5.0-9.0) Ur Specific [place] (1.005-1.025) Urine Protein (NEG/TRACE) mg/dL Urine Glucose (UA) (NEGATIVE) mg/dL Urine Ketones (NEGATIVE) mg/dL Urine Occult Blood (NEGATIVE) Urine Nitrite (NEGATIVE) Urine Bilirubin (NEGATIVE) Urine Urobilinogen (0.2-1.0) EU/dL Ur Leukocyte Esterase (NEGATIVE) Urine RBC (0-2) #/HPF Urine WBC (NONE SEEN) #/HPF Ur Squamous Epith Cells (NONE/RARE) #/LPF Urine Crystals (None Seen) #/HPF Urine Bacteria (NONE SEEN) #/HPF Urine Casts (NONE SEEN) #/LPF Urine Mucus (NONE SEEN) Ur Culture Indicated? POC Glucose 158 H (74-106) mg/dL Discharge Plan Discharge Chief Complaint: Weakness Clinical Impression: Hypoglycemia Patient Disposition: Home, Self-Care Mode of Transportation: Private Vehicle Prescriptions / Home Meds: No Action amlodipine 5 mg tablet 5 mg PO DAILY bupropion HCl 300 mg tablet extended release 24 hr 300 mg PO DAILY latanoprost 0.005 % drops 1 drp OPHTHALMIC (EYE) QPM losartan 100 mg tablet 100 mg PO DAILY rosuvastatin 20 mg tablet 20 mg PO DAILY Januvia 100 mg tablet 100 mg PO DAILY trazodone 50 mg tablet 50 mg PO DAILY Print Language: Turkish Instructions: Hypoglycemia in a Person with Diabetes (ED) Additional Instructions: Follow up with your family DR, return to ER for any problems or concerns. Referrals: DEWAYNE RICHEY [Primary Care Provider, Family Practice] - 1 week
[2024-07-30 22:55] LABS: Basophils Absolute Auto 0.1 10^3/uL (0.0-0.1); Basophils Percent Auto 0.7 % (0.2-2.0); Eosinophils Percent Auto 0.1 % (0.9-7.0); Hematocrit 42.1 % (36.0-48.0); Hemoglobin 13.5 g/dL (12.0-16.0); Immature Granulocytes Abs Auto 0.03 10^3/uL (0.00-0.03); Immature Granulocytes Pct Auto 0.3 % (0.0-0.5); Lymphocytes Percent Auto 10.6 % (20.5-60.0); Mean Corpuscular HGB Conc 32.1 g/dL (29.9-35.2); Mean Corpuscular Hemoglobin 26.8 pg (26.7-34.0); Mean Corpuscular Volume 83.7 fL (81.0-99.0); Mean Platelet Volume 11.7 fL (9.5-13.5); Monocytes Absolute Auto 0.4 10^3/uL (0.3-0.8); Monocytes Percent Auto 4.2 % (1.7-12.0); Neutrophils Absolute Auto 7.7 10^3/uL (1.4-6.5); Neutrophils Percent Auto 84.1 % (43.0-75.0); Platelet Count 176 10^3/uL (150-450); Red Blood Count 5.03 10^6/uL (4.20-5.40); Red Cell Distribution Width 15.9 % (11.0-15.0); White Blood Count 9.1 10^3/uL (4.0-11.0)
[2024-07-30] MEDS: ONDANSETRON PF 4 MG/2 ML VIAL IV (22:55)
[2024-07-30] MEDS: 0.9 % SODIUM CHLORIDE 1,000 ML 100 ML IV (22:56)
[2024-07-30 23:11] LABS: Anion Gap 13.4
[2024-07-30 23:14] LABS: Alanine Aminotransferase 32 U/L (14-59); Albumin Globulin Ratio 1.1; Alkaline Phosphatase 83 U/L (46-116); Aspartate Amino Transferase 37 U/L (15-37); BUN Creatinine Ratio 20.2; Bilirubin Total 0.6 mg/dL (0.2-1.0); Calcium 10.4 mg/dL (8.5-10.1); Carbon Dioxide 28.4 mmol/L (21.0-32.0); Chloride 101 mmol/L (98-107); Estimated GFR (African America 53 (>=60 mL/min/1.73m^2); Estimated GFR (Non-African Ame 44 (>=60 mL/min/1.73m^2); Globulin 3.7 g/dL; Glucose 160 mg/dL (74-106); Potassium 4.8 mmol/L (3.5-5.1); Sodium 138 mmol/L (136-145); Total Protein 7.7 g/dL (6.4-8.2)
[2024-07-30 23:18] LABS: Lactate/Lactic Acid 2.3 mmol/L (0.4-2.0)
[2024-07-30 23:19] LABS: D Dimer 0.97 mg/L FEU (<=0.59); Troponin I High Sensitivity 18.6 pg/mL (4.0-51.3)
[2024-07-31] VITALS (29 sets, daily range): BP systolic 121–156; BP diastolic 57–77; PULSE 84–112; TEMP 36.4; O2SAT 95–100
[2024-07-31 01:57] LABS: Bilirubin Urine NEGATIVE (NEGATIVE); Blood Urine NEGATIVE (NEGATIVE); Clarity Urine CLEAR (CLEAR); Color Urine LT. YELLOW (YELLOW); Glucose Urine UA 500 mg/dL (NEGATIVE); Ketones Urine 15 mg/dL (NEGATIVE); Leukocyte Esterase Urine SMALL (NEGATIVE); Nitrite Urine NEGATIVE (NEGATIVE); Protein Urine NEGATIVE (NEG/TRACE); Specific Gravity Urine <=1.005 (1.005-1.025)
[2024-07-31 02:05] LABS: Bacteria Urine NONE SEEN #/HPF (NONE SEEN); Cast Seen? NONE SEEN #/LPF (NONE SEEN); Crystals Seen? None Seen #/HPF (None Seen); Mucus Urine NONE SEEN (NONE SEEN); RBC Urine 0-2 #/HPF (0-2); Squamous Epithelial Cell Urine RARE #/LPF (NONE/RARE); Urine Culture Indicated NO
[2024-07-31 02:23] LABS: Glucometer 158 mg/dL (74-106)
[2024-07-31 03:21] LABS: Lactate/Lactic Acid 0.8 mmol/L (0.4-2.0); Troponin I High Sensitivity 25.6 pg/mL (4.0-51.3)
== END 2024-07-31 04:09 | disposition home or self-care (01) ==
PROVIDERS: Emergency Provider Internal Medicine; PCP Family Medicine
DX: E11.649 Type 2 diabetes mellitus with hypoglycemia without coma (principal); I25.10 Atherosclerotic heart disease of native coronary artery without angina pectoris; Z95.5 Presence of coronary angioplasty implant and graft; R79.89 Other specified abnormal findings of blood chemistry; Z79.84 Long term (current) use of oral hypoglycemic drugs
CPT/HCPCS: 36415; 71045; 71275; 80053; 81001; 82948; 83605; 84484; 85025; 85378; 93005; 96374; 99285; J2405; Q9967

== ENCOUNTER 2024-12-26 09:40 | Outpatient (OUT) | payer MEDICARE, SELFPAY ==
--- OUTSIDE RECORDS SUMMARY | 2024-12-26 09:47 | XMS_ITS | CCD ---
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 Domonique Elena Primary Care [...] McGuinn II, Dr. Zak Kendall Attending Unavailable Abramuinpatricia II, Dr. Zak Kendall Referring Unavailable Hatfield, [...] ., DR DOMONIQUE Cuevas Primary Care Unavailable BROCKTON, DR JAVAD Katz Consulting Unavailable HATFIELD ., [...] Physician Domonique Hatfield MD Primary Care Provider Dewayne Richey. Attending Unavailable Dewayne Richey. Admitting Unavailable Dewayne Richey. Attending Unavailable Dewayne Richey. Attending Unavailable Dewayne Richey. Admitting Unavailable Denia Rowell Attending Unavailable Denia Rowell Attending Unavailable Denia Rowell Attending Unavailable Denia Rowell Attending Unavailable Rowell, Denia L Attending Unavailable Rowell, Denia L Attending Unavailable Mat Dewayne E. Attending Unavailable Mat, Dewayne ERodger Admitting Unavailable Dewayne Richey ERodger Attending Unavailable Dewayne Richey MD Primary Care Provider GARY CHÁVEZ Attending Unavailable HATFIELDDOMONIQUE MANUEL LETTY Primary Care Unavailable ZAK HANCOCK Attending Unavailable GARY CHÁVEZ Referring Unavailable DEWAYNE RICHEY Primary Care Unavailable Dewayne Richey E. Attending Unavailable UVALDO, DOMINIC A Attending Unavailable Mat Dewayne E. Attending Unavailable Mat, Dewayne E. Attending Unavailable Ross, Dewayne E. Admitting Unavailable Ross, Dewayne E. Admitting Unavailable Ross, Dewayne E. Attending Unavailable Rowell, Denia L Attending Unavailable Rowell, Denia L Attending Unavailable Rowell, Denia L Attending Unavailable Rowell, Denia L Attending Unavailable Rowell, Denia L Attending Unavailable Rowell, Denia L Attending Unavailable Rowell, Denia L Attending Unavailable Rowell, Denia L Attending Unavailable Orwell, Denia L Attending Unavailable Rowell, Denia L Attending Unavailable Mat Dewayne E. Attending Unavailable Mat Dewayne E. Attending Unavailable Jennifer, RN FLOAT Pilar L Attending Unavailable Rowell, Denia L Attending [...] Attending Unavailable Mat, Dewayne E. Attending Unavailable Mat, Dewayne E. Attending Unavailable Mat, Dewayne E. Attending Unavailable Mat, Dewayne E. Attending Unavailable UVALDO, DOMINIC A Attending Unavailable UVALDO, DOMINIC A Admitting Unavailable UVALDO, DOMINIC A Attending Unavailable Rowell, Denia L Attending Unavailable Rowell, Denia L Attending Unavailable UVALDO, DOMINIC A Admitting Unavailable UVALDO, DOMINIC A Attending Unavailable UVALDO, DOMINIC A Attending Unavailable UVALDO, DOMINIC A Attending Unavailable UVALDO, DOMINIC A Admitting Unavailable UVALDO, DOMINIC A Attending Unavailable UVALDO, CLAIMS SERVICE REPRESENTATIVE DOMINIC A Attending Unavailabl e UVALDO, YANY Dumont Admitting Magdalena Maher Attending Unavailable Magdalena Michelle Attending Unavailable Allergies Allergy ClassificationReported Allergen(s)Allergy TypeDate of OnsetReaction(s) Facility (20 sources)Diclofenac / miSOPROStol; Translations: [diclofenac-misoprostol]Drug AllergyUnknown (qualifier value)[facility] (5 sources)Diclofenac / miSOPROStol; Translations: [Arthrotec][facility] ([facility] sources)No Known Medication Allergies; Translations: [No Known Medication Allergies]Propensity to adverse reactions (disorder)[facility] Medications Current Medications MedicationDrug Class(es)DatesSig (Normalized)Sig (Original)amLODIPine 5 mg oral tablet (20 sources)Dihydropyridine Calcium Channel BlockerStart: 44-32-7454soaf 0.5 tablet by mouth once dailyamLODIPine 10 mg Tab See Instructions, 1/2 tab(s) Oral Daily, Refills(s) 0 Start Date: 05/25/22 Status: OrderedStart: 91-47-3246hlyq 5 mg by mouth once dailyamlodipine 5 mg, Oral, Daily, Refills(s) 0 Start Date: 12/21/22 Status: Orderedtake 1 tablet by mouth once dailyamLODIPine Besylate 10 MG Oral Tablet TAKE 1 TABLET DAILY DIRECTED. Quantity: 90 Refills: 3 Ordered: 22-Jul-2021 DO ActiveAspir-81 81 MG (5 sources)Aspir-81 81 MG Orally Once a day Activeaspirin 81 mg delayed release oral tablet (20 sources)Platelet Aggregation Inhibitor, Nonsteroidal Anti-inflammatory Drug Start: 21-27-0240erpw 1 tablet by mouth once dailyaspirin 81 mg Oral EC Tab 81 mg = 1 tab(s), Oral, Daily, Refills(s) 0 Start Date: 05/25/22 Status: Ordered Start: 55-54-0434auqg 1 tablet by mouth once dailyAspirin 81 mg Tablet,Chewable Active 81 MG PO Daily November 27, 2019 11:00pmbiotin 1 mg chewable tablet (19 sources)Start: 35-12-4336tpsk 1 tablet by mouth once dailyBiotin 1,000 mcg tablet,chewable Active 1000 MCG PO Daily September 27, 2023 11:00pmtake 1 tablet by mouth every twenty-four hoursBiotin 1000 MCG 1 tablet Orally Once a day Activetake 1 tablet by mouth every twenty-four hoursBiotin 1000 MCG 1 tablet Orally Once a day ActiveBiotin 1000 MCG Oral Tablet TAKE DIRECTED PER PACKAGE INSTRUCTIONS. Quantity: 0 Refills: 0 Ordered: 22-Jul-2021 DO ActiveBiotin Active 24 hr buPROPion hydrochloride 300 mg extended release oral tablet (6 sources)AminoketoneStart: 85-21-2366wjzk 1 tablet by mouth once daily buPROPion 300 mg/24 hours ER Tab 300 mg = 1 tab(s), Oral, Daily, # 90 tab(s), Refills(s) 1, Pharmacy: [facility], 158, cm, 03/28/24 15:03:00 EST, Height/Length Dosing, 77.1, kg, 03/28/24 15:03:00 EST, Weight Dosing Start Date: 03/31/24 Status: OrderedStart: 77-12-9506tuwm 1 tablet by mouth once daily in the morningWellbutrin XL 150 mg 24 hr tablet Take 1 tablet (150 mg) by mouth once daily in the morning. 01/17/2024 ActiveStart: 94-98-9492eyfi 1 tablet by mouth every twenty-four hoursWellbutrin XL 150 mg/24 hours Tab-ER 150 mg = 1 tab(s), Oral, q24hr, # 90 tab(s), Refills(s) 0, Pharmacy: [facility], 158, cm, 01/17/24 9:38:00 EST, Height/Length Dosing, 79.9, kg, 01/17/24 9:38:00 EST, Weight Dosing Start Date: 01/17/24 Status: Orderedcalcium carbonate 1500 mg oral tablet (4 sources)take 1 tablet by mouth every twenty-four hoursCalcium 600 MG 1 tablet with meals Orally Once a day Activetake 1 tablet by mouth every twenty-four hoursCalcium 600 MG 1 tablet with meals Orally Once a day Activecinnamon bark 500 mg oral capsule (15 sources)Start: 19-45-8017ielt 1 capsule by mouth once dailyCinnamon Bark 500 mg capsule Active 1000 MG PO Daily March 14, 2024 12:00amtake 1 capsule by mouth once dailyCinnamon 500 mg capsule Take 1 capsule (500 mg) by mouth once daily. Activecinnamon preparation 500 mg oral tablet (4 sources)Non-Standardized Food Allergenic Extracttake 500 mg by mouth once dailyCinnamon 500 MG as directed Orally ONCE A DAY ActiveCinnamon Active clopidogrel 75 mg oral tablet (20 sources)P2Y12 Platelet InhibitorStart: 12-11-2020 End: 02-47-5984dlod 1 tablet by mouth once dailyclopidogrel 75 mg Tab 75 mg = 1 tab(s), Oral, Daily, Refills(s) 0 Start Date: 05/25/22 Status: Ordered escitalopram 5 mg oral tablet (10 sources)Serotonin Reuptake InhibitorStart: 07-34-4028yyvw 1 tablet by mouth once dailyLexapro 5 mg oral tablet 5 mg = 1 tab(s), Oral, Daily, # 90 tab(s), Refills(s) 0, Pharmacy: [facility], 158, cm, 09/27/23 13:00:00 EDT, Height/Length Dosing, 77.8, kg, 09/27/23 13:00:00 EDT, Weight Dosing Start Date: 09/27/23 Status: OrderedFoltanx oral tablet (14 sources)Start: 26-25-9393Jfveojc oral tablet 1 tab(s), Oral, Daily, 90 tab(s), Refill(s) 0, [facility] #[id number], 158, cm, 03/30/23 10:02:00 EST, Height/Length Dosing, 82.6, kg, 03/30/23 10:02:00 EST, Weight Dosing Start Date: 03/30/23 Status: OrderedStart: 67-64-7713Xwrfbdo oral tablet 1 tab(s), Oral, Daily, 90 tab(s), Refill(s) 0, [facility] #[id number], 158, cm, 12/21/22 13:46:00 EST, Height/Length Dosing, 81.6, kg, 12/21/22 13:46:00 EST, Weight Dosing Start Date: 12/22/22 Status: OrderedFreestyle Sam 2 Flash Glucose Monitoring 14 Day System (Sensor) (20 sources)Start: 88-01-9732Issffctto Sam 2 Flash Glucose Monitoring 14 Day System (Sensor) Freestyle Sam 2 Flash Glucose Monitoring 14 Day System (Sensor), See Instructions, 6 EA, 0, Freestyle Sam 2 Flash Glucose Monitoring 14 Day System (Sensor). Replace sensor every 14 days., [facility], [facility], 158, cm, 01/17/24 9:38:00 EST, Height/Length Dosing, 79.9, kg, 01/17/24 9:38:00 EST, Weight Dosing Start Date: 01/27/24 Status: OrderedStart: 11-12-2023 Freestyle Sam 2 Flash Glucose Monitoring 14 Day System (Sensor) Freestyle Sam 2 Flash Glucose Monitoring 14 Day System (Sensor), See Instructions, 6 EA, 0, Freestyle Sam 2 Flash Glucose Monitoring 14 Day System (Sensor). Replace sensor every 14 days., [facility], 158, cm, 09/27/23 13:00:00 EDT, Height/Length Dosing, 77.8, kg, 09/27/23 13:00:00 EDT, Weight Dosing Start Date:11/12/23 Status: OrderedStart: 25-51-9306Gcptdvcmu Sam 2 Flash Glucose Monitoring 14 Day System (Sensor) Freestyle Sam 2 Flash Glucose Monitoring 14 Day System (Sensor), See Instructions, 6 EA, 0, Freestyle Sam 2 Flash Glucose Monitoring 14 Day System (Sensor). Replace sensor every 14 days., [facility], 158, cm, 07/20/23 13:42:00 EDT, Height/Length Dosing, 79.3, kg, 07/20/23 13:55:00 EDT, Weight Dosing Start Date:08/17/23 Status: OrderedStart: 16-20-7533Wxalvcivh Sam 2 Flash Glucose Monitoring 14 Day System (Sensor) Freestyle Sam 2 Flash Glucose Monitoring 14 Day System (Sensor), See Instructions, 6 EA, 0, Freestyle Sam 2 Flash Glucose Monitoring 14 Day System (Sensor). Replace sensor every 14 days., [facility] #[id number], [facility], 158, cm, 03/30/23 10:02:00 EST, Height/Length Dosing, 82.6, kg, 03/30/23 10:02:00 EST, Weight Dosing Start Date: 04/20/23 Status: OrderedJorge KwgaloPen (1 source)HumaLOG KwikPen Active3 ml insulin glargine 100 unt/ml pen injector (20 sources)Insulin AnalogStart: 00-39-1435Qpulkr Solostar Pen 100 units/mL subcutaneous solution See Instructions, INJECT SUBCUTANEOUSLY 15 UNITS ONCE DAILY AT BEDTIME, # 15 mL, Refills(s) 3, Pharmacy: [facility], 158, cm, 09/27/23 13:00:00 EDT, Height/Length Dosing, 77.8, kg, 09/27/23 13:00:00 EDT, Weight Dosing Start Date: 10/29/23 Status: OrderedStart: 23-66-0709demzcb 15 [IU] by subcutaneous injection once daily in the eveningInsulin Glargine (Lantus U- 100 Insulin) 100 unit/mL solution Active 15 UNIT SUBCUT Every evening September 28, 2023 9:35amStart: 97-95-7653Feuoxh Solostar U-100 Insulin 100 unit/mL (3 mL) pen Inject 15 Units under the skin once daily at bedtime. 05/19/2023 Active Start: 04-97-2887Lbymil Solostar Pen 100 units/mL subcutaneous solution 15 unit(s), SubCutaneous, Once a day (at bedtime), # 15 mL, Refills(s) 3, Pharmacy: [facility] ([facility]), 157.5, cm, 10/05/22 16:38:00 EDT, Height/Length Dosing, 82.4, kg, 10/05/22 16:38:00 EDT, Weight Dosing Start Date: 10/21/22 Status: OrderedStart: 23-62-4507Duwnqs Solostar Pen 100 units/mL subcutaneous solution 15 unit(s), SubCutaneous, Once a day (at bedtime), Refills(s) 0 Start Date: 05/25/22 Status: OrderedStart: 11-26-2019 End: 47-27-1016ziprmc 20 [IU] by subcutaneous injection twice dailyInsulin Glargine (Lantus U-100 Insulin) 100 unit/mL solution Discontinued 20 UNIT SUBCUT Twice daily November 25, 2019 11:00pm September 28, 2023 9:40am sliding scale insulin glargine (Lantus U-100 Insulin) 100 unit/mL injection Inject under the skin. 0 Activeinject 15 [IU] by subcutaneous injection once daily at bedtime Lantus 100 UNIT/ML 15 units Subcutaneous qhs Activeinject 20 [IU] by subcutaneous injection once daily at bedtimeLantus 100 UNIT/ML 20 units Subcutaneous qhs Active3 ml insulin lispro 100 unt/ml pen injector (20 sources)Insulin AnalogStart: 36-64-3702XgtvURB KwikPen 100 units/mL injectable solution See Instructions, INJECT SUBCUTANEOUSLY BEFORE MEALS & AT BEDTIME COVERAGE 150-200 2U, 201-250 4U, 251-300 6U. 301-350 8U. 351-400 10U WITH CARB COVERAGE, # 45 mL, Refills(s) 3, Pharmacy: [facility], 158, cm, 09/27/23 13:00:00 EDT, Height/Length Dosing, 77.8, kg, 09/27/23 13:00:00 EDT, Weight Dosing Start Date: 10/12/23 Status: OrderedStart: 75-70-0667LrqoKQE KwikPen 100 units/mL injectable solution See Instructions, AC & HS coverage 150- 200 2U,201-250 4U, 251-300 6U. 301-350 8U. 351-400 10U with carb coverage, # 15 EA, Refills(s) 3, Pharmacy: [facility] ([facility]), 157.5, cm, 10/05/22 16:38:00 EDT, Height/Length Dosing, 82.4, kg, 10/05/22 16:38:00 EDT, Weight Dosing Start Date: 12/01/22 Status: OrderedStart: 51-75-5598WmbdIBP KwikPen 100 units/mL injectable solution See Instructions, AC & HS coverage 150- 200 2U,201-250 4U, 251-300 6U. 301-350 8U. 351-400 10U with carb coverage, Refills(s) 0 Start Date: 05/25/22 Status: OrderedStart: 11-26-2019 End: 34-95-7179Lkqkchw Lispro (Humalog Kwikpen Insulin) 100 unit/mL insulin pen Active 0 UNIT SUBCUT Before meals and at bedtime November 25, 2019 11:00pm Please contact the information source for Protocol details.HumaLOG KwikPen Insulin 100 unit/mL injection Inject under the skin 3 times daily (morning, midday,late afternoon). Per sliding scale ActiveHumaLOG KwikPen 100 UNIT/ML as directed Subcutaneous SLIDING SCALE BcauujT-Gweghqlasiev-I1-B12 3-35-2 MG (4 sources)take 1 tablet by mouth twice kmxswN-Pvyevbvgnxan-Q6-B12 3-35-2 MG 1 tablet Orally Twice a day Activelatanoprost 0.05 mg/ml ophthalmic solution (20 sources)Prostaglandin AnalogStart: 34-56-3027drma 1 drop(s) into the eye(s) once daily in the eveningLatanoprost 0.005 % drops Active 1 DROPS OPHTHALMIC Every evening September 27, 2023 11:00pmStart: 67-18-3500rbnx 1 drop(s) into the eye(s) once daily in the eveningLatanoprost Active 1 DROPS OPHTHALMIC Every evening September 28, 2023 12:00amStart: 14-93-6163mkunpomhanl Opth 0.005% Gunjan 1 drop(s), INSERT 1 drop IN BOTH EYES AT BEDTIME Start Date: 07/20/23 Status: OrderedStart: 32-87-5379ulcu 1 drop(s) into the eye(s) at bedtimelatanoprost (Xalatan) 0.005 % ophthalmic solution INSERT 1 drop IN BOTH EYES AT BEDTIME 07/13/2023 Activelosartan potassium 100 mg oral tablet (20 sources)Angiotensin 2 Receptor BlockerStart: 62-75-3541zlno 1 tablet by mouth once dailylosartan 100 mg Tab See Instructions, TAKE 1 TABLET BY MOUTH DAILY, # 90 tab(s), Refills(s) 3, Pharmacy: [facility], 158, cm, 06/29/23 10:10:00 EDT, Height/Length Dosing, 79.5, kg, 06/29/23 10:10:00 EDT, Weight Dosing Start Date: 07/14/23 Status: OrderedLosartan Potassium 50 MG Orally qhs Activelutein 20 mg / zeaxanthin 1 mg oral capsule (15 sources)Start: 55-25-1231lhao 1 capsule by mouth once dailyLutein-Zeaxanthin 20 mg- 1,000 mcg capsule Active 1 CAP PO daily September 27, 2023 11:00pmLutein- Zeaxanthin 25-5 MG as directed Orally ONCE A DAY ActiveLutein-Zeaxanthin 25-5 MG as directed Orally ONCE A DAY ActiveLutein-Zeaxanthin ActiveMultivitamin preparation (6 sources)Start: 04-52-0912yqwu 1 tablet by mouth once dailyMultivitamin Active 1 TAB PO Daily September 28, 2023 12:00amtake 1 tablet by mouth once daily Multivitamin - 1 tablet Orally Once a day ActiveMultivitamin ActiveMultivitamin tablet (1 source)Start: 99-62-0179kygc 1 tablet by mouth once dailyMultivitamin tablet Active 1 TAB PO Daily September 27, 2023 11:00pmmv-mn/folic ac/calcium/vit K1 (WOMEN'S 50 PLUS MULTIVITAMIN ORAL) (1 source)take 1 tablet by mouth once daily before mealtimemv-mn/folic ac/calcium/vit K1 (WOMEN'S 50 PLUS MULTIVITAMIN ORAL) Take 1 tablet by mouth once daily. Activenitroglycerin 0.4 mg sublingual tablet (20 sources)Nitrate VasodilatorStart: 00-60-8777CeiytRnzv 0.4 mg Tab See Instructions, use as needed for chest pain, # 25 tab(s), Refills(s) 0, Pharmacy: [facility], 158, cm, 03/30/23 10:02:00 EST, Height/Length Dosing, 82.6, kg, 03/30/23 10:02:00 EST, Weight Dosing Start Date: 03/30/23 Status: OrderedStart: 28-00-0993XoxpqQfpx 0.4 mg Tab See Instructions, use as needed for chest pain, Refills(s) 0 Start Date: 05/25/22 Status: OrderedStart: 18-94-2716Speitqxencskq 0.4 mg tablet, sublingual Active 0.4 MG SUBLINGUAL Q5M as needed for chest pain 25 30October 2019 11:00pm do not exceed 3 doses per episodeNitroglycerin ActivePen Schneider (20 sources)Start: 84-65-1264Twi Schneider Pen Schneider, See Instructions, 3 EA, 3, To be used with admin. of insulin QID. Dx: E11. 1ea equals 1box, [facility], 158, cm, 07/20/23 13:42:00 EDT, Height/Length Dosing, 79.3, kg, 07/20/23 13:55:00 EDT, Weight Dosing Start Date: 08/11/23 Status: Ordered Start: 91-58-0440Xdr Schneider Pen Schneider, See Instructions, 12 EA, 1, To be used with admin. of insulin QID. Dx: E11. 1 EA equals 1box, [facility], 158, cm, 12/21/22 13:46:00 EST, Height/Length Dosing, 81.6, kg, 12/21/22 13:46:00 EST, Weight Dosing Start Date: 02/22/23 Status: OrderedStart: 17-49-2961Mba Schneider Pen Schneider, See Instructions, 1 EA, 1, To be used with admin. of insulin QID. Dx: E11 1ea equals 1box, [facility], [facility], 158, cm, 12/21/22 13:46:00 EST, Height/Length Dosing, 81.6, kg, 12/21/22 13:46:00 EST, Weight Dosing Start Date: 02/22/23 Status: OrderedStart: 24-21-4831Zpr Schneider Pen Schneider, See Instructions, 300 EA, 1, To be used with admin. of insulin QID. Dx: E11., [facility], 158, cm, 12/21/22 13:46:00 EST, Height/Length Dosing, 81.6, kg, 12/21/22 13:46:00 EST, Weight Dosing Start Date: 01/05/23 Status: Orderedrosuvastatin calcium 20 mg oral tablet (20 sources)HMG-CoA Reductase InhibitorStart: 95-00-6145mjxd 1 tablet by mouth once dailyrosuvastatin 20 mg Tab 20 mg = 1 tab(s), Oral, Daily, Refills(s) 0 Start Date: 05/25/22 Status: OrderedRosuvastatin Calcium ActiveSITagliptin 25 mg oral tablet (20 sources)Dipeptidyl Peptidase 4 InhibitorStart: 76-11-2368kbxg 4 tablets by mouth once dailySitagliptin Phosphate (Januvia) 25 mg tablet Active 100 MG PO Daily March 14, 2024 10:29amStart: 03-14-2024 End: 85-69-8875qzrl 1 tablet by mouth once dailySitagliptin Phosphate (Januvia) 25 mg tablet Discontinued 25 MG PO Daily March 14, 2024 12:00amFebruary 2024 10:29amStart: 11-26-2019 End: 16-17-3271ktnh 1 tablet by mouth once dailyJanuvia 100 mg Tab See Instructions, TAKE 1 TABLET BY MOUTH DAILY, # 90 tab(s), Refills(s) 3, Pharmacy: [facility], 158, cm, 09/27/23 13:00:00 EDT, Height/Length Dosing, 77.8, kg, 09/27/23 13:00:00 EDT, Weight Dosing Start Date: 10/19/23 Status: OrderedJanuvia ActivetraZODone hydrochloride 50 mg oral tablet (20 sources)Serotonin Reuptake InhibitorStart: 34-23-4117Bwsmdxbxj 50 mg tablet Active 25 MG PO Daily at bedtime September 27, 2023 11:00pmStart: 88-49-6897ulcm 25 mg by mouth once daily at bedtimeTrazodone Active 25 MG PO Daily at bedtime September 28, 2023 12:00amStart: 56-54-5166bsyf 0.5 tablet by mouth once daily at bedtimetraZODONE 50 mg Tab See Instructions, TAKE ONE-HALF TABLET BY MOUTH ONCE DAILY AT BEDTIME, # 45 tab(s), Refills(s) 3, Pharmacy: [facility], 158, cm, 07/20/23 13:42:00 EDT, Height/Length Dosing, 79.3, kg, 07/20/23 13:55:00 EDT, Weight Dosing Start Date: 09/07/23 Status: OrderedStart: 06-29-2023 traZODONE 50 mg Tab 25 mg = 0.5 tab(s), Oral, Once a day (at bedtime), # 45 tab(s), Refills(s) 0, Pharmacy: [facility], 158, cm, 06/29/23 10:10:00 EDT, Height/Length Dosing, 79.5, kg, 06/29/23 10:10:00 EDT, Weight Dosing Start Date: 06/29/23 Status: OrderedStart: 47-88-1539adjQPTJSO 50 mg Tab 25 mg = 0.5 tab(s), Oral, Once a day (at bedtime), # 15 tab(s), Refills(s) 0, Pharmacy: [facility] #[id number], 158, cm, 03/30/23 10:02:00 EST, Height/Length Dosing, 82.6, kg, 03/30/23 10:02:00 EST, Weight Dosing Start Date: 06/07/23 Status: OrderedStart: 66-21-6777diiBACKRR 50 mg Tab 25 mg = 0.5 tab(s), Oral, Once a day (at bedtime), # 15 tab(s), Refills(s) 0, Pharmacy: [facility], 158, cm, 03/30/23 10:02:00 EST, Height/Length Dosing, 82.6, kg,03/30/23 10:02:00 EST, Weight Dosing Start Date: 04/28/23 Status: Orderedtake 1 tablet by mouth once daily at bedtimetraZODone (Desyrel) 50 mg tablet Take 1 tablet (50 mg) by mouth once daily at bedtime. Activetake 0.5 tablet by mouth once daily at bedtime traZODone (Desyrel) 50 mg tablet Take 0.5 tablets (25 mg) by mouth once daily at bedtime. 0 Active Completed/Discontinued Medications MedicationDrug Class(es)DatesSig (Normalized)Sig (Original)amitriptyline hydrochloride 25 mg oral tablet (7 sources)Tricyclic AntidepressantStart: 11-26-2019 End: 21-52-5512zrhs 2 tablets by mouth once daily at bedtimeAmitriptyline 25 mg tablet Discontinued 50 MG PO Daily at bedtime November 25, 2019 11:00pm September 28, 2023 9:35amStart: 11-26-2019 End: 86-25-5193bpkv 50 mg by mouth once daily at bedtimeAmitriptyline Discontinued 50 MG PO Daily at bedtime November 26, 2019 12:00am September 28, 2023 10:35amtake 1 tablet by mouth at bedtimeAmitriptyline HCl - 25 MG Oral Tablet TAKE 1 TABLET AT BEDTIME. Quantity: 0 Refills: 0 Ordered: 22-Jul-2021 DO ActiveAmitriptyline HCl 50 MG 2 Orally qhs Activeatorvastatin 20 mg oral tablet (2 sources)HMG-CoA Reductase InhibitorStart: 11-26-2019 End: 71-91-3662glsd 1 tablet by mouth once daily at bedtimeAtorvastatin 20 mg tablet Discontinued 20 MG PO Daily at bedtime November 25, 2019 11:00pm September 28, 2023 9:36amCalcium (9 sources)Phosphate Binder, CalciumCalcium 600 TABS TAKE 1 TABLET DAILY. Quantity: 0 Refills: 0 Ordered: 05-Dec-2021 DO ActiveCalcium Activecanagliflozin 100 mg oral tablet (3 sources)Sodium-Glucose Cotransporter 2 InhibitorStart: 11-26-2019 End: 52-76-1960jffy 1 tablet by mouth once daily in the morningCanagliflozin (Invokana) 100 mg tablet Discontinued 100 MG PO Every morning November 25, 2019 11:00pm September 28, 2023 9:36amInvokana ActiveKetorolac (8 sources)Nonsteroidal Anti-inflammatory Drug, Cyclooxygenase InhibitorStart: 85-36-6528Trgjhwn per 15 mg Apr, 15 mgStart: 90-33-6331Gshoxqo per 15 mg Jan, 30 knW-Fpifcvpyybuq-L1-B12 3-35-2 MG Oral Tablet (8 sources)take 1 tablet by mouth once szrqfM-Xbtjxoscvfhy-Q4-B12 3-35-2 MG Oral Tablet Take 1 tablet daily Quantity: 0 Refills: 0 Ordered: 22-Jul-2021 DO DbfihoC-Hqwusacfyubi-X2-B12 3-35-2 MG TABS (4 sources)L-Teyrlkesdkmk-B2-B12 3-35-2 MG TABS Take 1 tablet daily Quantity: 0 Refills: 0 Ordered: 22-Jul-2021 DO Activemeclizine hydrochloride 12.5 mg oral tablet (20 sources)AntiemeticStart: 11-28-2019 End: 79-03-1483ealh 1 tablet by mouth three times daily as needed for dizziness Meclizine 12.5 mg tablet Discontinued 12.5 MG PO Three times daily as needed for dizziness 90 November 27, 2019 11:00pm September 28, 2023 9:36amMeclizine HCl ActiveMecobal-Levomefolat Ca-B6 Phos (N-Lgpqyp-E1-B12) 3-35-2 mg tablet (2 sources)Start: 11-26-2019 End: 89-78-0186coul 1 tablet by mouth once daily in the morningMecobal- Levomefolat Ca-B6 Phos (X-Kpfgbf-W8-B12) 3-35-2 mg tablet Discontinued 1 TAB PO Every morning November 25, 2019 11:00pm September 28, 2023 9:36amStart: 11-26-2019 End: 22-58-3003qqdw 1 tablet by mouth once daily in the morningMecobal- Levomefolat Ca-B6 Phos (Q-Lsmxel-M7-B12) 3-35-2 mg tablet Discontinued 1 TAB PO Every morning November 26, 2019 12:00am September 28, 2023 10:36ammelatonin 10 mg oral capsule (12 sources)take 1 capsule by mouth at bedtimeCVS Melatonin 10 MG Oral Capsule TAKE 1 CAPSULE Bedtime Quantity: 0 Refills: 0 Ordered: 53-Etd-1730WL Activetake 1 tablet by mouth once daily at bedtime as neededMelatonin 10 MG 1 tablet at bedtime as needed Orally Once a day ActiveMelatonin 3 MG 2 Orally qhs Okgydt43 hr metoprolol succinate 50 mg extended release oral tablet (9 sources)beta-Adrenergic BlockerStart: 24-12-6836Uywxfqenvv Succinate ER 50 MG Oral Tablet Extended Release 24 Hour take 1/2 tablet daily for 2 weeks, then take 1/2 tablet every other day for 2 weeks, then discontiune. Quantity: 90 Refills: 0 Ordered: 27-Aug-2021 Zak Nguyen MD Start : 27-Aug-2021 Active Start: 11-28-2019 End: 11-40-6665tndz 1 tablet by mouth once daily in the morningMetoprolol Succinate 50 mg Tablet Extended Release 24 Hr Discontinued 50 MG PO Every morning November 27, 2019 11:00pm September 28, 2023 9:36amStart: 11-26-2019 End: 40-22-8913jljc 1 tablet by mouth once daily in the morningMetoprolol Succinate 25 mg tablet extended release 24 hr Discontinued 25 MG PO Every morning November 25, 2019 11:00pm November 28, 2019 2:42pmMetoprolol Succinate ActiveMulti Vitamin TABS (8 sources)Multi Vitamin TABS TAKE 1 TABLET DAILY. Quantity: 0 Refills: 0 Ordered: 05-Dec-2021 DO Activeticagrelor 90 mg oral tablet (3 sources)Start: 11-28-2019 End: 11-64-2682osim 1 tablet by mouth twice dailyTicagrelor (Brilinta) 90 mg Tablet Discontinued 90 MG PO Twice daily 180 90 November 27, 2019 11:00pm September 28, 2023 9:36amBrilinta ActiveTriamcinolone (8 sources)CorticosteroidStart: 57-18-7811METLTMA - 10 mg Apr, 40 mg Start: 31-37-1635ONWLTYG - 10 mg Nov, 40 mg Problems Active Problems Problem ClassificationProblemDateDocumented DateEpisodic/ChronicAdjustment disorders (20 sources)Adjustment disorder; Translations: [Prolonged grief disorder] 36-31-2552NcwyhjuTmoasil disorders (20 sources)Complex posttraumatic stress disorder; Translations: [Posttraumatic stress disorder]Onset: 375054-18-0533OqqokxrVbbfvilvk-rkbekxx, conduct, and disruptive behavior disorders (7 sources)Attention deficit hyperactivity disorder, predominantly inattentive xipq63-52-2873UgkgogfAzxqouifh-yoavoin, conduct, and disruptive behavior disorders (10 sources)Compulsive igvrgaqh29-32-3029HrwzqijgXpliqdk dysrhythmias (20 sources)Ventricular premature beats; Translations: [Other premature beats] Onset: 520286-42-5899GdxclsiIddikxd on above:noted in 04/29/2023 Cardiology Consult Note page 4. added per OP [facility] policy.Chronic kidney disease (20 sources)Chronic kidney disease stage 3; Translations: [Chronic kidney disease, stage 3 unspecified]Onset: 612875-45-8405NcwmceaUyplval on above: linked HTN with CKD per OP [facility]I policy.Conditions associated with dizziness or vertigo (16 sources)Vertigo; Translations: [Dizziness and giddiness]Onset: 02-22-2023 36-81-2568OmixhaeyKwznstsn atherosclerosis and other heart disease (20 sources)Coronary arteriosclerosis; Translations: [Coronary atherosclerosis of unspecified type of vessel, [place]ock or graft]Onset: ChronicComment on above:noted in 04/29/2023 Cardiology Consult Note page 3. added per OP [facility]I policy.Coronary atherosclerosis and other heart disease (2 sources)Coronary angioplasty status; Translations: [Coronary angioplasty status]Onset: 91-04-0447WaxoskggCfmkwsyt mellitus with complications (20 sources)Renal disorder due to type 1 diabetes mellitus; 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]Onset: 35-16-1590ObgwzdkSntplkz on above:linked DM with gastroparesis per OP CDI policy.Diabetes mellitus without complication (20 sources)Diabetes mellitus; Translations: [Diabetes mellitus without mention of complication, type II or unspecified type, not stated as uncontrolled]Onset: 60-02-2732XbazvuiVkaxntx on above:linked DM with CKD per OP [facility]I policy.linked DM with HLD per OP [facility] policy.Disorders of lipid metabolism (20 sources)Hyperlipidemia; Translations: [Other and unspecified hyperlipidemia] Onset: 55-68-4769XnzvjaoJswpokrjkc disorders (20 sources)Gastroesophageal reflux -88-9803EgpzrzjWxvlzrlmk hypertension (20 sources)Benign essential hypertension; Translations: [Benign essential hypertension]Onset: 28-51-1492CozlfamIdtjjli on above:noted in 04/29/2023 Cardiology Consult Note page 3. added per OP [facility]I policy.Hypertension with complications and secondary hypertension (5 sources)Hypertensive chronic kidney disease with stage 1 through stage 4 chronic kidney disease, or unspecified chronic kidney disease; Translations: [Hypertensive renal disease]Onset: 344697-07-2095EmswohoDjkicokieky chest pain (2 sources)Chest pain; Translations: [Chest pain, unspecified]62-64-5073Ehjvlpsj Other bone disease and musculoskeletal deformities (20 sources)Yphtgcnapr24-97-7638AnbfgtkkEzmtk diseases of kidney and ureters (1 source)Cyst of kidney, acquired; Translations: [CYST OF KIDNEY ACQUIRED] Onset: 66-98-4990ZlnwbjvjNnemx disorders of stomach and duodenum (18 sources)Gastroparesis piuqfpjl59-21-9269XrokcvkaVrerw gastrointestinal disorders (1 source)Lgocrtxrojgh87-37-1233EtprteliCzsak lower respiratory disease (2 sources)Dyspnea; Translations: [Shortness of breath]54-94-7771NolmphiuNcpdf nutritional; endocrine; and metabolic disorders (15 sources)Obesity; Translations: [Obesity, unspecified]97-67-0638VgrkmouXhuso nutritional; endocrine; and metabolic disorders (20 sources)Body mass index 30+ - obesity; Translations: [Body mass index (BMI) 32.0-32.9, adult]Onset: 316540-45-9454HpiafusFmeoi nutritional; endocrine; and metabolic disorders (2 sources)Hypercalcemia; Translations: [Hypercalcemia]12-55-7524TnddgutHzyba nutritional; endocrine; and metabolic disorders (2 sources)Hypercalcemia; Translations: [Hypercalcemia]20-80-6063DfkeiviOswzb nutritional; endocrine; and metabolic disorders (2 sources)Obesity, unspecified; Translations: [Obesity, unspecified]09-28-2023 ChronicOther nutritional; endocrine; and metabolic disorders (2 sources)Body mass index (BMI) 32.0-32.9, adult; Translations: [Body mass index (BMI) 32.0-32.9, adult]Onset: 49-07-6733QmqbewlDhfew screening for suspected conditions (not mental disorders or infectious disease) (6 sources)Encounter for screening mammogram for malignant neoplasm of breast; Translations: [Cardiovascular stress test abnormal]Onset: 50-02-8109Lomzdhti Residual codes; unclassified (2 sources)Sleep apnea; Translations: [Sleep apnea, unspecified]11-26-2019 ChronicResidual codes; unclassified (20 sources)Iqnxumog21-80-8672KyfuqubqKnjjsaly codes; unclassified (2 sources)Never smoked tobacco; Translations: [Other specified health status] Onset: 206310-12-0664TxiqzwwsMhidxsqt codes; unclassified (2 sources)Other specified health status; Translations: [Other specified health status]Onset: 07-27-4333NsgtobavSfbgiayrbgvn (3 sources)CHRN KIDNEY DISEASE STG 3 UNSP; Translations: [CHRN KIDNEY DISEASE STG 3 UNSP]Onset: 53-24-6128Bziqjqikbkya (17 sources)Long-term current use of -14-0270Bggaunj on above:Current Medication List includes Lantus. added per OP [facility]I policy.Unclassified (1 source)Qdp-mrbexk78-87hbjanw61-25-3295Vrnre infection (5 sources)Postherpetic neuralgia; Translations: [Other postherpetic nervous system involvement]Episodic Past or Other Problems Problem ClassificationProblemDateDocumented DateEpisodic/ChronicChronic kidney disease (4 sources)Chronic kidney disease; Translations: [CHRONIC KIDNEY DISEASE STAGE 3B]Onset: 16-05-4120Rdyz disorders (2 sources)Mood disordersOnset: 024574-37-7045Jpdxw injuries and conditions due to external causes (1 source)Unspecified injury of lower back, initial encounter; Translations: [Injury of back, initial encounter S39.92XA]Onset: 11-18-2020 Resolved: 77-27-9748EmeplxgoNopmrkayzidj (12 sources)Never smoked tobacco; Translations: [Never smoker]Unclassified (1 source)CHRN KIDNEY DISEASE STG 3 UNSP; Translations: [CHRN KIDNEY DISEASE STG 3 UNSP]Onset: 83-66-5773Tmzwhfbeamkw (2 sources)Onset: 075347-75-8757Nnkztfuwsjwo (1 source)Prolonged grief disorder; Translations: [Prolonged grief disorder] Onset: 09-15-2023 Results Test NameValueInterpretationReference RangeFacilityFamily Medicine Office/Clinic Noteon 03-65-6147Jlaovx Medicine Office/Clinic NoteFamily Medicine Office/Clinic Note HPI Staff Pt is presenting to establish care Establish Care: History: Any previous diagnosis: DM History of seeing any specialist: nephrology, foreign language stenographer When was your last doctors visit: 10/30/24 Last provider: Uvaldo Any recent labs: 10/30/24 Health Maintenance UTD: Colonoscopy: about 6 years ago, at the time said results were normal Mammogram: 01/03/24 - due send to [facility] Pelvic/Pap: hx of hysterectomy Patient is here for follow up on Diabetes. How often are you checking your blood sugars? sensor What are your average readings? 120s Paresthesias, Ulcerations or sores? no Lisinopril, aspirin, statin therapy? Yes Foot Exam: Eye Exam: Hgb A1C %: 6.5 % High (10/30/24 13:49:00) Hgb A1c POC: 6.2 % High (05/09/24 09:02:00) Has been noticing her blood sugar dropping really low. Sensor has been waking her up in the night saying sugar is low but if she waits it will re-read and say that it is higher again. Last Wednesday () , blood sugar dropped and she passed out, family called paramedics, they checkedher sugar and it was 31. Pt states that within the last three years this has happened several times Refills: none History of Present Illness Patient is a 74-year-old female with a PMHx of reported type 1 diabetes, HTN, CAD s/p stent (2019),CKD, and insomnia who presented to [facility] care. Patient reported that she was diagnosed with diabetes in her 50s which presented as headaches and loss of consciousness. She described her first hospitalization as an episode of DKA. She reported shehas been treated as a type I diabetic however denied previous antibody testing. Patient has been onsitagliptin, Lantus 15 units nightly, and mealtime sliding scale. She reported in the past she used between 10 and 14 units during her mealtime. She recently decreased this to 8 to 10 units due to episodes of hypoglycemia. Patient reported that she experiences hypoglycemia multiple times per week. Her continuous glucose monitor alerts her for blood glucose below 70. For the past 3 to 4 years, shehas experienced hypoglycemic episodes approximately 3 times per week and after meals with blood glucose in the 50s to 60s. Additionally, she has had multiple episodes of syncope due to hypoglycemia requiring EMS intervention and hospitalizations in the past. Patient's most recent severe episode of hypoglycemia was 1 week ago, where she reported her blood glucose was 31. Review of Systems PHQ Score Initial Depression Screen Score: 0 SCORE Pertinent review of systems is addressed in the HPI. Physical Exam Vitals & Measurements T: 36.8 ???C(Temporal Artery) HR: 88(Peripheral) RR: 18 BP: 134/78 SpO2: 98% HT: 62 in HT: 158.0 cm WT: 154.544 lb WT: 70.1 kg BMI: 28.08 General: Alert and oriented, in no acute distress HEENT: - Normocephalic, atraumatic - EOMI, conjunctiva WNL Cardiovascular: Regular rate and rhythm, no murmur/rubs/gallops, no lower extremity edema Respiratory: Lungs clear to auscultation BL without wheezing/rales/rhonchi, normal respiratory effort Abdomen: Soft, nontender, nondistended Neurologic: Grossly intact, normal gait Skin: Warm, dry, intact; no rashes Psych: Normal mood, normal affect Assessment/Plan 1. Type 2 diabetes mellitus with stage 3 chronic kidney disease (E11.22: Type 2 diabetes mellitus with diabetic chronic kidney disease) Chronic Uncontrolled d/t hypoglycemic episodes, reviewed recent labs showing hemoglobin a1c 6.5% (10/2024). Plan to decipher between type 1 diabetes, type 2 diabetes, and EDDIE by checking insulin autoantibodies, glutamic acid decarboxylase autoantibodies, islet antigen 2 autoantibodies, and zinc transporter 8 autoantibodies. Instructed patient to discontinue sitagliptin due to episodes of hypoglycemia. Advised patient to follow previously prescribed premeal time sliding scale (150 to 200 2 units, 201-250 4 units, 251 to 300 6 units, 301 to 350 8 units, 351 to 400 10 units). Recommended continuation of 15 units of Lantus nightly. Follow-up in 2 weeks. Ordered: Lab Miscellaneous-LC Lab Miscellaneous-LC 2. Long-term insulin use (Z79.4: terminal gauger (current) use of insulin) As above. Ordered: Lab Miscellaneous-LC Lab Miscellaneous-LC 3. CKD stage 3b, GFR 30-44 ml/min (N18.32: Chronic kidney disease, stage 3b) Chronic. Plan to refer to Nephrology during next visit due to eGFR decrease from 09/2023 (47) to 10/2024 (36). Will also recheck BMP and urine studies. 4. BMI 28.0-28.9,adult (Z68.28: Body mass index [BMI] 28.0-28.9, adult) Patient's current BMI is 28.08 kg/m2, while the standard range for people aged 18 years old and older is >=18.5 to <25 kg/m2. Patient's BMI and weight management strategies will continued to bemonitored at subsequent visits. Ordered: 5. Overweight (BMI 25.0-29.9) (E66.3: Overweight) Patient's BMI and weight management strategies will continued to be monitored at subsequent visits. Ordered: (more content not included)...[facility] HospitalComment on above:Result Comment: Electronically Signed By: Magdalena Michelle DO\.br\Date and Time Signed: 12/12/24 20:33 ESTAmbulatory Visit Summaryon 12-11-2024 Ambulatory Visit SummaryAmbulatory Visit Summary JADE MCNULTY :1950 Visit Date:12/11/2024 Ambulatory Visit Instructions Your Diagnosis Long-term insulin use Type 2 diabetes mellitus with stage 3 chronic kidney disease CKD stage 3b, GFR 30-44 ml/min, Chronic kidney disease, stage 3b BMI 28.0-28.9,adult Overweight (BMI 25.0-29.9) Chronic kidney disease, stage 3 unspecified Your Care Team Attending Physician - Magdalena Michelle DO Primary Care Physician - DOMINIC ORTEGA CNP This Is Your Medications List Misc Prescription (Freestyle Sam 2 Flash Glucose Monitoring 14 Day System (Sensor)) Misc Prescription (Pen Schneider) amlodipine aspirin (aspirin 81 mg Oral EC Tab) buPROPion (buPROPion 300 mg/24 hours ER Tab) buPROPion (buPROPion 300 mg/24 hours ER [...] adenoidectomy. Discharge Vitals Temperature (Temporal Artery) 36.8 ???C Heart Rate (Peripheral) 88 Respiratory Rate 18 Blood Pressure 134/78 Height 158.0 cm Height 62 in Weight 70.1 kg Weight 154.544 lb BMI 28.08 What to do next Scheduled Follow-Up Appointments Wednesday 1:00 PM EST With: Where: [address] [address]- Wednesday 1:40 PM EST With: Magdalena Michelle DO Where: [address] [address]- You Need to Schedule the Following Appointments Follow Up with Magdalena Michelle DO, FAM, PED When: In 1 week Where: Medications What How Much When Why Instructions Unchanged amlodipine 5 Milligram By Mouth Every day Unchanged aspirin (aspirin 81 mg Oral EC Tab) 1 Tablets By Mouth Every day Unchanged buPROPion (buPROPion 300 mg/ 24 hours ER Tab) 1 Tablets By Mouth Every day Unchanged buPROPion (buPROPion 300 mg/ 24 hours ER Tab) 1 Tablets By Mouth Every day Type 2 diabetes mellitus with stage 3 chronic kidney disease MDD (major depressive disorder), recurrent, in full remission Hand pain BMI 28.0-28.9,adult Nonsmoker Overweight (BMI 25.0-29.9) Unchanged insulin glargine (Lantus Solostar Pen 100 units/ mL subcutaneous solution) See instructions INJECT SUBCUTANEOUSLY 15 UNITS ONCE DAILY AT BEDTIME Unchanged insulin lispro (HumaLOG KwikPen 100 units/ mL injectable solution) See instructions INJECT SUBQ BEFORE MEALS & AT BEDTIME COVERAGE 150-200 2U, 201-250 4U, 251-300 6U. 301-350 8U. 351-400 10U WITH CARB COVERAGE MAX DAILY DOSE 40 UNITS Unchanged latanoprost ophthalmic (latanoprost Opth 0.005% Gunjan) 1 Drops INSERT 1 drop IN BOTH EYES AT BEDTIME Unchanged losartan (losartan 100 mg Tab) See instructions TAKE 1 TABLET BY MOUTH DAILY Unchanged Misc Prescription (Freestyle Sam 2 Flash Glucose Monitoring 14 Day System (Sensor)) Seeinstructions Osteopenia Long-term insulin use DM type 2 causing ESRD Freestyle Sam 2 Flash Glucose Monitoring 14 Day System (Sensor). Replace sensor every 14 days. Unchanged Misc Prescription (Pen Schneider) See instructions To be used with admin. [...] (traZODONE 50 mg Tab) See instructions TAKE ONE TABLET BY MOUTH ONCE DAILY AT BEDTIME Allergies No Known Medication Allergies Problems Ongoing - Any problem that you are currently receiving treatment for. Attention deficit disorder (ADD) Benign essential HTN Benign hypertension with chronic kidney disease, stage III BMI 28.0-28.9,adult Chronic kidney disease, stage 3b CKD stage 3a, GFR 45-59 ml/min Complex posttraumatic stress disorder Constipation Coronary artery disease involving [place]ock coronary artery without angina pectoris Diabetic gastroparesis associated with type 2 diabetes mellitus Diabetic retinopathy GERD (gastroesophageal reflux disease) Hypercholesterolemia Insomnia Long-term insulin use MDD (major depressive disorder), recurrent, in full remission Nonsmoker Obsessive-compulsive behavior Osteopenia Overweight (BMI 25.0-29.9) Prolonged grief disorder PVC's (premature ventricular contractions) Type 2 diabetes mellitus with hypercholesterolemia Type 2 diabetes mellitus with stage 3 chronic kidney dise (more content not included)...NormalScci Hospital LimaU Microalbon 10-31-2024U Microalb 0.7 mg/dLNormal0.0-1.9Scci Hospital LimaComment on above:Performed By: #### [id number] #### Ja [facility] [address], [place] [address]Ymzeeafmcc Visit Summaryon 96-02-3645Rfepwgafrw Visit Summary Ambulatory Visit Summary JADE MCNULTY :1950 Visit Date:10/30/2024 Ambulatory Visit Instructions Your Diagnosis Type 2 diabetes mellitus with stage 3 chronic kidney disease MDD (major depressive disorder), recurrent, in full remission Hand pain BMI 28.0-28.9,adult Nonsmoker Overweight (BMI 25.0-29.9) Your Care Team Attending Physician - DOMINIC ORTEGA CNP Primary Care Physician - DOMINIC ORTEGA CNP This Is Your Medications List buPROPion (buPROPion 300 mg/24 hours ER Tab) buPROPion (buPROPion 300 mg/24 hours ER Tab) Contact prescribing physician if questions or concerns Misc Prescription (Freestyle Sam 2 Flash Glucose Monitoring 14 Day System (Sensor)) Misc Prescription (Pen Schneider) amlodipine aspirin (aspirin 81 mg Oral EC [...] Tonsillectomy and adenoidectomy. Discharge Vitals Temperature (Oral) 36.8 ???C Heart Rate (Peripheral) 84 Respiratory Rate 18 Blood Pressure 126/78 Height 158 cm Height 62 in Weight 70.1 kg Weight 154.544 lb BMI 28.08 What to do next Scheduled Follow-Up Appointments Wednesday 1:00 PM EST Where: [place] [id number]- Someone Will Contact You Regarding These Appointments [facility] [place] [place] External Ambulatory Referral, Orthopaedics, 10/30/24 13:14:00 EDT, Hand pain Medications What How Much When Why Instructions Changed buPROPion (buPROPion 300 mg/ 24 hours ER Tab) 1 Tablets By Mouth Every day Pickup at [facility] Changed buPROPion (buPROPion 300 mg/ 24 hours ER Tab) 1 Tablets By Mouth Every day Type 2 diabetes mellitus with stage 3 chronic kidney disease MDD (major depressive disorder), recurrent, in full remission Hand pain BMI 28.0-28.9,adult Nonsmoker Overweight (BMI 25.0-29.9) Pickup at [facility] [address] Unchanged amlodipine 5 Milligram By Mouth Every day Contact prescribing physician if questions or concerns Unchanged aspirin (aspirin 81 mg Oral EC Tab) 1 Tablets By Mouth Every day Contact prescribing physician if questions or concerns Unchanged insulin glargine (Lantus Solostar Pen 100 units/ mL subcutaneous solution) See instructions INJECT SUBCUTANEOUSLY 15 UNITS ONCE DAILY AT BEDTIME Contact prescribing physician if questions or concerns Unchanged insulin lispro (HumaLOG KwikPen 100 units/ mL injectable solution) See instructions INJECT SUBCUTANEOUSLY BEFORE MEALS & AT BEDTIME COVERAGE 150-200 2U, 201-250 4U, 251-300 6U. 301-350 8U. 351-400 10U WITH CARB COVERAGE Contact prescribing physician if questions or concerns [...] Flash Glucose Monitoring 14 Day System (Sensor)) Seeinstructions Osteopenia Long-term insulin use DM type 2 causing ESRD Freestyle Sam 2 Flash Glucose Monitoring 14 Day System (Sensor). Replace sensor every 14 days. Contact prescribing physician if questions or concerns Unchanged Misc Prescription (Pen Schneider) See instructions To be used with admin. of insulin QID. Dx: E11.22 1ea equals 1box Contact prescribing physician if [...] (traZODONE 50 mg Tab) See instructions TAKE ONE TABLET BY MOUTH ONCE DAILY AT BEDTIME Contact prescribing physician if questions or concerns Pharmacy Information [facility]: [address] [place] [address] [address] [place], [place] [id number] [phone] [place] [address]: [address] [place], [place] [id number] [phone] Allergies No Known Medication Allergies Problems Ongoing - Any problem that you are currently receiving treatment for. Attention deficit disorder (ADD) Benign essential HTN Benign hypertension with chronic kidney disease, stage III BMI 28.0-28 (more content not included)...NormalFisher [facility] CenterCBC w/ Auto Diffon 91-22-5804Yeuefocv Absolute0.1 E9/LNormal0.0-0.2Fisher [facility] Medical CenterComment on above:Performed By: #### [id number] #### Ja [facility] [address], [place] [address]Pbiwpecoj/100 WBC (Bld)1.2 %Normal0.0-2.0S[facility] Hospital LimaComment on above:Performed By: #### [id number] #### [facility] [address] [place] [address]Lwt Absolute0.1 E9/LNormal0.0-0.5FMemorial Health [facility] Comment on above:Performed By: #### [id number] #### [facility] [address] [place] [address]Fknbkbinjgz/100 WBC (Bld)2.1 %Normal0.0-8.0[facility] Hospital LimaComment on above:Performed By: #### [id number] #### [facility] [address] [place] [address]Isfcfwagcgh distribution width (RBC) [Ratio]14.7 %High10.9-14.2 [facility] LimaComment on above:Performed By: #### [id number] #### [facility] [address] [place] [address]Wwjwiquqmw (Bld) [Volume fraction]38.6 %Vjysym66.0-46.0[facility] Hospital LimaComment on above:Performed By: #### [id number] #### [facility] [address] [place] [address]Hbgncpamvt (Bld) [Mass/Vol]12.8 g/vKOaexee37.0-16.0[facility] Hospital LimaComment on above:Performed By: #### [id number] #### [facility] [address] [place] [address]Zdell Absolute1.8 E9/LNormal1.0-4.0[facility] Comment on above:Performed By: #### [id number] #### [facility] [address] [place] [address]Wtzmkknunax/100 WBC (Bld)24.4 %Xqmgdz09.0-50.0[facility] Hospital LimaComment on above:Performed By: #### [id number] #### [facility] [address], [place] [address]OED (RBC) [Entitic mass]27.6 hvEmuefe59.0-34.0[facility] LimaComment on above:Performed By: #### [id number] #### [facility] [address] [place] [address]SKBV (RBC) [Mass/Vol]33.1 g/kOZrihjg85.4-36.0[facility] LimaComment on above:Performed By: #### [id number] #### [facility] [address] [place] [address]AWK (RBC) [Entitic vol]83.5 nQAbwslr42.0-100.0[facility] LimaComment on above:Performed By: #### [id number] #### [facility] [address] [place] [address]Qqnc Absolute0.5 E9/LNormal0.2-1.0[facility] Comment on above:Performed By: #### [id number] #### [facility] [address] [place] [address]Dwlnoitgr/100 WBC (Bld)7.1 %Normal4.0-14.0[facility] Hospital LimaComment on above:Performed By: #### [id number] #### [facility] [address] [place] [address]Nvshni Absolute4.7 E9/LNormal2.0-7.5FMemorial Health System [facility] Comment on above:Performed By: #### [id number] #### [facility] [address] [place] [address]Tqtlof Auto65.2 %Pwjccb46.0-75.0[facility] Comment on above:Performed By: #### [id number] #### Peres [facility] [address] [place] [address]Seyhydrr293.0 E9/FHzbulr086.0-500.0[facility] Comment on above:Performed By: #### [id number] #### Ja [facility] [address], [place] [address]Aocwljqm mean volume (Bld) [Entitic vol]10.5 fLNormal6.4-10.8 [facility] LimaComment on above:Performed By: #### [id number] #### Peres [facility] [address], [place] [address]JVQ6.6 E12/LNormal4.3-5.9[facility] LimaComment on above:Performed By: #### [id number] #### [facility] [address], [place] [address]LQC9.2 E9/LNormal4.0-11.0[facility] LimaComment on above:Performed By: #### [id number] #### [facility] [address], [place] [address]CCKmn 90-48-8979Uixlnsh [Mass/Vol]4.1 g/dLNormal3.3-5.0[facility] LimaComment on above:Performed By: #### [id number] #### Scci [facility] [address], [place] [address]Szyfuig/Globulin [Mass ratio]1.6 {ratio}Normal1.1-2.2FMemorial Health System Marietta Memorial HospitalComment on above:Performed By: #### [id number] #### [facility] [address], [place] [address]Oko Phos58 Int._Unit/RQffjjn69-55ZrjycnScci [facility] Comment on above:Performed By: #### [id number] #### [facility] [address], [place] [address]SXM25 Int._Unit/LNormal6-46[facility]imaComment on above:Performed By: #### [id number] #### [facility] [address], [place] [address]Kswte gap [Moles/Vol]9 mmol/LNormal6-16[facility]imaComment on above:Performed By: #### [id number] #### [facility] [address], [place] [address]GOT11 Int._Unit/LNormal5-43[facility]imaComment on above:Performed By: #### [id number] #### [facility] [address], [place] [address]Qktp Total0.6 mg/dLNormal0.0-1.1FMemorial Health System Marietta Memorial Hospital Comment on above:Performed By: #### [id number] #### [facility] [address], [place] [address]WWA/Creat Ratio19 No FdpshTjplyl01-60VjctxgScci Hospital LimaComment on above:Performed By: #### [id number] #### [facility] [address], [place] [address]Inzaydr [Mass/Vol]10.1 mg/dLNormal8.9-11.1FMemorial Health System Marietta Memorial HospitalComment on above:Performed By: #### [id number] #### [facility] [address], [place] [address]Brielcvy [Moles/Vol]104 mmol/GZnbukd276-415VfufvdScci Hospital LimaComment on above:Performed By: #### [id number] #### [facility] [address], [place] [address]NF5 [Moles/Vol]30 mmol/MQjikjm03-55GsyyuiScci Hospital [facility] Comment on above:Performed By: #### [id number] #### [facility] [address], [place] [address]Uyacekgdap [Mass/Vol]1.5 mg/dLHigh0.5-1.3FMemorial Health System Marietta Memorial HospitalComment on above:Performed By: #### [id number] #### [facility] [address], [place] [address]Yfyforal (S) [Mass/Vol]2.6 g/dLNormal1.4-4.0[facility]Comment on above:Performed By: #### [id number] #### [facility] [address], [place] [address]Keylnzt [Mass/Vol]124 mg/mKCkvryo15-690EgjkjmScci Hospital LimaComment on above:Performed By: #### [id number] #### [facility] [address], [place] [address]Mtpcptjhq [Moles/Vol]4.7 mmol/LNormal3.5-5.3FMemorial Health System Marietta Memorial HospitalComment on above:Performed By: #### [id number] #### [facility] [address], [place] [address]Bwinhoq [Mass/Vol]6.7 g/dLNormal6.0-7.8[facility]imaComment on above:Performed By: #### [id number] #### [facility] [address], [place] [address]Dgvatw [Moles/Vol]138 mmol/PIichnb327-436WpcsspScci Hospital LimaComment on above:Performed By: #### [id number] #### [facility] [address], [place] [address]Smtf nitrogen [Mass/Vol]29 mg/dLHigh5-21[facility]imaComment on above:Performed By: #### [id number] #### [facility] [address], [place] [address] Medicine Office/Clinic Noteon [phone] Medicine Office/Clinic NoteFacollis p. [facility] Medicine Office/Clinic Note Chief Complaint 6m follow up The patient presents for a follow-up on diabetes management and reports hand pain. [facility] Staff Former Dr Richey pt. Presenting today for diabetic follow up. Patient is here for follow up on Diabetes. How often are you checking your blood sugars? _ has CGM What are your average readings? _120s Paresthesias, Ulcerations or sores? no Lisinopril, aspirin, statin therapy? Yes Foot Exam: DUE Eye Exam: 09/01/24 Last A1c: Hgb A1C %: 6.7 % High (12/31/23 13:17:00) Hgb A1c POC: 6.2 % High (05/09/24 09:02:00) Follow up for Mental Status: Medication adherence- Yes, takes medication as prescribed Suicidal thoughts-Not at this time Most recent MARANDA: 4 Most recent PHQ: 7 eGFR: 47 mL/min/1.73 m2 Low (09/27/23 14:03:00) Creatinine: 1.2 mg/dL (09/27/23 14:03:00) Does have follow up in December with broadcast producer History of Present Illness 74-year-old female presenting with a six-month follow-up for diabetes management. The patient has a history of type 2 diabetes mellitus with stage 3 chronic kidney disease and is due for lab work to check her A1c levels and kidney function. Her last HgbA1C was 6.7% and she is is due to have this checked at this visit. She reports she does have an appointment with her broadcast producer in December. The patient reports a history of major depressive disorder, recurrent, in full remission, and has not been taking bupropion as prescribed due to a lapse in refilling the prescription. She experiencesgrief, particularly around the holidays, which may exacerbate her depressive symptoms. Her PHQ-9 and the MARANDA-7 screens were completed today in the office. The patient reports hand pain, particularly in the right hand, with a burning sensation and difficulty laying it flat, suspected to involve the tendons, and a referral to a hand specialist is planned. Review of Systems PHQ Score Initial Depression Screen Score: 0 SCORE - Neurological: Reports burning sensation in right hand - Musculoskeletal: Reports difficulty laying right hand flat - Psychiatric: Reports intermittent depressive symptoms, particularly around holidays Physical Exam Vitals & Measurements T: 36.8 ???C(Oral) HR: 84(Peripheral) RR: 18 BP: 126/78 SpO2: 98% HT: 62 in HT: 158 cm WT: 154.544 lb WT: 70.1 kg BMI: 28.08 General: alert, no acute distress Cardiovascular: regular rate and rhythm, normal peripheral perfusion Respiratory: Lungs CTA, respirations non labored Extremities: mild deformity, no trauma; ring finger of both hands show a slight contracture when turning the hand over Foot: normal foot exam; no lesions, & normal sensation Neurological: oriented x 4, LOC appropriate for age Diabetic Foot Exam Decreased Monofilament Sensation Foot: Left - Normal, Right - Normal Bunions/Foot Deformity: Left - Normal, Right - Normal Abnormal Pulse Foot: Left - Normal, Right - Normal Skin Lesions Foot: Left - Normal, Right - Normal Vibratory Sensation Foot: Left - Normal, Right - Normal Foot Exam Result: Normal foot exam Assessment/Plan 1. Type 2 diabetes mellitus with stage 3 chronic kidney disease (E11.22: Type 2 diabetes mellitus with diabetic chronic kidney disease) - Plan to conduct lab work to check A1c levels and kidney function. - Continue lantus, Humalog, and januvia- no refills at this appointment - F/U in 6 months Ordered: buPROPion, 300 mg = 1 tab(s), Oral, Daily, # 14 tab(s), Refills(s) 0, Pharmacy: [facility], 158, cm, 10/30/24 12:39:00 EDT, Height/Length Dosing, 70.1, kg, 10/30/24 12:39:00 EDT, Weight Dosing CBC w/ Auto Diff Comprehensive Metabolic Panel HgbA1c Microalbumin Level Urine 2. MDD (major depressive disorder), recurrent, in full remission (F33.42: Major depressive disorder, recurrent, in full remission) - Completed and reviewed the PHQ-9 score and the MARANDA- 7 scores of 7 and 4 today respectively. - Refill bupropion prescription and discuss medication adherence at next visit. - f/u in 6 months Ordered: buPROPion, 300 mg = 1 tab(s), Oral, Daily, # 14 tab(s), Refills(s) 0, Pharmacy: [facility], 158, cm, 10/30/24 12:39:00 EDT, Height/Length Dosing, 70.1, kg, 10/30/24 12:39:00 EDT, Weight Dosing 3. Hand pain (M79.643: Pain in unspecified hand) - Will refer to hand specialist Ordered: buPROPion, 300 mg = 1 tab(s), Oral, Daily, # 14 tab(s), Refills(s) 0, Pharmacy: [facility], 158, cm, 10/30/24 12:39:00 EDT, Height/Length Dosing, 70.1, kg, 10/30/24 12:39:00 EDT, Weight Dosing [facility] [place] [place] External Ambulatory Referral 4. BMI 28.0-28.9,adult (Z68.28: Body mass index [BMI] 28.0-28.9, adult) BMI 28.08 Ordered: buPROPion, 300 mg = 1 tab(s), Oral, Daily, # 14 tab(s), Refills(s) 0, Pharmacy: [facility], 158, cm, 10/30/24 12:39:00 EDT, Height/Length Dosing, 70.1, kg, 10/30/24 12:39:00 EDT, Weight Dosing 5. Nonsmoker (Z78.9: Other specified health status) Encouraged (more content not included)...NormalS[facility] Comment on above:Result Comment: Electronically Signed By: DOMINIC ORTEGA CNP\.br\Date and Time Signed: 10/30/24 13:30 HERZlyB2gsv [id number] (Bld) [Mass fraction]6.5 %High<=5.9[facility]imaComment on above: Performed By: #### [id number] #### [facility] [address], [place] [address]Nwd-Nvrfd Planningon [id number]-Visit PlanningPre-Visit Planning From: Sary LANCASTER, Keira To: DOMINIC ORTEGA CNP; Sent: 10/27/2024 08:36:01 EDT Subject: Pre-Visit Planning Due Date/Time: 10/27/2024 08:35:00 EDT Caller Name: OLIVA MCNULTY; Caller Number: , M Phillip Campbell, *Based on your response below, can you please update the chronic problem list and address during this visit if appropriate?* During a pre-visit planning chart review, I noted the following documentation in the medical record: Problem list- Complex posttraumatic stress disorder, Insomnia, Prolonged grief disorder 01/24/2024 interdisciplinary note from psychiatric social worker-Consult for positive depression screen received. Per chart notes, patient is current with counseling for these concerns. SW will remain available. 06/29/2023 office note-11. Adjustment disorder with disturbance of emotion (F43.29: Adjustment disorder with other symptoms) - Improving per patient - Continue to see Denia. 12. Insomnia (G47.00: Insomnia, unspecified) - Doing well with the trazodone - Wants a refill - Only uses half. 07/20/2023 office note-Psychiatric: no sleeping problems, no irritability, no mood swings/depression. 09/27/2023 office note-4. Insomnia (G47.00: Insomnia, unspecified) - Controlled on Trazodone - Refill meds as needed - NO side affects 5. Adjustment disorder with disturbance of emotion (F43.29: Adjustment disorder with other symptoms) - Doing ok. - Seeing counseling - Will try lexapro at this time. - If no improvement, follow up in 1 month. 12/23/2023 office note-Patient reports signs or symptoms of depression at this time. 8 minutes spent with screening and documentation. PHQ2 screening score 4. Patient drinks alcohol 4 or more times weekly 1-2 drinks, denies concerns. 8 minutes spent with screening and documentation. Audit score . Follow up scheduled with PCP, AWV has been scheduled, Abnormal findings with positive depression screening. See #14. Medicare provides yearly screening for alcohol and depression concerns. This is completed during our Medicare wellness visit for those who do not have a current diagnosis of depression or concerns with alcohol use. I spent a total of 17 minutes on this date of service which included preparing to see the patient, face to face patient care, completing clinical documentation, obtaining and/or reviewing separately obtained history, counseling and educating the patient with handouts. Explanations were provided with reviewing questionnaires. AUDIT risk assessment screening completed, risk score 0 with patient denying concerns with use. Completed PHQ-2 risk assessment for depression with risk score 4, PHQ9 13, positive findings. Patient declines suicidal ideations and does see for depression.Patient has been reminded to notify the provider if there would be a change or concerns with symptoms with fear, unable to sleep, worrying too much or feeling down and/or sad with lost of interest with daily activities. Will continue to monitor with screening yearly during Medicare wellness visits. 15. 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 Follows up with PCP with medication management and symptom control. Patient follows Denia at [facility]. PHQ-9 risk assessmentcompleted with positive findings. Total risk score is 13. Patient denies any suicidal ideations at this time. Reviewed additional signs/symptoms to monitor for and report to provider. Flyer from the [employer] on Depression provided to patient. 01/17/2024 office note-Chief Complaint Feeling down and difficulty maintaining routine [...] are exacerbated by restrictions on nighttime driving. PHQ Score Initial Depression Screen Score: 3 SCORE Detailed Depression Screen Score: 10 Total Depression Screen Score: 13 - Psychiatric: Reports anxiety and depressive symptoms, denies current suicidal thoughts. (more content not included)...NormalScci Hospital [facility]imaU Microalbon 10-30-2024U Microalb<0.1Xrjzja0.0-1.9[facility] Comment on above:Performed By: #### [id number] #### [facility] [address], [place] [address]sFECdd 29-24-1804bKFT97 mL/min/1.73 m2Low>=59S[facility]imaComment on above:Performed By: #### [id number] #### [facility] [address], [place] [address]Fdbfmhvtfz Visit Summaryon 56-09-9023Htwoehadvf Visit Summary Ambulatory Visit Summary OLIVA MCNULTY [...] This Is Your Medications List Misc Prescription ([employer] Sam 2 Flash Glucose Monitoring 14 Day System (Sensor)) Mis Prescription (Pen Schneider) amlodipine aspirin (aspirin 81 mg Oral EC [...] 10:00 AM EDT With: Denia Ding Where: [facility] Wednesday 9:00 AM EDT With: Denia Ding Where: [facility] Wednesday 9:00 AM EDT With: Denia Ding Where: [facility] Wednesday 9:00 AM EDT With: Denia Ding Where: [facility] 2024 8:20 AM EDT With: Dewayne Richey MD Where: [address] [address]- Wednesday 1:00 PM EST With: Where: [address] [address]- Medications What How Much When Why Instructions [...] Flash Glucose Monitoring 14 Day System (Sensor)) Seeinstructions Osteopenia Long-term insulin use DM type 2 causing ESRD Freestyle Sam 2 Flash Glucose Monitoring 14 Day System (Sensor). Replace sensor every 14 days. Unchanged Misc Prescription (Pen Schneider) See instructions To be used with admin. [...] instructions TAKE ONE-HALF TABLET BY MOUTH ONCE DAILYAT BEDTIME Allergies No Known Medication Allergies Problems Ongoing - Any problem that you are currently receiving treatment for. 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 Medicine Office/Clinic Note on [id number] Medicine Office/Clinic NoteFami Medicine Office/Clinic Note Chief Complaint Follow up [...] Stage 3 and Type 2 Diabetes Mellitus withDiabetic Chronic Kidney Disease are primary long-term health [...] management and overall well-being. She engages in supportivesocial forums such as Shankar meetings, which aid [...] level of consciousness appropriate for age, CN II- XII intact, motor strength equal & normal bilaterally, [...] to prevent further complications. Ordered: A1c POC 95033 5. Complex posttraumatic stress disorder (F43.10: Post-traumatic stress disorder, unspecified) Continue Wellbutrin. Discussed continuing counseling. Patient has improved significantly. Will refill meds today so we can see her back in 6 months. 6. Attention deficit disorder (ADD) (F98.8: Other specified behavioral and emotional disorders withonset usually occurring in childhood and adolescence) Attention [...] understanding of the (more content not included)... [facility] HospitalComment on above:Result Comment: Electronically Signed By: Dewayne Richey MD\.br\Date and Time Signed: 05/09/24 09:20 EDT Ambulatory Visit Summaryon 29-53-7239Bpcmtyxcxy Visit SummaryAmbulatory Visit Summary OLIVA MCNULTY :1950 Visit Date:03/28/2024 [...] 14 Day System (Sensor)) Misc Prescription (Pen Schneider) amlodipine aspirin (aspirin 81 mg Oral EC [...] 10:00 AM EST With: Denia Ding Where: [facility] Wednesday 9:00 AM EDT With: Denia Ding Where: [facility] Wednesday 10:00 AM EDT With: Denia Ding Where: [facility] Wednesday 9:00 AM EDT With: Denia Ding Where: [facility] Wednesday 8:15 AM EDT With: Dewayne Richey MD Where: [address] [address]- Wednesday 1:00 PM EST With: Where: [address] [address]- Medications What How Much When Why Instructions [...] Flash Glucose Monitoring 14 Day System (Sensor)) Seeinstructions Osteopenia Long-term insulin use DM type 2 causing ESRD Freestyle Sam 2 Flash Glucose Monitoring 14 Day System (Sensor). Replace sensor every 14 days. Unchanged Misc Prescription (Pen Schneider) See instructions To be used with admin. [...] instructions TAKE ONE-HALF TABLET BY MOUTH ONCE DAILYAT BEDTIME Allergies No Known Medication Allergies Problems Ongoing - Any problem that you are currently receiving treatment for. 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 She is considering vol unteer options to mitigate her sense of being a burden, however, she faces challenges such as poor vision. Past interventions include social gatherings like attending [employer] meetings for social interaction, and although beneficial, she missed a session due to travel. - Discussion on volunteering activities to enhance mental well-being and social interaction. - Encouragement to continue participation in community groups such as quaker and Al-Anon. - Evaluation of emotional health [...] level of consciousness appropriate for age, CN II- XII intact, motor strength equal & normal bilaterally, [...] nephrotoxic agents. 3. Long-term insulin use (Z79.4: longterm (current) use of insulin) Assured adherence to insulin therapy and addressed possible need for dosing adjustments consideringbehavioral and activity changes. 4. Type 2 diabetes [...] q24hr, # 90 tab(s), Refills(s) 1, Pharmacy: [facility], 158, cm, 03/28/24 15:03:00 EST, Height/Length [...] and being a burden (more content not included)...[facility] HospitalComment on above: Result Comment: Electronically Signed By: Mat JIMENEZ, Dewayne Chaparro\Date and Time Signed: 03/28/24 15:38 ESTEstimated glomerular filtration rate (GFR) non- Americanon 57-38-5098MMN/1.73 sq M.predicted among non-blacks MDRD (S/P/Bld) [Vol rate/Area]Estimated glomerular filtration rate (GFR) non- Low>=60 mL/min/1.73m 2FBluffton HospitalGlobulin Calc (S) [Mass/Vol]on 97-58-0638Jdvfazqs (S) [Mass/Vol]Serum globulin measurement by calculation (mass/volume)[facility] - Chemistry and Chemistry - challengeon 69-47-1583Vsezwem [Mass/Vol]3.6 g/dL3.4-5.0 [facility] HospitalALP [Catalytic activity/Vol]75 U/L46-116 [facility] HospitalALT [Catalytic activity/Vol]32 U/L14-59 [facility] HospitalAST [Catalytic activity/Vol]24 U/L15-37 [facility] HospitalBilirubin [Mass/Vol]0.3 mg/dL0.2-1.0[facility] HospitalCalcium [Mass/Vol]9.6 mg/dL8.5-10.1FBluffton HospitalChloride [Moles/Vol]103 mmol/W12-178NqxvcgycsBucyrus Community HospitalCO2 [Moles/Vol]29.0 mmol/L21.0-32.0[facility] Creatinine [Mass/Vol]1.23 mg/dLHigh0.55-1.02[facility] GFR/1.73 sq M.predicted MDRD (S/P/Bld) [Vol rate/Area]52 mL/min/{1.73_m2}Low>=60 mL/min/1.[address]m [address] [place], [place] [address]Glucose [Mass/Vol]43 mg/dL Critically pju82-511FiqvlxpyaBucyrus Community HospitalComment on above:RESULTS CALLED TO CHILO NELSON LPN @BY Agatha Lyons [id number] [Moles/Vol]3.7 mmol/L3.5-5.1FBluffton HospitalProtein [Mass/Vol]7.0 g/dL6.4-8.2 [facility] Centerodium [Moles/Vol]139 mmol/I054-674LllmjxcssBucyrus Community HospitalUrate [Mass/Vol]3.3 mg/dL2.6-6.0[facility] HospitalUrea nitrogen [Mass/Vol]17.0 mg/dL7.0-18.0[facility] Community HospitalUrea nitrogen/Creatinine [Mass ratio]13.8 mg/mgBucyrus Community HospitalNo Panel Informationon 81-50-0491Wfyiighxyc Level2.6 mg/dL2.6-4.7 [facility] Centererum or plasma albumin/globulin mass ratioon 05-76-3657Rehaqsz/Globulin [Mass ratio]Serum or plasma albumin/globulin mass ratioFulton County Health Centererum or plasma anion gap determinationon 48-73-8742Witte gap [Moles/Vol]Serum or plasma anion gap determinationBucyrus Community HospitalAmbulatory Visit Summaryon 62-90-0692Nmnuyakbzr Visit SummaryAmbulatory Visit Summary OLIVA MCNULTY :1950 Visit Date:01/17/2024 Ambulatory Visit Instructions Your Diagnosis BMI 32.0-32.9,adult Exogenous obesity Nonsmoker Attention deficit disorder (ADD) Obsessive-compulsive behavior DM type 2 causing CKD stage 3 Insomnia Chronic kidney disease, stage 3 unspecified Your Care Team Attending Physician - Dewayne Richey MD Primary Care Physician - Dewayne Richey MD This Is Your Medications List [facility] Prescription (Freestyle Sam 2 Flash Glucose Monitoring 14 Day System (Sensor)) [facility] Prescription (Pen Schneider) amlodipine aspirin (aspirin 81 mg Oral EC [...] 10:00 AM EST With: Denia Ding Where: [facility] Wednesday 10:00 AM EST With: Dewayne Richey MD Where: [address] [address]- Wednesday 1:00 PM EST With: Where: [address] [address]- Medications What How Much When Why Instructions [...] Flash Glucose Monitoring 14 Day System (Sensor)) Seeinstructions Osteopenia Long-term insulin use DM type 2 causing ESRD Freestyle Sam 2 Flash Glucose Monitoring 14 Day System (Sensor). Replace sensor every 14 days. Unchanged Misc Prescription (Pen Schneider) See instructions To be used with admin. [...] instructions TAKE ONE-HALF TABLET BY MOUTH ONCE DAILYAT BEDTIME Allergies No Known Medication Allergies Problems Ongoing - Any problem that you are currently receiving treatment for. 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 [facility] Medicine Office/Clinic Noteon 65-36-5564[place] Medicine Office/Clinic NoteFacollis p. huntington hospital Medicine Office/Clinic Note Chief Complaint Feeling down [...] patient reports difficulty with higher blood sugar levelswhen routine is altered, like during less physical activity periods. A recent A1C test showed an increase, but levels remain at 6.7%. She is not currently smoking. - Recent A1c was 6.7% indicating controlled blood sugar levels with room for improvement through increased physical activity. - Encouraged participation in social activities and quaker as a means to improve mental health. [...] level of consciousness appropriate for age, CN II- XII intact, motor strength equal & normal bilaterally, speech normal Abdomen: Soft, Non-tender, Non-distended, + Bowel sounds Assessment/Plan 1. Depression (F32.A) Continue treatment with modifications discussed including potentially adding Wellbutrin and maintaining social engagements.Discussed adjuvant therapies. Continue counseling. Follow up in 2 months. Ordered: buPROPion, 150 mg = 1 tab(s), Oral, q24hr, # 90 tab(s), Refills(s) 0, Pharmacy: [facility], 158, cm, 01/17/24 9:38:00 EST, Height/Length Dosing, 79.9, kg, 01/17/24 9:38:00 EST, WeightDosing 2. Obesity (E66.811) Discuss continued weight management strategies and the benefits of physical activity. Ordered: buPROPion, 150 mg = 1 tab(s), Oral, q24hr, # 90 tab(s), Refills(s) 0, Pharmacy: [facility], 158, cm, 01/17/24 9:38:00 EST, Height/Length Dosing, 79.9, kg, 01/17/24 9:38:00 EST, WeightDosing 3. BMI 32.0-32.9,adult (Z68.32: Body mass index [BMI] 32.0-32.9, adult) BMI education added. Ordered: buPROPion, 150 mg = 1 tab(s), Oral, q24hr, # 90 tab(s), Refills(s) 0, Pharmacy: [facility], 158, cm, 01/17/24 9:38:00 EST, Height/Length Dosing, 79.9, kg, 01/17/24 9:38:00 EST, WeightDosing Body Mass Index (BMI) documented 3008F Current [...] q24hr, # 90 tab(s), Refills(s) 0, Pharmacy: [facility], 158, cm, 01/17/24 9:38:00 EST, Height/Length Dosing, 79.9, kg, 01/17/24 9:38:00 EST, WeightDosing Body Mass Index (BMI) documented 3008F Current tobacco non-user 1036F Depression Screening Negative 3352F Depression Screening Positive 3354F Influenza immunization administered or previously received 4274F Most recent diastolic blood pressure <80 mm Hg 3078F (more content not included)...[facility] HospitalComment on above: Result Comment: Electronically Signed By: Dewayne Richey MD\.br\Date and Time Signed: 01/17/24 10:17 ESTAmbulatory Visit Summaryon [id number] Visit SummaryAmbulatory Visit Summary OLIVA MCNULTY :1950 Visit Date:12/23/2023 [...] 14 Day System (Sensor)) Misc Prescription (Pen Schneider) amlodipine aspirin (aspirin 81 mg Oral EC [...] 10:00 AM EST With: Denia Ding Where: [facility] Wednesday 1:20 PM EST With: Where: [address] [address]- Wednesday 10:00 AM EST With: Mat JIMENEZ, Dewayne Zhao Where: [address] [id number]- Wednesday 1:00 PM EST With: Where: [address] [address]- You Need to Complete the [...] Flash Glucose Monitoring 14 Day System (Sensor)) Seeinstructions Osteopenia Long-term insulin use DM type 2 causing ESRD Freestyle Sam 2 Flash Glucose Monitoring 14 Day System (Sensor). Replace sensor every 14 days. Unchanged Misc Prescription (Pen Schneider) See instructions To be used with admin. [...] instructions TAKE ONE-HALF TABLET BY MOUTH ONCE DAILYAT BEDTIME Medications and Immunizations Administered Given Fluzone High-Dose PF Prefilled Syringe , 0.5 mL, IntraMuscular. For: Immunization due influenza virus vaccine, inactivated, (more content not included)...[facility] HospitalFac[facility] Medicine Office/Clinic Noteon [id number] Medicine Office/Clinic NoteFami Medicine Office/Clinic Note Chief Complaint Subsequent Medicare [...] Present : No actual or suspected pain Jose Luis Demi Montano - 12/23/2023 13:12 EST Hearing and Vision Screening FT FT Whisper Test Comments : no hearing deficits Vision Screen Comments : wears corrective lens. Dr. Cui yearly. Demi Amaya - 12/23/2023 13:12 EST Advance Directive FT Advance Directive : Yes Type of Advance Directive : Living will, Medical durable power of commercial litigation attorney Location of Advance Directive : Scanned [...] LPN left knee ; Last Reviewed Dt/Tm: 12/23/2023 [...] smoker (Last Updated: 12/23/2023 13:19:59 EST by Deim Amaya) Substance Abuse: Denies Substance Abuse Comments: [...] PHQ9 (Positive Screen) Trouble (more content not included)...NormalScci Hospital LimaComment on above:Result Comment: Electronically Signed By: Dewayne Richey MD\.br\Date and Time Signed: 01/03/24 15:07 EST\.br\Electronically Co-Signed By: Demi Amaya\.br\Date and Time Co-Signed: 12/23/23 16:47 EST.Interpretation:on 01-02-2024 HCV Ab IA QlCommentInvalid Interpretation [facility] HospitalComment on above:Result Comment: Not infected with HCV unless early or acute infection is suspected (which may be delayed in an immunocompromised individual), or other evidence exists to indicate HCV infection. Performed at: [facility] [address] [id number] PhD Tito ClarkPerformed By: #### [id number] #### [facility] [address] [place] [address]THD Antibody RFX to Quant PCRon 66-99-2672EGA IgG IA Ql Non-ReactiveInvalid Interpretation CodeNon ReactiveScci Hospital Lima Comment on above:Result Comment: Performed at: [facility] [address] [id number] PhD Tito Beverlyformed By: #### [id number] #### [facility] [address], [place] [address]VJBVINZFBFzqslxc By: Kendy Fontaine on 93-07-4690SeJ0o (Bld) [Mass fraction]6.7 %High<=5.9%[facility] [place] [place] DitoIczhTFXotV6okf 96-48-2567FlU0x (Bld) [Mass fraction]6.7 %High<=5.9Scci Hospital LimaComment on above: Performed By: #### [id number] #### [facility] [address], [place] [address]Vvqrzcimxf Visit Summaryon [id number] Visit Summary Ambulatory Visit Summary OLIVA MCNULTY :1950 MRN:[id number] Visit Date:09/27/2023 Ambulatory Visit Instructions Your Diagnosis [...] physician if questions or concerns Misc Prescription (Jobmetoo Sam 2 Flash Glucose Monitoring 14 Day System (Sensor)) Misc Prescription (Pen Schneider) Misc Prescription (Pen Schneider) amlodipine aspirin (aspirin 81 mg Oral EC [...] 10:00 AM EDT With: Denia Ding Where: [facility] Wednesday 10:00 AM EDT With: Denia Ding Where: [facility] 2023 1:00 PM EST With: Where: [facility] Medicine [address] [address]- Wednesday 10:00 AM EST With: Dewayne Richey MD Where: Family Medicine [address] [address]- Medications What How Much When Why Instructions New escitalopram (Lexapro 5 mg oral tablet) 1 Tablets By Mouth Every day Pickup at [facility] Unchanged amlodipine 5 Milligram By Mouth [...] Flash Glucose Monitoring 14 Day System (Sensor)) Seeinstructions Osteopenia Long-term insulin use DM type 2 causing ESRD Freestyle Sam 2 Flash Glucose Monitoring 14 Day System (Sensor). Replace sensor every 14 days. Contact prescribing physician if questions or concerns Unchanged Misc Prescription (Pen Schneider) See instructions To be used with admin. of insulin QID. Dx: E11.22 1ea equals 1box Contact prescribing physician if questions or concerns Unchanged Misc Prescription (Pen Schneider) See instructions To be used with admin. of insulin QID. Dx: E11.22 1 EA equals 1box Contact prescribing physician [...] instructions TAKE ONE-HALF TABLET BY MOUTH ONCE DAILYAT BEDTIME Contact prescribing physician if questions or concerns Pharmacy Information [facility]: [address] [place] [phone] Allergies No Known Medication Allergies Problems Ongoing - Any problem that you are currently receiving treatment for. Adjustmen (more content not included)...NormalScci Hospital LimaCBC w/ Auto Diffon 43-46-8876Evakvjjlc/100 WBC (Bld)0.9 %Normal0.0-2.0[facility] Hospital LimaComment on above:Performed By: #### [id number] #### [facility] [address] [place] [address]Papothjzf/Leukocytes Auto (Bld) [Pure # fraction]0.1 E9/LNormal 0.0-0.2FMemorial Health System Marietta Memorial HospitalComment on above:Performed By: #### [id number] #### [facility] [address] [place] [address]Yzkmdufscts (Bld) [#/Vol]0.1 E9/LNormal0.0-0.5FMemorial Health System Marietta Memorial HospitalComment on above:Performed By: #### [id number] #### [facility] [address] [place] [address]Yidzeicnnwp/100 WBC (Bld)1.2 %Normal0.0-8.0[facility] Hospital LimaComment on above:Performed By: #### [id number] #### [facility] [address], [place] [address]Dwpdergtazy distribution width (RBC) [Ratio]15.8 %High10.9-14.2 [facility] Hospital LimaComment on above:Performed By: #### [id number] #### [facility] [address] [place] [address]Dvtdzcyvxg (Bld) [Volume fraction]40.1 %Bwuzrn10.0-46.0[facility] Hospital LimaComment on above:Performed By: #### [id number] #### [facility] [address] [place] [address]Xaufgplsoh (Bld) [Mass/Vol]13.1 g/jOXksaox62.0-16.0[facility] Hospital LimaComment on above:Performed By: #### [id number] #### [facility] [address] [place] [address]Hiqsljbmhbb (Bld) [#/Vol]1.9 E9/LNormal1.0-4.0[facility] Hospital LimaComment on above:Performed By: #### [id number] #### [facility] [address] [place] [address]Jjmrctfxmox/100 WBC (Bld)24.3 %Xktszz30.0-50.0[facility] Hospital LimaComment on above:Performed By: #### [id number] #### [facility] [address] [place] [address]OED (RBC) [Entitic mass]27.4 udEdibtn94.0-34.0S[facility] Hospital LimaComment on above:Performed By: #### [id number] #### [facility] [address] [place] [address]LZVC (RBC) [Mass/Vol]32.6 g/sGQasznv73.4-36.0Scci Hospital LimaComment on above:Performed By: #### [id number] #### [facility] [address] [place] [address]ZMS (RBC) [Entitic vol]84.1 cRAcojqs16.0-100.0S[facility] Hospital LimaComment on above:Performed By: #### [id number] #### [facility] [address] [place] [address]Cntntbbsr (Bld) [#/Vol]0.6 E9/LNormal0.2-1.0S[facility] Hospital LimaComment on above:Performed By: #### [id number] #### [facility] [address] [place] [address]Ljkzyzjpiwe (Bld) [#/Vol]5.2 E9/LNormal2.0-7.5FMemorial Health System Marietta Memorial HospitalComment on above:Performed By: #### [id number] #### [facility] [address] [place] [address]Tzwqoolfhfu/100 WBC (Bld)65.6 %Yvrebl75.0-75.0[facility] Hospital LimaComment on above:Performed By: #### [id number] #### [facility] [address] [place] [address]Tpjkdkmy mean volume (Bld) [Entitic vol]11.0 fLHigh6.4-10.8 [facility] Hospital LimaComment on above:Performed By: #### [id number] #### [facility] [address] [place] [address]Kkfuoombl (Bld) [#/Vol]174.0 E9/FZapwxf681.0-500.0[facility] Hospital LimaComment on above:Performed By: #### [id number] #### [facility] [address] [place] [address]HFF (Bld) [#/Vol]4.8 E12/LNormal4.3-5.9[facility] Hospital LimaComment on above:Performed By: #### [id number] #### [facility] [address] [place] [address]WUY corrected for nucl RBC Auto (Bld) [#/Vol]8.0 E9/LNormal 4.0-11.0[facility] Hospital LimaComment on above:Performed By: #### [id number] #### [facility] [address] [place] [address]RNZPOEXEDIpqzmat By: SYSTEM SYSTEM on 85-40-9461Cutglad [Mass/Vol]4.1 g/dLNormal3.3 - 5.0 gm/dLRemisol ChemAlbumin/Globulin [Mass ratio] 1.4 {ratio}Normal1.1 - 2.2Remisol ChemALP [Catalytic activity/Vol]56 [iU]/d Bonike85 - 98 Int._Unit/LRemisol ChemALT No additional P-5'-P [Catalytic activity/Vol]20 [iU]/dNormal6 - 46 Int._Unit/LRemisol ChemAnion gap [Moles/Vol] 13 mmol/LNormal6 - 16 mEq/LRemisol ChemAST [Catalytic activity/Vol]25 [iU]/d Normal5 - 43 Int._Unit/LRemisol ChemBilirubin [Mass/Vol]0.5 mg/dLNormal0.0 - 1.1 mg/dLRemisol ChemCalcium [Mass/Vol]10.2 mg/dLNormal8.9 - 11.1 mg/dLRemisol Chem Chloride [Moles/Vol]101 mmol/ZTcisrw986 - 111 mmol/LRemisol ChemCholesterol [Mass/Vol]140 mg/oLNgxycz463 - 200 mg/dLRemisol ChemCholesterol in HDL [Mass/Vol]55 mg/dLInvalid Interpretation CodeRemisol ChemComment on above:Result Comment: '>= 60 LOW RISK' '<= 40 HIGH RISK'Cholesterol in LDL [Mass/Vol]64 mg/dLNormal<=129mg/dLRemisol ChemCholesterol in VLDL [Mass/Vol]16 mg/dLNormal7 - 40 mg/dLRemisol ChemCO2 [Moles/Vol]26 mmol/OJdjlrk43 - 31 mmol/LRemisol ChemCreatinine [Mass/Vol]1.2 mg/dLNormal0.5 - 1.3 mg/dLRemisol IaggtWLP94 mL/min/1.73 m2Low>=59mL/min/1.73 m2 Remisol ChemGlobulin (S) [Mass/Vol]2.9 g/dLNormal1.4 - 4.0 gm/dLRemisol Chem Glucose [Mass/Vol]112 mg/tTXhpdiu56 - 199 mg/dLRemisol ChemPotassium [Moles/Vol] 4.6 mmol/LNormal3.5 - 5.3 mmol/LRemisol ChemProtein [Mass/Vol]7.0 g/dLNormal6.0 - 7.8 gm/dLRemisol ChemSodium [Moles/Vol]135 mmol/HKbhxzx217 - 145 mmol/LRemisol ChemTriglyceride [Mass/Vol]78 mg/dLNormal<=149mg/dLRemisol ChemUrea nitrogen [Mass/Vol]19 mg/dLNormal5 - 21 mg/dLRemisol ChemUrea nitrogen/Creatinine [Mass ratio]16 mg/zvPujwmc06 - 20Remisol ChemAlbumin DL <= 20 mg/L (U) [Mass/Vol]6.5 mg/dLHigh0.0 - 1.9 mg/dLRemisol ChemProtein/Creatinine (U) [Ratio]16.30 mg/gm Cr Normal0.00 - 200.00 mg/gm CrRemisol ChemU Dcwqnhsexx716.3 mg/dLInvalid Interpretation CodeRemisol ChemUr Total Lkqctfs80.1 mg/dLInvalid Interpretation CodeRemisol ChemCHEMISTRYOrdered By: Lazaro Naranjo on 76-79-5144TaH4x (Bld) [Mass fraction]6.0 %High<=5.9%[facility] [place] [place] ChemAutoSSCMPon 48-73-2263Xrwtlyk [Mass/Vol] 4.1 g/dLNormal3.3-5.0S[facility] Hospital LimaComment on above:Performed By: #### [id number] #### [facility] [address], [place] [address]Tckpnie/Globulin (S) [Mass conc ratio]1.5Nrnhfd1.1-2.2[facility] Medical CenterComment on above:Performed By: #### [id number] #### [facility] [address], [place] [address]BAG [Catalytic activity/Vol]56 Int._Unit/INvczfj46-90AzlqbeScci Hospital LimaComment on above:Performed By: #### [id number] #### [facility] [address], [place] [address]UWR No additional P-5'-P [Catalytic activity/Vol]20 Int._Unit/L Normal6-46S[facility] Hospital LimaComment on above:Performed By: #### [id number] #### [facility] [address], [place] [address]Jfkyq gap [Moles/Vol]13 mmol/LNormal6-16[facility] Hospital LimaComment on above:Performed By: #### [id number] #### [facility] [address], [place] [address]XFF [Catalytic activity/Vol]25 Int._Unit/LNormal5-43[facility] Hospital LimaComment on above:Performed By: #### [id number] #### [facility] [address], [place] [address]Yhzkbrclw [Mass/Vol]0.5 mg/dLNormal0.0-1.1FMemorial Health System Marietta Memorial HospitalComment on above:Performed By: #### [id number] #### [facility] [address], [place] [address]Ftvoukn [Mass/Vol]10.2 mg/dLNormal8.9-11.1FMemorial Health System Marietta Memorial HospitalComment on above:Performed By: #### [id number] #### [facility] [address], [place] [address]Prrogtrp [Moles/Vol]101 mmol/OBepbww833-407WrbcvfScci Hospital LimaComment on above:Performed By: #### [id number] #### [facility] [address], [place] [address]TI2 [Moles/Vol]26 mmol/ZGnsmrv84-83OqebzwScci Hospital Lima Comment on above:Performed By: #### [id number] #### [facility] [address], [place] [address]Jagqqaasko [Mass/Vol]1.2 mg/dLNormal0.5-1.3FMemorial Health System Marietta Memorial HospitalComment on above:Performed By: #### [id number] #### [facility] [address], [place] [address]Tikpisyp (S) [Mass/Vol]2.9 g/dLNormal1.4-4.0[facility] Hospital LimaComment on above:Performed By: #### [id number] #### [facility] [address], [place] [address]Qmfwtsg [Mass/Vol]112 mg/zQSkonqk39-757GlhufkScci Hospital LimaComment on above:Performed By: #### [id number] #### [facility] [address], [place] [address]Wvsllhskr [Moles/Vol]4.6 mmol/LNormal3.5-5.3FMemorial Health System Marietta Memorial HospitalComment on above:Performed By: #### [id number] #### [facility] [address], [place] [address]Gcfbttg [Mass/Vol]7.0 g/dLNormal6.0-7.8[facility] Hospital LimaComment on above:Performed By: #### [id number] #### [facility] [address], [place] [address]Omrltt [Moles/Vol]135 mmol/XBebdmk084-741FihwaoScci Hospital LimaComment on above:Performed By: #### [id number] #### [facility] [address], [place] [address]Teic nitrogen [Mass/Vol]19 mg/dLNormal5-21[facility] Hospital LimaComment on above:Performed By: #### [id number] #### [facility] [address], [place] [address]Ezyx nitrogen/Creatinine [Mass ratio]16 No UepkbSqczrp59-01 [facility] LimaComment on above:Performed By: #### [id number] #### [facility] [address], [place] [address]Zzrxnp Medicine Office/Clinic Noteon 94-71-2706Ougmoj Medicine Office/Clinic NoteFacollis p. [facility] Medicine Office/Clinic Note HPI Staff Baptiste is a 73 year old female presenting [...] falls in last (more content not included)... NormalScci Hospital LimaComment on above:Result Comment: Electronically Signed By: Mat JIMENEZ, Dewayne Chaparro\Date and Time Signed: 09/27/23 13:19 EDT HEMATOLOGYOrdered By: SYSTEM SYSTEM on 70-23-2250Mdqnmvucn/100 WBC (Bld)0.9 % Normal0.0 - 2.0 %Remisol HemeBasophils/Leukocytes Auto (Bld) [Pure # fraction] 0.1 E9/LNormal0.0 - 0.2 E9/LRemisol HemeEosinophils (Bld) [#/Vol]0.1 E9/LNormal 0.0 - 0.5 E9/LRemisol HemeEosinophils/100 WBC (Bld)1.2 %Normal0.0 - 8.0 %Remisol HemeErythrocyte distribution width (RBC) [Ratio]15.8 %High10.9 - 14.2 %Remisol HemeHematocrit (Bld) [Volume fraction]40.1 %Digpgq31.0 - 46.0 %Remisol Heme Hemoglobin (Bld) [Mass/Vol]13.1 g/gBRbogcm07.0 - 16.0 gm/dLRemisol Heme Lymphocytes (Bld) [#/Vol]1.9 E9/LNormal1.0 - 4.0 E9/LRemisol HemeLymphocytes/100 WBC (Bld)24.3 %Ejglgj53.0 - 50.0 %Remisol HemeMCH (RBC) [Entitic mass]27.4 pg Pmeyio19.0 - 34.0 pgRemisol HemeMCHC (RBC) [Mass/Vol]32.6 g/zFVgsosh57.4 - 36.0 gm/dLRemisol HemeMCV (RBC) [Entitic vol]84.1 eQTlapfo27.0 - 100.0 fLRemisol Heme Monocytes (Bld) [#/Vol]0.6 E9/LNormal0.2 - 1.0 E9/LRemisol HemeMonocytes/100 WBC (Bld)8.0 %Normal4.0 - 14.0 %Remisol HemeNeutrophils (Bld) [#/Vol]5.2 E9/LNormal 2.0 - 7.5 E9/LRemisol HemeNeutrophils/100 WBC (Bld)65.6 %Lkzxvv50.0 - 75.0 % Remisol HemePlatelet mean volume (Bld) [Entitic vol]11.0 fLHigh6.4 - 10.8 fL Remisol HemePlatelets (Bld) [#/Vol]174.0 E9/DQihhxc782.0 - 500.0 E9/LRemisol HemeRBC (Bld) [#/Vol]4.8 E12/LNormal4.3 - 5.9 E12/LRemisol HemeWBC corrected for nucl RBC Auto (Bld) [#/Vol]8.0 E9/LNormal4.0 - 11.0 E9/LRemisol TeuzYoxK5ejg 50-18-3363WqW5p (Bld) [Mass fraction]6.0 %High<=5.9[facility] Comment on above:Performed By: #### [id number] #### [facility] [address], [place] [address]Scouq Panelon 93-80-4385Cisynhwlado [Mass/Vol]140 mg/dLNormal 120-200[facility] Hospital LimaComment on above:Performed By: #### [id number] #### [facility] [address], [place] [address]Sqfuocxthaj in HDL [Mass/Vol]55 mg/dLInvalid Interpretation CodeScci Hospital LimaComment on above:Result Comment: '>= 60 LOW RISK' '<= 40 HIGH RISK'Performed By: #### [id number] #### [facility] [address], [place] [address]Tyjzazrvmoy in LDL [Mass/Vol]64 mg/dLNormal<=129[facility] Hospital LimaComment on above:Performed By: #### [id number] #### [facility] [address], [place] [address]Ccontnjfvex in VLDL [Mass/Vol]16 mg/dLNormal7-40[facility] Hospital LimaComment on above:Performed By: #### [id number] #### [facility] [address], [place] [address]Vuypkemqqcrt [Mass/Vol]78 mg/dLNormal<=149[facility] Hospital LimaComment on above:Performed By: #### [id number] #### [facility] [address], [place] [address]Z Microalbon 50-77-6012Bejsgwn DL <= 20 mg/L (U) [Mass/Vol]6.5 mg/dLHigh0.0-1.9[facility] Hospital LimaComment on above:Performed By: #### [id number] #### [facility] [address], [place] [address]D Protein/Creat Ratioon 06-84-8588Zqfoykv/Creatinine (U) [Ratio]16.30 mg/gm CrNormal.00-200.00S[facility] Hospital LimaComment on above:Performed By: #### [id number] #### [facility] [address], [place] [address]M Eesmtukxhd125.3 mg/dLInvalid Interpretation [facility] HospitalComment on above:Performed By: #### [id number] #### [facility] [address], [place] [address]Pa Total Honpmzf10.1 mg/dLInvalid Interpretation [facility] HospitalComment on above:Performed By: #### [id number] #### [facility] [address], [place] [address]pKEVry 86-30-5011uKAJ39 mL/min/1.73 m2Low>=59S[facility] Hospital LimaComment on above:Order Comment: Order added by Discern Expert. Performed By: #### [id number] #### [facility] [address], [place] [address]Ojsczqdjrjf distribution width Auto (RBC) [Ratio]on 09-22-2023 Erythrocyte distribution width (RBC) [Ratio]15.5 %High11.0-15.0[facility] HospitalEstimated glomerular filtration rate (GFR) non- Americanon 10-87-6451KLE/1.73 sq M.predicted among non-blacks MDRD (S/P/Bld) [Vol rate/Area]51 mL/min/{1.73_m2}Low>=60[facility] Globulin Calc (S) [Mass/Vol]on 48-20-6160Olhfnjdt (S) [Mass/Vol]3.3 g/dL [facility] HospitalHematocrit Auto (Bld) [Volume fraction]on 79-68-1243Bughdpvvep (Bld) [Volume fraction]40.3 %36.0-48.0[facility] HospitalHemoglobin [Mass/volume] in Bloodon 64-34-0608Uqcogkxwus (Bld) [Mass/Vol]12.9 g/dL12.0-16.0[facility] HospitalLaboratory - Chemistry and Chemistry - challengeon 69-07-5592Verdigq [Mass/Vol]3.8 g/dL 3.4-5.0[facility] HospitalALP [Catalytic activity/Vol]63 U/L46-116 [facility] HospitalALT [Catalytic activity/Vol]23 U/L14-59 [facility] HospitalAST [Catalytic activity/Vol]16 U/L15-37 [facility] HospitalBilirubin [Mass/Vol]0.6 mg/dL0.2-1.0[facility] HospitalCalcium [Mass/Vol]10.3 mg/dLHigh8.5-10.1FBluffton HospitalChloride [Moles/Vol]102 mmol/J59-805PzswlgdeqBucyrus Community HospitalCO2 [Moles/Vol]30.1 mmol/L21.0-32.0[facility] HospitalCreatinine [Mass/Vol]1.05 mg/dLHigh0.55-1.02[facility] HospitalGFR/1.73 sq M.predicted MDRD (S/P/Bld) [Vol rate/Area]mL/min/{1.73_m2}>=60 [facility] HospitalGlucose [Mass/Vol]60 mg/bHBqb08-353ScjgbyhczBucyrus Community HospitalMagnesium [Mass/Vol]1.8 mg/dL1.8-2.4FBluffton HospitalPotassium [Moles/Vol]4.2 mmol/L3.5-5.1FBluffton HospitalProtein [Mass/Vol]7.1 g/dL6.4-8.2FWVUMedicine Harrison Community Hospitalodium [Moles/Vol]137 mmol/I327-705OqqnbbxywBucyrus Community HospitalUrate [Mass/Vol]3.2 mg/dL2.6-6.0[facility] HospitalUrea nitrogen [Mass/Vol]21.0 mg/dL High7.0-18.0[facility] HospitalUrea nitrogen/Creatinine [Mass ratio]20.0 mg/mgBucyrus Community HospitalLaboratory - Urinalysison 62-15-7891Kwokbpr (U) [Mass/Vol]12.7 mg/dLHigh<=11.9[facility] HospitalLeukocytes [#/volume] corrected for nucleated erythrocytes in Blood by Automated counon 71-57-3146AQB corrected for nucl RBC Auto (Bld) [#/Vol]8.5 10 3/uL4.0-11.0[facility] CampusH Auto (RBC) [Entitic mass]on 06-87-5577IWJ (RBC) [Entitic mass]27.0 pg26.7-34.0[facility] HospitalMCHC Auto (RBC) [Mass/Vol]on 78-36-3675DAKQ (RBC) [Mass/Vol]32.0 g/dL 29.9-35.2FBluffton HospitalMCV Auto (RBC) [Entitic vol]on 74-06-9293ZCO (RBC) [Entitic vol]84.3 fL81.0-99.0[facility] HospitalNo Panel Informationon 62-96-564382559848-Xfzlcot Vitamin D Total56.6 ng/mL [facility] HospitalComment on above:<20 ng/mL Vit D xekfhazom26- <30 ng/mL Vit D tbdwsagmwmnw28-176 ng/mL Vit D sufficient>100 ng/mL Potential ToxicityParathyroid Hormone (Intact)19 pg/kU72-65BvbmfcalyBucyrus Community HospitalComment on above:Performed at: - [facility] [id number] [place], [place] [id number] Director: Eduardo Francis PhD, Phone: [phone] Phosphorus Level3.5 mg/dL2.6-4.7FBluffton HospitalUrine Random Rjpfxtmwig68.39 mg/dL20.00-300.00[facility] HospitalPlatelet mean volume Auto (Bld) [Entitic vol]on 37-51-3514Sloqebrb mean volume (Bld) [Entitic vol]12.0 fL9.5-13.5FBluffton HospitalPlatelets Auto (Bld) [#/Vol] on 04-81-8174Cgqgforio (Bld) [#/Vol]174 10 3/rA370-629HgicggmxxBucyrus Community HospitalRBC Auto (Bld) [#/Vol]on 52-42-5148SEK (Bld) [#/Vol]4.78 10 6/uL4.20-5.40 [facility] Centererum or plasma albumin/globulin mass ratioon 00-92-8909Xphwtsg/Globulin [Mass ratio]1.2 {ratio}[facility] Centererum or plasma anion gap determinationon 60-62-9176Iednx gap [Moles/Vol] 9.1 mmol/LFBluffton HospitalUrine protein/creatinine ratioon 29-40-6973Mpelmxn/Creatinine (U) [Ratio]0.15[facility] Visit Summaryon 39-34-5151Ywzuqwukpi Visit Summary OLIVA MCNULTY :1950 Visit Date:07/20/2023 Ambulatory Visit Instructions Your Diagnosis BMI 31.0-31.9,adult Your Care Team Attending Physician - DOMINIC ORTEGA CNP Primary Care Physician - Dewayne Richey MD This Is Your Medications List Misc Prescription (Freestyle Sam 2 Flash Glucose Monitoring 14 Day System (Sensor)) Misc Prescription (Pen Schneider) Misc Prescription (Pen Schneider) amlodipine aspirin (aspirin 81 mg Oral EC [...] EDT With: Mat JIMENEZ, Dewayne Zhao Where: Family [facility] [id number] [place], [place] [address]- \.br\ Medications\.br\ What How Much When Why Instructions\.br\ Unchanged amlodipine 5 Milligram By Mouth Every [...] 14 days. \.br\ Unchanged Misc Prescription (Pen Schneider) See instructions To be used with admin. of insulin QID. Dx: E11.22 1ea equals 1box \.br\ Unchanged Misc Prescription (Pen Schneider) See instructions To be used with admin. of insulin QID. Dx: 1 EA equals 1box \.br\ Unchanged nitroglycerin (NitroStat 0.4 mg Tab) See instructionsuse as needed for chest pain \.br\ Unchanged rosuvastatin (rosuvastatin 20 mg Tab) 1 Tablets By Mouth Every day\.br\ Unchanged sitagliptin (Januvia 100 mg Tab) See instructions TAKE 1 TABLET BY MOUTHDAILY \.br\ Unchanged trazodone (traZODONE 50 mg Tab) 0.5 Tablets By Mouth Once a day (at bedtime) DM type 2 causing CKD stage 3 BMI 33.0- 33.9,adult Class 1 obesity due to excess calories in adult Nonsmoker GERD (gastroesophageal reflux disease) Insomnia\.br\ Allergies\.br\ No Known Medication Allergies\.br\ Problems\.br\ Ongoing - Any problem that you are currently receiving treatment for.\.br\ Adjustment disorder with disturbance of emotion\.br\ Benign essential HTN\.br\ Benign hypertension with chronic kidney disease, stage III\.br\ BMI 31.0-31.9,adult\.br\ Chronic kidney disease (CKD), stage III (moderate)\.br\ 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\.br\ Complex posttraumatic stress disorder\.br\ Coronary artery disease involving rapp[place]ock coronary artery without angina pectoris\.br\ Diabetic gastroparesis associated with type 2 diabetes mellitus\.br\ Diabetic retinopathy\.br\ DM type 2 causing CKD stage 3\.br\ Gastroparesis\.br\ GERD (gastroesophageal reflux disease)\.br\ Hypercholesterolemia\.br\ Insomnia\.br\ Long-term insulin use\.br\ Osteopenia\.br\ PVC's (premature ventricular contractions)\.br\ Type 2 diabetes mellitus with hypercholesterolemia\.br\ Type 2 diabetes mellitus with stage 3 chronic kidney disease\.br\ Patient Survey\.br\ You may receive a survey via text or e-mail asking about your office visit. Please share your experience with us by completing your survey. We appreciate your feedback and thank you for choosing us for your care.\.br\ \.br\Ja [facility] Medicine Office/Clinic Noteon [phone] Medicine Office/Clinic NoteASH[facility] Staff Oliva Mcnulty 73 presents today for [...] it came back yesterday and today she feelsterrible. SHe has a non-productive cough, poor appetite [...] Home Delivery, 158, cm, 07/20/23 13:42:00 EDT, Height/LengthDosing, 79.3, kg, 07/20/23 13:55:00 EDT, Weight Dosing benzonatate, 100 mg = 1 cap(s), Oral, TID, X 7 day(s), # 21 cap(s), Refills(s) 0, Pharmacy: [facility], 158, cm, 07/20/23 13:42:00 EDT, Height/Length Dosing, 79.3, kg, 07/20/23 13:55:00 EDT,Weight Dosing 3. BMI 31.0-31.9,adult (Z68.31: Body mass index [BMI] 31.0-31.9, adult) The standard range for ages 18 and older is >=18.5 and < 25 kg/m2. Your BMI today was above this range, this falls in the overweight to obese category and there are medical benefits to weight loss. We can offer counselling, referral, and/or medical support in addressing this problem. Your BMIand weight management will be followed at subsequent visits. Chronic kidney disease, stage 3 unspecified (N18.30: Chronic kidney disease, stage 3 unspecified) Other specified bacterial agents as the cause of diseases classified elsewhere (B96.89: Other specified bacterial agents as the cause of diseases classified elsewhere) Follow-up No qualifying data available Patient Education Upper Respiratory Infection, Adult, Dggv-gn-Mezv Problem List/Past Medical History Ongoing Adjustment disorder with disturbance of emotion Benign essential HTN Benign hypertension with chronic kidney disease, stage III BMI 31.0-31.9,adult Chronic kidney disease (CKD), stage III (moderate) 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 Mwry-ziu-dfmkcnc cold medicines. ? Medicines to reduce coughing [...] your fever is gone, or until your doctorsays you may return to work or school. [...] ??1 tsp (3?6 g) of salt in 1cup (237 mL) of warm water. ? Use a cool-mist humidifier to add moisture to the air. This can help you breathe more easily. Eating and drinking ? Drink enough fluid to keep your pee (urine) pale yellow. ? Eat soups and other clear broths. General instructions ? Take qecj-jxb-sfappwe and prescription medicines only as told by your doctor. ? Do not smoke or use any products that contain nicotine or tobacco. If you need help quitting, askyour doctor. ? 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 ? Avoid touching your mouth, face, eyes, [...] get better within 7?10 days. ? Take qdlt-eul-ilwulnk and prescription medicines only as told by your doctor. This information is not intended to replace advice given to you by your health care (more content not included)...[facility] HospitalAmbulatory Visit Summaryon [id number] Visit Summary OLIVA MCNULTY :1950 Visit Date:06/29/2023 Ambulatory Visit Instructions Your Diagnosis Type 2 diabetes mellitus with stage 3 chronic kidney disease, DM type 2 causing CKD stage 3 Benign hypertension with chronic kidney disease, stage III Diabetic gastroparesis associated with type 2 diabetes mellitus Long-term insulin use Benign essential HTN Coronary artery disease involving rapp[place]ock coronary artery without angina pectoris PVC's (premature [...] physician if questions or concerns Misc Prescription ([employer]met[employer] Sam 2 Flash Glucose Monitoring 14 Day System (Sensor)) Misc Prescription (Pen Schneider) Misc Prescription (Pen Schneider) amlodipine aspirin (aspirin 81 mg Oral EC [...] 1:00 PM EDT With: Denia Ding Where: [facility] Wednesday 10:00 AM EDT With: Dewayne Richey MD Where: Family Medicine [address] [place] [phone]- \.br\ Medications\.br\ What How Much When Why Instructions\.br\ Unchanged trazodone (traZODONE 50 mg Tab) 0.5 Tablets By Mouth Once a day (at bedtime) DM type 2 causing CKD stage 3 BMI 33.0- 33.9,adult Class 1 obesity due to excess calories in adult Nonsmoker GERD (gastroesophageal reflux disease) Insomnia Pickup at [facility]\.br\ Un changed amlodipine 5 Milligram By Mouth Every day [...] Glucose Monitoring 14 Day System (Sensor)) See instructionsOsteopenia Long-term insulin use DM type 2 causing ESRD Freestyle Sam 2 Flash Glucose Monitoring 14 Day System (Sensor). Replace sensor every 14 days. Contact prescribing physician if questions or concerns \.br\ Unchanged Misc Prescription (Pen Schneider) See instructions To be used with admin. of i nsulin QID. Dx: 1ea equals 1box Contact prescribing physician if questions or concerns \.br\Unchanged Misc Prescription (Pen Schneider) See instructions To be used with admin. of insulin QID. Dx: 1 EA equals 1box Contact prescribing physician if questions or concerns \.br\ Unchanged mul tivitamin (Foltanx oral tablet) 1 Tablets By Mouth Every day Contact prescribing physician if questions or concerns \.br\ Unchanged nitroglycerin (NitroStat 0.4 mg Tab) See instructions use as neededfor chest pain Contact prescribing physician if questions or concerns \.br\ Unchanged rosuvastatin (rosuvastatin 20 mg Tab) 1 Tablets By Mouth Every day Contact prescribing physician if questions or concerns \.br\ Unchanged sitagliptin (Januvia 100 mg Tab) See instructions TAKE 1 TABLET BY MOUTH DAILY Contact prescribing physician if questions or concerns \.br\ Pharmacy Information\.br\ [facility]: [address] [place], [place] [id number] [phone]\.br\ Allergies\.br\ Arthrotec (Unknown)\.br\ Problems\.br\ Ongoing - Any problem that you are currently receiving treatment for.\.br\ Adjustment disorder with disturbance of emotion\.br\ Benign essential HTN\.br\ Benignhypertension with chronic kidney disease, stage III\.br\ Chronic kidney disease (CKD), stage III (moderate)\.br\ 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\.br\ Complex posttraumatic stressdisorder\.br\ Coronary artery disease involving rapp[place] coronary artery without angina pectoris\.br\Diabetic gastroparesis associated with type 2 diabetes mellitus\.br\ Diabetic retinopathy\.br\ DM type 2 causing CKD stage 3\.br\ Gastroparesis\.br\ GERD (gastroesophageal reflux disease)\.br\ Hyperch olesterolemia\.br\ Insomnia\.br\ Long-term insulin use\.br\ Osteopenia\.br\ PVC's (premature ventricular contractions)\.br\ Type 2 diabetes mellitus with hypercholesterolemia\.br\ Type 2 diabetes mellitus with stage 3 chronic kidney disease\.br\ Patient Survey\.br\ You may receive a survey via textor e-mail asking about your office visit. Please share your experience with us by completing your survey. We appreciate your feedback and thank you for choosing us for your care.\.br\ \.br\Ja [facility] Medicine Office/Clinic Noteon [id number] Medicine Office/Clinic NoteHPI Staff Oliva is a 72 year old [...] 06/29/23 10:10:00 EDT, Weight Dosing A1c POC 38968 Body Mass Index (BMI) documented 3008F Current [...] Recent) 3074F 4. Long-term insulin use (Z79.4: longterm (current) use of insulin) - Diet and [...] Recent) 3074F 6. Coronary artery disease involving rappahannock coronary artery without angina pectoris (I25.10: Atherosclerotic heart disease of rappahannock coronary artery without angina pectoris) - No [...] (BMI) documented 3008F Current (more content not included)...[facility] HospitalComment on above:Result Comment: Electronically Signed By: Dewayne Richey MD\.br\Date and Time Signed: 06/29/23 10:38 EDTConsultation Noteon 20-55-0601Ltfehezxezyv [id number]#1.00TIFFNoThe Bellevue HospitalAmbulatory Visit Summaryon 46-52-3905Yfhbdzsdin Visit Summary OLIVA MCNULTY :1950 Visit Date:03/30/2023 [...] if questions or concerns Misc Prescription (Pen Schneider) Misc Prescription (Pen Schneider) amlodipine aspirin (aspirin 81 mg Oral EC [...] 11:00 AM EST With: Denia Ding Where: [facility] Wednesday 10:00 AM EDT With: Mat JIMENEZ, Dewayne Zhao Where: Family Medicine [place] FallsInvalid Interpretation [address] [place] [address]- \.br\ You Need to Complete the Following\.br\ HgbA1c, Blood, Routine collect, 03/30/23, Order for future visit, Lab Collect, DM type 2 causing CKD stage 3 [facility] LimaCHEMISTRYOrdered By: Tatum Chávez on 03-30-2023 HbA1c (Bld) [Mass fraction]6.4 %High<=5.9%[facility] [place] [place] ChemAutoSSFamily Medicine Office/Clinic Noteon [id number] Medicine Office/Clinic NoteHPI Staff Oliva is a 72 year old female presenting for 6 month follow up dm Do you have any of the following symptoms? Foot Exam: none Eye Exam: UTD Last A1C: Hgb A1C %: 7 % High (10/05/22 17:13:00) Statin: rosuvastatin 20mg flu: UTD 12/21/22 questions/concerns: [facility] History of Present Illness Pt here for [...] bedtime), # 15 tab(s), Refills(s) 0, Pharmacy: [id number], 158, cm, 03/30/23 10:02:00 EST, Height/Length Dosing, [...] bedtime), # 15 tab(s), Refills(s) 0, Pharmacy: [facility] #[id number], 158, cm, 03/30/23 10:02:00 EST, Height/Length Dosing, [...] bedtime), # 15 tab(s), Refills(s) 0, Pharmacy: [facility] #[id number], 158, cm, 03/30/23 10:02:00 EST, Height/Length Dosing, [...] bedtime), # 15 tab(s), Refills(s) 0, Pharmacy: [facility] #[id number], 158, cm, 03/30/23 10:02:00 EST, Height/Length Dosing, [...] 15 tab(s), Refills(s) 0, Pharmacy: [facility] #[id number], 158, cm, 03/30/23 10:02:00 EST, Height/Length Dosing, 82.6, kg, 03/30/23 10:02:00 EST, Weight Dosing HgbA1c 6. Insomnia (G47.00: Insomnia, unspecified) - Will try trazodone. Ordered: trazodone, 25 mg = 0.5 tab(s), Oral, Once a day (at bedtime), # 15 tab(s), Refills(s) 0, Pharmacy: [facility] #[id number], 158, cm, 03/30/23 10:02:00 EST, Height/Length Dosing, 82.6, kg, 03/30/23 10:02:00 EST, Weight Dosing Chronic kidney disease, stage 3 unspecified (N18.30: Chronic kidney disease, stage 3 unspecified) Orders: multivitamin, 1 tab(s), Oral, Daily, 90 tab(s), Refill(s) 0, [facility] #[facility] (more content not included)...NormalScci Hospital LimaComment on above:Result Comment: Electronically Signed By: Mat JIMENEZ, Dewayne Lynn.br\Date and Time Signed: 03/30/23 10:35 BZLSzsY8zpt 06-47-6291RjL7f (Bld) [Mass fraction]6.4 %High<=5.9 [facility] Hospital LimaComment on above:Performed By: #### [id number] ####[facility] [address] [place] [address] Patient Educationon [id number] EducationNutrition BMI for Adults What is BMI? Body mass index (BMI) is a number that is calculated from a person's weight and height. BMI can help estimate how much of a person's weight is composed of fat. BMI does not measure body fat directly.Rather, it is an alternative to procedures that [...] your height. Both height and weight are measured,and the BMI is calculated from those numbers. This can be done either in [place]ian ([place] or metric measurements. Note that charts and online BMI calculators are available to help you find your BMI quickly and easily without having to do these calculations yourself. To calculate your BMI in [place]ian ([place] measurements: 1. Measure your weight in [...] meters squared number. In this example: 70 ?3.1 = 22.6. This is your BMI. What [...] for Disease Control and Prevention: www.cdc.gov ? [place] Heart Association: www.heart.org ? National Heart, Lung, and Blood [place]: www.nhlbi.nih.gov Summary ? Body mass index (BMI) is a number that is calculated from a person's weight and height. ? BMI may help estimate how much of a person's weight is composed of fat. BMI can help identify those who may be at higher risk for certain medical problems. ? BMI can be measured using Croatian measurements or metric measurements. ? BMI charts are used to identify whether you are underweight, normal weight, overweight, or obese. This information is not intended to replace advice given to you by your health care provider. Make sure you discuss any questions you have with your health care provider. Document Revised: 10/18/2019 Document Reviewed: 08/25/2019 [employer] Patient Education ? 2022 [employer].[facility] GLYCOHEMOGLOBIN A1Con [id number] RECOMMENDATIONSEE BELOWLima City HospitalComment on above:Result Comment: ADA RECOMMENDED LIMIT 4.0 - 6.0 ADA THERAPEUTIC TARGET < 7.0 ACTION SUGGESTED > 7.0Performed By: #### A1C #### [facility] [address] [address] [address] Adarsh SkinnerGlucose [Mass/Vol]146 mg/dLNoMiami Valley HospitalComment on above:Performed By: #### A1C #### [facility] [address] [address] [address] Adarsh SkinnerHbA1c (Bld) [Mass fraction]6.7 %Critically high4.5-6.2The [facility] Medical CenterComment on above:Performed By: #### A1C #### [facility] [address] [address] [address] Adarsh SkinnerOffice Visit (Cardiology)on 13-11-8892Rkkebk-up visit Diagnoses/Problems Assessed Diabetes (250.00) (E11.9) Hyperlipidemia [...] Weight Tips; Status:Complete - Retrospective Authorization; Done: [id number] Some eating tips that can help you lose weight.; Status:Complete - Retrospective Authorization; Done: [id number] Hyperlipidemia Renew: Rosuvastatin Calcium 20 MG Oral Tablet; TAKE 1 TABLET AT BEDTIME SocHx: Never smoker Tobacco Use Screening; Status:Complete; Done: [id number] Patient Instructions Please bring all medicines, vitamins, [...] Lantus 100 UNIT/ML Subcutaneous SolutionINJECT SUBCUTANEOUSLY DIRECTED. M-Hoiegcaqmgls-P9-B12 3-35-2 MG TABSTake 1 tablet daily Losartan [...] negative for complaint. Vitals Vital Signs Recorded: 19Jun2022 10:14AM Heart Rate66, R Radial Pbkvdskk173, RUE, Sitting Ruvosdcnd14, RUE, Sitting Height5 ft 2 in (more content not included)...NormalUH TouchworksTobacco Screening.on 46-22-5415Hvsvy depression screening assessmentYeNorth Country Hospital [facility] Work Phone: [phone] depression screening assessmentNoVeterans Health Administration [facility] [address] DO Work Phone: [phone] depression screening assessmentMild (5-9)[facility] DO Work Phone: [phone] risk assessmenta) No falls within the last year [facility] Hospit[facility] [address] DO Work Phone: Tobacco use status CPHSb) NoMSamaritan Healthcare [facility] [place] [address] Work Phone: [phone] Screening.1-Several daysVeterans Health Administration [facility] [place] [address] DO Work Phone: [phone] Screening.3-Nearly every dayVeterans Health Administration [facility] [address] DO Work Phone: [phone] Screening.2-More than half the daysVeterans Health Administration HeartH[facility] Valley Hospitalk [address] DO Work Phone: Tobacco Screening.0-Not at allVeterans Health Administration [facility] [place] [address] DO Work Phone: [phone] Screening.Somewhat DifficultVeterans Health Administration [facility] [address] DO Work Phone: [phone] A1Con [id number] RECOMMENDATIONSEE Summa HealthComment on above:Result Comment: ADA RECOMMENDED LIMIT 4.0 - 6.0 ADA THERAPEUTIC TARGET < 7.0 ACTION SUGGESTED > 7.0Performed By: #### A1C #### [facility] [address] [place], [place] [address] Dr. Adarsh SkinnerGlucose [Mass/Vol]148 mg/dLNoMiami Valley HospitalComment on above:Performed By: #### A1C #### [facility] [address] [place], [place] [address] Dr. Adarsh SkinnerHbA1c (Bld) [Mass fraction]6.8 %Critically high4.5-6.2The [facility] Medical CenterComment on above:Performed By: #### A1C #### [facility] [address] [place], [place] [address] Dr. Adarsh SkinnerCardiovasc Arrhythmia Resultson 83-75-8904Sfdxfagkhd Arrhythmia ResultsReason For Visit Reason for Visit: Holter Monitor: JADE is here for the application of a 24 hour Holter monitor. Ordering Physician: Dr. Zak Nguyen MD Diagnosis: pvc NO equipment agreement signed. JADE understands monitor is to be returned on: 02/24/22 Monitor number [id number] applied. Holter monitor returned and downloaded. Holter monitor printed and placed on Dr. Zak Nguyen MD desk to dictate. Diagnosis/Problems Assessed PVC's (premature ventricular contractions) (427.69) (I49.3) Patient Discussion/Summary Patient underwent 24-hour Holter monitoring for complaints of shortness of breath, palpitation, andPVCs. The following observations are made: 1. Rhythm [...] symptoms reported in the diary. Future Appointments Date/TimeProviderSpecialtySite 06/19/2022 10:10 Zak Moe [address] DO Signatures Electronically signed by : Fanny Zelaya L.P.N.; Feb 24 2022 11:03AM EST (Author) Electronically signed by : Zak Nguyen MD; Mar 05 2022 11:58AM EST (Author) [facility] TouchworksOffice Visit (Cardiology)on 11-14-6865Xjeabq-up visit Diagnoses/Problems Assessed PVC's (premature ventricular contractions) [...] in adult Healthy Weight Tips; Status:Complete; Done: 94Rbu9931 Some eating tips that can help you lose weight.; Status:Complete; Done: 81Alp2901 PVC's (premature ventricular contractions) IO Holter Monitor up to 48 Hrs; Status:Complete; Done: 57Ovs0265 SocHx: Never smoker Tobacco Use Screening; Status:Complete; Done: 30Xgv0370 Patient Instructions Please bring all medicines, vitamins, [...] this to exclude other sim unrecognized frequent v entricular arrhythmias that may escape detection during this [...] Lantus 100 UNIT/ML Subcutaneous SolutionINJECT SUBCUTANEOUSLY DIRECTED. I-Ebpgayiegipq-N0-B12 3-35-2 MG Oral TabletTake 1 tablet daily [...] other systems have been (more content not included)...NormalUH Touchworks Tobacco Screening.on 51-45-1881Nqsm risk assessmenta) No falls within the last yearVeterans Health Administration XenaptoOstr[address] Work Phone: Tobacco use status CPHSb) NoMPark Nicollet Methodist Hospitalk [address] DO Work Phone: CBC AUTO DIFFon 81-16-2208ALPL #0.1 103/ulNormal 0.0-0.1C[facility] ClinicComment on above:Performed By: #### CBC #### [facility] [address] [address] [address] Adarsh SkinnerBasophils/100 WBC (Bld)0.7 %Normal0.2-2.0[facility] Comment on above:Performed By: #### CBC #### [facility] [address] [address] [address] Adarsh Salvador #0.2 103/ulNormal0.0-0.7The [facility] Medical CenterComment on above: Performed By: #### CBC #### [facility] [address] [address] [address] Adarsh Diamondosinophils/100 WBC (Bld)2.0 %Normal0.9-7.0The [facility] Comment on above:Performed By: #### CBC #### [facility] [address] [place] [address] Dr. Adarsh Diamondrythrocyte distribution width (RBC) [Ratio]15.9 %Critically high 11.0-15.0The [facility] Medical CenterComment on above:Performed By: #### CBC #### [facility] [address] [address] [address] Adarsh SkinnerHematocrit (Bld) [Volume fraction]41.7 %Lmryng08.0-48.0The [facility] CenterComment on above:Performed By: #### CBC #### [facility] [address] [place] [address] Dr. Adarsh SkinnerHemoglobin (Bld) [Mass/Vol]13.2 g/iZXcliuj00.0-16.0The [facility] CenterComment on above:Performed By: #### CBC #### [facility] [address] [place] [address] Dr. Adarsh Gandhi #0.03 10e3/ulNormal0.00-0.03The [facility] Medical CenterComcorewell health butterworth hospital on above:Performed By: #### CBC #### [facility] [address] [place] [address] Dr. Adarsh Gandhi %0.3 %Normal0.0-0.5The [facility] Medical CenterComment on above: Performed By: #### CBC #### [facility] [address] [place] [address] Dr. Adarsh Zabala #1.9 103/ulNormal1.2-3.8The [facility] CenterComment on above:Performed By: #### CBC #### [facility] [address] [place] [address] Dr. Adarsh Watermanmphocytes/100 WBC (Bld)20.6 %Miocjm18.5-60.0The [facility] CenterComment on above:Performed By: #### CBC #### [facility] [address] [place] [address] Dr. Adarsh CasillasUAL DIFF REQNONormalThe [facility] Medical CenterComment on above: Performed By: #### CBC #### [facility] [address] [place] [address] Dr. Adarsh Blackwood (RBC) [Entitic mass]26.8 urIrcphv40.7-34.0The [facility] CenterComment on above:Performed By: #### CBC #### [facility] [address] [place] [address] Dr. Adarsh Farrar (RBC) [Mass/Vol]31.7 g/pAEfhubp71.9-35.2The [facility] CenterComment on above:Performed By: #### CBC #### [facility] [address] [place] [address] Dr. Adarsh FarrarV (RBC) [Entitic vol]84.8 iKJqaemm98.0-99.0The [facility] CenterComment on above:Performed By: #### CBC #### [facility] [address] [place] [address] Dr. Adarsh Stern #0.7 103/ulNormal0.3-0.8The [facility] CenterComment on above:Performed By: #### CBC #### [facility] [address] [place] [address] Dr. Adarsh Maddenocytes/100 WBC (Bld)7.2 %Normal1.7-12.0The [facility] Comment on above:Performed By: #### CBC #### [facility] [address] [place] [address] Dr. Adarsh Juárez #6.4 103/ulNormal1.4-6.5The [facility] CenterComment on above:Performed By: #### CBC #### [facility] [address] [place] [address] Dr. Adarsh Manzanaresutrophils/100 WBC (Bld)69.2 %Dbwlpr70.0-75.0The [facility] CenterComment on above:Performed By: #### CBC #### [facility] [address] [place] [address] Dr. Adarsh Toussaintlet mean volume (Bld) [Entitic vol]12.2 fLNormal9.5-13.5The [facility] CenterComment on above:Performed By: #### CBC #### [facility] [address] [place] [address] Dr. Adarsh SkinnerPLT217 103/ywYqpscp791-486Pdu [facility] on above: Performed By: #### CBC #### [facility] [address] [address] [address] Adarsh SkinnerRBC4.92 106/ulNormal4.20-5.40The [facility] on above:Performed By: #### CBC #### [facility] [address] [address] [address] Adarsh SkinnerWBC9.2 103/ulNormal4.0-11.0The [facility] CenterComcorewell health butterworth hospital on above: Performed By: #### CBC #### [facility] [address] [address] [address] Adarsh SkinnerGLYCOHEMOGLOBIN A1Con 17-88-2496CML RECOMMENDATIONSEE BELOWLouis Stokes Cleveland Va Medical CenterComcorewell health butterworth hospital on above:Result Comment: ADA RECOMMENDED LIMIT 4.0 - 6.0 ADA THERAPEUTIC TARGET < 7.0 ACTION SUGGESTED > 7.0Performed By: #### A1C ####[facility] [address] [address]Dr. Adarsh SkinnerGlucose [Mass/Vol]143 mg/dLNoMiami Valley HospitalComcorewell health butterworth hospital on above:Performed By: #### A1C ####[facility] [address] [address]Dr.Yilan SkinnerHbA1c (Bld) [Mass fraction]6.6 % Critically high4.5-6.2The [facility] on above:Performed By: #### A1C ####[facility] [address] [address]Dr. Adarsh SkinnerLIPID PROFILEon 22-45-1021OZFP-HDL RATIO NORMSEE [facility] HealthComcorewell [facility] on above:Result Comment: 3.3 - 4.4 LOW RISK 4.4 - 7.1 AVERAGE RISK 7.1 - 11.0 MODERATE RISK >11.0 HIGH RISKPerformed By: #### CMP, LIPID #### [facility] [address] [address] [address] Adarsh SkinnerCholesterol [Mass/Vol]121 mg/dLNoal<=200[facility] Comment on above:Performed By: #### CMP, LIPID #### [facility] [address] [address] [address] Adarsh SkinenrCholesterol in HDL [Mass/Vol]55 mg/iFAqciho09-82DfoCleveland ClinicComment on above:Performed By: #### CMP, LIPID #### [facility] [address] [place] [address] Dr. Adarsh Joesterol in LDL [Mass/Vol]50.8 mg/dLNoMiami Valley HospitalComment on above:Performed By: #### CMP, LIPID #### [facility] [address] [place] [address] Dr. Adarsh Dawn.total/Cholesterol in HDL [Mass ratio]2.2 {ratio} NormalThe [facility] CenterComment on above:Performed By: #### CMP, LIPID #### [facility] [address] [place] [address] Dr. Adarsh Green NORMAL> or = 60 mg/dl - LOW CARDIOVASCULAR RISK <40 mg/dl - HIGH CARDIOVASCULAR RISKLima City HospitalComment on above:Performed By: #### CMP, LIPID #### [facility] [address] [place] [address] Dr. Adarsh Jackson CALC NORMALSEE BELOWLima City HospitalComment on above:Result Comment: <100 mg/dl OPTIMAL 100 - 129 mg/dl NEAR OR ABOVE OPTIMAL 130 - 159 mg/dl BORDERLINE HIGH 160 - 189 mg/dl HIGH >190 mg/dl VERY HIGH Performed By: #### CMP, LIPID #### [facility] [address] [place] [address] Dr. Adarsh SkinnerTriglyceride [Mass/Vol]76 mg/dLNormal<=150The [facility] Comment on above:Performed By: #### CMP, LIPID #### [facility] [address] [place] [address] Dr. Adarsh DurandLDL CALC15.2 mg/dLNoMiami Valley HospitalComment on above: Performed By: #### CMP, LIPID #### [facility] [address] [address] [address] Adarsh Chen 14(COMP METB)on 68-58-2496Cinhcsx [Mass/Vol]3.6 g/dLNormal 3.4-5.0[facility] ClinicComment on above:Performed By: #### CMP, LIPID #### [facility] [address] [address] [address] Adarsh SkinnerAlbumin/Globulin [Mass ratio]1.1 {ratio}NormalThe [facility] CenterComment on above:Performed By: #### CMP, LIPID #### [facility] [address] [place] [address] Dr. Adarsh Fuller [Catalytic activity/Vol]57 U/DUyiuqv36-646Vvq [facility] CenterComment on above:Performed By: #### CMP, LIPID #### [facility] [address] [place] [address] Dr. Adarsh Medina [Catalytic activity/Vol]23 U/ZKijshl86-96Paa [facility] CenterComment on above:Performed By: #### CMP, LIPID #### [facility] [address] [place] [address] Dr. Adarsh Hu gap [Moles/Vol]14.7 mmol/LNormalThe [facility] Comment on above:Performed By: #### CMP, LIPID #### [facility] [address] [place] [address] Dr. Adarsh Cosby [Catalytic activity/Vol]29 U/ECcbzyp48-47Knq [facility] CenterComment on above:Performed By: #### CMP, LIPID #### [facility] [address] [place] [address] Dr. Adarsh SkinnerBilirubin [Mass/Vol]0.8 mg/dLNormal0.2-1.0The [facility] Comment on above:Performed By: #### CMP, LIPID #### [facility] [address] [place] [address] Dr. Adarsh SkinnerCalcium [Mass/Vol]10.2 mg/dLCritically high8.5-10.1The [facility] CenterComment on above:Performed By: #### CMP, LIPID #### [facility] [address] [place] [address] Dr. Adarsh SkinnerChloride [Moles/Vol]104 mmol/LMxowgs78-189Ufm [facility] Comment on above:Performed By: #### CMP, LIPID #### [facility] [address] [place] [address] Dr. Adarsh SkinnerCO2 [Moles/Vol]25.0 mmol/NChsucs45.0-32.0The [facility] Comment on above:Performed By: #### CMP, LIPID #### [facility] [address] [place] [address] Dr. Adarsh SkinnerCreatinine [Mass/Vol]1.32 mg/dLCritically high0.55-1.02The [facility] CenterComment on above:Performed By: #### CMP, LIPID #### [facility] [address] [place] [address] Dr. Adarsh DiamondGFR-AF LITPQQLH47 mL/min/1.26d5Posrahexsu low>=60The [facility] CenterComment on above:Performed By: #### CMP, LIPID #### [facility] [address] [place] [address] Dr. Adarsh DiamondGFR-NON AF NHTYERBU79 mL/min/1.78y8Cnaxkzdgzd low>=60The [facility] CenterComment on above:Performed By: #### CMP, LIPID #### [facility] [address] [place] [address] Dr. Adarsh SkinnerGlobulin (S) [Mass/Vol]3.4 g/dLNormalThe [facility] CenterComment on above:Performed By: #### CMP, LIPID #### [facility] [address] [place] [address] Dr. Adarsh SkinnerGlucose [Mass/Vol]177 mg/dLCritically htmi17-211Kov [facility] CenterComment on above:Performed By: #### CMP, LIPID #### [facility] [address] [place] [address] Dr. Adarsh SkinnerPotassium [Moles/Vol]4.7 mmol/LNormal3.5-5.1The [facility] Comment on above:Performed By: #### CMP, LIPID #### [facility] [address] [address] [address] Adarsh SkinnerProtein [Mass/Vol]7.0 g/dLNormal6.4-8.2[facility] Comment on above:Performed By: #### CMP, LIPID #### [facility] [address] [address] [address] Adarsh SkinnerSodium [Moles/Vol]139 mmol/LNerhst704-244DpbC[facility] Clinic Comment on above:Performed By: #### CMP, LIPID #### [facility] [address] [address] [address] Adarsh SkinnerUrea nitrogen [Mass/Vol]20.0 mg/dLCritically high7.0-18.0[facility] ClinicComment on above:Performed By: #### CMP, LIPID #### [facility] [address] [place] [address] Dr. Adarsh Monte nitrogen/Creatinine [Mass ratio]15.2 mg/mgNormalThe [facility] CenterComment on above:Performed By: #### CMP, LIPID #### [facility] [address] [place] [address] Dr. Adarsh Denton Screening.on 21-21-6010Oiti risk assessmenta) [facility] within the [facility] year[facility] 600 [facility] Work Phone: Tobacco use status CPHSb) [facility] 600 DO Work Phone: MG MAMM SCREEN 3D GILSON CADon 51-65-2027ID MAMM SCREEN 3D GILSON CADPatient: JADE MCNULTY Exam Date: 12/01/2021 : 1950 Gender:F Ordering : DR DOMONIQUE HATFIELD . Admission #: [id number] Family : Order #: [id number] CLICK HERE TO VIEW EXAM RADIOLOGY REPORT [...] Treatments None Family Cancers None LOCATION: [facility] BREAST COMPOSITION: Scattered areas fibroglandular density. FINDINGS: [...] by: Javad Kendall MD on 12/01/2021 at 11:22[facility] GLYCOHEMOGLOBIN A1Con [id number] RECOMMENDATIONSEE BELOWLima City HospitalComcorewell health butterworth hospital on above:Result Comment: ADA RECOMMENDED LIMIT 4.0 - 6.0 ADA THERAPEUTIC TARGET < 7.0 ACTION SUGGESTED > 7.0Performed By: #### A1C #### [facility] [address] [place] [address] Dr. Adarsh SkinnerGlucose [Mass/Vol]154 mg/dLLima City HospitalComcorewell health butterworth hospital on above:Performed By: #### A1C #### [facility] [address] [place] [address] Dr. Adarsh SkinnerHbA1c (Bld) [Mass fraction]7.0 %Critically high4.5-6.2The [facility] CenterComment on above:Performed By: #### A1C #### [facility] [address] [place] [address] Dr. Adarsh Denton Screening.on 74-60-1503Svdc risk assessmenta) No falls within the last yearV[facility] 600 DO Work Phone: Tobacco use status CPHSb) [facility] [employer] 600 DO Work Phone: MICROALBUMIN, RAND URon 47-35-8682jMIZ18.9 mg/LNormal <=30.0The [facility] CenterComment on above:Performed By: #### MALBR #### [facility] [address] [address] [address] Adarsh SkinnerPROF CHEM 8 (BAS METB)on 03-41-5594Dbytq gap [Moles/Vol]20.0 mmol/LNormalThe [facility] CenterComment on above:Performed By: #### BMP #### [facility] [address] [address] [address] Adarsh SkinnerCalcium [Mass/Vol]9.6 mg/dLNormal8.5-10.1The [facility] Comment on above:Performed By: #### BMP #### [facility] [address] [address] [address] Adarsh SkinnerChloride [Moles/Vol]106 mmol/TPetega42-189Yhi [facility] Comment on above:Performed By: #### BMP #### [facility] [address] [address] [address] Adarsh SkinnerCO2 [Moles/Vol]17.4 mmol/LCritically low21.0-32.0The [facility] CenterComment on above:Performed By: #### BMP #### [facility] [address] [address] [address] Adarsh SkinnerCreatinine [Mass/Vol]1.28 mg/dLCritically high0.55-1.02The [facility] CenterComment on above:Performed By: #### BMP #### [facility] [address] [address] [address] Adarsh DiamondGFR-AF EXTFBHUL45 mL/min/1.61o3Xtysrmgpfm low>=60The [facility] CenterComment on above:Performed By: #### BMP #### [facility] [address] [address] [address] Adarsh DiamondGFR-NON AF PZVZYWED80 mL/min/1.26o5Vjsrcmbrkn low>=60The [facility] CenterComment on above:Performed By: #### BMP #### [facility] [address] [address] [address] Adarsh SkinnerGlucose [Mass/Vol]50 mg/dLCritically eoa62-892Adt [facility] CenterComment on above:Performed By: #### BMP #### [facility] [address] [address] [address] Adarsh SkinnerPotassium [Moles/Vol]4.3 mmol/LNormal3.5-5.1The [facility] Comment on above:Performed By: #### BMP #### [facility] [address] [address] [address] Adarsh SkinnerSodium [Moles/Vol]141 mmol/JAcqlom438-016Rxn [facility] Comment on above:Performed By: #### BMP #### [facility] [address] [address] [address] Adarsh SkinnerUrea nitrogen [Mass/Vol]17.0 mg/dLNormal7.0-18.0The [facility] CenterComment on above:Performed By: #### BMP #### [facility] [address] [address] [address] Adarsh SkinnerUrea nitrogen/Creatinine [Mass ratio]13.2 mg/mgNormalThe [facility] CenterComment on above:Performed By: #### BMP #### [facility] [address] [address] [address] Adarsh SkinnerPHQ-2 [facility] 70-10-1886Xrsfu depression screening assessmentYes [address] [address] DO Work Phone: Adult depression screening assessmentNo[address] [address] DO Work Phone: PHQ-2 VITALS0-Not at all[address] [address] DO Work Phone: PHQ-2 VITALS1-Several days[address] [address] DO Work Phone: PHQ-2 VITALS3-Nearly every day[address] [place] [address] DO Work Phone: PHQ-2 VITALSNot difficult at [facility] [address] 250 DO Work Phone: Tobacco Screening.on 18-65-0942Wdjk risk assessmentb) One or more falls in the last yearV[facility] 250 DO Work Phone: Tobacco use status CPHSb) [facility] [address] DO Work Phone: NM MYOCARDIAL PERFUSION MULTI SPECTon [id number] MYOCARDIAL PERFUSION MULTI SPECTPatient Info Name: JADE MCNULTY Age: 71 years : 1950 Gender: Female Ht: 157 cm Wt: 98 kg BSA: 2.13 m2 Exam Date: 07/02/2021 12:11 PM Patient Status: Inpatient Exam Type: NM MYOCARDIAL PERFUSION MULTI SPECT Study Info Indications - CAD screening, intermediate CAD risk, not treadmill candidate Attending Physician: Autumn Jc [id number] Primary Nurse: Violet Hope RN Secondary Nurse: [...] infusion. [employer]. Radiopharmaceutical: Tc-99m Sestamibi Camera Used: [employer]ks [employer]arm[employer]: Tc-99m Sestamibi Camera Used: [employer] Image Protocol Protocol: Rest/Stress 1 Day Rest [...] Global Ischemia Extent: 1 % Functional Results Name Value Normal Stress Stress LV Ejection Fraction 86 % 55-70 Stress LV End Systolic Volume 11.00 ml Nuclear Stress Cardiac Output 5.90 l/min Stress LV End Diastolic Volume 78.00 ml Transient Ischemic Dilatation 1.21 Nuclear Stress Myocardial Mass 126.00 g Functional Results Name Value Normal Rest Resting LV Ejection Fraction 78 % 55-70 [...] 07/02/2021 03:34 PM Dict (more content not included)...[facility] MunsterComment on above:Order Comment: Injury/Trauma or Illness?:Illness/Other How long have you had these symptoms (acute/chronic)?:Acute Reason for exam?:CAD screening Type of Exam?:Ongoing Additional signs and symptoms?:noECHOCARDIOGRAM COMPLETEon 07-01-2021 ECHOCARDIOGRAM COMPLETEPatient Info Name: JADE MCNULTY Age: 71 years : 1950 Gender: Female Ht: 157 cm Wt: 64 kg BSA: 1.68 m2 BP: 160 / 79 mmHg Exam Date: 07/01/2021 10:16 AM Patient Status: Inpatient Candy Cutter Machine: Laura Shaw RDMS, RVT Exam Type: ECHOCARDIOGRAM COMPLETE Study Info Indications - Other - Palpitations Attending Physician: [facility] FAYE Referring Physician: STAN Lechuga; [id number] BMI: 25.61 kg/m2 Summary 1. Normal cardiac [...] appearance and dimension. Left Ventricular Outflow Tract Name Value Normal LVOT 2D LVOT Diameter 1.8 cm LVOT Doppler LVOT Peak Velocity 0.8 m/s LVOT Peak Gradient 3 mmHg LVOT Mean Gradient 2 mmHg LVOT VTI 23 cm LVOT VTI/AV VTI Ratio 0.7 LVOT Stroke Volume 57 ml LVOT Stroke Index 33.94 ml/m2 Pulmonic Valve Name Value Normal PV Doppler PV Peak Velocity 0.77 m/s PV Peak Gradient 2 mmHg Mitral Valve Name Value Normal MV Doppler MV Decel Drew 593 cm/s2 MV PHT 39 ms MV Area (PHT) 5.7 cm2 4.0-5.0 MV Regurgitation Doppler MR Peak Gradient 138 mmHg MV Diastolic Function MV E Peak Velocity 0.79 m/s MV A Peak Velocity 0.88 m/s MV E/A 0.9 MV Decel Time 133 ms MV Annular TDI MV Septal e' Velocity 4.6 cm/s >=8.0 MV E/e' (Septal) 17.2 <=8.0 MV Lateral e' Velocity 6.2 cm/s >=10.0 MV E/e' (Lateral) 12.8 <=8.0 MV e' Average 5.38 cm/s MV E/e' (Average) 15.0 Tricuspid Valve Name Value Normal (more content not included)...[facility]sterXR CHEST PA/APon [id number] CHEST PA/APEXAMINATION: XR CHEST PA/AP 06/30/2021 9:51 pm HISTORY: [...] blood sugar [facility]. Pt is having runs of [...] MEYER on WedJune 30, 2021 10:21:35 PM EDTNoMarion General HospitalComment on above:Order Comment: Injury/Trauma or Illness?:Illness/Other How long have you had these symptoms (acute/chronic)?:Acute Reason for exam?:irreg heart beat History of cancer?:uk Surgeries, chemotherapy, or radiation?:cardiac stent Type of Exam?:Initial Additional signs and symptoms?:Patient was unable to get out of vehicle and was assisted out of [facility] staff. Patient was screaming help me and slouched in wheelchair. Patient was taken straight backto room 14. Family states her blood sugar was really low [place] [facility] [place]. Pt is having runs of [place] harris MD aware. Pads attached to monitor at this time Vital Signs Date TimeVital SignValuePerforming InlxomttgZqzmuoep14-78-4029 10:0500Body .48 [facility]02-04-2025 10:22-0500Body mass index (BMI) [Ratio]30.5 kg/p1TehugcedqBucyrus Community Hospital02-04-2025 10:-0500Body fnqmwjwadmd10.3 [degF][facility]02-04-2025 10:0500Body bgygiv03.74 kgBucyrus Community Hospital02-04-2025 10:22-0500Diastolic blood mm[Hg][facility] 03-14-2024 10:22-0500Heart rate88 /[facility] 03-14-2024 10:0500Respiratory rate16 /[facility] 03-14-2024 10:4275OxG1% (BldA) [Mass fraction]97 %[facility]02-04-2025 10:22-0500Systolic blood aeervnit365 mm[Hg][facility]12-18-2024 10:020500Body .5 cmZak Hancock DO Work Phone: [facility]12-18-2024 10:02-0500 Body mass index (BMI) [Ratio]31.75 kg/c7EpbrujhZak Hancock DO Work Phone: [phone]12-18-2024 10:02-0500 Body .74 kgZak Hancock DO Work Phone: [facility]12-18-2024 10:02-0500 Diastolic blood eydxlixq08 mm[Hg]Zak Santi DO Work Phone: [phone] [place], [place] 1514712-18-2024 10:02-0500 Heart rate82 /Teresita Hancock DO Work Phone: [phone] [place], [place] 1514712-18-2024 10:02-0500 Systolic blood hvppqwig238 mm[Hg]Zak Hancock DO Work Phone: [phone] [place], [place] 1514708-20-2024 10:29-040 Body eqfgtj602.48 cmBucyrus [facility] Hospital08-20-2024 10:Body mass index (BMI) [Ratio]31.6 kg/o6AepfjksyeBucyrus Community Hospital08-20-2024 10:Body qznlokmwopi32.4 [degF][facility]08-20-2024 10:Body ouukyh33.47 kgBucyrus Community Hospital08-20-2024 10:Diastolic blood iildfenk25 mm[Hg][facility] 09-28-2023 10:Heart rate84 /[facility] 09-28-2023 10:Respiratory rate16 /[facility] 09-28-2023 10:7945NrS7% (BldA) [Mass fraction]96 %[facility]08-20-2024 10:Systolic blood jcfbqjxu127 mm[Hg][facility]03-21-2024 13:41-0400Body bdlynb458.5 cmGary Chávez PROVIDER NETWORK MGR-CLAIMS SERVICE REPRESENTATIVE Work Phone: [facility]03-21-2024 13:41-0400 Body mass index (BMI) [Ratio]32.37 kg/i6UwclyGary Chávez PROVIDER NETWORK MGR-CLAIMS SERVICE REPRESENTATIVE Work Phone: [facility]03-21-2024 13:41-0400 Body .29 kgGary Chávez PROVIDER NETWORK MGR-CLAIMS SERVICE REPRESENTATIVE Work Phone: [facility]03-21-2024 13:41-0400 Diastolic blood lhdbtsob79 mm[Hg]Gary Chávez PROVIDER NETWORK MGR-CLAIMS SERVICE REPRESENTATIVE Work Phone: [facility]03-21-2024 13:41-0400 Heart rate80 /Loli Chávez PROVIDER NETWORK MGR-CLAIMS SERVICE REPRESENTATIVE Work Phone: [facility]03-21-2024 13:41-0400 Systolic blood kyxrfnzp070 mm[Hg]Gary Chávez PROVIDER NETWORK MGR-CLAIMS SERVICE REPRESENTATIVE Work Phone: [facility]01-23-2024 10:00-0500 Body izcdwz078.48 Rosa Steward Other [employer] Other 01-23-2024 10:00-0500Body mass index (BMI) [Ratio] 32.55 kg/m2Azyecenia Bakchantels Other [employer] Other 01-23-2024 10:00-0500Body wfdvgezfqka05.6 [degF]Azyecenia Celsos Other [employer] Other 01-23-2024 10:00-0500Body .74 kgAzyecenia Bakchantels Other [employer] Other 01-23-2024 10:00-0500Diastolic blood vtuxblov28 mm[Hg] Azyecenia Celsos Other [employer] Other 01-23-2024 10:00-0500Respiratory rate18 /minAzyecenia Vargaschantels Other [employer] Other 01-23-2024 10:00-9546HzB2% (BldA) [Mass fraction]99 % Azyecenia Bakhous Other [employer] Other 01-23-2024 10:00-0500Systolic blood jiivtunk660 mm[Hg] Azyecenia Bakhous Other [employer] Other 08-08-2023 11:40-0400Body guxcop685.48 cmAziz Bakchantels Other [employer] Other 08-08-2023 11:40-0400Body mass index (BMI) [Ratio] 32.92 kg/m2Ramsey Vargashous Other [employer] Other 08-08-2023 11:40-0400Body ocepbqypele65.1 [degF]Ramsey Steward Other [place] [employer] Other 08-08-2023 11:40-0400Body .65 kgRamsey Steward Other [place] [employer] Other 08-08-2023 11:40-0400Diastolic blood vunjlqsm94 mm[Hg] Ramsey Steward Other [employer] [place] [employer] Other 08-08-2023 11:40-0400Respiratory rate18 /minRamsey Steward Other [place] [employer] Other 08-08-2023 11:40-8070GtS7% (BldA) [Mass fraction]97 % Ramsey Steward Other [place] [employer] Other 08-08-2023 11:40-0400Systolic blood fcwuckvh374 mm[Hg] Ramsey Steward Other [place] [employer] Other 05-12-2023 10:14-0400Body czylae508.48 cmKim Mason [employer] Work Phone: [phone]-Isncv [place] [facility] 600 DO Work Phone: [phone]) 206-566905-12-2023 10:14-0400Body mass index (BMI) [Ratio] 34.39 kg/m2Ki Mason [employer] Work Phone: [phone]-Qxxod [place] [facility] 600 DO Work Phone: [phone]) 540-726105-12-2023 10:14-0400Body surface area Derived from formula1.86 m2Ki Mason [employer] Work Phone: [phone]-Cnybb [place] [facility] 600 DO Work Phone: [phone]) [phone] 10:14-0400Body .28 kgKiautumn Gonzalezight Work Phone: [phone]-Fvror [place] [facility] 600 DO Work Phone: [phone]) [phone] 10:14-0400Diastolic blood zriyhgsu22 mm[Hg] Domonique Mason [place]field Work Phone: [phone]-Rkewe [place] [facility] 600 DO Work Phone: [phone]) 174-922805-12-2023 10:14-040Heart rate66 /minKim Mason [place]field Work Phone: [phone]-Furri [facility] [address] DO Work Phone: 1(459) 279-746005-12-2023 10:14-0400Systolic blood dhrysymi963 mm[Hg] Domonique Mason [place] Work Phone: 1(493) [phone]-Pgaar [facility] DO Work Phone: 1(972) [phone] 10:1465591 1Keleuterio Mason [place] Work Phone: 1(785) [phone]-PkogvSt. Francis Medical CenterOstr[facility] 600 DO Work Phone: Comment on above:PHQ-9 [id number] 11:20-0400Body sisnei387.48 cmAelina Vargaschantelamandeep Other noSynchris [employer] Other 03-15-2023 11:20-0400Body mass index (BMI) [Ratio] 34.53 kg/m2Ramsey Steward Other [employer] Other 03-15-2023 11:20-0400Body ykvgpdqfdzx53.3 [degF]Ramsey Steward Other [employer] Other 03-15-2023 11:20-0400Body kufvma25.64 kgRamsey Steward Other [facility] [employer] Other 03-15-2023 11:20-0400Diastolic blood tlinnpdf39 mm[Hg] Ramsey Steward Other [place] [employer] Other 03-15-2023 11:20-0400Respiratory rate18 /minRamsey Steward Other [place] [employer] Other 03-15-2023 11:20-6387GeY7% (BldA) [Mass fraction]98 % Ramsey Steward Other [place] [employer] Other 03-15-2023 11:20-0400Systolic blood papdupjb886 mm[Hg] Ramsey Steward Other [place] [employer] Other 12-12-2022 10:58-0500Body .48 cmKim E [employer] Work Phone: [phone]-Ujcwz [place] [facility] 600 DO Work Phone: 1(367) 185-459612-12-2022 10:58-0500Body mass index (BMI) [Ratio] 35.48 kg/m2Kim E [employer] Work Phone: [phone]-Szrcl [place] [facility] 600 DO Work Phone: 1(796) [phone] 10:58-0500Body surface area Derived from formula1.89 m2Kim E [employer] Work Phone: [phone]-Ualki [place] [facility] 600 DO Work Phone: 1(430) 508-367712-12-2022 10:58-0500Body ayjucf79 kgKim E [employer] Work Phone: [phone]-Tmwxm [place] [facility] 600 DO Work Phone: 1(252) 462-501712-12-2022 10:58-0500Diastolic blood mm[Hg] Domonique [place] Work Phone: 1(767) [phone]-Avtuj [facility] [address] DO Work Phone: 1(421) 345-345512-12-2022 10:58-0500Heart rate68 /minKim Mason [place] Work Phone: [phone]-Zbthg [facility] [address] DO Work Phone: 1(761) 382-608212-12-2022 10:58-0500Systolic blood agjymktl340 mm[Hg] Domonique [place] Work Phone: 1(505) [phone]-Vssmn [facility] [address] DO Work Phone: 1(723) 460-788410-28-2022 10:36-0400Body iuxbld841.48 cmKiautumn [place] Work Phone: 1(987) [phone]-Jmmqm [facility] [address] DO Work Phone: 1(872) 508-871710-28-2022 10:36-0400Body mass index (BMI) [Ratio] 36.03 kg/m2Domonique [place] Work Phone: 1(773) [phone]-Zkjdl [facility] [address] DO Work Phone: 1(776) [phone] 10:36-0400Body surface area Derived from formula1.9 m2Kiautumn [place] Work Phone: 1(875) [phone]-Nshxn [facility] [address] DO Work Phone: 1(784) 320-783410-28-2022 10:36-0400Body lbqcux48.36 kgKim Mason [place] Work Phone: 1([phone]-Czyyl [facility] [address] DO Work Phone: 1(826) [phone] 10:36-0400Diastolic blood mm[Hg] Domonique [place] Work Phone: 1(722) [phone]-Kygce [facility] [address] DO Work Phone: 1(362) 450-976310-28-2022 10:36-0400Heart rate88 /minKim Mason [place] Work Phone: 1(457) [phone]-Cpjun [facility] [address] DO Work Phone: 1(264) 808-758510-28-2022 10:36-0400Systolic blood crdageil092 mm[Hg] Domonique Cuevas [place] Work Phone: 1(940) [phone]-[facility]aoReg[facility] 600 DO Work Phone: 1(614) 214-238807-20-2022 09:21-0400Body zxaoox258.48 cmKim Mason [place] Work Phone: 1(424) [phone]-XjqgwTracy Medical Centerwalk 600 DO Work Phone: 1(821) [phone] 09:21-0400Body mass index (BMI) [Ratio] 37.31 kg/m2Kiautumn Mason Liu Work Phone: 1(753) [phone]-BztqjGlacial Ridge Hospitalk 600 DO Work Phone: 1(968) [phone] 09:21-0400Body surface area Derived from formula1.93 m2Kiautumn Mason Liu Work Phone: 1(347) [phone]-LdgeaGlacial Ridge Hospitalk 600 DO Work Phone: 1(583) 132-462307-20-2022 09:21-0400Body tlykmq10.53 kgKim Mason [place] Work Phone: 1(680) [phone]-MzwchGlacial Ridge Hospitalk 600 DO Work Phone: 1(180) 190-777707-20-2022 09:21-0400Diastolic blood dunrgczt20 mm[Hg] Domonique Cuevas [place] Work Phone: 1(108) [phone]-QrfhsGlacial Ridge Hospitalk 600 DO Work Phone: 1(622) [phone] 09:21-0400Heart rate80 /minKim Mason Liu Work Phone: 1(469) [phone]-EqdjoRegency [facility] of [facility] 600 DO Work Phone: 1(162) [phone] 09:21-0400Systolic blood azcewzke832 mm[Hg] Domonique [place] Work Phone: mp864-0505HG-IbhzdAppleton [facility] 600 DO Work Phone: 1(867) 353-464406-14-2022 08:58-0400Diastolic blood lrpikgvn40 mm[Hg] Domonique [place] Work Phone: 1([phone]-Fmwfr [facility] 250 DO Work Phone: 1(174) 496-144206-14-2022 08:58-0400Systolic blood djzmozwy719 mm[Hg] Domonique [place] Work Phone: 1(493) [phone]-Xggts [facility] [address] DO Work Phone: 1(236) 327-373306-14-2022 08:58-0400Systolic blood yaxsczlw590 mm[Hg] Domonique [place] Work Phone: 1([phone]-Uqqml [facility] [address] DO Work Phone: 1(901) 832-102206-14-2022 08:40-0400Diastolic blood uvawkauv40 mm[Hg] Domonique [place] Work Phone: 1(528) [phone]-Wzjxi [facility] [address] DO Work Phone: 1(211) 524-199906-14-2022 08:40-0400Systolic blood cinspujz515 mm[Hg] Domonique [place] Work Phone: 1(416) [phone]-Zailo [facility] [address] DO Work Phone: 1(683) 837-558906-14-2022 08:36-0400Body wgltyr419.48 cmKim Mason [place] Work Phone: 1([phone]-Aotwr [facility] 250 DO Work Phone: 1(479) 396-519406-14-2022 08:36-0400Body mass index (BMI) [Ratio] 38.23 kg/m2Minaautumn [place] Work Phone: 1([phone]-Takri [facility] [address] DO Work Phone: 1(152) 418-404906-14-2022 08:36-0400Body surface area Derived from formula1.95 m2Kiautumn [place] Work Phone: 1(821) [phone]-Kugrk [facility] DO Work Phone: 1(425) 276-913506-14-2022 08:36-0400Body fdqxyi74.8 kgKim Mason [place] Work Phone: 1(870) [phone]-Cwmra [facility] [address] DO Work Phone: 1(571) 925-695306-14-2022 08:36-0400Diastolic blood mxoqlpmw93 mm[Hg] Domonique [place] Work Phone: mp436-5255OE-Ytomn [facility] [address] DO Work Phone: 1(872) 549-421806-14-2022 08:36-0400Heart rate56 /minKim Mason [place] Work Phone: mp316-3810ZO-Pbdwg [facility] [address] DO Work Phone: 1(102) 723-765906-14-2022 08:36-0400Systolic blood xodowzlr212 mm[Hg] Domonique [place] Work Phone: mp970-2422JK-Cgmfj [facility] [address] DO Work Phone: 1(896) 244-493606-14-2022 08:27-09987 1Keleuterio Cuevas [place] Work Phone: [phone]-Ftjsy [facility] DO Work Phone: Comment on above:PHQ-9 [id number] 13:35-0400Body xtedjy042.48 cmSjude Felipe Other [employer] Other 10-11-2021 13:35-0400Body mass index (BMI) [Ratio] 36.58 kg/f0Htpfdeupxtitus Felipe Other [employer] Other 10-11-2021 13:35-0400Body gfaqgrezyvm21.1 [degF] Oxana Felipe Other [employer] Other 10-11-2021 13:35-0400Body gtvuby47.72 kgSttitus Felipe Other [employer] Other 10-11-2021 13:35-0400Diastolic blood cyeqlssh62 mm[Hg] Oxana Felipe Other [employer] Other 10-11-2021 13:35-0400Respiratory rate18 /minSjude Felipe Other [employer] Other 10-11-2021 13:35-7548TvN9% (BldA) [Mass fraction]98 % Oxana Felipe Other [employer] Other 10-11-2021 13:35-0400Systolic blood agfmnili428 mm[Hg] Oxana Felipe Other [employer] Other Encounters Encounter DateEncounter TypeCare ProviderFacilityStart: 02-70-8610rleveydbxg DOMINIC A LEHMANNFacility:[facility]evueStart: 21-00-0119tnvjskjezqUmwnid E. Ross Facility:[facility]evueStart: 12-11-2024 End: 08-77-3920lqpbzwefsjOeozbs L. BobbsFacility:[facility] BellevueStart: 11-09-2024 ambulatorySawally RicheyFacility:[facility] BellevueStart: 10-31-2024 End: 77-60-8383khrdkpgqyfTMOQPH A LEHMANNFacility:[facility] BellevueStart: 10-30-2024 End: 71-26-3515dzskpcdbyiGKZFAC A LEHMANNFacility:[facility] BellevueStart: 06-06-2024 End: 15-53-7194fftbhhlqjcOsaku L ButlerFacility:Behavioral HealthStart: 05-30-2024 End: 09-37-6029keffxpqfedSwrtw L ButlerFacility:Behavioral HealthStart: 75-23-1871ibmsdzbmjnKaouy L ButlerFacility:Behavioral HealthStart: 05-16-2024 End: 67-16-7345jymhbrusoyOgjdl L ButlerFacility:Behavioral HealthStart: 05-09-2024 End: 27-47-9217aenrzxtkktZlxaq L ButlerFacility:Behavioral HealthStart: 05-76-1853dczbsnobokCiarb Gil ButlerFacility:Behavioral HealthStart: 04-25-2024 End: 98-71-8256ccemqnabjzKcmnx Gil ButlerFacility:Behavioral HealthStart: 89-22-5774hcdhmwaxlaNaviu Gil ButlerFacility:Behavioral HealthStart: 04-11-2024 End: 12-52-2495xnemmuclcxBxxwx L ButlerFacility:Behavioral HealthStart: 04-11-2024 End: 87-92-5860Hmmwlyv encounter procedureDenia [facility] start: 03-28-2024 End: 32-14-7485pndqzkydhdJquaex E. RossFacility:[facility] BellevueStart: 03-23-2024 End: 67-45-9590hnrmrxpmclWbukbp E. RossFacility:[facility]evueStart: 03-14-2024 End: 74-86-5628vzjjoxyjbuTpnikeljoMercy Health [facility] Work Phone: Start: 03-14-2024 End: 36-46-2246Yvfcmtj encounter procedureHay[facility] Nephrology [place] Work Phone: Start: 78-53-9792Tcg-patient / Non-visitHaywood Regional Medical Center [facility] Professional Co Work Phone: Start: 03-07-2024 End: 20-81-2685inzycgyeavWzkuv L ButlerFacility:Behavioral HealthStart: 03-07-2024 End: 23-82-6963Yeqjvsk encounter procedureDenia [facility] start: 02-22-2024 End: 71-53-8189grwmunffcyKkodj L ButlerFacility:Behavioral HealthStart: 02-22-2024 End: 07-19-0671Xatygjv encounter procedureDenia [facility] start: 02-15-2024 End: 66-20-2427ponqxqqaxoGnkfz L ButlerFacility:Behavioral HealthStart: 02-15-2024 End: 93-52-4497Cilzqao encounter procedureOrkun [facility] start: 02-08-2024 End: 43-05-4321dokzijrpfwRjewh L ButlerFacility:Behavioral HealthStart: 02-08-2024 End: 17-40-4439Febmbhp encounter procedureOrkun [facility] start: 90-81-4094qbecarlyvmVobki L Butler Facility:Behavioral HealthStart: 01-26-2024 End: 65-01-1840Swxxig outpatient visit [address] [place] [address] Work Phone: uh FirelandsComment on above:Coronary artery disease involving rappahannock coronary artery of rappahannock heart without angina pectoris; PVC's (premature ventricular contractions); Benign essential hypertension; 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 RossFacility:[facility] YfnueStart: 01-11-2024 End: 00-13-8463ymqyijhepqVigcs L ButlerFacility:Behavioral HealthStart: 01-11-2024 End: 76-99-4318Ovlnknw encounter procedureOrkun [facility] start: 01-04-2024 End: 40-43-1360cgtmubttdlFwkaj L ButlerFacility:Behavioral HealthStart: 01-04-2024 End: 83-26-4273Qcyfwdv encounter procedureOrkun [facility] start: 12-31-2023 End: 32-99-0850Kdt Drop Roula Richey [facility] Start: 12-31-2023 End: 58-25-5151dmipyjzzfhUvxcnx E. RossFacility:FTMCStart: 12-28-2023 End: 18-60-3126ycpdkhexetBkoxk L ButlerFacility:Behavioral HealthStart: 12-28-2023 End: 01-50-1552Jkwcdke encounter procedureDenia [facility] start: 12-23-2023 End: 56-94-7937ribghcvjexHEN Jodi L SchwabFacility:[facility])evueStart: 12-21-2023 End: 85-76-0732wrfubsdyjuThghs L ButlerFacility:Behavioral HealthStart: 12-21-2023 End: 62-79-6955Snjqrud encounter procedureDenia [facility] start: 37-52-1990bqxuvxttcfAwnjv L Butler Facility:Behavioral HealthStart: 11-24-2023 End: 71-49-6841rhutnhtxkaDruzz Gil ButlerFacility:Behavioral HealthStart: 11-24-2023 End: 54-67-1702Egrmriq encounter procedureDenia [facility] start: 11-10-2023 End: 50-01-8438cwedxcvqhnPcpqs Gil ArambulalerFacility:Behavioral HealthStart: 11-10-2023 End: 00-38-6290Ynqkksm encounter procedureDenia [facility] start: 10-13-2023 End: 53-83-6116elcefhngkfUkgxv L ButlerFacility:Behavioral HealthStart: 10-13-2023 End: 85-21-6965Uxmtmyr encounter procedureLakun [facility] start: 09-29-2023 End: 43-01-4661vzxtutubouSaqpp Gil ButlerFacility:Behavioral HealthStart: 09-29-2023 End: 21-79-8783Zepxlnc encounter procedureOrkun [facility]order[facility] start: 09-28-2023 End: 47-18-8601lcrmpaorrzUkidaxopqMercy Health [facility] Work Phone: Start: 09-28-2023 End: 53-84-7245Ekwzray encounter [facility] Nephrology Miguel A Work Phone: Start: 09-27-2023 End: 61-79-9743Fgt Drop Roula Richey [facility] Start: 09-27-2023 End: 22-59-8031prkpjrybesSgkcvb E. RossFacility:FTMCStart: 71-30-5157Riz-patient / Non-visitHaywood [facility] Professional Ms Work Phone: Start: 09-15-2023 End: 64-95-2262faechftsmzDkagg L ButlerFacility:Behavioral HealthStart: 09-15-2023 End: 78-25-9550Wnuriic encounter procedureDenia [facility] start: 09-01-2023 End: 40-65-3827pnejpeibkyVddhg Gil ButlerFacility:Behavioral HealthStart: 09-01-2023 End: 59-07-6807Wxtphmm encounter procedureDenia [facility] start: 74-43-8160ksjjqwlgzpCnksbp RossFacility:FT BellevueStart: 71-08-4343uenxfgplmoFmxiy L ButlerFacility:Behavioral Health Start: 07-20-2023 End: 88-33-7301bkgghwzhvfNCEYVS A LEHMANNFacility:[facility] evueStart: 95-89-9992ndqxrurvqoMpucm L ButlerFacility:Behavioral HealthStart: 06-29-2023 End: 42-91-5880cgudolekopNdcbzv E. RossFacility:[facility] BellevueStart: 06-09-2023 End: 72-53-5774ypanwixjjqRfgqx L ButlerFacility:Behavioral HealthStart: 06-09-2023 End: 87-49-3148Qyddlcn encounter procedureOrkun [facility] start: 05-26-2023 End: 29-64-1358awtfntgkosQbqga Gil ButlerFacility:Behavioral HealthStart: 05-26-2023 End: 01-73-5869Nwnddun encounter procedureCommunity [facility] start: 04-29-2023 End: 94-41-0688Xefuzk outpatient visit [address] [facility] [address] 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 ([facility]/HCC); BMI 32.0-32.9,adultStart: 04-29-2023 End: 36-81-1101fmoytqbyqfWOUTAPiedmont [facility] AmbulatoryStart: 04-27-2023 End: 31-57-3286ujfklahtriRiepk Gil ButlerFacility:Behavioral HealthStart: 04-27-2023 End: 44-58-7874Okimzjr encounter procedureCommunity [facility] start: 03-30-2023 End: 23-64-1574Cpw Drop Roula Richey [facility] Start: 03-30-2023 End: 09-87-9503Lcxmngf encounter procedureDenia [facility] start: 03-30-2023 End: 41-65-1672kndyjxuuzaPswiqn Pavel RicheyDonycility:FTMCStart: 03-09-2023 End: 44-16-1897Scswral encounter procedureDenia [facility] start: 03-02-2023 End: 81-52-8626wgfwgffdriIzgl Celsoamandeep Other [facility] [employer] Other Start: 26-42-7751Swsadh outpatient visit 25 minutes Ramsey StewardFPG Nephrology ClydeStart: 02-23-2023 End: 70-74-4605Vfukwly encounter procedureDenia [facility] start: 02-16-2023 End: 29-66-8210Umyqrro encounter procedureOrkun Coredro [facility] start: 02-09-2023 End: 10-00-5033Camvois encounter procedureOrkun Cordero [facility] start: 02-02-2023 End: 63-98-7447Qahdpzx encounter procedureOrkun [facility]order[facility] start: 01-12-2023 End: 63-85-0653Kyidfiy encounter procedureDenia [facility] start: 01-05-2023 End: 21-26-4969Rylcstn encounter procedureOrkun [facility]order[facility] start: 12-29-2022 End: 28-21-6562Ohmbcyz encounter procedureLakun L [facility] start: 12-22-2022 End: 68-33-8165Isokfqw encounter procedureSpringfield Gil [facility] start: 88-68-3836Jc RenewalKim E [place] Work Phone: [phone]-TdgazJohnson [facility] 600 DO Work Phone: Start: 10-05-2022 End: 67-50-8563Gxd Drop offSfito Richey [facility] Start: 09-15-2022 End: 13-37-9481hsacyvmbooQkwf Bakchantels Other noSynchris [employer] Other Start: 83-98-9313Kqlcfg outpatient visit 15 minutes Azyecenia Ingram Nephrology ClydeStart: 07-07-2022 End: 66-70-8478ppawcradyqEFAMYW ELI ROSSFacility:U4Esfig: 07-07-2022 End: 44-59-4072Yoq Drop offKIM E HAT[place] [facility] Start: 18-66-0124Bxmjaq outpatient visit 25 minutesKim E [place] Work Phone: [phone]-RdrjhJohnson [facility] 600 DO Work Phone: Start: 59-67-9710jkvrqzrhikHy. Kim Edward Knight Facility:[id number]: 06-01-2022 End: 10-64-7604ebtjdgkqsfWzzu Bakamalia Other [facility] [employer] Other Start: 04-04-0189Ipeixpums encounterAzyecenia Ingram NephrologyStart: 05-26-2022 End: 24-34-5562qxpslkqewnJQ KIM E KNIGHT .Facility:X8Lkvli: 04-22-2022 End: 83-17-1407tpbyzewtizCwbj Bakhous Other Nort [employer] Other Start: 89-81-8418Srvkze outpatient new 30 minutesAziz CelsosFPG NephrologyStart: 04-06-2022 End: 09-40-5649zmevmvwligHX DOMONIQUE H[place] .Facility:Y2Juqsj: 54-20-1732rvkfexmlno Dr. Domonique HatfieldFacility:[id number]: 68-41-4164Sh RenewalKim E [place] Work Phone: [phone]-UurulPerham Health Hospital 250 DO Work Phone: Start: 67-45-5086Kkhnobb encounter procedureKim E [place] Work Phone: 1([phone]) [phone]-HiquwPerham Health Hospital 250 DO Work Phone: Start: 30-84-9506dlsxvhezwbJs. Kim Edward Knight Facility:[id number]: 08-70-1941PAWLVZlf E [place] Work Phone: 1([phone]) [phone]-BbfbmPerham Health Hospital 250 DO Work Phone: Start: 70-80-2095ahckwawathQb. Kim Edward Knight Facility:[id number]: 64-44-7001Cwlsbr outpatient visit 25 minutesKim E [place] Work Phone: 1(490) [phone]-YvaiwPerham Health Hospital 250 DO Work Phone: Start: 31-73-4085Kulylgo encounter procedureKim E [place] Work Phone: 1([phone]-PgmswCanby Medical [facility] 600 DO Work Phone: Start: 01-07-2022 End: 34-44-4789tvwmeinebbLL KIM E KNIGHT .Facility:Q8Wymou: 00-14-1509Ehrlel outpatient visit 25 minutesKim E [place] Work Phone: [phone]) [phone]-ZueujCanby Medical Center 600 DO Work Phone: Start: 63-88-3388pvuuzuwxbxPb. Domonique [place] Facility:[id number]: 12-01-2021 End: 22-56-3845qkidixdrmtAR DOMONIQUE HAT[place] .Facility:O9Jipsc: 43-32-4691Xk Renewal Domonique [place] Work Phone: [phone]) [phone]-Cvsmu [facility] 250 DO Work Phone: Start: 04-80-0924lntdjtrfcfDl. Domonique [place] Facility:[id number]: 55-80-6459Iuyvtdk encounter procedureKim E [place] Work Phone: [phone]-JcdjgCanby Medical Center 600 DO Work Phone: Start: 40-59-2548cftrmpgtyxPm. Domonique [place] Facility:[id number]: 10-01-2021 End: 01-45-4860cdytziaskoZA DOMONIQUE HATFIELD .Facility:G0Gvuza: 79-66-8698Uyfmpk outpatient visit 25 minutesDomonique [place] Work Phone: [phone]-KxccqCanby Medical Center 600 DO Work Phone: Start: 84-89-5044ujkyhprjzqHh. Domonique [place] Facility:[id number]: 08-09-2021 End: 54-99-1995znunpgeyafGQ DOMONIQUE HAT[place] .Facility:W0Dkrgd: 08-06-2021 End: 11-19-5716ulvstwgizbGI DOMONIQUE HATFIELD .Facility:D1Zmnkd: 81-75-5800Tjqivie encounter procedureDomonique Gonzalezight Work Phone: [phone]-PcqtwPerham Health Hospital 250 DO Work Phone: Start: 42-20-7198odjxdhabfuCu. Domonique [place] Facility:[id number]: 06-30-2021 End: 27-76-5620Pbxibsqapw and management of inpatientGENERIC GRI[facility] Community Hospitaltart: 34-75-6038Ezupehvcm encounterDomonique [place] Work Phone: 1([phone]-Avxcm [facility] 250 DO Work Phone: Start: 11-18-2020(URG) Urgent Care VisitStephanie BreaultFPG Urgent Care Miguel A Procedures DateProcedureProcedure DetailPerforming ClinicianStart: 02-22-2023 End: 50-10-9311Mqdyqrv of placement of stent in anterior descending branch of left coronary arteryStatus post insertion of drug-eluting stent into left anterior descending (LAD) arteryGary Chávez PROVIDER NETWORK [employer] Work Phone: Start: 59-10-2402Wcorwjepfis [Units/volume] in Serum or PlasmaGary Chávez PROVIDER NETWORK [employer] Work Phone: Start: 15-73-6596JeigrgtjovrSytzp Smith PROVIDER NETWORK [employer] Work Phone: AppendectomySwagbucks Work Phone: AppendectomyKIM [employer] ArthroscopyKIPaddle ([employer]) Comment on above:left kneeBilateral cataracts (disorder)DOMONIQUE In[facility] Cardiac catheterizationKiWapi Work Phone: Cataract surgeryKiWapi Work Phone: CholecystectomyKim Vivacta Work Phone: CholecystectomyKIM [employer] History of placement of stent in anterior descending branch of left coronary arteryStatus post insertion of drug-eluting stent into left anterior descending (LAD) arteryKim E Image[employer] Work Phone: HysterectomyKim E [employer] Work Phone: LaparoscopyKim E [employer] Work Phone: Lumpectomy of breastKim Vivacta Work Phone: Operation on bladderKim Vivacta Work Phone: Operative procedure on kneeKim E [employer] Work Phone: Tonsillectomy and adenoidectomyKim E [place] Work Phone: Tonsillectomy and adenoidectomyKIM [place]AT[place] Total colonoscopyKim E Liu Work Phone: Plan of Treatment DateCare ActivityDetailAuthorStart: 01-25-2025 End: 59-86-9325Iuexsrf encounter pchinqkev48/18/2025 10:00 AM EST Office Visit [address] [address] Zak Hancock, DO [address] [place] [address] 2, [address] [address] [facility]: 01-26[facility]2024 End: 11-12-3891Rbbdd 1996 panel - Serum or PlasmaLipid Panel Lab Routine Coronary artery disease involving [place] coronary artery of [place] heart without angina pectoris Mixed hyperlipidemia Expected: 01/26/2024 (Approximate), Expires: 01/25/2025[facility] Work Phone: Comment on above:Expected: 01/26/2024 (Approximate), Expires: 01/25/2025Start: 01-26-2024 End: 90-25-2022Gggjvbt encounter quafqfezi06/18/2024 10:00 AM EST Office Visit [address] [address] Zak Hancock, DO [address] [place] [address] 2, [address] [address] [facility] CenterStpat[facility]: [id number] Vaccine ( season)COVID-19 Vaccine ( season)[facility]: [id number] High Risk: (Elderly (60+) or Population) (1 - 1-dose 75+ series)RSV High Risk: (Elderly (60+) or Population) (1 - 1-dose 75+ series)[facility]: [id number], Provider: Zak Nguyen, Status: Pen, Time: 10:20 AMFUV, Provider: Zak Nguyen, Status: Pen, Time: 10:20 AM-[facility] [address] DO Work Phone: Start: [id number] stimulating hormone measurementTSH LevelMercer County Community Hospital: [id number], Provider: Zak Nguyen, Status: Pen, Time: 10:10 AMFUV, Provider: Zak Nguyen, Status: Pen, Time: 10:10 AMMP-[facility] DO Work Phone: Start: [id number], Provider: Zak Nguyen, Status: Pen, Time: 10:40 AMFUV, Provider: Zak Nguyen, Status: Pen, Time: 10:40 AMMP-[facility] DO Work Phone: Start: [id number], Provider: Zak Nguyen, Status: Pen, Time: 10:20 AMFUV, Provider: Zak Nguyen, Status: Pen, Time: 10:20 AM-[facility] 600 DO Work Phone: Start: 89-55-6818PMNHAL 48, Provider: SHAUN TADEO MATERIAL EXPEDITOR 1,[id number], Status: Pen, Time: 1:00 PMHOLTER 48, Provider: SHAUN TADOE MATERIAL EXPEDITOR 1,[id number], Status: Pen, Time: 1:00 [facility] DO Work Phone: Start: 44-99-2337Gqcrnpdtfk A1c measurementDiabetes: Hemoglobin Z6NDvprqmygpwMercer [facility]: 21-54-3962DQC, Provider: Zak Nguyen, Status: Pen, Time: 9:20 AMFUV, Provider: Zak Nguyen, Status: Pen, Time: 9:20 AMMP-[facility] Work Phone: Start: 13-08-4538JJT, Provider: Zak Nguyen, Status: Pen, Time: 9:15 AMFUV, Provider: Zak Nguyen, Status: Pen, Time: 9:15 AM[facility] Work Phone: Start: 35-49-0663Isffzwfba for malignant neoplasm of breastMammogramUnRegional Medical Center: 54-84-7850Ahmslixnwcwp Vaccine: 65+ Years (2 - PCV)Pneumococcal Vaccine: 65+ Years (2 - PCV)[facility]: 39-54-4715Ijlsejgzbxyj Vaccine: 65+ Years (2 of 2 - PCV)Pneumococcal Vaccine: 65+ Years (2 of 2 - PCV)[facility]: 33-33-8053Lvfvuk Vaccines (1 of 2)Zoster Vaccines (1 of 2) [facility]: 97-62-6374CVkQ/Tdap/Td Vaccines (1 - Tdap)DTaP/Tdap/Td Vaccines (1 - Tdap)[facility]: 70-12-0850Gckqbtsmc C screeningHepatitis C ScreeningUnRegional Medical Center: 56-87-3038Avbzlgpg foot examinationDiabetes: Foot ExamUnRegional Medical Center: 41-91-5180Ponzkuxr screeningDiabetes: Retinopathy ScreeningUnRegional Medical Center: 19-25-1780Dlekvolheivvzs vitamin b-12Vitamin B-12UnRegional Medical Center: 1950 Diabetes: Celiac Disease ScreeningDiabetes: Celiac Disease ScreeningMercer County Community Hospital: 66-89-9537Ngqbm panelLipid PanelUnRegional Medical Center: 05-15-1949Medicare Annual Wellness VisitMedicare Annual Wellness Visit (AWV)[facility]: 1950 Screening for malignant neoplasm of colonUnRegional Medical Center: 61-48-6885Vereebetk for osteoporosisBone Density ScanUnUniversity Hospitals Portage Medical CenterRenal function 2000 panel - Serum or PlasmaAdventHealth Dade City Immunizations Immunization DateImmunizationNotesCare GhlrqrdlLktlavqb64-58-2662tlidviskw, high dose seasonal, preservative-free; Translations: [Fluzone High Dose Vaccine] Denia [facility] FacilityivonneMercy Hospital11-13-2023 influenza, high dose seasonal, preservative-freeDenia [facility]ue12-10-2021Pfizer-BioNTech COVID-19 Vacc 30 MCG/0.3ML Intramuscular SuspensionKim E Hatfield Work Phone: [phone]-TypfgUniversity Hospitals Beachwood Medical Centerue12-07-2021 influenza virus vaccine, unspecified formulationSfito Richey 802-9256Pmvwmi-RwoqzUniversity Hospitals Beachwood Medical Centerue12-07-2021 Seasonal, quadrivalent, recombinant, injectable influenza vaccine, preservative freeKim E Hatfield Work Phone: [phone]-OdrviPerham Health Hospital 250 DO Work Phone: [phone]-ZpjVFmex COVID-19 Vacc 30 MCG/0.3ML Intramuscular SuspensionKim E Hatfield Work Phone: [phone]-YxgdvUniversity Hospitals Beachwood Medical CenterueComment on above: Result Comment: 2022-09-24: LDI1506-20-7480Ptbhfc-CcwDYmim COVID-19 Vacc 30 MCG/0.3ML Intramuscular SuspensionKim E Hatfield Work Phone: [phone]-XvrjtMercy Health Anderson Hospital BellevueComment on above: Result Comment: 2022-09-24: [id number] vaccine, quadrivalent, high-dose, preservative free, age 65y+ (FLUZONE)Gary Chávez APRN-YANY Work Phone: [facility] Work Phone: [phone]w virus vaccine, unspecified formulationSfito Richey [phone]-MfbroUniversity Hospitals Beachwood Medical Centerue10-17-2020 influenza, high dose seasonal, preservative-freeKiautumn Hatfield Work Phone: [facility]03-12-2020KENALOG - 10 mgxOana Felipe Other noeSpace Other [id number] per 15 mgStephanbryn Felipe Other nort Airseed Other [id number] - 10 mgSttitus Felipe Other noeSpace Other [id number] polysaccharide vaccine, 23 valentDomonique Hatfield Work Phone: [phone]-NxfzwUniversity Hospitals Beachwood Medical Centerue12-02-2018Toradol per 15 mgSttitus Felipe Other noeSpace Other Payers DatePayer CategoryPayerPolicy [id number] HEALTHCARE MEDICARE UNITED HEALTHCARE MEDICARE [id number] 2022-Present [address] [place], [place] [id number] 2023Medicare (Managed Care) UNITED HEALTHCARE MEDICARE [id number] [id number] 43-29-4186Vcpxaxz Health [id number] 2.16.840.1.228718.3.579.2.70250-28-5869Afnrxlu453823847 2.16.840.1.529445.3.579.2.72972-11-7827Cgnhdto541769222 2.16.840.1.825700.3.579.2.64722-20-9935Fitzjmp358975178 2.16.840.1.461815.3.579.2.28408-57-4536Fqqcpnk626541348 2.16.840.1.615586.3.579.2.92487-37-7100Jjlsdpz889683163 2.16840.1.597630.3.579.2.94431-98-1188Pqibldm430248051 2.16.840.1.713767.3.579.2.76131-98-7201Sswypvj385935421 2.16.840.1.363384.3.579.2.47988-18-2347Hrdabvg114547909 2.16.840.1.239536.3.579.2.19985-01-1068Ctchefg362055625 2.16.840.1.021987.3.579.2.71354-12-7887Orrdcje7895474 2.16.840.1.155642.3.579.2.63729-99-2811Pynahww1019145 2.16.840.1.037060.3.579.2.48992-05-8908Mrtsatb0449884 2.16.840.1.587779.3.579.2.71365-14-4536Hqqjvhg2874342 2.16.840.1.455499.3.579.2.97182-74-9535Gocrnqt2413386 2.16.840.1.583300.3.579.2.83252-63-3302Hvthmwy4135706 2.16.840.1.352307.3.579.2.20768-48-9623Adonezg0553501 2.16.840.1.352242.3.579.2.39655-01-9810Etrwsvd6001636 2.16.840.1.073093.3.579.2.54154-92-5800Ssjtyor78923458 2.16.840.1.130660.3.579.2.28590-28-4746Nszwhsh02903378 2.16.840.1.762548.3.579.2.09708-95-1701Fbswyso12789084 2.16.840.1.714922.3.579.2.05581-01-1944Xukusqc48483329 2.16.840.1.588908.3.579.2.01447-79-1374Wksuyoc34364992 2.16.840.1.285646.3.579.2.62334-64-3497Lfjxnur67885532 2.16.840.1.740990.3.579.2.56801-80-4719Zatlsoo53721355 2.16.840.1.826978.3.579.2.34224-10-4612Dntbowf60647678 2.16.840.1.953329.3.579.2.29762-07-8576Uxeslmy95226918 2.16.840.1.390522.3.579.2.89694-21-6416Xxtalst963313129 2.16.840.1.350410.3.579.2.338676-71-0386Oshisgy39766891 2.16.840.1.562200.3.579.2.525805-11-8263Nemdkzd03712446 2.16.840.1.790566.3.579.2.45773-55-9894Wreokap36624469 2.16.840.1.538493.3.579.2.87712-52-8586Spgobfk99700489 2.16.840.1.957402.3.579.2.22513-91-0684Oylqjxu30228258 2.16.840.1.440840.3.579.2.18036-60-8948Dsnrkim85550918 2.840.1.144731.3.579.2.68013-74-2969Wpzjevz11302896 2.840.1.638706.3.579.2.26307-48-2701Iajudmt65021693 2.840.1.219455.3.579.2.48763-76-6905Tnpmnvi09719459 2.16.840.1.653831.3.579.2.09276-87-0948Xhyyfch02351436 2.840.1.702931.3.579.2.19822-18-9052Vduwlzi81819370 2.840.1.919691.3.579.2.06498-84-3843Jgrvthu15112254 2.16840.1.933518.3.579.2.01491-31-7386Khgglrb52130510 2.16.840.1.276165.3.579.2.33904-58-2514Jynpafz07257159 2.16.840.1.371840.3.579.2.77278-49-2671Qirifnp74392116 2.16840.1.044348.3.579.2.20844-15-0164Tsjtgtj67216279 2.16.840.1.506314.3.579.2.19232-09-2466Kwzhvle67672820 2.16.840.1.912792.3.579.2.17041-12-9030Swzgptm83409326 2.16.840.1.346188.3.579.2.39171-36-3185Dddaukr51923871 2.16.840.1.449171.3.579.2.59855-38-8034Braohdu80168138 2.16.840.1.555225.3.579.2.76325-56-0299Lgftlgm36314276 2.16.840.1.873748.3.579.2.44058-98-2091Bivrqsx85183459 2.16.840.1.085142.3.579.2.25941-62-5088Dbwdagt15080501 2.16.840.1.966350.3.579.2.75132-56-9215Moqgnei37519290 2.16.840.1.912416.3.579.2.16278-76-7061Extgmmf30362277 2.16.840.1.447843.3.579.2.01831-85-2191Gepzqaa04517894 2.16.840.1.352816.3.579.2.23723-89-4259Qwsigkz96198754 2.16.840.1.847633.3.579.2.75717-89-6528Cpnpaiw02275504 2.16.840.1.577986.3.579.2.54471-26-5252Lqbyoml29844287 2.16.840.1.488057.3.579.2.15289-49-7872Lkfwpoy94210657 2.16.840.1.830775.3.579.2.02667-14-3357Ippydjq76594148 2.16.840.1.384799.3.579.2.74378-34-1140Xahdwuw02799754 2.16.840.1.441635.3.579.2.24794-76-1085Ltdsotj14867009 2.16.840.1.736591.3.579.2.00551-24-1117Hvwznve55188265 2.16.840.1.194652.3.579.2.30059-08-0529Mmuzdcm94809568 2.16.840.1.020713.3.579.2.54939-89-9676Vgogbsi61373609 2.16.840.1.161330.3.579.2.05683-64-4673Kpjbywg27167732 2.16.840.1.889584.3.579.2.85735-56-9421Wabzzld11165362 2.16.840.1.691047.3.579.2.59027-40-5127Fwtkfpf15412271 2.16.840.1.351549.3.579.2.50965-46-8939Kkeghhx25042673 2.16.840.1.318287.3.579.2.79986-78-6312Tghvroa68415414 2.16.840.1.182653.3.579.2.65600-19-7081Jbkphie18235311 2.16.840.1.980832.3.579.2.13568-45-2324Mqcqizu64655546 2.16.840.1.621585.3.579.2.92477-24-8127Lzckoqg70685494 2.16.840.1.382450.3.579.2.90941-33-0530Bbqjvva10519476 2.16.840.1.830408.3.579.2.84984-56-9507Qzrawgs66353275 2..840.1.540693.3.579.2.727MedicareMEBVT3DV 2.840.1.819005.19Medicare [id number] 2.840.1.433134.19Private Health InsuranceAetMercy Hospital [facility] PFFSMEBNLXGR [id number]-gibDify Pay [id number]savEgxdbe BC/[id number]-[id number] Social History DateTypeDetailFacilityStart: 06-19-2022 End: 25-17-9910Kacwmnot useCaffeine useUnUniversity Hospitals Portage Medical CenterComment on above:Occas coffee;Start: 06-19-2022 End: 57-55-6289Kbw [facility] 07-07[facility]2022 End: 40-27-8415Urvyvao smoking statusNever smoked tobacco (finding)[facility] CenterueComment on above:never a smokerdenies use.Tobacco smoking statusNeverUniversity Hospitals Beachwood Medical CenterueComment on above:never a smokerdenies use.Start: 08-00-1504Kdifjqv use and exposureSmokeless tobacco non-userUnUniversity Hospitals Portage Medical Center Work Phone: Start: 04-29-2023 End: 34-45-1186Ihknlco intakeLifetime non-drinker (finding)[facility] Work Phone: Start: 32-14-5250Jjd Assigned At BirthNot on file [facility] Work Phone: Start: 04-19-2023 End: 99-36-4313Vgvukjjp to SARS-CoV-2 (event)Not [facility] HospitalStart: 21-26-4161Ltp [facility] Hospitaltart: 37-99-0825YdrVjqfsv (finding)[facility] Medical Equipment Procedure CodeEquipment CodeEquipment Original TextEquipment IdentifierDates Drug-eluting coronary artery stent, wuq-xbjbatvaqalzn-ifnjnyx-coated ()[id number] FDAStart: 11-27-2019 Functional Status WpjnOlergkbrcbHlzabqYzrxztbr28-77-2594CNV-4NBB6SDKRLH Mild (5-9)[facility] 250 DO Work Phone: Clinical Notes 11-18-2020 to 10-31-2024 Note Date & GpgyDgtqAuyzhzsu57-36-2379 NoteNurse Consultation Note Reason for Visit Pt presents today to drop off urine specimen for Microalbumin level Medications amlodipine, 5 mg, Oral, Daily aspirin 81 mg Oral EC Tab, 81 mg= 1 tab(s), Oral, Daily buPROPion 300 mg/24 hours ER Tab, 300 mg= 1 tab(s), Oral, Daily, 1 refills buPROPion 300 mg/24 hours ER Tab, 300 mg= 1 tab(s), Oral, Daily Freestyle Sam 2 Flash Glucose Monitoring 14 Day System (Sensor), See Instructions, 3 refills HumaLOG KwikPen 100 units/mL injectable solution, See Instructions Januvia 100 mg Tab, See Instructions, 3 refills Lantus Solostar Pen 100 units/mL subcutaneous solution, See Instructions latanoprost Opth 0.005% Gunjan, 1 drop(s) losartan 100 mg Tab, See Instructions, 3 refills NitroStat 0.4 mg Tab, See Instructions Pen Schneider, See Instructions, 3 refills rosuvastatin 20 mg Tab, 20 mg= 1 tab(s), Oral, Daily traZODONE 50 mg Tab, See Instructions, 5 refills Allergies No Known Medication Allergies Immunizations Vaccine Date Status Comments influenza virus vaccine, inactivated 12/23/2023 Given influenza virus vaccine, inactivated 12/21/2022 Given SARS-CoV-2 (COVID-19) mRNA BNT-162b2 vax 01/17/2021 Recorded influenza virus vaccine, inactivated 01/14/2021 Recorded SARS-CoV-2 (COVID-19) mRNA BNT-162b2 vax 04/22/2020 Recorded 2022-09-24: TPV70 SARS-CoV-2 (COVID-19) mRNA BNT-162b2 vax 04/01/2020 Recorded 2022-09-24: TPV70 influenza virus vaccine, inactivated 11/27/2019 Recorded pneumococcal 23-valent vaccine 11/08/2018 RecordedS[facility]-2024 NotePatient Education Nephrology Chronic Kidney Disease, Adult Chronic kidney disease (CKD) occurs when the kidneys are slowly and permanently damaged over a longperiod of time. The kidneys are a pair of organs that do many important jobs in the body, including: ??? Removing waste and extra fluid from the blood to make urine. ??? Making hormones that maintain the amount of fluid in tissues and blood vessels. ??? Maintaining the right amount of fluids and chemicals in the body. A small amount of kidney damage may not cause problems, but a large amount of damage may make it hard or impossible for the kidneys to work right. Steps must be taken to slow kidney damage or to stopit from getting worse. If steps are not taken, the kidneys may stop working permanently (end-stage renal disease, or ESRD). Most of the time, CKD does not go away, but it can often be controlled. People who have CKD are usually able to live full lives. What are the causes? The most common causes of this condition are diabetes and high blood pressure (hypertension). Other causes include: ??? Cardiovascular diseases. These affect the heart and blood vessels. ??? Kidney diseases. These include: ? Glomerulonephritis, or inflammation of the tiny filters in the kidneys. ? Interstitial nephritis. This is swelling of the small tubes of the kidneys and of the surroundingstructures. ? Polycystic kidney disease, in which clusters of fluid-filled sacs form within the kidneys. ? Renal vascular disease. This includes disorders that affect the arteries and veins of the kidneys. ??? Diseases that affect the body's defense system (immune system). ??? A problem with urine flow. This may be caused by: ? Kidney stones. ? Cancer. ? An enlarged prostate, in males. ??? A kidney infection or urinary tract infection (UTI) that keeps coming back. ??? Vasculitis. This is swelling or inflammation of the blood vessels. What increases the risk? Your chances of having kidney disease increase with age. The following factors may make you more likely to develop this condition: ??? A family history of kidney disease or kidney failure. Kidney failure means the kidneys can no longer work right. ??? Certain genetic diseases. ??? Taking medicines often that are damaging to the kidneys. ??? Being around or being in contact with toxic substances. ??? Obesity. ??? A history of tobacco use. What are the signs or symptoms? Symptoms of this condition include: ??? Feeling very tired (lethargic) and having less energy. ??? Swelling, or edema, of the face, legs, ankles, or feet. ??? Nausea or vomiting, or loss of appetite. ??? Confusion or trouble concentrating. ??? Muscle twitches and cramps, especially in the legs. ??? Dry, itchy skin. ??? A metallic taste in the mouth. ??? Producing less urine, or producing more urine (especially at night). ??? Shortness of breath. ??? Trouble sleeping. CKD may also result in not having enough red blood cells or hemoglobin in the blood (anemia) or having weak bones (bone disease). Symptoms develop slowly and may not be obvious until the kidney damage becomes severe. It is possible to have kidney disease for years without having symptoms. How is this diagnosed? This condition may be diagnosed based on: ??? Blood tests. ??? Urine tests. ??? Imaging tests, such as an ultrasound or a CT scan. ??? A kidney biopsy. This involves removing a sample of kidney tissue to be looked at under a microscope. Results from these tests will help to determine how serious the CKD is. How is this treated? There is no cure for most cases of this condition, but treatment usually relieves symptoms and prevents or slows the worsening of the disease. Treatment may include: ??? Diet changes, which may require you to avoid alcohol and foods that are high in salt, potassium, phosphorous, and protein. ??? Medicines. These may: ? Lower blood pressure. ? Control blood sugar (glucose). ? Relieve anemia. ? Relieve swelling. ? Protect your bones. ? Improve the balance of salts and minerals in your blood (electrolytes). ??? Dialysis, which is a type of treatment that removes toxic waste from the body. It may be neededif you have kidney failure. ??? Managing any other conditions that are causing your CKD or making it worse. Follow these instructions at home: Medicines ??? Take ggwe-zhj-uzeosyf and prescription medicines only as told by your health care provider. Theamount of some medicines that you take may need to be changed. ??? Do not take any new medicines unless approved by your health care provider. Many medicines can make kidney damage worse. ??? Do not take any vitamin and mineral supplements unless approved by your health care provider. Many nutritional supplements can make kidney damage worse. Lifestyle ??? Do not use any products that contain nicotine or tobac (more content not included)...[facility]02-18-2025 NotePatient Education Nutrition BMI for Adults Body mass [...] This can help you reach a healthy weight.BMI screening can be done again to see if these changes are working. How is BMI calculated? Your height and weight are measured. The BMI is found from those numbers. This can be done with U.S. or metric measurements. Note that charts and online BMI calculators are available to help you findyour BMI quickly and easily without doing these [...] measurement is 1.75 m x 1.75 m, whichequals 3.1 meters squared. 3. Divide the number of kilograms (your weight) by the meters squared number. In this example: 70 ?3.1 = 22.6. This is your BMI. What [...] for Disease Control and Prevention: cdc.gov ??? [place] Heart Association: heart.org ??? National Heart, Lung, and Blood [place]: nhlbi.nih.gov This information is not intended to replace advice given to you by your health care provider. Make sure you discuss any questions you have with your health care provider. Document Revised: 10/15/2022 Document Reviewed: 10/08/2022 [employer] Patient Education ? 2023 [employer]ensus.[facility] 01-26-2024 History of Present illness Narrative* Zak Hancock, DO - 01/26/2024 10:00 AM EST Subjective Jade Mcnulty is a 73 y.o. female Chief Complaint Follow-up 73-year-old female returns for follow-up, former patient of Dr. Nguyen's now I am assuming her cardiovascular management following his intermediate. She has no cardiovascular symptoms or hospitalizations, [...] Rfl: Assessment/Plan 1. Coronary artery disease involving rappahannock coronary artery of rappahannock heart without angina pectorisFollow Up In Cardiology 2. PVC's (premature ventricular contractions) 3. Benign essential hypertension 4. 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) 6. Mixed hyperlipidemia 7. BMI 32.0-32.9,adult 8. Never smoked tobacco Scribe Attestation By signing my name below, Mayra Rosita Travis LPN , Scribe attest that this documentation has been prepared under the direction and in the presence of Diego Hancock DO. Provider Attestation - Scribe documentation All medical record entries made by the Scribe were at my direction and personally dictated by me. Ihave reviewed the chart and agree that the record accurately reflects my personal performance of the history, physical exam, discussion and plan. [facility]Core[facility] Work Phone: 1(424) 726-332112-18-2024 Instructions* Patient Instructions* Rosita Nunn LPN - 01/26/2024 10:00 AM [...] Provided instructions on exercise. documented in this encounterCorey Hospital Work Phone: 1(763) 387-809812-16-2024 NoteInterdisciplinary Note - [employer] Consult for positive depression screen received. Per chart notes, patient is current with counseling for these concerns. SW will remain available.[facility]11-22-2024 NoteNurse Consultation Note Reason for Visit Pt presents today for [...] NitroStat 0.4 mg Tab, See Instructions Pen Schneider, See Instructions, 3 refills rosuvastatin 20 mg [...] inactivated 11/27/2019 Recorded pneumococcal 23-valent vaccine 11/08/2018 RecordedS[facility] 12-23-2023 NotePatient Education Correction Insulin Correction insulin, also called [...] amount of insulin that you give yourself. [place] every time you check blood glucose or [...] changing your diet, or holidays. ? New evnp-poo-rnmoaax or prescription medicines. ? Illness, stress, or [...] be used to lower your blood glucose ifit is too high. It brings your glucose [...] you by your he (more content not included)...[facility]08-19-2024 NoteNurse Consultation Note Physical Exam Vitals & Measurements T: 36.8 [...] NitroStat 0.4 mg Tab, See Instructions Pen Schneider, See Instructions, 3 refills Pen Schneider, See Instructions, 1 refills rosuvastatin 20 mg [...] inactivated 11/27/2019 Recorded pneumococcal 23-valent vaccine 11/08/2018 RecordedS[facility] 09-27-2023 NotePatient Education Cardiovascular Hypertension, Adult High blood pressure [...] are some conditions that result in high bloodpressure. What increases the risk? Certain factors may make you more likely to develop high blood pressure. Some of these risk factorsare under your control, including: ? Smoking. ? [...] on the floor. The cuff of the bloodpressure monitor will be placed directly against the [...] of wine (148 mL), (more content not included)...[facility]03-21-2024 Evaluation + Plan note* Assessment & Plan Note - ANA Mac - 04/29/2023 2:24 PM EDT Associated Problem(s): BMI 32.0-32.9,adult She is actively making lifestyle changes Weight is down 11 pounds Encouraged to continue [facility] Work Phone: 1(963) 356-678803-21-2024 Evaluation + Plan note* Assessment & Plan Note - ANA Mac - 04/29/2023 2:24 PM EDTAssociated Problem(s): Diabetes ([facility] Maintained on ARB/statin Reports most recent hemoglobin A1c 6.4 [facility] Work Phone: 1(754) 197-745703-21-2024 Evaluation + Plan note* Assessment & Plan Note - ANA Mac - 04/29/2023 2:24 PM EDTAssociated Problem(s): PVC's (premature ventricular contractions) CAD was initially identified during workup for PVC burden. February 2022 Holter 8.4% PVC burden Denies dizziness lightheadedness, no prior syncope. [facility] Work Phone: 1(473) 690-970603-21-2024 Miscellaneous Notes* Assessment & Plan Note - ANA Mac - 04/29/2023 2:24 PM EDTAssociated Problem(s): BMI 32.0-32.9,adult She is actively making lifestyle changes Weight is down 11 pounds Encouraged to continue * Assessment & Plan Note - ANA Mac - 04/29/2023 2:24 PM EDT Associated Problem(s): Diabetes ([facility]) Maintained on ARB/statin Reports most recent hemoglobin A1c 6.4 * Assessment & Plan Note - ANA Mac - 04/29/2023 2:24 PM EDT Associated Problem(s): PVC's (premature ventricular contractions) CAD was initially identified during workup for PVC burden. February 2022 Holter 8.4% PVC burden Denies dizziness lightheadedness, no prior syncope. * Assessment & Plan Note - ANA Mac - 04/29/2023 2:23 PM EDT Associated Problem(s): Hyperlipidemia High intensity statin Annual labs through PCP * Assessment & Plan Note - ANA Mac - 04/29/2023 2:23 PM EDT Associated Problem(s): Coronary artery disease involving rappahannock coronary artery of rappahannock heart without angina pectoris No ACS admit or acute CT. CAD was identified on testing for high PVC burden. November 2019 mLAD PCI/Mauro 2.5/22mm (+IFR) Circumflex negative RCA negative LVEF 65% May 2021 MPI no ischemia * Assessment & Plan Note - ANA Mac - 04/29/2023 2:22 PM EDT Associated Problem(s): Benign essential hypertension Optimal in office documented in this encounterCorey Hospital Work Phone: 1(817) 987-744003-21-2024 Evaluation + Plan note* Assessment & Plan Note - ANA Mac - 04/29/2023 2:23 PM EDTAssociated Problem(s): Hyperlipidemia High intensity statin Annual labs through PCP [facility] Work Phone: 1(405) 591-941203-21-2024 Evaluation + Plan note* Assessment & Plan Note - AAN Mac - 04/29/2023 2:23 PM EDTAssociated Problem(s): Coronary artery disease involving [place] coronary artery of [place] heart with out angina pectoris No ACS admit or acute CT. CAD was identified on testing for high PVC burden. November 2019 mLAD PCI/Mauro 2.5/22mm (+IFR) Circumflex negative RCA negative LVEF 65% May 2021 MPI no ischemia [facility] Work Phone: 1(706) 668-757703-21-2024 Evaluation + Plan note* Assessment & Plan Note - ANA Mac - 04/29/2023 2:22 PM EDTAssociated Problem(s): Benign essential hypertension Optimal in office [facility] Work Phone: 1(344) 500-559903-21-2024 History of Present illness Narrative* ANA Mac - 04/29/2023 2:00 PM EDT Chief Complaint Doing okay Reason for Visit [...] is now greater than 3.5 years from [place] stenting, no high ischemic wrist and therefore [...] Optimal in office Coronary artery disease involving [place] coronary artery of [place] heart without angina pectoris No ACS admit or acute CT. CAD was identified on testing for high [...] making process incorporating patients unique circumstances, the followingtreatment plan will be initiated: 1. Prescription drug management of cardiovascular medication for efficacy, adherence to treatment, side effect assessment and polypharmacy. Current treatment clinically warranted and to continue withfollowing modifications: - Stop clopidogrel 2. Return for follow-up; in the interim, contact the office if new symptoms arise. 9 months Discussed the dynamic nature of coronary artery disease and the importance of seeking medical attention if new symptoms arise. Gary Chávez MSN, PROVIDER NETWORK [employer] SERVICE REPRESENTATIVE, PMHNP-[facility] Please excuse any errors in grammar or translation related to this dictation. Voice recognition software was utilized to prepare this document. [facility] Work Phone: 1(964) 490-661703-21-2024 Instructions* Patient Instructions* ANA Mac - 04/29/2023 2:00 PM EDT [...] making process incorporating patients unique circumstances, the followingtreatment plan will be initiated: 1. Prescription drug management of cardiovascular medication for efficacy, adherence to treatment, side effect assessment and polypharmacy. Current treatment clinically warranted and to continue withfollowing modifications: - Stop clopidogrel 2. Return for follow-up; in the interim, contact the office if new symptoms arise. 9 months Discussed the dynamic nature of coronary artery disease and the importance of seeking medical attention if new symptoms arise. [facility] Work Phone: 1(842) 388-724501-23-2024 Evaluation note* Encounter Date Diagnosis Assessment Notes Treatment Notes Treatment Clinical Notes Feb, Diabetic nephropathy associated with type 1 diabetes mellitus (ICD- 10 - E10.21) Patient follows with Dr. Hatfield in primary care office for diabetes management. Last hemoglobin K7bttrelpk below 7%. I explained the patient the necessity of controlling diabetes to preserve kidney function. Patient might benefit from adding SLG 2 inhibitor which proven to slow CKD progression.I will defer this to the primary physician Feb,4Chronic kidney disease, stage 3b (ICD-10 - N18.32)Likely from hypertensive and diabetic nephropathy. Serum creatinine [...] follow-up with the patient in 6 months Feb,Hyperlipidemia, unspecified hyperlipidemia type (ICD-10 - E78.5)LDL within target. LDL goal below 100 to reduce cardiovascular disease and CKD patient. Patient is on statin. She follows with her PCP Feb,rimary hypertension (ICD-10 - I10)Blood pressure target is below 130/80. Will continue same BP medications Advised the patient to follow low Na diet and to monitor BP at home [employer] Other 08-08-2023 Evaluation note* Encounter Date Diagnosis Assessment Notes Treatment Notes Treatment Clinical Notes Sep, Diabetic nephropathy associated with type 1 diabetes mellitus (ICD- 10 - E10.21) Patient follows with Dr. Hatfield in primary care office for diabetes management. Last hemoglobin D5wvssweku below 7%. I explained the patient the necessity of controlling diabetes to preserve kidney function. Patient might benefit from adding SLG 2 inhibitor which proven to slow CKD progression.I will defer this to the primary physician Sep,hronic kidney disease, stage 3b (ICD-10 - N18.32)Likely from hypertensive and diabetic nephropathy. Serum creatinine [...] follow-up with the patient in 6 months Sep,Hyperlipidemia, unspecified hyperlipidemia type (ICD-10 - E78.5)LDL within target. LDL goal below 100 to reduce cardiovascular disease and CKD patient. Patient is on statin. She follows with her PCP Sep,rimary hypertension (ICD-10 - I10)Blood pressure target is below 130/80. Patient on max dose of losartan. Patient remains on the samedose of amlodipine 5 mg p.o. daily [employer] Other 04-18-2023 NotePROCEDURE: US KIDNEYS DATE: 05/26/2022 [...] Electronically authenticated by: RADHA OGLESBY Date: 2022-05-26 12:07[facility]03-15-2023 Evaluation note* Encounter Date Diagnosis Assessment Notes Treatment Notes Treatment Clinical Notes Apr, Diabetic nephropathy associated with type 1 diabetes mellitus (ICD- 10 - E10.21) Patient follows with Dr. Hatfield in primary care office for diabetes management. Last hemoglobin A1c6.8%. I explained the patient the necessity of controlling diabetes to preserve kidney function. Patient might benefit from adding SLG 2 inhibitor which proven to slow CKD progression Apr,hronic kidney disease, stage 3b (ICD-10 - N18.32)Likely from hypertensive and diabetic nephropathy. Serum creatinine [...] follow-up with the patient in 3 months Apr,Hyperlipidemia, unspecified hyperlipidemia type (ICD-10 - E78.5)LDL within target. LDL goal below 100 to reduce cardiovascular disease and CKD patient. Patient is on statin. She follows with her PCP Apr,rimary hypertension (ICD-10 - I10)Blood pressure target is below 130/80. Blood pressure is elevated here in the clinic. I asked the patient to monitor her blood pressure at home and to to call my office if blood pressure persistentlymore than 150/90. Patient on max dose of losartan. Mild increase amlodipine to 10 mg if blood pressure remains uncontrolled [employer] Other 10-11-2021 Evaluation note* Encounter Date Diagnosis Assessment Notes Treatment Notes Treatment Clinical Notes Nov, Injury of back, initial encounte r (ICD-10 - S39.92XA) patient is in so much pain she is unable to speak and breath; patient is tearful and states pain isintolerable. Recommend ER due to level of discomfort at this time. [employer] Other Evaluation + Plan note Future Appointments Appointment Date:10/05/2022 04:40:00 PM Scheduled Provider:Dewayne Richey MD Location[facility]ments Appointment Date:12/29/2022 11:00:00 AM Scheduled Provider: [facility] Appointment Type:FM Medicare Wellness Subsequent Appointment Date:04/05/2023 10:00:00 AM Scheduled Provider:Dewayne Richey MD Location:[facility] Appointment Type: Open Diagnostic Tests Pending * CBC w/ Auto Diff 10/05/22 * Comprehensive Metabolic Panel 10/05/22 * Lipid Panel 10/05/22 * HgbA1c 10/05/22 * Microalbumin Level Urine 10/05/22 * U Protein/Creat [facility] Appointment Date:12/29/2022 10:00:00 AM Scheduled Provider:Denia Ding Location:[facility] Appointment Type:BH Therapy 60 Appointment Date:04/05/2023 10:00:00 AM Scheduled Provider:Dewayne Richey MD Location:[facility] Appointment Type: Open Appointment Date:12/22/2023 11:00:00 AM Scheduled Provider: Location:[facility] Appointment Type: Medicare Wellness [facility] Behavioral Health evaluation + Plan note Future Appointments Appointment Date:01/05/2023 10:00:00 AM Scheduled Provider:Denia Ding Location:[facility] Appointment Type:BH Therapy 60 Appointment Date:04/05/2023 10:00:00 AM Scheduled Provider:Dewayne Richey MD Location:[facility] Appointment Type:FM Open Appointment Date:12/22/2023 11:00:00 AM Scheduled Provider: Location:[facility] Appointment Type: Medicare Wellness Subsequent Behavioral Health evaluation + Plan note Future Appointments Appointment Date:01/12/2023 10:00:00 AM Scheduled Provider:Denia Ding Location:[facility] Appointment Type:BH Therapy 60 Appointment Date:04/05/2023 10:00:00 AM Scheduled Provider:Dewayne Richey MD Location:[facility] Appointment Type:FM Open Appointment Date:12/22/2023 11:00:00 AM Scheduled Provider: Location:[facility] Appointment Type:FM Medicare Wellness Subsequent Behavioral Health evaluation + Plan note Future Appointments Appointment Date:01/19/2023 01:00:00 PM Scheduled Provider:Denia Ding Location:[facility] Appointment Type:BH Therapy 60 Appointment Date:04/05/2023 10:00:00 AM Scheduled Provider:Dewayne Richey MD Location:[facility] Appointment Type:FM Open Appointment Date:12/22/2023 11:00:00 AM Scheduled Provider: Location:[facility] Appointment Type:FM Medicare Wellness Subsequent Behavioral Health evaluation + Plan note Future Appointments Appointment Date:02/09/2023 11:00:00 AM Scheduled Provider:Denia Ding Location:[facility] Appointment Type:BH Therapy 60 Appointment Date:03/30/2023 10:00:00 AM Scheduled Provider:Dewayne Richey MD Location:[facility] Appointment Type:FM Open Appointment Date:12/22/2023 11:00:00 AM Scheduled Provider: Location:[facility] Appointment Type: Medicare Wellness [facility] Behavioral Health evaluation + Plan note Future Appointments Appointment Date:02/16/2023 10:00:00 AM Scheduled Provider:Denia Ding Location:[facility] Appointment Type:BH Therapy 60 Appointment Date:03/30/2023 10:00:00 AM Scheduled Provider:Dewayne Richey MD Location:[facility] Appointment Type:FM Open Appointment Date:12/22/2023 11:00:00 AM Scheduled Provider: Location:[facility] Appointment Type: Medicare Wellness [facility] Behavioral Health evaluation + Plan note Future Appointments Appointment Date:02/23/2023 02:00:00 PM Scheduled Provider:Denia Ding Location:[facility] Appointment Type:BH Therapy 60 Appointment Date:03/30/2023 10:00:00 AM Scheduled Provider:Dewayne Richey MD Location:[facility] Appointment Type:FM Open Appointment Date:12/22/2023 11:00:00 AM Scheduled Provider: Location:[facility] Appointment Type: Medicare Wellness [facility] Behavioral Health evaluation + Plan note Future Appointments Appointment Date:03/09/2023 11:00:00 AM Scheduled Provider:Denia Ding Location:[facility] Appointment Type:BH Therapy 60 Appointment Date:03/30/2023 10:00:00 AM Scheduled Provider:Dewayne Richey MD Location:[facility] Appointment Type: Open Appointment Date:12/22/2023 11:00:00 AM Scheduled Provider: Location:[facility] Appointment Type:FM Medicare Wellness Subsequent [facility] Behavioral Health evaluation + Plan note Future Appointments Appointment Date:03/23/2023 10:00:00 AM Scheduled Provider:Denia Ding Location:[facility] Appointment Type:BH Therapy 60 Appointment Date:03/30/2023 10:00:00 AM Scheduled Provider:Dewayne Richey MD Location:[facility] Appointment Type: Open Appointment Date:12/23/2023 09:30:00 AM Scheduled Provider: Location:[facility] Appointment Type:FM Medicare Wellness Subsequent [facility] Behavioral Health evaluation + Plan note Future Appointments Appointment Date:04/13/2023 09:00:00 AM Scheduled Provider:Denia Ding Location:[facility] Appointment Type:BH Therapy 60 Appointment Date:06/29/2023 10:00:00 AM Scheduled Provider:Dewayne Richey MD Location:[facility] Appointment Type:FM Open Appointment Date:12/23/2023 09:30:00 AM Scheduled Provider: Location:[facility] Appointment Type:FM Medicare Wellness Subsequent [facility] Behavioral Health evaluation + Plan note Future Appointments Appointment Date:05/12/2023 12:00:00 PM Scheduled Provider:Denia Ding Location:[facility] Appointment Type:BH Therapy 60 Appointment Date:06/29/2023 10:00:00 AM Scheduled Provider:Dewayne Richey MD Location:[facility] Appointment Type:FM Open Appointment Date:12/23/2023 09:30:00 AM Scheduled Provider: Location:[facility] Appointment Type:FM Medicare Wellness Subsequent [facility] Behavioral Health evaluation + Plan note Future Appointments Appointment Date:06/09/2023 05:00:00 PM Scheduled Provider:Denia Ding Location:[facility] Appointment Type:BH Therapy 60 Appointment Date:06/29/2023 10:00:00 AM Scheduled Provider:Dewayne Richey MD Location:[facility] Appointment Type:FM Open Appointment Date:12/23/2023 09:30:00 AM Scheduled Provider: Location:[facility] Appointment Type: Medicare Wellness [facility] Behavioral Health evaluation + Plan note Future Appointments Appointment Date:06/29/2023 10:00:00 AM Scheduled Provider:Dewayne Richey MD Location:[facility] Appointment Type:FM Open Appointment Date:12/23/2023 09:30:00 AM Scheduled Provider: Location:[facility] Appointment Type:FM Medicare Wellness Subsequent [facility] Behavioral Health evaluation + Plan note Future Appointments Appointment Date:09/15/2023 10:00:00 AM Scheduled Provider:Denia Ding Location:[facility] Appointment Type:BH Therapy 60 Appointment Date:09/28/2023 10:00:00 AM Scheduled Provider:Dewayne Richey MD Location:[facility] Appointment Type:FM Open Appointment Date:09/29/2023 10:00:00 AM Scheduled Provider:Denia Ding Location:[facility] Appointment Type:BH Therapy 60 Appointment Date:10/13/2023 10:00:00 AM Scheduled Provider:Denia Ding Location:[facility] Appointment Type:BH Therapy 60 Appointment Date:12/23/2023 01:00:00 PM Scheduled Provider: Location:[facility] Appointment Type:FM Medicare Wellness Subsequent Behavioral Health evaluation + Plan note Future Appointments Appointment Date:09/28/2023 10:00:00 AM Scheduled Provider:Dewayne Richey MD Location:[facility] Appointment Type:FM Open Appointment Date:09/29/2023 10:00:00 AM Scheduled Provider:Denia Ding Location:[facility] Appointment Type:BH Therapy 60 Appointment Date:10/13/2023 10:00:00 AM Scheduled Provider:Denia Ding Location:[facility] Appointment Type:BH Therapy 60 Appointment Date:12/23/2023 01:00:00 PM Scheduled Provider: Location:[facility] Appointment Type: Medicare Wellness Subsequent Behavioral Health evaluation + Plan note Future Appointments Appointment Date:09/29/2023 10:00:00 AM Scheduled Provider:Denia Ding Location:[facility] Appointment Type:BH Therapy 60 Appointment Date:10/13/2023 10:00:00 AM Scheduled Provider:Denia Ding Location:[facility] Appointment Type:BH Therapy 60 Appointment Date:12/23/2023 01:00:00 PM Scheduled Provider: Location:[facility] Appointment Type:FM Medicare Wellness Subsequent Appointment Date:03/27/2024 10:00:00 AM Scheduled Provider:Dewayne Richey MD Location:[facility] Appointment Type: Open [facility] Evaluation + Plan note Future Appointments Appointment Date:10/13/2023 10:00:00 AM Scheduled Provider:Denia Ding Location:[facility] Appointment Type:BH Therapy 60 Appointment Date:12/23/2023 01:00:00 PM Scheduled Provider: Location:[facility] Appointment Type: Medicare Wellness Subsequent Appointment Date:03/27/2024 10:00:00 AM Scheduled Provider:Dewayne Richey MD Location:[facility] Appointment Type:[facility] Behavioral Health evaluation + Plan note Future Appointments Appointment Date:11/10/2023 10:00:00 AM Scheduled Provider:Denia Ding Location:[facility] Appointment Type:BH Therapy 60 Appointment Date:12/23/2023 01:00:00 PM Scheduled Provider: Location:[facility] Appointment Type: Medicare Wellness Subsequent Appointment Date:03/27/2024 10:00:00 AM Scheduled Provider:Dewayne Richey MD Location:[facility] Appointment Type:[facility] Behavioral Health evaluation + Plan note Future Appointments Appointment Date:11/24/2023 10:00:00 AM Scheduled Provider:Denia Ding Location:[facility] Appointment Type:BH Therapy 60 Appointment Date:12/23/2023 01:00:00 PM Scheduled Provider: Location:[facility] Appointment Type: Medicare Wellness Subsequent Appointment Date:03/27/2024 10:00:00 AM Scheduled Provider:Dewayne Richey MD Location:[facility] Appointment Type:[facility] Behavioral Health evaluation + Plan note Future Appointments Appointment Date:12/08/2023 10:00:00 AM Scheduled Provider:Denia Ding Location:[facility] Appointment Type:BH Therapy 60 Appointment Date:12/23/2023 01:00:00 PM Scheduled Provider: Location:[facility] Appointment Type: Medicare Wellness Subsequent Appointment Date:03/27/2024 10:00:00 AM Scheduled Provider:Dewayne Richey MD Location:[facility] Appointment Type:[facility] Behavioral Health Evaluation + Plan note Future Appointments Appointment Date:12/23/2023 01:00:00 PM Scheduled Provider: Location:[facility] Appointment Type: Medicare Wellness Subsequent Appointment Date:12/28/2023 10:00:00 AM Scheduled Provider:Denia Ding Location:[facility] Appointment Type:BH Therapy 60 Appointment Date:03/27/2024 10:00:00 AM Scheduled Provider:Dewayne Richey MD Location:[facility] Appointment Type: Open Behavioral Health evaluation + Plan note Future Appointments Appointment Date:12/31/2023 01:20:00 PM Scheduled Provider: Location:[facility] Appointment Type: Lab Draw Appointment Date:01/04/2024 10:00:00 AM Scheduled Provider:Denia Ding Location:[facility] Appointment Type:BH Therapy 60 Appointment Date:03/27/2024 10:00:00 AM Scheduled Provider:Dewayne Richey MD Location:[facility] Appointment Type: Open Appointment Date:12/25/2024 01:00:00 PM Scheduled Provider: Location:[facility] Appointment Type:FM Medicare Wellness Subsequent Future Scheduled Tests Laboratory* HgbA1c 12/23/23 * HCV Antibody RFX to Quant PCR 12/23/23 Behavioral Health evaluation + Plan note Future Appointments Appointment Date:01/04/2024 10:00:00 AM Scheduled Provider:Denia Ding Location:[facility] Appointment Type:BH Therapy 60 Appointment Date:03/27/2024 10:00:00 AM Scheduled Provider:Dewayne Richey MD Location:[facility] Appointment Type: Open Appointment Date:12/25/2024 01:00:00 PM Scheduled Provider: Location:[facility] Appointment Type:FM Medicare Wellness Subsequent Diagnostic Tests Pending * HCV Antibody RFX to Quant PCR 12/31/23 [facility] Evaluation + Plan note Future Appointments Appointment Date:01/11/2024 09:00:00 AM Scheduled Provider:Denia Ding Location:[facility] Appointment Type:BH Therapy 60 Appointment Date:03/27/2024 10:00:00 AM Scheduled Provider:Dewayne Richey MD Location:[facility] Appointment Type:FM Open Appointment Date:12/25/2024 01:00:00 PM Scheduled Provider: Location:[facility] Appointment Type: Medicare Wellness Subsequent Behavioral Health evaluation + Plan note Future Appointments Appointment Date:01/17/2024 09:30:00 AM Scheduled Provider:Dewayne Richey MD Location:[facility] Appointment Type:FM Open Appointment Date:01/18/2024 10:00:00 AM Scheduled Provider:Denia Ding Location:[facility] Appointment Type:BH Therapy 60 Appointment Date:03/27/2024 10:00:00 AM Scheduled Provider:Dewayne Richey MD Location:[facility] Appointment Type:FM Open Appointment Date:12/25/2024 01:00:00 PM Scheduled Provider: Location:[facility] Appointment Type: Medicare Wellness [facility] Behavioral Health evaluation + Plan note Future Appointments Appointment Date:02/15/2024 09:00:00 AM Scheduled Provider:Denia Ding Location:[facility] Appointment Type:BH Therapy 60 Appointment Date:02/22/2024 09:00:00 AM Scheduled Provider:[facility]ing [facility] Type:BH Therapy 60 Appointment Date:03/27/2024 10:00:00 AM Scheduled Provider:Dewayne Richey MD Location:[facility] Appointment Type:FM Open Appointment Date:12/25/2024 01:00:00 PM Scheduled Provider: Location:[facility] Appointment Type:FM Medicare Wellness [facility] Behavioral Health evaluation + Plan note Future Appointments Appointment Date:02/22/2024 09:00:00 AM Scheduled Provider:Denia Ding Location:[facility] Appointment Type:BH Therapy 60 Appointment Date:03/27/2024 10:00:00 AM Scheduled Provider:Dewayne Richey MD Location:[facility] Appointment Type:FM Open Appointment Date:12/25/2024 01:00:00 PM Scheduled Provider: Location:[facility] Appointment Type:FM Medicare Wellness [facility] Behavioral Health evaluation + Plan note Future Appointments Appointment Date:03/07/2024 09:00:00 AM Scheduled Provider:Denia Ding Location:[facility] Appointment Type:BH Therapy 60 Appointment Date:03/27/2024 10:00:00 AM Scheduled Provider:Dewayne Richey MD Location:[facility] Appointment Type:FM Open Appointment Date:12/25/2024 01:00:00 PM Scheduled Provider: Location:[facility] Appointment Type: Medicare Wellness [facility] Behavioral Health evaluation + Plan note Future Appointments Appointment Date:03/21/2024 09:00:00 AM Scheduled Provider:Denia Ding Location:[facility] Appointment Type:BH Therapy 60 Appointment Date:03/23/2024 10:30:00 AM Scheduled Provider:Dewayne Richey MD Location:[facility] Appointment Type:FM Open Appointment Date:12/25/2024 01:00:00 PM Scheduled Provider: Location:[facility] Appointment Type: Medicare Wellness [facility] Behavioral Health evaluation + Plan note Future Appointments Appointment Date:04/18/2024 09:00:00 AM Scheduled Provider:Denia Ding Location:[facility] Appointment Type:BH Therapy 60 Appointment Date:04/25/2024 10:00:00 AM Scheduled Provider:Denia Ding Location:[facility] Appointment Type:BH Therapy 60 Appointment Date:05/02/2024 09:00:00 AM Scheduled Provider:Denia Ding Location:[facility] [place] [place] [facility] Appointment Type:BH Therapy 60 Appointment Date:05/09/2024 08:15:00 AM Scheduled Provider:Dewayne Richey MD Location:[facility] Appointment Type:FM Open Appointment Date:12/25/2024 01:00:00 PM Scheduled Provider: Location: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 ([facility] SYSTEM/FORMERLY [facility]) BMI 32.0-32.9,adult documented in this encounter [facility] Work Phone: Evaluation note* Diagnosis Onset Date Resolution Status Chronic kidney disease, stage 3b acuteDiabetic nephropathy associated with type 2 diabetes mellitusacute HypercalcemiaacuteHyperlipemiaacuteHypertensive nephropathyacuteObesityacute [facility] Work Phone: evaluation note* Diagnosis Coronary artery disease involving [place] coronary artery of [place] heart without angina pectoris- Primary Benign essential hypertension Essential hypertension, benign Mixed hyperlipidemia PVC's (premature ventricular contractions) Other premature beats 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 BMI 32.0-32.9,adult Coronary artery disease involving [place] coronary artery of [place] heart without angina pectoris PVC's (premature ventricular contractions) Other premature beats Benign essential hypertension Essential hypertension, benign 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) Mixed hyperlipidemia BMI 32.0-32.9,adult Never smoked tobacco documented in this encounter [facility] Work Phone: evaluation note* Diagnosis Onset Date Resolution Status Admit Date Chronic kidney disease, stage 3b acuteFebruary 2024 10:18amDiabetic nephropathy associated with type 2 diabetes mellitusacuteFebruary 2024 10:18amHypercalcemiaacuteFebruary 2024 10:18amHyperlipemiaacuteFebruary 2024 10:18amHypertensive nephropathy acuteFebruary 2024 10:18amObesityacuteFebruary 2024 10:18am [facility] Work Phone: History general Narrative - Reported* Type Description Date Medical History Insomnia Medical HistoryAnxietyMedical HistoryOAB (overactive bladder)Medical Historytype I diabetesMedical Historyhigh cholesterolSurgical Historytonsillectomy and adenoidectomySurgical HistoryappendectomySurgical Historyknee surgerySurgical Historycyst removalSurgical HistoryhysterectomySurgical Historycholecystectomy Surgical Historybowel surgerySurgical HistoryeyesSurgical Historylumpectomy Surgical Historybladder slingHospitalization Historysee above [employer] Other Hisdgou general Narrative - Reported* Type Description Date Medical History Insomnia Medical HistoryAnxietyMedical HistoryOAB (overactive bladder)Medical Historytype I diabetesMedical Historyhigh cholesterolMedical HistoryCHRONIC KIDNEY DISEASE 3Medical HistoryDIABETIC RETINOPATHY ASSOCIATED WITH TYPE I DIABETES MELLITUS Medical HistoryGASTROPARESISMedical HistoryGERDMedical HistoryPURE HYPERCHOLESTEROLEMIASurgical Historytonsillectomy and adenoidectomySurgical HistoryappendectomySurgical Historyknee surgerySurgical Historycyst removal Surgical HistoryhysterectomySurgical HistorycholecystectomySurgical Historybowel surgerySurgical HistoryeyesSurgical HistorylumpectomySurgical Historybladder slingSurgical HistoryBOWEL BLOCKAGESurgical HistoryBREAST LUMPHospitalization Historysee abovespitalization History4 CHILD BIRTHS [employer] Other History of Present illness Narrative* Patient [...] our next steps are going to be. [facility] 600 DO Work Phone: History [...] lipids also appear to be adequately addressed. [facility] 600 DO Work Phone: History [...] the merits of diet and weight loss. [facility] 250 DO Work Phone: History of [...] to call if they arise or occur. [facility] 600 DO Work Phone: Hospital course Narrative No data available for this section [facility] No data available for this section [facility] No data available for this section [facility] HospitalReason for referral (narrative)* Consultation (Routine) - AuthorizedSpecialtyDiagnoses / ProceduresReferred By Contact Referred To ContactCardiology Diagnoses Coronary artery disease involving [place] coronary artery of [place] heart without angina pectoris Procedures Follow Up In Cardiology Gary Chávez APRN-CNP [address] [facility] [address], [facility] [address] [place] [address] Referral IDStatusReasonStart DateExpiration DateVisits RequestedVisits [id number] [facility] Work Phone: Family History No Family History Records FoundUnknown Family Member Name Dates Details Family history of cardiovasc ular disease: Mother, Father(V17.49, Z82.49) Status:ActiveFamily history of diabetes mellitus: Sister(V18.0, Z83.3) Status:Active Unknown Family Member Name Dates Details Family history of cardiovasc ular disease: Mother, Father(V17.49, Z82.49) Status:ActiveFamily history of diabetes mellitus: Sister(V18.0, Z83.3) Status:Active Unknown Family Member Name Dates Details Family history of cardiovasc ular disease: Mother, Father(V17.49, Z82.49) Status:ActiveFamily history of diabetes mellitus: Sister(V18.0, Z83.3) Status:Active Unknown Family Member Name Dates Details Family history of cardiovasc ular disease: Mother, Father(V17.49, Z82.49) Status:ActiveFamily history of diabetes mellitus: Sister(V18.0, Z83.3) Status:Active Unknown Family Member Name Dates Details Family history of cardiovasc ular disease: Mother, Father(V17.49, Z82.49) Status:ActiveFamily history of diabetes mellitus: Sister(V18.0, Z83.3) Status:Active Unknown Family Member Name Dates Details Family history of cardiovasc ular disease: Mother, Father(V17.49, Z82.49) Status:ActiveFamily history of diabetes mellitus: Sister(V18.0, Z83.3) Status:Active Unknown Family Member Name Dates Details Family history of cardiovasc ular disease: Mother, Father(V17.49, Z82.49) Status:ActiveFamily history of diabetes mellitus: Sister(V18.0, Z83.3) Status:Active Unknown Family Member Name Dates Details Family history of cardiovasc ular disease: Mother, Father(V17.49, Z82.49) Status:ActiveFamily history of diabetes mellitus: Sister(V18.0, Z83.3) Status:Active Unknown Family Member Name Dates Details Family history of diabetes m ellitus: Sister(V18.0, Z83.3) Status:ActiveFamily history of cardiovascular disease: Mother, Father(V17.49, Z82.49) Status:Active Unknown Family Member Name Dates Details Family history of cardiovasc ular disease: Mother, Father(V17.49, Z82.49) Status:ActiveFamily history of diabetes mellitus: Sister(V18.0, Z83.3) Status:Active Unknown Family Member Name Dates Details Family history of cardiovasc ular disease: Mother, Father(V17.49, Z82.49) Status:ActiveFamily history of diabetes mellitus: Sister(V18.0, Z83.3) Status:Active Unknown Family Member Name Dates Details Family history of cardiovasc ular disease: Mother, Father(V17.49, Z82.49) Status:ActiveFamily history of diabetes mellitus: Sister(V18.0, Z83.3) Status:Active Relationship Condition Age at Onset Recorded Date/T erasto father Malignant neoplasm Unknown Heart diseaseUnknownDeceasedUnknownHypertensionUnknownmotherHypertensionUnknown sonHypertensionUnknownDiabetes mellitusUnknownsisterDiabetes mellitusUnknown Summary Purpose Advance Directives No Advanced Directives Records Found Advance Directive Response Recorded Date/ Time Advance Directives No April 19 4:20pm Advance Directive Response Recorded Date/ Time Advance Directives No March 12th, 2 020 3:20pm Chief Complaint JADE MCNULTY is being seen for an annual follow-up of [place] Abnormal Holter.JADE MCNULTY is being seen for Testing results.JADE MCNULTY is being seen for a 4-6 [...] Admit Date Chronic kidney disease, stage 3b uar 2024 10:18am 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 March 14, 2024 10:18am Hypercalcemia March 14, 2024 1 0:18am Hyperlipemia March 14, 2024 1 0:18am Hypertensive nephropathy March 14, 025 10:18am Obesity March 14, 2024 1 0:18am Additional Source Comments INFORMATION SOURCE (unrecogn ized section and content) DATE CREATED AUTHOR 07/31/2021 [facility] DATE CREATED AUTHOR AUTHOR'S ORGANIZ ATION 06/21/2022 [facility] DATE CREATED AUTHOR AUTHOR'S ORGANIZ ATION 07/17/2022 [facility] DATE CREATED AUTHOR AUTHOR'S ORGANIZ ATION 12/25/2022 [employer] DATE CREATED AUTHOR AUTHOR'S ORGANIZ ATION 09/29/2023 [facility] DATE CREATED AUTHOR AUTHOR'S ORGANIZ ATION 01/04/2024 [facility] DATE CREATED AUTHOR AUTHOR'S ORGANIZ ATION 01/06/2024 [facility] DATE CREATED AUTHOR AUTHOR'S ORGANIZ ATION 01/29/2024 [facility] DATE CREATED AUTHOR AUTHOR'S ORGANIZ ATION 03/24/2024 [facility] DATE CREATED AUTHOR AUTHOR'S ORGANIZ ATION 10/31/2024 [facility] DATE CREATED AUTHOR AUTHOR'S ORGANIZ ATION 11/13/2024 [facility] DATE CREATED AUTHOR AUTHOR'S ORGANIZ ATION 12/14/2024 [facility] REASON FOR VISIT (unrecogniz ed section and content) ReasonCommentsFollow-up9 monthsReasonCommentsFollow-up9 monthSpecialtyDiagnoses / ProceduresReferred By ContactReferred To ContactCardiology Diagnoses Coronary artery disease involving [place] coronary artery of [place] heart without angina pectoris Procedures Follow Up In Cardiology Kyler Gary K, PROVIDER [employer]WORK [employer] REPRESENTATIVE [address] [facility] [address] [place] [address] Phone: tel: fax: Referral IDStatusReasonStart DateExpiration DateVisits RequestedVisits [id number] Patient Care team informatio n (unrecognized section and content) Team MemberRelationshipSpecialtyStart DateEnd Date Domonique [place] MD [address] [facility] [place] [address] [facility]05/18/02 Team Status: Active Member Role Status Dates Domonique [place] MD Primary Care Provider Active Team Status: Active Member Role Status Dates Domonique [place] MD Primary Care Provider Active S tart: September 22, 2023 Frantz May ProviderActiveStart: September 22, 2023 Team Status: Inactive Member Role Status Dates Domonique [place] MD Primary Care Provider Active S tart: September 28, 2023 End: September 27Frantz Villar ProviderActiveStart: September 28, 2023 End: September 28, 2023Team MemberRelationshipSpecialtyStart DateEnd Date Dewayne Richey MD [address] [facility] [place] [address] PCP [facility]01/26/24 Team Status: Active Member Role Status Dates Dewayne Richey MD Primary Care Provider Active Team Status: Active Member Role Status Dates Domonique [place] MD Primary Care Provider Active S tart: March 07, 2024 Ramsey Steward MDAttgautam ProviderActiveStart: March 07, 2024 Team Status: Inactive Member Role Status Dates Ramsey Steward MD Attending Provider Active Star t: March 14, 2024 End: March 14, 2024Dewayne Richey MDPriFreeman Orthopaedics & Sports [facility] ProviderActiveStart: March 14, 2024 End: March 14, 2024 [...] BE BASED ON THE PRIMARY CLINICAL RECORDS. [employer] provides no warranty or guarantee of the accuracy or completeness of information in this document.
[2024-12-26 10:14] LABS: Hematocrit 41.5 % (36.0-48.0); Hemoglobin 13.3 g/dL (12.0-16.0); Mean Corpuscular HGB Conc 32.0 g/dL (29.9-35.2); Mean Corpuscular Hemoglobin 27.5 pg (26.7-34.0); Mean Corpuscular Volume 85.9 fL (81.0-99.0); Platelet Count 178 10^3/uL (150-450); Red Blood Count 4.83 10^6/uL (4.20-5.40); White Blood Count 7.2 10^3/uL (4.0-11.0)
[2024-12-26 10:58] LABS: Glucose Urine UA 100 mg/dL (NEGATIVE)
[2024-12-26 11:14] LABS: Microalbum Creatinine Ratio Ur 106.3 mg/g (0.0-29.9); Protein Creatinine Ratio Urine 0.36; Total Protein Urine Random 37.7 mg/dL (<=11.9)
[2024-12-26 11:27] LABS: Albumin Level 4.0 g/dL (3.4-5.0); Anion Gap 10.2; Blood Urea Nitrogen 21.0 mg/dL (7.0-18.0); Calcium 9.7 mg/dL (8.5-10.1); Carbon Dioxide 30.8 mmol/L (21.0-32.0); Chloride 104 mmol/L (98-107); Estimated GFR (African America 50 (>=60 mL/min/1.73m^2); Estimated GFR (Non-African Ame 41 (>=60 mL/min/1.73m^2); Glucose 108 mg/dL (74-106); Magnesium 1.9 mg/dL (1.8-2.4); Potassium 4.0 mmol/L (3.5-5.1); Sodium 141 mmol/L (136-145); Uric Acid 2.9 mg/dL (2.6-6.0)
== END 2024-12-26 09:41 | disposition home or self-care (01) ==
LOC: LAB 09:42
PROVIDERS: Visit Provider Internal Medicine Nephrology
DX: E83.52 Hypercalcemia (principal); I12.9 Hypertensive chronic kidney disease with stage 1 through stage 4 chronic kidney disease, or unspecified chronic kidney disease; N18.32 Chronic kidney disease, stage 3b; E11.21 Type 2 diabetes mellitus with diabetic nephropathy; E78.5 Hyperlipidemia, unspecified; E66.9 Obesity, unspecified
CPT/HCPCS: 36415; 80069; 81003; 82043; 82306; 82570; 83735; 83970; 84156; 84550; 85027

== ENCOUNTER 2025-01-03 13:08 | Outpatient (OUT) | payer MEDICARE, SELFPAY ==
--- OUTSIDE RECORDS SUMMARY | 2025-01-02 04:38 | XMS_ITS | Continuity of Care Document ---
Author Organization [facility] Address [address] [place] [address] Phone Care Team Providers Care Rigging Up Man Name Role Phone Delmar Rivero MD Primary Care Provider [phone] Ramsye Steward MD Attending Provider [phone] Magdalena Weiss DO Primary Care Provider Care Teams Patient Care Team Team Status: Active Member Role/Relationship Status Dates Magdalena Michelle DO Primary Care Provider Active Patient Care Team Team Status: Active Member Role/Relationship Status Dates Delmar Rivero MD Primary Care Provider Active Start: December 26, 2024 Greg Mayending ProviderActiveStart: December 26, 2024 Patient Care Team Team Status: Inactive Member Role/Relationship Status Dates Ramsey Steward MD Attending Provider Active Star t: January 02, 2025 End: January 02, 2025Jones Reese Care ProviderActiveStart: January 02, 2025 End: January 02, 2025 Chief Complaint and Reason for Visit Chief Complaint Admit Date RENAL 6 MONTHS January 02, 2025 9:12am Reason for Visit Admit Date Chronic kidney disease, stage 3b Novembe 2024 9:12am 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 January 02, 2025 9:12am Hypercalcemia January 02, 2025 9:12am Hyperlipemia January 02, 2025 9:12am Hypertensive nephropathy January 02, 2025 9:12am Obesity January 02, 2025 9:12am Allergies, Adverse Reactions, Alerts Allergen Type Severity Reaction Last Updated Verified Status diclofenac Allergy Unknown Unknown Reaction January 01, 2025 3:14pm Yes Active misoprostol Allergy Unknown Unknown Reaction Novembe r 2024 3:14pm Yes Active No Known Allergies Allergy Unknown January 01, 2025 3:14pmYesActive Social History Smoking Status Status Start Date End Date Date of Observa tion Never smoked tobacco (finding) September 28, 2023 10:47am Observation Status Observation Response Date of Response Legal Sex Female (finding) Sex Assigned At BirthFemaleMay 1950 Family History Relationship Condition Age at Onset Recorded Date/T erasto father Malignant neoplasm Unknown Heart diseaseUnknownDeceasedUnknownHypertensionUnknownmotherHypertensionUnknown Heart diseaseUnknownDeceasedUnknownsonHypertensionUnknownDiabetes mellitus UnknownsisterDiabetes mellitusUnknownDeceasedUnknown Problems Active Problems Problem Diagnosis/Recorded Date Onset Date Stat Chronic kidney disease, stage 3b September 25, 2023 1:0 3pm Unknown Active Sleep apnea November 26, 2019 8:16am Unknown Ac tive Shortness of breath November 26, 2019 10:06am Unknown Active Dizziness November 26, 2019 10:06am Unknown A ctive Diabetes November 26, 2019 10:06am Unknown A ctive Hyperlipemia November 26, 2019 8:16am Unknown Ac tive Abnormal stress test November 26, 2019 10:06am Unknow n Active 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 September 25, 2023 1:03pm Unknown Active Ventricular ectopy November 26, 2019 10:06am Unknown Active Chest pain November 26, 2019 10:06am Unknown A ctive Hypertension November 26, 2019 11:32am Unknown A ctive Hypertensive nephropathy September 25, 2023 1:03pm Unkn own Active Obesity November 26, 2019 10:06am Unknown A ctive Hypercalcemia September 28, 2023 9:57am Unknown Ac tive Medications Medication Status Dose Units Route Directions Qty Days Refills S tart Date Stop Date End Date Reason(s) Instructions Adherence Atorvastatin 20 mg tablet Discontinued 20 MG PO D aily at bedtime November 25, 2019 11:00pmgus2023 9:36amInsulin Glargine (Lantus U-100 Insulin) 100 unit/mL sprfgneuWrfkvddzyoan54BFZQBOJCOJNaoer dailyNovember 25, 2019 11:00pmgus2023 9:40amsliding scaleAmitriptyline 25 mg tablet Lxpswtcqppks25DIZOYtfdl at bedtimeNovember 25, 2019 11:00pmgall[facility]2023 9:35amMetoprolol Succinate 25 mg tablet extended release 24 tvZokhhzvqabfa76CFCF Every morningNovember 25, 2019 11:00pmNovember 28, 2019 2:42pmLosartan 100 mg uwbxonIfgexq471ABCBLdssq at bedtimeNovember 25, 2019 11:00pmComplies with drug therapyInsulin Lispro (Humalog Kwikpen Insulin) 100 unit/mL insulin pen Carpgbohztmf32ADPOMLZYAQEidjv dailyNovember 25, 2019 11:00pmNovember 26, 2019 11:18amSitagliptin Phosphate (Januvia) 100 mg swqgpwZlelubujuuzh516DHNYSemjd 2019 11:00pmgall[facility]2023 9:34amMecobal-Levomefolat Ca- B6 Phos (I-Zhctol-S9-B12) 3-35-2 mg lopiynGqtntwhljzca7EXABIKdueh 2019 11:00pmgall[facility]2023 9:36amCanagliflozin (Invokana) 100 mg tablet Snlnborgnwzp248HXJNVmsor 2019 11:00pmCar[facility]20[facility] 9:36amInsulin Lispro (Humalog Kwikpen Insulin) 100 unit/mL insulin penActive0 UNITSUBCUTBefore meals and at bedtime Protocol: *If the corrective scale dose has been administered within the past 4 hours, do not use corrective scale again unless approved by prescriber* Condition: Corrective Scale #4 (TDI 76-100 UNITS) Condition: Dose/Route: Instructions: Condition: Fingerstick Blood Glucose Dose/Route: Insulin Units Condition: 150-199 mg/dl Dose/Route: 3 unit Condition: 200-249 mg/dl Dose/Route: 4 unit Condition: 250-299 mg/dl Dose/Route: 8 unit Condition: 300-349 mg/dl Dose/Route: 12 unit Condition: 350-399 mg/dl Dose/Route: 14 unit Condition: greater than or = 400 mg/dl Dose/Route: 16 unit Instructions: Call ProviderNovember 25, 2019 11:00pmPlease contact the information source for Protocol details.Complies with drug therapyMetoprolol Succinate 50 mg Tablet Extended Release 24 NmBwlczgmmvwml44CGRQEoeqi [id number] 11:00pmAugallup indian medical center2023 9:36amAspirin 81 mg Tablet,VgyhyumaAasqdd23KVJXKqmcv76Jftnhwg 19th, 2020 11:00pmComplies with drug therapyTicagrelor (Brilinta) 90 mg LeywkyIyiyrfyjmhsv07RFGBTqtla kmige083976 November 27, 2019 11:00pmCar[facility]2023 9:36amNitroglycerin 0.4 mg tablet, sublingualActive0.8RQKIWDOBYCJBT3A as needed for chest tvhn92372Hanhzzj 2019 11:00pmdo not exceed 3 doses per episodeComplies with drug therapyMeclizine 12.5 mg bquirxZadhefklpggx51.5MGPOThree times daily as needed for drjmrmtqx95901 November 27, 2019 11:00pmAugall[facility]2023 9:36amInsulin Glargine (Lantus U-100 Insulin) 100 unit/mL lstkhodaMaytkfauhskd01MVIHERLROFVhtrn eveningSeptember 28, 2023 9:35amNovember 2024 9:17amInsulin Glargine (Lantus U-100 Insulin) 100 unit/mL jlmvsojlXixtgo17RZIBDLMIVKLcxyp eveningNov2024 9:15am Complies with drug therapyLatanoprost 0.005 % sjfcpNfpijh4TFBPNBRQZAFNNLFIysdj 2023 11:00pmComplies with drug therapyAmlodipine 5 mg tablet Jzdcus2FYNOKeuplTilend 2023 11:00pmComplies with drug therapySitagliptin Phosphate 100 mg gehvvnGsolyrbzxkeo089GDVOBgbvwPsvqbv 2023 11:00pmFebruary 2024 10:25amRosuvastatin 20 mg ywkxbxYxlgen81QOQXYvruoOthskz 2023 11:00pmComplies with drug therapyMultivitamin jgejjlClrzbj8INEQVEzeziDppczo 2023 11:00pmComplies with drug therapyLutein-Zeaxanthin 20 mg- 1,000 mcg gimrwkqBeihujgamoda4YXONVajnqzBixhak 2023 11:00pmNovember 2024 9:17amBiotin 1,000 mcg tablet,mldysdqlUduvvhqvciwh5924TENESKsfspAlsvpz 2023 11:00pmNovember 2024 9:16amTrazodone 50 mg mpqizlDdbbou68DXKLKfthc at bedtimeCarilion Giles [facility] Hospitalt 2023 11:00pmComplies with drug therapySitagliptin Phosphate (Januvia) 25 mg rosudyRaxrtfoqnhbn78TOKOGqmyzBwzysjpq 2024 12:00amFebruary 2024 10:29amCinnamon Bark 500 mg sxbwsroIrrkco5050QOOXYxppdNescnpnz 2024 12:00amComplies with drug therapySitagliptin Phosphate (Januvia) 25 mg mhdnklWsjhfkkucswe171WHJDYbbkuFbdakpwz 2024 10:29amNovember 2024 9:17amBupropion Hcl 300 mg tablet extended release 24 rzQaqwng201TBHZbscuj January 02, 2025 12:00amComplies with drug therapy Immunizations Immunization Event Date Not Given Reason Dose Number Product Examiner Lot Number Reason(s) Given Vaccine Information Statement (VIS) Detail Administration Location Fluzone QIV High-Dose 65YR+ November 27, 2019 [id number] [facility] [place] [facility] Device Date Implanted Device Details Drug-eluting coronary artery stent, uvs-wjjcfbxyqltnf-gusomew-coated November 27, 2019 CHARLES: [id number] Issuing Agency: [employer] Device Id: [id number] Lot Number: [id number] Relevant Diagnostic Tests and/or Laboratory Data Laboratory Results Test Collection Date/Time Result Date/Time Result Interpretation Reference Range Result Comment Performing Site Urine Bilirubin December 26, 2024 9:49am December 26, 2024 9:49am NEGATIVE NEGATIVEUrine Protein/Creatinine RatioN2024 9:49amNovemb2024 9:49am0.36Urine Random CreatinineDecember 26, 2024 9:49amNovember 2024 9:68iz557.42 mg/dL20.00-300.00Parathyroid Hormone (Intact)December 26, 2024 10:10amNove2024 10:10am20 pg/eV01-97Ouxobbpww at: [facility] [id number] Director: Eduardo Francis PhD, Phone: [phone]-Jgdgmyi Vitamin D TotalDecember 26, 2024 10:10amNove2024 10:10am60.8 ng/mL<20 ng/mL Vit D sliigwdsm36-<30 ng/mL Vit D uaykstmguarg81-268 ng/mL Vit D sufficient>100 ng/mL Potential ToxicityMagnesium LevelDecember 26, 2024 10:10amN2024 10:10am1.9 mg/dL1.8-2.4Uric AcidDecember 26, 2024 10:10amNove2024 10:10am2.9 mg/dL2.6-6.0Anion GapDecember 26, 2024 10:10amNove2024 10:10am10.2HematocritDecember 26, 2024 10:10amNove2024 10:10am41.5 %36.0-48.0Urine Occult Blood December 26, 2024 9:49amNovember 2024 9:49amNEGATIVENEGATIVEUrine Random Total ProteinDecember 26, 2024 9:49amNovemb2024 9:49am37.7 mg/dLAbove high normal<=11.9Urine Random MicroalbuminNovember 2024 9:49amNovember 2024 9:49am11.0 mg/dL<=30.0AlbuminNovember 2024 10:10amNove2024 10:10am4.0 g/dL3.4-5.0HemoglobinNovember 2024 10:10amNovemb2024 10:10am13.3 g/dL12.0-16.0Urine AppearanceNov2024 9:49am December 26, 2024 9:49amCLEARCLEARUrine Microalbumin/Creatinine RatioNove2024 9:49amNovember 2024 9:00wc287.3 mg/gAbove high normal0.0-29.9NO MICROALBUMINURIA 0-29 MG/GCLINICAL MICROALBUMINURIA 30-300 MG/GMACROALBUMINURIA >300 MG/GBUN/Creatinine RatioNformerly [facility]20[facility] 10:10amNove2024 10:10am16.5Mean Corpuscular HemoglobinNovember 2024 10:10amNove2024 10:10am27.5 pg26.7-34.0Urine ColorNovember 2024 9:49amNove2024 9:49amLT. YELLOWYELLOWBlood Urea NitrogenNov2024 10:10am December 26, 2024 10:10am21.0 mg/dLAbove high normal7.0-18.0Mean Corpuscular Hemoglobin ConcentNov2024 10:10amNove2024 10:10am32.0 g/dL29.9-35.2Urine Glucose (UA)December 26, 2024 9:49amNovemb2024 9:05zt559 mg/dLAbnormal (applies to non-numeric results)NEGATIVECalcium Level December 26, 2024 10:10amNovemb2024 10:10am9.7 mg/dL8.5-10.1Mean Corpuscular VolumeNovember 2024 10:10amNove2024 10:10am85.9 fL 81.0-99.0Urine KetonesNov2024 9:49amNove2024 9:49am NEGATIVE mg/dLNEGATIVEChloride LevelNovhopi health care center 2024 10:10amNove2024 10:87eg207 mmol/V48-614Dkpy Platelet VolumeNovember 2024 10:10am December 26, 2024 10:10am11.8 fL9.5-13.5Urine Leukocyte EsteraseNov2024 9:49amNove2024 9:49amLARGEAbnormal (applies to non-numeric results)NEGATIVECarbon Dioxide LevelNovhopi health care center 2024 10:10amNove2024 10:10am30.8 mmol/L21.0-32.0Platelet CountNovhopi health care center 2024 10:10am December 26, 2024 10:27tq212 10 3/bA947-590Yatca NitriteNov2024 9:49amNove2024 9:49amNEGATIVENEGATIVECreatinineNov2024 10:10amNove2024 10:10am1.27 mg/dLAbove high normal0.55-1.02Red Blood CountNovhopi health care center 2024 10:10amNove2024 10:10am4.83 10 6/uL4.20-5.40 Urine pHNov2024 9:49amNoveer 2024 9:49am6.05.0-9.0Estimated GFR ()December 26, 2024 10:10amNove2024 10:10am50 Below low normal>=60 mL/min/1.73m 2Red Cell Distribution WidthNovember 2024 10:10amNove2024 10:10am14.5 %11.0-15.0Urine ProteinNovember 2024 9:49amNovember 2024 9:49amTRACE mg/dLNEG/TRACEEstimated GFR (Non- AmericanNov2024 10:10amNove2024 10:10am41 Below low normal>=60 mL/min/1.73m 2Corrected White Blood CountNov2024 10:10amNoveer 2024 10:10am7.2 10 3/uL4.0-11.0Urine Specific [place] December 26, 2024 9:49amNovember 2024 9:49am1.0151.005-1.025Glucose LevelNovhopi health care center 2024 10:10amNoveer 2024 10:62ju565 mg/dLAbove high ouimoi23-283Jxcmq UrobilinogenNovhopi health care center 2024 9:49amNoveencompass health rehabilitation [facility] 2024 9:49am0.2 EU/dL0.2-1.0Potassium LevelNovhopi health care center 2024 10:10amNoveencompass health rehabilitation hospital [facility] 2024 10:10am4.0 mmol/L3.5-5.1Sodium LevelNovhopi health care center 2024 10:10amNoveencompass health rehabilitation hospital [facility] 2024 10:77ix254 mmol/U251-828Sucysufehl LevelNovhopi health care center 2024 10:10am December 26, 2024 10:10am3.9 mg/dL2.6-4.7 Vital Signs Vital Reading Result Reference Range Collection Date/Time Height 62 [in_i] January 02, 2025 9:13xjOkrtpu97.94 kgNov2024 9:13amHeart Rate88 /dmy84-817GmoxcgmdJanuary 02, 2025 9:13amRespiratory rate16 /emp05-40HrywvlglJanuary 02, 2025 9:13amOxygen saturation by Pulse vuswxqtd319 %95-100January 02, 2025 9:13amBP Surduysc937 mm[Hg]100-140Nov2024 9:13amBP Wcpfqzvfv51 mm[Hg]60-100Nov2024 9:13amBMI (Body Mass Index)27.8 kg/j3WgczlkurJanuary 02, 2025 9:13am Advance Directives Advance Directive Response Recorded Date/ Time Advance Directives No April 19 3:20pm Insurance Providers Guarantor Jade Ruben Pricila Address [address] [address] Info.Home Phone: Coverage Status Update:2024 Payer Group Member ID Coverage Type Subscriber Relationship to Subscriber Effective Date Expiration Date Brady SHEA/HOANG Id: [id number] Nitschke , SR Id: [id number] [address] [address] Home Phone: [employer] MCR PFFS Id: [id number] Ruben Pricila Id: [id number] [address] [address] Home Phone: [facility] PFFS Id: [id number] Ruben Pricila Id: [id number] [address] [address] Home Phone: Self Encounters Encounter Location(s) Arrival/Admit Date Discharge/Departure Date Discharge/Departure Disposition Provider(s) Non-patient / Non-visit -[facility] Cheryl Leblanc December 26, 2024 10:10am KYLAH Mayeparted Physician/Provider Office Visit-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 Unknown January 02, 2025 9:12am Hypercalcemia Unknown January 02, 2 025 9:12am Hyperlipemia Unknown January 02, 2 025 9:12am Hypertensive nephropathy Unknown Novembe r 2024 9:12am Obesity Unknown January 02, 2 025 9:12am Assessments Diagnosis Onset Date Resolution Status Admit Date Chronic kidney disease, stage 3b acuteNovember 25th, 2025 9:12amDiabetic nephropathy associated with type 2 diabetes mellitusacuteJanuary 02, 2025 9:12amHypercalcemiaacuteJanuary 02, 2025 9:12amHyperlipemiaacuteJanuary 02, 2025 9:12amHypertensive nephropathy acuteNov2024 9:12amObesityacuteJanuary 02, 2025 9:12am Plan of Treatment Author Ramsey Steward [facility]January 02, 2025 9:29amPatient follows with Dr. Hatfield in primary care office for diabetes management. Last hemoglobin A1c remains below 7%. I explained the patient the necessity of controlling diabetes to preserve kidney function. Likely from hypertensive and diabetic nephropathy.Serum creatinine fluctuate between 1.0 to 1.3 mg/dL and GFR between 40 and 55 ml/min/1.7 m2.UA is benign except l Protein to creatinine ratio 150-350 mg/g. Patient is already on max dose of losartan.I explained the patient that necessity of controlling diabetes and hypertension to preserve kidney function.Advised the patient to avoid all NSAIDs and to keep good hydration. I will follow-up with the patient in 6 months LDL goal below 100 to reduce cardiovascular disease and CKD patient. Patient is on statin. She follows with her PCP. Blood pressure target is below 130/80. Will continue same BP medications losartan and amlodipine. Advised the patient to follow low Na diet and to monitor BP at home. Patient lost 15 pounds since last admission. Advised weight loss to slow CKD progression resolved with stopping Ca supplement . Future Tests Future scheduled test information is unavailable Pending Tests Test Name Ordered Date Scheduled Date Renal Function Panel January 02, 2025 9:28am 9 Months Future Visits Future appointment information is unavailable Future Procedures Procedure Name Ordered Date Scheduled Date Hemogram CBC Without Diff January 02, 2025 9: 28am 9 Months Magnesium January 02, 2025 9:28am 9 Mon ths Protein Creat Ratio Ur Random January 02 9:28am 9 Months Parathyroid Hormone Intact January 02, 2025 9 :28am 9 Months Uric Acid January 02, 2025 9:28am 9 Mon ths Vitamin D 25 Hydroxy Total January 02, 2025 9 :28am 9 Months Future Medications Future medication information is unavailable Patient Instructions Patient instructions are unavailable
--- NOTE | 2025-01-03 13:11 | MM_ITS ---
Patient Name: NETTA DAWSON MR#: [id number] : 1950 Exam Date: 01/03/2025 Ordering Doctor: NON-STAFF PHYSICIAN RADIOLOGY REPORT PROCEDURE: MM TOMOSYNTHESIS SCREENING BI COMPARISON: MM TOMOSYNTHESIS SCREENING BI, 01/03/2024. MM TOMOSYNTHESIS SCREENING BI, 12/30/2022. MG MAMM SCREEN 3D LESIA CAD, 12/01/2021. MG MAMM LESIA SCRN W CAD DIG, 04/17/2013. INDICATIONS: Screening Calculator Name NCI Breast Cancer Risk Assessment Tool 5 Year Breast Cancer Risk 1.50% Lifetime Breast Cancer Risk 3.10% Personal Breast Cancer No Personal Ovarian Cancer No Treatments None Family Cancers None LOCATION: [facility] BREAST COMPOSITION: There are scattered areas of fibroglandular density. FINDINGS: DIAGNOSTIC CATEGORY 1--NEGATIVE. RIGHT BREAST: No significant suspicious finding. LEFT BREAST: No significant suspicious finding. RECOMMENDATIONS: ROUTINE MAMMOGRAM AND CLINICAL EVALUATION IN 12 MONTHS. Dictated by: Tomasz Carrasco DO on 01/03/2025 at 14:46 Approved by: Tomasz Carrasco DO on 01/03/2025 at 14:48
== END 2025-01-03 13:09 | disposition home or self-care (01) ==
LOC: MAMMO 13:08
DX: Z12.31 Encounter for screening mammogram for malignant neoplasm of breast (principal)
CPT/HCPCS: 77063; 77067

== ENCOUNTER 2025-01-19 09:05 | Outpatient (OUT) | payer MEDICARE, SELFPAY ==
--- OUTSIDE RECORDS SUMMARY | 2025-01-19 09:20 | XMS_ITS | CCD ---
Author Organization [facility] Care Team Providers Care [employer] Finisher Name Role Phone Domonique Hatfield Unavailable Unavailable Unavailable [facility] Consulting MIKEY [...] Care Unavailab le McGuinn II, Dr. Zak Kenadll Attending Unavailable McGuinn II, Dr. Zak Kendall [...] ., DR DOMONIQUE Cuevas Primary Care Unavailable PHILLIPS, DR JAVAD Katz Consulting Unavailable HATFIELD ., [...] Attending Unavailable Dewayne Richey. Admitting Unavailable Denia Roewll Attending Unavailable Denia Rowell Attending Unavailable Denia Rowell Attending Unavailable Denia Rowell Attending Unavailable Rowell, Denia L Attending Unavailable Rowell, Denia L Attending Unavailable Mat Dewayne E. Attending Unavailable Mat, Dewayne ERodger Admitting Unavailable Dewayne Richey ERodger Attending Unavailable Dewayne Richey MD Primary Care Provider [phone] GARY CHÁVEZ Attending Unavailable HATFIELDDOMONIQUE MANUEL LETTY [...] Unavailable Mat Dewayne E. Attending Unavailable Jennifer, HI TEACHER Pilar L Attending Unavailable Rowell, Denia L Attending Unavailable Rowell, Denia L Attending Unavailable Rowell, Denia L Attending Unavailable Rowell, Denia L Attending Unavailable Rowell, Denia L Attending Unavailable Rowell, Denia L Attending Unavailable Rowell, Denia L Attending Unavailable Rwoell, Denia L Attending Unavailable Rowell, Denia L Attending Unavailable Rowell, Denia L Attending Unavailable Rowell, Denia L Attending Unavailable Rowell, Denia L Attending Unavailable Rowell, Denia L Attending Unavailable Mat, Dewayne E. Attending Unavailable Mat, Dewayne E. Attending Unavailable Mat, Dewayne E. Attending Unavailable aMt, Dewayne E. Attending Unavailable UVALDO, DOMINIC A Attending Unavailable UVALDO, DOMINIC A Admitting Unavailable UVALDO, DOMINIC A Attending Unavailable Rowell, Denia L Attending Unavailable Rowell, Denia L Attending Unavailable UVALDO, DOMINIC A Admitting Unavailable UVALDO, DMOINIC A Attending Unavailable UVALDO, DOMINIC A Attending Unavailable UVALDO, DOMINIC A Attending Unavailable UVALDO, DOMINIC A Admitting Unavailable UVALDO, DOMINIC A Attending Unavailable UVALDO, DISTANCE EDUCATION FACULTY LIAISON DOMINIC A Attending Unavailabl e UVALDO, YANY Dumont Admitting Magdalena Maher Attending Unavailable Magdalena Michelle Attending Unavailable Allergies Allergy ClassificationReported Allergen(s)Allergy TypeDate of OnsetReaction(s) Facility (20 sources)Diclofenac / miSOPROStol; Translations: [diclofenac-misoprostol]Drug AllergyUnknown (qualifier value)[facility] (5 sources)Diclofenac / miSOPROStol; Translations: [Arthrotec][facility] ([facility])No Known Medication Allergies; Translations: [No Known Medication Allergies]Propensity to adverse reactions (disorder)[facility] Medications Current Medications MedicationDrug Class(es)DatesSig (Normalized)Sig (Original)amLODIPine 5 mg oral tablet (20 sources)Dihydropyridine Calcium Channel BlockerStart: 18-93-7145rzye 0.5 tablet by mouth once dailyamLODIPine 10 mg Tab See Instructions, 1/2 tab(s) Oral Daily, Refills(s) 0 Start Date: 05/25/22 Status: OrderedStart: 40-63-3887tzwd 5 mg by mouth once dailyamlodipine 5 [...] sources)Platelet Aggregation Inhibitor, Nonsteroidal Anti-inflammatory Drug Start: 52-79-4265lgoo 1 tablet by mouth once dailyaspirin 81 mg Oral EC Tab 81 mg = 1 tab(s), Oral, Daily, Refills(s) 0 Start Date: 05/25/22 Status: Ordered Start: 90-34-9778xrvn 1 tablet by mouth once dailyAspirin 81 mg Tablet,Chewable Active 81 MG PO Daily November 27, 2019 11:00pmbiotin 1 mg chewable tablet (19 sources)Start: 31-85-3329wbip 1 tablet by mouth once dailyBiotin 1,000 [...] mg extended release oral tablet (6 sources)AminoketoneStart: 98-54-2313unrg 1 tablet by mouth once daily buPROPion 300 mg/24 hours ER Tab 300 mg = 1 tab(s), Oral, Daily, # 90 tab(s), Refills(s) 1, Pharmacy: [id number], 158, cm, 03/28/24 15:03:00 EST, Height/Length Dosing, 77.1, kg, 03/28/24 15:03:00 EST, Weight Dosing Start Date: 03/31/24 Status: OrderedStart: 35-68-0313cbty 1 tablet by mouth once daily in the morningWellbutrin XL 150 mg 24 hr tablet Take 1 tablet (150 mg) by mouth once daily in the morning. 01/17/2024 ActiveStart: 62-38-1346vnsx 1 tablet by mouth every twenty-four hoursWellbutrin XL 150 mg/24 hours Tab-ER 150 mg = 1 tab(s), Oral, q24hr, # 90 tab(s), Refills(s) 0, Pharmacy: [facility], 158, cm, 01/17/24 9:38:00 EST, Height/Length [...] bark 500 mg oral capsule (15 sources)Start: 41-35-9177xfjm 1 capsule by mouth once dailyCinnamon Bark [...] tablet (20 sources)P2Y12 Platelet InhibitorStart: 12-11-2020 End: 64-56-1253qydy 1 tablet by mouth once dailyclopidogrel 75 mg Tab 75 mg = 1 tab(s), Oral, Daily, Refills(s) 0 Start Date: 05/25/22 Status: Ordered escitalopram 5 mg oral tablet (10 sources)Serotonin Reuptake InhibitorStart: 73-24-9908pttz 1 tablet by mouth once dailyLexapro 5 mg oral tablet 5 mg = 1 tab(s), Oral, Daily, # 90 tab(s), Refills(s) 0, Pharmacy: [facility], 158, cm, 09/27/23 13:00:00 EDT, Height/Length Dosing, 77.8, kg, 09/27/23 13:00:00 EDT, Weight Dosing Start Date: 09/27/23 Status: OrderedFoltanx oral tablet (14 sources)Start: 42-49-1551Ffkzrua oral tablet 1 tab(s), Oral, Daily, 90 tab(s), Refill(s) 0, [id number], 158, cm, 03/30/23 10:02:00 EST, Height/Length Dosing, 82.6, kg, 03/30/23 10:02:00 EST, Weight Dosing Start Date: 03/30/23 Status: OrderedStart: 14-58-4117Bqjdvav oral tablet 1 tab(s), Oral, Daily, 90 tab(s), Refill(s) 0, [facility] #[id number], 158, cm, 12/21/22 13:46:00 EST, Height/Length Dosing, 81.6, kg, 12/21/22 13:46:00 EST, Weight Dosing Start Date: 12/22/22 Status: OrderedFreestyle Sam 2 Flash Glucose Monitoring 14 Day System (Sensor) (20 sources)Start: 31-02-2464Mshledzlm Sam 2 Flash Glucose Monitoring 14 Day [...] EDT, Weight Dosing Start Date:11/12/23 Status: OrderedStart: 35-46-1991Fkiqgzjru Sma 2 Flash Glucose Monitoring 14 Day System (Sensor) Freestyle Sam 2 Flash Glucose Monitoring 14 Day System (Sensor), See Instructions, 6 EA, 0, Freestyle Sam 2 Flash Glucose Monitoring 14 Day System (Sensor). Replace sensor every 14 days., [facility], Supply, 158, cm, 07/20/23 13:42:00 EDT, Height/Length Dosing, 79.3, kg, 07/20/23 13:55:00 EDT, Weight Dosing Start Date:08/17/23 Status: OrderedStart: 08-98-9587Bgumylnbn Sam 2 Flash Glucose Monitoring 14 Day System (Sensor) Freestyle Sam 2 Flash Glucose Monitoring 14 Day System (Sensor), See Instructions, 6 EA, 0, Freestyle Sam 2 Flash Glucose Monitoring 14 Day System (Sensor). Replace sensor every 14 days., [facility] #[id number], Supply, 158, cm, 03/30/23 10:02:00 EST, Height/Length Dosing, 82.6, kg, 03/30/23 10:02:00 EST, Weight Dosing Start Date: 04/20/23 Status: OrderedJorge KwgaloPen (1 source)HumaLOG KwikPen Active3 ml insulin glargine 100 unt/ml pen injector (20 sources)Insulin AnalogStart: 09-95-4294Nivtud Solostar Pen 100 units/mL subcutaneous solution See Instructions, INJECT SUBCUTANEOUSLY 15 UNITS ONCE DAILY AT BEDTIME, # 15 mL, Refills(s) 3, Pharmacy: [facility], 158, cm, 09/27/23 13:00:00 EDT, Height/Length Dosing, 77.8, kg, 09/27/23 13:00:00 EDT, Weight Dosing Start Date: 10/29/23 Status: OrderedStart: 13-91-4931vdtgpe 15 [IU] by subcutaneous injection once daily in the eveningInsulin Glargine (Lantus U- 100 Insulin) 100 unit/mL solution Active 15 UNIT SUBCUT Every evening September 28, 2023 9:35amStart: 31-02-8535Qjxiok Solostar U-100 Insulin 100 unit/mL (3 mL) pen Inject 15 Units under the skin once daily at bedtime. 05/19/2023 Active Start: 03-89-9909Msypjo Solostar Pen 100 units/mL subcutaneous solution 15 unit(s), SubCutaneous, Once a day (at bedtime), # 15 mL, Refills(s) 3, Pharmacy: [facility] ([facility]), 157.5, cm, 10/05/22 16:38:00 EDT, Height/Length Dosing, 82.4, kg, 10/05/22 16:38:00 EDT, Weight Dosing Start Date: 10/21/22 Status: OrderedStart: 87-52-5008Iibepe Solostar Pen 100 units/mL subcutaneous solution 15 unit(s), SubCutaneous, Once a day (at bedtime), Refills(s) 0 Start Date: 05/25/22 Status: OrderedStart: 11-26-2019 End: 88-01-0673zbmipj 20 [IU] by subcutaneous injection twice dailyInsulin [...] 100 unt/ml pen injector (20 sources)Insulin AnalogStart: 90-48-1846FreyRIW KwikPen 100 units/mL injectable solution See Instructions, INJECT SUBCUTANEOUSLY BEFORE MEALS & AT BEDTIME COVERAGE 150-200 2U, 201-250 4U, 251-300 6U. 301-350 8U. 351-400 10U WITH CARB COVERAGE, # 45 mL, Refills(s) 3, Pharmacy: [facility], 158, cm, 09/27/23 13:00:00 EDT, Height/Length Dosing, 77.8, kg, 09/27/23 13:00:00 EDT, Weight Dosing Start Date: 10/12/23 Status: OrderedStart: 80-29-8797HsnkKXE KwikPen 100 units/mL injectable solution See Instructions, AC & HS coverage 150- 200 2U,201-250 4U, 251-300 6U. 301-350 8U. 351-400 10U with carb coverage, # 15 EA, Refills(s) 3, Pharmacy: [facility] ([facility]), 157.5, cm, 10/05/22 16:38:00 EDT, Height/Length Dosing, 82.4, kg, 10/05/22 16:38:00 EDT, Weight Dosing Start Date: 12/01/22 Status: OrderedStart: 70-88-0616WbbcNDZ KwikPen 100 units/mL injectable solution See Instructions, AC & HS coverage 150- 200 2U,201-250 4U, 251-300 6U. 301-350 8U. 351-400 10U with carb coverage, Refills(s) 0 Start Date: 05/25/22 Status: OrderedStart: 11-26-2019 End: 53-95-8344Ahorjbh Lispro (Humalog Kwikpen Insulin) 100 unit/mL insulin pen Active 0 UNIT SUBCUT Before meals and at bedtime November 25, 2019 11:00pm Please contact the information source for Protocol details.HumaLOG KwikPen Insulin 100 unit/mL injection Inject under the skin 3 times daily (morning, midday,late afternoon). Per sliding scale ActiveHumaLOG KwikPen 100 UNIT/ML as directed Subcutaneous SLIDING SCALE ZrkbruT-Lqbqupbfszru-A6-B12 3-35-2 MG (4 sources)take 1 tablet by mouth twice ombffA-Mgzibgxbodqz-Q2-B12 3-35-2 MG 1 tablet Orally Twice a day Activelatanoprost 0.05 mg/ml ophthalmic solution (20 sources)Prostaglandin AnalogStart: 21-36-2059itdq 1 drop(s) into the eye(s) once daily in the eveningLatanoprost 0.005 % drops Active 1 DROPS OPHTHALMIC Every evening September 27, 2023 11:00pmStart: 70-23-2616wgqe 1 drop(s) into the eye(s) once daily in the eveningLatanoprost Active 1 DROPS OPHTHALMIC Every evening September 28, 2023 12:00amStart: 32-28-2088xoavzsxgjmo Opth 0.005% Gunjan 1 drop(s), INSERT 1 drop IN BOTH EYES AT BEDTIME Start Date: 07/20/23 Status: OrderedStart: 26-13-7202ywze 1 drop(s) into the eye(s) at bedtimelatanoprost (Xalatan) 0.005 % ophthalmic solution INSERT 1 drop IN BOTH EYES AT BEDTIME 07/13/2023 Activelosartan potassium 100 mg oral tablet (20 sources)Angiotensin 2 Receptor BlockerStart: 18-15-0422dcdn 1 tablet by mouth once dailylosartan 100 mg Tab See Instructions, TAKE 1 TABLET BY MOUTH DAILY, # 90 tab(s), Refills(s) 3, Pharmacy: [facility], 158, cm, 06/29/23 10:10:00 EDT, Height/Length Dosing, 79.5, kg, 06/29/23 10:10:00 EDT, Weight Dosing Start Date: 07/14/23 Status: OrderedLosartan Potassium 50 MG Orally qhs Activelutein 20 mg / zeaxanthin 1 mg oral capsule (15 sources)Start: 52-46-2626wmbt 1 capsule by mouth once dailyLutein-Zeaxanthin 20 mg- 1,000 mcg capsule Active 1 CAP PO daily September 27, 2023 11:00pmLutein- Zeaxanthin 25-5 MG as directed Orally ONCE A DAY ActiveLutein-Zeaxanthin 25-5 MG as directed Orally ONCE A DAY ActiveLutein-Zeaxanthin ActiveMultivitamin preparation (6 sources)Start: 06-72-1620zrkv 1 tablet by mouth once dailyMultivitamin Active 1 TAB PO Daily September 28, 2023 12:00amtake 1 tablet by mouth once daily Multivitamin - 1 tablet Orally Once a day ActiveMultivitamin ActiveMultivitamin tablet (1 source)Start: 73-99-4878kfdb 1 tablet by mouth once dailyMultivitamin tablet Active 1 TAB PO Daily September 27, 2023 11:00pmmv-mn/folic ac/calcium/vit K1 (WOMEN'S 50 PLUS MULTIVITAMIN ORAL) (1 source)take 1 tablet by mouth once daily before mealtimemv-mn/folic ac/calcium/vit K1 (WOMEN'S 50 PLUS MULTIVITAMIN ORAL) Take 1 tablet by mouth once daily. Activenitroglycerin 0.4 mg sublingual tablet (20 sources)Nitrate VasodilatorStart: 53-47-9483AbjrnJeut 0.4 mg Tab See Instructions, use as needed for chest pain, # 25 tab(s), Refills(s) 0, Pharmacy: [facility], 158, cm, 03/30/23 10:02:00 EST, Height/Length Dosing, 82.6, kg, 03/30/23 10:02:00 EST, Weight Dosing Start Date: 03/30/23 Status: OrderedStart: 81-31-8612PjnlaHhky 0.4 mg Tab See Instructions, use as needed for chest pain, Refills(s) 0 Start Date: 05/25/22 Status: OrderedStart: 15-45-2968Ibhwvhzbgnqmt 0.4 mg tablet, sublingual Active 0.4 MG SUBLINGUAL Q5M as needed for chest pain 25 30October 2019 11:00pm do not exceed 3 doses per episodeNitroglycerin ActivePen Cecil (20 sources)Start: 43-97-5673Bsz Cecil Pen Cecil, See Instructions, 3 EA, 3, To be used with admin. of insulin QID. Dx: E11. 1ea equals 1box, [facility], [facility], 158, cm, 07/20/23 13:42:00 EDT, Height/Length Dosing, 79.3, kg, 07/20/23 13:55:00 EDT, Weight Dosing Start Date: 08/11/23 Status: Ordered Start: 13-61-7080Kqm Cecil Pen Cecil, See Instructions, 12 EA, 1, To be used with admin. of insulin QID. Dx: E11. 1 EA equals 1box, [facility], [facility], 158, cm, 12/21/22 13:46:00 EST, Height/Length Dosing, 81.6, kg, 12/21/22 13:46:00 EST, Weight Dosing Start Date: 02/22/23 Status: OrderedStart: 73-49-6100Fqj Cecil Pen Cecil, See Instructions, 1 EA, 1, To be used with admin. of insulin QID. Dx: E11 1ea equals 1box, [facility], Supply, 158, cm, 12/21/22 13:46:00 EST, Height/Length Dosing, 81.6, kg, 12/21/22 13:46:00 EST, Weight Dosing Start Date: 02/22/23 Status: OrderedStart: 03-13-1576Aie Cecil Pen Cecil, See Instructions, 300 EA, 1, To be used with admin. of insulin QID. Dx: E11., [facility], [facility], 158, cm, 12/21/22 13:46:00 EST, Height/Length Dosing, 81.6, kg, 12/21/22 13:46:00 EST, Weight Dosing Start Date: 01/05/23 Status: Orderedrosuvastatin calcium 20 mg oral tablet (20 sources)HMG-CoA Reductase InhibitorStart: 45-17-4708bcbd 1 tablet by mouth once dailyrosuvastatin 20 mg Tab 20 mg = 1 tab(s), Oral, Daily, Refills(s) 0 Start Date: 05/25/22 Status: OrderedRosuvastatin Calcium ActiveSITagliptin 25 mg oral tablet (20 sources)Dipeptidyl Peptidase 4 InhibitorStart: 87-90-3085rzes 4 tablets by mouth once dailySitagliptin Phosphate (Januvia) 25 mg tablet Active 100 MG PO Daily March 14, 2024 10:29amStart: 03-14-2024 End: 24-83-5916qttq 1 tablet by mouth once dailySitagliptin Phosphate (Januvia) 25 mg tablet Discontinued 25 MG PO Daily March 14, 2024 12:00amFebruary 2024 10:29amStart: 11-26-2019 End: 57-58-4114xqfj 1 tablet by mouth once dailyJanuvia 100 mg Tab See Instructions, TAKE 1 TABLET BY MOUTH DAILY, # 90 tab(s), Refills(s) 3, Pharmacy: [facility], 158, cm, 09/27/23 13:00:00 EDT, Height/Length Dosing, 77.8, kg, 09/27/23 13:00:00 EDT, Weight Dosing Start Date: 10/19/23 Status: OrderedJanuvia ActivetraZODone hydrochloride 50 mg oral tablet (20 sources)Serotonin Reuptake InhibitorStart: 90-63-6444Hfxeynhff 50 mg tablet Active 25 MG PO Daily at bedtime September 27, 2023 11:00pmStart: 09-08-1823gyau 25 mg by mouth once daily at bedtimeTrazodone Active 25 MG PO Daily at bedtime September 28, 2023 12:00amStart: 07-00-2108qjae 0.5 tablet by mouth once daily at [...] Weight Dosing Start Date: 06/29/23 Status: OrderedStart: 27-05-6109nmhUVPTUN 50 mg Tab 25 mg = 0.5 tab(s), Oral, Once a day (at bedtime), # 15 tab(s), Refills(s) 0, Pharmacy: [facility] #[id number], 158, cm, 03/30/23 10:02:00 EST, Height/Length Dosing, 82.6, kg, 03/30/23 10:02:00 EST, Weight Dosing Start Date: 06/07/23 Status: OrderedStart: 10-47-1749afkRVEOCB 50 mg Tab 25 mg = 0.5 tab(s), Oral, Once a day (at bedtime), # 15 tab(s), Refills(s) 0, Pharmacy: [facility], 158, cm, 03/30/23 10:02:00 EST, Height/Length [...] oral tablet (7 sources)Tricyclic AntidepressantStart: 11-26-2019 End: 24-02-6637cljd 2 tablets by mouth once daily at bedtimeAmitriptyline 25 mg tablet Discontinued 50 MG PO Daily at bedtime November 25, 2019 11:00pm September 28, 2023 9:35amStart: 11-26-2019 End: 62-56-6463gexx 50 mg by mouth once daily at [...] tablet (2 sources)HMG-CoA Reductase InhibitorStart: 11-26-2019 End: 56-14-7769sdev 1 tablet by mouth once daily at bedtimeAtorvastatin 20 mg tablet Discontinued 20 MG PO Daily at bedtime November 25, 2019 11:00pm September 28, 2023 9:36amCalcium (9 sources)Phosphate Binder, CalciumCalcium 600 TABS TAKE 1 TABLET DAILY. Quantity: 0 Refills: 0 Ordered: 05-Dec-2021 DO ActiveCalcium Activecanagliflozin 100 mg oral tablet (3 sources)Sodium-Glucose Cotransporter 2 InhibitorStart: 11-26-2019 End: 31-36-2243egkw 1 tablet by mouth once daily in the morningCanagliflozin (Invokana) 100 mg tablet Discontinued 100 MG PO Every morning November 25, 2019 11:00pm September 28, 2023 9:36amInvokana ActiveKetorolac (8 sources)Nonsteroidal Anti-inflammatory Drug, Cyclooxygenase InhibitorStart: 60-81-2467Isgtdnz per 15 mg Apr, 15 mgStart: 97-93-3329Sdffqgl per 15 mg Jan, 30 lzL-Bwlaepsnfdmo-M9-B12 3-35-2 MG Oral Tablet (8 sources)take 1 tablet by mouth once zphcaP-Emmvspqyjqyz-R2-B12 3-35-2 MG Oral Tablet Take 1 tablet daily Quantity: 0 Refills: 0 Ordered: 22-Jul-2021 DO HrdyfhC-Wkmpbxjsxgxe-T2-B12 3-35-2 MG TABS (4 sources)X-Fulnpnlfvefk-U2-B12 3-35-2 MG TABS Take 1 tablet daily Quantity: 0 Refills: 0 Ordered: 22-Jul-2021 DO Activemeclizine hydrochloride 12.5 mg oral tablet (20 sources)AntiemeticStart: 11-28-2019 End: 37-51-5378pihj 1 tablet by mouth three times daily as needed for dizziness Meclizine 12.5 mg tablet Discontinued 12.5 MG PO Three times daily as needed for dizziness 90 November 27, 2019 11:00pm September 28, 2023 9:36amMeclizine HCl ActiveMecobal-Levomefolat Ca-B6 Phos (S-Ussoza-I4-B12) 3-35-2 mg tablet (2 sources)Start: 11-26-2019 End: 55-23-8557ocwa 1 tablet by mouth once daily in the morningMecobal- Levomefolat Ca-B6 Phos (I-Mkksxn-L0-B12) 3-35-2 mg tablet Discontinued 1 TAB PO Every morning November 25, 2019 11:00pm September 28, 2023 9:36amStart: 11-26-2019 End: 63-54-0145ypnd 1 tablet by mouth once daily in the morningMecobal- Levomefolat Ca-B6 Phos (N-Biwahb-P6-B12) 3-35-2 mg tablet Discontinued 1 TAB PO Every morning November 26, 2019 12:00am September 28, 2023 10:36ammelatonin 10 mg oral capsule (12 sources)take 1 capsule by mouth at bedtimeCVS Melatonin 10 MG Oral Capsule TAKE 1 CAPSULE Bedtime Quantity: 0 Refills: 0 Ordered: 27-Dxu-2333RG Activetake 1 tablet by mouth once daily at bedtime as neededMelatonin 10 MG 1 tablet at bedtime as needed Orally Once a day ActiveMelatonin 3 MG 2 Orally qhs Fyhwcs60 hr metoprolol succinate 50 mg extended release oral tablet (9 sources)beta-Adrenergic BlockerStart: 69-54-9411Wqogyuzrpj Succinate ER 50 MG Oral Tablet Extended Release 24 Hour take 1/2 tablet daily for 2 weeks, then take 1/2 tablet every other day for 2 weeks, then discontiune. Quantity: 90 Refills: 0 Ordered: 27-Aug-2021 Zak Nguyen MD Start : 27-Aug-2021 Active Start: 11-28-2019 End: 30-21-3521mcag 1 tablet by mouth once daily in the morningMetoprolol Succinate 50 mg Tablet Extended Release 24 Hr Discontinued 50 MG PO Every morning November 27, 2019 11:00pm September 28, 2023 9:36amStart: 11-26-2019 End: 11-26-3171iqbh 1 tablet by mouth once daily in the morningMetoprolol Succinate 25 mg tablet extended release 24 hr Discontinued 25 MG PO Every morning November 25, 2019 11:00pm November 28, 2019 2:42pmMetoprolol Succinate ActiveMulti Vitamin TABS (8 sources)Multi Vitamin TABS TAKE 1 TABLET DAILY. 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] 39-51-7975BevsdayRmzqycr disorders (20 sources)Complex posttraumatic stress disorder; Translations: [Posttraumatic stress disorder]Onset: 100418-95-0910BzwguhzOjrgiwenh-zexnjdv, conduct, and disruptive behavior disorders (7 sources)Attention deficit hyperactivity disorder, predominantly inattentive immi84-76-1420WtftuejNzhwjaaog-hqcfoln, conduct, and disruptive behavior disorders (10 sources)Compulsive yxwxrbbs64-66-4561TyphtlenQkkossg dysrhythmias (20 sources)Ventricular premature beats; Translations: [Other premature beats] Onset: [id number]zs on above:noted in 04/29/2023 Cardiology Consult Note page 4. added per [facility] policy.Chronic kidney disease (20 sources)Chronic kidney disease stage 3; Translations: [Chronic kidney disease, stage 3 unspecified]Onset: 054967-04-0520WgriqrgYozepnh on above: linked HTN with CKD per [facility] policy.Conditions associated with dizziness or vertigo (16 sources)Vertigo; Translations: [Dizziness and giddiness]Onset: 02-22-2023 93-77-0153QbkynddoKmjzlgak atherosclerosis and other heart disease (20 sources)Coronary arteriosclerosis; Translations: [Coronary atherosclerosis of unspecified type of vessel, [place] or graft]Onset: ChronicComment on above:noted in 04/29/2023 Cardiology Consult Note page 3. added per [facility] policy.Coronary atherosclerosis and other heart disease (2 sources)Coronary angioplasty status; Translations: [Coronary angioplasty status]Onset: 50-21-3609PdzkhcdkHozsekrc mellitus with complications (20 sources)Renal disorder due to type 1 diabetes mellitus; 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]Onset: 41-36-6608SfksigyXhmmqyr on above:linked DM with gastroparesis per [facility] policy.Diabetes mellitus without complication (20 sources)Diabetes mellitus; Translations: [Diabetes mellitus without mention of complication, type II or unspecified type, not stated as uncontrolled]Onset: 65-97-1086XezotgpTctmjmo on above:linked DM with CKD per [facility] policy.linked DM with HLD per [facility] policy.Disorders of lipid metabolism (20 sources)Hyperlipidemia; Translations: [Other and unspecified hyperlipidemia] Onset: 72-93-9407NpyukvtJaxfwsjoja disorders (20 sources)Gastroesophageal reflux otugyzq67-65-8858QsyrsbjXqhlijbpa hypertension (20 sources)Benign essential hypertension; Translations: [Benign essential hypertension]Onset: 13-42-6298RepgkyoXqhfwke on above:noted in 04/29/2023 Cardiology Consult Note page 3. added per [facility] policy.Hypertension with complications and secondary hypertension (5 sources)Hypertensive chronic kidney disease with stage 1 through stage 4 chronic kidney disease, or unspecified chronic kidney disease; Translations: [Hypertensive renal disease]Onset: 092917-59-4450DtmmibfMfosndazjuq chest pain (2 sources)Chest pain; Translations: [Chest pain, unspecified]65-53-0624Vxdecgjn Other bone disease and musculoskeletal deformities (20 sources)Hrfbqaodwg45-82-2553EjtmzoirTfbmy diseases of kidney and ureters (1 source)Cyst of kidney, acquired; Translations: [CYST OF KIDNEY ACQUIRED] Onset: 01-66-3451LdafbizvYafqa disorders of stomach and duodenum (18 sources)Gastroparesis ihwnkcfk31-79-0440WyqojsbpZmzoz gastrointestinal disorders (1 source)Kjkfmexjezzz69-74-2971ZxvjgrfeMkdvv lower respiratory disease (2 sources)Dyspnea; Translations: [Shortness of breath]51-53-0432AnyosrjwXzhlp nutritional; endocrine; and metabolic disorders (15 sources)Obesity; Translations: [Obesity, unspecified]48-73-6749QjcqseiDyexx nutritional; endocrine; and metabolic disorders (20 sources)Body mass index 30+ - obesity; Translations: [Body mass index (BMI) 32.0-32.9, adult]Onset: 361459-56-2429UoukriwHbpdr nutritional; endocrine; and metabolic disorders (2 sources)Hypercalcemia; Translations: [Hypercalcemia]66-06-1857YnnbplbKeyha nutritional; endocrine; and metabolic disorders (2 sources)Hypercalcemia; Translations: [Hypercalcemia]40-45-4154KvjgicrAuzwk nutritional; endocrine; and metabolic disorders (2 sources)Obesity, unspecified; Translations: [Obesity, unspecified]09-28-2023 ChronicOther nutritional; endocrine; and metabolic disorders (2 sources)Body mass index (BMI) 32.0-32.9, adult; Translations: [Body mass index (BMI) 32.0-32.9, adult]Onset: 91-67-4361OuceukvUqnxn screening for suspected conditions (not mental disorders or infectious disease) (6 sources)Encounter for screening mammogram for malignant neoplasm of breast; Translations: [Cardiovascular stress test abnormal]Onset: 65-89-5962Uphihqwu Residual codes; unclassified (2 sources)Sleep apnea; Translations: [Sleep apnea, unspecified]11-26-2019 ChronicResidual codes; unclassified (20 sources)Zyayhfoy13-08-4699AepvpqpgUoifjgir codes; unclassified (2 sources)Never smoked tobacco; Translations: [Other specified health status] Onset: 604571-33-5964MwxoguiiDiegnhrt codes; unclassified (2 sources)Other specified health status; Translations: [Other specified health status]Onset: 17-14-6560BrxeobdmQfdgcgidgmhj (3 sources)CHRN KIDNEY DISEASE STG 3 UNSP; Translations: [CHRN KIDNEY DISEASE STG 3 UNSP]Onset: 49-09-1653Oczahelmlqoj (17 sources)Long-term current use of vamybsd74-18-8401Gxyyask on above:Current Medication List includes Lantus. added per OP CDI policy.Unclassified (1 source)Baa-oegxgr00-74fcjjtr14-02-3587Jaopf infection (5 sources)Postherpetic neuralgia; Translations: [Other postherpetic nervous system involvement]Episodic Past or Other Problems Problem ClassificationProblemDateDocumented DateEpisodic/ChronicChronic kidney disease (4 sources)Chronic kidney disease; Translations: [CHRONIC KIDNEY DISEASE STAGE 3B]Onset: 16-38-6181Ezeg disorders (2 sources)Mood disordersOnset: 983070-19-5097Khbsa injuries and conditions due to external causes (1 source)Unspecified injury of lower back, initial encounter; Translations: [Injury of back, initial encounter S39.92XA]Onset: 11-18-2020 Resolved: 21-42-4706HsgcimeeRenlhmovytet (12 sources)Never smoked tobacco; Translations: [Never smoker]Unclassified (1 source)CHRN KIDNEY DISEASE STG 3 UNSP; Translations: [CHRN KIDNEY DISEASE STG 3 UNSP]Onset: 21-90-2576Jfraocfzipey (2 sources)Onset: 449528-72-7424Tvdoukkqxrhc (1 source)Prolonged grief disorder; Translations: [Prolonged grief disorder] Onset: 09-15-2023 Results Test NameValueInterpretationReference RangeFacilityFamily Medicine Office/Clinic Noteon 38-36-0852Rvdsmw Medicine Office/Clinic NoteFamily Medicine Office/Clinic Note HPI Staff Pt is presenting to establish care Establish Care: History: Any previous diagnosis: DM 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 Patient reported that she was diagnosed [...] Lab Miscellaneous-LC 2. 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 Ordered: [...] at subsequent visits. Ordered: (more content not included)...[facility] GeneralComment on above:Result Comment: Electronically Signed By: Magdalena [...] 14 Day System (Sensor)) Misc Prescription (Pen Cecil) amlodipine aspirin (aspirin 81 mg Oral EC [...] Appointments Wednesday 1:00 PM EST With: Where: [address] [address]- Wednesday 1:40 PM EST With: Magdalena Michelle DO Where: [address] [address]- You Need to Schedule the Following Appointments [...] every 14 days. Unchanged Misc Prescription (Pen Cecil) See instructions To be used with admin. [...] stress disorder Constipation 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 Diabetic gastroparesis [...] 3 chronic kidney dise (more content not included)...NormalMercy Memorial HospitalU Microalbon 10-31-2024U Microalb 0.7 mg/dLNormal0.0-1.9Mer[facility] Memorial HospitalComment on above:Performed By: #### [id number] #### [facility] [address], [place] [address]Kbxyhjelfh Visit Summaryon 28-86-2970Qxtbhstqjt Visit Summary Ambulatory Visit Summary JADE MCNULTY [...] 14 Day System (Sensor)) Misc Prescription (Pen Cecil) amlodipine aspirin (aspirin 81 mg Oral EC [...] Follow-Up Appointments Wednesday 1:00 PM EST Where: [place] [id number]- Someone Will Contact You Regarding These Appointments [facility] Referral, Orthopaedics, 10/30/24 13:14:00 EDT, Hand pain Medications What How Much When Why Instructions Changed buPROPion (buPROPion 300 mg/ 24 hours ER Tab) 1 Tablets By Mouth Every day Pickup at [facility] Changed buPROPion (buPROPion 300 mg/ 24 hours ER Tab) 1 Tablets By Mouth Every day Type 2 diabetes mellitus with stage 3 chronic kidney disease MDD (major depressive disorder), recurrent, in full remission Hand pain BMI 28.0-28.9,adult Nonsmoker Overweight (BMI 25.0-29.9) Pickup at [facility] Unchanged amlodipine 5 Milligram By Mouth [...] questions or concerns Unchanged Misc Prescription (Pen Cecil) See instructions To be used with admin. [...] Pharmacy Information [facility]: [address] [place] [address] [address] [place], [place] [id number] [phone] [facility]: [address], [place] [id number] [phone] Allergies No Known Medication Allergies Problems Ongoing - Any problem that you are currently receiving treatment for. Attention deficit disorder (ADD) Benign essential HTN Benign hypertension with chronic kidney disease, stage III BMI 28.0-28 (more content not included)...NormalFisher St. Agnes HospitalCBC w/ Auto Diffon 93-30-8330Omrkvugi Absolute0.1 E9/LNormal0.0-0.2Fisher St. Agnes HospitalComment on above:Performed By: #### [id number] #### [facility] [address], [place] [address]Xvmttyimz/100 WBC (Bld)1.2 %Normal0.0-2.0Mercy Memorial HospitalComment on above:Performed By: #### [id number] #### [facility] [address] [place] [address]Jog Absolute0.1 E9/LNormal0.0-0.5FMercy Health Kings Mills Hospital Comment on above:Performed By: #### [id number] #### [facility] [address] [place] [address]Gtoraaxewff/100 WBC (Bld)2.1 %Normal0.0-8.0Mer[facility] Memorial HospitalComment on above:Performed By: #### [id number] #### [facility] [address] [place] [address]Fajwxdcubjt distribution width (RBC) [Ratio]14.7 %High10.9-14.2 [facility] Memorial HospitalComment on above:Performed By: #### [id number] #### [facility] [address] [place] [address]Dcobtpzdzl (Bld) [Volume fraction]38.6 %Zjgfhs94.0-46.0[facility] Memorial HospitalComment on above:Performed By: #### [id number] #### [facility] [address] [place] [address]Palgtrmfhq (Bld) [Mass/Vol]12.8 g/eWOzkmzi07.0-16.0[facility] Memorial HospitalComment on above:Performed By: #### [id number] #### [facility] [address] [place] [address]Aislj Absolute1.8 E9/LNormal1.0-4.0[facility] Comment on above:Performed By: #### [id number] #### [facility] [address] [place] [address]Fubvvamidoc/100 WBC (Bld)24.4 %Ofddkh15.0-50.0[facility] Memorial HospitalComment on above:Performed By: #### [id number] #### [facility] [address], [place] [address]XUW (RBC) [Entitic mass]27.6 moPsjrxh28.0-34.0[facility] HospitalComment on above:Performed By: #### [id number] #### [facility] [address] [place] [address]CPFL (RBC) [Mass/Vol]33.1 g/uVYzsjup78.4-36.0[facility] Memorial HospitalComment on above:Performed By: #### [id number] #### [facility] [address] [place] [address]QFL (RBC) [Entitic vol]83.5 bQHwvxro62.0-100.0[facility] Memorial HospitalComment on above:Performed By: #### [id number] #### [facility] [address] [place] [address]Pnnl Absolute0.5 E9/LNormal0.2-1.0[facility] Comment on above:Performed By: #### [id number] #### [facility] [address] [place] [address]Qzyyxznly/100 WBC (Bld)7.1 %Normal4.0-14.0[facility] Memorial HospitalComment on above:Performed By: #### [id number] #### [facility] [address] [place] [address]Utpxft Absolute4.7 E9/LNormal2.0-7.5FMercy Health Kings [facility] Hospital Comment on above:Performed By: #### [id number] #### [facility] [address] [place] [address]Ksijyn Auto65.2 %Qaqdcw64.0-75.0[facility] Comment on above:Performed By: #### [id number] #### [facility] [address] [place] [address]Yewvbcgh080.0 E9/OJionoe811.0-500.0[facility] Comment on above:Performed By: #### [id number] #### [facility] [address], [place] [address]Zgkpijug mean volume (Bld) [Entitic vol]10.5 fLNormal6.4-10.8 [facility] HospitalComment on above:Performed By: #### [id number] #### [facility] [address], [place] [address]DUK4.6 E12/LNormal4.3-5.9[facility] Memorial HospitalComment on above:Performed By: #### [id number] #### [facility] [address], [place] [address]HXD0.2 E9/LNormal4.0-11.0[facility] Memorial HospitalComment on above:Performed By: #### [id number] #### [facility] [address], [place] [address]PXBsk 81-06-4645Cvbxnqg [Mass/Vol]4.1 g/dLNormal3.3-5.0[facility] Memorial HospitalComment on above:Performed By: #### [id number] #### [facility] [address], [place] [address]Xvpjewe/Globulin [Mass ratio]1.6 {ratio}Normal1.1-2.2FMercy Health Kings Mills HospitalComment on above:Performed By: #### [id number] #### [facility] [address], [place] [address]Roh Phos58 Int._Unit/RYwirzh41-94RxsdnuMercy Memorial Hospital Comment on above:Performed By: #### [id number] #### [facility] [address], [place] [address]FMA28 Int._Unit/LNormal6-46[facility] Memorial HospitalComment on above:Performed By: #### [id number] #### [facility] [address], [place] [address]Htesy gap [Moles/Vol]9 mmol/LNormal6-16[facility] Memorial HospitalComment on above:Performed By: #### [id number] #### [facility] [address], [place] [address]PYT79 Int._Unit/LNormal5-43[facility] Memorial HospitalComment on above:Performed By: #### [id number] #### [facility] [address], [place] [address]Hjck Total0.6 mg/dLNormal0.0-1.1FMercy Health Kings Mills Hospital Comment on above:Performed By: #### [id number] #### [facility] [address], [place] [address]QSU/Creat Ratio19 No DmkbcNijvke50-86EepzmkMercy Memorial HospitalComment on above:Performed By: #### [id number] #### [facility] [address], [place] [address]Gumaveu [Mass/Vol]10.1 mg/dLNormal8.9-11.1FMercy Health Kings Mills HospitalComment on above:Performed By: #### [id number] #### [facility] [address], [place] [address]Ufkxmnts [Moles/Vol]104 mmol/TAnslwu857-693AhvijdMercy Memorial HospitalComment on above:Performed By: #### [id number] #### [facility] [address], [place] [address]JG5 [Moles/Vol]30 mmol/URwpibt16-91VaexglMercy Memorial Hospital Comment on above:Performed By: #### [id number] #### [facility] [address], [place] [address]Jnvrmpsxdw [Mass/Vol]1.5 mg/dLHigh0.5-1.3FMercy Health Kings Mills HospitalComment on above:Performed By: #### [id number] #### [facility] [address], [place] [address]Oyhhuvgn (S) [Mass/Vol]2.6 g/dLNormal1.4-4.0Mer[facility] Memorial HospitalComment on above:Performed By: #### [id number] #### [facility] [address], [place] [address]Agcdhgj [Mass/Vol]124 mg/oXBzlzyc18-977EuijjqMercy Memorial HospitalComment on above:Performed By: #### [id number] #### [facility] [address], [place] [address]Yaulwxwaj [Moles/Vol]4.7 mmol/LNormal3.5-5.3FMercy Health Kings Mills HospitalComment on above:Performed By: #### [id number] #### [facility] [address], [place] [address] [Mass/Vol]6.7 g/dLNormal6.0-7.8[facility] Memorial HospitalComment on above:Performed By: #### [id number] #### [facility] [address], [place] [address]Lpnxjl [Moles/Vol]138 mmol/MYnzrsi903-916NdrorkMercy Memorial HospitalComment on above:Performed By: #### [id number] #### [facility] [address], [place] [address]Rtbv nitrogen [Mass/Vol]29 mg/dLHigh5-21Mer[facility] Memorial HospitalComment on above:Performed By: #### [id number] #### [facility] [address], [place] [address]Kifrvi Medicine Office/Clinic Noteon 57-12-1610Jjimyd Medicine Office/Clinic NoteFavibra hospital of [facility] Medicine Office/Clinic Note Chief Complaint 6m follow up The patient presents for a follow-up on diabetes management and reports hand pain. [facility] Staff Former Dr Richey pt. [...] Does have follow up in December with recreation professor History of Present Illness 74-year-old female presenting [...] she does have an appointment with her recreation professor in December. The patient reports a history [...] Daily, # 14 tab(s), Refills(s) 0, Pharmacy: [facility], 158, cm, 10/30/24 12:39:00 EDT, Height/Length [...] Daily, # 14 tab(s), Refills(s) 0, Pharmacy: [facility], 158, cm, 10/30/24 12:39:00 EDT, Height/Length Dosing, 70.1, kg, 10/30/24 12:39:00 EDT, Weight Dosing 3. Hand pain (M79.643: Pain in unspecified hand) - Will refer to hand specialist Ordered: buPROPion, 300 mg = 1 tab(s), Oral, Daily, # 14 tab(s), Refills(s) 0, Pharmacy: [facility], 158, cm, 10/30/24 12:39:00 EDT, Height/Length Dosing, 70.1, kg, 10/30/24 12:39:00 EDT, Weight Dosing [facility] Ambulatory Referral 4. BMI 28.0-28.9,adult (Z68.28: Body mass index [BMI] 28.0-28.9, adult) BMI 28.08 Ordered: buPROPion, 300 mg = 1 tab(s), Oral, Daily, # 14 tab(s), Refills(s) 0, Pharmacy: [facility], 158, cm, 10/30/24 12:39:00 EDT, Height/Length Dosing, 70.1, kg, 10/30/24 12:39:00 EDT, Weight Dosing 5. Nonsmoker (Z78.9: Other specified health status) Encouraged (more content not included)...NormalMercy Memorial Hospital Comment on above:Result Comment: Electronically Signed By: DOMINIC ORTEGA CNP\.br\Date and Time Signed: 10/30/24 13:30 FZCIcmW8rpd 75-72-2089SbX4x (Bld) [Mass fraction]6.5 %High<=5.9[facility] Memorial HospitalComment on above: Performed By: #### [id number] #### [facility] [address], [place] [address]Shn-Pnrvz Planningon 55-96-0440Tuc-Visit PlanningPre-Visit Planning From: Sary LANCASTER, Keira To: [...] Prolonged grief disorder 01/24/2024 interdisciplinary note from social service coordinator-Consult for positive depression screen received. Per chart [...] and symptom control. Patient follows Denia at [facility]. PHQ-9 risk assessmentcompleted with positive findings. Total risk score is 13. Patient denies any suicidal ideations at this time. Reviewed additional signs/symptoms to monitor for and report to provider. Flyer from the [employer] [place] [employer] on Depression provided to patient. [...] denies current suicidal thoughts. (more content not included)...NormalMercy Memorial HospitalU Microalbon 10-30-2024U Microalb<0.6Uukegi0.0-1.9[facility] Comment on above:Performed By: #### [id number] #### [facility] [address], [place] [address]yKVCtn 00-14-3016kPOS02 mL/min/1.73 m2Low>=59Mer[facility] Memorial HospitalComment on above:Performed By: #### [id number] #### [facility] [address], [place] [address]Xwmhexrpec Visit Summaryon 01-93-5105Umbrvtfckn Visit Summary Ambulatory Visit Summary OLIVA MCNULTY [...] This Is Your Medications List Misc Prescription (Coiney Sam 2 Flash Glucose Monitoring 14 Day System (Sensor)) Mis Prescription (Pen Cecil) amlodipine aspirin (aspirin 81 mg Oral EC [...] Follow-Up Appointments Wednesday 10:00 AM EDT With: Denai Ding Where: [facility] Wednesday 9:00 AM EDT With: Denia Ding Where: [facility] Wednesday 9:00 AM EDT With: Denia Ding Where: [facility] Wednesday 9:00 AM EDT With: Denia Ding Where: [facility] 2024 8:20 AM EDT With: Dewayne Richey MD Where: [address] [address]- Wednesday 1:00 PM EST With: Where: [address] [address]- Medications What How Much When Why Instructions [...] every 14 days. Unchanged Misc Prescription (Pen Cecil) See instructions To be used with admin. [...] stress disorder Constipation 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 Diabetic gastroparesis [...] 3 chronic kidney disease (more content not included)...[facility] GeneralF[facility] Medicine Office/Clinic Note on 53-46-3208Srpyyu Medicine Office/Clinic NoteFami Medicine Office/Clinic Note Chief [...] to prevent further complications. Ordered: A1c POC 56012 5. 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 [facility] GeneralComment on above:Result Comment: Electronically Signed By: Dewayne Richey MD\.br\Date and Time Signed: 05/09/24 09:20 EDT Ambulatory Visit Summaryon 79-38-4912Nucjtrsakk Visit SummaryAmbulatory Visit Summary OLIVA MCNULTY :1950 [...] 14 Day System (Sensor)) Misc Prescription (Pen Cecil) amlodipine aspirin (aspirin 81 mg Oral EC [...] 10:00 AM EST With: Denia Ding Where: [facility] Wednesday 9:00 AM EDT With: Denia Ding Where: [facility] Wednesday 10:00 AM EDT With: Denia Ding Where: [facility] Wednesday 9:00 AM EDT With: Denia Ding Where: [facility] Wednesday 8:15 AM EDT With: Dewayne Richey MD Where: [address] [address]- Wednesday 1:00 PM EST With: Where: [address] [address]- Medications What How Much When [...] every 14 days. Unchanged Misc Prescription (Pen Cecil) See instructions To be used with admin. [...] posttraumatic stress disorder 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 Diabetic gastroparesis associated with type 2 diabetes mellitus Diabetic retinopathy DM type 2 causing CKD stage 3 GERD (gastroesophageal reflux disease) Hypercholesterolemia Insomn (more content not included)...[facility] Medicine Office/Clinic Noteon 29-98-5180Utzfvy Medicine Office/Clinic NoteFami Medicine Office/Clinic Note Chief [...] continue participation in community groups such as congregation and [employer]. - Evaluation of emotional health [...] nephrotoxic agents. 3. Long-term insulin use (Z79.4: group home (current) use of insulin) Assured adherence to [...] q24hr, # 90 tab(s), Refills(s) 1, Pharmacy: [facility], 158, cm, 03/28/24 15:03:00 EST, Height/Length [...] and being a burden (more content not included)...[facility] GeneralComment on above: Result Comment: Electronically Signed By: Mat JIMENEZ, Dewayne Chaparro\Date and Time Signed: 03/28/24 15:38 ESTEstimated glomerular filtration rate (GFR) non- Americanon 46-54-4200ZMQ/1.73 sq M.predicted among non-blacks MDRD (S/P/Bld) [Vol rate/Area]Estimated glomerular filtration rate (GFR) non- Low>=60 mL/min/1.73m 2FFayette County Memorial HospitalGlobulin Calc (S) [Mass/Vol]on 98-22-8110Qksxbjjo (S) [Mass/Vol]Serum globulin measurement by calculation (mass/volume)[facility] - [facility] and Chemistry - challengeon 47-81-8607Akgneyg [Mass/Vol]3.6 g/dL3.4-5.0 [facility] ClinicALP [Catalytic activity/Vol]75 U/L46-116 [facility] ClinicALT [Catalytic activity/Vol]32 U/L14-59 [facility] ClinicAST [Catalytic activity/Vol]24 U/L15-37 [facility] ClinicBilirubin [Mass/Vol]0.3 mg/dL0.2-1.0[facility] ClinicCalcium [Mass/Vol]9.6 mg/dL8.5-10.1FFayette County Memorial HospitalChloride [Moles/Vol]103 mmol/F74-739JkqyshnykCleveland ClinicCO2 [Moles/Vol]29.0 mmol/L21.0-32.0[facility] Creatinine [Mass/Vol]1.23 mg/dLHigh0.55-1.02[facility] GFR/1.73 sq M.predicted MDRD (S/P/Bld) [Vol rate/Area]52 mL/min/{1.73_m2}Low>=60 mL/min/1.[address]m [address] [place], [place] [address]Glucose [Mass/Vol]43 mg/dL Critically mez36-031LslrisyozCleveland ClinicComment on above:RESULTS CALLED TO CHILO NELSON LPN @BY Agatha Lyons go3833Zyabdqgvq [Moles/Vol]3.7 mmol/L3.5-5.1FFayette County Memorial HospitalProtein [Mass/Vol]7.0 g/dL6.4-8.2 [facility] Hospitalodium [Moles/Vol]139 mmol/P621-918NmrfixlxsCleveland ClinicUrate [Mass/Vol]3.3 mg/dL2.6-6.0Cleveland ClinicUrea nitrogen [Mass/Vol]17.0 mg/dL7.0-18.0Cleveland ClinicUrea nitrogen/Creatinine [Mass ratio]13.8 mg/mgCleveland ClinicNo Panel Informationon 38-95-6502Rgukqmjyre Level2.6 mg/dL2.6-4.7 [facility] City Hospitalerum or plasma albumin/globulin mass ratioon 77-78-3057Sdzvnbj/Globulin [Mass ratio]Serum or plasma albumin/globulin mass ratioTwin City Hospitalerum or plasma anion gap determinationon 10-27-9362Ehtpt gap [Moles/Vol]Serum or plasma anion gap determinationCleveland ClinicAmbulatory Visit Summaryon 28-25-1973Xahnfautbl Visit SummaryAmbulatory Visit Summary OLIVA MCNULTY :1950 Visit Date:01/17/2024 Ambulatory Visit Instructions Your Diagnosis BMI 32.0-32.9,adult Exogenous obesity Nonsmoker Attention deficit disorder (ADD) Obsessive-compulsive behavior DM type 2 causing CKD stage 3 Insomnia Chronic kidney disease, stage 3 unspecified Your Care Team Attending Physician - Dewayne Richey MD Primary Care Physician - Dewayne Richey MD This Is Your Medications List [facility] Prescription (Freestyle Sam 2 Flash Glucose Monitoring 14 Day System (Sensor)) [facility] Prescription (Pen Cecil) amlodipine aspirin (aspirin 81 mg Oral EC [...] Ding Where: [facility] Wednesday 10:00 AM EST With: Dewayne Richey MD Where: [address] [address]- Wednesday 1:00 PM EST With: Where: [address] [address]- Medications What How Much When [...] every 14 days. Unchanged Misc Prescription (Pen Cecil) See instructions To be used with admin. [...] posttraumatic stress disorder 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 Diabetic gastroparesis [...] you for choosing us for your care. [facility] Medicine Office/Clinic Noteon 17-15-3050Rqhxlv Medicine Office/Clinic NoteFavibra hospital of [facility] Medicine Office/Clinic Note Chief Complaint Feeling down [...] - Encouraged participation in social activities and congregation as a means to improve mental health. [...] q24hr, # 90 tab(s), Refills(s) 0, Pharmacy: [facility], 158, cm, 01/17/24 9:38:00 EST, Height/Length Dosing, 79.9, kg, 01/17/24 9:38:00 EST, WeightDosing 2. Obesity (E66.811) Discuss continued weight management strategies and the benefits of physical activity. Ordered: buPROPion, 150 mg = 1 tab(s), Oral, q24hr, # 90 tab(s), Refills(s) 0, Pharmacy: [facility], 158, cm, 01/17/24 9:38:00 EST, Height/Length Dosing, 79.9, kg, 01/17/24 9:38:00 EST, WeightDosing 3. BMI 32.0-32.9,adult (Z68.32: Body mass index [BMI] 32.0-32.9, adult) BMI education added. Ordered: buPROPion, 150 mg = 1 tab(s), Oral, q24hr, # 90 tab(s), Refills(s) 0, Pharmacy: [facility], 158, cm, 01/17/24 9:38:00 EST, Height/Length [...] q24hr, # 90 tab(s), Refills(s) 0, Pharmacy: [facility], 158, cm, 01/17/24 9:38:00 EST, Height/Length Dosing, 79.9, kg, 01/17/24 9:38:00 EST, WeightDosing Body Mass Index (BMI) documented 3008F Current tobacco non-user 1036F Depression Screening Negative 3352F Depression Screening Positive 3354F Influenza immunization administered or previously received 4274F Most recent diastolic blood pressure <80 mm Hg 3078F (more content not included)...[facility] GeneralComment on above: Result Comment: Electronically Signed By: Dewayne Richey MD\.br\Date and Time Signed: 01/17/24 10:17 ESTAmbulatory Visit Summaryon [id number] Visit SummaryAmbulatory Visit Summary OLIVA MCNULTY :1950 [...] 14 Day System (Sensor)) Misc Prescription (Pen Cecil) amlodipine aspirin (aspirin 81 mg Oral EC [...] [facility] Wednesday 1:20 PM EST With: Where: [address] [address]- Wednesday 10:00 AM EST With: Mat JIMENEZ, Dewayne Zhao Where: [address] [id number]- Wednesday 1:00 PM EST With: Where: [address] [address]- You Need to Complete the [...] every 14 days. Unchanged Misc Prescription (Pen Cecil) See instructions To be used with admin. [...] influenza virus vaccine, inactivated, (more content not included)...[facility] Office/Clinic Noteon [phone] Medicine Office/Clinic NoteFami Medicine Office/Clinic Note Chief [...] : Living will, Medical durable power of associate attorney Location of Advance Directive : Scanned [...] PHQ9 (Positive Screen) Trouble (more content not included)...NormalMercy Memorial HospitalComment on above:Result Comment: Electronically Signed By: Dewayne Richey MD\.br\Date and Time Signed: 01/03/24 15:07 EST\.br\Electronically Co-Signed By: Demi Amaya\.br\Date and Time Co-Signed: 12/23/23 16:47 EST.Interpretation:on 01-02-2024 HCV Ab IA QlCommentInvalid Interpretation [facility] HospitalComment on above:Result Comment: Not infected with HCV unless early or acute infection is suspected (which may be delayed in an immunocompromised individual), or other evidence exists to indicate HCV infection. Performed at: [employer] [address] [id number] PhD Tito ClarkPerformed By: #### [id number] #### [facility] [address] [place] [address] 25[address]EEB Antibody RFX to Quant PCRon 69-51-0255AZG IgG IA Ql Non-ReactiveInvalid Interpretation CodeNon ReactiveMercy Memorial Hospital Comment on above:Result Comment: Performed at: [employer] [address] [id number] PhD Tito Beverlyformed By: #### [id number] #### [facility] [address] [place], [place] [address]RWWSTXHAIEspjydd By: Kendy Fontaine on 28-37-1008JfF0e (Bld) [Mass fraction]6.7 %High<=5.9%[facility] SuxxSxgwPEGktT1ynx 66-22-8466BlW9u (Bld) [Mass fraction]6.7 %High<=5.9Mer[facility] Memorial HospitalComment on above: Performed By: #### [id number] #### [facility] [address] [place], [place] [address]Apibmcsssk Visit Summaryon 20-58-4821Nvbxdggcvp Visit Summary Ambulatory Visit Summary OLIVA MCNULTY [...] physician if questions or concerns Misc Prescription (Coiney Sam 2 Flash Glucose Monitoring 14 Day System (Sensor)) Misc Prescription (Pen Cecil) Misc Prescription (Pen Cecil) amlodipine aspirin (aspirin 81 mg Oral EC [...] 10:00 AM EDT With: Denia Ding Where: [facility] Wednesday 10:00 AM EDT With: Denia Ding Where: [facility] 2023 1:00 PM EST With: Where: [facility] Medicine [address] [address]- Wednesday 10:00 AM EST With: Dewayne Richey MD Where: [facility] [address] [address]- Medications What How Much When Why Instructions New escitalopram (Lexapro 5 mg oral tablet) 1 Tablets By Mouth Every day Pickup at [facility] Unchanged amlodipine 5 Milligram By Mouth [...] questions or concerns Unchanged Misc Prescription (Pen Cecil) See instructions To be used with admin. of insulin QID. Dx: E11.22 1ea equals 1box Contact prescribing physician if questions or concerns Unchanged Misc Prescription (Pen Cecil) See instructions To be used with admin. [...] physician if questions or concerns Pharmacy Information [facility]: [address] [place] [phone] Allergies No Known Medication Allergies Problems Ongoing - Any problem that you are currently receiving treatment for. Adjustmen (more content not included)...NormalMercy Memorial HospitalCBC w/ Auto Diffon 99-58-7564Jbmhrbfcp/100 WBC (Bld)0.9 %Normal0.0-2.0Mer[facility] Memorial HospitalComment on above:Performed By: #### [id number] #### [facility] [address] [place] [address]Ypjazkblc/Leukocytes Auto (Bld) [Pure # fraction]0.1 E9/LNormal 0.0-0.2FMercy Health Kings Mills HospitalComment on above:Performed By: #### [id number] #### [facility] [address] [place] [address]Vurypghzxma (Bld) [#/Vol]0.1 E9/LNormal0.0-0.5FMercy Health Kings Mills HospitalComment on above:Performed By: #### [id number] #### [facility] [address] [place] [address]Thxwmsdofhw/100 WBC (Bld)1.2 %Normal0.0-8.0Mer[facility] Memorial HospitalComment on above:Performed By: #### [id number] #### [facility] [address] [place], [place] [address]Npffsgztbrc distribution width (RBC) [Ratio]15.8 %High10.9-14.2 [facility] Memorial HospitalComment on above:Performed By: #### [id number] #### [facility] [address] [place] [address]Dcwbnubnqz (Bld) [Volume fraction]40.1 %Qoldou19.0-46.0Mer[facility] Memorial HospitalComment on above:Performed By: #### [id number] #### [facility] [address] [place] [address]Hylcxuefqr (Bld) [Mass/Vol]13.1 g/uZNfwugf46.0-16.0[facility] HospitalComment on above:Performed By: #### [id number] #### [facility] [address] [place] [address]Qfmopbuxemt (Bld) [#/Vol]1.9 E9/LNormal1.0-4.0Mer[facility] Memorial HospitalComment on above:Performed By: #### [id number] #### [facility] [address] [place] [address]Jfgoxqyncyl/100 WBC (Bld)24.3 %Thhgcb40.0-50.0Mer[facility] Memorial HospitalComment on above:Performed By: #### [id number] #### [facility] [address] [place] [address]97[address]ZYB (RBC) [Entitic mass]27.4 ddAhticd13.0-34.0Mer[facility] Memorial HospitalComment on above:Performed By: #### [id number] #### [facility] [address] [place] [address]HDVS (RBC) [Mass/Vol]32.6 g/rSTkiiab42.4-36.0[facility] HospitalComment on above:Performed By: #### [id number] #### [facility] [address] [place] [address]RKI (RBC) [Entitic vol]84.1 pCOwjtwo67.0-100.0Mer[facility] Memorial HospitalComment on above:Performed By: #### [id number] #### [facility] [address] [place] [address]Fqrzzxmsd (Bld) [#/Vol]0.6 E9/LNormal0.2-1.0Mer[facility] Memorial HospitalComment on above:Performed By: #### [id number] #### [facility] [address] [place] [address]Hcxxsndggrt (Bld) [#/Vol]5.2 E9/LNormal2.0-7.5FMercy Health Kings Mills HospitalComment on above:Performed By: #### [id number] #### [facility] [address] [place] [address]Nrlodxecjqc/100 WBC (Bld)65.6 %Ifgczu88.0-75.0Mer[facility] Memorial HospitalComment on above:Performed By: #### [id number] #### [facility] [address] [place] [address]Apebzuen mean volume (Bld) [Entitic vol]11.0 fLHigh6.4-10.8 [facility] HospitalComment on above:Performed By: #### [id number] #### [facility] [address] [place] [address]Smqdqopyd (Bld) [#/Vol]174.0 E9/MEcuyse269.0-500.0Mer[facility] Memorial HospitalComment on above:Performed By: #### [id number] #### [facility] [address] [place] [address]HLZ (Bld) [#/Vol]4.8 E12/LNormal4.3-5.9Mer[facility] Memorial HospitalComment on above:Performed By: #### [id number] #### [facility] [address] [place] [address]PSV corrected for nucl RBC Auto (Bld) [#/Vol]8.0 E9/LNormal 4.0-11.0Mer[facility] Memorial HospitalComment on above:Performed By: #### [id number] #### [facility] [address] [place] [address]RTKDPXIPWOzoevzu By: SYSTEM SYSTEM on 87-91-3757Rmdydjo [Mass/Vol]4.1 g/dLNormal3.3 - 5.0 gm/dLRemisol ChemAlbumin/Globulin [Mass ratio] 1.4 {ratio}Normal1.1 - 2.2Remisol ChemALP [Catalytic activity/Vol]56 [iU]/d Egqbuf81 - 98 Int._Unit/LRemisol ChemALT No additional P-5'-P [Catalytic activity/Vol]20 [iU]/dNormal6 - 46 Int._Unit/LRemisol ChemAnion gap [Moles/Vol] 13 mmol/LNormal6 - 16 mEq/LRemisol ChemAST [Catalytic activity/Vol]25 [iU]/d Normal5 - 43 Int._Unit/LRemisol ChemBilirubin [Mass/Vol]0.5 mg/dLNormal0.0 - 1.1 mg/dLRemisol ChemCalcium [Mass/Vol]10.2 mg/dLNormal8.9 - 11.1 mg/dLRemisol Chem Chloride [Moles/Vol]101 mmol/YLtfipe666 - 111 mmol/LRemisol ChemCholesterol [Mass/Vol]140 mg/oXKncdji363 - 200 mg/dLRemisol ChemCholesterol in HDL [Mass/Vol]55 mg/dLInvalid Interpretation CodeRemisol ChemComment on above:Result Comment: '>= 60 LOW RISK' '<= 40 HIGH RISK'Cholesterol in LDL [Mass/Vol]64 mg/dLNormal<=129mg/dLRemisol ChemCholesterol in VLDL [Mass/Vol]16 mg/dLNormal7 - 40 mg/dLRemisol ChemCO2 [Moles/Vol]26 mmol/AShmeri72 - 31 mmol/LRemisol ChemCreatinine [Mass/Vol]1.2 mg/dLNormal0.5 - 1.3 mg/dLRemisol EbgeaEPI73 mL/min/1.73 m2Low>=59mL/min/1.73 m2 Remisol ChemGlobulin (S) [Mass/Vol]2.9 g/dLNormal1.4 - 4.0 gm/dLRemisol Chem Glucose [Mass/Vol]112 mg/hGKwjokn08 - 199 mg/dLRemisol ChemPotassium [Moles/Vol] 4.6 mmol/LNormal3.5 - 5.3 mmol/LRemisol ChemProtein [Mass/Vol]7.0 g/dLNormal6.0 - 7.8 gm/dLRemisol ChemSodium [Moles/Vol]135 mmol/MZxaggt293 - 145 mmol/LRemisol ChemTriglyceride [Mass/Vol]78 mg/dLNormal<=149mg/dLRemisol ChemUrea nitrogen [Mass/Vol]19 mg/dLNormal5 - 21 mg/dLRemisol ChemUrea nitrogen/Creatinine [Mass ratio]16 mg/ypJewuxv65 - 20Remisol ChemAlbumin DL <= 20 mg/L (U) [Mass/Vol]6.5 mg/dLHigh0.0 - 1.9 mg/dLRemisol ChemProtein/Creatinine (U) [Ratio]16.30 mg/gm Cr Normal0.00 - 200.00 mg/gm CrRemisol ChemU Zzunyosihd402.3 mg/dLInvalid Interpretation CodeRemisol ChemUr Total Fjkkkon85.1 mg/dLInvalid Interpretation CodeRemisol ChemCHEMISTRYOrdered By: Lazaro Naranjo on 73-77-2192ZnP8y (Bld) [Mass fraction]6.0 %High<=5.9%[facility] ChemAutoSSCMPon 49-28-3172Zetaytw [Mass/Vol] 4.1 g/dLNormal3.3-5.0Mer[facility] Memorial HospitalComment on above:Performed By: #### [id number] #### [facility] [address] [place], [place] [address]Shgwmvo/Globulin (S) [Mass conc ratio]1.6Fzoavf7.1-2.2[facility]. Agnes HospitalComment on above:Performed By: #### [id number] #### [facility] [address], [place] [address]RKH [Catalytic activity/Vol]56 Int._Unit/ZPmgebx03-21XmphyhMercy Memorial HospitalComment on above:Performed By: #### [id number] #### [facility] [address], [place] [address]HEN No additional P-5'-P [Catalytic activity/Vol]20 Int._Unit/L Normal6-46Mer[facility] Memorial HospitalComment on above:Performed By: #### [id number] #### [facility] [address], [place] [address]Lfacm gap [Moles/Vol]13 mmol/LNormal6-16Mer[facility] Memorial HospitalComment on above:Performed By: #### [id number] #### [facility] [address], [place] [address]IXS [Catalytic activity/Vol]25 Int._Unit/LNormal5-43Mer[facility] Memorial HospitalComment on above:Performed By: #### [id number] #### [facility] [address], [place] [address]Imrqvrwpk [Mass/Vol]0.5 mg/dLNormal0.0-1.1FMercy Health Kings Mills HospitalComment on above:Performed By: #### [id number] #### [facility] [address], [place] [address]Woeizmd [Mass/Vol]10.2 mg/dLNormal8.9-11.1FMercy Health Kings Mills HospitalComment on above:Performed By: #### [id number] #### [facility] [address], [place] [address]Uvhizyqy [Moles/Vol]101 mmol/WVwejsx793-140NvcjgrMercy Memorial HospitalComment on above:Performed By: #### [id number] #### [facility] [address], [place] [address]PD9 [Moles/Vol]26 mmol/DYmnrlz55-57KbztdhMercy Memorial Hospital Comment on above:Performed By: #### [id number] #### [facility] [address], [place] [address]Aocqzcrplv [Mass/Vol]1.2 mg/dLNormal0.5-1.3FMercy Health Kings Mills HospitalComment on above:Performed By: #### [id number] #### [facility] [address], [place] [address]Jqvkwxqn (S) [Mass/Vol]2.9 g/dLNormal1.4-4.0Mer[facility] Memorial HospitalComment on above:Performed By: #### [id number] #### [facility] [address], [place] [address]Brbwcql [Mass/Vol]112 mg/xMPyjsam32-726CposnrMercy Memorial HospitalComment on above:Performed By: #### [id number] #### [facility] [address], [place] [address]Ibtlapneu [Moles/Vol]4.6 mmol/LNormal3.5-5.3FMercy Health Kings Mills HospitalComment on above:Performed By: #### [id number] #### [facility] [address], [place] [address]Ioifgkp [Mass/Vol]7.0 g/dLNormal6.0-7.8Mer[facility] Memorial HospitalComment on above:Performed By: #### [id number] #### [facility] [address], [place] [address]Efigmm [Moles/Vol]135 mmol/AQiaian994-983MnplgzMercy Memorial HospitalComment on above:Performed By: #### [id number] #### [facility] [address], [place] [address]Puyc nitrogen [Mass/Vol]19 mg/dLNormal5-21Mer[facility] Memorial HospitalComment on above:Performed By: #### [id number] #### [facility] [address], [place] [address]Segp nitrogen/Creatinine [Mass ratio]16 No IuogvTazwqj53-11 [facility] HospitalComment on above:Performed By: #### [id number] #### [facility] [address], [place] [address]Iujxdi Medicine Office/Clinic Noteon 44-65-8932Lthmra Medicine Office/Clinic NoteFavibra hospital of [facility] Medicine Office/Clinic Note HPI Staff Baptiste is [...] falls in last (more content not included)... NormalMercy Memorial HospitalComment on above:Result Comment: Electronically Signed By: Mat JIMENEZ, Dewayne Chaparro\Date and Time Signed: 09/27/23 13:19 EDT HEMATOLOGYOrdered By: SYSTEM SYSTEM on 37-57-7359Onjhpydam/100 WBC (Bld)0.9 % Normal0.0 - 2.0 %Remisol HemeBasophils/Leukocytes Auto (Bld) [Pure # fraction] 0.1 E9/LNormal0.0 - 0.2 E9/LRemisol HemeEosinophils (Bld) [#/Vol]0.1 E9/LNormal 0.0 - 0.5 E9/LRemisol HemeEosinophils/100 WBC (Bld)1.2 %Normal0.0 - 8.0 %Remisol HemeErythrocyte distribution width (RBC) [Ratio]15.8 %High10.9 - 14.2 %Remisol HemeHematocrit (Bld) [Volume fraction]40.1 %Oihvhb03.0 - 46.0 %Remisol Heme Hemoglobin (Bld) [Mass/Vol]13.1 g/aQCijdmz86.0 - 16.0 gm/dLRemisol Heme Lymphocytes (Bld) [#/Vol]1.9 E9/LNormal1.0 - 4.0 E9/LRemisol HemeLymphocytes/100 WBC (Bld)24.3 %Shslwc47.0 - 50.0 %Remisol HemeMCH (RBC) [Entitic mass]27.4 pg Vperxp64.0 - 34.0 pgRemisol HemeMCHC (RBC) [Mass/Vol]32.6 g/dKQwhgky85.4 - 36.0 gm/dLRemisol HemeMCV (RBC) [Entitic vol]84.1 sERyvgjm87.0 - 100.0 fLRemisol Heme Monocytes (Bld) [#/Vol]0.6 E9/LNormal0.2 - 1.0 E9/LRemisol HemeMonocytes/100 WBC (Bld)8.0 %Normal4.0 - 14.0 %Remisol HemeNeutrophils (Bld) [#/Vol]5.2 E9/LNormal 2.0 - 7.5 E9/LRemisol HemeNeutrophils/100 WBC (Bld)65.6 %Cdqosj85.0 - 75.0 % Remisol HemePlatelet mean volume (Bld) [Entitic vol]11.0 fLHigh6.4 - 10.8 fL Remisol HemePlatelets (Bld) [#/Vol]174.0 E9/NTkiheh973.0 - 500.0 E9/LRemisol HemeRBC (Bld) [#/Vol]4.8 E12/LNormal4.3 - 5.9 E12/LRemisol HemeWBC corrected for nucl RBC Auto (Bld) [#/Vol]8.0 E9/LNormal4.0 - 11.0 E9/LRemisol OqugCshA4hhm 47-65-4127SsG0q (Bld) [Mass fraction]6.0 %High<=5.9[facility] Comment on above:Performed By: #### [id number] #### [facility] [address], [place] [address]Fbnbb Panelon 66-17-3156Rjxqlyqoiyy [Mass/Vol]140 mg/dLNormal 120-200Mer[facility] Memorial HospitalComment on above:Performed By: #### [id number] #### [facility] [address], [place] [address]Udigzrlhojy in HDL [Mass/Vol]55 mg/dLInvalid Interpretation CodeMercy Memorial HospitalComment on above:Result Comment: '>= 60 LOW RISK' '<= 40 HIGH RISK'Performed By: #### [id number] #### [facility] [address], [place] [address]Bdukivaafuw in LDL [Mass/Vol]64 mg/dLNormal<=129Mer[facility] Memorial HospitalComment on above:Performed By: #### [id number] #### [facility] [address], [place] [address]Oqoxyefbsae in VLDL [Mass/Vol]16 mg/dLNormal7-40[facility] HospitalComment on above:Performed By: #### [id number] #### [facility] [address], [place] [address]Epdthqqbpilo [Mass/Vol]78 mg/dLNormal<=149Mer[facility] Memorial HospitalComment on above:Performed By: #### [id number] #### [facility] [address], [place] [address]W Microalbon 44-72-6716Piebgeh DL <= 20 mg/L (U) [Mass/Vol]6.5 mg/dLHigh0.0-1.9[facility] HospitalComment on above:Performed By: #### [id number] #### [facility] [address], [place] [address]M Protein/Creat Ratioon 42-61-4856Fyijsnq/Creatinine (U) [Ratio]16.30 mg/gm CrNormal.00-200.00Mer[facility] Memorial HospitalComment on above:Performed By: #### [id number] #### [facility] [address], [place] [address] Hevuwqwefz164.3 mg/dLInvalid Interpretation [facility] HospitalComment on above:Performed By: #### [id number] #### [facility] [address], [place] [address]Kf Total Dbtsnbq17.1 mg/dLInvalid Interpretation [facility] HospitalComment on above:Performed By: #### [id number] #### [facility] [address], [place] [address]fIDBfy 30-03-4051jCDP79 mL/min/1.73 m2Low>=59Mer[facility] Memorial HospitalComment on above:Order Comment: Order added by Discern Expert. Performed By: #### [id number] #### [facility] [address], [place] [address]Tvqetfpcydl distribution width Auto (RBC) [Ratio]on 09-22-2023 Erythrocyte distribution width (RBC) [Ratio]15.5 %High11.0-15.0Cleveland ClinicEstimated glomerular filtration rate (GFR) non- Americanon 87-04-0768RBT/1.73 sq M.predicted among non-blacks MDRD (S/P/Bld) [Vol rate/Area]51 mL/min/{1.73_m2}Low>=60[facility] Globulin Calc (S) [Mass/Vol]on 86-47-7456Cqqhzrqm (S) [Mass/Vol]3.3 g/dL [facility] ClinicHematocrit Auto (Bld) [Volume fraction]on 44-13-1997Pmetvsvflx (Bld) [Volume fraction]40.3 %36.0-48.0Cleveland ClinicHemoglobin [Mass/volume] in Bloodon 63-78-7903Mcwwrksnuf (Bld) [Mass/Vol]12.9 g/dL12.0-16.0[facility] ClinicLaboratory - Chemistry and Chemistry - challengeon 30-19-8451Mprkasq [Mass/Vol]3.8 g/dL 3.4-5.0C[facility] ClinicALP [Catalytic activity/Vol]63 U/L46-116 [facility] ClinicALT [Catalytic activity/Vol]23 U/L14-59 [facility] ClinicAST [Catalytic activity/Vol]16 U/L15-37 [facility] ClinicBilirubin [Mass/Vol]0.6 mg/dL0.2-1.0C[facility] ClinicCalcium [Mass/Vol]10.3 mg/dLHigh8.5-10.1FFayette County Memorial HospitalChloride [Moles/Vol]102 mmol/P67-447HionavtqnCleveland ClinicCO2 [Moles/Vol]30.1 mmol/L21.0-32.0C[facility] ClinicCreatinine [Mass/Vol]1.05 mg/dLHigh0.55-1.02Cleveland ClinicGFR/1.73 sq M.predicted MDRD (S/P/Bld) [Vol rate/Area]mL/min/{1.73_m2}>=60 [facility] ClinicGlucose [Mass/Vol]60 mg/sJUbt67-584TuvezacoyCleveland ClinicMagnesium [Mass/Vol]1.8 mg/dL1.8-2.4FFayette County Memorial HospitalPotassium [Moles/Vol]4.2 mmol/L3.5-5.1FFayette County Memorial HospitalProtein [Mass/Vol]7.1 g/dL6.4-8.2FBarney Children's Medical Centerodium [Moles/Vol]137 mmol/T742-249ReiodsutbCleveland ClinicUrate [Mass/Vol]3.2 mg/dL2.6-6.0C[facility] ClinicUrea nitrogen [Mass/Vol]21.0 mg/dL High7.0-18.0Cleveland ClinicUrea nitrogen/Creatinine [Mass ratio]20.0 mg/mgCleveland ClinicLaboratory - Urinalysison 16-89-3807Fwuqsfe (U) [Mass/Vol]12.7 mg/dLHigh<=11.9Cleveland ClinicLeukocytes [#/volume] corrected for nucleated erythrocytes in Blood by Automated counon 78-49-7091IYK corrected for nucl RBC Auto (Bld) [#/Vol]8.5 10 3/uL4.0-11.0Barney Children's Medical CenterH Auto (RBC) [Entitic mass]on 10-06-1721LAB (RBC) [Entitic mass]27.0 pg26.7-34.0Cleveland ClinicMCHC Auto (RBC) [Mass/Vol]on 65-15-2890QSUN (RBC) [Mass/Vol]32.0 g/dL 29.9-35.2FFayette County Memorial HospitalMCV Auto (RBC) [Entitic vol]on 59-22-5868BOQ (RBC) [Entitic vol]84.3 fL81.0-99.0Cleveland ClinicNo Panel Informationon 69-64-859493544985-Fvtghvn Vitamin D Total56.6 ng/mL Cleveland ClinicComment on above:<20 ng/mL Vit D hhnpsppni84- <30 ng/mL Vit D ckntxypjsylj08-270 ng/mL Vit D sufficient>100 ng/mL Potential ToxicityParathyroid Hormone (Intact)19 pg/xH38-04YdkdxaakuCleveland ClinicComment on above:Performed at: - [facility] [id number] [place], [place] [id number] Director: Eduardo Francis PhD, Phone: [phone] Phosphorus Level3.5 mg/dL2.6-4.7FFayette County Memorial HospitalUrine Random Ulkoplukgj97.39 mg/dL20.00-300.00Cleveland ClinicPlatelet mean volume Auto (Bld) [Entitic vol]on 45-29-7949Puxswchh mean volume (Bld) [Entitic vol]12.0 fL9.5-13.5FFayette County Memorial HospitalPlatelets Auto (Bld) [#/Vol] on 84-72-0189Lebmcrwzp (Bld) [#/Vol]174 10 3/zD990-736EcfeilzlpCleveland ClinicRBC Auto (Bld) [#/Vol]on 24-43-6990KRC (Bld) [#/Vol]4.78 10 6/uL4.20-5.40 [facility] Hospitalerum or plasma albumin/globulin mass ratioon 48-83-5805Tnczryf/Globulin [Mass ratio]1.2 {ratio}[facility] City Hospitalerum or plasma anion gap determinationon 25-45-1501Mazvr gap [Moles/Vol] 9.1 mmol/LFFayette County Memorial HospitalUrine protein/creatinine ratioon 86-07-8436Xxzndwz/Creatinine (U) [Ratio]0.15[facility] Ambulatory Visit Summaryon 62-32-4158Tvotzzovrd Visit Summary OLIVA MCNULTY :1950 Visit Date:07/20/2023 Ambulatory Visit Instructions Your Diagnosis BMI 31.0-31.9,adult Your Care Team Attending Physician - DOMINIC ORTEGA CNP Primary Care Physician - Dewayne Richey MD This Is Your Medications List Misc Prescription (Freestyle Sam 2 Flash Glucose Monitoring 14 Day System (Sensor)) Misc Prescription (Pen Cecil) Misc Prescription (Pen Cecil) amlodipine aspirin (aspirin 81 mg Oral EC [...] EDT With: Mat JIMENEZ, Dewayne Zhao Where: [facility] [address] [place] [address]- \.br\ Medications\.br\ What How Much When Why [...] 14 days. \.br\ Unchanged Misc Prescription (Pen Cecil) See instructions To be used with admin. of insulin QID. Dx: E11.22 1ea equals 1box \.br\ Unchanged Misc Prescription (Pen Cecil) See instructions To be used with admin. 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\.br\ Diabetic gastroparesis [...] for choosing us for your care.\.br\ \.br\Ja [facility] Medicine Office/Clinic Noteon 33-67-2989Smjiln Medicine Office/Clinic NoteUINTAH [facility] Staff Oliva Mcnulty 73 presents [...] available Patient Education Upper Respiratory Infection, Adult, Moao-sa-Btjn Problem List/Past Medical History Ongoing Adjustment disorder with disturbance of emotion Benign essential HTN Benign hypertension with chronic kidney disease, stage III BMI 31.0-31.9,adult Chronic kidney disease (CKD), stage III (moderate) 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 Hbyj-qru-vjorkjo cold medicines. ? Medicines to reduce coughing [...] other clear broths. General instructions ? 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 ? Avoid touching your mouth, face, eyes, [...] get better within 7?10 days. ? Take dycs-yik-ipyauxq and prescription medicines only as told by your doctor. 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 PVC's (premature [...] physician if questions or concerns Misc Prescription (Coiney Sam 2 Flash Glucose Monitoring 14 Day System (Sensor)) Misc Prescription (Pen Cecil) Misc Prescription (Pen Cecil) amlodipine aspirin (aspirin 81 mg Oral EC [...] 1:00 PM EDT With: Denia Ding Where: [facility] Mariaelena Wednesday 10:00 AM EDT With: Dewayne Richey MD Where: [facility] [address] [place] [address]- \.br\ Medications\.br\ What How Much When Why [...] or concerns \.br\ Unchanged Misc Prescription (Pen Cecil) See instructions To be used with admin. of i nsulin QID. Dx: 1ea equals 1box Contact prescribing physician if questions or concerns \.br\Unchanged Misc Prescription (Pen Cecil) See instructions To be used with admin. 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 Long-term insulin use (Z79.4: group home (current) use of insulin) - Diet and [...] Recent) 3074F 6. 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 (I25.10: Atherosclerotic heart disease of eastern shoshone coronary artery without angina pectoris) - No [...] (BMI) documented 3008F Current (more content not included)...[facility] GeneralComment on above:Result Comment: Electronically Signed By: Dewayne Richey MD\.br\Date and Time Signed: 06/29/23 10:38 EDTConsultation Noteon 30-10-1243Ryrjuesqqtvb [id number]#1.00TIFFNoCincinnati Shriners HospitalAmbulatory Visit Summaryon 30-43-5010Uweqkwcgau Visit Summary OLIVA MCNULTY :1950 Visit Date:03/30/2023 [...] if questions or concerns Misc Prescription (Pen Cecil) Misc Prescription (Pen Cecil) amlodipine aspirin (aspirin 81 mg Oral EC [...] 11:00 AM EST With: Denia Ding Where: [facility] Wednesday 10:00 AM EDT With: Mat JIMENEZ, Dewayne Zhao Where: [facility] [place]Invalid Interpretation [address] [place] [address]- \.br\ You Need to Complete the Following\.br\ HgbA1c, Blood, Routine collect, 03/30/23, Order for future visit, Lab Collect, DM type 2 causing CKD stage 3 [facility] HospitalCHEMISTRYOrdered By: Tatum Chávez on 03-30-2023 HbA1c (Bld) [Mass fraction]6.4 %High<=5.9%[facility] ChemAutoSSFamily Medicine Office/Clinic Noteon 37-86-7248Uxuown Medicine Office/Clinic NoteHPI Staff Oliva is a [...] bedtime), # 15 tab(s), Refills(s) 0, Pharmacy: [facility] #[id number], 158, cm, 03/30/23 10:02:00 EST, Height/Length Dosing, [...] bedtime), # 15 tab(s), Refills(s) 0, Pharmacy: [facility] #[id number], 158, cm, 03/30/23 10:02:00 EST, Height/Length Dosing, [...] bedtime), # 15 tab(s), Refills(s) 0, Pharmacy: [facility] #[id number], 158, cm, 03/30/23 10:02:00 EST, Height/Length Dosing, [...] bedtime), # 15 tab(s), Refills(s) 0, Pharmacy: [facility] #[id number], 158, cm, 03/30/23 10:02:00 EST, Height/Length Dosing, [...] 15 tab(s), Refills(s) 0, Pharmacy: [facility] #[id number], 158, cm, 03/30/23 10:02:00 EST, Height/Length Dosing, 82.6, kg, 03/30/23 10:02:00 EST, Weight Dosing HgbA1c 6. Insomnia (G47.00: Insomnia, unspecified) - Will try trazodone. Ordered: trazodone, 25 mg = 0.5 tab(s), Oral, Once a day (at bedtime), # 15 tab(s), Refills(s) 0, Pharmacy: [facility] #[id number], 158, cm, 03/30/23 10:02:00 EST, Height/Length Dosing, 82.6, kg, 03/30/23 10:02:00 EST, Weight Dosing Chronic kidney disease, stage 3 unspecified (N18.30: Chronic kidney disease, stage 3 unspecified) Orders: multivitamin, 1 tab(s), Oral, Daily, 90 tab(s), Refill(s) 0, [facility] #0 (more content not included)...NormalMercy Memorial HospitalComment on above:Result Comment: Electronically Signed By: Mat JIMENEZ, Dewayne Lynn.br\Date and Time Signed: 03/30/23 10:35 POTVasQ7hoi 30-20-3893HgZ6z (Bld) [Mass fraction]6.4 %High<=5.9 [facility] HospitalComment on above:Performed By: #### [id number] ####[facility] [address] [place] [address] Patient Educationon 35-76-8058Rthllvp EducationNutrition BMI for Adults What is BMI? [...] numbers. This can be done either in [place] or metric measurements. Note that charts and online BMI calculators are available to help you find your BMI quickly and easily without having to do these calculations yourself. To calculate your BMI in [place] ([place] measurements: 1. Measure your weight in [...] for Disease Control and Prevention: www.cdc.gov ? [place] Heart Association: www.heart.org ? National Heart, Lung, and Blood [place]: www.nhlbi.nih.gov Summary ? Body mass index (BMI) is a number that is calculated from a person's weight and height. ? BMI may help estimate how much of a person's weight is composed of fat. BMI can help identify those who may be at higher risk for certain medical problems. ? BMI can be measured using Kazakh measurements or metric measurements. ? BMI charts are used to identify whether you are underweight, normal weight, overweight, or obese. This information is not intended to replace advice given to you by your health care provider. Make sure you discuss any questions you have with your health care provider. Document Revised: 10/18/2019 Document Reviewed: 08/25/2019 [employer] Patient Education ? 2022 [employer].[facility] GLYCOHEMOGLOBIN A1Con 71-48-9979QFE RECOMMENDATIONSEE BELOWPremier Health Miami Valley HospitalComment on above:Result Comment: ADA RECOMMENDED LIMIT 4.0 - 6.0 ADA THERAPEUTIC TARGET < 7.0 ACTION SUGGESTED > 7.0Performed By: #### A1C #### [facility] [address] [address] [address] Adarsh SkinnerGlucose [Mass/Vol]146 mg/dLNoSelect Medical Specialty Hospital - TrumbullComment on above:Performed By: #### A1C #### [facility] [address] [address] [address] Adarsh SkinnerHbA1c (Bld) [Mass fraction]6.7 %Critically high4.5-6.2The [facility] Willard HospitalComment on above:Performed By: #### A1C #### [facility] [address] [address] [address] Adarsh SkinnerOffice Visit (Cardiology)on 63-51-7729Yleghl-up visit Diagnoses/Problems Assessed Diabetes (250.00) (E11.9) Hyperlipidemia [...] Weight Tips; Status:Complete - Retrospective Authorization; Done: 65Oxb6782 Some eating tips that can help you lose weight.; Status:Complete - Retrospective Authorization; Done: 59Eyk0299 Hyperlipidemia Renew: Rosuvastatin Calcium 20 MG Oral Tablet; TAKE 1 TABLET AT BEDTIME SocHx: Never smoker Tobacco Use Screening; Status:Complete; Done: 18Edh4217 Patient Instructions Please bring all medicines, vitamins, [...] Lantus 100 UNIT/ML Subcutaneous SolutionINJECT SUBCUTANEOUSLY DIRECTED. W-Ixwkgcaaafsq-P8-B12 3-35-2 MG TABSTake 1 tablet daily Losartan [...] Recorded: 19Jun2022 10:14AM Heart Rate66, R Radial Surinlcg969, RUE, Sitting Enbqazqlk33, RUE, Sitting Height5 ft 2 in (more content not included)...NormalUH TouchworksTobacco Screening.on 20-67-9218Owfqj depression screening assessmentYeVermont State Hospital [facility] [address] Work Phone: [phone] depression screening assessmentNoNewport Community Hospital [facility] [address] DO Work Phone: [phone] depression screening assessmentMild (5-9)[facility] [address] DO Work Phone: [phone] risk assessmenta) No falls within the last year [facility] [address] DO Work Phone: Tobacco use status CPHSb) NoMHighline Community Hospital [facility] [place] [address] Work Phone: [phone] Screening.1-Several daysNewport Community Hospital [facility] [place] [address] DO Work Phone: [phone] Screening.3-Nearly every dayNewport Community Hospital [facility] [address] DO Work Phone: [phone] Screening.2-More than half the daysNewport Community Hospital HeartMount Sinai Hospitalk [address] DO Work Phone: Tobacco Screening.0-Not at allNewport Community Hospital [facility] [place] [address] DO Work Phone: [phone] Screening.Somewhat DifficultNewport Community Hospital [facility] [address] DO Work Phone: [phone] A1Con 88-07-1420OWF RECOMMENDATIONSEE [facility] Campus Medical CenterComment on above:Result Comment: ADA RECOMMENDED LIMIT 4.0 - 6.0 ADA THERAPEUTIC TARGET < 7.0 ACTION SUGGESTED > 7.0Performed By: #### A1C #### [facility] [address] [place], [place] [address] Dr. Adarsh SkinnerGlucose [Mass/Vol]148 mg/dLNoSelect Medical Specialty Hospital - TrumbullComment on above:Performed By: #### A1C #### [facility] [address] [place], [place] [address] Dr. Adarsh SkinnerHbA1c (Bld) [Mass fraction]6.8 %Critically high4.5-6.2The [facility] Willard HospitalComment on above:Performed By: #### A1C #### [facility] [address] [place], [place] [address] Dr. Adarsh SkinnerCardiovasc Arrhythmia Resultson 43-32-7211Sxyfvbvplo Arrhythmia ResultsReason For Visit Reason for Visit: Holter Monitor: JADE is here for the application of a 24 hour Holter monitor. Ordering Physician: Dr. Zak Nguyen MD Diagnosis: pvc NO equipment agreement signed. JADE understands monitor is to be returned on: 02/24/22 Monitor number [id number] applied. Holter monitor returned and downloaded. Holter [...] Future Appointments Date/TimeProviderSpecialtySite 06/19/2022 10:10 Zak Moe YPHto[address] DO Signatures Electronically signed by : Fanny Zelaya L.P.N.; Feb 24 2022 11:03AM EST (Author) Electronically signed by : Zak Nguyen MD; Mar 05 2022 11:58AM EST (Author) [facility] TouchworksOffice Visit (Cardiology)on 26-29-8752Cazmql-up visit Diagnoses/Problems Assessed PVC's (premature ventricular contractions) [...] in adult Healthy Weight Tips; Status:Complete; Done: 25Vom1040 Some eating tips that can help you lose weight.; Status:Complete; Done: 19Hkd0741 PVC's (premature ventricular contractions) IO Holter Monitor up to 48 Hrs; Status:Complete; Done: 91Uad4597 SocHx: Never smoker Tobacco Use Screening; Status:Complete; Done: 49Lgv4121 Patient Instructions Please bring all medicines, vitamins, [...] Lantus 100 UNIT/ML Subcutaneous SolutionINJECT SUBCUTANEOUSLY DIRECTED. G-Bluvrmxcryua-V3-B12 3-35-2 MG Oral TabletTake 1 tablet daily [...] (more content not included)...NormalUH Touchworks Tobacco Screening.on 27-91-7270Xddt risk assessmenta) No falls within the last yearNewport Community Hospital [facility] [place] [address] DO Work Phone: Tobacco use status CPHSb) NoMGlacial Ridge Hospitalk [address] DO Work Phone: CBC AUTO DIFFon 99-16-8234FCUA #0.1 103/ulNormal 0.0-0.1[facility] [place] [facility] CenterComment on above:Performed By: #### CBC #### [facility] [address] [address] [address] Adarsh SkinnerBasophils/100 WBC (Bld)0.7 %Normal0.2-2.0[facility] [place] [facility] Comment on above:Performed By: #### CBC #### [facility] [address] [address] [address] Adarsh Salvador #0.2 103/ulNormal0.0-0.7The [facility] Will[facility] HospitalComment on above: Performed By: #### CBC #### [facility] [address] [address] [address] Adarsh Diamondosinophils/100 WBC (Bld)2.0 %Normal0.9-7.0The [facility] Comment on above:Performed By: #### CBC #### [facility] [address] [place] [address] Dr. Adarsh Diamondrythrocyte distribution width (RBC) [Ratio]15.9 %Critically high 11.0-15.0The [facility] Willard HospitalComment on above:Performed By: #### CBC #### [facility] [address] [address] [address] Adarsh SkinnerHematocrit (Bld) [Volume fraction]41.7 %Ftnsnl58.0-48.0The [facility] Will[facility] HospitalComment on above:Performed By: #### CBC #### [facility] [address] [place] [address] Dr. Adarsh SkinnerHemoglobin (Bld) [Mass/Vol]13.2 g/dTMuhtea01.0-16.0The [facility] HospitalComment on above:Performed By: #### CBC #### [facility] [address] [place] [address] Dr. Adarsh Gandhi #0.03 10e3/ulNormal0.00-0.03The [facility] Will[facility] HospitalComcorewell health butterworth hospital on above:Performed By: #### CBC #### [facility] [address] [place] [address] Dr. Adarsh Gandhi %0.3 %Normal0.0-0.5The [facility] Will[facility] HospitalComment on above: Performed By: #### CBC #### [facility] [address] [place] [address] Dr. Adarsh Zabala #1.9 103/ulNormal1.2-3.8The [facility] Will[facility] HospitalComment on above:Performed By: #### CBC #### [facility] [address] [place] [address] Dr. Adarsh Watermanmphocytes/100 WBC (Bld)20.6 %Buahoy37.5-60.0The [facility] Will[facility] HospitalComment on above:Performed By: #### CBC #### [facility] [address] [place] [address] Dr. Adarsh CasillasUAL DIFF REQNONormalThe [facility] HospitalComment on above: Performed By: #### CBC #### [facility] [address] [place] [address] Dr. Adarsh Blackwood (RBC) [Entitic mass]26.8 idXcptej27.7-34.0The [facility] HospitalComment on above:Performed By: #### CBC #### [facility] [address] [place] [address] Dr. Adarsh Farrar (RBC) [Mass/Vol]31.7 g/iXFuspgd39.9-35.2The [facility] HospitalComment on above:Performed By: #### CBC #### [facility] [address] [place] [address] Dr. Adarsh FarrarV (RBC) [Entitic vol]84.8 sXYembwr39.0-99.0The [facility] HospitalComment on above:Performed By: #### CBC #### [facility] [address] [place] [address] Dr. Adarsh Stern #0.7 103/ulNormal0.3-0.8The [facility] Will[facility] HospitalComment on above:Performed By: #### CBC #### [facility] [address] [place] [address] Dr. Adarsh Maddenocytes/100 WBC (Bld)7.2 %Normal1.7-12.0The [facility] Comment on above:Performed By: #### CBC #### [facility] [address] [place] [address] Dr. Adarsh Juárez #6.4 103/ulNormal1.4-6.5The [facility] HospitalComment on above:Performed By: #### CBC #### [facility] [address] [place] [address] Dr. Adarsh Manzanaresutrophils/100 WBC (Bld)69.2 %Qgollb95.0-75.0The [facility] HospitalComment on above:Performed By: #### CBC #### [facility] [address] [place] [address] Dr. Adarsh Toussaintlet mean volume (Bld) [Entitic vol]12.2 fLNormal9.5-13.5The [facility] HospitalComment on above:Performed By: #### CBC #### [facility] [address] [place] [address] Dr. Adarsh SkinnerPLT217 103/qrOiwzvt654-859Zpp [facility] on above: Performed By: #### CBC #### [facility] [address] [address] [address] Adarsh SkinnerRBC4.92 106/ulNormal4.20-5.40The [facility] on above:Performed By: #### CBC #### [facility] [address] [address] [address] Adarsh SkinnerWBC9.2 103/ulNormal4.0-11.0The [facility] HospitalComcorewell health butterworth hospital on above: Performed By: #### CBC #### [facility] [address] [address] [address] Adarsh SkinnerGLYCOHEMOGLOBIN A1Con 05-88-9860FED RECOMMENDATIONSEE BELOWBarnesville HospitalComcorewell health butterworth hospital on above:Result Comment: ADA RECOMMENDED LIMIT 4.0 - 6.0 ADA THERAPEUTIC TARGET < 7.0 ACTION SUGGESTED > 7.0Performed By: #### A1C ####[facility] [address] [address]Dr. Adarsh SkinnerGlucose [Mass/Vol]143 mg/dLNoSelect Medical Specialty Hospital - TrumbullComcorewell health butterworth hospital on above:Performed By: #### A1C ####[facility] [address] [address]Dr.Yilan SkinnerHbA1c (Bld) [Mass fraction]6.6 % Critically high4.5-6.2The [facility] on above:Performed By: #### A1C ####[facility] [address] [address]Dr. Adarsh SkinnerLIPID PROFILEon 31-46-2385VRLX-HDL RATIO NORMSEE [facility] Medical CenterComcorewell health butterworth hospital on above:Result Comment: 3.3 - 4.4 LOW RISK 4.4 - 7.1 AVERAGE RISK 7.1 - 11.0 MODERATE RISK >11.0 HIGH RISKPerformed By: #### CMP, LIPID #### [facility] [address] [address] [address] Adarsh SkinnerCholesterol [Mass/Vol]121 mg/dLNoal<=200[facility] [place] [facility] Comment on above:Performed By: #### CMP, LIPID #### [facility] [address] [address] [address] Adarsh SkinnerCholesterol in HDL [Mass/Vol]55 mg/zOPwaylw84-02GbhSouthern [place] Medical CenterComment on above:Performed By: #### CMP, LIPID #### [facility] [address] [place] [address] Dr. Adarsh Joesterol in LDL [Mass/Vol]50.8 mg/dLNoSelect Medical Specialty Hospital - TrumbullComment on above:Performed By: #### CMP, LIPID #### [facility] [address] [place] [address] Dr. Adarsh Dawn.total/Cholesterol in HDL [Mass ratio]2.2 {ratio} NormalThe [facility] HospitalComment on above:Performed By: #### CMP, LIPID #### [facility] [address] [place] [address] Dr. Adarsh Green NORMAL> or = 60 mg/dl - LOW CARDIOVASCULAR RISK <40 mg/dl - HIGH CARDIOVASCULAR RISKPremier Health Miami Valley HospitalComment on above:Performed By: #### CMP, LIPID #### [facility] [address] [place] [address] Dr. Adarsh Jackson CALC NORMALSEE BELOWPremier Health Miami Valley HospitalComment on above:Result Comment: <100 mg/dl OPTIMAL 100 - 129 mg/dl NEAR OR ABOVE OPTIMAL 130 - 159 mg/dl BORDERLINE HIGH 160 - 189 mg/dl HIGH >190 mg/dl VERY HIGH Performed By: #### CMP, LIPID #### [facility] [address] [place] [address] Dr. Adarsh SkinnerTriglyceride [Mass/Vol]76 mg/dLNormal<=150The [facility] Comment on above:Performed By: #### CMP, LIPID #### [facility] [address] [place] [address] Dr. Adarsh DurandLDL CALC15.2 mg/dLNoSelect Medical Specialty Hospital - TrumbullComment on above: Performed By: #### CMP, LIPID #### [facility] [address] [address] [address] Adarsh Chen 14(COMP METB)on 73-46-5934Ohpixdx [Mass/Vol]3.6 g/dLNormal 3.4-5.0[facility] [place] [facility] CenterComment on above:Performed By: #### CMP, LIPID #### [facility] [address] [address] [address] Adarsh SkinnerAlbumin/Globulin [Mass ratio]1.1 {ratio}NormalThe [facility] HospitalComment on above:Performed By: #### CMP, LIPID #### [facility] [address] [place] [address] Dr. Adarsh Fuller [Catalytic activity/Vol]57 U/IIcqcnf93-662Eus [facility] HospitalComment on above:Performed By: #### CMP, LIPID #### [facility] [address] [place] [address] Dr. Adarsh Medina [Catalytic activity/Vol]23 U/HGzqmrq36-81Wdb [facility] HospitalComment on above:Performed By: #### CMP, LIPID #### [facility] [address] [place] [address] Dr. Adarsh Hu gap [Moles/Vol]14.7 mmol/LNormalThe [facility] Comment on above:Performed By: #### CMP, LIPID #### [facility] [address] [place] [address] Dr. Adarsh Cosby [Catalytic activity/Vol]29 U/WHrxwto88-92Enq [facility] HospitalComment on above:Performed By: #### CMP, LIPID #### [facility] [address] [place] [address] Dr. Adarsh SkinnerBilirubin [Mass/Vol]0.8 mg/dLNormal0.2-1.0The [facility] Comment on above:Performed By: #### CMP, LIPID #### [facility] [address] [place] [address] Dr. Adarsh SkinnerCalcium [Mass/Vol]10.2 mg/dLCritically high8.5-10.1The [facility] HospitalComment on above:Performed By: #### CMP, LIPID #### [facility] [address] [place] [address] Dr. Adarsh SkinnerChloride [Moles/Vol]104 mmol/QAqklav09-547Hni [facility] Comment on above:Performed By: #### CMP, LIPID #### [facility] [address] [place] [address] Dr. Adarsh SkinnerCO2 [Moles/Vol]25.0 mmol/DQzjzpt60.0-32.0The [facility] Comment on above:Performed By: #### CMP, LIPID #### [facility] [address] [place] [address] Dr. Adarsh SkinnerCreatinine [Mass/Vol]1.32 mg/dLCritically high0.55-1.02The [facility] HospitalComment on above:Performed By: #### CMP, LIPID #### [facility] [address] [place] [address] Dr. Adarsh DiamondGFR-AF SYSADZLO70 mL/min/1.11s8Wkedlrroib low>=60The [facility] HospitalComment on above:Performed By: #### CMP, LIPID #### [facility] [address] [place] [address] Dr. Adarsh DiamondGFR-NON AF WRJBSKMU55 mL/min/1.77w9Wwwbuvaoip low>=60The [facility] HospitalComment on above:Performed By: #### CMP, LIPID #### [facility] [address] [place] [address] Dr. Adarsh SkinnerGlobulin (S) [Mass/Vol]3.4 g/dLNormalThe [facility] HospitalComment on above:Performed By: #### CMP, LIPID #### [facility] [address] [place] [address] Dr. Adarsh SkinnerGlucose [Mass/Vol]177 mg/dLCritically zbig25-176Qzh [facility] HospitalComment on above:Performed By: #### CMP, LIPID #### [facility] [address] [place] [address] Dr. Adarsh SkinnerPotassium [Moles/Vol]4.7 mmol/LNormal3.5-5.1The [facility] Comment on above:Performed By: #### CMP, LIPID #### [facility] [address] [address] [address] Adarsh SkinnerProtein [Mass/Vol]7.0 g/dLNormal6.4-8.2[facility] [place] [facility] Comment on above:Performed By: #### CMP, LIPID #### [facility] [address] [address] [address] Adarsh SkinnerSodium [Moles/Vol]139 mmol/QUiixga773-917ZymSouthern [place] Medical Center Comment on above:Performed By: #### CMP, LIPID #### [facility] [address] [address] [address] Adarsh SkinnerUrea nitrogen [Mass/Vol]20.0 mg/dLCritically high7.0-18.0[facility] [place] [facility] CenterComment on above:Performed By: #### CMP, LIPID #### [facility] [address] [place] [address] Dr. Adarsh Monte nitrogen/Creatinine [Mass ratio]15.2 mg/mgNormalThe [facility] HospitalComment on above:Performed By: #### CMP, LIPID #### [facility] [address] [place] [address] Dr. Adarsh [place] Screening.on 41-47-8919Sxbg risk assessmenta) No falls within the last yearR[facility] [address] DO Work Phone: Tobacco use status CPHSb) [facility] 600 DO Work Phone: MG MAMM SCREEN 3D GILSON CADon [id number] MAMM SCREEN 3D GILSON CADPatient: JADE MCNULTY Exam Date: 12/01/2021 : 1950 Gender:F Ordering : DR DOMONIQUE HATFIELD . Admission #: [id number] Family : Order #: [id number] CLICK HERE TO VIEW EXAM RADIOLOGY REPORT [...] Treatments None Family Cancers None LOCATION: [facility] BREAST COMPOSITION: Scattered areas fibroglandular density. [...] by: Javad Kendall MD on 12/01/2021 at 11:22[facility] GLYCOHEMOGLOBIN A1Con [id number] RECOMMENDATIONSEE BELOWPremier Health Miami Valley HospitalComcorewell health [facility]worth hospital on above:Result Comment: ADA RECOMMENDED LIMIT 4.0 - 6.0 ADA THERAPEUTIC TARGET < 7.0 ACTION SUGGESTED > 7.0Performed By: #### A1C #### [facility] [address] [place] [address] Dr. Adarsh SkinnerGlucose [Mass/Vol]154 mg/dLPremier Health [facility] Valley HospitalComcorewell health butterworth hospital on above:Performed By: #### A1C #### [facility] [address] [place] [address] Dr. Adarsh SkinnerHbA1c (Bld) [Mass fraction]7.0 %Critically high4.5-6.2The [facility] HospitalComment on above:Performed By: #### A1C #### [facility] [address] [place] [address] Dr. Adarsh Denton Screening.on 47-13-7035Dhea risk assessmenta) [facility] the [facility] [place] [address] DO Work Phone: Tobacco use status CPHSb) [facility] [place] 600 DO Work Phone: MICROALBUMIN, RAND URon 07-49-3467mERY06.9 mg/LNormal <=30.0The [facility] HospitalComment on above:Performed By: #### MALBR #### [facility] [address] [address] [address] dAarsh SkinnerPROF CHEM 8 (BAS METB)on 01-99-2585Uadeb gap [Moles/Vol]20.0 mmol/LNormalThe [facility] HospitalComment on above:Performed By: #### BMP #### [facility] [address] [address] [address] Adarsh SkinnerCalcium [Mass/Vol]9.6 mg/dLNormal8.5-10.1The [facility] Comment on above:Performed By: #### BMP #### [facility] [address] [address] [address] Adarsh SkinnerChloride [Moles/Vol]106 mmol/WLcispq10-795Vtq [facility] Comment on above:Performed By: #### BMP #### [facility] [address] [address] [address] Adasrh SkinnerCO2 [Moles/Vol]17.4 mmol/LCritically low21.0-32.0The [facility] HospitalComment on above:Performed By: #### BMP #### [facility] [address] [address] [address] Adarsh SkinnerCreatinine [Mass/Vol]1.28 mg/dLCritically high0.55-1.02The [facility] HospitalComment on above:Performed By: #### BMP #### [facility] [address] [address] [address] Adarsh DiamondGFR-AF KJHMPNMQ74 mL/min/1.29e2Fndsjyjulb low>=60The [facility] HospitalComment on above:Performed By: #### BMP #### [facility] [address] [address] [address] Adarsh DiamondGFR-NON AF ITITALJL44 mL/min/1.11p6Uphsmsbeoe low>=60The [facility] HospitalComment on above:Performed By: #### BMP #### [facility] [address] [address] [address] Adarsh SkinnerGlucose [Mass/Vol]50 mg/dLCritically lfw35-319Iro [facility] HospitalComment on above:Performed By: #### BMP #### [facility] [address] [address] [address] Adarsh SkinnerPotassium [Moles/Vol]4.3 mmol/LNormal3.5-5.1The [facility] Comment on above:Performed By: #### BMP #### [facility] [address] [address] [address] Adarsh SkinnerSodium [Moles/Vol]141 mmol/PAqppfp663-453Cxi [facility] Comment on above:Performed By: #### BMP #### [facility] [address] [address] [address] Adarsh SkinnerUrea nitrogen [Mass/Vol]17.0 mg/dLNormal7.0-18.0The [facility] HospitalComment on above:Performed By: #### BMP #### [facility] [address] [address] [address] Adarsh SkinnerUrea nitrogen/Creatinine [Mass ratio]13.2 mg/mgNormalThe [facility] HospitalComment on above:Performed By: #### BMP #### [facility] [address] [address] [address] Adarsh SkinnerPHQ-[facility] 50-06-9929Trheq depression screening assessmentYes [place] [address] DO Work Phone: Adult depression screening assessmentNo[place] [address] DO Work Phone: PHQ-2 VITALS0-Not at allAlexander [place] [address] DO Work Phone: PHQ-2 VITALS1-Several days[place] [address] DO Work Phone: PHQ-2 VITALS3-Nearly every [place] [address] DO Work Phone: PHQ-2 VITALSNot difficult at [facility]- [place] 250 DO Work Phone: Tobacco Screening.on 95-41-3226Jksd risk assessmentb) One or more [facility] the [facility] 250 DO Work Phone: Tobacco use status CPHSb) [facility] [place] [address] DO Work Phone: NM MYOCARDIAL PERFUSION MULTI SPECTon 95-81-3215WB MYOCARDIAL PERFUSION MULTI SPECTPatient Info Name: JADE MCNULTY Age: 71 years : 1950 Gender: Female Ht: 157 cm Wt: 98 kg BSA: 2.13 m2 Exam Date: 07/02/2021 12:11 PM Patient Status: Inpatient Exam Type: NM MYOCARDIAL PERFUSION MULTI SPECT Study Info Indications - CAD screening, intermediate CAD risk, not treadmill candidate Attending Physician: Autumn Jc [id number] Primary Nurse: Violet Hope RN Secondary Nurse: [...] infusion. LEXISCAN. Radiopharmaceutical: Tc-99m Sestamibi Camera Used: Belly Ballot Radiopharmaceutical: Tc-99m Sestamibi Camera Used: Belly Ballot Image Protocol Protocol: Rest/Stress 1 Day Rest [...] 07/02/2021 03:34 PM Dict (more content not included)...[facility] HospitalComment on above:Order Comment: Injury/Trauma or Illness?:Illness/Other How long have you had these symptoms (acute/chronic)?:Acute Reason for exam?:CAD screening Type of Exam?:Ongoing Additional signs and symptoms?:noECHOCARDIOGRAM COMPLETEon 07-01-2021 ECHOCARDIOGRAM COMPLETEPatient Info Name: JADE MCNULTY Age: 71 years : 1950 Gender: Female Ht: 157 cm Wt: 64 kg BSA: 1.68 m2 BP: 160 / 79 mmHg Exam Date: 07/01/2021 10:16 AM Patient Status: Inpatient Superintendent Building: Laura Shaw RDMS, RVT Exam Type: ECHOCARDIOGRAM COMPLETE Study Info Indications - Other - Palpitations Attending Physician: [facility] FAYE Referring Physician: STAN Lechuga; [id number] BMI: 25.61 kg/m2 Summary 1. Normal cardiac [...] Name Value Normal MV Doppler MV Decel Dimmit 593 cm/s2 MV PHT 39 ms MV [...] Valve Name Value Normal (more content not included)...[facility] HospitalXR CHEST PA/APon [id number] CHEST PA/APEXAMINATION: XR CHEST PA/AP 06/30/2021 9:51 [...] blood sugar was really low at the [facility]. Pt is having runs of [place] [...] MEYER on WedJune 30, 2021 10:21:35 PM EDTNoWitham Health ServicesComment on above:Order Comment: Injury/Trauma or Illness?:Illness/Other How [...] sugar was really low at the [facility]. Pt is having runs of [place] harris MD aware. Pads attached to monitor at this time Vital Signs Date TimeVital SignValuePerforming BkgmadwgcCgccvozv56-97-4682 10:0500Body cqxnin855.48 [facility]02-[facility]-2025 10:22-0500Body mass index (BMI) [Ratio]30.5 kg/p8QdsejstxqCleveland Clinic02-04-2025 10:-0500Body oouqpxboiyx27.3 [degF][facility]02-04-2025 10:0500Body cymmki57.74 kgC[facility]02-04-2025 10:22-0500Diastolic blood mm[Hg][facility] 03-14-2024 10:22-0500Heart rate88 /[facility] 03-14-2024 10:0500Respiratory rate16 /[facility] 03-14-2024 10:6620ZdJ4% (BldA) [Mass fraction]97 %[facility]02-04-2025 10:22-0500Systolic blood xrabgpda302 mm[Hg][facility]12-18-2024 10:020500Body kisqtc602.5 cmZak Hancock DO Work Phone: [facility]12-18-2024 10:02-0500 Body mass index (BMI) [Ratio]31.75 kg/s6WgmtxsyZak Hancock DO Work Phone: [phone]12-18-2024 10:02-0500 Body ukrzwj12.74 kgZak Hancock DO Work Phone: [facility]12-18-2024 10:02-0500 Diastolic blood kzpxgvov01 mm[Hg]Zak Santi DO Work Phone: 0(347)231-[address] [place], [place] 1947412-18-2024 10:02-0500 Heart rate82 /Teresita Hancock DO Work Phone: 6(148)087-[address] [place], [place] 1947412-18-2024 10:02-0500 Systolic blood mm[Hg]Zak Hancock DO Work Phone: 5(235)961-[address] [place], [place] 1947408-20-2024 10:29-040 Body tddkeg967.48 cmC[facility]08-20-2024 10:Body mass index (BMI) [Ratio]31.6 kg/m9CqvtnmpxlC[facility] Clinic08-20-2024 10:Body dyfiiufmoad72.4 [degF][facility]08-20-2024 10:Body cfwojm95.47 kgC[facility]08-20-2024 10:Diastolic blood lpjxaoxj73 mm[Hg][facility] 09-28-2023 10:Heart rate84 /[facility] 09-28-2023 10:Respiratory rate16 /[facility] 09-28-2023 10:1908OhB6% (BldA) [Mass fraction]96 %[facility]08-20-2024 10:Systolic blood dkwodbvr772 mm[Hg][facility]03-21-2024 13:41-0400Body vetnnq288.5 cmGary Chávez MANAGER PURCH[employer]ING[employer]DISTANCE [employer]UCATION [employer]Y LIAISON Work Phone: [facility]03-21-2024 13:41-0400 Body mass index (BMI) [Ratio]32.37 kg/o8PbznrGary Chávez MANAGER PURCH[employer]ING-DISTANCE EDUCATION FAC[employer]Y LIAISON Work Phone: [facility]03-21-2024 13:41-0400 Body fludkv73.29 kgGary Chávez MANAGER PURCHASING-DISTANCE EDUCATION FACULTY LIAISON Work Phone: [facility]03-21-2024 13:41-0400 Diastolic blood ycxcwerm82 mm[Hg]Gary Chávez MANAGER PURCHASING-DISTANCE EDUCATION FAC[employer]Y LIAISON Work Phone: [facility]03-21-2024 13:41-0400 Heart rate80 /Loli Chávez MANAGER PURCHASING-DISTANCE EDUCATION FACULTY LIAISON Work Phone: [facility]03-21-2024 13:41-0400 Systolic blood hbocnvik404 mm[Hg]Gary Chávez MANAGER PURCHASING-DISTANCE EDUCATION FACULTY LIAISON Work Phone: [facility]01-23-2024 10:00-0500 Body choieo853.48 Rosa Steward Other [employer] Other 01-23-2024 10:00-0500Body mass index (BMI) [Ratio] 32.55 kg/m2Azyecenia Bakchantels Other [employer] Other 01-23-2024 10:00-0500Body .6 [degF]Azyecenia Celsos Other [employer] Other 01-23-2024 10:00-0500Body aslnfv42.74 kgAzyecenia Bakchantels Other [employer] Other 01-23-2024 10:00-0500Diastolic blood gdaubllh38 mm[Hg] Azyecenia Celsos Other [employer] Other 01-23-2024 10:00-0500Respiratory rate18 /minAzyecenia Vargaschantels Other [employer] Other 01-23-2024 10:00-2895VlT7% (BldA) [Mass fraction]99 % Azyecenia Bakhous Other [employer] Other 01-23-2024 10:00-0500Systolic blood mm[Hg] Azyecenia Bakhous Other [employer] Other 08-08-2023 11:40-0400Body zihyau602.48 cmAziz Bakchantels Other [employer] Other 08-08-2023 11:40-0400Body mass index (BMI) [Ratio] 32.92 kg/m2Ramsey Vargashous Other [place] [employer] Other 08-08-2023 11:40-0400Body icnevknkgch60.1 [degF]Ramsey Steward Other [place] [employer] Other 08-08-2023 11:40-0400Body .65 kgRamsey Steward Other [place] [employer] Other 08-08-2023 11:40-0400Diastolic blood tdczvkbo29 mm[Hg] Ramsey Steward Other [place] [employer] Other 08-08-2023 11:40-0400Respiratory rate18 /minRamsey Steward Other [place] [employer] Other 08-08-2023 11:40-9031KdM8% (BldA) [Mass fraction]97 % Ramsey Steward Other [place] [employer] Other 08-08-2023 11:40-0400Systolic blood sauingtn150 mm[Hg] Ramsey Steward Other [place] [employer] Other 05-12-2023 10:14-0400Body ibvrqm959.48 cmKim Mason [employer] Work Phone: mp244-6330TN-[place] [address] DO Work Phone: 1(332) 390-984705-12-2023 10:14-0400Body mass index (BMI) [Ratio] 34.39 kg/m2Ki Mason [employer] Work Phone: mp394-4039FN-Hphuf [place] [address] DO Work Phone: 1(610) 801-410405-12-2023 10:14-0400Body surface area Derived from formula1.86 m2Ki Mason [employer] Work Phone: [phone]-Ocjhq [place] [facility] [address] DO Work Phone: 1(282) 744-136205-12-2023 10:14-0400Body arllpj93.28 kgKiautumn Gonzalezight Work Phone: mp015-9295UF-Srlwa [place] [facility] [address] DO Work Phone: 1(496) 316-738105-12-2023 10:14-0400Diastolic blood enmmxfoz55 mm[Hg] Domonique Mason [place] Work Phone: 1(105) [phone]-Egcgx [place] [facility] [address] DO Work Phone: 1(964) 110-752405-12-2023 10:14-040Heart rate66 /minKim Mason [place] Work Phone: 1(135) [phone]-Nwird [place] [facility] 600 DO Work Phone: 1(150) 503-938605-12-2023 10:14-0400Systolic blood pafrslde217 mm[Hg] Domonique [address] [place] Work Phone: 1(707) [phone]-Ecddm [place] [facility] 600 DO Work Phone: 1(930) 967-954905-12-2023 10:1494619 1Keleuterio Mason [place] Work Phone: 1(785) [phone]-CbqipPerham Health HospitalBur[facility] 600 DO Work Phone: Comment on above:PHQ-9 [id number] 11:20-0400Body gwehlf007.48 cmAelina Vargaschantelamandeep Other [employer] Other 03-15-2023 11:20-0400Body mass index (BMI) [Ratio] 34.53 kg/m2Ramsey Steward Other [employer] Other 03-15-2023 11:20-0400Body rfouotusglu88.3 [degF]Ramsey Steward Other [employer] Other 03-15-2023 11:20-0400Body .64 kgRamsey Steward Other [facility] [employer] Other 03-15-2023 11:20-0400Diastolic blood oyuaurgo19 mm[Hg] Ramsey Steward Other [place] [employer] Other 03-15-2023 11:20-0400Respiratory rate18 /minRamsey Steward Other [place] [employer] Other 03-15-2023 11:20-9895KvY1% (BldA) [Mass fraction]98 % Ramsey Steward Other [place] [employer] Other 03-15-2023 11:20-0400Systolic blood rayzlkyq475 mm[Hg] Ramsey Steward Other [place] [employer] Other 12-12-2022 10:58-0500Body wugbcj997.48 cmKim E [employer] Work Phone: [phone]-Yecwx [place] [address] DO Work Phone: 1(266) 340-884112-12-2022 10:58-0500Body mass index (BMI) [Ratio] 35.48 kg/m2Kim E [employer] Work Phone: mp294-9998VF-Throu [place] [address] DO Work Phone: 1(651) 591-743712-12-2022 10:58-0500Body surface area Derived from formula1.89 m2Kim E [employer] Work Phone: mp219-0142VS-Zgshj [place] [address] DO Work Phone: 1(316) 190-744112-12-2022 10:58-0500Body iuzpqn22 kgKim E [employer] Work Phone: mp642-2676MF-Hbioi [place] [address] DO Work Phone: 1(940) 103-223512-12-2022 10:58-0500Diastolic blood gxicmkmd22 mm[Hg] Domonique [place] Work Phone: 1(771) [phone]-Xudul [place] [facility] 600 DO Work Phone: 1(765) 314-187112-12-2022 10:58-0500Heart rate68 /minKim Mason [place] Work Phone: mp856-9268JG-Vshpt [place] [facility] [address] DO Work Phone: 1(584) 307-795912-12-2022 10:58-0500Systolic blood oxadljvg701 mm[Hg] Domonique [place] Work Phone: 1(263) [phone]-Ctyac [place] [facility] [address] DO Work Phone: 1(404) 693-724510-28-2022 10:36-0400Body eewxev638.48 cmKiautumn [place] Work Phone: 1(812) [phone]-Oadqp [place] [facility] 600 DO Work Phone: 1(191) 660-341910-28-2022 10:36-0400Body mass index (BMI) [Ratio] 36.03 kg/m2Domonique [place] Work Phone: 1(877) [phone]-Cemho [place] [facility] 600 DO Work Phone: 1(977) [phone] 10:36-0400Body surface area Derived from formula1.9 m2Kiautumn [place] Work Phone: 1(664) [phone]-Kheix [place] [facility] [address] DO Work Phone: 1(186) 847-501210-28-2022 10:36-0400Body tmwozj58.36 kgKim Mason [place] Work Phone: 1(834) [phone]-Ajqbd [place] [facility] [address] DO Work Phone: 1(771) 907-662810-28-2022 10:36-0400Diastolic blood ycolpfuk70 mm[Hg] Domonique [place] Work Phone: 1(811) [phone]-Muqqp [place] [facility] 600 DO Work Phone: 1(502) 674-409310-28-2022 10:36-0400Heart rate88 /minKim Mason [place] Work Phone: 1(686) [phone]-Nwtrk [place] [facility] 600 DO Work Phone: 1(990) 519-788110-28-2022 10:36-0400Systolic blood mm[Hg] Domonique Cuevas [place] Work Phone: 1(388) [phone]-IfeczGlacial Ridge [facility]-[place] 600 DO Work Phone: 1(355) 859-932707-20-2022 09:21-0400Body myzzak337.48 cmKim Mason [place] Work Phone: 1(243) [phone]-JxeicFederal Correction Institution Hospitalwalk 600 DO Work Phone: 1(869) 455-285307-20-2022 09:21-0400Body mass index (BMI) [Ratio] 37.31 kg/m2Kiautumn Mason Liu Work Phone: 1(977) [phone]-DlabdLifeCare Medical Centerk 600 DO Work Phone: 1(683) 421-622807-20-2022 09:21-0400Body surface area Derived from formula1.93 m2Kiautumn Mason Liu Work Phone: 1(422) [phone]-AjxlmLifeCare Medical Centerk 600 DO Work Phone: 1(112) 867-721607-20-2022 09:21-0400Body .53 kgKim Mason [place] Work Phone: 1(601) [phone]-KiidaLifeCare Medical Centerk 600 DO Work Phone: 1(554) 648-273007-20-2022 09:21-0400Diastolic blood mm[Hg] Domonique Cuevas [place] Work Phone: 1(552) [phone]-UigftLifeCare Medical Centerk 600 DO Work Phone: 1(528) [phone] 09:21-0400Heart rate80 /minKim Mason Liu Work Phone: 1(454) [phone]-PikjgGlacial Ridge Hospital-[place] [address] DO Work Phone: 1(424) 132-885607-20-2022 09:21-0400Systolic blood vfbigkqp028 mm[Hg] Domonique [place] Work Phone: mp759-1973LT-SlnpgRed [facility] 600 DO Work Phone: 1(887) 737-801906-14-2022 08:58-0400Diastolic blood ekgfchss12 mm[Hg] Domonique [place] Work Phone: 1(939) [phone]-Fzmyh [place] [facility] 250 DO Work Phone: 1(965) 475-707506-14-2022 08:58-0400Systolic blood dwaguxjl000 mm[Hg] Domonique [place] Work Phone: 1(643) [phone]-Fvqvb [place] [facility] 250 DO Work Phone: 1(500) 142-420706-14-2022 08:58-0400Systolic blood lhaswtzc726 mm[Hg] Domonique [place] Work Phone: 1(705) [phone]-Mywgw [place] [facility] [address] DO Work Phone: 1(793) 380-989406-14-2022 08:40-0400Diastolic blood zdskipjo22 mm[Hg] Domonique [place] Work Phone: 1(260) [phone]-Dsrwo [place] [facility] 250 DO Work Phone: 1(877) 590-817606-14-2022 08:40-0400Systolic blood ilxsvpbe170 mm[Hg] Domonique [place] Work Phone: 1(318) [phone]-Ohptv [place] [facility] 250 DO Work Phone: 1(100) 729-755206-14-2022 08:36-0400Body qagftj095.48 cmKim Mason [place] Work Phone: 1(909) [phone]-Ccoit [place] [facility] 250 DO Work Phone: 1(928) 160-971806-14-2022 08:36-0400Body mass index (BMI) [Ratio] 38.23 kg/m2Minaautumn [place] Work Phone: 1(521) [phone]-Dgpnu [place] [facility] [address] DO Work Phone: 1(779) 615-508506-14-2022 08:36-0400Body surface area Derived from formula1.95 m2Kiautumn [place] Work Phone: 1(910) [phone]-Ixjen [place] [facility] 250 DO Work Phone: 1(609) 660-965606-14-2022 08:36-0400Body .8 kgKim Mason [place] Work Phone: 1(647) [phone]-Ytozm [place] [facility] [address] DO Work Phone: 1(132) 570-363006-14-2022 08:36-0400Diastolic blood royngebg83 mm[Hg] Domonique [place] Work Phone: mp530-7008UV-Icruz [place] [facility] [address] DO Work Phone: 1(752) 187-369806-14-2022 08:36-0400Heart rate56 /minKim Mason [place] Work Phone: [phone]-Hmjah [place] [facility] [address] DO Work Phone: 1(304) 231-648006-14-2022 08:36-0400Systolic blood rqqugrvd646 mm[Hg] Domonique [place] Work Phone: mp300-3531WO-Rvkmd [place] [facility] [address] DO Work Phone: 1(730) 686-727906-14-2022 08:27-75180 1Keleuterio Cuevas [place] Work Phone: mp402-8613HS-Ettbg [place] [facility] 250 DO Work Phone: Comment on above:PHQ-9 [id number] 13:35-0400Body akscjg846.48 cmSjude Felipe Other [employer] Other 10-11-2021 13:35-0400Body mass index (BMI) [Ratio] 36.58 kg/h6Fqeinyevqtitus Felipe Other [employer] Other 10-11-2021 13:35-0400Body hflmlykwknh79.1 [degF] Oxana Felipe Other [employer] Other 10-11-2021 13:35-0400Body vjnlzi96.72 kgSttitus Felipe Other [employer] Other 10-11-2021 13:35-0400Diastolic blood nojjathp02 mm[Hg] Oxana Felipe Other [employer] Other 10-11-2021 13:35-0400Respiratory rate18 /minSjude Felipe Other [employer] Other 10-11-2021 13:35-7689AuX5% (BldA) [Mass fraction]98 % Oxana Felipe Other [employer] Other 10-11-2021 13:35-0400Systolic blood mm[Hg] Oxana Felipe Other [employer] Other Encounters Encounter DateEncounter TypeCare ProviderFacilityStart: 41-51-4670jbkbqhabah DOMINIC A LEHMANNFacility:[facility] FallsevueStart: 27-70-1041mafvrrwjqeLiwhqj E. Ross Facility:[facility] FallsevueStart: 12-11-2024 End: 92-47-9245trvlymwjuzRapsaq L. BobbsFacility:[facility] BellevueStart: 11-09-2024 ambulatorySawally RicheyFacility:[facility] BellevueStart: 10-31-2024 End: 09-76-6628qwinxodkrzUMSXSP A LEHMANNFacility:[facility] BellevueStart: 10-30-2024 End: 85-58-1845xvzdgwfmfaRXKGWI A LEHMANNFacility:[facility] BellevueStart: 06-06-2024 End: 22-29-4612czbbvstwcoMppsj L ButlerFacility:Behavior[facility] HealthStart: 05-30-2024 End: 54-98-7989jmjbamfgbbYzndg L ButlerFacility:Behavioral HealthStart: 56-59-0698hqtrziaewjWlwlx L ButlerFacility:Behavioral HealthStart: 05-16-2024 End: 59-63-4488qtclclftymTzdfr L ButlerFacility:Behavioral HealthStart: 05-09-2024 End: 44-56-4728yrsrsvspzhQpzeb L ButlerFacility:Behavioral HealthStart: 91-00-8339acfxkkidlhLputr Gil ButlerFacility:Behavioral HealthStart: 04-25-2024 End: 12-21-2343lrpxcoulqnMslvg Gil ButlerFacility:Behavioral HealthStart: 59-26-3191xbzyieroqkWgiph Gil ButlerFacility:Behavioral HealthStart: 04-11-2024 End: 64-36-1929bzvihelowhRacsv L ButlerFacility:Behavioral HealthStart: 04-11-2024 End: 79-38-6958Lbfldeu encounter procedureDenai Cordero [facility] start: 03-28-2024 End: 77-82-1957goxhwasewuBskngs E. RossFacility:[facility] BellevueStart: 03-23-2024 End: 71-77-3852spdxubbwopGngcvt E. RossFacility:[facility] FallsevueStart: 03-14-2024 End: 62-80-6811kilemjikivHatncehngGood Samaritan Hospital Work Phone: Start: 03-14-2024 End: 54-36-7862Hmpiklh encounter procedureCape Fear/Harnett [facility] [place] Work Phone: Start: 74-38-7838Uam-patient / Non-visitCape Fear/Harnett Health [facility] [employer] Work Phone: Start: 03-07-2024 End: 09-64-1467iayivhhamgQihyq L ButlerFacility:Behavioral HealthStart: 03-07-2024 End: 45-92-3246Duvfifv encounter procedureDenia Cordero [facility] start: 02-22-2024 End: 74-41-6726zfrrkeuublUicqf L ButlerFacility:Behavioral HealthStart: 02-22-2024 End: 12-24-9108Bmqfyuy encounter procedureDenia Cordero [facility] start: 02-15-2024 End: 50-31-9468kuxvypfxcpFytku L ButlerFacility:Behavioral HealthStart: 02-15-2024 End: 27-87-1103Lkkucbl encounter procedureInkun Cordero [facility] start: 02-08-2024 End: 59-76-5240vktbfsxxdmGupbt L ButlerFacility:Behavioral HealthStart: 02-08-2024 End: 52-21-4388Hrxjgin encounter procedureInkun Cordero [facility] start: 00-24-9019ucvtezencjSumjm L Butler Facility:Behavioral HealthStart: 01-26-2024 End: 43-09-4331Bjzmmm outpatient visit [address] [place] [address] Work Phone: uh FirelandsComment on above: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 RossFacility:[facility] YfnueStart: 01-11-2024 End: 58-22-0172htlurouvztVmnuc L ButlerFacility:Behavioral HealthStart: 01-11-2024 End: 44-27-1378Lgxuszw encounter procedureInkun Cordero [facility] start: 01-04-2024 End: 20-50-8849rnqattzkxmUfcnh L ButlerFacility:Behavioral HealthStart: 01-04-2024 End: 52-38-1792Kaeutoh encounter procedureInkun Cordero [facility] start: 12-31-2023 End: 05-05-4743Rub Drop Roula Richey [facility] Start: 12-31-2023 End: 09-41-3587tydssvezjdLocfwg E. RossFacility:[facility]MCStart: 12-28-2023 End: 22-71-1880phbmazbghvCfwjg L ButlerFacility:Behavioral HealthStart: 12-28-2023 End: 87-75-4508Ueqxofz encounter procedureDenia Cordero [facility] Behavioral Health start: 12-23-2023 End: 69-63-1246vpamhoiuavVFK Jodi L SchwabFacility:[facility] FallsevueStart: 12-21-2023 End: 25-50-1392gwsnxywcclZexki L ButlerFacility:Behavioral HealthStart: 12-21-2023 End: 19-59-4846Lhhrssz encounter procedureDenia Cordero [facility] start: 56-92-3800whpuuapvmvVzyus L Butler Facility:Behavioral HealthStart: 11-24-2023 End: 49-33-3396ipavmcjuewXatxh Gil ButlerFacility:Behavioral HealthStart: 11-24-2023 End: 30-59-9971Lbmvsoy encounter procedureDenia Cordero [facility] start: 11-10-2023 End: 87-87-5664vebcdxwignVkyqz Gil ArambulalerFacility:Behavioral HealthStart: 11-10-2023 End: 21-05-7269Kchlmak encounter procedureDenia Cordero [facility] start: 10-13-2023 End: 47-01-0369mtjpdqxuhfSlwtm L ButlerFacility:Behavioral HealthStart: 10-13-2023 End: 69-33-8512Pbobeag encounter procedureLakun Cordero [facility] start: 09-29-2023 End: 97-19-3350nyltweavwjSdioi Gil ButlerFacility:Behavioral HealthStart: 09-29-2023 End: 29-07-5703Ezthfhs encounter procedureInkun Cordero [facility] start: 09-28-2023 End: 97-07-3306wtfdvkhkkaOogiaqxntGood Samaritan Hospital Work Phone: Start: 09-28-2023 End: 87-07-8457Vmwvlzk encounter [facility] Nephrology Miguel A Work Phone: Start: 09-27-2023 End: 38-55-4516Kzc Drop Roula Richey [facility] Start: 09-27-2023 End: 40-40-9875fzqgvpiloaRysjad E. RossFacility:FTMCStart: 48-81-9525Xjv-patient / Non-visitCape Fear[facility] Professional Wi Work Phone: Start: 09-15-2023 End: 60-94-6079hwdlzubtdeUdhbn L ButlerFacility:Behavioral HealthStart: 09-15-2023 End: 90-78-7040Kjhurzb encounter procedureDenia Cordero [facility] start: 09-01-2023 End: 95-28-3373wsainozhtzSmuhs Gil ButlerFacility:Behavioral HealthStart: 09-01-2023 End: 81-39-6952Fidqbwq encounter procedureDenia Cordreo [facility] start: 81-92-3637fzrnqkuougLxxtan RossFacility:FT BellevueStart: 10-17-9201rthplonlmzBfnsu L ButlerFacility:Behavioral Health Start: 07-20-2023 End: 16-80-5295zesplrjridFOVDMP A LEHMANNFacility:[facility] evueStart: 86-19-5066atoprybospYuaen L ButlerFacility:Behavioral HealthStart: 06-29-2023 End: 04-69-4982plxoeovpzhNdzenz E. RossFacility:[facility] BellevueStart: 06-09-2023 End: 61-49-1950vogqxqtksdPtcof L ButlerFacility:Behavioral HealthStart: 06-09-2023 End: 85-72-2805Rpxvdkc encounter procedureInkun Cordero [facility] start: 05-26-2023 End: 23-32-5822dhkpnpuarpTmxgm Gil ButlerFacility:Behavioral HealthStart: 05-26-2023 End: 29-43-3062Xmvqxuy encounter procedureMcCullough[facility] start: 04-29-2023 End: 67-59-1464Bbvals outpatient visit 15 [facility] Hospitalabhi Hein [facility] Work Phone: [facility] Medical CenterComment on above: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 (Primary Dx); Benign essential hypertension; Mixed hyperlipidemia; PVC's (premature ventricular contractions); 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 ([facility]/HCC); BMI 32.0-32.9,adultStart: 04-29-2023 End: 05-06-9551erkvuyzlcgDLMSBEvans Memorial Hospital AmbulatoryStart: 04-27-2023 End: 23-06-2591hepjtljrmwClgqy Gil ButlerFacility:Behavioral HealthStart: 04-27-2023 End: 64-55-4879Jvyqyha encounter procedureMcCullough-[facility] start: 03-30-2023 End: 92-13-6835Zdf Drop Roula Richey [facility] Start: 03-30-2023 End: 19-64-8765Dqfgslx encounter procedureDenia Cordero [facility] start: 03-30-2023 End: 98-68-0839mhfqohkfwvGuphdw Pavel RicheyDonycility:FTMCStart: 03-09-2023 End: 43-97-6506Rpruouu encounter procedureDenia Cordero [facility] start: 03-02-2023 End: 13-97-5014uyvsugkvrnUiny Celsoamandeep Other [facility] [employer] Other Start: 55-98-2252Txtywz outpatient visit 25 minutes Ramsey StewardFPG Nephrology ClydeStart: 02-23-2023 End: 36-23-4429Xifervz encounter procedureDenia Cordero [facility] start: 02-16-2023 End: 67-84-9472Sjvqwjn encounter procedureInkun Cordero [facility] start: 02-09-2023 End: 26-87-9292Zcsdoli encounter procedureInkun Cordero [facility] start: 02-02-2023 End: 86-73-4669Evffscy encounter procedureInkun Cordero [facility] start: 01-12-2023 End: 47-43-5769Ooorodi encounter procedureDenia Cordero [facility] start: 01-05-2023 End: 86-96-8376Nuebyqf encounter procedureInkun Cordero [facility] start: 12-29-2022 End: 37-84-5593Tyynobu encounter procedureLakun L [facility] start: 12-22-2022 End: 69-96-7649Cevzwpz encounter procedureKansas City Gil [facility] start: 48-43-5862Ve RenewalKim E Hatfield Work Phone: [phone]-IjjfcChildren'S [place] 600 DO Work Phone: Start: 10-05-2022 End: 14-06-5336Gjj Drop offSfito Richey [facility] Start: 09-15-2022 End: 17-80-2183dozcrpylcmFdxi Bakchantels Other nore3D [place] Other Start: 49-30-8941Gbiehf outpatient visit 15 minutes Azyecenia Ingram [facility]phrology ClydeStart: 07-07-2022 End: 41-53-4073wlggoavmozZURNGJ ELI ROSSFacility:K5Bapit: 07-07-2022 End: 59-85-8682Fqs Drop offKIM E HATFIELD [facility] Start: 06-80-1961Zvlfdy outpatient visit 25 minutesKim E Hatfield Work Phone: [phone]-PzqsaChildren'S [place] 600 DO Work Phone: Start: 26-03-4323mtbgryytyzRz. Kim Edward Knight Facility:[id number]: 06-01-2022 End: 83-14-7855yonzysfyphYwel Bakamalia Other [facility] [employer] Other Start: 47-17-3943Ynlbdggzu encounterAzyecenia Ingram NephrologyStart: 05-26-2022 End: 95-60-6445cffykmwwigDJ KIM E KNIGHT .Facility:G7Wmbte: 04-22-2022 End: 87-85-0785qeyebwgaepEepn Bakhous Other Nort [place] Other Start: 11-51-7892Kiauys outpatient new 30 minutesAziz CelsosFPG NephrologyStart: 04-06-2022 End: 00-35-7447fqxorcwlwjUK DOMONIQUE HATFEILD .Facility:N8Cgyki: 07-03-6017mpzmshucrx Dr. Domonique HatfieldFacility:[id number]: 44-94-9983Jp RenewalKim E Hatfield Work Phone: [phone]-DrgvlSt. John's Hospital 250 DO Work Phone: Start: 70-31-4064Xipbtww encounter procedureKim E Hatfield Work Phone: [phone]-XvsrlSt. John's Hospital 250 DO Work Phone: Start: 11-21-1296lbuqzejvamGb. Kim Edward Knight Facility:[id number]: 13-95-7251CSZXBFqa E Hatfield Work Phone: [phone]-VsqzzSt. John's Hospital 250 DO Work Phone: Start: 82-10-9805uhkpvsailhZl. Kim Edward Knight Facility:[id number]: 72-57-5230Yvnuqw outpatient visit 25 minutesKim E Hatfield Work Phone: [phone]-SuaodSt. John's Hospital 250 DO Work Phone: Start: 49-89-6139Grkjojg encounter procedureKim E Hatfield Work Phone: [phone]-SpdfbRiver's Edge Hospital 600 DO Work Phone: Start: 01-07-2022 End: 67-50-3087miiphprramDC KIM E KNIGHT .Facility:H0Repzi: 12-42-3995Rkbqle outpatient visit 25 minutesKim E Hatfield Work Phone: [phone]-GkranRiver's Edge Hospital 600 DO Work Phone: Start: 58-46-2830vpicvmshmoHr. Domonique Hatfield Facility:[id number]: 12-01-2021 End: 08-41-0038ougsmyzegmGC DOMONIQUE HATFIELD .Facility:Y2Oxoac: 08-54-7909Za Renewal Domonique Hatfield Work Phone: [phone]-Fovsa [facility] 250 DO Work Phone: Start: 05-31-4385awcytbcqflTv. Domonique Hatfield Facility:[id number]: 54-90-8700Tnekmyb encounter procedureKim E Hatfield Work Phone: [phone]-BxlijRiver's Edge Hospital 600 DO Work Phone: Start: 45-08-9807tzqmnqibrmLc. Domonique Hatfield Facility:[id number]: 10-01-2021 End: 99-25-8341sfxubxjqbkXR DOMONIQUE HATFIELD .Facility:T5Xxyja: 73-68-7126Dptjzs outpatient visit 25 minutesDomonique Hatfield Work Phone: [phone]-HbdhaRiver's Edge Hospital 600 DO Work Phone: Start: 03-61-8043bqoinpibymCg. Domonique Hatfield Facility:[id number]: 08-09-2021 End: 28-02-2438yebhyijesjUY DOMONIQUE HATFIELD .Facility:N3Tnxoh: 08-06-2021 End: 82-83-9437ccezidizreUQ DOMONIQUE HATFILED .Facility:Y3Rvtxr: 52-54-4337Ygkjjlz encounter procedureDomonique Gonzalezight Work Phone: [phone]-IkdjnSt. John's Hospital 250 DO Work Phone: Start: 74-23-0438xxamcwdataWl. Domonique Hatfield Facility:[id number]: 06-30-2021 End: 43-99-3854Avlqxhlijd and management of inpatientGENERIC [facility]EC[facility]aritan Hospitaltart: 33-65-9120Vdibsweya encounterDomonique Hatfield Work Phone: [phone]-Bzofa [facility] 250 DO Work Phone: Start: 11-18-2020(URG) Urgent Care VisitStephanie BreaultFPG Urgent Care Miguel A Procedures DateProcedureProcedure DetailPerforming ClinicianStart: 02-22-2023 End: 93-72-8278Ectjdxh of placement of stent in anterior descending branch of left coronary arteryStatus post insertion of drug-eluting stent into left anterior descending (LAD) arteryGary Chávez MANAGER [employer] Work Phone: Start: 41-92-7046Wwxhalvllsu [Units/volume] in Serum or PlasmaGary Chávez MANAGER [employer] Work Phone: Start: 39-69-6064AqnueydhqdmZoyss Smith MANAGER [employer]Church[employer] Work Phone: AppendectomyiRidge Work Phone: AppendectomyKIM [facility] ArthroscopyKIEast Central Mental Health Comment on above:left kneeBilateral cataracts (disorder)DOMONIQUE [facility] Cardiac catheterizationKiNexImmune Work Phone: Cataract surgeryKiNexImmune Work Phone: CholecystectomyKim [employer] Work Phone: CholecystectomyKIM [facility] History of placement of stent in anterior descending branch of left coronary arteryStatus post insertion of drug-eluting stent into left anterior descending (LAD) arteryKim E [employer] Work Phone: HysterectomyKim E [employer] Work Phone: LaparoscopyKim E [employer] Work Phone: Lumpectomy of breastKim [employer] Work Phone: Operation on bladderKim [employer] Work Phone: Operative procedure on kneeKim E [employer] Work Phone: Tonsillectomy and adenoidectomyKim E Hatfield Work Phone: Tonsillectomy and adenoidectomyKIM HATFIELD Total colonoscopyKim E Liu Work Phone: Plan of Treatment DateCare ActivityDetailAuthorStart: 01-25-2025 End: 13-56-5871Ntuwrjq encounter kqtrcnzfi61/18/2025 10:00 AM EST Office Visit [address] [address] Zak Hancock, DO [address] [place] [address] 2, [address] [address] [facility]: 01-26[facility]2024 End: 06-99-2531Qwpqg 1996 panel - Serum or PlasmaLipid Panel Lab Routine 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 Mixed hyperlipidemia Expected: 01/26/2024 (Approximate), Expires: 01/25/2025[facility] Service Area Work Phone: Comment on above:Expected: 01/26/2024 (Approximate), Expires: 01/25/2025Start: 01-26-2024 End: 12-06-2344Nwlkntu encounter upnkgkndd65/18/2024 10:00 AM EST Office Visit [address] [address] Zak Hancock, DO [address] [place] [address] 2, [address] [address] [facility]Ststrat[facility]: 70-06-6760ZAVBS-19 Vaccine ( season)COVID-19 Vaccine ( season)[facility]Start: 24-62-5944TPJ High Risk: (Elderly (60+) or Population) (1 - 1-dose 75+ series)RSV High Risk: (Elderly (60+) or Population) (1 - 1-dose 75+ series)[facility]: 99-14-9315QNM, Provider: Zak Nguyen, Status: Pen, Time: 10:20 AMFUV, Provider: Zak Nguyen, Status: Pen, Time: 10:20 AM-[facility] 600 DO Work Phone: Start: 86-42-2601Vmfszmb stimulating hormone measurementTSH LevelK[facility]tering Health [facility]: 56-42-8138ITO, Provider: Zak Nguyen, Status: Pen, Time: 10:10 AMFUV, Provider: Zak Nguyen, Status: Pen, Time: 10:10 AMMP-[facility] 250 DO Work Phone: Start: 18-32-1025QPG, Provider: Zak Nguyen, Status: Pen, Time: 10:40 AMFUV, Provider: Zak Nguyen, Status: Pen, Time: 10:40 AMMP-[facility] 600 DO Work Phone: Start: 18-33-6653KOQ, Provider: Zak Nguyen, Status: Pen, Time: 10:20 AMFUV, Provider: Zak Nguyen, Status: Pen, Time: 10:20 AM-[facility] 600 DO Work Phone: Start: 30-94-8873AUWDCK 48, Provider: SHAUN TADEO SOC[employer] MEDIA INTERN 1,[id number], Status: Pen, Time: 1:00 PMHOLTER 48, Provider: SHAUN TADEO [employer] INTERN 1,[id number], Status: Pen, Time: 1:00 PM-[facility] 600 DO Work Phone: Start: 15-54-3033Tnzfgerwjm A1c measurementDiabetes: Hemoglobin S9DZpoknzpjxjK[facility]: 51-73-4068FCT, Provider: Zak Nguyen, Status: Pen, Time: 9:20 AMFUV, Provider: Zak Nguyen, Status: Pen, Time: 9:20 AMMP-[facility] 250 DO Work Phone: Start: 50-14-6666FAT, Provider: Zak Nguyen, Status: Pen, Time: 9:15 AMFUV, Provider: Zak Nguyen, Status: Pen, Time: 9:15 AMGl[facility] 250 DO Work Phone: Start: 97-01-6607Zdxnbqtcj for malignant neoplasm of breastMammogramUnClermont County Hospital: 95-18-9233Jkhpiohnjgkv Vaccine: 65+ Years (2 - PCV)Pneumococcal Vaccine: 65+ Years (2 - PCV)[facility]: 42-82-6381Pswphmcfdrog Vaccine: 65+ Years (2 of 2 - PCV)Pneumococcal Vaccine: 65+ Years (2 of 2 - PCV)[facility]: 97-99-6414Xssvai Vaccines (1 of 2)Zoster Vaccines (1 of 2) [facility]: 59-72-3520BHzM/Tdap/Td Vaccines (1 - Tdap)DTaP/Tdap/Td Vaccines (1 - Tdap)[facility]: 95-62-6809Mlwndgrlu C screeningHepatitis C ScreeningUnClermont County Hospital: 20-81-6407Gvgzxccp foot examinationDiabetes: Foot ExamUnClermont County Hospital: 27-38-2849Czskyszg screeningDiabetes: Retinopathy ScreeningUnClermont County Hospital: 60-34-2338Qhousbiaaskgxu vitamin b-12Vitamin B-12UnClermont County Hospital: 1948 Diabetes: Celiac Disease ScreeningDiabetes: Celiac Disease ScreeningK[facility]: 23-06-7964Tzdlm panelLipid PanelUnClermont County Hospital: 05-15-1949Medicare Annual Wellness VisitMedicare Annual Wellness Visit (AWV)[facility]: 1950 Screening for malignant neoplasm of colonUnClermont County Hospital: 41-85-7540Synavaryg for osteoporosisBone Density ScanUnWVUMedicine Harrison Community HospitalRenal function 2000 panel - Serum or PlasmaHCA [facility] Immunizations Immunization DateImmunizationNotesCare YgftamxkAischvrl04-68-5189ijcjuchzv, high dose seasonal, preservative-free; Translations: [Fluzone High Dose Vaccine] Denia [facility] HospitalivonneChillicothe Hospital11-13-2023 influenza, high dose seasonal, preservative-freeDenia [facility] Miamisburgue12-10-2021Pfizer-BioNTech COVID-19 Vacc 30 MCG/0.3ML Intramuscular SuspensionKim E Hatfield Work Phone: [phone]) [phone]-QabmySt. Charles Hospitalue12-07-2021 influenza virus vaccine, unspecified formulationSfito Richey [phone]-HqxwgSt. Charles Hospitalue12-07-2021 Seasonal, quadrivalent, recombinant, injectable influenza vaccine, preservative freeKim E Hatfield Work Phone: [phone]-AvngwSt. John's Hospital 250 DO Work Phone: [phone]) [phone]-UngMVxmc COVID-19 Vacc 30 MCG/0.3ML Intramuscular SuspensionKim E Hatfield Work Phone: [phone]-GlldnSt. Charles HospitalueComment on above: Result Comment: 2022-09-24: KOF7046-80-1118Kkrwif-MhdXSywu COVID-19 Vacc 30 MCG/0.3ML Intramuscular SuspensionKim E Hatfield Work Phone: [phone]) [phone]-AuithOhiohealth Van [facility]ert Hospital BellevueComment on above: Result Comment: 2022-09-24: NUZ7905-87-2412Wug vaccine, quadrivalent, high-dose, preservative free, age 65y+ (FLUZONE)Gary Chávez APRN-YANY Work Phone: [facility] Work Phone: [phone]) [phone]dbzttu virus vaccine, unspecified formulationSfito Richey [phone]-KygomSt. Charles Hospitalue10-17-2020 influenza, high dose seasonal, preservative-freeKiautumn Hatfield Work Phone: [facility]03-12-2020KENALOG - 10 mgOxana Felipe Other noTT[employer] Other 742271-15-8566Fosqycn per 15 mgStephanbryn Felipe Other nort [place] Other [phone] - 10 mgSttitus Felipe Other noTT[employer] Other [id number]dy polysaccharide vaccine, 23 valentDomonique Hatfield Work Phone: [phone]-MtmrkSt. Charles Hospitalue12-02-2018Toradol per 15 mgSttitus Felipe Other noTT[employer] Other Payers DatePayer CategoryPayerPolicy [id number] HEALTHCARE MEDICARE UNITED HEALTHCARE MEDICARE [id number] 2022-Present [address] [place], [place] [id number] 2023Medicare (Managed Care) UNITED HEALTHCARE MEDICARE [id number] [id number] 75-42-2145Zxaeyij Health Kidehvkgp32[id number] 2.16.840.1.806417.3.579.2.758[id number] 2.16.840.1.149055.3.579.2.58538-28-5870Skkrpmo198018205 2.16.840.1.974927.3.579.2.88695-40-8650Mfltivs360247999 2.16.840.1.694200.3.579.2.26874-30-1077Jzymfae515963659 2.16.840.1.193594.3.579.2.41243-83-6255Zjzwqbl374734025 2.16840.1.190925.3.579.2.95042-53-2951Cksqaur487362903 2.16.840.1.908022.3.579.2.72651-55-4852Rmskzwe394100848 2.16.840.1.493217.3.579.2.12328-73-6065Apwueyv624294328 2.16.840.1.383897.3.579.2.43453-26-9292Ijlzwly526619410 2.16.840.1.003178.3.579.2.75896-52-9878Gdhgmri8463407 2.16.840.1.973237.3.579.2.17324-26-6824Afcwstw5338078 2.16.840.1.752262.3.579.2.60959-73-9209Uunyqqp9030301 2.16.840.1.360463.3.579.2.52785-48-0392Rvzlbio2169549 2.16.840.1.818080.3.579.2.97336-46-1347Zmpjyho3221730 2.16.840.1.354600.3.579.2.31957-04-5293Zofsyib1724576 2.16.840.1.805828.3.579.2.19010-93-6299Whjabqd6910671 2.16.840.1.300755.3.579.2.17655-83-5249Vjkxxoc6250326 2.16.840.1.784636.3.579.2.19964-93-4269Xktvylr66859140 2.16.840.1.858231.3.579.2.75305-44-2751Uzvnbtt36111488 2.16.840.1.717673.3.579.2.53669-60-8338Tcuclml54727593 2.16.840.1.668406.3.579.2.29864-78-1733Oscptjm58832579 2.16.840.1.887465.3.579.2.47628-68-9912Fqjpmri89295105 2.16.840.1.153245.3.579.2.55181-30-8789Mlhgcze48254637 2.16.840.1.929228.3.579.2.64052-73-3349Zxuewhn12965569 2.16.840.1.732832.3.579.2.51504-25-0660Guwiibc47926477 2.16.840.1.180042.3.579.2.61573-34-4553Yaaccqh14926315 2.16.840.1.651353.3.579.2.75801-75-4661Zjbiswe200263422 2.16.840.1.328447.3.579.2.204204-18-0684Pofybhw35541627 2.16.840.1.150542.3.579.2.310201-55-8626Acmfwag00615019 2.16.840.1.334666.3.579.2.81472-97-3173Eieasjk56217754 2.16.840.1.554445.3.579.2.78361-94-6223Ykcekxc51064193 2.16.840.1.610446.3.579.2.15957-69-6944Soytdpp00608592 2.16.840.1.301673.3.579.2.85697-94-2523Ofguwxb92116638 2.840.1.840182.3.579.2.27115-69-1794Zuozonz99814319 2.840.1.894482.3.579.2.18697-11-7024Watghcm75822986 2.840.1.434412.3.579.2.40199-65-5839Ajgexve11533524 2.16.840.1.096430.3.579.2.09901-46-1402Jinhnsy02743610 2.840.1.903116.3.579.2.43253-93-5669Dvkbnck19038797 2.840.1.793891.3.579.2.27960-47-0134Sqlctnv40616406 2.16840.1.888739.3.579.2.65117-25-7308Uwbdnlf26927600 2.16.840.1.073061.3.579.2.76906-81-4121Uaxsxze27938025 2.16.840.1.138787.3.579.2.85123-20-3926Obsunjv04111963 2.16840.1.951172.3.579.2.67531-43-2539Qzkemui43664920 2.16.840.1.067646.3.579.2.33771-26-7677Gnlvwaj77042238 2.16.840.1.585480.3.579.2.69854-52-1690Tjsmxlz08706385 2.16.840.1.069366.3.579.2.68471-56-8057Otkucqv96965388 2.16.840.1.088493.3.579.2.11092-86-3690Iywehdn02952167 2.16.840.1.638042.3.579.2.56761-98-1039Vuuxbts17977148 2.16.840.1.432460.3.579.2.81885-32-0615Agedyno50165038 2.16.840.1.105480.3.579.2.49817-58-7232Tneouzq96024783 2.16.840.1.771987.3.579.2.66127-87-9542Rcxvega12099497 2.16.840.1.374971.3.579.2.89400-79-5659Otdxzgy47774380 2.16.840.1.744415.3.579.2.84312-89-6715Ivfeuxw00283679 2.16.840.1.930340.3.579.2.86878-03-4632Hwoztod38912215 2.16.840.1.475116.3.579.2.03581-86-0591Oaoodph44441036 2.16.840.1.772256.3.579.2.56039-82-3652Wfuozuy46061151 2.16.840.1.652294.3.579.2.59655-97-5509Skjbsam49818549 2.16.840.1.320495.3.579.2.50749-63-0754Pufhgps99293127 2.16.840.1.999547.3.579.2.51198-95-4805Isibfqo32061669 2.16.840.1.765681.3.579.2.22840-84-8171Ecgaoin57672191 2.16.840.1.230794.3.579.2.54904-99-0124Cetqypf28128600 2.16.840.1.454899.3.579.2.72867-33-9483Zrbnzbm10571968 2.16.840.1.035158.3.579.2.39189-00-6557Fxoswgw78914198 2.16.840.1.112835.3.579.2.62370-20-0964Ylbbxlu12502371 2.16.840.1.540896.3.579.2.40026-49-1019Evfeeaf86207000 2.16.840.1.132759.3.57[id number] 2.16.840.1.844094.3.579.[id number] 2.16.840.1.612734.3.579.2.54459-86-4815Ctorypf51223025 2.16.840.1.415593.3.579.2.80468-37-1558Fespcif12641635 2.16.840.1.078260.3.579.2.95954-22-1241Edwudrm11174315 2.16.840.1.777188.3.579.2.87535-98-6368Ikjgiaz42709540 2.16.840.1.188817.3.579.2.67350-68-7789Wwscicu37215473 2.16.840.1.206070.3.579.2.03885-85-5746Ygtniav08553656 2..840.1.021978.3.579.2.727MedicareMEBVT3DV 2.840.1.043893.19Medicare [id number] 2.840.1.748528.19Private Health InsuranceAetMedical [facility] PFFSMEBNLXGR [id number]-ahmZguq Pay [id number] BC/[id number] Social History DateTypeDetailFacilityStart: 06-19-2022 End: 88-01-5982Mbozsorh useCaffeine useUnWVUMedicine Harrison Community HospitalComment on above:Occas coffee;Start: 06-19-2022 End: 97-65-8320[facility] 07-07[facility]22 End: 80-24-9071Wnoymyh smoking statusNever smoked tobacco (finding)[facility]ueComment on above:never a smokerdenies use.Tobacco smoking statusNeverSt. Charles HospitalueComment on above:never a smokerdenies use.Start: 38-65-2878Aizinpk use and exposureSmokeless tobacco non-userUnWVUMedicine Harrison Community Hospital Work Phone: Start: 04-29-2023 End: 00-71-2338Pjpuxoi intakeLifetime non-drinker (finding)[facility] Work Phone: Start: 46-45-1604Szv Assigned At BirthNot on file [facility] Work Phone: Start: 04-19-2023 End: 11-30-7592Ehzxjxls to SARS-CoV-2 (event)Not [facility] HospitalStart: 45-49-4677Lrs Assigned At [facility]tart: 12-22-3330MhwErbkas (finding)[facility] Procedure CodeEquipment CodeEquipment Original TextEquipment IdentifierDates Drug-eluting coronary artery stent, esv-ktdzbowipjmxh-wqvcgsy-coated ()[id number] FDAStart: 11-27-2019 Functional Status CzlgZnfcqbssbuNsmxafMzntlvyn24-12-3980AQH-6LEV3ECFLRD Mild (5-9)[facility] 250 DO Work Phone: Clinical Notes 11-18-2020 to 10-31-2024 Note Date & LwksUgmcNilzvtjp06-49-4908 NoteNurse Consultation Note Reason for Visit Pt [...] NitroStat 0.4 mg Tab, See Instructions Pen Cecil, See Instructions, 3 refills rosuvastatin 20 mg [...] inactivated 11/27/2019 Recorded pneumococcal 23-valent vaccine 11/08/2018 [facility] NotePatient Education Nephrology Chronic Kidney Disease, [...] these instructions at home: Medicines ??? Take aivu-miv-kkavaoh and prescription medicines only as told by [...] contain nicotine or tobac (more content not included)...[facility]02-18-2025 NotePatient Education Nutrition BMI for Adults Body [...] for Disease Control and Prevention: cdc.gov ??? [place] [employer]: heart.org ??? National Heart, Lung, and Blood [place]: nhlbi.nih.gov This information is not intended to replace advice given to you by your health care provider. Make sure you discuss any questions you have with your health care provider. Document Revised: 10/15/2022 Document Reviewed: 10/08/2022 [employer] Patient Education ? 2023 [employer].[facility] 01-26-2024 History of Present illness Narrative* Zak [...] Rfl: Assessment/Plan 1. 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Follow Up In Cardiology [...] exam, discussion and plan. documented in this encounterMount [facility] Work Phone: 1([phone]) 257-842812-18-2024 Instructions* Patient Instructions* Rosita Nunn LPN - [...] Provided instructions on exercise. documented in this encounterMount [facility]el [facility] System Work Phone: 1(174) 973-538312-16-2024 NoteInterdisciplinary Note - Veterinary Meat Inspector Consult for positive depression screen received. Per chart notes, patient is current with counseling for these concerns. SW will remain available.[facility]11-22-2024 NoteNurse Consultation Note Reason for Visit Pt [...] NitroStat 0.4 mg Tab, See Instructions Pen Cecil, See Instructions, 3 refills rosuvastatin 20 mg [...] inactivated 11/27/2019 Recorded pneumococcal 23-valent vaccine 11/08/[facility] NotePatient Education Correction Insulin Correction insulin, [...] changing your diet, or holidays. ? New [id number] or prescription medicines. ? Illness, stress, or [...] you by your he (more content not included)...[facility]08-19-2024 NoteNurse Consultation Note Physical Exam Vitals & [...] NitroStat 0.4 mg Tab, See Instructions Pen Cecil, See Instructions, 3 refills Pen Cecil, See Instructions, 1 refills rosuvastatin 20 mg [...] inactivated 11/27/2019 Recorded pneumococcal 23-valent vaccine 11/08/2018 [facility] 09-27-2023 NotePatient Education Cardiovascular Hypertension, Adult High [...] of wine (148 mL), (more content not included)...[facility]03-21-2024 Evaluation + Plan note* Assessment & Plan Note - ANA Mac - 04/29/2023 2:24 PM EDT Associated Problem(s): BMI 32.0-32.9,adult She is actively making lifestyle changes Weight is down 11 pounds Encouraged to continue [facility] Work Phone: 1(959) 701-672703-21-2024 Evaluation + Plan note* Assessment & Plan Note - ANA Mac - 04/29/2023 2:24 PM EDTAssociated Problem(s): Diabetes ([facility]) Maintained on ARB/statin Reports most recent hemoglobin A1c 6.4 [facility] Work Phone: [phone]) 341-871803-21-2024 Evaluation + Plan note* Assessment & Plan Note - ANA Mac - 04/29/2023 2:24 PM EDTAssociated Problem(s): PVC's (premature ventricular contractions) CAD was initially identified during workup for PVC burden. February 2022 Holter 8.4% PVC burden Denies dizziness lightheadedness, no prior syncope. [facility] Work Phone: 1(590) 558-769003-21-2024 Miscellaneous Notes* Assessment & Plan Note - ANA Mac - 04/29/2023 2:24 PM EDTAssociated Problem(s): BMI 32.0-32.9,adult She is actively making lifestyle changes Weight is down 11 pounds Encouraged to continue * Assessment & Plan Note - ANA Mac - 04/29/2023 2:24 PM EDT Associated Problem(s): Diabetes ([facility]) Maintained on ARB/statin Reports most recent [...] EDT Associated Problem(s): 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 No ACS admit or acute SC. CAD was identified on testing for high PVC burden. November 2019 mLAD PCI/Mauro 2.5/22mm (+IFR) Circumflex negative RCA negative LVEF 65% May 2021 MPI no ischemia * Assessment & Plan Note - ANA Mac - 04/29/2023 2:22 PM EDT Associated Problem(s): Benign essential hypertension Optimal in office documented in this encounterMount [facility] Work Phone: 1(846) 743-650803-21-2024 Evaluation + Plan note* Assessment & Plan Note - ANA Mac - 04/29/2023 2:23 PM EDTAssociated Problem(s): Hyperlipidemia High intensity statin Annual labs through PCP [facility] Work Phone: 1([phone]) 930-928503-21-2024 Evaluation + Plan note* Assessment & Plan Note - ANA Mac - 04/29/2023 2:23 PM EDTAssociated Problem(s): 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 heart with out angina pectoris No ACS admit or acute SC. CAD was identified on testing for high PVC burden. November 2019 mLAD PCI/Mauro 2.5/22mm (+IFR) Circumflex negative RCA negative LVEF 65% May 2021 MPI no ischemia [facility] Work Phone: 1(315) 800-138603-21-2024 Evaluation + Plan note* Assessment & Plan Note - ANA Mac - 04/29/2023 2:22 PM EDTAssociated Problem(s): Benign essential hypertension Optimal in office [facility] Work Phone: 1([phone]) 720-187903-21-2024 History of Present illness Narrative* ANA Mac [...] is now greater than 3.5 years from [place] stenting, no high ischemic wrist and therefore [...] Optimal in office 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 No ACS admit or acute SC. CAD was identified on testing for high [...] if new symptoms arise. Gary Chávez MSN, MANAGER PURCHASING-DISTANCE EDUCATION FACULTY LIAISON, PMHNP-[facility] Please excuse any errors in grammar or translation related to this dictation. Voice recognition software was utilized to prepare this document. documented in this encounterMount [facility]el [facility] System Work Phone: 1(389) 625-395203-21-2024 Instructions* Patient Instructions* ANA Mac - 04/29/2023 [...] if new symptoms arise. documented in this encounterMount [facility]el [facility] Work Phone: [phone]) 112-162201-23-2024 Evaluation note* Encounter Date Diagnosis Assessment Notes Treatment Notes Treatment Clinical Notes Feb, Diabetic nephropathy associated with type 1 diabetes mellitus (ICD- 10 - E10.21) Patient follows with Dr. Hatfield in primary care office for diabetes management. Last hemoglobin D7rgarinuo below 7%. I explained the patient the [...] diet and to monitor BP at home [facility] Other 08-08-2023 Evaluation note* Encounter Date Diagnosis Assessment Notes Treatment Notes Treatment Clinical Notes Sep, Diabetic nephropathy associated with type 1 diabetes mellitus (ICD- 10 - E10.21) Patient follows with Dr. Hatfield in primary care office for diabetes management. Last hemoglobin F3mpczrhtt below 7%. I explained the patient the [...] samedose of amlodipine 5 mg p.o. daily [facility] Other 04-18-2023 NotePROCEDURE: US KIDNEYS DATE: 05/26/2022 [...] Electronically authenticated by: RADHA OGLESBY Date: 2022-05-26 12:07[facility]03-15-2023 Evaluation note* Encounter Date Diagnosis Assessment Notes [...] 10 mg if blood pressure remains uncontrolled [facility] Other 10-11-2021 Evaluation note* Encounter Date Diagnosis Assessment Notes Treatment Notes Treatment Clinical Notes Nov, Injury of back, initial encounte r (ICD-10 - S39.92XA) patient is in so much pain she is unable to speak and breath; patient is tearful and states pain isintolerable. Recommend ER due to level of discomfort at this time. [facility] Other Evaluation + Plan note Future Appointments Appointment Date:10/05/2022 04:40:00 PM Scheduled Provider:Dewayne Richey MD Location:[facility] Future Appointments Appointment Date:12/29/2022 11:00:00 AM Scheduled Provider: [facility]FM Medicare Wellness Subsequent Appointment Date:04/05/2023 10:00:00 AM Scheduled Provider:Dewayne Richey MD Location:[facility] Appointment Type: Open Diagnostic Tests Pending * CBC w/ Auto Diff 10/05/22 * Comprehensive Metabolic Panel 10/05/22 * Lipid Panel 10/05/22 * HgbA1c 10/05/22 * Microalbumin Level Urine 10/05/22 * U Protein/Creat [facility] Appointment Date:12/29/2022 10:00:00 AM Scheduled Provider:Denia Ding Location:[facility] Appointment Type:BH Therapy 60 Appointment Date:04/05/2023 10:00:00 AM Scheduled Provider:Dewayne Richey MD Location:[facility] Appointment Type: Open Appointment Date:12/22/2023 11:00:00 AM Scheduled Provider: Location:[facility] Appointment Type: Medicare Wellness [facility] Behavioral Health evaluation + Plan note Future Appointments Appointment Date:01/05/2023 10:00:00 AM Scheduled Provider:Denia Ding Location:[facility] Appointment Type:BH Therapy 60 Appointment Date:04/05/2023 10:00:00 AM Scheduled Provider:[facility]ew[facility]FM Open Appointment Date:12/22/2023 11:00:00 AM Scheduled Provider: Location:[facility] Appointment Type: Medicare Wellness Subsequent [facility] Behavioral Health evaluation + Plan note Future Appointments Appointment Date:01/12/2023 10:00:00 AM Scheduled Provider:Denia Ding Location:[facility] Appointment Type:BH Therapy 60 Appointment Date:04/05/2023 10:00:00 AM Scheduled Provider:Dewayne Richey MD [facility] Type:FM Open Appointment Date:12/22/2023 11:00:00 AM Scheduled Provider: Location:[facility] Appointment Type:FM Medicare Wellness Subsequent [facility] Behavioral Health evaluation + Plan note Future Appointments Appointment Date:01/19/2023 01:00:00 PM Scheduled Provider:Denia Ding Location:[facility] Appointment Type:BH Therapy 60 Appointment Date:04/05/2023 10:00:00 AM Scheduled Provider:Dewayne Richey MD Location:[facility] Appointment Type:FM Open Appointment Date:12/22/2023 11:00:00 AM Scheduled Provider: Location:[facility] Appointment Type:FM Medicare Wellness Subsequent [facility] Behavioral Health evaluation + Plan note Future Appointments Appointment Date:02/09/2023 11:00:00 AM Scheduled Provider:Denia Ding Location:[facility] Appointment Type:BH Therapy 60 Appointment Date:03/30/2023 10:00:00 AM Scheduled Provider:Dewayne Richey MD Location:[facility] Appointment Type:FM Open Appointment Date:12/22/2023 11:00:00 AM Scheduled Provider: Location:[facility] Appointment Type: Medicare Wellness [facility] Behavioral Health evaluation + Plan note Future Appointments Appointment Date:02/16/2023 10:00:00 AM Scheduled Provider:Denia Ding Location:[facility] Appointment Type:BH Therapy 60 Appointment Date:03/30/2023 10:00:00 AM Scheduled Provider:Dewayne Richey MD Location:[facility] Appointment Type:FM Open Appointment Date:12/22/2023 11:00:00 AM Scheduled Provider: Location:[facility] Appointment Type: Medicare Wellness [facility] Behavioral Health evaluation + Plan note Future Appointments Appointment Date:02/23/2023 02:00:00 PM Scheduled Provider:Denia Ding Location:[facility] Appointment Type:BH Therapy 60 Appointment Date:03/30/2023 10:00:00 AM Scheduled Provider:Dewayne Richey MD Location:[facility] Appointment Type:FM Open Appointment Date:12/22/2023 11:00:00 AM Scheduled Provider: Location:[facility] Appointment Type: Medicare Wellness [facility] Behavioral Health evaluation + Plan note Future Appointments Appointment Date:03/09/2023 11:00:00 AM Scheduled Provider:Denia Ding Location:[facility] Appointment Type:BH Therapy 60 Appointment Date:03/30/2023 10:00:00 AM Scheduled Provider:Dewayne Richey MD Location:[facility] Appointment Type: Open Appointment Date:12/22/2023 11:00:00 AM Scheduled Provider: Location:[facility] Appointment Type:FM Medicare Wellness Subsequent [facility] Behavioral Health evaluation + Plan note Future Appointments Appointment Date:03/23/2023 10:00:00 AM Scheduled Provider:Denia Ding Location:[facility] Appointment Type:BH Therapy 60 Appointment Date:03/30/2023 10:00:00 AM Scheduled Provider:Dewayne Richey MD Location:[facility] Appointment Type: Open Appointment Date:12/23/2023 09:30:00 AM Scheduled Provider: Location:[facility] Appointment Type:FM Medicare Wellness Subsequent [facility] Behavioral Health evaluation + Plan note Future Appointments Appointment Date:04/13/2023 09:00:00 AM Scheduled Provider:Denia Ding Location:[facility] Appointment Type:BH Therapy 60 Appointment Date:06/29/2023 10:00:00 AM Scheduled Provider:Dewayne Richey MD Location:[facility] Appointment Type:FM Open Appointment Date:12/23/2023 09:30:00 AM Scheduled Provider: Location:[facility] Appointment Type:FM Medicare Wellness Subsequent [facility] Behavioral Health evaluation + Plan note Future Appointments Appointment Date:05/12/2023 12:00:00 PM Scheduled Provider:Denia Ding Location:[facility] Appointment Type:BH Therapy 60 Appointment Date:06/29/2023 10:00:00 AM Scheduled Provider:Dewayne Richey MD Location:[facility] Appointment Type:FM Open Appointment Date:12/23/2023 09:30:00 AM Scheduled Provider: Location:[facility] Appointment Type:FM Medicare Wellness Subsequent [facility] Behavioral Health evaluation + Plan note Future Appointments Appointment Date:06/09/2023 05:00:00 PM Scheduled Provider:Denia Ding Location:[facility] Appointment Type:BH Therapy 60 Appointment Date:06/29/2023 10:00:00 AM Scheduled Provider:Dewayne Richey MD Location:[facility] Appointment Type:FM Open Appointment Date:12/23/2023 09:30:00 AM Scheduled Provider: Location:[facility] Appointment Type: Medicare Wellness [facility] Behavioral Health evaluation + Plan note Future Appointments Appointment Date:06/29/2023 10:00:00 AM Scheduled Provider:Dewayne Richey MD Location:[facility] Appointment Type:FM Open Appointment Date:12/23/2023 09:30:00 AM Scheduled Provider: Location:[facility] Appointment Type:FM Medicare Wellness Subsequent [facility] Behavioral Health evaluation + Plan note Future Appointments Appointment Date:09/15/2023 10:00:00 AM Scheduled Provider:Denia Ding Location:[facility] Appointment Type:BH Therapy 60 Appointment Date:09/28/2023 10:00:00 AM Scheduled Provider:Dewayne Richey MD Location:[facility] Appointment Type:FM Open Appointment Date:09/29/2023 10:00:00 AM Scheduled Provider:Denia Ding Location:[facility] Appointment Type:BH Therapy 60 Appointment Date:10/13/2023 10:00:00 AM Scheduled Provider:Denia Ding Location:[facility] Appointment Type:BH Therapy 60 Appointment Date:12/23/2023 01:00:00 PM Scheduled Provider: Location:[facility] Appointment Type:FM Medicare Wellness Subsequent [facility] Behavioral Health evaluation + Plan note Future Appointments Appointment Date:09/28/2023 10:00:00 AM Scheduled Provider:Dewayne Richey MD Location:[facility] Appointment Type:FM Open Appointment Date:09/29/2023 10:00:00 AM Scheduled Provider:Denia Ding Location:[facility] Appointment Type:BH Therapy 60 Appointment Date:10/13/2023 10:00:00 AM Scheduled Provider:Denia Ding Location:[facility] Appointment Type:BH Therapy 60 Appointment Date:12/23/2023 01:00:00 PM Scheduled Provider: Location:[facility] Appointment Type: Medicare Wellness Subsequent [facility] Behavioral Health evaluation + Plan note Future Appointments Appointment Date:09/29/2023 10:00:00 AM Scheduled Provider:Denia Ding Location:[facility] Appointment Type:BH Therapy 60 Appointment Date:10/13/2023 10:00:00 AM Scheduled Provider:Denia Ding Location:[facility] Appointment Type:BH Therapy 60 Appointment Date:12/23/2023 01:00:00 PM Scheduled Provider: Location:[facility] Appointment Type:FM Medicare Wellness Subsequent Appointment Date:03/27/2024 10:00:00 AM Scheduled Provider:Dewayne Richey MD Location:[facility] Appointment Type: Open [facility] Evaluation + Plan note Future Appointments Appointment Date:10/13/2023 10:00:00 AM Scheduled Provider:Denia Ding Location:[facility] Appointment Type:BH Therapy 60 Appointment Date:12/23/2023 01:00:00 PM Scheduled Provider: Location:[facility] Appointment Type: Medicare Wellness Subsequent Appointment Date:03/27/2024 10:00:00 AM Scheduled Provider:Dewayne Richey MD Location:[facility] Appointment Type:[facility] Behavioral Health evaluation + Plan note Future Appointments Appointment Date:11/10/2023 10:00:00 AM Scheduled Provider:Denia Ding Location:[facility] Appointment Type:BH Therapy 60 Appointment Date:12/23/2023 01:00:00 PM Scheduled Provider: Location:[facility] Appointment Type: Medicare Wellness Subsequent Appointment Date:03/27/2024 10:00:00 AM Scheduled Provider:Dewayne Richey MD Location:[facility] Appointment Type:[facility] Behavioral Health evaluation + Plan note Future Appointments Appointment Date:11/24/2023 10:00:00 AM Scheduled Provider:Denia Ding Location:[facility] Appointment Type:BH Therapy 60 Appointment Date:12/23/2023 01:00:00 PM Scheduled Provider: Location:[facility] Appointment Type: Medicare Wellness Subsequent Appointment Date:03/27/2024 10:00:00 AM Scheduled Provider:Dewayne Richey MD Location:[facility] Appointment Type:[facility] Behavioral Health evaluation + Plan note Future Appointments Appointment Date:12/08/2023 10:00:00 AM Scheduled Provider:Denia Ding Location:[facility] Appointment Type:BH Therapy 60 Appointment Date:12/23/2023 01:00:00 PM Scheduled Provider: Location:[facility] Appointment Type: Medicare Wellness Subsequent Appointment Date:03/27/2024 10:00:00 AM Scheduled Provider:Dewayne Richey MD Location:[facility] Appointment Type:[facility] Behavioral Health Evaluation + Plan note Future Appointments Appointment Date:12/23/2023 01:00:00 PM Scheduled Provider: Location:[facility] Appointment Type: Medicare Wellness Subsequent Appointment Date:12/28/2023 10:00:00 AM Scheduled Provider:Denia Ding Location:[facility] Appointment Type:BH Therapy 60 Appointment Date:03/27/2024 10:00:00 AM Scheduled Provider:Dewayne Richey MD Location:[facility] Appointment Type: Open [facility] Behavioral Health evaluation + Plan note Future Appointments Appointment Date:12/31/2023 01:20:00 PM Scheduled Provider: Location:[facility] Appointment Type: Lab Draw Appointment Date:01/04/2024 10:00:00 AM Scheduled Provider:Denia Ding Location:[facility] Appointment Type:BH Therapy 60 Appointment Date:03/27/2024 10:00:00 AM Scheduled Provider:Dewayne Richey MD Location:[facility] Appointment Type: Open Appointment Date:12/25/2024 01:00:00 PM Scheduled Provider: Location:[facility] Appointment Type:FM Medicare Wellness Subsequent Future Scheduled Tests Laboratory* HgbA1c 12/23/23 * HCV Antibody RFX to Quant PCR 12/23/23 [facility] Behavioral Health evaluation + Plan note Future Appointments Appointment Date:01/04/2024 10:00:00 AM Scheduled Provider:Denia Ding Location:[facility] Appointment Type:BH Therapy 60 Appointment Date:03/27/2024 10:00:00 AM Scheduled Provider:Dewayne Richey MD Location:[facility] Appointment Type: Open Appointment Date:12/25/2024 01:00:00 PM Scheduled Provider: Location:[facility] Appointment Type:FM Medicare Wellness Subsequent Diagnostic Tests Pending * HCV Antibody RFX to Quant PCR 12/31/23 [facility] Evaluation + Plan note Future Appointments Appointment Date:01/11/2024 09:00:00 AM Scheduled Provider:Denia Ding Location:[facility] Appointment Type:BH Therapy 60 Appointment Date:03/27/2024 10:00:00 AM Scheduled Provider:Dewayne Richey MD Location:[facility] Appointment Type:FM Open Appointment Date:12/25/2024 01:00:00 PM Scheduled Provider: Location:[facility] Appointment Type: Medicare Wellness Subsequent [facility] Behavioral Health evaluation + Plan note Future Appointments Appointment Date:01/17/2024 09:30:00 AM Scheduled Provider:Dewayne Richey MD Location:[facility] Appointment Type:FM Open Appointment Date:01/18/2024 10:00:00 AM Scheduled Provider:Denia Ding Location:[facility] Appointment Type:BH Therapy 60 Appointment Date:03/27/2024 10:00:00 AM Scheduled Provider:Dewayne Richey MD Location:[facility] Appointment Type:FM Open Appointment Date:12/25/2024 01:00:00 PM Scheduled Provider: Location:[facility] Appointment Type: Medicare Wellness [facility] Behavioral Health evaluation + Plan note Future Appointments Appointment Date:02/15/2024 09:00:00 AM Scheduled Provider:Denia Ding Location:[facility] Appointment Type:BH Therapy 60 Appointment Date:02/22/2024 09:00:00 AM Scheduled Provider:[facility]BH [facility] 60 Appointment Date:03/27/2024 10:00:00 AM Scheduled Provider:Dewayne Richey MD Location:[facility] Appointment Type:FM Open Appointment Date:12/25/2024 01:00:00 PM Scheduled Provider: Location:[facility] Appointment Type:FM Medicare Wellness [facility] Behavioral Health evaluation + Plan note Future Appointments Appointment Date:02/22/2024 09:00:00 AM Scheduled Provider:Denia Ding Location:[facility] Appointment Type:BH Therapy 60 Appointment Date:03/27/2024 10:00:00 AM Scheduled Provider:Dewayne Richey MD Location:[facility] Appointment Type:FM Open Appointment Date:12/25/2024 01:00:00 PM Scheduled Provider: Location:[facility] Appointment Type:FM Medicare Wellness [facility] Behavioral Health evaluation + Plan note Future Appointments Appointment Date:03/07/2024 09:00:00 AM Scheduled Provider:Denia Ding Location:[facility] Appointment Type:BH Therapy 60 Appointment Date:03/27/2024 10:00:00 AM Scheduled Provider:Dewayne Richey MD Location:[facility] Appointment Type:FM Open Appointment Date:12/25/2024 01:00:00 PM Scheduled Provider: Location:[facility] Appointment Type: Medicare Wellness [facility] Behavioral Health evaluation + Plan note Future Appointments Appointment Date:03/21/2024 09:00:00 AM Scheduled Provider:Denia Ding Location:[facility] Appointment Type:BH Therapy 60 Appointment Date:03/23/2024 10:30:00 AM Scheduled Provider:Dewayne Richey MD Location:[facility] Appointment Type:FM Open Appointment Date:12/25/2024 01:00:00 PM Scheduled Provider: Location:[facility] Appointment Type: Medicare Wellness [facility] Behavioral Health evaluation + Plan note Future Appointments Appointment Date:04/18/2024 09:00:00 AM Scheduled Provider:Denia Ding Location:[facility] Appointment Type:BH Therapy 60 Appointment Date:04/25/2024 10:00:00 AM Scheduled Provider:Denia Ding Location:[facility] Appointment Type:BH Therapy 60 Appointment Date:05/02/2024 09:00:00 AM Scheduled Provider:Denia Ding Location:[facility] Appointment Type:BH Therapy 60 Appointment Date:05/09/2024 08:15:00 AM Scheduled Provider:Dewayne Richey MD Location:[facility] Appointment Type:FM Open Appointment Date:12/25/2024 01:00:00 PM Scheduled Provider: Location:[facility] Appointment Type: Medicare Wellness Subsequent [facility] Behavioral Health evaluation noteNo [place] [employer] Other Evaluation note* Diagnosis 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- Primary Benign essential hypertension Essential hypertension, benign Mixed hyperlipidemia PVC's (premature ventricular contractions) Other premature beats 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 ([facility]) BMI 32.0-32.9,adult documented in this encounter [facility] Work Phone: Evaluation note* Diagnosis Onset Date Resolution Status Chronic kidney disease, stage 3b acuteDiabetic nephropathy associated with type 2 diabetes mellitusacute HypercalcemiaacuteHyperlipemiaacuteHypertensive nephropathyacuteObesityacute [facility] Work Phone: evaluation note* Diagnosis 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- Primary Benign essential hypertension Essential hypertension, benign Mixed hyperlipidemia PVC's (premature ventricular contractions) Other premature beats 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 BMI 32.0-32.9,adult 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 PVC's (premature ventricular contractions) Other premature beats Benign essential hypertension Essential hypertension, benign 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) Mixed hyperlipidemia BMI 32.0-32.9,adult Never smoked tobacco documented in this encounter [facility] Work Phone: evaluation note* Diagnosis Onset Date Resolution Status Admit Date Chronic kidney disease, stage 3b acuteFebruary 2024 10:18amDiabetic nephropathy associated with type 2 diabetes mellitusacuteFebruary 2024 10:18amHypercalcemiaacuteFebruary 2024 10:18amHyperlipemiaacuteFebruary 2024 10:18amHypertensive nephropathy acuteFebruary 2024 10:18amObesityacuteFebruary 2024 10:18am [facility] Work Phone: History general Narrative - Reported* Type Description Date Medical History Insomnia Medical HistoryAnxietyMedical HistoryOAB (overactive bladder)Medical Historytype I diabetesMedical Historyhigh cholesterolSurgical Historytonsillectomy and adenoidectomySurgical HistoryappendectomySurgical Historyknee surgerySurgical Historycyst removalSurgical HistoryhysterectomySurgical Historycholecystectomy Surgical Historybowel surgerySurgical HistoryeyesSurgical Historylumpectomy Surgical Historybladder slingHospitalization Historysee above PrepClass Other Hiskujf general Narrative - Reported* Type Description Date Medical History Insomnia Medical HistoryAnxietyMedical HistoryOAB (overactive bladder)Medical Historytype I diabetesMedical Historyhigh cholesterolMedical HistoryCHRONIC KIDNEY DISEASE 3Medical HistoryDIABETIC RETINOPATHY ASSOCIATED WITH TYPE I DIABETES MELLITUS Medical HistoryGASTROPARESISMedical HistoryGERDMedical HistoryPURE HYPERCHOLESTEROLEMIASurgical Historytonsillectomy and adenoidectomySurgical HistoryappendectomySurgical Historyknee surgerySurgical Historycyst removal Surgical HistoryhysterectomySurgical HistorycholecystectomySurgical Historybowel surgerySurgical HistoryeyesSurgical HistorylumpectomySurgical Historybladder slingSurgical HistoryBOWEL BLOCKAGESurgical HistoryBREAST LUMPHospitalization Historysee abovespitalization History4 CHILD BIRTHS PrepClass Other History of Present illness Narrative* Patient [...] our next steps are going to be. [facility] 600 DO Work Phone: History of Present illness Narrative* Patient returns in follow-up of problems as noted. In the interim she has had no angina CHF or arrhythmia symptomatology. She weaned off beta-fegn therapy and repeat Holter demonstrated frequent PVCs [...] lipids also appear to be adequately addressed. [facility] 600 DO Work Phone: History of [...] merits of diet and weight loss. [facility] 250 DO Work Phone: History of [...] to call if they arise or occur. [facility] 600 DO Work Phone: Hospital course Narrative No data available for this section [facility] No data available for this section [facility]Progress note No data available for this section [facility]healthReason for referral (narrative)* Consultation (Routine) - AuthorizedSpecialtyDiagnoses / ProceduresReferred By Contact Referred To ContactCardiology Diagnoses 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 Procedures Follow Up In Cardiology Gary Chávez APRN-CNP [address], [facility] [address] [place] [address] Referral IDStatusReasonStart DateExpiration DateVisits RequestedVisits [id number] [facility] Work Phone: Family History No Family History [...] and content) DATE CREATED AUTHOR 07/31/2021 [facility] DATE CREATED AUTHOR AUTHOR'S ORGANIZ ATION 06/21/2022 [facility] DATE CREATED AUTHOR AUTHOR'S ORGANIZ ATION 07/17/2022 [facility] DATE CREATED AUTHOR AUTHOR'S ORGANIZ ATION 12/25/2022 [employer] DATE CREATED AUTHOR AUTHOR'S ORGANIZ ATION 09/29/2023 [facility] DATE CREATED AUTHOR AUTHOR'S ORGANIZ ATION 01/04/2024 [facility] DATE CREATED AUTHOR AUTHOR'S ORGANIZ ATION 01/06/2024 [facility] DATE CREATED AUTHOR AUTHOR'S ORGANIZ ATION 01/29/2024 [facility] DATE CREATED AUTHOR AUTHOR'S ORGANIZ ATION 03/24/2024 [facility] DATE CREATED AUTHOR AUTHOR'S ORGANIZ ATION 10/31/2024 [facility] DATE CREATED AUTHOR AUTHOR'S ORGANIZ ATION 11/13/2024 [facility] DATE CREATED AUTHOR AUTHOR'S ORGANIZ ATION 12/14/2024 [facility] REASON FOR VISIT (unrecogniz ed section and content) ReasonCommentsFollow-up9 monthsReasonCommentsFollow-up9 monthSpecialtyDiagnoses / ProceduresReferred By ContactReferred To ContactCardiology Diagnoses 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 Procedures Follow Up In Cardiology Kyler Gary K, MANAGER [employer] [address] [place] [address] Phone: tel: fax: Referral IDStatusReasonStart DateExpiration DateVisits RequestedVisits [id number]/[id number] Patient Care team informatio n (unrecognized section and content) Team MemberRelationshipSpecialtyStart DateEnd Date Domonique Hatfield MD [address] [facility] [place] [address] [facility]05/18/02 Team Status: Active Member Role Status [...] MemberRelationshipSpecialtyStart DateEnd Date Dewayne Richey MD [address] [facility] [place] [address] PCP [facility]01/26/24 Team Status: Active Member Role Status [...] 14, 2024 End: March 14, 2024Dewayne Richey MDPriNevada [facility] ProviderActiveStart: March 14, 2024 End: March 14, [...] BE BASED ON THE PRIMARY CLINICAL RECORDS. [employer] provides no warranty or guarantee of the accuracy or completeness of information in this document.
[2025-01-19 10:38] LABS: Cholesterol 120 mg/dL (<=200); HDL Cholesterol 64 mg/dL (40-60); Triglycerides 27 mg/dL (<=150); VLDL CHOLESTEROL 5.4 mg/dL
== END 2025-01-19 09:06 | disposition home or self-care (01) ==
LOC: LAB 09:07
PROVIDERS: PCP Student in an Organized Health Care Education/Training Program; Visit Provider Internal Medicine Cardiovascular Disease
DX: I25.10 Atherosclerotic heart disease of native coronary artery without angina pectoris (principal); E78.2 Mixed hyperlipidemia
CPT/HCPCS: 36415; 80061